=== PATIENT | male | born 1945 | race Caucasian/White ===

== ENCOUNTER 2017-01-11 08:16 | Day surgery (SDC) | payer MEDICARE, OTHER ==
[~2017-01-11] VITALS: Ht 190.5 cm; Wt 102.3 kg
[~2017-01-11 08:16] MED LIST: ADVAI250I INH; ALBU8I INH; ATEN1TAB55 PO; ATOR40TA49 PO; CLON.1 PO; DILTSR120 PO; FURO1TAB93 PO; GLIP10TA6 PO; JANT2TAB PO; JANU50TA PO; LEVO50IN PO; NEXI40CA PO; SODI650T PO; VITA400D PO; WARF2.5T40 PO
[2017-01-11 08:36] VITALS: BP 170/81; PULSE 75; RESP 20; TEMP 97.7; O2SAT 97
[2017-01-11] MEDS ORDERED: LEVO50TA4 PO (08:57)
[2017-01-11] MEDS ORDERED: NEXI40CA PO (08:57)
[2017-01-11] MEDS ORDERED: LEVO175T2 PO (08:57)
[2017-01-11] MEDS ORDERED: VITA400T2 (08:57)
[2017-01-11] MEDS ORDERED: ATOR40TA16 PO (08:57)
[2017-01-11] MEDS ORDERED: FURO20TA PO (08:57)
[2017-01-11] MEDS ORDERED: ATEN100T PO (08:57)
[2017-01-11] MEDS ORDERED: FURO40TA PO (08:57)
[2017-01-11] MEDS ORDERED: CLON0.1T PO (08:57)
[2017-01-11] MEDS ORDERED: DILT-64 PO (08:57)
[2017-01-11] MEDS ORDERED: JANT2.5T PO (08:57)
[2017-01-11] MEDS ORDERED: SODI650T PO (08:57)
[2017-01-11] MEDS ORDERED: GLIP5TAB8 PO (08:57)
[2017-01-11] MEDS ORDERED: SITA50 PO (08:57)
[2017-01-11 09:12] LABS: APTT (PATIENT) 35.8 SEC (24.3-30.1); INTERNATIONAL NORMALIZED RATIO 1.3 RATIO
[2017-01-11 09:14] LABS: BICARBONATE 26.6 MEQ/L (21.0-32.0); POTASSIUM 4.2 MEQ/L (3.5-5.1)
[2017-01-11] MEDS ORDERED: MIDAZOLAM HCL 5 MG/5 ML VIAL ONE (11:10)
[2017-01-11] MEDS ORDERED: fentaNYL CITRATE 250 MCG/5 ML AMP ONE (11:10)
--- NOTE | 2017-01-11 12:32 | PD.RAD ---
Post Procedure Progress Note Pre Procedure Diagnosis: (1) Acute renal failure superimposed on stage 4 chronic kidney disease (2) Dialysis AV fistula malfunction Post Procedure Diagnosis: (1) Dialysis AV fistula malfunction (2) Acute renal failure superimposed on stage 4 chronic kidney disease Procedure Date: Jan 11, 2017 Supervising Radiologist: Alexi Hurtado Anesthesia: Local, Conscious Sedation Plan of Activity Patient to Unit: ROPU Patient Condition: Good Additional Comments: Venogram demonstrated a centeral venous occlusion. Successful PTBA with excellent flow post procedure. Full dictated report to follow. See PACS Report for procedural detail/treatment Alexi Hurtado MD Jan 11, 2017 12:31
[2017-01-11 12:40] VITALS: BP 139/86; PULSE 68; RESP 16; TEMP 97.4; O2SAT 92
[2017-01-11 12:55] VITALS: BP 151/76; PULSE 56; RESP 18; O2SAT 92
[2017-01-11] MEDS ORDERED: IODIXANOL 320 MG/ML 50 ML VIAL (for RAD SPEC) I-ARTERIAL ONE (13:20)
[2017-01-11 13:25] VITALS: BP 159/62; PULSE 67; RESP 18; O2SAT 91
--- NOTE | 2017-01-11 13:31 | RADRPT ---
EXAM DATE/TIME: 01/11/2017 11:11 [facility] COMPARISON: FISTULAGRAM, RIGHT, January 11, 2017, 0:00. INDICATIONS : Patient presents with right upper arm edema in need of fistulagram with with possible central venous stenosis.. 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 Right upper extremity venogram. Right subclavian venogram. Evaluation of the superior vena cava. Angioplasty of an occluded segment of right subclavian vein. Followup venogram x2. The risks, benefits and alternatives to the procedure were explained and verbal and written consent w as obtained. The site was prepped in sterile fashion. Full sterile technique was used, including ca p, mask, sterile gloves and gown and a large sterile sheet. Hand hygiene and 2% chlorhexidine and/or betadine/alcohol prep was utilized per protocol for cutaneous antisepsis. The skin and subcutaneous tissues were infiltrated with local anesthetic solution The patient's arm was evaluated with ultrasound. The outflow was via the cephalic vein. This was iden tified and accessed under direct ultrasound visualization. Venography of the upper extremity was perf ormed through the 3 Syriac micropuncture dilator. This demonstrated occlusion of the subclavian vein. The 3 Syriac dilator was exchanged for a 0.035 angled Glidewire and 6 Syriac hemostatic sheath. A 0.0 35 angle Glidewire and Berenstein catheter were used to cross the occluded segment of central subclav coretta vein. The area of occlusion was treated with high pressure prolonged angioplasty using an 8 mm x 6 cm angioplasty balloon. A followup venogram demonstrated the subclavian vein to be widely patent. T he collaterals in the right chest were no longer identified. Evaluation of the upper arm demonstrate an area of mild stenosis in the proximal cephalic vein. The f istula itself could not be directly visualized due to the high flow through this. The patient tolerated the procedure well and there were no complications. Conscious sedation was per formed with the prescribed dosages and duration as above. EKG and oximetry remained stable throughou t the procedure. CONCLUSION: Uncomplicated recanalization of the right central subclavian vein. Alexi Hurtado MD on January 11, 2017 at 13:25 Board Certified Radiologist. This report was verified electronically.
[2017-01-11 13:55] VITALS: BP 129/77; PULSE 78; RESP 18; O2SAT 91
== END 2017-01-11 14:28 | disposition home or self-care (01) ==
LOC: HROP 08:16 → HRIP 08:18 → HROP 14:28
PROVIDERS: ATTEND Surgery Vascular Surgery
DX: T82.590A Other mechanical complication of surgically created arteriovenous fistula, initial encounter (principal); I12.9 Hypertensive chronic kidney disease with stage 1 through stage 4 chronic kidney disease, or unspecified chronic kidney disease; N18.9 Chronic kidney disease, unspecified; E11.21 Type 2 diabetes mellitus with diabetic nephropathy; N25.81 Secondary hyperparathyroidism of renal origin; I48.91 Unspecified atrial fibrillation; J44.9 Chronic obstructive pulmonary disease, unspecified
CPT/HCPCS: 36902; 80048; 85610; 85730; 99152; 99153; C1725; C1769; C1887; C1894; J2250; J3010; Q9967

== ENCOUNTER 2017-02-22 16:11 | Inpatient (IN) | payer MEDICARE, OTHER ==
[2017-02-22] VITALS (7 sets, daily range): BP systolic 112–150; BP diastolic 63–80; PULSE 71–88; RESP 16–20; TEMP 97.4–98.9; O2SAT 97–98
[~2017-02-22] VITALS: Ht 190.5 cm; Wt 90.1 kg
[~2017-02-22 16:11] MED LIST changes: -ADVAI250I INH; -ALBU8I INH; +ATEN100T PO; -ATEN1TAB55 PO; +ATOR40TA16 PO; -ATOR40TA49 PO; -CLON.1 PO; +CLON0.1T PO; +DILT-64 PO; -DILTSR120 PO; -FURO1TAB93 PO; +FURO20TA PO; +FURO40TA PO; -GLIP10TA6 PO; +GLIP5TAB8 PO; +JANT2.5T PO; -JANT2TAB PO; -JANU50TA PO; +LEVO175T2 PO; -LEVO50IN PO; +LEVO50TA4 PO; +SITA50 PO; -VITA400D PO; +VITA400T2; -WARF2.5T40 PO
[2017-02-22] MEDS ORDERED: VANCOMYCIN INJ 1,000 MG in SODIUM CHLOR 0.9% 250 ML INJ 250 ML IV STA (16:24)
[2017-02-22] MEDS ORDERED: PIPERACIL-TAZO 4.5 GM PREMIX 100 ML IV STA (16:24)
--- NOTE | 2017-02-22 16:53 | PD ---
HPI Chief Complaint: General Weakness Time Seen by Provider: 16:18 Travel History International Travel<30 days: No Contact w/Intl Traveler<30days: No Traveled to known affect area: No History of Present Illness HPI Patient is a 71-year-old male with history of atrial fibrillation, and poorly controlled diabetes who presents the emergency department with complaint of generalized weakness from the office of his packer denture. Patient has apparently had a wound on the right foot for unknown duration of time. He was seen at podiatry clinic today for evaluation of the wound when he complained of feeling generally weak, lightheaded and was not able get out of her wheelchair prompting ER visit. Per packer denture patient has evidence of gangrene and will need evaluation for possible amputation, osteomyelitis, etc. Patient is a poor historian and is unable to tell me how long the wound has been present for about per his gastric, at least several weeks duration if not longer. The glucoses are poorly controlled and they frankly don't even check them regularly and can't tell me what his blood glucose runs at home. Per EMS it was in the 90s. Patient is nonambulatory at baseline. Denies any fevers or chills documented. PFSH Past Medical History Arthritis: No Asthma: No Atrial Fibrillation: Yes Autoimmune Disease: No Anxiety: No Depression: No Heart Rhythm Problems: No Cancer: No Cardiovascular Problems: Yes (A-FIB) High Cholesterol: No Chemotherapy: No Chest Pain: No Congestive Heart Failure: No COPD: No Cerebrovascular Accident: No Diabetes: Yes Endocrine: No GERD: Yes Genitourinary: Yes Hiatal Hernia: No Hypertension: Yes Immune Disorder: No Kidney Stones: No Musculoskeletal: Yes Neurologic: No Psychiatric: No Reproductive: No Respiratory: No Immunizations Current: No Migraines: No Radiation Therapy: No Renal Failure: Yes Seizures: No Sickle Cell Disease: No Sleep Apnea: No Thyroid Disease: Yes Ulcer: No Past Surgical History Abdominal Surgery: No AICD: No Arteriovenous Shunt: No Cardiac Surgery: No Ear Surgery: No Endocrine Surgery: No Eye Surgery: No Genitourinary Surgery: No Gynecologic Surgery: No Insulin Pump: No Joint Replacement: No Oral Surgery: No Pacemaker: No Thoracic Surgery: No (TRACHEOTOMY 2 years ago) Other Surgery: Yes (Hx trach) Social History Alcohol Use: Yes (4 drinks daily) Tobacco Use: Yes (10-15 CIGARETTES) Substance Use: No Allergies-Medications (Allergen,Severity, Reaction): Coded Allergies: No Known Allergies (Unverified , 01/11/17) Reported Meds & Prescriptions Reported Meds & Active Scripts Active Reported Glipizide 5 Mg Tab 5 Mg PO DAILY Take 30 minutes before a meal Clonidine (Clonidine HCl) 0.1 Mg Tab 0.1 Mg PO BID Sodium Bicarbonate 650 Mg Tab 650 Mg PO TIDPC Vitamin D (Cholecalciferol) 400 Unit Tab DAILY Atorvastatin (Atorvastatin Calcium) 40 Mg Tab 40 Mg PO HS Jantoven (Warfarin) 2.5 Mg Tab 2.5 Mg PO DAILY Furosemide 20 Mg Tab 20 Mg PO HS Furosemide 40 Mg Tab 40 Mg PO DAILY Atenolol 100 Mg Tab 100 Mg PO BID Januvia (Sitagliptin Phosphate) 50 Mg Tab 50 Mg PO DAILY Diltiazem CD 24 HR 240 Mg Caper 240 Mg PO DAILY Levothyroxine (Levothyroxine Sodium) 175 Mcg Tab 175 Mcg PO DAILY Levothyroxine (Levothyroxine Sodium) 50 Mcg Tab 50 Mcg PO DAILY Nexium (Esomeprazole DR) 40 Mg Capdr 40 Mg PO DAILY Review of Systems ROS Limitations: Poor Historian Except as stated in HPI: all other systems reviewed are Neg Physical Exam Exam Limitations: Poor Historian Narrative GENERAL: Elderly male chronically ill-appearing in no acute distress SKIN: Chronic venous stasis changes to the bilateral lower extremities. On the plantar aspect of patient's right foot he has a large necrotic lesion with evidence of dry and wet gangrene and essentially encompasses the entire plantar aspect HEAD: Normocephalic. EYES: No scleral icterus. No injection or drainage. ENT: Mucous membranes pink and moist. NECK: Supple CARDIOVASCULAR: Regular rate and rhythm. No murmur appreciated. RESPIRATORY: No accessory muscle use. Clear to auscultation. Breath sounds equal bilaterally. GASTROINTESTINAL: Abdomen soft, non-tender, nondistended. MUSCULOSKELETAL: Chronic venous stasis changes and weakness in the bilateral lower extremities chronic per patient and family NEUROLOGICAL: Awake and alert. Motor grossly within normal limits. Normal speech. PSYCHIATRIC: Poor insight and judgment Data Data Last Documented VS Vital Signs Date Time Temp Pulse Resp B/P Pulse Ox O2 Delivery O2 Flow Rate FiO2 02/22/17 17:06 Room Air 02/22/17 16:29 98 02/22/17 16:21 98.4 88 18 140/80 Orders Complete Blood Count With Diff (4/11/17 16:24) Lactic Acid Sepsis Protocol (02/22/17 16:24) Blood Culture (02/22/17 16:24) Wound Culture And Gram Stain (02/22/17 16:24) Ecg Monitoring (02/22/17 16:24) Iv Access Insert/Monitor (02/22/17 16:24) Oximetry (02/22/17 16:24) Vancomycin Inj (Vancomycin Inj) (02/22/17 16:24) Piperacil-Tazo 4.5 Gm Premix (Zosyn 4.5 (02/22/17 16:24) Basic Metabolic Panel (Bmp) (02/22/17 16:24) Foot, Complete ([id number]) (02/22/17 ) Consult Vascular Surgery (02/22/17 ) Consult Podiatry (02/22/17 ) (Hub Use Only)Inp Phy Cons/Ref (02/22/17 ) (Hub Use Only)Inp Phy Cons/Ref (02/22/17 ) Labs Laboratory Tests Test 02/22/17 02/22/17 16:55 17:04 White Blood Count 37.7 TH/MM3 Red Blood Count 3.81 MIL/MM3 Hemoglobin 10.5 GM/DL Hematocrit 33.3 % Mean Corpuscular Volume 87.5 FL Mean Corpuscular Hemoglobin 27.7 PG Mean Corpuscular Hemoglobin 31.6 % Concent Red Cell Distribution Width 15.2 % Platelet Count 360 TH/MM3 Mean Platelet Volume 9.7 FL Neutrophils (%) (Auto) 96.0 % Lymphocytes (%) (Auto) 0.8 % Monocytes (%) (Auto) 2.6 % Eosinophils (%) (Auto) 0.0 % Basophils (%) (Auto) 0.6 % Neutrophils # (Auto) 36.1 TH/MM3 Lymphocytes # (Auto) 0.3 TH/MM3 Monocytes # (Auto) 1.0 TH/MM3 Eosinophils # (Auto) 0.0 TH/MM3 Basophils # (Auto) 0.2 TH/MM3 CBC Comment AUTO DIFF Differential Total Cells 100 Counted Neutrophils % (Manual) 96 % Band Neutrophils % 1 % Lymphocytes % 2 % Monocytes % 1 % Neutrophils # (Manual) 36.6 TH/MM3 Differential Comment FINAL DIFF MANUAL Hypersegmented Polys 1+ Toxic Granulation 1+ Toxic Vacuolation PRESENT Dohle Bodies PRESENT Platelet Estimate HIGH Platelet Morphology Comment NORMAL Red Cell Morphology Comment NORMAL Sodium Level 134 MEQ/L Potassium Level 3.8 MEQ/L Chloride Level 97 MEQ/L Carbon Dioxide Level 25.1 MEQ/L Anion Gap 12 MEQ/L Blood Urea Nitrogen 50 MG/DL Creatinine 4.32 MG/DL Estimat Glomerular Filtration 14 ML/MIN Rate Random Glucose 69 MG/DL Calcium Level 8.7 MG/DL Lactic Acid Level 2.0 mmol/L MDM Medical Decision Making Medical Screen Exam Complete: Yes Emergency Medical Condition: Yes Medical Record Reviewed: Yes Differential Diagnosis 71-year-old male with noncompliant diabetes here with generalized weakness and foot ulcer. Exam is consistent with both wet and dry gangrene of the right lower extremity along essentially entire plantar aspect of patient's right foot. Concern for osteomyelitis, peripheral vascular disease, sepsis. Narrative Course patient placed on monitor, IV established and blood obtained. Patient empirically treated with vancomycin and Zosyn. CBC, BMP, lactate, blood and wound cultures were obtained and notable for leukocytosis and baseline renal insufficiency. X-ray of the right foot showed[-]. Consult for vascular surgery and podiatry, Drs. Samano and Oscar were placed, evaluated in the emergency department and will be admitted for DKA versus AKA. Critical Care Narrative Aggregate critical care time was 45 minutes. Time to perform other separately billable procedures was not included in the critical care time. My time did not include minutes spent treating any other patients simultaneously or on activities that did not directly contribute to the patient's treatment. The services I provided to this patient were to treat and/or prevent clinically significant deterioration that could result in: Cardiopulmonary decompensation, loss of limb, , disability I provided critical care services requiring my management, as noted below: Chart data review, documentation time, medication orders and management, vital sign assessments/reviewing monitor data, ordering and reviewing lab tests, ordering and interpreting/reviewing x-rays and diagnostic studies, care of the patient and discussion of the patient with the admitting physicians. Sepsis Criteria SIRS Criteria (2 or more): WBC > 81148, < 4000 or > 10% bands Sepsis Criteria (SIRS+source): Infect source susp/known Criteria Outcome: Meets SIRS criteria, Meets sepsis criteria Diagnosis Primary Impression: Sepsis Qualified Code: A41.9 - Sepsis, due to unspecified organism Additional Impressions: Gangrene Diabetic foot ulcer Qualified Code: E11.621 - Diabetic ulcer of right midfoot associated with type 2 diabetes mellitus, unspecified ulcer stage Admitting Information Admitting Physician Requests: Admit Mayra Lanier MD Feb 22, 2017 16:52
[2017-02-22 17:19] LABS: AUTOMATED NEUTROPHIL # 36.1 TH/MM3 (1.8-7.7); BASOPHIL # 0.2 TH/MM3 (0-0.2); BASOPHIL % 0.6 % (0.0-2.0); HEMATOCRIT 33.3 % (39.0-51.0); LYMPH % 0.8 % (9.0-44.0); LYMPHOCYTE # 0.3 TH/MM3 (1.0-4.8); MEAN CELL VOLUME 87.5 FL (80.0-100.0); MEAN CORPUSCULAR HEMOGLOBIN 27.7 PG (27.0-34.0); MEAN CORPUSCULAR HGB CONC 31.6 % (32.0-36.0); MONO % 2.6 % (0.0-8.0); PLATELET COUNT 360 TH/MM3 (150-450); RED BLOOD COUNT 3.81 MIL/MM3 (4.50-5.90); RED CELL DISTRIBUTION WIDTH 15.2 % (11.6-17.2); WHITE BLOOD COUNT 37.7 TH/MM3 (4.0-11.0)
[2017-02-22 17:21] LABS: HEMO FLAGS AUTO DIFF
[2017-02-22 17:41] LABS: BICARBONATE 25.1 MEQ/L (21.0-32.0); POTASSIUM 3.8 MEQ/L (3.5-5.1)
[2017-02-22 17:45] LABS: BANDS 1 % (0-6); NEUTROPHIL # MANUAL DIFF 36.6 TH/MM3 (1.8-7.7); POLYS (SEG NEUTROPHILS) 96 % (16-70); WBC DIFF SAMPLE 100
[2017-02-22 17:46] LABS: DOHLE BODIES PRESENT (NONE SEEN); HYPERSEGMENTED POLYS 1+ (NORMAL); TOXIC GRANULATION 1+ (NORMAL)
[2017-02-22 17:47] LABS: PLATELET ESTIMATE SMEAR HIGH (NORMAL); PLATELET MORPHOLOGY NORMAL (NORMAL); SCAN/DIFF FINAL DIFF MANUAL; TOXIC VACUOLATION PRESENT (NONE SEEN)
--- NOTE | 2017-02-22 17:59 | RADRPT ---
EXAM DATE/TIME: 02/22/2017 17:46 [facility] COMPARISON: No previous studies available for comparison. INDICATIONS : Right foot pain and infection. MEDICAL HISTORY : Diabetes mellitus type II. SURGICAL HISTORY : None. ENCOUNTER: Initial ACUITY: 1 week PAIN SCORE: 5/10 LOCATION: Right foot FINDINGS: Examination demonstrates diffuse soft tissue swelling of the foot, with extensive subcutaneous emphys camilo seen greatest along the plantar aspect of the foot. Ulceration is suspected along the plantar asp ect of the foot. Posteriorly. CONCLUSION: Soft tissues extensive soft tissue emphysema, mottled in appearance very concerning for infection wit h gas-forming organism. No obvious osseous destruction is seen to suggest osteomyelitis. Abhi Seo MD on February 22, 2017 at 17:56 Board Certified Radiologist. This report was verified electronically.
--- NOTE | 2017-02-22 18:14 | PD.CAR.PN ---
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 Thanks J Objective: Vital Signs Date Time Temp Pulse Resp B/P Pulse Ox O2 Delivery O2 Flow Rate FiO2 02/22/17 17:06 Room Air 02/22/17 16:29 98 Room Air 02/22/17 16:21 98.4 88 18 140/80 98 Labs: Laboratory Tests Test 02/22/17 02/22/17 16:55 17:04 White Blood Count 37.7 TH/MM3 (4.0-11.0) Red Blood Count 3.81 MIL/MM3 (4.50-5.90) Hemoglobin 10.5 GM/DL (13.0-17.0) Hematocrit 33.3 % (39.0-51.0) Mean Corpuscular Volume 87.5 FL (80.0-100.0) Mean Corpuscular Hemoglobin 27.7 PG (27.0-34.0) Mean Corpuscular Hemoglobin 31.6 % Concent (32.0-36.0) Red Cell Distribution Width 15.2 % (11.6-17.2) Platelet Count 360 TH/MM3 (150-450) Mean Platelet Volume 9.7 FL (7.0-11.0) Neutrophils (%) (Auto) 96.0 % (16.0-70.0) Lymphocytes (%) (Auto) 0.8 % (9.0-44.0) Monocytes (%) (Auto) 2.6 % (0.0-8.0) Eosinophils (%) (Auto) 0.0 % (0.0-4.0) Basophils (%) (Auto) 0.6 % (0.0-2.0) Neutrophils # (Auto) 36.1 TH/MM3 (1.8-7.7) Lymphocytes # (Auto) 0.3 TH/MM3 (1.0-4.8) Monocytes # (Auto) 1.0 TH/MM3 (0-0.9) Eosinophils # (Auto) 0.0 TH/MM3 (0-0.4) Basophils # (Auto) 0.2 TH/MM3 (0-0.2) CBC Comment AUTO DIFF Differential Total Cells 100 Counted Neutrophils % (Manual) 96 % (16-70) Band Neutrophils % 1 % (0-6) Lymphocytes % 2 % (9-44) Monocytes % 1 % (0-8) Neutrophils # (Manual) 36.6 TH/MM3 (1.8-7.7) Differential Comment FINAL DIFF MANUAL Hypersegmented Polys 1+ (NORMAL) Toxic Granulation 1+ (NORMAL) Toxic Vacuolation PRESENT (NONE SEEN) Dohle Bodies PRESENT (NONE SEEN) Platelet Estimate HIGH (NORMAL) Platelet Morphology Comment NORMAL (NORMAL) Red Cell Morphology Comment NORMAL (NORMAL) Sodium Level 134 MEQ/L (136-145) Potassium Level 3.8 MEQ/L (3.5-5.1) Chloride Level 97 MEQ/L (98-107) Carbon Dioxide Level 25.1 MEQ/L (21.0-32.0) Anion Gap 12 MEQ/L (5-15) Blood Urea Nitrogen 50 MG/DL (7-18) Creatinine 4.32 MG/DL (0.60-1.30) Estimat Glomerular Filtration 14 ML/MIN (>89) Rate Random Glucose 69 MG/DL (74-106) Calcium Level 8.7 MG/DL (8.5-10.1) Lactic Acid Level 2.0 mmol/L (0.4-2.0) Result Diagram: 02/22/17 1655 02/22/17 1655 Jeovany Ernst MD Feb 22, 2017 18:14
[2017-02-22] MEDS ORDERED: SODIUM CHLORIDE 0.9% FLUSH 10 ML FLUSH IV FLUSH PRN (18:15)
[2017-02-22] MEDS ORDERED: ONDANSETRON HCL 4 MG/2 ML VIAL IVP PRN (18:15)
[2017-02-22] MEDS ORDERED: NALOXONE HCL 0.4 MG/ML AMP IV PRN (18:15)
--- NOTE | 2017-02-22 19:02 | MB ---
cc: JEOVANY ANDREWS MD DATE OF CONSULTATION 02/22/[address] Andrews, vascular surgery. REASON FOR CONSULTATION Peripheral vascular disease and gangrene of the right foot. HISTORY OF THE PRESENT ILLNESS This 71-year-old gentleman presents to emergency room from the insurance sales assistant's office with foul-smelling wet gangrene of his right foot and I am consulted for surgical implications of the same. The patient states that he has been bedridden now for several months. He has not walked on this foot. He is starting to develop mild contracture in his right knee as well. The patient is a chronic renal insufficiency patient with atrial fibrillation, diabetes mellitus and multiple other medical problems. Had previous numerous admissions to this institution. The patient is now being admitted for rehydration, resuscitation and further care and surgical vascular input is sought. PAST MEDICAL HISTORY Past medical history is that of: 1. Diabetes mellitus. 2. Hypertension. 3. Congestive heart failure. 4. Atrial fibrillation. 5. Chronic obstructive pulmonary disease. 6. Chronic renal insufficiency with marginal renal function. The patient does have a clotted A-V fistula in the right arm from before. MEDICATIONS Can be found on the record. They are multiple including Coumadin. ALLERGIES NO KNOWN ALLERGIES. PAST SURGICAL HISTORY Is that of: Tracheostomy. SOCIAL HISTORY The patient smokes about 10-15 cigarettes per day and drinks about one ounce of liquor every day. He does not walk anymore at all. PHYSICAL EXAMINATION GENERAL: Reveals an unfortunate gentleman appearing older than his actual stated age. HEENT: Normocephalic. No trauma to the head. Pupils equally reactive. Extraocular muscles intact. The patient appears to be ill, gaunt and clearly in functional decline and pale. Pupils equally reactive. Extraocular muscles intact. NECK: Supple. Bilateral carotid pulses and bilateral faint bruits. CHEST: Bilateral breath sounds decreased over both bases and apices consistent with COPD with some expiratory wheezing. HEART: Irregular rhythm. The patient is in slow atrial fibrillation about 80ish or so. ABDOMEN: Soft. No rebound or guarding. No masses. EXTREMITIES: The patient actually has palpable femoral pulses and dopplerable popliteal pulses bilateral. On the left side the patient has a weak posterior tibial pulse and no dorsalis pedis. And on the right side he has nothing below the level of the knee. Both legs display thickened, leathery skin from the knees down consistent with chronic venous insufficiency, stasis and chronic erythema and thickening of the irritation of the skin, early elephantiasis. The right foot is swollen, ruborous, and the entire plantar surface of the foot is gangrenous. This is a wet gangrene, foul-smelling. The patient has no sensation in the right foot. NEUROLOGIC: The patient is awake, alert. Bryn coma scale is 15. He can move all four extremities with limitations above-noted. IMPRESSION AND RECOMMENDATIONS At this point the patient has limited options. He is dehydrated with signs and symptoms of early sepsis due to the gangrene of the foot. The only appropriate thing is an amputation. The patient is bed ridden, has not walked in months. He has atrophy of the muscles of both legs. As far as the blood supply is concerned, probably the vasculature would support below-knee amputation. However in the bedridden status and functional decline the patient will get further contracture of the knee and then breakdown the stump, so the most appropriate and expeditious thing is to perform an above-knee amputation. I have discussed this with the patient and family. He definitely does not want surgery today or tomorrow, and I believe it is reasonable to rehydrate and put him on antibiotics and optimize his hemodynamic and respiratory status as best as we can prior to going to the operating room. While the surgery itself will not be a long, clearly it is risky in this gentleman. He is to stay off Coumadin for another day or two, and we will proceed with surgery as soon as the patient is ready mentally for it, in my book hopefully tomorrow. I plan to do staged operation, i.e. first do guillotine below-knee amputation to remove the necrotic part then allowed day or 2 of the intravenous antibiotics and then go ahead and do above-knee amputation with closure. In the meantime he should be placed on antibiotics, hydrated and appropriate consults obtained. I will discuss this with medicine. I thank you very much for referral. I will continue to follow patient with you. Jeovany Andrews SJ/KK /6:02 PM /6:35 PM [id number]
[2017-02-22 19:41] LABS: BICARBONATE 26.1 MEQ/L (21.0-32.0)
[2017-02-23] VITALS (8 sets, daily range): BP systolic 113–147; BP diastolic 58–74; PULSE 68–78; RESP 17–20; TEMP 96.8–98.9; O2SAT 93–100
[2017-02-23] MEDS: SODIUM BICARBONATE 650 MG TAB PO SCH ×4 (00:05→18:35)
[2017-02-23] MEDS: ATORVASTATIN 40 MG TAB PO SCH ×2 (00:05→21:23)
[2017-02-23] MEDS: ATENOLOL 100 MG TAB PO SCH ×3 (00:05→21:23)
[2017-02-23] MEDS: cloNIDine HCL 0.1 MG TAB PO SCH ×3 (00:05→21:23)
[2017-02-23] MEDS: SODIUM CHLORIDE 0.9% FLUSH 10 ML FLUSH IV FLUSH SCH ×3 (00:06→21:00)
[2017-02-23 02:35] LABS: AUTOMATED NEUTROPHIL # 30.4 TH/MM3 (1.8-7.7); BASOPHIL # 0.2 TH/MM3 (0-0.2); BASOPHIL % 0.5 % (0.0-2.0); HEMATOCRIT 29.5 % (39.0-51.0); LYMPH % 1.6 % (9.0-44.0); LYMPHOCYTE # 0.5 TH/MM3 (1.0-4.8); MEAN CELL VOLUME 87.9 FL (80.0-100.0); MEAN CORPUSCULAR HEMOGLOBIN 29.1 PG (27.0-34.0); MEAN CORPUSCULAR HGB CONC 33.1 % (32.0-36.0); MONO % 3.1 % (0.0-8.0); NEUT % 94.8 % (16.0-70.0); PLATELET COUNT 313 TH/MM3 (150-450); RED BLOOD COUNT 3.36 MIL/MM3 (4.50-5.90); RED CELL DISTRIBUTION WIDTH 15.4 % (11.6-17.2); WHITE BLOOD COUNT 32.1 TH/MM3 (4.0-11.0)
[2017-02-23 02:38] LABS: ALT (GPT) LESS THAN 6 U/L (12-78); ANION GAP 12 MEQ/L (5-15); AST (GOT) 16 U/L (15-37); BICARBONATE 24.8 MEQ/L (21.0-32.0); BLOOD UREA NITROGEN 51 MG/DL (7-18); CHLORIDE 100 MEQ/L (98-107); GLOMERULAR FILTRATION RATE 14 ML/MIN (>89); POTASSIUM 3.5 MEQ/L (3.5-5.1); SODIUM (NA) 137 MEQ/L (136-145)
[2017-02-23 02:40] LABS: ALKALINE PHOSPHATASE 185 U/L (45-117); TOTAL BILIRUBIN ADULT 0.5 MG/DL (0.2-1.0)
[2017-02-23 02:48] LABS: HEMO FLAGS AUTO DIFF
[2017-02-23 03:08] LABS: PROTHROMBIN TIME - PATIENT GREATER THAN 180.0 SEC (9.8-11.6)
[2017-02-23 03:15] LABS: INTERNATIONAL NORMALIZED RATIO GREATER THAN 14.5 RATIO
[2017-02-23 03:16] LABS: BANDS 22 % (0-6); DOHLE BODIES PRESENT (NONE SEEN); NEUTROPHIL # MANUAL DIFF 31.8 TH/MM3 (1.8-7.7); PLATELET ESTIMATE SMEAR NORMAL (NORMAL); PLATELET MORPHOLOGY NORMAL (NORMAL); POLYS (SEG NEUTROPHILS) 77 % (16-70); SCAN/DIFF FINAL DIFF MANUAL; TOXIC GRANULATION 1+ (NORMAL); WBC DIFF SAMPLE 100
[2017-02-23 05:42] LABS: PROTHROMBIN TIME - PATIENT GREATER THAN 180.0 SEC (9.8-11.6)
[2017-02-23 05:44] LABS: INTERNATIONAL NORMALIZED RATIO GREATER THAN 14.5 RATIO
[2017-02-23] MEDS: LEVOTHYROXINE SODIUM 75 MCG TAB PO SCH (06:48)
[2017-02-23] MEDS: LEVOTHYROXINE SODIUM 100 MCG TAB PO SCH (06:48)
--- NOTE | 2017-02-23 07:05 | PD.VS.CON ---
History of Present Illness Chief Complaint: R foot sepsis Consult Requested by: Dr. Lewis History of Present Illness 71 yo male with R foot foul smelling drainage. Presented through ED and appears to be septic although alert. Pt w/ h/o DM, PAD, CHF, and ESRD. Most notably, he is nonambulatory. Denies f/c. Dr. Lewis recommended amputation and I was asked for 2nd opinion. Past/Family/Social History Past Medical History DM ESRD on HD CHF CAD HGTN A-fib COPD Past Surgical History trach AVF Social History lives in facility Home Medications Reported Medications Glipizide 5 Mg Tab5 Mg PO DAILY #30 TAB Ref 0 Take 30 minutes before a meal 01/11/17 Clonidine 0.1 Mg Tab0.1 Mg PO BID #60 TAB Ref 0 01/11/17 Sodium Bicarbonate 650 Mg [id number] Mg PO TIDPC #90 TAB Ref 0 01/11/17 Cholecalciferol (Vitamin D)400 Unit Tab Daily 01/11/17 Atorvastatin 40 Mg Tab40 Mg PO HS #30 TAB Ref 0 01/11/17 Furosemide 40 Mg Tab40 Mg PO DAILY #30 TAB Ref 0 01/11/17 Atenolol 100 Mg Pna600 Mg PO BID #60 TAB Ref 0 01/11/17 Sitagliptin (Januvia)50 Mg Tab50 Mg PO DAILY #30 TAB Ref 0 01/11/17 Diltiazem CD 24 HR 240 Mg [id number] Mg PO DAILY #30 CAP Ref 0 01/11/17 Levothyroxine 175 Mcg Bgt639 Mcg PO DAILY #30 TAB Ref 0 01/11/[address] (Nexium)40 Mg Capdr40 Mg PO DAILY Ref 0 01/11/17 Discontinued Reported Medications Furosemide 20 Mg Tab20 Mg PO HS Ref 0 01/11/17 Levothyroxine 50 Mcg Tab50 Mcg PO DAILY #30 TAB Ref 0 01/11/17 Coded Allergies: No Known Allergies (Unverified , 01/11/17) Review of Systems Musculoskeletal: COMPLAINS OF: Joint pain, Muscle aches Integumentary: COMPLAINS OF: Abnormal pigmentation Physical Exam Vitals/I&O Date Time Temp Pulse Resp B/P Pulse Ox O2 Delivery O2 Flow Rate FiO2 02/23/17 04:00 98.0 71 20 128/66 97 02/23/17 00:00 97.7 68 20 114/58 100 02/22/17 20:04 98.9 82 16 136/68 97 02/22/17 20:00 97.4 71 20 112/67 97 02/22/17 19:51 97 02/22/17 19:00 81 16 141/63 97 Room Air 02/22/17 17:06 Room Air 02/22/17 16:29 98 Room Air 02/22/17 16:21 98.4 88 18 140/80 98 Neuro: alert, somnolent but appropriate HEENT: Nc/AT Heart: irreg rate Lungs: nonlabored breathing Vascular: nonpalpable pulses Extremities: foul smelling R foot with clear wet gangrene Laboratory Tests Test 02/22/17 02/22/17 02/22/17 02/23/17 16:55 17:04 18:54 01:58 White Blood Count 37.7 32.1 Red Blood Count 3.81 3.36 Hemoglobin 10.5 9.8 Hematocrit 33.3 29.5 Mean Corpuscular Volume 87.5 87.9 Mean Corpuscular Hemoglobin 27.7 29.1 Mean Corpuscular Hemoglobin 31.6 33.1 Concent Red Cell Distribution Width 15.2 15.4 Platelet Count 360 313 Mean Platelet Volume 9.7 9.6 Neutrophils (%) (Auto) 96.0 94.8 Lymphocytes (%) (Auto) 0.8 1.6 Monocytes (%) (Auto) 2.6 3.1 Eosinophils (%) (Auto) 0.0 0.0 Basophils (%) (Auto) 0.6 0.5 Neutrophils # (Auto) 36.1 30.4 Lymphocytes # (Auto) 0.3 0.5 Monocytes # (Auto) 1.0 1.0 Eosinophils # (Auto) 0.0 0.0 Basophils # (Auto) 0.2 0.2 CBC Comment AUTO DIFF AUTO DIFF Differential Total Cells 100 100 Counted Neutrophils % (Manual) 96 77 Band Neutrophils % 1 22 Lymphocytes % 2 1 Monocytes % 1 Neutrophils # (Manual) 36.6 31.8 Differential Comment FINAL DIFF FINAL DIFF MANUAL MANUAL Hypersegmented Polys 1+ Toxic Granulation 1+ 1+ Toxic Vacuolation PRESENT Dohle Bodies PRESENT PRESENT Platelet Estimate HIGH NORMAL Platelet Morphology Comment NORMAL NORMAL Red Cell Morphology Comment NORMAL Sodium Level 134 135 137 Potassium Level 3.8 4.0 3.5 Chloride Level 97 97 100 Carbon Dioxide Level 25.1 26.1 24.8 Anion Gap 12 12 12 Blood Urea Nitrogen 50 50 51 Creatinine 4.32 4.24 4.19 Estimat Glomerular Filtration 14 14 14 Rate Random Glucose 69 73 88 Calcium Level 8.7 8.4 8.1 Lactic Acid Level 2.0 Prothrombin Time GREATER THAN 180.0 Prothromb Time International GREATER THAN Ratio 14.5 Total Bilirubin 0.5 Aspartate Amino Transf 16 (AST/SGOT) Alanine Aminotransferase LESS THAN 6 (ALT/SGPT) Alkaline Phosphatase 185 Total Protein 6.0 Albumin 1.4 Test 02/23/17 02/23/17 04:26 04:30 Prothrombin Time GREATER THAN 180.0 Prothromb Time International GREATER THAN Ratio 14.5 Blood Type B POSITIVE B POSITIVE Antibody Screen NEGATIVE Blood Bank Comment Date/Time Procedure Status Source Growth 02/22/17 17:10 Gram Stain Received Wound Foot Pending 02/22/17 17:10 Wound Culture Received Wound Foot Pending 02/22/17 16:55 Aerobic Blood Culture Received Blood Peripheral Pending 02/22/17 16:55 Anaerobic Blood Culture Received Blood Peripheral Pending Last 48 hours Impressions Foot X-Ray 02/22/17 0000 Signed Impressions: Service Date/Time: Wednesday, February 22, 2017 17:46 - CONCLUSION: Soft tissues extensive soft tissue emphysema, mottled in appearance very concerning for infection with gas-forming organism. No obvious osseous destruction is seen to suggest osteomyelitis. Abhi Seo MD Assessment and Plan Plan I agree wholeheartedly with Dr. Lewis. Mr. Zendejas needs a staged amputation - guillotine BKA today and then AKA in the near future. I think his foot is making him systemically ill as evidenced by profound coagulopathy and leukocytosis. He needs appropriate INR reversal, with caution for CHF exacerbation for volume, broad antibiotics for polymicrobial infection. The patient seems to understand the need for amputation. Malick Field MD FACS sugar controller [facility] - [facility] V[facility] Surgery at [facility] [phone] Malick Field MD Feb 23, 2017 07:05
[2017-02-23] MEDS ORDERED: PHYTONADIONE 5 MG TAB PO STA (07:22)
[2017-02-23] MEDS ORDERED: glipiZIDE 5 MG TAB PO SCH (08:00)
[2017-02-23] MEDS: PANTOPRAZOLE SOD 40 MG DELAYED RELEASE TAB PO SCH (08:28)
[2017-02-23] MEDS: DILTIAZEM-CD 240 MG CAP ER PO SCH (08:28)
[2017-02-23] MEDS ORDERED: FUROSEMIDE 40 MG TAB PO SCH (09:00)
--- NOTE | 2017-02-23 09:15 | PD.CAR.PN ---
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 Thanks J 02/23/17 Appreciate 's evaluation and second opinion. Completely agree. Will take patient to OR for staged surgeries. BKA today, followed by [facility] Tuesday or Tuesday. PT/INR consistent with coagulopathy and sepsis superimposed on Coumadintherapy Receiving FFP now Will give K centra if needed after FFP transfused. PT/INR at noon Objective: Vital Signs Date Time Temp Pulse Resp B/P Pulse Ox O2 Delivery O2 Flow Rate FiO2 02/23/17 04:00 98.0 71 20 128/66 97 02/23/17 00:00 97.7 68 20 114/58 100 02/22/17 20:04 98.9 82 16 136/68 97 02/22/17 20:00 97.4 71 20 112/67 97 02/22/17 19:51 97 02/22/17 19:00 81 16 141/63 97 Room Air 02/22/17 17:06 Room Air 02/22/17 16:29 98 Room Air 02/22/17 16:21 98.4 88 18 140/80 98 Labs: Laboratory Tests Test 02/23/17 02/23/17 02/23/17 01:58 04:26 04:30 White Blood Count 32.1 TH/MM3 (4.0-11.0) Red Blood Count 3.36 MIL/MM3 (4.50-5.90) Hemoglobin 9.8 GM/DL (13.0-17.0) Hematocrit 29.5 % (39.0-51.0) Mean Corpuscular Volume 87.9 FL (80.0-100.0) Mean Corpuscular Hemoglobin 29.1 PG (27.0-34.0) Mean Corpuscular Hemoglobin 33.1 % Concent (32.0-36.0) Red Cell Distribution Width 15.4 % (11.6-17.2) Platelet Count 313 TH/MM3 (150-450) Mean Platelet Volume 9.6 FL (7.0-11.0) Neutrophils (%) (Auto) 94.8 % (16.0-70.0) Lymphocytes (%) (Auto) 1.6 % (9.0-44.0) Monocytes (%) (Auto) 3.1 % (0.0-8.0) Eosinophils (%) (Auto) 0.0 % (0.0-4.0) Basophils (%) (Auto) 0.5 % (0.0-2.0) Neutrophils # (Auto) 30.4 TH/MM3 (1.8-7.7) Lymphocytes # (Auto) 0.5 TH/MM3 (1.0-4.8) Monocytes # (Auto) 1.0 TH/MM3 (0-0.9) Eosinophils # (Auto) 0.0 TH/MM3 (0-0.4) Basophils # (Auto) 0.2 TH/MM3 (0-0.2) CBC Comment AUTO DIFF Differential Total Cells 100 Counted Neutrophils % (Manual) 77 % (16-70) Band Neutrophils % 22 % (0-6) Lymphocytes % 1 % (9-44) Neutrophils # (Manual) 31.8 TH/MM3 (1.8-7.7) Differential Comment FINAL DIFF MANUAL Toxic Granulation 1+ (NORMAL) Dohle Bodies PRESENT (NONE SEEN) Platelet Estimate NORMAL (NORMAL) Platelet Morphology Comment NORMAL (NORMAL) Prothrombin Time GREATER THAN GREATER THAN 180.0 SEC 180.0 SEC (9.8-11.6) (9.8-11.6) Prothromb Time International GREATER THAN GREATER THAN Ratio 14.5 RATIO 14.5 RATIO Sodium Level 137 MEQ/L (136-145) Potassium Level 3.5 MEQ/L (3.5-5.1) Chloride Level 100 MEQ/L (98-107) Carbon Dioxide Level 24.8 MEQ/L (21.0-32.0) Anion Gap 12 MEQ/L (5-15) Blood Urea Nitrogen 51 MG/DL (7-18) Creatinine 4.19 MG/DL (0.60-1.30) Estimat Glomerular Filtration 14 ML/MIN (>89) Rate Random Glucose 88 MG/DL (74-106) Calcium Level 8.1 MG/DL (8.5-10.1) Total Bilirubin 0.5 MG/DL (0.2-1.0) Aspartate Amino Transf 16 U/L (15-37) (AST/SGOT) Alanine Aminotransferase LESS THAN 6 (ALT/SGPT) U/L (12-78) Alkaline Phosphatase 185 U/L (45-117) Total Protein 6.0 GM/DL (6.4-8.2) Albumin 1.4 GM/DL (3.4-5.0) Blood Type B POSITIVE B POSITIVE Antibody Screen NEGATIVE Blood Bank Comment Result Diagram: 02/23/17 0158 02/23/17 0158 Jeovany Ernst MD Feb 23, 2017 09:15
[2017-02-23] MEDS ORDERED: SODIUM CHLORID 0.9% 500 ML IV PRN (11:00)
[2017-02-23] MEDS ORDERED: POVIDONE IODINE 5% (ANTISEPSIS KIT) 4 APPLICATIONS EACH NARE PRN (11:00)
[2017-02-23] MEDS ORDERED: LACTATED RINGER'S 1000 ML IV PRN (11:00)
[2017-02-23] MEDS ORDERED: INSULIN HUMAN REGULAR 1,000 UNITS/10 ML VIAL SQ PRN (11:00)
[2017-02-23] MEDS ORDERED: CHLORHEXIDINE GLUCONATE 2 % 1 PACK (2 CLOTHS) TOPICAL PRN (11:00)
[2017-02-23] MEDS ORDERED: METOPROLOL TARTRATE 25 MG TAB PO PRN (11:00)
--- NOTE | 2017-02-23 11:38 | EKG ---
Date Performed: 02/23/2017 Time Performed: 10:31:29 PTAGE: 71 years EKG: ATRIAL FIBRILLATION MODERATE ST DEPRESSION ABNORMAL ECG PREVIOUS TRACING : 01/14/2016 12.08 DOCTOR: Gabriel Justin Interpretating Date/Time 02/23/2017 11:37:30
[2017-02-23] MEDS ORDERED: LACTATED RINGER'S 1000 ML INJ 1,000 ML IV ONE ×2 (12:00)
[2017-02-23] MEDS ORDERED: PROPOFOL 200 MG/20 ML AMP IV ONE ×2 (12:00)
--- NOTE | 2017-02-23 12:04 | HHI.HP ---
History of Present Illness Service Family medicine Primary Care Physician Antoni Bird, DO Admission Diagnosis sepsis, right lower extremity gangrene Diagnoses: History of Present Illness Patient is a 71-year-old male with history of atrial fibrillation, and poorly controlled diabetes who presents the emergency department with complaint of generalized weakness. Patient has apparently had a wound on the right foot for a reported 3-4 years. Per credit rating inspector patient has evidence of gangrene and will need evaluation for possible amputation, osteomyelitis, etc. Patient is nonambulatory at baseline. Denies any fevers or chills documented. Review of Systems Constitutional: COMPLAINS OF: Fatigue Respiratory: DENIES: Cough, Sputum production, Shortness of breath Cardiovascular: DENIES: Chest pain, Palpitations, Orthopnea Gastrointestinal: DENIES: Abdominal pain, Constipation, Nausea, Vomiting Musculoskeletal: COMPLAINS OF: Stiffness Neurologic: DENIES: Headache, Seizures Psychiatric: DENIES: Anxiety, Confusion Past Family Social History Allergies: Coded Allergies: No Known Allergies (Unverified , 01/11/17) Past Medical History AFIB Hyperlipidemia Diabetes GERD Hypertension Renal Failure Thyroid Disease Past Surgical History Tracheostomy 2 years ago Reported Medications Reported Meds & Active Scripts Active Reported Glipizide 5 Mg Tab 5 Mg PO DAILY Take 30 minutes before a meal Clonidine (Clonidine HCl) 0.1 Mg Tab 0.1 Mg PO BID Sodium Bicarbonate 650 Mg Tab 650 Mg PO TIDPC Vitamin D (Cholecalciferol) 400 Unit Tab DAILY Atorvastatin (Atorvastatin Calcium) 40 Mg Tab 40 Mg PO HS Furosemide 40 Mg Tab 40 Mg PO DAILY Atenolol 100 Mg Tab 100 Mg PO BID Januvia (Sitagliptin Phosphate) 50 Mg Tab 50 Mg PO DAILY Diltiazem CD 24 HR 240 Mg Caper 240 Mg PO DAILY Levothyroxine (Levothyroxine Sodium) 175 Mcg Tab 175 Mcg PO DAILY Nexium (Esomeprazole DR) 40 Mg Capdr 40 Mg PO DAILY Active Ordered Medications Current Medications Medications (Trade) Dose Ordered Sig/[place] Route Start Time Stop Time Status Last Admin (NS Flush) 2 ml UNSCH PRN IV FLUSH 02/22/17 18:15 (NS Flush) 2 ml BID IV FLUSH 02/22/17 21:00 02/23/17 08:28 (Zofran Inj) 4 mg Q6H PRN IVP 02/22/17 18:15 (Narcan Inj) 0.4 mg UNSCH PRN IV 02/22/17 18:15 ([place] 10-325 Mg) 1 tab Q4H PRN PO 02/22/17 18:15 (Tenormin) 100 mg BID PO 02/22/17 21:00 02/23/17 08:28 (Lipitor) 40 mg HS PO 02/22/17 21:00 02/23/17 00:05 (Catapres) 0.1 mg BID PO 02/22/17 21:00 02/23/17 08:28 (Cardizem Cd) 240 mg DAILY PO 02/23/17 09:00 02/23/17 08:28 (Lasix) 40 mg DAILY PO 02/23/17 09:00 02/23/17 08:28 (Glucotrol) 5 mg DAILYAC PO 02/23/17 08:00 02/23/17 08:28 (Januvia) 50 mg DAILY PO 02/23/17 09:00 02/23/17 08:28 (Sodium Bicarbonate) 650 mg TIDPC PO 02/22/17 18:30 02/23/17 08:28 (Protonix) 40 mg DAILY PO 02/23/17 09:00 02/23/17 08:28 (Synthroid) 100 mcg DAILY@06 PO 02/23/17 06:00 02/23/17 06:48 Levothyroxine Sodium 75 mcg 75 mcg DAILY@06 PO 02/23/17 06:00 02/23/17 06:48 Lactated Ringer's 1,000 ml @ 30 mls/hr Q24H PRN IV 02/23/17 11:00 02/26/17 10:59 (NS 500 ml Inj) 500 ml @ 30 mls/hr [id number] PRN IV 02/23/17 11:00 02/26/17 10:59 Social History Smokes daily ETOH - 3-4 per day Lives with Physical Exam Vital Signs Vital Signs Date Time Temp Pulse Resp B/P Pulse Ox O2 Delivery O2 Flow Rate FiO2 02/23/17 10:58 98.2 76 17 126/70 98 02/23/17 09:15 97.8 78 18 135/73 96 02/23/17 08:00 97.3 76 18 137/70 97 02/23/17 04:00 98.0 71 20 128/66 97 02/23/17 00:00 97.7 68 20 114/58 100 02/22/17 20:04 98.9 82 16 136/68 97 02/22/17 20:00 97.4 71 20 112/67 97 02/22/17 19:51 97 02/22/17 19:00 81 16 141/63 97 Room Air 02/22/17 17:06 Room Air 02/22/17 16:29 98 Room Air 02/22/17 16:21 98.4 88 18 140/80 98 Physical Exam GENERAL: Elderly male chronically ill-appearing in no acute distress SKIN: Chronic venous stasis changes to the bilateral lower extremities. On the plantar aspect of patient's right foot he has a large necrotic lesion with evidence of dry and wet gangrene and essentially encompasses the entire plantar aspect HEAD: Normocephalic. EYES: No scleral icterus. No injection or drainage. ENT: Mucous membranes pink and moist. NECK: Supple CARDIOVASCULAR: Regular rate and rhythm. No murmur appreciated. RESPIRATORY: No accessory muscle use. Clear to auscultation. Breath sounds equal bilaterally. GASTROINTESTINAL: Abdomen soft, non-tender, nondistended. MUSCULOSKELETAL: Chronic venous stasis changes and weakness in the bilateral lower extremities chronic per patient and family NEUROLOGICAL: Awake and alert. Motor grossly within normal limits. Normal speech. PSYCHIATRIC: Poor insight and judgment Laboratory Laboratory Tests Test 02/22/17 02/22/17 02/22/17 02/23/17 16:55 17:04 18:54 01:58 White Blood Count 37.7 32.1 Red Blood Count 3.81 3.36 Hemoglobin 10.5 9.8 Hematocrit 33.3 29.5 Mean Corpuscular Volume 87.5 87.9 Mean Corpuscular Hemoglobin 27.7 29.1 Mean Corpuscular Hemoglobin 31.6 33.1 Concent Red Cell Distribution Width 15.2 15.4 Platelet Count 360 313 Mean Platelet Volume 9.7 9.6 Neutrophils (%) (Auto) 96.0 94.8 Lymphocytes (%) (Auto) 0.8 1.6 Monocytes (%) (Auto) 2.6 3.1 Eosinophils (%) (Auto) 0.0 0.0 Basophils (%) (Auto) 0.6 0.5 Neutrophils # (Auto) 36.1 30.4 Lymphocytes # (Auto) 0.3 0.5 Monocytes # (Auto) 1.0 1.0 Eosinophils # (Auto) 0.0 0.0 Basophils # (Auto) 0.2 0.2 CBC Comment AUTO DIFF AUTO DIFF Differential Total Cells 100 100 Counted Neutrophils % (Manual) 96 77 Band Neutrophils % 1 22 Lymphocytes % 2 1 Monocytes % 1 Neutrophils # (Manual) 36.6 31.8 Differential Comment FINAL DIFF FINAL DIFF MANUAL MANUAL Hypersegmented Polys 1+ Toxic Granulation 1+ 1+ Toxic Vacuolation PRESENT Dohle Bodies PRESENT PRESENT Platelet Estimate HIGH NORMAL Platelet Morphology Comment NORMAL NORMAL Red Cell Morphology Comment NORMAL Sodium Level 134 135 137 Potassium Level 3.8 4.0 3.5 Chloride Level 97 97 100 Carbon Dioxide Level 25.1 26.1 24.8 Anion Gap 12 12 12 Blood Urea Nitrogen 50 50 51 Creatinine 4.32 4.24 4.19 Estimat Glomerular Filtration 14 14 14 Rate Random Glucose 69 73 88 Calcium Level 8.7 8.4 8.1 Lactic Acid Level 2.0 Prothrombin Time GREATER THAN 180.0 Prothromb Time International GREATER THAN Ratio 14.5 Total Bilirubin 0.5 Aspartate Amino Transf 16 (AST/SGOT) Alanine Aminotransferase LESS THAN 6 (ALT/SGPT) Alkaline Phosphatase 185 Total Protein 6.0 Albumin 1.4 Test 02/23/17 02/23/17 04:26 04:30 Prothrombin Time GREATER THAN 180.0 Prothromb Time International GREATER THAN Ratio 14.5 Blood Type B POSITIVE B POSITIVE Antibody Screen NEGATIVE Blood Bank Comment Date/Time Procedure Status Source Growth 02/22/17 17:10 Gram Stain - Final Resulted Wound Foot 02/22/17 17:10 Wound Culture Resulted Wound Foot Pending 02/22/17 16:55 Aerobic Blood Culture - Preliminary Resulted Blood Peripheral NO GROWTH IN 1 DAY 02/22/17 16:55 Anaerobic Blood Culture - Preliminary Resulted Blood Peripheral NO GROWTH IN 1 DAY Result Diagram: 02/23/17 0158 02/23/17 0158 Imaging Last 48 hours Impressions Foot X-Ray 02/22/17 0000 Signed Impressions: Service Date/Time: Wednesday, February 22, 2017 17:46 - CONCLUSION: Soft tissues extensive soft tissue emphysema, mottled in appearance very concerning for infection with gas-forming organism. No obvious osseous destruction is seen to suggest osteomyelitis. Abhi Seo MD Assessment and Plan Problem List: (1) Gangrene Status: Acute Plan: Patient with florid wet gangrene of the right foot To OR today for surgery. INR elevated and receiving FFP (2) Sepsis Status: Acute Plan: ID consulted for recommendations (3) Acute on chronic kidney disease, stage 4 Status: Acute Plan: Nephrology consulted (4) Hypertension Status: Acute Plan: 126/70 continue current treatment (5) Tobacco abuse Status: Acute Plan: smoking cessation needed (6) Diabetes Status: Acute Plan: BS 73-96 will discontinue glipizide (7) Atrial fibrillation Status: Acute Plan: Telemetry ordered will monitor (8) Elevated INR Status: Acute Plan: FFP ordered and hematolgy consult pending. Assessment and Plan Assessment and plan discussed with Dr. Bird Problem Qualifiers (1) Sepsis: Qualified Code: A41.9 - Sepsis, due to unspecified organism Cherie Loyd Feb 23, 2017 12:04
[2017-02-23] MEDS ORDERED: BUPIVACAINE HCL PF 0.5% 10 ML VIAL NERV BLOCK ONE (12:41)
[2017-02-23] MEDS ORDERED: FAMOTIDINE 20 MG/2 ML VIAL ONE (14:25)
[2017-02-23] MEDS ORDERED: MIDAZOLAM HCL 2 MG/2 ML VIAL ONE (14:25)
[2017-02-23 14:27] LABS: INTERNATIONAL NORMALIZED RATIO 1.4 RATIO; PROTHROMBIN TIME - PATIENT 15.4 SEC (9.8-11.6)
[2017-02-23] MEDS ORDERED: KETAMINE HCL 500 MG/5 ML VIAL ONE (14:29)
[2017-02-23] MEDS ORDERED: PIPERACIL-TAZO 3.375 GM PREMIX 50 ML IV SCH ×2 (14:45→17:15)
--- NOTE | 2017-02-23 16:56 | PD.CONS ---
History of Present Illness Service Infectious disease Consult Requested By Dr Bird Reason for Consult Evaluate patient with sepsis Primary Care Physician Antoni Bird, DO Diagnoses: History of Present Illness Patient seen and examined. Records reviewed. Patient is a 71-year-old male, brought into the hospital for evaluation of his right foot. Per record he has had a wound on his right foot for years. It's unclear whether he follows up with the podiatry on a regular basis. Patient apparently has had significant pain and has been bedridden for months. There is no mention of any fever or chills. He was seen by a drain layer and had evidence of gangrene so the patient was told to go to the hospital for further surgical management. On presentation his WBC was above 30,000. He is afebrile. He had blood cultures and wound culture obtained. He was seen by surgery and was diagnosed to have an infected wet gangrene with evidence of sepsis. Patient went to surgery today, and had a right BKA, with plans of revision later in the week. His blood cultures are growing Proteus and gram- positive bacteria. Patient is being seen in the recovery room. Infectious disease consultation has been requested to assist with management of his sepsis. Review of Systems Constitutional: DENIES: Fever, Chills Eyes: DENIES: Eye pain Ears, nose, mouth, throat: DENIES: Nasal discharge, Oral lesions, Ear Pain, Sinus Pain Respiratory: DENIES: Cough, Shortness of breath Cardiovascular: DENIES: Chest pain, Palpitations Gastrointestinal: DENIES: Abdominal pain, Diarrhea, Nausea, Vomiting Genitourinary: DENIES: Dysuria Musculoskeletal: COMPLAINS OF: Joint pain Integumentary: DENIES: Rash Hematologic/lymphatic: DENIES: Lymphadenopathy Neurologic: DENIES: Headache Psychiatric: DENIES: Hallucinations Past Family Social History Allergies: Coded Allergies: No Known Allergies (Unverified , 01/11/17) Past Medical History AFIB Hyperlipidemia Diabetes GERD Hypertension Renal Failure Thyroid Disease Past Surgical History Previous tracheostomy AV fistula in the right upper extremity Active Ordered Medications [place] Tenormin Lipitor Clonidine Cardizem Insulin Synthroid Lopressor Zofran Protonix Zosyn Januvia Vancomycin Social History Smokes daily ETOH - 3-4 per day No drugs Lives with Physical Exam Vital Signs Vital Signs Date Time Temp Pulse Resp B/P Pulse Ox O2 Delivery O2 Flow Rate FiO2 02/23/17 14:08 98.9 78 18 141/74 93 02/23/17 12:00 97.9 75 18 147/70 95 02/23/17 10:58 98.2 76 17 126/70 98 02/23/17 09:15 97.8 78 18 135/73 96 02/23/17 08:00 97.3 76 18 137/70 97 02/23/17 04:00 98.0 71 20 128/66 97 02/23/17 00:00 97.7 68 20 114/58 100 02/22/17 20:04 98.9 82 16 136/68 97 02/22/17 20:00 97.4 71 20 112/67 97 02/22/17 19:51 97 02/22/17 19:00 81 16 141/63 97 Room Air 02/22/17 17:06 Room Air Physical Exam GENERAL: This is a well-nourished, well-developed male, awake and alert, in no apparent distress. SKIN: Cool and dry. No generalized rash, has some scattered ecchymosis in his upper extremities. HEAD: Atraumatic. Normocephalic. No temporal or scalp tenderness. EYES: Robinette conjunctivae. Pupils equal round and reactive. Extraocular motions intact. No scleral icterus. No injection or drainage. ENT: Nose without bleeding, or purulent drainage. Moist oral mucosa. Throat without erythema, or exudate. Uvula midline. Airway patent. NECK: Trachea midline. No JVD or lymphadenopathy. Supple, nontender, no meningeal signs. CARDIOVASCULAR: Regular rate and rhythm without murmurs, gallops, or rubs. RESPIRATORY: Clear to auscultation. Breath sounds equal bilaterally. No wheezes , rales, or rhonchi. GASTROINTESTINAL: Abdomen soft, non-tender, nondistended. No hepato-splenomegaly , or palpable masses. No guarding. MUSCULOSKELETAL: LLE without clubbing, cyanosis, or edema. No joint tenderness, effusion. S/P RBKA with dry dressing. Has dressing in his RUE, with some breakthrough blood in dressing. No calf tenderness on LLE NEUROLOGICAL: Awake and alert. Cranial nerves II through XII intact. Motor and sensory grossly within normal limits. Normal speech. PSYCH: Cooperative, but gets irritable very easily with questioning LINE: PIV with no evidence of infection Laboratory Laboratory Tests Test 02/22/17 02/22/17 02/22/17 02/23/17 16:55 17:04 18:54 01:58 White Blood Count 37.7 32.1 Red Blood Count 3.81 3.36 Hemoglobin 10.5 9.8 Hematocrit 33.3 29.5 Mean Corpuscular Volume 87.5 87.9 Mean Corpuscular Hemoglobin 27.7 29.1 Mean Corpuscular Hemoglobin 31.6 33.1 Concent Red Cell Distribution Width 15.2 15.4 Platelet Count 360 313 Mean Platelet Volume 9.7 9.6 Neutrophils (%) (Auto) 96.0 94.8 Lymphocytes (%) (Auto) 0.8 1.6 Monocytes (%) (Auto) 2.6 3.1 Eosinophils (%) (Auto) 0.0 0.0 Basophils (%) (Auto) 0.6 0.5 Neutrophils # (Auto) 36.1 30.4 Lymphocytes # (Auto) 0.3 0.5 Monocytes # (Auto) 1.0 1.0 Eosinophils # (Auto) 0.0 0.0 Basophils # (Auto) 0.2 0.2 CBC Comment AUTO DIFF AUTO DIFF Differential Total Cells 100 100 Counted Neutrophils % (Manual) 96 77 Band Neutrophils % 1 22 Lymphocytes % 2 1 Monocytes % 1 Neutrophils # (Manual) 36.6 31.8 Differential Comment FINAL DIFF FINAL DIFF MANUAL MANUAL Hypersegmented Polys 1+ Toxic Granulation 1+ 1+ Toxic Vacuolation PRESENT Dohle Bodies PRESENT PRESENT Platelet Estimate HIGH NORMAL Platelet Morphology Comment NORMAL NORMAL Red Cell Morphology Comment NORMAL Sodium Level 134 135 137 Potassium Level 3.8 4.0 3.5 Chloride Level 97 97 100 Carbon Dioxide Level 25.1 26.1 24.8 Anion Gap 12 12 12 Blood Urea Nitrogen 50 50 51 Creatinine 4.32 4.24 4.19 Estimat Glomerular Filtration 14 14 14 Rate Random Glucose 69 73 88 Calcium Level 8.7 8.4 8.1 Lactic Acid Level 2.0 Prothrombin Time GREATER THAN 180.0 Prothromb Time International GREATER THAN Ratio 14.5 Total Bilirubin 0.5 Aspartate Amino Transf 16 (AST/SGOT) Alanine Aminotransferase LESS THAN 6 (ALT/SGPT) Alkaline Phosphatase 185 Total Protein 6.0 Albumin 1.4 Test 02/23/17 02/23/17 02/23/17 04:26 04:30 14:08 Prothrombin Time GREATER THAN 15.4 180.0 Prothromb Time International GREATER THAN 1.4 Ratio 14.5 Blood Type B POSITIVE B POSITIVE Antibody Screen NEGATIVE Blood Bank Comment Date/Time Procedure Status Source Growth 02/22/17 17:10 Gram Stain - Final Resulted Wound Foot 02/22/17 17:10 Wound Culture - Preliminary Resulted Gram Negative Jama Gram Positive Cocci 02/22/17 16:55 Aerobic Blood Culture - Preliminary Resulted Blood Peripheral NO GROWTH IN 1 DAY 02/22/17 16:55 Anaerobic Blood Culture - Preliminary Resulted Blood Peripheral NO GROWTH IN 1 DAY 02/22/17 16:55 Aerobic Blood Culture Resulted Blood Peripheral Pending 02/22/17 16:55 Anaerobic Blood Culture - Preliminary Resulted Enterococcus Faecalis Proteus Species Result Diagram: 02/23/17 0158 02/23/17 0158 Imaging RADIOLOGY STUDIES/FILMS REVIEW Foot X-Ray 02/22/17 0000 Signed Impressions: Service Date/Time: Wednesday, February 22, 2017 17:46 - CONCLUSION: Soft tissues extensive soft tissue emphysema, mottled in appearance very concerning for infection with gas-forming organism. No obvious osseous destruction is seen to suggest osteomyelitis. Abhi Seo MD Assessment and Plan Assessment and Plan IMPRESSION Sepsis with proteus and Enterococcus due to wet gangrene R foot DFI, PVD with wet gangrene - S/P R BKA Renal failure RECOMMENDATION Repeat 2 BC Another dose of Vanco today and check level in AM Continue Zosyn Follow C/S and adjust Abx Monitor progress He will have definitive surgery on his RLE end of week I will determine course of Abx once work-up completed I will follow along with you Thank you for this consultation Discussed Condition With D/W Connie Junior MD Feb 23, 2017 16:56
[2017-02-23] MEDS ORDERED: VANCOMYCIN INJ 1,000 MG in SODIUM CHLOR 0.9% 250 ML INJ 250 ML IV ONE (17:00)
[2017-02-23] MEDS ORDERED: LEVOFLOXACIN 500 MG PREMIX INJ 100 ML IV ONE (17:15)
[2017-02-23 17:19] LABS: AUTOMATED NEUTROPHIL # 26.9 TH/MM3 (1.8-7.7); BASOPHIL % 0.1 % (0.0-2.0); EOSINOPHIL # 0.1 TH/MM3 (0-0.4); EOSINOPHIL % 0.4 % (0.0-4.0); HEMATOCRIT 25.1 % (39.0-51.0); HEMO FLAGS DIFF FINAL; LYMPH % 1.5 % (9.0-44.0); LYMPHOCYTE # 0.4 TH/MM3 (1.0-4.8); MEAN CELL VOLUME 87.6 FL (80.0-100.0); MEAN CORPUSCULAR HEMOGLOBIN 28.7 PG (27.0-34.0); MEAN CORPUSCULAR HGB CONC 32.8 % (32.0-36.0); MONO % 3.3 % (0.0-8.0); NEUT % 94.7 % (16.0-70.0); PLATELET COUNT 282 TH/MM3 (150-450); RED BLOOD COUNT 2.86 MIL/MM3 (4.50-5.90); RED CELL DISTRIBUTION WIDTH 15.5 % (11.6-17.2); WHITE BLOOD COUNT 28.4 TH/MM3 (4.0-11.0)
[2017-02-23] MEDS: PIPERACIL-TAZO 2.25 GM PREMIX 50 ML IV SCH (18:00)
[2017-02-24] VITALS (12 sets, daily range): BP systolic 111–143; BP diastolic 64–83; PULSE 70–108; RESP 14–22; TEMP 96–97.8; O2SAT 92–100
[2017-02-24] MEDS: PIPERACIL-TAZO 2.25 GM PREMIX 50 ML IV SCH ×3 (02:05→18:00)
[2017-02-24 05:25] LABS: AUTOMATED NEUTROPHIL # 15.1 TH/MM3 (1.8-7.7); BASOPHIL % 0.1 % (0.0-2.0); HEMATOCRIT 22.7 % (39.0-51.0); HEMO FLAGS DIFF FINAL; LYMPH % 1.8 % (9.0-44.0); LYMPHOCYTE # 0.3 TH/MM3 (1.0-4.8); MEAN CELL VOLUME 87.9 FL (80.0-100.0); MEAN CORPUSCULAR HEMOGLOBIN 28.7 PG (27.0-34.0); MEAN CORPUSCULAR HGB CONC 32.7 % (32.0-36.0); MONO % 4.6 % (0.0-8.0); NEUT % 93.5 % (16.0-70.0); PLATELET COUNT 269 TH/MM3 (150-450); RED BLOOD COUNT 2.59 MIL/MM3 (4.50-5.90); RED CELL DISTRIBUTION WIDTH 15.2 % (11.6-17.2); WHITE BLOOD COUNT 16.2 TH/MM3 (4.0-11.0)
[2017-02-24 05:38] LABS: BICARBONATE 27.7 MEQ/L (21.0-32.0); MAGNESIUM 1.9 MG/DL (1.5-2.5); POTASSIUM 3.5 MEQ/L (3.5-5.1)
[2017-02-24 05:39] LABS: ANION GAP 10 MEQ/L (5-15); BICARBONATE 27.1 MEQ/L (21.0-32.0); BLOOD UREA NITROGEN 52 MG/DL (7-18); CHLORIDE 99 MEQ/L (98-107); GLOMERULAR FILTRATION RATE 15 ML/MIN (>89); POTASSIUM 3.5 MEQ/L (3.5-5.1); SODIUM (NA) 136 MEQ/L (136-145)
[2017-02-24 05:43] LABS: FERRITIN 276 NG/ML (26-388); TRANSFERRIN IRON PROFILE 113 MG/DL (200-360)
[2017-02-24] MEDS: LEVOTHYROXINE SODIUM 100 MCG TAB PO SCH (05:58)
[2017-02-24] MEDS: LEVOTHYROXINE SODIUM 75 MCG TAB PO SCH (05:58)
--- NOTE | 2017-02-24 07:28 | HHI.PR ---
Subjective Remarks Patient is alert and cooperative. Pain well controlled. Denies any CP or SOB Objective Vital Signs Date Time Temp Pulse Resp B/P Pulse Ox O2 Delivery O2 Flow Rate FiO2 02/24/17 04:31 97.8 76 18 143/72 96 02/24/17 00:29 97.8 70 18 120/68 95 02/23/17 20:14 96.8 69 18 113/58 94 02/23/17 18:23 21 02/23/17 17:30 98.0 73 14 131/77 95 Nasal Cannula 2 02/23/17 17:15 75 12 134/75 95 02/23/17 17:00 76 14 136/76 99 02/23/17 16:45 74 12 137/73 98 02/23/17 16:30 72 12 140/79 97 02/23/17 16:15 72 12 141/92 97 Nasal Cannula 2 02/23/17 16:02 97.4 66 12 124/78 97 Simple Mask 6 02/23/17 14:08 98.9 78 18 141/74 93 02/23/17 12:00 97.9 75 18 147/70 95 02/23/17 10:58 98.2 76 17 126/70 98 02/23/17 09:15 97.8 78 18 135/73 96 02/23/17 08:00 97.3 76 18 137/70 97 I/O 02/23/17 02/23/17 02/23/17 02/24/17 02/24/17 02/24/17 07:00 15:00 23:00 07:00 15:00 23:00 Intake Total 0 ml 1147 ml 1231 ml 325 ml Output Total 100 ml 150 ml Balance -100 ml 997 ml 1231 ml 325 ml Intake Oral 0 ml 0 ml 360 ml 280 ml IV Total 371 ml 45 ml Other 1147 ml 500 ml Output Urine Total 100 ml 150 ml # Voids 2 2 # Bowel Movements 0 1 1 Result Diagram: 02/24/17 0405 02/24/17404 Medications and IVs Current Medications Medications (Trade) Dose Ordered Sig/Libia Route Start Time Stop Time Status Last Admin (NS Flush) 2 ml UNSCH PRN IV FLUSH 02/22/17 18:15 (NS Flush) 2 ml BID IV FLUSH 02/22/17 21:00 02/23/17 08:28 (Zofran Inj) 4 mg Q6H PRN IVP 02/22/17 18:15 (Narcan Inj) 0.4 mg UNSCH PRN IV 02/22/17 18:15 ([employer] 10-325 Mg) 1 tab Q4H PRN PO 02/22/17 18:15 (Tenormin) 100 mg BID PO 02/22/17 21:00 02/23/17 21:23 (Lipitor) 40 mg HS PO 02/22/17 21:00 02/23/17 21:23 (Catapres) 0.1 mg BID PO 02/22/17 21:00 02/23/17 21:23 (Cardizem Cd) 240 mg DAILY PO 02/23/17 09:00 02/23/17 08:28 (Januvia) 50 mg DAILY PO 02/23/17 09:00 02/23/17 08:28 (Sodium Bicarbonate) 650 mg TIDPC PO 02/22/17 18:30 02/23/17 18:35 (Protonix) 40 mg DAILY PO 02/23/17 09:00 02/23/17 08:28 (Synthroid) 100 mcg DAILY@06 PO 02/23/17 06:00 02/24/17 05:58 Levothyroxine Sodium 75 mcg 75 mcg DAILY@06 PO 02/23/17 06:00 02/24/17 05:58 Lactated Ringer's 1,000 ml @ 30 mls/hr Q24H PRN IV 02/23/17 11:00 02/26/17 10:59 Sodium Chloride 500 ml @ 30 mls/hr [id number] PRN IV 02/23/17 11:00 02/26/17 10:59 Piperacillin Sod/ Tazobactam Sod 50 ml @ 100 mls/hr Q8H IV 02/23/17 18:00 02/24/17 02:05 (Levaquin 250 Mg Premix Inj) 50 ml @ 100 mls/hr Q24H IV 02/24/17 18:00 Assessment and Plan Problem List: (1) Gangrene Status: Acute Plan: Patient with florid wet gangrene of the right foot To OR today for surgery. INR elevated and receiving FFP (2) Sepsis Status: Acute Plan: ID consulted for recommendations (3) Acute on chronic kidney disease, stage 4 Status: Acute Plan: Nephrology consulted (4) Hypertension Status: Acute Plan: 126/70 continue current treatment (5) Tobacco abuse Status: Acute Plan: smoking cessation needed (6) Diabetes Status: Acute Plan: BS 73-96 will discontinue glipizide (7) Atrial fibrillation Status: Acute Plan: Telemetry ordered will monitor (8) Elevated INR Status: Acute Plan: FFP ordered and hematolgy consult pending. Assessment and Plan Assessment and plan discussed with Dr. Bidr Problem Qualifiers (1) Sepsis: Qualified Code: A41.9 - Sepsis, due to unspecified organism Cherie Loyd Feb 24, 2017 07:28
[2017-02-24] MEDS ORDERED: diphenhydrAMINE HCL 25 MG CAP PO PRN (07:45)
[2017-02-24] MEDS: SODIUM CHLORIDE 0.9% FLUSH 10 ML FLUSH IV FLUSH SCH ×2 (07:45→20:54)
[2017-02-24] MEDS ORDERED: ACETAMINOPHEN 325 MG TAB PO PRN (07:45)
[2017-02-24] MEDS: ATENOLOL 100 MG TAB PO SCH ×2 (07:45→20:53)
[2017-02-24] MEDS: cloNIDine HCL 0.1 MG TAB PO SCH ×2 (07:45→20:53)
[2017-02-24] MEDS: PANTOPRAZOLE SOD 40 MG DELAYED RELEASE TAB PO SCH (07:45)
[2017-02-24] MEDS: DILTIAZEM-CD 240 MG CAP ER PO SCH (07:45)
[2017-02-24] MEDS: SODIUM BICARBONATE 650 MG TAB PO SCH ×4 (07:45→17:05)
[2017-02-24] MEDS ORDERED: SODIUM CHLOR 0.9% 250 ML INJ 250 ML IV ONE (07:45)
[2017-02-24] MEDS: HEPARIN SODIUM - SQ 10,000 UNITS/ML VIAL SQ SCH ×3 (08:46→21:00)
--- NOTE | 2017-02-24 09:16 | MB ---
cc: WILIAM RAJPUT MD HEMATOLOGY/ONCOLOGY CONSULTATION NOTE DATE OF CONSULTATION 02/24/2017 DATE OF 1945 REASON FOR CONSULTATION Supratherapeutic INR in a patient with sepsis secondary to gangrene. He had been on anticoagulation with what had otherwise been a steady dose of Warfarin. CHIEF COMPLAINT Mr. Zendejas reports having had progressive darkening and blistering of the right foot. 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 Mr. Zendejas reports also having had bleeding from skin tears on his arms. HISTORY OF PRESENT ILLNESS Mr. Zendejas is a very pleasant 71-year-old male of the [employer]. 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 Ms. Zendejas has a history of tobaccoism, he smoked many years about half a pack to one pack a day and he lives at home with his . Ms. Zendejas reports having a history of atrial fibrillation for which he has been on anticoagulation with Warfarin for over 10 years. He tells me his warfarin dose had been very steady at 2.5 mg daily six days a week and 2 mg one day a week. This helped maintain his INR at about 2.5. Dr. Bird, his primary care physician had primarily been managing his anticoagulation. In the weeks and days leading up to admission, the patient reports noting having increasing blistering and darkening of the right foot. He was seeing a middle school director for wound care. The wound acutely worsened and he was referred to the emergency department. The patient reports having felt weak and feverish as well and was noted to have oozing of blood from the skin. Upon presentation to the emergency department, in addition to being assessed to have gangrene of the right foot, the patient was noted to have an INR which was undetectable high (greater than 14.5. He was treated with FFP, as well as oral vitamin K. He was evaluated by two vascular surgeons both of them recommended amputation of the gangrenous right foot. He underwent a right [id number] amputation on 02/23/2017. There was no note made of extensive bleeding during surgery. The oncology service has been asked to see the patient for management of his elevated PT/INR. PAST MEDICAL HISTORY 1. Diabetes 2. Atrial fibrillation 3. Peripheral vascular disease 4. Tobaccoism 5. Agent orange exposure 6. Advanced stage chronic kidney failure 7. Hyperlipidemia 8. Gastroesophageal reflux disease 9. Hypertension 10. Hypothyroidism PAST SURGICAL HISTORY 1. Tracheostomy some years ago (the patient cannot recall why). 2. Wound care on his right foot. FAMILY HISTORY Mom lived to 95, father lived to 85. He denies knowledge of oncologic diagnoses in the family. ALLERGIES NO KNOWN DRUG ALLERGIES. SOCIAL HISTORY The patient lives at home with his . He has two adult children who are healthy. He was a former smoker. He worked with the [employer] in [employer]. He does have agent orange exposure. Additionally, alcohol [id number] drinks per day. CURRENT INPATIENT MEDICATIONS 1. Lactated Ringer's 2. Levofloxacin 250 mg IV q24h 3. Zosyn 2.25 grams IV q8h 4. Vancomycin 1000 mg IV x1 5. Hydrocodone/Acetaminophen 10/325 one tablet every four hours as needed for pain 6. Atenolol 100 mg p.o. b.i.d. 7. Atorvastatin 40 mg p.o. q.h.s. 8. Clonidine 0.1 mg p.o. b.i.d. 9. Diltiazem 240 mg p.o. daily 10. Regular insulin sliding scale per protocol 11. Levothyroxine 175 mcg p.o. daily 12. Zofran 4 mg IV q6h as needed for nausea and vomiting. 13. Pantoprazole 40 mcg p.o. daily 14. Januvia 50 mg p.o. daily 15. Sodium bicarbonate 650 mg p.o. t.i.d. REVIEW OF SYSTEMS A 13-point review of systems is obtained the following are the pertinent positives and negatives: CONSTITUTIONAL: Feverish feeling, weakness, fatigue, decreased appetite. HEENT: Denies headaches, blurry vision, difficulty swallowing or soreness of the throat. RESPIRATORY: Difficulty breathing, cough, hemoptysis. CARDIOVASCULAR: Denies angina-like chest pain, PND, orthopnea. GI: Denies nausea, vomiting, diarrhea hematochezia, melena. : Denies dysuria, hematuria, urinary incontinence. MUSCULOSKELETAL: Please see HPI; had gangrenous discoloration of the right foot. TEASELER: Denies any focal sensory or motor deficits. PHYSICAL EXAMINATION VITAL SIGNS: Temperature 97.8 degrees Fahrenheit, heart rate 76 beats minute, respiratory rate 18, blood pressure 143/72, O2 sat is 96% on room air. GENERAL PHYSICAL APPEARANCE: Mr. Zendejas is an elderly male, he is laying in bed, appears to be chronically ill and pale. He has somewhat of an anxious personality. HEENT: Head atraumatic, normocephalic, conjunctive are pale sclerae anicteric, EOMI, PERRLA, he has had a right-sided cataract surgery. Oral exam, no pharyngeal erythema. Poor dental hygiene. NECK: No palpable cervical or supraclavicular lymphadenopathy. RESPIRATORY: He had good air movement bilaterally. No added breath sounds. CARDIOVASCULAR: Irregular rhythm, S1-S2. No obvious murmurs, rubs or gallops. ABDOMEN: Protuberant belly, soft and nontender, nondistended, no palpable organ enlargement. EXTREMITIES: Lower extremity, right side he has had a [id number]-[id number]-rsem amputation. The surgical dressings are clean and without blood stains. The left lower extremity: He has scaling of the leg, atrophy of the muscles, no open wounds but a great of skin dryness. TEASELER: No obvious focal sensory or motor deficits. LABORATORY FINDINGS Blood work dated 02/24/2017: Sodium 136, potassium 3.5, chloride 99, bicarbonate 27, BUN 52, creatinine 4.08, EGFR 15, random glucose 172, calcium 8, phosphorus 4.3, serum iron level 21, TIBC 158, percent iron saturation 13.3, ferritin level 276. Albumin 1.4, total protein 6, alkaline phosphatase 185, total bilirubin 0.5, AST 16, ALT less than six. TSH is 0.03. CBC: WBC count 16.3, hemoglobin 7.4, hematocrit 22.7, platelet count 270, absolute neutrophil count 15. Coags dated 02/23/2017: INR greater than 14.5, PT greater than 180. Repeat blood work dated 02/23/2017 at 02:00 p.m.: INR 1.4, PT 15.4. IMAGING STUDIES Foot x-ray dated 02/22/2017: Soft tissue extensive emphysema mottled in appearance very concerning for infection with gas forming organisms. No obvious osseous destruction to suggest osteomyelitis. ASSESSMENT Mr. Zendejas is a 71-year-old male with a history of type 2 diabetes, peripheral arterial disease, hypertension, atrial fibrillation, chronic anticoagulation and chronic/near end-stage renal failure. 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 The patient had emphysematous changes of the skin indicating infection with a gas forming organisms. He was recommended emergent amputation (appropriately so). Due to the sepsis, he did have elevated PT-INR levels. It appears the effect of the Coumadin he had been on had been potentiated due to the sepsis. The oncology/hematology service has been asked to see the patient for management of anticoagulation. Acutely anticoagulation was appropriately managed with fresh-frozen plasma and oral vitamin K. He was able to tolerate a right [id number]-[id number] amputation on 02/23/2017 without reports of excessive bleeding. RECOMMENDATIONS Coagulopathy: His coagulopathy was secondary to consumption of coagulation factors and likely potentiation of the Coumadin effect due to his gangrene and sepsis. Because the sepsis is now resolving and also because of the interventions rendered including oral vitamin K, as well as FFP, his PT/INR are closer to normal. He will, however, require resumption of anticoagulation and that may be initiated at any time the surgeons feel comfortable with resuming this. I did review the patient's blood work and his platelet counts appear to be normal. His renal function is, however very poor. It may be reasonable to initiate him on heparin subcu at a dose of 5000 units q8h and should he tolerate this without difficulty, I would initiate him on warfarin with heparin infusion bridging. Anemia: Likely secondary to blood loss and acute blood loss compounded by renal failure and chronic illness. I will transfuse one unit packed red blood cells today. The hematology service will follow along with you. Please call us with further questions. MD FRANTZ Torres/YOKASTA /7:43 AM /8:46 AM
[2017-02-24 10:24] LABS: INTERNATIONAL NORMALIZED RATIO 3.6 RATIO
[2017-02-24] MEDS ORDERED: GLUCAGON 1 MG/ML VIAL OTHER PRN (11:45)
[2017-02-24] MEDS ORDERED: DEXTROSE 50% IN WATER 50 ML VIAL(D50) IV PUSH PRN (11:45)
--- NOTE | 2017-02-24 12:38 | MP ---
cc: JEOVANY ANDREWS MD DATE OF SURGERY 02/23/2017 PREOPERATIVE DIAGNOSES 1. Florid, wet gangrene of the right foot. 2. Diabetes mellitus. 3. Peripheral vascular disease ischemia. 4. Sepsis. 5. Hypocoagulable state. POSTOPERATIVE DIAGNOSES 1. Florid, wet gangrene of the right foot. 2. Diabetes mellitus. 3. Peripheral vascular disease ischemia. 4. Sepsis. 5. Hypocoagulable state. OPERATIVE PROCEDURE Right guillotine below-knee amputation. SURGEON MD Klever ANESTHESIA General. ESTIMATED BLOOD LOSS 50 cc. PROCEDURE The patient is prepped and draped in the usual fashion and the tourniquet inflated. Circumferential incision is made with a 10 blade in the lower third of the calf, deepened down with the cautery. The small vessels are ligated anterior, the tibial artery and vein ligated and divided. The tibia and fibula are now exposed and both are resected with oscillating saw and then the soft tissue is transected with the amputation knife and specimen removed. Meticulous hemostasis was obtained with 0 Vicryl stick ties and cautery, the stump washed out and dressing applied. The patient will return to the operating room about 48 hours from now above-knee amputation. This was first part of the two-part staging procedure. Jeovany VEGA/ARLINE /4:23 PM /12:31 PM
[2017-02-24] MEDS: INSULIN NovoLIN REGULAR SUPPLEMENTAL SCALE SQ SCH ×3 (12:52→21:00)
[2017-02-24] MEDS ORDERED: INSULIN HUMAN REGULAR 1,000 UNITS/10 ML VIAL SQ ONE (13:00)
[2017-02-24] MEDS ORDERED: FUROSEMIDE 40 MG/4 ML VIAL IV PUSH ONE (13:00)
--- NOTE | 2017-02-24 14:40 | HHI.IDPN ---
Subjective Subjective Remarks Notes reviewed Temps ok Pain under control WBC improving BC with Proteus and Enetrococcus Foot C/S GPC and GNR repeat BC negative Antibiotics Zosyn Vancomycin Lines PIV Past Medical History AFIB Hyperlipidemia Diabetes GERD Hypertension Renal Failure Thyroid Disease Past Surgical History Previous tracheostomy AV fistula in the right upper extremity Allergies: Coded Allergies: No Known Allergies (Unverified , 01/11/17) Objective . Vital Signs Date Time Temp Pulse Resp B/P Pulse Ox O2 Delivery O2 Flow Rate FiO2 02/24/17 13:58 96.9 76 14 111/64 100 02/24/17 13:41 96.7 79 16 126/72 99 02/24/17 12:00 96.5 76 18 142/82 96 02/24/17 10:05 97.7 84 16 137/69 98 02/24/17 09:43 97.1 80 16 127/75 97 02/24/17 09:02 92 21 02/24/17 08:00 96.1 77 17 140/76 97 02/24/17 04:31 97.8 76 18 143/72 96 02/24/17 00:29 97.8 70 18 120/68 95 02/23/17 20:14 96.8 69 18 113/58 94 02/23/17 18:23 21 02/23/17 17:30 98.0 73 14 131/77 95 Nasal Cannula 2 02/23/17 17:15 75 12 134/75 95 02/23/17 17:00 76 14 136/76 99 02/23/17 16:45 74 12 137/73 98 02/23/17 16:30 72 12 140/79 97 02/23/17 16:15 72 12 141/92 97 Nasal Cannula 2 02/23/17 16:02 97.4 66 12 124/78 97 Simple Mask 6 02/23/17 02/23/17 02/24/17 15:00 23:00 07:00 Intake Total 1147 ml 1231 ml 325 ml Output Total 150 ml Balance 997 ml 1231 ml 325 ml Intake Oral 0 ml 360 ml 280 ml IV Total 371 ml 45 ml Other 1147 ml 500 ml Output Urine Total 150 ml # Voids 2 2 # Bowel Movements 0 1 1 . Laboratory Tests Test 02/22/17 02/23/17 02/23/17 02/24/17 16:55 01:58 16:33 04:05 White Blood Count 37.7 TH/MM3 32.1 TH/MM3 28.4 TH/MM3 16.2 TH/MM3 Red Blood Count 3.81 MIL/MM3 3.36 MIL/MM3 2.86 MIL/MM3 2.59 MIL/MM3 Hemoglobin 10.5 GM/DL 9.8 GM/DL 8.2 GM/DL 7.4 GM/DL Hematocrit 33.3 % 29.5 % 25.1 % 22.7 % Mean Corpuscular Volume 87.5 FL 87.9 FL 87.6 FL 87.9 FL Mean Corpuscular Hemoglobin 27.7 PG 29.1 PG 28.7 PG 28.7 PG Mean Corpuscular Hemoglobin 31.6 % 33.1 % 32.8 % 32.7 % Concent Red Cell Distribution Width 15.2 % 15.4 % 15.5 % 15.2 % Platelet Count 360 TH/MM3 313 TH/MM3 282 TH/MM3 269 TH/MM3 Mean Platelet Volume 9.7 FL 9.6 FL 9.3 FL 9.3 FL Neutrophils (%) (Auto) 96.0 % 94.8 % 94.7 % 93.5 % Lymphocytes (%) (Auto) 0.8 % 1.6 % 1.5 % 1.8 % Monocytes (%) (Auto) 2.6 % 3.1 % 3.3 % 4.6 % Eosinophils (%) (Auto) 0.0 % 0.0 % 0.4 % 0.0 % Basophils (%) (Auto) 0.6 % 0.5 % 0.1 % 0.1 % Neutrophils # (Auto) 36.1 TH/MM3 30.4 TH/MM3 26.9 TH/MM3 15.1 TH/MM3 Lymphocytes # (Auto) 0.3 TH/MM3 0.5 TH/MM3 0.4 TH/MM3 0.3 TH/MM3 Monocytes # (Auto) 1.0 TH/MM3 1.0 TH/MM3 0.9 TH/MM3 0.8 TH/MM3 Eosinophils # (Auto) 0.0 TH/MM3 0.0 TH/MM3 0.1 TH/MM3 0.0 TH/MM3 Basophils # (Auto) 0.2 TH/MM3 0.2 TH/MM3 0.0 TH/MM3 0.0 TH/MM3 CBC Comment AUTO DIFF AUTO DIFF DIFF FINAL DIFF FINAL Differential Total Cells 100 100 Counted Neutrophils % (Manual) 96 % 77 % Band Neutrophils % 1 % 22 % Lymphocytes % 2 % 1 % Monocytes % 1 % Neutrophils # (Manual) 36.6 TH/MM3 31.8 TH/MM3 Differential Comment FINAL DIFF FINAL DIFF MANUAL MANUAL Hypersegmented Polys 1+ Toxic Granulation 1+ 1+ Toxic Vacuolation PRESENT Dohle Bodies PRESENT PRESENT Platelet Estimate HIGH NORMAL Platelet Morphology Comment NORMAL NORMAL Red Cell Morphology Comment NORMAL Laboratory Tests Test 02/22/17 02/22/17 02/22/17 02/23/17 16:55 17:04 18:54 01:58 Sodium Level 134 MEQ/L 135 MEQ/L 137 MEQ/L Potassium Level 3.8 MEQ/L 4.0 MEQ/L 3.5 MEQ/L Chloride Level 97 MEQ/L 97 MEQ/L 100 MEQ/L Carbon Dioxide Level 25.1 MEQ/L 26.1 MEQ/L 24.8 MEQ/L Anion Gap 12 MEQ/L 12 MEQ/L 12 MEQ/L Blood Urea Nitrogen 50 MG/DL 50 MG/DL 51 MG/DL Creatinine 4.32 MG/DL 4.24 MG/DL 4.19 MG/DL Estimat Glomerular Filtration 14 ML/MIN 14 ML/MIN 14 ML/MIN Rate Random Glucose 69 MG/DL 73 MG/DL 88 MG/DL Calcium Level 8.7 MG/DL 8.4 MG/DL 8.1 MG/DL Lactic Acid Level 2.0 mmol/L Total Bilirubin 0.5 MG/DL Aspartate Amino Transf 16 U/L (AST/SGOT) Alanine Aminotransferase LESS THAN 6 U/L (ALT/SGPT) Alkaline Phosphatase 185 U/L Total Protein 6.0 GM/DL Albumin 1.4 GM/DL Test 02/24/17 04:05 Sodium Level 136 MEQ/L Potassium Level 3.5 MEQ/L Chloride Level 99 MEQ/L Carbon Dioxide Level 27.1 MEQ/L Anion Gap 10 MEQ/L Blood Urea Nitrogen 52 MG/DL Creatinine 4.08 MG/DL Estimat Glomerular Filtration 15 ML/MIN Rate Random Glucose 172 MG/DL Calcium Level 8.0 MG/DL Phosphorus Level 4.3 MG/DL Magnesium Level 1.9 MG/DL Iron Level 21 MCG/DL Total Iron Binding Capacity 158 MCG/DL Percent Iron Saturation 13.3 % Ferritin 276 NG/ML Albumin 1.7 GM/DL 25-Hydroxy Vitamin D Total 25.0 ng/ML Thyroid Stimulating Hormone 0.320 uIU/ML 3rd Gen Microbiology Date/Time Procedure Status Source Growth 02/22/17 16:55 Aerobic Blood Culture - Preliminary Resulted Blood Peripheral NO GROWTH IN 2 DAYS 02/22/17 16:55 Anaerobic Blood Culture - Preliminary Resulted Gram Positive Cocci 02/22/17 16:55 Aerobic Blood Culture - Preliminary Resulted Blood Peripheral NO GROWTH IN 2 DAYS 02/22/17 16:55 Anaerobic Blood Culture - Preliminary Resulted Enterococcus Faecalis Proteus Species 02/22/17 17:10 Gram Stain - Final Resulted Wound Foot 02/22/17 17:10 Wound Culture - Preliminary Resulted Gram Negative Jama Gram Positive Cocci 02/24/17 04:05 Aerobic Blood Culture Received Blood Peripheral Pending 02/24/17 04:05 Anaerobic Blood Culture Received Blood Peripheral Pending 02/24/17 04:11 Aerobic Blood Culture Received Blood Peripheral Pending 02/24/17 04:11 Anaerobic Blood Culture Received Blood Peripheral Pending Imaging Last Impressions Foot X-Ray 02/22/17 0000 Signed Impressions: Service Date/Time: Wednesday, February 22, 2017 17:46 - CONCLUSION: Soft tissues extensive soft tissue emphysema, mottled in appearance very concerning for infection with gas-forming organism. No obvious osseous destruction is seen to suggest osteomyelitis. Abhi Seo MD Physical Exam GENERAL awake and alert, in no apparent distress. SKIN: Cool and dry. No generalized rash, has some scattered ecchymosis in his upper extremities. HEENT: Lenora conjunctivae. No scleral icterus. No injection or drainage. Moist oral mucosa. NECK: Supple, nontender, no meningeal signs. CARDIOVASCULAR: Regular rate and rhythm without murmurs, gallops, or rubs. RESPIRATORY: Clear to auscultation. Breath sounds equal bilaterally. No wheezes , rales, or rhonchi. GASTROINTESTINAL: Abdomen soft, non-tender, nondistended. No hepato-splenomegaly , or palpable masses. No guarding. MUSCULOSKELETAL: LLE without clubbing, cyanosis, or edema. No joint tenderness, effusion. S/P RBKA with dry dressing. Has dressing in his RUE. No calf tenderness on LLE NEUROLOGICAL: Awake and alert. Cranial nerves II through XII intact. Motor and sensory grossly within normal limits. Normal speech. PSYCH: Cooperative, but gets irritable very easily with questioning LINE: PIV with no evidence of infection Assessment & Plan Remarks IMPRESSION Sepsis with proteus and Enterococcus due to wet gangrene R foot DFI, PVD with wet gangrene - S/P R BKA Renal failure RECOMMENDATION Follow CBC Another dose of Vanco today and check level in AM Continue Zosyn Follow C/S and adjust Abx Monitor progress Connie Cerna MD Feb 24, 2017 14:40
[2017-02-24] MEDS ORDERED: VANCOMYCIN INJ 1,000 MG in SODIUM CHLOR 0.9% 250 ML INJ 250 ML IV ONE (15:00)
--- NOTE | 2017-02-24 16:56 | PD.CAR.PN ---
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 Thanks J 02/23/17 Appreciate 's evaluation and second opinion. Completely agree. Will take patient to OR for staged surgeries. BKA today, followed by AKA Tuesday or Tuesday. PT/INR consistent with coagulopathy and sepsis superimposed on Coumadintherapy Receiving FFP now Will give K centra if needed after FFP transfused. PT/INR at noon 02/24/17 Patient post staged R leg BK amputation for gangrene uf the foot and sepsis. Patient improved greatly since yesterday. For second stage surgery (R AKA) tomorrow. Agree with transfusion and will check PT/INR in am Objective: Vital Signs Date Time Temp Pulse Resp B/P Pulse Ox O2 Delivery O2 Flow Rate FiO2 02/24/17 13:58 96.9 76 14 111/64 100 02/24/17 13:41 96.7 79 16 126/72 99 02/24/17 12:00 96.5 76 18 142/82 96 02/24/17 10:05 97.7 84 16 137/69 98 02/24/17 09:43 97.1 80 16 127/75 97 02/24/17 09:02 92 21 02/24/17 08:00 96.1 77 17 140/76 97 02/24/17 04:31 97.8 76 18 143/72 96 02/24/17 00:29 97.8 70 18 120/68 95 02/23/17 20:14 96.8 69 18 113/58 94 02/23/17 18:23 21 02/23/17 17:30 98.0 73 14 131/77 95 Nasal Cannula 2 02/23/17 17:15 75 12 134/75 95 02/23/17 17:00 76 14 136/76 99 Labs: Laboratory Tests Test 02/24/17 02/24/17 02/24/17 07:44 09:44 11:46 Blood Type B POSITIVE Crossmatch Leukocyte-Reduced Leukocyte-Reduced Red Blood Red Blood Cells Cells Blood Bank Comment Prothrombin Time 42.0 SEC (9.8-11.6) Prothromb Time International 3.6 RATIO Ratio Result Diagram: 02/24/17 0405 02/24/17 0405 Jeovany Ernst MD Feb 24, 2017 16:56
[2017-02-24] MEDS: LEVOFLOXACIN 250 MG PREMIX INJ 50 ML IV SCH (17:01)
--- NOTE | 2017-02-24 17:04 | PD.CONS ---
HPI Consult Requested By Reason for Consult Chronic kidney disease. Primary Care Physician Antoni Bird, DO History of Present Illness This patient is a 71-year-old male with a history of long-standing diabetes mellitus and hypertension as well as chronic kidney disease approaching end- stage renal disease. Patient now admitted with wet gangrene right foot status post right BKA. Subsequently will have conversion to AKA. Patient did have an AV dialysis shunt placed in preparation for dialysis unfortunately access failed. Is on sodium bicarbonate chronically for metabolic acidosis. There has been concern regarding nutritional status recently. Review of Systems Constitutional: COMPLAINS OF: Fatigue, Change in appetite, DENIES: Diaphoretic episodes, Fever, Weight gain, Weight loss, Chills, Dizziness, Night Sweats Cardiovascular: DENIES: Chest pain, Palpitations, Syncope, Dyspnea on Exertion , PND, Lower Extremity Edema, Orthopnea, Claudication Gastrointestinal: DENIES: Abdominal pain, Black stools, Bloody stools, Constipation, Diarrhea, Nausea, Vomiting, Difficulty Swallowing, Anorexia Musculoskeletal: COMPLAINS OF: Joint pain (chronic.), DENIES: Muscle aches, Stiffness, Joint Swelling, Back pain Past Family Social History Allergies: Coded Allergies: No Known Allergies (Unverified , 01/11/17) Past Medical History Chronic kidney disease stage 4-5. Diabetic nephropathy Hypertension CHF Proteinuria Secondary hyperparathyroidism of renal disease. Vitamin D deficiency. Chronic metabolic acidosis secondary to CKD. Atrophic fibrillation COPD. Past Surgical History Surgery this admission for wet gangrene right foot. Placement of AV dialysis shunt which has failed. Reported Medications Reported Meds & Active Scripts Active Reported Clonidine (Clonidine HCl) 0.1 Mg Tab 0.1 Mg PO BID Sodium Bicarbonate 650 Mg Tab 650 Mg PO TIDPC Vitamin D (Cholecalciferol) 400 Unit Tab DAILY Atorvastatin (Atorvastatin Calcium) 40 Mg Tab 40 Mg PO HS Atenolol 100 Mg Tab 100 Mg PO BID Januvia (Sitagliptin Phosphate) 50 Mg Tab 50 Mg PO DAILY Diltiazem CD 24 HR 240 Mg Caper 240 Mg PO DAILY Levothyroxine (Levothyroxine Sodium) 175 Mcg Tab 175 Mcg PO DAILY Nexium (Esomeprazole DR) 40 Mg Capdr 40 Mg PO DAILY Active Ordered Medications Current Medications Vancomycin HCl 1000 mg/Sodium Chloride 250 ml @ 250 mls/hr ONCE STAT IV Last administered on 02/22/17t 18:39; Start 02/22/17 at 16:24; Stop 02/22/17 at 17:23 ; Status DC Piperacillin Sod/ Tazobactam Sod (Zosyn 4.5 Gm Premix) 100 ml @ 200 mls/hr ONCE STAT IV Last administered on 02/22/17 17:55; Start 02/22/17 at 16:24; Stop 02/22/17 at 16:53; Status DC Sodium Chloride (NS Flush) 2 ml UNSCH PRN IV FLUSH FLUSH AFTER USING IV ACCESS ; Start 02/22/17 at 18:15 Sodium Chloride (NS Flush) 2 ml BID IV FLUSH Last administered on 02/24/17 07: 45; Start 02/22/17 at 21:00 Ondansetron HCl (Zofran Inj) 4 mg Q6H PRN IVP NAUSEA OR VOMITING; Start at 18:15 Naloxone HCl (Narcan Inj) 0.4 mg UNSCH PRN IV SEE LABEL COMMENTS; Start at 18:15 Acetaminophen/ Hydrocodone Bitart (Grove 10-325 Mg) 1 tab Q4H PRN PO PAIN SCALE 1 TO 7; Start 02/22/17 at 18:15 Atenolol (Tenormin) 100 mg BID PO Last administered on 02/24/17 07:45; Start 02/22/17 at 21:00 Atorvastatin Calcium (Lipitor) 40 mg HS PO Last administered on 02/23/17 21:23 ; Start 02/22/17 at 21:00 Clonidine (Catapres) 0.1 mg BID PO Last administered on 02/24/17 07:45; Start 02/22/17 at 21:00 Diltiazem HCl (Cardizem Cd) 240 mg DAILY PO Last administered on 02/24/17 07: 45; Start 02/23/17 at 09:00 Furosemide (Lasix) 40 mg DAILY PO Last administered on 02/23/17 08:28; Start 02/23/17 at 09:00; Stop 02/23/17 at 12:07; Status DC Glipizide (Glucotrol) 5 mg DAILYAC PO Last administered on 02/23/17 08:28; Start 02/23/17 at 08:00; Stop 02/23/17 at 12:07; Status DC Sitagliptin Phosphate (Januvia) 50 mg DAILY PO Last administered on 02/24/17 07:45; Start 02/23/17 at 09:00 Sodium Bicarbonate (Sodium Bicarbonate) 650 mg TIDPC PO Last administered on 12:53; Start 02/22/17 at 18:30 Pantoprazole Sodium (Protonix) 40 mg DAILY PO Last administered on 02/24/17 07 :45; Start 02/23/17 at 09:00 Levothyroxine Sodium (Synthroid) 100 mcg DAILY@06 PO Last administered on 05:58; Start 02/23/17 at 06:00 Levothyroxine Sodium (Synthroid) 75 mcg DAILY@06 PO Last administered on 05:58; Start 02/23/17 at 06:00 Phytonadione 5 mg 5 mg ONCE STAT PO Last administered on 02/23/17 08:28; Start 02/23/17 at 07:22; Stop 02/23/17 at 07:25; Status DC Lactated Ringer's 1,000 ml @ 30 mls/hr Q24H PRN IV SEE LABEL COMMENTS; Start at 11:00; Stop 02/26/17 at 10:59 Sodium Chloride (NS 500 ml Inj) 500 ml @ 30 mls/hr [id number] PRN IV SEE LABEL COMMENTS; Start 02/23/17 at 11:00; Stop 02/26/17 at 10:59 Metoprolol Tartrate (Lopressor) 25 mg PUBLIC SERVICE REPRESENTATIVE PRN PO SEE LABEL COMMENTS; Start 02/23/17 at 11:00; Stop 02/26/17 at 10:59 Povidone Iodine (Betadine 5% Antisepsis Kit) 1 applic PUBLIC SERVICE REPRESENTATIVE PRN EACH NARE SEE LABEL COMMENTS; Start 02/23/17 at 11:00; Stop 02/26/17 at 10:59 Chlorhexidine Gluconate (Chlorhexidine 2% Cloth) 3 pack PUBLIC SERVICE REPRESENTATIVE PRN TOPICAL SEE LABEL COMMENTS; Start 02/23/17 at 11:00; Stop 02/26/17 at 10:59 Insulin Human Regular (NovoLIN R INJ) See Protocol Table ... PUBLIC SERVICE REPRESENTATIVE PRN SQ SEE PROTOCOL TABLE; Start 02/23/17 at 11:00; Stop 02/26/17 at 10:59 Midazolam HCl (Versed Inj) 2 mg STK-MED ONCE .ROUTE Last administered on 14:42; Start 02/23/17 at 14:25; Stop 02/23/17 at 14:26; Status DC Famotidine (Pepcid Inj) 20 mg STK-MED ONCE .ROUTE Last administered on 14:32; Start 02/23/17 at 14:25; Stop 02/23/17 at 14:26; Status DC Ketamine HCl 500 mg 500 mg STK-MED ONCE .ROUTE ; Start 02/23/17 at 14:29; Stop 02/23/17 at 14:30; Status DC Piperacillin Sod/ Tazobactam Sod 50 ml @ 100 mls/hr PUBLIC SERVICE REPRESENTATIVE IV ; Start at 14:45; Stop 02/23/17 at 23:59; Status DC Vancomycin HCl 1000 mg/Sodium Chloride 250 ml @ 250 mls/hr ONCE ONCE IV Last administered on 02/23/17 18:33; Start 02/23/17 at 17:00; Stop 02/23/17 at 17:59 ; Status DC Piperacillin Sod/ Tazobactam Sod 50 ml @ 100 mls/hr Q8H IV Last administered on 02/24/17 08:46; Start 02/23/17 at 18:00 Levofloxacin/ Dextrose 100 ml @ 100 mls/hr ONCE ONCE IV Last administered on 02/23/17 18:35; Start 02/23/17 at 17:15; Stop 02/23/17 at 18:14; Status DC Piperacillin Sod/ Tazobactam Sod 50 ml @ 100 mls/hr Q8H IV ; Start 02/23/17 at 17:15; Stop 02/23/17 at 17:24; Status DC Levofloxacin/ Dextrose (Levaquin 250 Mg Premix Inj) 50 ml @ 100 mls/hr Q24H IV ; Start 02/24/17 at 18:00 Heparin Sodium (Porcine) 5000 units 5,000 units Q12HR SQ Last administered on 08:46; Start 02/24/17 at 09:00 Sodium Chloride (NS 250 ml Inj) 250 ml @ 15 mls/hr ONCE ONCE IV Last administered on 02/24/17 08:46; Start 02/24/17 at 07:45; Stop 02/25/17 at 00:24 Acetaminophen (Tylenol) 650 mg Q4H PRN PO SEE LABEL COMMENTS; Start 02/24/17 at 07:45; Stop 02/24/17 at 11:46; Status DC Diphenhydramine HCl (Benadryl) 25 mg Q4H PRN PO SEE LABEL COMMENTS Last administered on 02/24/17 08:46; Start 02/24/17 at 07:45; Stop 02/24/17 at 11:46 ; Status DC Dextrose (D50w (Vial) Inj) 25 ml UNSCH PRN IV PUSH HYPOGLYCEMIA-SEE COMMENTS; Start 02/24/17 at 11:45 Glucagon (Glucagon Inj) 1 mg UNSCH PRN OTHER HYPOGLYCEMIA-SEE COMMENTS; Start 02/24/17 at 11:45 Insulin Human Regular (NovoLIN R SUPPLEMENTAL SCALE) 1 ACHS SLIDING SCALE SQ ; Start 02/24/17 at 16:00 Cholecalciferol (Vitamin D3) 5,000 units DAILY PO ; Start 02/25/17 at 09:00 Furosemide (Lasix Inj) 40 mg ONCE ONCE IV PUSH Last administered on 02/24/17 12:53; Start 02/24/17 at 13:00; Stop 02/24/17 at 13:01; Status DC Bupivacaine HCl (Marcaine Pf 0.5% Inj) 30 ml STK-MED ONCE NERV BLOCK ; Start 10/30 at 12:41; Stop 02/24/17 at 12:41; Status DC Insulin Human Regular 7 units 7 units NOW ONCE SQ Last administered on 13:01; Start 02/24/17 at 13:00; Stop 02/24/17 at 13:01; Status DC Vancomycin HCl/ Sodium Chloride (Vancomycin Inj/ NS 250 ml Inj) 250 ml @ 250 mls/hr ONCE ONCE IV ; Start 02/24/17 at 15:00; Stop 02/24/17 at 15:59; Status DC Family History Noncontributory to current complaint. Social History History of tobacco use as well as alcohol use. Amount not specified. Physical Exam Vital Signs Vital Signs Date Time Temp Pulse Resp B/P Pulse Ox O2 Delivery O2 Flow Rate FiO2 02/24/17 13:58 96.9 76 14 111/64 100 02/24/17 13:41 96.7 79 16 126/72 99 4/13/17 12:00 96.5 76 18 142/82 96 02/24/17 10:05 97.7 84 16 137/69 98 02/24/17 09:43 97.1 80 16 127/75 97 02/24/17 09:02 92 21 02/24/17 08:00 96.1 77 17 140/76 97 02/24/17 04:31 97.8 76 18 143/72 96 02/24/17 00:29 97.8 70 18 120/68 95 02/23/17 20:14 96.8 69 18 113/58 94 02/23/17 18:23 21 02/23/17 17:30 98.0 73 14 131/77 95 Nasal Cannula 2 02/23/17 17:15 75 12 134/75 95 02/23/17 17:00 76 14 136/76 99 Physical Exam GENERAL: Patient not in respiratory distress. Responding to questions appropriately. SKIN: Warm and dry. HEAD: Normocephalic. EYES: No scleral icterus. No injection or drainage. NECK: Supple, trachea midline. No JVD or lymphadenopathy. CARDIOVASCULAR: Regular rate and rhythm without murmurs, gallops, or rubs. RESPIRATORY: Breath sounds equal bilaterally. No accessory muscle use. GASTROINTESTINAL: Abdomen soft, non-tender, nondistended. MUSCULOSKELETAL: No cyanosis, or edema. Status post right BKA. BACK: Nontender without obvious deformity. No CVA tenderness. Laboratory Laboratory Tests Test 02/24/17 02/24/17 02/24/17 02/24/17 04:05 07:44 09:44 11:46 White Blood Count 16.2 Red Blood Count 2.59 Hemoglobin 7.4 Hematocrit 22.7 Mean Corpuscular Volume 87.9 Mean Corpuscular Hemoglobin 28.7 Mean Corpuscular Hemoglobin 32.7 Concent Red Cell Distribution Width 15.2 Platelet Count 269 Mean Platelet Volume 9.3 Neutrophils (%) (Auto) 93.5 Lymphocytes (%) (Auto) 1.8 Monocytes (%) (Auto) 4.6 Eosinophils (%) (Auto) 0.0 Basophils (%) (Auto) 0.1 Neutrophils # (Auto) 15.1 Lymphocytes # (Auto) 0.3 Monocytes # (Auto) 0.8 Eosinophils # (Auto) 0.0 Basophils # (Auto) 0.0 CBC Comment DIFF FINAL Differential Comment Sodium Level 136 Potassium Level 3.5 Chloride Level 99 Carbon Dioxide Level 27.1 Anion Gap 10 Blood Urea Nitrogen 52 Creatinine 4.08 Estimat Glomerular Filtration 15 Rate Random Glucose 172 Calcium Level 8.0 Phosphorus Level 4.3 Magnesium Level 1.9 Iron Level 21 Total Iron Binding Capacity 158 Percent Iron Saturation 13.3 Ferritin 276 Albumin 1.7 25-Hydroxy Vitamin D Total 25.0 Thyroid Stimulating Hormone 0.320 3rd Gen Random Vancomycin Level 18.3 Blood Type B POSITIVE Crossmatch Leukocyte-Reduced Leukocyte-Reduced Red Blood Red Blood Cells Cells Blood Bank Comment Prothrombin Time 42.0 Prothromb Time International 3.6 Ratio Date/Time Procedure Status Source Growth 02/24/17 04:11 Aerobic Blood Culture Received Blood Peripheral Pending 02/24/17 04:11 Anaerobic Blood Culture Received Blood Peripheral Pending 02/22/17 17:10 Gram Stain - Final Resulted Wound Foot 02/22/17 17:10 Wound Culture - Preliminary Resulted Proteus Mirabilis Enterococcus Faecalis Gram Negative Jama 02/22/17 16:55 Aerobic Blood Culture - Preliminary Resulted Blood Peripheral NO GROWTH IN 2 DAYS 02/22/17 16:55 Anaerobic Blood Culture - Preliminary Resulted Gram Positive Cocci Result Diagram: 02/24/17 0405 02/24/17 0405 Assessment and Plan Problem List: (1) CKD (chronic kidney disease) stage 4, GFR 15-29 ml/min Plan: Which is approaching end-stage renal disease. Currently however no immediate indication to initiate dialysis but the patient is at significant risk for worsening and dialysis may have to be initiated this admission depending upon progress. Unfortunately AV dialysis shunt failed and if dialysis is required he will need placement of a hemodialysis PermCath. Discussed the above with his , patient and also I was requested to contact his daughter Iris in [place] [phone] and I discussed patient's current status with her including necessity for dialysis in the not too distant future. (2) Metabolic acidosis Plan: Currently compensated. Continue oral sodium bicarbonate. (3) Hyperkalemia Plan: History of hyperkalemia in the past but not presently. (4) Dialysis AV fistula malfunction (5) Vitamin D deficiency Plan: Vitamin D as ordered. (6) Malnutrition Plan: Agree with nutritional supplementation and patient was encouraged to improve his dietary protein intake. (7) Diabetes Plan: Management per primary care physician. (8) Hypertension Plan: Continue to monitor. Jeremiah Hagan MD Feb 24, 2017 17:04
[2017-02-24] MEDS: ATORVASTATIN 40 MG TAB PO SCH (20:53)
[2017-02-24] MEDS: LOPERAMIDE HCL 2 MG CAP PO PRN (20:54)
[2017-02-25] VITALS (10 sets, daily range): BP systolic 155–181; BP diastolic 80–94; PULSE 70–90; RESP 16–22; TEMP 95.3–97.8; O2SAT 94–99
[2017-02-25] MEDS: PIPERACIL-TAZO 2.25 GM PREMIX 50 ML IV SCH ×3 (02:29→17:02)
[2017-02-25 05:44] LABS: BASOPHIL % 0.2 % (0.0-2.0); EOSINOPHIL # 0.1 TH/MM3 (0-0.4); EOSINOPHIL % 0.4 % (0.0-4.0); HEMATOCRIT 30.4 % (39.0-51.0); HEMO FLAGS DIFF FINAL; LYMPH % 4.1 % (9.0-44.0); LYMPHOCYTE # 0.6 TH/MM3 (1.0-4.8); MEAN CELL VOLUME 87.3 FL (80.0-100.0); MEAN CORPUSCULAR HEMOGLOBIN 28.7 PG (27.0-34.0); MEAN CORPUSCULAR HGB CONC 32.8 % (32.0-36.0); MONO % 5.1 % (0.0-8.0); NEUT % 90.2 % (16.0-70.0); PLATELET COUNT 283 TH/MM3 (150-450); RED BLOOD COUNT 3.48 MIL/MM3 (4.50-5.90); RED CELL DISTRIBUTION WIDTH 15.6 % (11.6-17.2); WHITE BLOOD COUNT 15.5 TH/MM3 (4.0-11.0)
[2017-02-25] MEDS: LEVOTHYROXINE SODIUM 75 MCG TAB PO SCH (05:48)
[2017-02-25] MEDS: LEVOTHYROXINE SODIUM 100 MCG TAB PO SCH (05:48)
[2017-02-25 05:59] LABS: INTERNATIONAL NORMALIZED RATIO 3.9 RATIO; PROTHROMBIN TIME - PATIENT 45.5 SEC (9.8-11.6)
[2017-02-25] MEDS: INSULIN NovoLIN REGULAR SUPPLEMENTAL SCALE SQ SCH ×4 (06:11→21:00)
[2017-02-25 06:13] LABS: ALT (GPT) 11 U/L (12-78); ANION GAP 10 MEQ/L (5-15); AST (GOT) 26 U/L (15-37); BICARBONATE 26.8 MEQ/L (21.0-32.0); BLOOD UREA NITROGEN 55 MG/DL (7-18); CHLORIDE 101 MEQ/L (98-107); GLOMERULAR FILTRATION RATE 15 ML/MIN (>89); MAGNESIUM 1.9 MG/DL (1.5-2.5); POTASSIUM 3.5 MEQ/L (3.5-5.1); SODIUM (NA) 138 MEQ/L (136-145)
[2017-02-25 06:15] LABS: ALKALINE PHOSPHATASE 176 U/L (45-117); TOTAL BILIRUBIN ADULT 0.5 MG/DL (0.2-1.0)
[2017-02-25] MEDS: DILTIAZEM-CD 240 MG CAP ER PO SCH (08:18)
[2017-02-25] MEDS: ATENOLOL 100 MG TAB PO SCH ×2 (08:19→21:28)
[2017-02-25] MEDS: cloNIDine HCL 0.1 MG TAB PO SCH ×2 (08:19→21:28)
[2017-02-25] MEDS: FUROSEMIDE 40 MG TAB PO SCH (08:19)
[2017-02-25] MEDS: CHOLECALCIFEROL (VIT D3) 5000 UNIT CAP PO SCH (08:19)
[2017-02-25] MEDS: PANTOPRAZOLE SOD 40 MG DELAYED RELEASE TAB PO SCH (08:19)
[2017-02-25] MEDS: HEPARIN SODIUM - SQ 10,000 UNITS/ML VIAL SQ SCH ×2 (08:20→21:00)
[2017-02-25] MEDS: SODIUM CHLORIDE 0.9% FLUSH 10 ML FLUSH IV FLUSH SCH ×2 (08:20→21:29)
[2017-02-25] MEDS: SODIUM BICARBONATE 650 MG TAB PO SCH ×3 (08:23→17:07)
--- NOTE | 2017-02-25 10:11 | PD.ONC.PN ---
Subjective Subjective Remarks Afebrile overnight. Patient wanting to know when he is going for surgery. Per nurse, above the knee amputation is planned for late this morning. Objective Data Date Time Temp Pulse Resp B/P Pulse Ox O2 Delivery O2 Flow Rate FiO2 02/25/17 09:43 96.9 80 20 167/94 94 02/25/17 09:33 96.4 89 18 155/93 96 02/25/17 09:06 95.3 80 20 160/91 95 02/25/17 08:55 97.8 90 18 167/89 96 02/25/17 08:48 97.8 90 18 167/89 96 02/25/17 08:00 97.3 83 18 181/90 95 02/25/17 04:14 82 155/82 02/25/17 04:00 96.2 81 20 178/83 94 02/25/17 00:00 96.3 70 22 158/80 97 02/24/17 22:00 77 02/24/17 20:00 97.2 85 22 128/79 97 02/24/17 16:00 96.5 108 18 124/83 97 02/24/17 13:58 96.9 76 14 111/64 100 02/24/17 13:41 96.7 79 16 126/72 99 02/24/17 12:00 96.5 76 18 142/82 96 02/24/17 10:05 97.7 84 16 137/69 98 02/25/17 02/25/17 02/25/17 07:00 15:00 23:00 Intake Total 550 ml 0 ml Output Total 150 ml Balance 400 ml 0 ml Result Diagram: 02/25/17 0437 02/25/17 0437 Laboratory Results Laboratory Tests Test 02/24/17 02/25/17 02/25/17 11:46 04:37 07:41 Crossmatch Leukocyte-Reduced Red Blood Cells Blood Bank Comment White Blood Count 15.5 TH/MM3 Red Blood Count 3.48 MIL/MM3 Hemoglobin 10.0 GM/DL Hematocrit 30.4 % Mean Corpuscular Volume 87.3 FL Mean Corpuscular Hemoglobin 28.7 PG Mean Corpuscular Hemoglobin 32.8 % Concent Red Cell Distribution Width 15.6 % Platelet Count 283 TH/MM3 Mean Platelet Volume 9.2 FL Neutrophils (%) (Auto) 90.2 % Lymphocytes (%) (Auto) 4.1 % Monocytes (%) (Auto) 5.1 % Eosinophils (%) (Auto) 0.4 % Basophils (%) (Auto) 0.2 % Neutrophils # (Auto) 14.0 TH/MM3 Lymphocytes # (Auto) 0.6 TH/MM3 Monocytes # (Auto) 0.8 TH/MM3 Eosinophils # (Auto) 0.1 TH/MM3 Basophils # (Auto) 0.0 TH/MM3 CBC Comment DIFF FINAL Differential Comment Prothrombin Time 45.5 SEC Prothromb Time International 3.9 RATIO Ratio Sodium Level 138 MEQ/L Potassium Level 3.5 MEQ/L Chloride Level 101 MEQ/L Carbon Dioxide Level 26.8 MEQ/L Anion Gap 10 MEQ/L Blood Urea Nitrogen 55 MG/DL Creatinine 3.98 MG/DL Estimat Glomerular Filtration 15 ML/MIN Rate Random Glucose 123 MG/DL Calcium Level 8.2 MG/DL Magnesium Level 1.9 MG/DL Total Bilirubin 0.5 MG/DL Aspartate Amino Transf 26 U/L (AST/SGOT) Alanine Aminotransferase 11 U/L (ALT/SGPT) Alkaline Phosphatase 176 U/L Total Protein 6.3 GM/DL Albumin 1.7 GM/DL Random Vancomycin Level 26.4 COMMENT Culture Results Microbiology Date/Time Procedure Status Source Growth 02/22/17 16:55 Aerobic Blood Culture - Preliminary Resulted Blood Peripheral NO GROWTH IN 2 DAYS 02/22/17 16:55 Anaerobic Blood Culture - Preliminary Resulted Gram Positive Cocci 02/22/17 16:55 Aerobic Blood Culture - Preliminary Resulted Blood Peripheral NO GROWTH IN 2 DAYS 02/22/17 16:55 Anaerobic Blood Culture - Preliminary Resulted Enterococcus Faecalis Proteus Mirabilis 02/22/17 17:10 Gram Stain - Final Complete Wound Foot 02/22/17 17:10 Wound Culture - Final Complete Proteus Mirabilis Enterococcus Faecalis Pseudomonas Aeruginosa 02/24/17 04:05 Aerobic Blood Culture Received Blood Peripheral Pending 02/24/17 04:05 Anaerobic Blood Culture Received Blood Peripheral Pending 02/24/17 04:11 Aerobic Blood Culture Received Blood Peripheral Pending 02/24/17 04:11 Anaerobic Blood Culture Received Blood Peripheral Pending Administered Medications Medications (Trade) Dose Ordered Sig/Libia Route PRN Reason Start Time Stop Time Status Last Admin Dose Admin Sodium Chloride (NS Flush) 2 ml BID IV FLUSH 02/22/17 21:00 02/25/17 08:20 Atenolol (Tenormin) 100 mg BID PO 02/22/17 21:00 02/25/17 08:19 Atorvastatin Calcium (Lipitor) 40 mg HS PO 02/22/17 21:00 02/24/17 20:53 Clonidine (Catapres) 0.1 mg BID PO 02/22/17 21:00 02/25/17 08:19 Diltiazem HCl (Cardizem Cd) 240 mg DAILY PO 02/23/17 09:00 02/25/17 08:18 Sitagliptin Phosphate (Januvia) 50 mg DAILY PO 02/23/17 09:00 02/25/17 08:19 Sodium Bicarbonate (Sodium Bicarbonate) 650 mg TIDPC PO 02/22/17 18:30 02/25/17 08:23 Pantoprazole Sodium (Protonix) 40 mg DAILY PO 02/23/17 09:00 02/25/17 08:19 Levothyroxine Sodium (Synthroid) 100 mcg DAILY@06 PO 02/23/17 06:00 02/25/17 05:48 Levothyroxine Sodium 75 mcg 75 mcg DAILY@06 PO 02/23/17 06:00 02/25/17 05:48 Piperacillin Sod/ Tazobactam Sod 50 ml @ 100 mls/hr Q8H IV 02/23/17 18:00 02/25/17 08:18 Levofloxacin/ Dextrose (Levaquin 250 Mg Premix Inj) 50 ml @ 100 mls/hr Q24H IV 02/24/17 18:00 02/24/17 17:01 Heparin Sodium (Porcine) (Heparin Inj) 5,000 units Q12HR SQ 02/24/17 09:00 02/24/17 08:46 Cholecalciferol (Vitamin D3) 5,000 units DAILY PO 02/25/17 09:00 02/25/17 08:19 Loperamide HCl (Imodium) 2 mg Q6H PRN PO DIARRHEA 02/24/17 20:30 02/24/17 20:54 Furosemide (Lasix) 40 mg DAILY PO 02/25/17 09:00 02/25/17 08:19 Objective Remarks GENERAL: Elderly chronically ill appearing male, lying in bed, appears frustrated and irritable. SKIN: Warm and dry. skin is dry and thin. multiple bandages on left forearm with spots of dried blood on them HEAD: Atraumatic. Normocephalic. EYES: No injection or drainage. ENT: No nasal bleeding or discharge. Mucous membranes pink and moist. NECK: Trachea midline. CARDIOVASCULAR: IRR RESPIRATORY: diminished at bases, occasional rhonchi. GASTROINTESTINAL: Abdomen soft, non-tender, nondistended. 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 there is a bandage over the stump which is foul smelling NEUROLOGICAL: Awake and alert. Normal speech. Assessment/Plan Problem List: (1) Anemia Status: Acute Plan: -- Likely secondary to acute blood loss compounded by renal failure and chronic illness. --transfuse as needed (2) Coagulopathy Status: Acute Plan: --secondary to consumption of coagulation factors and likely potentiation of the Coumadin effect due to his gangrene and sepsis. Assessment 71y/o male with supratherapeutic INR in a patient with sepsis secondary to gangrene. --history of atrial fibrillation --has been on Warfarin >10 years. 2.5 mg daily six days a week and 2 mg one day a week. This helped maintain his INR at about 2.5. 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 h/o Diabetes Peripheral vascular disease tobaccoism Agent orange exposure Advanced stage chronic kidney failure Hyperlipidemia Gastroesophageal reflux disease Hypertension Hypothyroidism Plan 1. start vitamin K 2.5mg PO daily x 3 doses 2. agree with FFP prior to surgery 3. monitor CBC Attending Statement The exam, history, and the medical decision-making described in the above note were completed with the assistance of the mid-level provider. I reviewed and agree with the findings presented. I attest that I had a [id number] encounter with the patient on the same day, and personally performed and documented my assessment and findings in the medical record. Charo Medellin Feb 25, 2017 10:11 Jonathan Blue MD Feb 26, 2017 10:50
--- NOTE | 2017-02-25 10:30 | HHI.PR ---
Subjective Remarks Patient is alert and oriented. Pain well controlled. Denies any CP or SOB. Surgery scheduled for today. Objective Vital Signs Date Time Temp Pulse Resp B/P Pulse Ox O2 Delivery O2 Flow Rate FiO2 02/25/17 09:43 96.9 80 20 167/94 94 02/25/17 09:33 96.4 89 18 155/93 96 02/25/17 09:06 95.3 80 20 160/91 95 02/25/17 08:55 97.8 90 18 167/89 96 02/25/17 08:48 97.8 90 18 167/89 96 02/25/17 08:00 97.3 83 18 181/90 95 02/25/17 04:14 82 155/82 02/25/17 04:00 96.2 81 20 178/83 94 02/25/17 00:00 96.3 70 22 158/80 97 02/24/17 22:00 77 02/24/17 20:00 97.2 85 22 128/79 97 02/24/17 16:00 96.5 108 18 124/83 97 02/24/17 13:58 96.9 76 14 111/64 100 02/24/17 13:41 96.7 79 16 126/72 99 02/24/17 12:00 96.5 76 18 142/82 96 I/O 02/24/17 02/24/17 02/24/17 02/25/17 02/25/17 02/25/17 07:00 15:00 23:00 07:00 15:00 23:00 Intake Total 325 ml 642 ml 320 ml 550 ml 0 ml Output Total 700 ml 200 ml 150 ml Balance 325 ml -58 ml 120 ml 400 ml 0 ml Intake Oral 280 ml 240 ml 320 ml 0 ml 0 ml IV Total 45 ml 402 ml 550 ml Output Urine Total 700 ml 200 ml 150 ml # Voids 2 # Bowel Movements 1 0 4 0 Result Diagram: 02/25/1743602/25/17 043 Procedures 02/23 BKA of right leg Objective Remarks GENERAL: Patient not in respiratory distress. Responding to questions appropriately. SKIN: Warm and dry. Discoloration in lower extremity HEAD: Normocephalic. EYES: No scleral icterus. No injection or drainage. NECK: Supple, trachea midline. No JVD or lymphadenopathy. CARDIOVASCULAR: Regular rate and rhythm without murmurs, gallops, or rubs. RESPIRATORY: Breath sounds equal bilaterally. No accessory muscle use. GASTROINTESTINAL: Abdomen soft, non-tender, nondistended. MUSCULOSKELETAL: No cyanosis, or edema. Status post right BKA. Dressing on BACK: Nontender without obvious deformity. No CVA tenderness. Medications and IVs Current Medications Medications (Trade) Dose Ordered Sig/Libia Route Start Time Stop Time Status Last Admin (NS Flush) 2 ml UNSCH PRN IV FLUSH 02/22/17 18:15 (NS Flush) 2 ml BID IV FLUSH 02/22/17 21:00 02/25/17 08:20 (Zofran Inj) 4 mg Q6H PRN IVP 02/22/17 18:15 (Narcan Inj) 0.4 mg UNSCH PRN IV 02/22/17 18:15 ([place] 10-325 Mg) 1 tab Q4H PRN PO 02/22/17 18:15 (Tenormin) 100 mg BID PO 02/22/17 21:00 02/25/17 08:19 (Lipitor) 40 mg HS PO 02/22/17 21:00 02/24/17 20:53 (Catapres) 0.1 mg BID PO 02/22/17 21:00 02/25/17 08:19 (Cardizem Cd) 240 mg DAILY PO 02/23/17 09:00 02/25/17 08:18 (Januvia) 50 mg DAILY PO 02/23/17 09:00 02/25/17 08:19 (Sodium Bicarbonate) 650 mg TIDPC PO 02/22/17 18:30 02/25/17 08:23 (Protonix) 40 mg DAILY PO 02/23/17 09:00 02/25/17 08:19 (Synthroid) 100 mcg DAILY@06 PO 02/23/17 06:00 02/25/17 05:48 Levothyroxine Sodium 75 mcg 75 mcg DAILY@06 PO 02/23/17 06:00 02/25/17 05:48 Lactated Ringer's 1,000 ml @ 30 mls/hr Q24H PRN IV 02/23/17 11:00 02/26/17 10:59 Sodium Chloride 500 ml @ 30 mls/hr [id number] PRN IV 02/23/17 11:00 02/26/17 10:59 Piperacillin Sod/ Tazobactam Sod 50 ml @ 100 mls/hr Q8H IV 02/23/17 18:00 02/25/17 08:18 (Levaquin 250 Mg Premix Inj) 50 ml @ 100 mls/hr Q24H IV 02/24/17 18:00 02/24/17 17:01 (Heparin Inj) 5,000 units Q12HR SQ 02/24/17 09:00 02/24/17 08:46 (D50w (Vial) Inj) 25 ml UNSCH PRN IV PUSH 02/24/17 11:45 (Glucagon Inj) 1 mg UNSCH PRN OTHER 02/24/17 11:45 (Vitamin D3) 5,000 units DAILY PO 02/25/17 09:00 02/25/17 08:19 (Imodium) 2 mg Q6H PRN PO 02/24/17 20:30 02/24/17 20:54 (Lasix) 40 mg DAILY PO 02/25/17 09:00 02/25/17 08:19 Assessment and Plan Problem List: (1) Gangrene Status: Acute Plan: Patient with florid wet gangrene of the right foot BKA on the 12th To OR today for above the knee amputation INR elevated at 3.9 receiving FFP today prior to surgery (2) Sepsis Status: Acute Plan: ID consulted for recommendations. On antibiotics. WBC improving (3) Acute on chronic kidney disease, stage 4 Status: Acute Plan: Nephrology consulted per note approaching end-stage renal disease. Currently however no immediate indication to initiate dialysis but the patient is at significant risk for worsening and dialysis may have to be initiated this admission depending upon progress. (4) Hypertension Status: Acute Plan: B/P elevated this am. Lasix restarted daily. Will monitor closely (5) Tobacco abuse Status: Acute Plan: smoking cessation needed (6) Diabetes Status: Acute Plan: BS AC and HS will monitor and adjust treatment as needed (7) Atrial fibrillation Status: Acute Plan: Telemetry ordered will monitor. Cardiology consulted (8) Elevated INR Status: Acute Plan: FFP ordered and hematolgy consulted and following. (9) Anemia Status: Acute Plan: Transfused 2 units of PRBC yesterday with HGB 10.0 today Assessment and Plan Assessment and plan discussed with Dr. Pelon Min ordered daily. Labs in AM Discharge Planning Plan will be to discharge to [facility] Problem Qualifiers (1) Sepsis: Qualified Code: A41.9 - Sepsis, due to unspecified organism Cherie Loyd Feb 25, 2017 10:30
[2017-02-25 11:35] LABS: INTERNATIONAL NORMALIZED RATIO 2.3 RATIO; PROTHROMBIN TIME - PATIENT 26.2 SEC (9.8-11.6)
[2017-02-25] MEDS: PHYTONADIONE 5 MG TAB PO SCH (11:38)
[2017-02-25] MEDS ORDERED: NEOSTIGMINE 3 MG/3 ML SYR IV ONE (12:00)
[2017-02-25] MEDS ORDERED: LACTATED RINGER'S 1000 ML INJ 1,000 ML IV ONE (12:00)
[2017-02-25] MEDS ORDERED: PROPOFOL 200 MG/20 ML AMP IV ONE (12:00)
[2017-02-25] MEDS ORDERED: ONDANSETRON HCL 4 MG/2 ML VIAL IV PUSH ONE (12:00)
--- NOTE | 2017-02-25 13:26 | MB ---
cc: POOJA COREY M.D., GERALD R. D.O. QUADRAT, OTAKAR MD DATE OF CONSULTATION: 02/25/2017. HISTORY OF PRESENT ILLNESS: Thank you for asking us to see this very pleasant 71-year-old white male who presents with a history of gangrene and surgery to his right lower extremity. He is probably going to have a repeat amputation today and this is a cardiology consultation for clearance. The patient denies any chest pain. No shortness of breath. He underwent his prior surgery without any problems. This is a 71-year-old male who worked in the [employer]. He has had a history of atrial fibrillation. He has been on coumadin for ten years and this has been treated by both Dr. Bird and his regular web site administrator, Dr. Greenberg. When he was in the emergency room, he had an INR of greater than 14.5. He was treated with fresh frozen plasma and oral vitamin K. Apparently had a below-knee amputation on 02/23/2017. PAST MEDICAL HISTORY: His past medical history is positive for: 1. Peripheral vascular disease. 2. Atrial fibrillation. 3. Diabetes. 4. Smoking. 5. Agent [place]. 6. Advanced stage chronic kidney failure. 7. Hyperlipidemia. 8. GE reflux. 9. Hypertension. 10. Hypothyroidism. 11. Tracheostomy wound care on the right foot. FAMILY HISTORY: The mom lived to 95, the father to 85. ALLERGIES: NONE KNOWN. SOCIAL HISTORY: Nonsmoker and non-drinker. No drugs. MEDICATIONS: His medications include: 1. Levofloxacin. 2. Lactated Ringers. 3. Zosyn. 4. Vancomycin. 5. Hydrocodone. 6. Atenolol. 7. Atorvastatin. 8. Clonidine. 9. Diltiazem. 10. Levothyroxine. 11. Zofran. 12. Pantoprazole. 13. Januvia. 14. Sodium bicarbonate. REVIEW OF SYSTEMS: Denies seizure, headache, . The remainder of the review of systems is negative. PHYSICAL EXAMINATION: VITAL SIGNS: On examination, pulse was 83, respirations 18, blood pressure 181/90. HEAD, EYES, EARS, NOSE, THROAT: Eyes show no xanthelasma. Mouth shows no cyanosis or pallor. NECK: No jugular venous distention. HEART: He had two heart sounds. No murmurs. CHEST: Clear. ABDOMEN: Abdomen soft. No hepatosplenomegaly. EXTREMITIES: No evidence of edema. NEUROLOGICAL EXAMINATION: Grossly intact. SKIN: Grossly intact. LABORATORY TESTS: White count is very high at 37.7, hemoglobin 10.5, platelet count is 360,000. 1 band. 96% neutrophils. Sodium 135, potassium 4.0, BUN 50, creatinine 4.24. Initial INR on 02/23 was greater than 14.5. White count dropped from 37.7 on admission to 15.5. EKGS: EKG showed atrial fibrillation. ASSESSMENT AND PLAN: At this point, he appears to be stable. I feel he will tolerate surgery well. If there are any further issues or problems, please feel free to contact us. Dr. Greenberg will be available on Tuesday if there are any other issues. Thank you for asking us to see this very pleasant gentleman. Pooja Corey MD, FRCP,[facility]IN [facility]ENTERSelwyn/JCC /11:51 AM /1:12 PM
[2017-02-25] MEDS ORDERED: *morphine SULFATE 8 MG/ML PERIprocedure ONLY ONE ×3 (14:09→14:37)
[2017-02-25] MEDS ORDERED: fentaNYL CITRATE 250 MCG/5 ML AMP ONE (14:21)
--- NOTE | 2017-02-25 14:43 | HHI.IDPN ---
Subjective Subjective Remarks Notes reviewed Temps ok To OR for second stage procedure BC with proteus and Enterococcus Wound C/S Preoteus, PSAE and Enterococcus Repeat BC negative so far WBC better Antibiotics Zosyn Vancomycin Lines PIV Past Medical History AFIB Hyperlipidemia Diabetes GERD Hypertension Renal Failure Thyroid Disease Past Surgical History Previous tracheostomy AV fistula in the right upper extremity Allergies: Coded Allergies: No Known Allergies (Unverified , 01/11/17) Objective . Vital Signs Date Time Temp Pulse Resp B/P Pulse Ox O2 Delivery O2 Flow Rate FiO2 02/25/17 09:43 96.9 80 20 167/94 94 02/25/17 09:33 96.4 89 18 155/93 96 02/25/17 09:06 95.3 80 20 160/91 95 02/25/17 08:55 97.8 90 18 167/89 96 02/25/17 08:48 97.8 90 18 167/89 96 02/25/17 08:00 97.3 83 18 181/90 95 02/25/17 04:14 82 155/82 02/25/17 04:00 96.2 81 20 178/83 94 02/25/17 00:00 96.3 70 22 158/80 97 02/24/17 22:00 77 02/24/17 20:00 97.2 85 22 128/79 97 02/24/17 16:00 96.5 108 18 124/83 97 02/24/17 02/24/17 02/25/17 15:00 23:00 07:00 Intake Total 642 ml 320 ml 550 ml Output Total 700 ml 200 ml 150 ml Balance -58 ml 120 ml 400 ml Intake Oral 240 ml 320 ml 0 ml IV Total 402 ml 550 ml Output Urine Total 700 ml 200 ml 150 ml # Bowel Movements 0 4 0 . Laboratory Tests Test 02/23/17 02/24/17 02/25/17 16:33 04:05 04:37 White Blood Count 28.4 TH/MM3 16.2 TH/MM3 15.5 TH/MM3 Red Blood Count 2.86 MIL/MM3 2.59 MIL/MM3 3.48 MIL/MM3 Hemoglobin 8.2 GM/DL 7.4 GM/DL 10.0 GM/DL Hematocrit 25.1 % 22.7 % 30.4 % Mean Corpuscular Volume 87.6 FL 87.9 FL 87.3 FL Mean Corpuscular Hemoglobin 28.7 PG 28.7 PG 28.7 PG Mean Corpuscular Hemoglobin 32.8 % 32.7 % 32.8 % Concent Red Cell Distribution Width 15.5 % 15.2 % 15.6 % Platelet Count 282 TH/MM3 269 TH/MM3 283 TH/MM3 Mean Platelet Volume 9.3 FL 9.3 FL 9.2 FL Neutrophils (%) (Auto) 94.7 % 93.5 % 90.2 % Lymphocytes (%) (Auto) 1.5 % 1.8 % 4.1 % Monocytes (%) (Auto) 3.3 % 4.6 % 5.1 % Eosinophils (%) (Auto) 0.4 % 0.0 % 0.4 % Basophils (%) (Auto) 0.1 % 0.1 % 0.2 % Neutrophils # (Auto) 26.9 TH/MM3 15.1 TH/MM3 14.0 TH/MM3 Lymphocytes # (Auto) 0.4 TH/MM3 0.3 TH/MM3 0.6 TH/MM3 Monocytes # (Auto) 0.9 TH/MM3 0.8 TH/MM3 0.8 TH/MM3 Eosinophils # (Auto) 0.1 TH/MM3 0.0 TH/MM3 0.1 TH/MM3 Basophils # (Auto) 0.0 TH/MM3 0.0 TH/MM3 0.0 TH/MM3 CBC Comment DIFF FINAL DIFF FINAL DIFF FINAL Differential Comment Laboratory Tests Test 02/24/17 02/25/17 04:05 04:37 Sodium Level 136 MEQ/L 138 MEQ/L Potassium Level 3.5 MEQ/L 3.5 MEQ/L Chloride Level 99 MEQ/L 101 MEQ/L Carbon Dioxide Level 27.1 MEQ/L 26.8 MEQ/L Anion Gap 10 MEQ/L 10 MEQ/L Blood Urea Nitrogen 52 MG/DL 55 MG/DL Creatinine 4.08 MG/DL 3.98 MG/DL Estimat Glomerular Filtration 15 ML/MIN 15 ML/MIN Rate Random Glucose 172 MG/DL 123 MG/DL Calcium Level 8.0 MG/DL 8.2 MG/DL Phosphorus Level 4.3 MG/DL Magnesium Level 1.9 MG/DL 1.9 MG/DL Iron Level 21 MCG/DL Total Iron Binding Capacity 158 MCG/DL Percent Iron Saturation 13.3 % Ferritin 276 NG/ML Albumin 1.7 GM/DL 1.7 GM/DL 25-Hydroxy Vitamin D Total 25.0 ng/ML Thyroid Stimulating Hormone 0.320 uIU/ML 3rd Gen Total Bilirubin 0.5 MG/DL Aspartate Amino Transf 26 U/L (AST/SGOT) Alanine Aminotransferase 11 U/L (ALT/SGPT) Alkaline Phosphatase 176 U/L Total Protein 6.3 GM/DL Microbiology Date/Time Procedure Status Source Growth 02/22/17 16:55 Aerobic Blood Culture - Preliminary Resulted Blood Peripheral NO GROWTH IN 3 DAYS 02/22/17 16:55 Anaerobic Blood Culture - Preliminary Resulted Gram Positive Cocci 02/22/17 16:55 Aerobic Blood Culture - Preliminary Resulted Blood Peripheral NO GROWTH IN 3 DAYS 02/22/17 16:55 Anaerobic Blood Culture - Preliminary Resulted Enterococcus Faecalis Proteus Mirabilis 02/22/17 17:10 Gram Stain - Final Complete Wound Foot 02/22/17 17:10 Wound Culture - Final Complete Proteus Mirabilis Enterococcus Faecalis Pseudomonas Aeruginosa 02/24/17 04:05 Aerobic Blood Culture - Preliminary Resulted Blood Peripheral NO GROWTH IN 1 DAY 02/24/17 04:05 Anaerobic Blood Culture - Preliminary Resulted Blood Peripheral NO GROWTH IN 1 DAY 02/24/17 04:11 Aerobic Blood Culture - Preliminary Resulted Blood Peripheral NO GROWTH IN 1 DAY 02/24/17 04:11 Anaerobic Blood Culture - Preliminary Resulted Blood Peripheral NO GROWTH IN 1 DAY Imaging Last Impressions Foot X-Ray 02/22/17 0000 Signed Impressions: Service Date/Time: Wednesday, February 22, 2017 17:46 - CONCLUSION: Soft tissues extensive soft tissue emphysema, mottled in appearance very concerning for infection with gas-forming organism. No obvious osseous destruction is seen to suggest osteomyelitis. Abhi Seo MD Physical Exam GENERAL awake and alert, NAD SKIN: Cool and dry. No generalized rash HEENT: [place] conjunctivae. No scleral icterus. No injection or drainage. Moist oral mucosa. NECK: Supple, nontender, no meningeal signs. CARDIOVASCULAR: Regular rate and rhythm without murmurs, gallops, or rubs. RESPIRATORY: Clear to auscultation. Breath sounds equal bilaterally. No wheezes , rales, or rhonchi. GASTROINTESTINAL: Abdomen soft, non-tender, nondistended. No hepato-splenomegaly , or palpable masses. No guarding. MUSCULOSKELETAL: LLE without clubbing, cyanosis, or edema. No joint tenderness, effusion. S/P RBKA with dry dressing. NEUROLOGICAL: Awake and alert. Cranial nerves II through XII intact. Motor and sensory grossly within normal limits. Normal speech. PSYCH: Cooperative, LINE: PIV with no evidence of infection Assessment & Plan Remarks IMPRESSION Sepsis with proteus and Enterococcus due to wet gangrene R foot DFI, PVD with wet gangrene - S/P R BKA Renal failure RECOMMENDATION Follow CBC Continue Zosyn Will not give any further Vanco Follow C/S and adjust Abx Monitor progress I will see patient again Tuesday Please call ID MD concrete grinder operator if with any ID concerns or questions Connie Crena MD Feb 25, 2017 14:43
[2017-02-25] MEDS ORDERED: *HYDROmorphone PF 1 MG VIAL PERIprocedural Use ONLY ONE (15:02)
[2017-02-25] MEDS: LEVOFLOXACIN 250 MG PREMIX INJ 50 ML IV SCH (17:06)
[2017-02-25] MEDS: ATORVASTATIN 40 MG TAB PO SCH (21:28)
[2017-02-26] VITALS (9 sets, daily range): BP systolic 132–173; BP diastolic 77–94; PULSE 75–92; RESP 16–19; TEMP 95.6–98.1; O2SAT 96–100
[2017-02-26] MEDS: PIPERACIL-TAZO 2.25 GM PREMIX 50 ML IV SCH ×3 (01:44→16:14)
[2017-02-26] MEDS: LEVOTHYROXINE SODIUM 75 MCG TAB PO SCH (05:49)
[2017-02-26] MEDS: LEVOTHYROXINE SODIUM 100 MCG TAB PO SCH (05:49)
[2017-02-26 06:00] LABS: HEMATOCRIT 26.7 % (39.0-51.0); MEAN CELL VOLUME 89.1 FL (80.0-100.0); MEAN CORPUSCULAR HEMOGLOBIN 28.1 PG (27.0-34.0); MEAN CORPUSCULAR HGB CONC 31.5 % (32.0-36.0); PLATELET COUNT 285 TH/MM3 (150-450); RED BLOOD COUNT 2.99 MIL/MM3 (4.50-5.90); RED CELL DISTRIBUTION WIDTH 15.4 % (11.6-17.2); WHITE BLOOD COUNT 20.2 TH/MM3 (4.0-11.0)
[2017-02-26 06:05] LABS: HEMO FLAGS AUTO DIFF
[2017-02-26 06:11] LABS: INTERNATIONAL NORMALIZED RATIO 2.4 RATIO; PROTHROMBIN TIME - PATIENT 27.5 SEC (9.8-11.6)
[2017-02-26 06:20] LABS: BICARBONATE 27.7 MEQ/L (21.0-32.0); POTASSIUM 3.7 MEQ/L (3.5-5.1)
[2017-02-26] MEDS: ACETAMINOPHEN/HYDROcodone 325 MG/10 MG TAB PO PRN ×3 (06:37→18:06)
[2017-02-26] MEDS: INSULIN NovoLIN REGULAR SUPPLEMENTAL SCALE SQ SCH ×4 (06:41→21:00)
[2017-02-26] MEDS: PANTOPRAZOLE SOD 40 MG DELAYED RELEASE TAB PO SCH (07:52)
[2017-02-26] MEDS: ATENOLOL 100 MG TAB PO SCH ×2 (07:52→21:13)
[2017-02-26] MEDS: SODIUM BICARBONATE 650 MG TAB PO SCH ×3 (07:52→15:30)
[2017-02-26] MEDS: CHOLECALCIFEROL (VIT D3) 5000 UNIT CAP PO SCH (07:52)
[2017-02-26] MEDS: FUROSEMIDE 40 MG TAB PO SCH (07:53)
[2017-02-26] MEDS: cloNIDine HCL 0.1 MG TAB PO SCH ×2 (07:53→21:13)
[2017-02-26] MEDS: PHYTONADIONE 5 MG TAB PO SCH (07:53)
[2017-02-26] MEDS: DILTIAZEM-CD 240 MG CAP ER PO SCH (07:54)
[2017-02-26] MEDS: HEPARIN SODIUM - SQ 10,000 UNITS/ML VIAL SQ SCH (08:08)
[2017-02-26] MEDS: SODIUM CHLORIDE 0.9% FLUSH 10 ML FLUSH IV FLUSH SCH ×2 (08:08→21:12)
[2017-02-26 08:18] LABS: BANDS 3 % (0-6); NEUTROPHIL # MANUAL DIFF 19.2 TH/MM3 (1.8-7.7); POLYS (SEG NEUTROPHILS) 92 % (16-70); WBC DIFF SAMPLE 100
[2017-02-26 08:19] LABS: PLATELET ESTIMATE SMEAR NORMAL (NORMAL); PLATELET MORPHOLOGY NORMAL (NORMAL); SCAN/DIFF FINAL DIFF MANUAL
--- NOTE | 2017-02-26 12:10 | HHI.PR ---
Subjective Remarks resting quietly s/p aka having phantom pains Objective Vital Signs Date Time Temp Pulse Resp B/P Pulse Ox O2 Delivery O2 Flow Rate FiO2 02/26/17 08:00 Nasal Cannula 2.00 02/26/17 08:00 96.8 90 18 153/89 100 02/26/17 04:20 84 158/90 02/26/17 04:00 95.6 87 16 173/94 100 02/26/17 00:00 95.7 92 16 156/85 99 02/25/17 20:00 89 16 158/83 99 02/25/17 20:00 77 02/25/17 16:45 98.3 78 12 152/91 94 Nasal Cannula 3 02/25/17 16:30 75 12 148/78 94 Nasal Cannula 3 02/25/17 16:15 81 10 148/78 94 Nasal Cannula 3 02/25/17 16:00 82 12 148/90 93 Nasal Cannula 3 02/25/17 15:45 83 12 158/91 92 Nasal Cannula 3 02/25/17 15:30 82 12 165/93 93 Nasal Cannula 3 02/25/17 15:15 81 12 168/100 93 Nasal Cannula 3 02/25/17 15:00 83 14 176/95 97 Nasal Cannula 3 02/25/17 14:45 82 14 171/96 97 Nasal Cannula 4 02/25/17 14:30 82 14 165/90 97 Nasal Cannula 4 02/25/17 14:15 80 14 157/87 96 Nasal Cannula 4 02/25/17 14:00 98.4 77 14 164/85 96 Nasal Cannula 4 I/O 02/25/17 02/25/17 02/25/17 02/26/17 02/26/17 02/26/17 07:00 15:00 23:00 07:00 15:00 23:00 Intake Total 550 ml 1850 ml 150 ml 50 ml Output Total 150 ml 500 ml 250 ml 200 ml Balance 400 ml 1350 ml -100 ml -150 ml Intake Oral 0 ml 0 ml 0 ml 0 ml IV Total 550 ml 50 ml 150 ml 50 ml FFP 500 ml Other 1300 ml Output Urine Total 150 ml 300 ml 250 ml 200 ml Estimated Blood Loss 200 ml # Bowel Movements 0 0 Result Diagram: 02/26/17 0430 02/26/17 0430 Procedures 02/23 BKA of right leg 02/25 AKA r leg Objective Remarks CONSTITUTIONAL/GENERAL: This is an adequately nourished patient, in no apparent distress. TUBES/LINES/DRAINS: SKIN: No jaundice, rashes, or lesions. Ecchymoses on upper extremities. No wounds seen anteriorly. Skin temperature appropriate. Not diaphoretic. HEAD: Atraumatic. Normocephalic. EYES: Pupils equal and round and reactive. Extraocular motions intact. No scleral icterus. No injection or drainage. Fundi not examined. ENT: Hearing grossly normal. Nose without bleeding or purulent drainage. Throat without visible erythema, exudates, masses, or lesions. NECK: Trachea midline. Supple, nontender. No palpable thyroid enlargement or nodularity. CARDIOVASCULAR: Regular rate and rhythm without murmurs, gallops, or rubs. No JVD. Peripheral pulses symmetric. RESPIRATORY/CHEST: Symmetric, unlabored respirations. Clear to auscultation. Breath sounds equal bilaterally. No wheezes, rales, or rhonchi. GASTROINTESTINAL: Abdomen soft, non-tender, nondistended. No hepato-splenomegaly , or palpable masses. No guarding. Bowel sounds present. GENITOURINARY: Without palpable bladder distension. Aguilar catheter in place. MUSCULOSKELETAL: Extremities without clubbing, cyanosis, or edema. No joint tenderness or effusion noted. No calf tenderness. No mottling or clubbing recent RAKA BANDAGED. LYMPHATICS: No palpable cervical or supraclavicular adenopathy. NEUROLOGICAL: Awake and alert. Motor and sensory grossly within normal limits. Follows commands. Cognitively sharp. Moves all extremities. PSYCHIATRIC: No obvious anxiety/depression. no apparent hallucinations or other psychotic thought process. Medications and IVs Current Medications Medications (Trade) Dose Ordered Sig/Libia Route PRN Reason Start Time Stop Time Status Last Admin Dose Admin Sodium Chloride (NS Flush) 2 ml UNSCH PRN IV FLUSH FLUSH AFTER USING IV ACCESS 02/22/17 18:15 Sodium Chloride (NS Flush) 2 ml BID IV FLUSH 02/22/17 21:00 02/26/17 08:08 Ondansetron HCl (Zofran Inj) 4 mg Q6H PRN IVP NAUSEA OR VOMITING 02/22/17 18:15 Naloxone HCl (Narcan Inj) 0.4 mg UNSCH PRN IV SEE LABEL COMMENTS 02/22/17 18:15 Acetaminophen/ Hydrocodone Bitart ([place] 10-325 Mg) 1 tab Q4H PRN PO PAIN SCALE 1 TO 7 02/22/17 18:15 02/26/17 10:41 Atenolol (Tenormin) 100 mg BID PO 02/22/17 21:00 02/26/17 07:52 Atorvastatin Calcium (Lipitor) 40 mg HS PO 02/22/17 21:00 02/25/17 21:28 Clonidine (Catapres) 0.1 mg BID PO 02/22/17 21:00 02/26/17 07:53 Diltiazem HCl (Cardizem Cd) 240 mg DAILY PO 02/23/17 09:00 02/26/17 07:54 Sitagliptin Phosphate (Januvia) 50 mg DAILY PO 02/23/17 09:00 02/26/17 07:52 Sodium Bicarbonate (Sodium Bicarbonate) 650 mg TIDPC PO 02/22/17 18:30 02/26/17 07:52 Pantoprazole Sodium (Protonix) 40 mg DAILY PO 02/23/17 09:00 02/26/17 07:52 Levothyroxine Sodium (Synthroid) 100 mcg DAILY@06 PO 02/23/17 06:00 02/26/17 05:49 Levothyroxine Sodium 75 mcg 75 mcg DAILY@06 PO 02/23/17 06:00 02/26/17 05:49 Piperacillin Sod/ Tazobactam Sod 50 ml @ 100 mls/hr Q8H IV 02/23/17 18:00 02/26/17 07:58 Levofloxacin/ Dextrose (Levaquin 250 Mg Premix Inj) 50 ml @ 100 mls/hr Q24H IV 02/24/17 18:00 02/25/17 17:06 Heparin Sodium (Porcine) (Heparin Inj) 5,000 units Q12HR SQ 02/24/17 09:00 Hold 02/26/17 08:08 Dextrose (D50w (Vial) Inj) 25 ml UNSCH PRN IV PUSH HYPOGLYCEMIA-SEE COMMENTS 02/24/17 11:45 Glucagon (Glucagon Inj) 1 mg UNSCH PRN OTHER HYPOGLYCEMIA-SEE COMMENTS 02/24/17 11:45 Cholecalciferol (Vitamin D3) 5,000 units DAILY PO 02/25/17 09:00 02/26/17 07:52 Loperamide HCl (Imodium) 2 mg Q6H PRN PO DIARRHEA 02/24/17 20:30 02/24/17 20:54 Furosemide (Lasix) 40 mg DAILY PO 02/25/17 09:00 02/26/17 07:53 Phytonadione (Mephyton) 2.5 mg DAILY PO 02/25/17 12:00 02/27/17 09:01 02/26/17 07:53 Assessment and Plan Problem List: (1) Unilateral AKA Status: Acute Assessment and Plan recent r aka having phantom pain will add neurontin Discussed Condition With patient and Discharge Planning [facility] Problem Qualifiers (1) Unilateral AKA: Qualified Code: Z89.611 - Unilateral AKA, right Antoni Bird DO Feb 26, 2017 12:10
[2017-02-26] MEDS: GABAPENTIN 100 MG CAP PO SCH ×2 (12:46→16:13)
--- NOTE | 2017-02-26 12:47 | PD.ONC.PN ---
Subjective Subjective Remarks Afebrile overnight. patient resting comfortably. Denies bleeding. s/p AKA yesterday. Objective Data Date Time Temp Pulse Resp B/P Pulse Ox O2 Delivery O2 Flow Rate FiO2 02/26/17 12:00 98.1 82 19 151/85 100 02/26/17 08:00 Nasal Cannula 2.00 02/26/17 08:00 96.8 90 18 153/89 100 02/26/17 04:20 84 158/90 02/26/17 04:00 95.6 87 16 173/94 100 02/26/17 00:00 95.7 92 16 156/85 99 02/25/17 20:00 89 16 158/83 99 02/25/17 20:00 77 02/25/17 16:45 98.3 78 12 152/91 94 Nasal Cannula 3 02/25/17 16:30 75 12 148/78 94 Nasal Cannula 3 02/25/17 16:15 81 10 148/78 94 Nasal Cannula 3 02/25/17 16:00 82 12 148/90 93 Nasal Cannula 3 02/25/17 15:45 83 12 158/91 92 Nasal Cannula 3 02/25/17 15:30 82 12 165/93 93 Nasal Cannula 3 02/25/17 15:15 81 12 168/100 93 Nasal Cannula 3 02/25/17 15:00 83 14 176/95 97 Nasal Cannula 3 02/25/17 14:45 82 14 171/96 97 Nasal Cannula 4 02/25/17 14:30 82 14 165/90 97 Nasal Cannula 4 02/25/17 14:15 80 14 157/87 96 Nasal Cannula 4 02/25/17 14:00 98.4 77 14 164/85 96 Nasal Cannula 4 Result Diagram: 02/26/17 0430 02/26/17 0430 Laboratory Results Laboratory Tests Test 02/26/17 02/26/17 04:30 05:40 White Blood Count 20.2 TH/MM3 Red Blood Count 2.99 MIL/MM3 Hemoglobin 8.4 GM/DL Hematocrit 26.7 % Mean Corpuscular Volume 89.1 FL Mean Corpuscular Hemoglobin 28.1 PG Mean Corpuscular Hemoglobin 31.5 % Concent Red Cell Distribution Width 15.4 % Platelet Count 285 TH/MM3 Mean Platelet Volume 8.9 FL Neutrophils (%) (Auto) % Lymphocytes (%) (Auto) % Monocytes (%) (Auto) % Eosinophils (%) (Auto) % Basophils (%) (Auto) % Neutrophils # (Auto) TH/MM3 Lymphocytes # (Auto) TH/MM3 Monocytes # (Auto) TH/MM3 Eosinophils # (Auto) TH/MM3 Basophils # (Auto) TH/MM3 CBC Comment AUTO DIFF Differential Total Cells 100 Counted Neutrophils % (Manual) 92 % Band Neutrophils % 3 % Lymphocytes % 1 % Monocytes % 4 % Neutrophils # (Manual) 19.2 TH/MM3 Differential Comment FINAL DIFF MANUAL Platelet Estimate NORMAL Platelet Morphology Comment NORMAL Red Cell Morphology Comment NORMAL Sodium Level 140 MEQ/L Potassium Level 3.7 MEQ/L Chloride Level 102 MEQ/L Carbon Dioxide Level 27.7 MEQ/L Anion Gap 10 MEQ/L Blood Urea Nitrogen 51 MG/DL Creatinine 3.99 MG/DL Estimat Glomerular Filtration 15 ML/MIN Rate Random Glucose 101 MG/DL Calcium Level 8.3 MG/DL Prothrombin Time 27.5 SEC Prothromb Time International 2.4 RATIO Ratio Culture Results Microbiology Date/Time Procedure Status Source Growth 02/24/17 04:05 Aerobic Blood Culture - Preliminary Resulted Blood Peripheral NO GROWTH IN 2 DAYS 02/24/17 04:05 Anaerobic Blood Culture - Preliminary Resulted Blood Peripheral NO GROWTH IN 2 DAYS 02/24/17 04:11 Aerobic Blood Culture - Preliminary Resulted Blood Peripheral NO GROWTH IN 2 DAYS 02/24/17 04:11 Anaerobic Blood Culture - Preliminary Resulted Blood Peripheral NO GROWTH IN 2 DAYS Administered Medications Medications (Trade) Dose Ordered Sig/Libia Route PRN Reason Start Time Stop Time Status Last Admin Dose Admin Sodium Chloride (NS Flush) 2 ml BID IV FLUSH 02/22/17 21:00 02/26/17 08:08 Acetaminophen/ Hydrocodone Bitart ([place] 10-325 Mg) 1 tab Q4H PRN PO PAIN SCALE 1 TO 7 02/22/17 18:15 02/26/17 10:41 Atenolol (Tenormin) 100 mg BID PO 02/22/17 21:00 02/26/17 07:52 Atorvastatin Calcium (Lipitor) 40 mg HS PO 02/22/17 21:00 02/25/17 21:28 Clonidine (Catapres) 0.1 mg BID PO 02/22/17 21:00 02/26/17 07:53 Diltiazem HCl (Cardizem Cd) 240 mg DAILY PO 02/23/17 09:00 02/26/17 07:54 Sitagliptin Phosphate (Januvia) 50 mg DAILY PO 02/23/17 09:00 02/26/17 07:52 Sodium Bicarbonate (Sodium Bicarbonate) 650 mg TIDPC PO 02/22/17 18:30 02/26/17 07:52 Pantoprazole Sodium (Protonix) 40 mg DAILY PO 02/23/17 09:00 02/26/17 07:52 Levothyroxine Sodium (Synthroid) 100 mcg DAILY@06 PO 02/23/17 06:00 02/26/17 05:49 Levothyroxine Sodium 75 mcg 75 mcg DAILY@06 PO 02/23/17 06:00 02/26/17 05:49 Piperacillin Sod/ Tazobactam Sod 50 ml @ 100 mls/hr Q8H IV 02/23/17 18:00 02/26/17 07:58 Levofloxacin/ Dextrose (Levaquin 250 Mg Premix Inj) 50 ml @ 100 mls/hr Q24H IV 02/24/17 18:00 02/25/17 17:06 Heparin Sodium (Porcine) (Heparin Inj) 5,000 units Q12HR SQ 02/24/17 09:00 Hold 02/26/17 08:08 Cholecalciferol (Vitamin D3) 5,000 units DAILY PO 02/25/17 09:00 02/26/17 07:52 Loperamide HCl (Imodium) 2 mg Q6H PRN PO DIARRHEA 02/24/17 20:30 02/24/17 20:54 Furosemide (Lasix) 40 mg DAILY PO 02/25/17 09:00 02/26/17 07:53 Phytonadione (Mephyton) 2.5 mg DAILY PO 02/25/17 12:00 02/27/17 09:01 02/26/17 07:53 Objective Remarks GENERAL: Elderly male, lying in bed, sleeping on approach SKIN: Warm and dry. bandages on forearms are clean. dressing to right leg stump is clean without bleeding HEAD: Atraumatic. Normocephalic. EYES: No injection or drainage. ENT: No nasal bleeding or discharge. Mucous membranes pink and moist. NECK: Trachea midline. CARDIOVASCULAR: IRR RESPIRATORY: diminished at bases, scattered rhonchi GASTROINTESTINAL: Abdomen soft, non-tender, nondistended. EXTREMITIES: RLE with AKA bandage over the stump is c/d/i, no bleeding NEUROLOGICAL: Awake and alert. Normal speech. Assessment/Plan Problem List: (1) Anemia Status: Acute Plan: -- Likely secondary to acute blood loss compounded by renal failure and chronic illness. --transfuse as needed (2) Coagulopathy Status: Acute Plan: --secondary to consumption of coagulation factors and likely potentiation of the Coumadin effect due to his gangrene and sepsis. Assessment 71y/o male with supratherapeutic INR in a patient with sepsis secondary to gangrene. --history of atrial fibrillation --has been on Warfarin >10 years. 2.5 mg daily six days a week and 2 mg one day a week. This helped maintain his INR at about 2.5. --s/p right [id number] amputation on 02/23/2017. h/o Diabetes Peripheral vascular disease tobaccoism Agent orange exposure Advanced stage chronic kidney failure Hyperlipidemia Gastroesophageal reflux disease Hypertension Hypothyroidism Plan 1. INR 2.4 today. 2. monitor CBC Attending Statement The exam, history, and the medical decision-making described in the above note were completed with the assistance of the mid-level provider. I reviewed and agree with the findings presented. I attest that I had a [id number] encounter with the patient on the same day, and personally performed and documented my assessment and findings in the medical record. Charo Medellin Feb 26, 2017 12:46 Jonathan Blue MD Feb 27, 2017 00:11
[2017-02-26] MEDS: LEVOFLOXACIN 250 MG PREMIX INJ 50 ML IV SCH (16:18)
--- NOTE | 2017-02-26 16:38 | HHI.NPPN ---
Subjective History of Present Illness This patient is a 71-year-old male with a history of long-standing diabetes mellitus and hypertension as well as chronic kidney disease known to me from the office, approaching end-stage renal disease. 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 Patient did have an AV dialysis shunt placed in preparation for dialysis unfortunately access failed. Is on sodium bicarbonate chronically for metabolic acidosis. There has been concern regarding nutritional status recently. Additional Remarks Patient has status post above-knee amputation. No verbal complaints currently. Indicated that his appetite has improved somewhat. Objective Data Data 02/25/17 02/26/17 19:00 07:00 Intake Total 1950 ml 100 ml Output Total 600 ml 350 ml Balance 1350 ml -250 ml Intake Oral 0 ml 0 ml IV Total 150 ml 100 ml FFP 500 ml Other 1300 ml Output Urine Total 400 ml 350 ml Estimated Blood Loss 200 ml # Bowel Movements 0 Vital Signs Date Time Temp Pulse Resp B/P Pulse Ox O2 Delivery O2 Flow Rate FiO2 02/26/17 12:00 98.1 82 19 151/85 100 02/26/17 09:37 97 Nasal Cannula 2.00 02/26/17 08:00 Nasal Cannula 2.00 02/26/17 08:00 96.8 90 18 153/89 100 02/26/17 04:20 84 158/90 02/26/17 04:00 95.6 87 16 173/94 100 02/26/17 00:00 95.7 92 16 156/85 99 02/25/17 20:00 89 16 158/83 99 02/25/17 20:00 77 02/25/17 16:45 98.3 78 12 152/91 94 Nasal Cannula 3 -: 02/26/17 0430 02/26/17 0430 Assessment/Plan Problem List: (1) CKD (chronic kidney disease) stage 4, GFR 15-29 ml/min Plan: Patient status post right AKA. Renal indices appear to be remaining relatively stabilized with borderline GFR stage 4-5. Patient aware that if her azotemia worsens we will need to consider initiation of dialysis. Also monitor for uremic symptoms. Unfortunately AV dialysis shunt failed and if dialysis is required he will need placement of a hemodialysis PermCath. Discussed the above with his , patient and also his daughter Iris , on the day of consultation, in [place] [phone] and I discussed patient's current status with her including necessity for dialysis in the not too distant future. (2) Metabolic acidosis Plan: Currently compensated. Continue oral sodium bicarbonate. (3) Hyperkalemia Plan: History of hyperkalemia in the past but not presently. (4) Dialysis AV fistula malfunction (5) Vitamin D deficiency Plan: Vitamin D as ordered. (6) Malnutrition Plan: Agree with nutritional supplementation and patient was encouraged to improve his dietary protein intake. (7) Diabetes Plan: Management per primary care physician. (8) Hypertension Plan: Continue to monitor. Jeremiah Hagan MD Feb 26, 2017 16:37
--- NOTE | 2017-02-26 17:41 | MP ---
cc: JEOVANY ANDREWS DATE OF SURGERY: 02/26/2017. PREOPERATIVE DIAGNOSIS: 1. Gangrene of the right foot. 2. Sepsis. OPERATIVE PROCEDURE PERFORMED: Staged above-knee amputation. SURGEON: Jeovany Andrews M.D. ANESTHESIA: General. ESTIMATED BLOOD LOSS: 100 cc. DESCRIPTION OF THE PROCEDURE IN DETAIL: The patient was prepped and draped in the usual fashion. The lower part of the lower leg was covered with a sterile dressing. The patient underwent two days ago a guillotine below-knee amputation in order to remove necrotic foot and allow the patient to recover from the sepsis. At this point, the patient is here for right above-knee amputation. Incision was made circumferentially in a fish mouth fashion and deepened down to the femur with a combined sharp transection with a #10 blade and cautery and meticulous hemostasis as we went along. Laterally tissue was cut including the muscles and small bleeders. The patient has very calcified vessels which are almost like little pins as much calcium as they have in them. Once the femur was freed up, a periosteal elevator was used to elevate periosteum about two above the level of the skin incision and then the femur was cut using an oscillating saw. The posterior flap was now created with an amputation knife. The superficial femoral artery was clamped with a Teresa clamp and then ligated with #0 Vicryl [id number] stick tie. The same was done with the small branches of the superficial and deep femoral artery which were all tied off with 2-0 Vicryl stick ties. Once meticulous hemostasis was obtained, the stump was washed with warm saline and then the incision was closed in layers with deep fascia to deep fascia, superficial fascia to superficial fascia with #0 Vicryl and then the skin was closed with interrupted 2-0 Prolene. The patient tolerated the procedure well. Jeovany VEGA/JIMMIE /3:06 PM /5:31 PM
--- NOTE | 2017-02-26 19:28 | PD.CAR.PN ---
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 Thanks J 02/23/17 Appreciate 's evaluation and second opinion. Completely agree. Will take patient to OR for staged surgeries. BKA today, followed by AKA Tuesday or Tuesday. PT/INR consistent with coagulopathy and sepsis superimposed on Coumadintherapy Receiving FFP now Will give K centra if needed after FFP transfused. PT/INR at noon 02/24/17 Patient post staged R leg BK amputation for gangrene uf the foot and sepsis. Patient improved greatly since yesterday. For second stage surgery (R AKA) tomorrow. Agree with transfusion and will check PT/INR in am 02/26/2017 Status post right staged amputation and BKA followed by MICHAEL Dressing intact Patient resting comfortably We will leave original dressing on until Tuesday and then change it Patient has some phantom pain today and may need some Neurontin or equivalent Objective: Vital Signs Date Time Temp Pulse Resp B/P Pulse Ox O2 Delivery O2 Flow Rate FiO2 02/26/17 16:39 Room Air 02/26/17 16:00 95.9 81 17 132/77 96 02/26/17 12:00 98.1 82 19 151/85 100 02/26/17 09:37 97 Nasal Cannula 2.00 02/26/17 08:00 Nasal Cannula 2.00 02/26/17 08:00 96.8 90 18 153/89 100 02/26/17 04:20 84 158/90 02/26/17 04:00 95.6 87 16 173/94 100 02/26/17 00:00 95.7 92 16 156/85 99 02/25/17 20:00 89 16 158/83 99 02/25/17 20:00 77 Result Diagram: 02/26/17 0430 02/26/17 0430 Jeovany Ernst MD Feb 26, 2017 19:28
[2017-02-26] MEDS: ATORVASTATIN 40 MG TAB PO SCH (21:00)
[2017-02-27] VITALS (8 sets, daily range): BP systolic 106–129; BP diastolic 64–72; PULSE 72–84; RESP 15–18; TEMP 96.9–97.7; O2SAT 94–96
[2017-02-27] MEDS: PIPERACIL-TAZO 2.25 GM PREMIX 50 ML IV SCH ×3 (01:59→16:28)
[2017-02-27] MEDS: ACETAMINOPHEN/HYDROcodone 325 MG/10 MG TAB PO PRN ×2 (03:33→22:07)
[2017-02-27] MEDS: INSULIN NovoLIN REGULAR SUPPLEMENTAL SCALE SQ SCH ×4 (04:48→20:54)
[2017-02-27] MEDS: LEVOTHYROXINE SODIUM 75 MCG TAB PO SCH (04:50)
[2017-02-27] MEDS: LEVOTHYROXINE SODIUM 100 MCG TAB PO SCH (04:50)
[2017-02-27 05:37] LABS: INTERNATIONAL NORMALIZED RATIO 2.8 RATIO; PROTHROMBIN TIME - PATIENT 32.5 SEC (9.8-11.6)
[2017-02-27 05:44] LABS: AUTOMATED NEUTROPHIL # 20.2 TH/MM3 (1.8-7.7); BASOPHIL # 0.1 TH/MM3 (0-0.2); BASOPHIL % 0.3 % (0.0-2.0); EOSINOPHIL # 0.2 TH/MM3 (0-0.4); EOSINOPHIL % 0.7 % (0.0-4.0); HEMATOCRIT 22.6 % (39.0-51.0); LYMPH % 2.4 % (9.0-44.0); LYMPHOCYTE # 0.5 TH/MM3 (1.0-4.8); MEAN CELL VOLUME 89.1 FL (80.0-100.0); MEAN CORPUSCULAR HEMOGLOBIN 29.1 PG (27.0-34.0); MEAN CORPUSCULAR HGB CONC 32.6 % (32.0-36.0); MONO % 4.2 % (0.0-8.0); NEUT % 92.4 % (16.0-70.0); PLATELET COUNT 262 TH/MM3 (150-450); RED BLOOD COUNT 2.53 MIL/MM3 (4.50-5.90); RED CELL DISTRIBUTION WIDTH 15.3 % (11.6-17.2); WHITE BLOOD COUNT 21.9 TH/MM3 (4.0-11.0)
[2017-02-27 05:48] LABS: BICARBONATE 27.1 MEQ/L (21.0-32.0); POTASSIUM 3.7 MEQ/L (3.5-5.1)
[2017-02-27 06:01] LABS: HEMO FLAGS AUTO DIFF
--- NOTE | 2017-02-27 06:41 | HHI.PR ---
Subjective Remarks resting quietly s/p aka having phantom pains now improved with neurontin Objective Vital Signs Date Time Temp Pulse Resp B/P Pulse Ox O2 Delivery O2 Flow Rate FiO2 02/27/17 04:00 97.3 79 18 129/72 96 02/27/17 00:00 97.0 72 18 125/64 94 02/26/17 20:00 97.6 81 18 141/78 99 02/26/17 19:30 75 02/26/17 16:39 Room Air 02/26/17 16:00 95.9 81 17 132/77 96 02/26/17 12:00 98.1 82 19 151/85 100 02/26/17 09:37 97 Nasal Cannula 2.00 02/26/17 08:00 Nasal Cannula 2.00 02/26/17 08:00 96.8 90 18 153/89 100 I/O 02/26/17 02/26/17 02/26/17 02/27/17 02/27/17 02/27/17 07:00 15:00 23:00 07:00 15:00 23:00 Intake Total 50 ml 200 ml 0 ml 0 ml Output Total 200 ml 250 ml 150 ml 150 ml Balance -150 ml -50 ml -150 ml -150 ml Intake Oral 0 ml 200 ml 0 ml 0 ml IV Total 50 ml Output Urine Total 200 ml 250 ml 150 ml 150 ml # Bowel Movements 0 Result Diagram: 02/27/17 0418 02/27/17 0418 Procedures 02/23 BKA of right leg 02/25 AKA r leg Objective Remarks CONSTITUTIONAL/GENERAL: This is an adequately nourished patient, in no apparent distress. TUBES/LINES/DRAINS: SKIN: No jaundice, rashes, or lesions. Ecchymoses on upper extremities. No wounds seen anteriorly. Skin temperature appropriate. Not diaphoretic. HEAD: Atraumatic. Normocephalic. EYES: Pupils equal and round and reactive. Extraocular motions intact. No scleral icterus. No injection or drainage. Fundi not examined. ENT: Hearing grossly normal. Nose without bleeding or purulent drainage. Throat without visible erythema, exudates, masses, or lesions. NECK: Trachea midline. Supple, nontender. No palpable thyroid enlargement or nodularity. CARDIOVASCULAR: Regular rate and rhythm without murmurs, gallops, or rubs. No JVD. Peripheral pulses symmetric. RESPIRATORY/CHEST: Symmetric, unlabored respirations. Clear to auscultation. Breath sounds equal bilaterally. No wheezes, rales, or rhonchi. GASTROINTESTINAL: Abdomen soft, non-tender, nondistended. No hepato-splenomegaly , or palpable masses. No guarding. Bowel sounds present. GENITOURINARY: Without palpable bladder distension. Aguilar catheter in place. MUSCULOSKELETAL: Extremities without clubbing, cyanosis, or edema. No joint tenderness or effusion noted. No calf tenderness. No mottling or clubbing recent RAKA BANDAGED. LYMPHATICS: No palpable cervical or supraclavicular adenopathy. NEUROLOGICAL: Awake and alert. Motor and sensory grossly within normal limits. Follows commands. Cognitively sharp. Moves all extremities. PSYCHIATRIC: No obvious anxiety/depression. no apparent hallucinations or other psychotic thought process. Medications and IVs Current Medications Medications (Trade) Dose Ordered Sig/Libia Route PRN Reason Start Time Stop Time Status Last Admin Dose Admin Sodium Chloride (NS Flush) 2 ml UNSCH PRN IV FLUSH FLUSH AFTER USING IV ACCESS 02/22/17 18:15 Sodium Chloride (NS Flush) 2 ml BID IV FLUSH 02/22/17 21:00 02/26/17 21:12 Ondansetron HCl (Zofran Inj) 4 mg Q6H PRN IVP NAUSEA OR VOMITING 02/22/17 18:15 Naloxone HCl (Narcan Inj) 0.4 mg UNSCH PRN IV SEE LABEL COMMENTS 02/22/17 18:15 Acetaminophen/ Hydrocodone Bitart ([place] 10-325 Mg) 1 tab Q4H PRN PO PAIN SCALE 1 TO 7 02/22/17 18:15 02/27/17 03:33 Atenolol (Tenormin) 100 mg BID PO 02/22/17 21:00 02/26/17 21:13 Atorvastatin Calcium (Lipitor) 40 mg HS PO 02/22/17 21:00 02/25/17 21:28 Clonidine (Catapres) 0.1 mg BID PO 02/22/17 21:00 02/26/17 21:13 Diltiazem HCl (Cardizem Cd) 240 mg DAILY PO 02/23/17 09:00 02/26/17 07:54 Sitagliptin Phosphate (Januvia) 50 mg DAILY PO 02/23/17 09:00 02/26/17 07:52 Sodium Bicarbonate (Sodium Bicarbonate) 650 mg TIDPC PO 02/22/17 18:30 02/26/17 07:52 Pantoprazole Sodium (Protonix) 40 mg DAILY PO 02/23/17 09:00 02/26/17 07:52 Levothyroxine Sodium (Synthroid) 100 mcg DAILY@06 PO 02/23/17 06:00 02/27/17 04:50 Levothyroxine Sodium 75 mcg 75 mcg DAILY@06 PO 02/23/17 06:00 02/27/17 04:50 Piperacillin Sod/ Tazobactam Sod 50 ml @ 100 mls/hr Q8H IV 02/23/17 18:00 02/27/17 01:59 Levofloxacin/ Dextrose (Levaquin 250 Mg Premix Inj) 50 ml @ 100 mls/hr Q24H IV 02/24/17 18:00 02/26/17 16:18 Heparin Sodium (Porcine) (Heparin Inj) 5,000 units Q12HR SQ 02/24/17 09:00 Hold 02/26/17 08:08 Dextrose (D50w (Vial) Inj) 25 ml UNSCH PRN IV PUSH HYPOGLYCEMIA-SEE COMMENTS 02/24/17 11:45 Glucagon (Glucagon Inj) 1 mg UNSCH PRN OTHER HYPOGLYCEMIA-SEE COMMENTS 02/24/17 11:45 Cholecalciferol (Vitamin D3) 5,000 units DAILY PO 02/25/17 09:00 02/26/17 07:52 Loperamide HCl (Imodium) 2 mg Q6H PRN PO DIARRHEA 02/24/17 20:30 02/24/17 20:54 Furosemide (Lasix) 40 mg DAILY PO 02/25/17 09:00 02/26/17 07:53 Phytonadione (Mephyton) 2.5 mg DAILY PO 02/25/17 12:00 02/27/17 09:01 02/26/17 07:53 Gabapentin (Neurontin) 200 mg TID PO 02/26/17 13:00 02/26/17 16:13 Assessment and Plan Problem List: (1) Unilateral AKA Status: Acute Assessment and Plan recent r aka having phantom pain improved with neurontin rash back add lotrisone Problem Qualifiers (1) Unilateral AKA: Qualified Code: Z89.611 - Unilateral AKA, right Antoni Bird DO Feb 27, 2017 06:41
[2017-02-27] MEDS: BETAMETHASONE/CLOTRIMAZOLE CREAM 15 GM TOPICAL SCH ×2 (07:22→20:55)
[2017-02-27] MEDS: cloNIDine HCL 0.1 MG TAB PO SCH ×2 (07:56→20:54)
[2017-02-27] MEDS: PHYTONADIONE 5 MG TAB PO SCH (07:56)
[2017-02-27] MEDS: FUROSEMIDE 40 MG TAB PO SCH (07:56)
[2017-02-27] MEDS: GABAPENTIN 100 MG CAP PO SCH ×3 (07:56→16:28)
[2017-02-27] MEDS: ATENOLOL 100 MG TAB PO SCH ×2 (07:56→20:54)
[2017-02-27] MEDS: PANTOPRAZOLE SOD 40 MG DELAYED RELEASE TAB PO SCH (07:56)
[2017-02-27] MEDS: SODIUM BICARBONATE 650 MG TAB PO SCH ×3 (07:57→16:28)
[2017-02-27] MEDS: DILTIAZEM-CD 240 MG CAP ER PO SCH (07:57)
[2017-02-27] MEDS: CHOLECALCIFEROL (VIT D3) 5000 UNIT CAP PO SCH (07:57)
[2017-02-27] MEDS: SODIUM CHLORIDE 0.9% FLUSH 10 ML FLUSH IV FLUSH SCH ×2 (07:59→20:53)
[2017-02-27 08:53] LABS: PLATELET ESTIMATE SMEAR NORMAL (NORMAL); PLATELET MORPHOLOGY NORMAL (NORMAL); SCAN/DIFF AUTO DIFF CONFIRMED; STOMATOCYTES 1+ (NORMAL)
[2017-02-27] MEDS: LEVOFLOXACIN 250 MG PREMIX INJ 50 ML IV SCH (16:28)
[2017-02-27] MEDS: ATORVASTATIN 40 MG TAB PO SCH (20:53)
[2017-02-28] VITALS (15 sets, daily range): BP systolic 89–138; BP diastolic 53–78; PULSE 68–93; RESP 14–25; TEMP 96.4–99.5; O2SAT 65–100
[2017-02-28] MEDS: PIPERACIL-TAZO 2.25 GM PREMIX 50 ML IV SCH ×2 (02:25→08:33)
[2017-02-28] MEDS: LEVOTHYROXINE SODIUM 100 MCG TAB PO SCH (05:04)
[2017-02-28] MEDS: LEVOTHYROXINE SODIUM 75 MCG TAB PO SCH (05:04)
[2017-02-28] MEDS: INSULIN NovoLIN REGULAR SUPPLEMENTAL SCALE SQ SCH ×4 (05:07→20:01)
[2017-02-28 06:11] LABS: AUTOMATED NEUTROPHIL # 19.2 TH/MM3 (1.8-7.7); BASOPHIL # 0.1 TH/MM3 (0-0.2); BASOPHIL % 0.4 % (0.0-2.0); EOSINOPHIL # 0.3 TH/MM3 (0-0.4); EOSINOPHIL % 1.3 % (0.0-4.0); HEMATOCRIT 21.5 % (39.0-51.0); LYMPH % 2.5 % (9.0-44.0); LYMPHOCYTE # 0.5 TH/MM3 (1.0-4.8); MEAN CELL VOLUME 88.8 FL (80.0-100.0); MEAN CORPUSCULAR HEMOGLOBIN 29.2 PG (27.0-34.0); MEAN CORPUSCULAR HGB CONC 32.8 % (32.0-36.0); MONO % 4.3 % (0.0-8.0); NEUT % 91.5 % (16.0-70.0); PLATELET COUNT 243 TH/MM3 (150-450); RED BLOOD COUNT 2.42 MIL/MM3 (4.50-5.90); RED CELL DISTRIBUTION WIDTH 15.2 % (11.6-17.2); WHITE BLOOD COUNT 20.9 TH/MM3 (4.0-11.0)
[2017-02-28 06:12] LABS: HEMO FLAGS AUTO DIFF
[2017-02-28 06:18] LABS: INTERNATIONAL NORMALIZED RATIO 3.1 RATIO; PROTHROMBIN TIME - PATIENT 36.6 SEC (9.8-11.6)
[2017-02-28 06:54] LABS: BICARBONATE 27.8 MEQ/L (21.0-32.0); POTASSIUM 4.2 MEQ/L (3.5-5.1)
[2017-02-28 08:07] LABS: BANDS 2 % (0-6); BASOPHILS 1 % (0-2); EOSINOPHILS 1 % (0-4); NEUTROPHIL # MANUAL DIFF 19.4 TH/MM3 (1.8-7.7); POLYS (SEG NEUTROPHILS) 91 % (16-70); WBC DIFF SAMPLE 100
[2017-02-28 08:08] LABS: PLATELET ESTIMATE SMEAR NORMAL (NORMAL); PLATELET MORPHOLOGY NORMAL (NORMAL); SCAN/DIFF FINAL DIFF MANUAL
[2017-02-28] MEDS: GABAPENTIN 100 MG CAP PO SCH ×3 (08:33→18:15)
[2017-02-28] MEDS: SODIUM BICARBONATE 650 MG TAB PO SCH ×3 (08:33→18:06)
[2017-02-28] MEDS: CHOLECALCIFEROL (VIT D3) 5000 UNIT CAP PO SCH (08:33)
[2017-02-28] MEDS: ATENOLOL 100 MG TAB PO SCH ×2 (08:33→19:54)
[2017-02-28] MEDS: cloNIDine HCL 0.1 MG TAB PO SCH ×2 (08:33→19:54)
[2017-02-28] MEDS: PANTOPRAZOLE SOD 40 MG DELAYED RELEASE TAB PO SCH (08:33)
[2017-02-28] MEDS: DILTIAZEM-CD 240 MG CAP ER PO SCH (08:33)
[2017-02-28] MEDS: FUROSEMIDE 40 MG TAB PO SCH (08:33)
[2017-02-28] MEDS: BETAMETHASONE/CLOTRIMAZOLE CREAM 15 GM TOPICAL SCH ×2 (08:34→20:02)
[2017-02-28] MEDS: SODIUM CHLORIDE 0.9% FLUSH 10 ML FLUSH IV FLUSH SCH ×2 (08:34→19:54)
[2017-02-28] MEDS: ACETAMINOPHEN/HYDROcodone 325 MG/10 MG TAB PO PRN (09:01)
[2017-02-28] MEDS ORDERED: FUROSEMIDE 20 MG/2 ML VIAL IV PUSH PRN (09:15)
--- NOTE | 2017-02-28 11:30 | PD.CAR.PN ---
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 Thanks J 02/23/17 Appreciate 's evaluation and second opinion. Completely agree. Will take patient to OR for staged surgeries. BKA today, followed by AKA Tuesday or Tuesday. PT/INR consistent with coagulopathy and sepsis superimposed on Coumadintherapy Receiving FFP now Will give K centra if needed after FFP transfused. PT/INR at noon 02/24/17 Patient post staged R leg BK amputation for gangrene uf the foot and sepsis. Patient improved greatly since yesterday. For second stage surgery (R AKA) tomorrow. Agree with transfusion and will check PT/INR in am 02/26/2017 Status post right staged amputation and BKA followed by MICHAEL Dressing intact Patient resting comfortably We will leave original dressing on until Tuesday and then change it Patient has some phantom pain today and may need some Neurontin or equivalent 02/28/17 R AKA stump dry, incision clean Change dressing daily Stiches will remain in place for 3 weeks total Patient can be transferred to rehab/SNF from my point any time Objective: Vital Signs Date Time Temp Pulse Resp B/P Pulse Ox O2 Delivery O2 Flow Rate FiO2 02/28/17 08:00 97.2 81 16 99/55 91 02/28/17 07:20 94 Nasal Cannula 3.00 02/28/17 04:00 97.4 80 20 122/78 96 02/28/17 00:00 96.4 78 20 126/74 97 02/27/17 21:36 94 Nasal Cannula 2.00 02/27/17 20:54 78 02/27/17 16:00 97.3 77 16 110/71 94 02/27/17 13:15 94 21 02/27/17 12:00 96.9 81 16 106/67 94 Labs: Laboratory Tests Test 02/28/17 05:00 White Blood Count 20.9 TH/MM3 (4.0-11.0) Red Blood Count 2.42 MIL/MM3 (4.50-5.90) Hemoglobin 7.0 GM/DL (13.0-17.0) Hematocrit 21.5 % (39.0-51.0) Mean Corpuscular Volume 88.8 FL (80.0-100.0) Mean Corpuscular Hemoglobin 29.2 PG (27.0-34.0) Mean Corpuscular Hemoglobin 32.8 % Concent (32.0-36.0) Red Cell Distribution Width 15.2 % (11.6-17.2) Platelet Count 243 TH/MM3 (150-450) Mean Platelet Volume 9.2 FL (7.0-11.0) Neutrophils (%) (Auto) 91.5 % (16.0-70.0) Lymphocytes (%) (Auto) 2.5 % (9.0-44.0) Monocytes (%) (Auto) 4.3 % (0.0-8.0) Eosinophils (%) (Auto) 1.3 % (0.0-4.0) Basophils (%) (Auto) 0.4 % (0.0-2.0) Neutrophils # (Auto) 19.2 TH/MM3 (1.8-7.7) Lymphocytes # (Auto) 0.5 TH/MM3 (1.0-4.8) Monocytes # (Auto) 0.9 TH/MM3 (0-0.9) Eosinophils # (Auto) 0.3 TH/MM3 (0-0.4) Basophils # (Auto) 0.1 TH/MM3 (0-0.2) CBC Comment AUTO DIFF Differential Total Cells 100 Counted Neutrophils % (Manual) 91 % (16-70) Band Neutrophils % 2 % (0-6) Lymphocytes % 3 % (9-44) Monocytes % 2 % (0-8) Eosinophils % 1 % (0-4) Basophils % 1 % (0-2) Neutrophils # (Manual) 19.4 TH/MM3 (1.8-7.7) Differential Comment FINAL DIFF MANUAL Platelet Estimate NORMAL (NORMAL) Platelet Morphology Comment NORMAL (NORMAL) Basophilic Stippling FAINT (NORMAL) Prothrombin Time 36.6 SEC (9.8-11.6) Prothromb Time International 3.1 RATIO Ratio Sodium Level 141 MEQ/L (136-145) Potassium Level 4.2 MEQ/L (3.5-5.1) Chloride Level 103 MEQ/L (98-107) Carbon Dioxide Level 27.8 MEQ/L (21.0-32.0) Anion Gap 10 MEQ/L (5-15) Blood Urea Nitrogen 51 MG/DL (7-18) Creatinine 4.74 MG/DL (0.60-1.30) Estimat Glomerular Filtration 12 ML/MIN (>89) Rate Random Glucose 83 MG/DL (74-106) Calcium Level 8.1 MG/DL (8.5-10.1) Result Diagram: 02/28/17 0500 02/28/17 0500 Jeovany Ernst MD Feb 28, 2017 11:29
[2017-02-28] MEDS ORDERED: PILL SPLITTER OTHER PRN (12:00)
[2017-02-28] MEDS ORDERED: PHYTONADIONE 5 MG TAB PO ONE (12:00)
[2017-02-28] MEDS ORDERED: SODIUM CHLOR 0.9% 250 ML INJ 250 ML IV ONE (12:30)
--- NOTE | 2017-02-28 12:32 | HHI.NPPN ---
Subjective History of Present Illness This patient is a 71-year-old male with a history of long-standing diabetes mellitus and hypertension as well as chronic kidney disease known to me from the office, approaching end-stage renal disease. 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 Patient did have an AV dialysis shunt placed in preparation for dialysis unfortunately access failed. Is on sodium bicarbonate chronically for metabolic acidosis. There has been concern regarding nutritional status recently. Interval History Blood pressure was low this a.m. Nutritional intake borderline. Patient somewhat lethargic today. Additional Remarks Patient has status post above-knee amputation. No verbal complaints currently. Indicated that his appetite has improved somewhat. Objective Data Data 02/27/17 02/28/17 19:00 07:00 Intake Total 720 ml Output Total 1300 ml Balance -580 ml Intake Oral 720 ml Output Urine Total 1300 ml # Bowel Movements 0 Vital Signs Date Time Temp Pulse Resp B/P Pulse Ox O2 Delivery O2 Flow Rate FiO2 02/28/17 08:00 97.2 81 16 99/55 91 02/28/17 07:20 94 Nasal Cannula 3.00 02/28/17 04:00 97.4 80 20 122/78 96 02/28/17 00:00 96.4 78 20 126/74 97 02/27/17 21:36 94 Nasal Cannula 2.00 02/27/17 20:54 78 02/27/17 16:00 97.3 77 16 110/71 94 02/27/17 13:15 94 21 -: 02/28/17 0500 02/28/17 0500 Physical Exam General Appearance: No Acute Distress Eyes Eye Exam: Sclera White Pulmonary Resp Exam: Clear Bilaterally, Breath Sounds Equal, No Distress Cardiology CV Exam: Regular, Normal Sinus Rhythm Gastrointestinal/Abdomen GI Exam: Soft, Non-Tender Integumentary Skin Exam: Clear, Warm Extremeties Extremities Exam: Moderate Edema (right upper extremity.), Pitting Edema Assessment/Plan Discussed Condition With: Patient, Spouse Problem List: (1) CKD (chronic kidney disease) stage 4, GFR 15-29 ml/min Plan: Patient status post right AKA. Patient's renal indices have deteriorated in GFR is now below 15. Given worsening azotemia as well as marginal nutritional status I recommended that we proceed with dialysis if this is the option they wish to proceed with. I discussed with the indications for, alternatives to and risks associated with dialysis as well as PermCath placement and wishes to proceed. Will likely proceed tomorrow. Hold off today in view of relatively low BP. I will give a fluid bolus today. There is still significant edema of the upper extremity that was the site of the failed AV shunt. I will ask Dr. Leonard to evaluate per family request. Dosages of Neurontin and Januvia were adjusted in view of severity of azotemia. Discussed the above with his , patient and also his daughter Iris , on the day of consultation, in [place] [phone] and I discussed patient's current status with her including necessity for dialysis in the not too distant future. (2) Metabolic acidosis Plan: Currently compensated. Continue oral sodium bicarbonate. (3) Hyperkalemia Plan: History of hyperkalemia in the past but not presently. (4) Dialysis AV fistula malfunction (5) Vitamin D deficiency Plan: Vitamin D as ordered. (6) Malnutrition Plan: Agree with nutritional supplementation and patient was encouraged to improve his dietary protein intake. (7) Diabetes Plan: Management per primary care physician. (8) Hypertension Jeremiah Hagan MD Feb 28, 2017 12:32
--- NOTE | 2017-02-28 12:54 | PD.ONC.PN ---
Subjective Subjective Remarks Afebrile overnight. No bleeding. per , stump dressing changed this am and there was healthy tissue seen. Objective Data Date Time Temp Pulse Resp B/P Pulse Ox O2 Delivery O2 Flow Rate FiO2 02/28/17 08:00 97.2 81 16 99/55 91 02/28/17 07:20 94 Nasal Cannula 3.00 02/28/17 04:00 97.4 80 20 122/78 96 02/28/17 00:00 96.4 78 20 126/74 97 02/27/17 21:36 94 Nasal Cannula 2.00 02/27/17 20:54 78 02/27/17 16:00 97.3 77 16 110/71 94 02/27/17 13:15 94 21 02/28/17 02/28/17 02/28/17 07:00 15:00 23:00 Intake Total 240 ml 120 ml Output Total 600 ml Balance -360 ml 120 ml Result Diagram: 02/28/17 0500 02/28/17 0500 Laboratory Results Laboratory Tests Test 02/28/17 02/28/17 05:00 10:30 White Blood Count 20.9 TH/MM3 Red Blood Count 2.42 MIL/MM3 Hemoglobin 7.0 GM/DL Hematocrit 21.5 % Mean Corpuscular Volume 88.8 FL Mean Corpuscular Hemoglobin 29.2 PG Mean Corpuscular Hemoglobin 32.8 % Concent Red Cell Distribution Width 15.2 % Platelet Count 243 TH/MM3 Mean Platelet Volume 9.2 FL Neutrophils (%) (Auto) 91.5 % Lymphocytes (%) (Auto) 2.5 % Monocytes (%) (Auto) 4.3 % Eosinophils (%) (Auto) 1.3 % Basophils (%) (Auto) 0.4 % Neutrophils # (Auto) 19.2 TH/MM3 Lymphocytes # (Auto) 0.5 TH/MM3 Monocytes # (Auto) 0.9 TH/MM3 Eosinophils # (Auto) 0.3 TH/MM3 Basophils # (Auto) 0.1 TH/MM3 CBC Comment AUTO DIFF Differential Total Cells 100 Counted Neutrophils % (Manual) 91 % Band Neutrophils % 2 % Lymphocytes % 3 % Monocytes % 2 % Eosinophils % 1 % Basophils % 1 % Neutrophils # (Manual) 19.4 TH/MM3 Differential Comment FINAL DIFF MANUAL Platelet Estimate NORMAL Platelet Morphology Comment NORMAL Basophilic Stippling FAINT Prothrombin Time 36.6 SEC Prothromb Time International 3.1 RATIO Ratio Sodium Level 141 MEQ/L Potassium Level 4.2 MEQ/L Chloride Level 103 MEQ/L Carbon Dioxide Level 27.8 MEQ/L Anion Gap 10 MEQ/L Blood Urea Nitrogen 51 MG/DL Creatinine 4.74 MG/DL Estimat Glomerular Filtration 12 ML/MIN Rate Random Glucose 83 MG/DL Calcium Level 8.1 MG/DL Blood Type B POSITIVE Antibody Screen NEGATIVE Crossmatch Leukocyte-Reduced Red Blood Cells Blood Bank Comment Administered Medications Medications (Trade) Dose Ordered Sig/[place] Route PRN Reason Start Time Stop Time Status Last Admin Dose Admin Sodium Chloride (NS Flush) 2 ml BID IV FLUSH 02/22/17 21:00 02/28/17 08:34 Acetaminophen/ Hydrocodone Bitart ([place] 10-325 Mg) 1 tab Q4H PRN PO PAIN SCALE 1 TO 7 02/22/17 18:15 02/28/17 09:01 Atenolol (Tenormin) 100 mg BID PO 02/22/17 21:00 02/28/17 08:33 Atorvastatin Calcium (Lipitor) 40 mg HS PO 02/22/17 21:00 02/25/17 21:28 Clonidine (Catapres) 0.1 mg BID PO 02/22/17 21:00 02/28/17 08:33 Diltiazem HCl (Cardizem Cd) 240 mg DAILY PO 02/23/17 09:00 02/28/17 08:33 Sodium Bicarbonate (Sodium Bicarbonate) 650 mg TIDPC PO 02/22/17 18:30 02/28/17 12:30 Pantoprazole Sodium (Protonix) 40 mg DAILY PO 02/23/17 09:00 02/28/17 08:33 Levothyroxine Sodium (Synthroid) 100 mcg DAILY@06 PO 02/23/17 06:00 02/28/17 05:04 Levothyroxine Sodium 75 mcg 75 mcg DAILY@06 PO 02/23/17 06:00 02/28/17 05:04 Piperacillin Sod/ Tazobactam Sod (Zosyn 2.25 Gm Premix) 50 ml @ 100 mls/hr Q8H IV 02/23/17 18:00 02/28/17 08:33 Heparin Sodium (Porcine) (Heparin Inj) 5,000 units Q12HR SQ 02/24/17 09:00 Hold 02/26/17 08:08 Cholecalciferol (Vitamin D3) 5,000 units DAILY PO 02/25/17 09:00 02/28/17 08:33 Loperamide HCl (Imodium) 2 mg Q6H PRN PO DIARRHEA 02/24/17 20:30 02/24/17 20:54 Furosemide (Lasix) 40 mg DAILY PO 02/25/17 09:00 02/28/17 08:33 Betamethasone/ Clotrimazole (Lotrisone Cream) 1 applic Q12HR TOPICAL 02/27/17 09:00 02/28/17 08:34 Gabapentin (Neurontin) 100 mg TID PO 02/28/17 13:00 02/28/17 12:30 Objective Remarks GENERAL: Elderly male, sitting up in bed in [facility]. SKIN: Warm and dry. clean bandages on forearms. HEAD: Atraumatic. Normocephalic. EYES: No injection or drainage. ENT: Mucous membranes pink and moist. NECK: Trachea midline. CARDIOVASCULAR: IRR RESPIRATORY: diminished at bases, scattered rhonchi GASTROINTESTINAL: Abdomen soft, non-tender, nondistended. EXTREMITIES: RLE s/p AKA,. bandage clean NEUROLOGICAL: Awake and alert. Normal speech. Assessment/Plan Problem List: (1) Anemia Status: Acute Plan: -- Likely secondary to acute blood loss compounded by renal failure and chronic illness. --transfuse as needed (2) Coagulopathy Status: Acute Plan: --secondary to consumption of coagulation factors and likely potentiation of the Coumadin effect due to his gangrene and sepsis. Assessment 71y/o male with supratherapeutic INR in a patient with sepsis secondary to gangrene. --history of atrial fibrillation --has been on Warfarin >10 years. 2.5 mg daily six days a week and 2 mg one day a week. This helped maintain his INR at about 2.5. --s/p right [id number] amputation on 02/23/2017. h/o Diabetes Peripheral vascular disease tobaccoism Agent orange exposure Advanced stage chronic kidney failure Hyperlipidemia Gastroesophageal reflux disease Hypertension Hypothyroidism Plan 1. continue vitamin K 2.5mg PO daily 2. monitor INR 3. agree with blood transfusion 4. check fibrinogen Charo Medellin Feb 28, 2017 12:54
[2017-02-28] MEDS ORDERED: VANCOMYCIN INJ 1,000 MG in SODIUM CHLOR 0.9% 250 ML INJ 250 ML IV ONE (14:15)
--- NOTE | 2017-02-28 14:26 | HHI.IDPN ---
Subjective Subjective Remarks Notes reviewed Temps ok Had R MICHAEL last Sunday 02/25 Sleeping a lot since this morning Awakens easily though and answering my questions BP has been running low today Pain is better Tired Cultures reviewed WBC remain elevated in 20K Antibiotics Zosyn Levaquin Lines PIV Past Medical History AFIB Hyperlipidemia Diabetes GERD Hypertension Renal Failure Thyroid Disease Past Surgical History Previous tracheostomy AV fistula in the right upper extremity Allergies: Coded Allergies: No Known Allergies (Unverified , 01/11/17) Objective . Vital Signs Date Time Temp Pulse Resp B/P Pulse Ox O2 Delivery O2 Flow Rate FiO2 02/28/17 13:14 98.6 71 14 89/53 94 02/28/17 12:57 98.0 68 17 91/55 91 02/28/17 12:00 97.1 83 16 98/58 91 02/28/17 08:00 97.2 81 16 99/55 91 02/28/17 07:20 94 Nasal Cannula 3.00 02/28/17 04:00 97.4 80 20 122/78 96 02/28/17 00:00 96.4 78 20 126/74 97 02/27/17 21:36 94 Nasal Cannula 2.00 02/27/17 20:54 78 02/27/17 16:00 97.3 77 16 110/71 94 02/27/17 02/27/17 02/28/17 15:00 23:00 07:00 Intake Total 480 ml 240 ml Output Total 700 ml 600 ml Balance -220 ml -360 ml Intake Oral 480 ml 240 ml Output Urine Total 700 ml 600 ml # Bowel Movements 0 0 . Laboratory Tests Test 02/27/17 02/28/17 04:18 05:00 White Blood Count 21.9 TH/MM3 20.9 TH/MM3 Red Blood Count 2.53 MIL/MM3 2.42 MIL/MM3 Hemoglobin 7.4 GM/DL 7.0 GM/DL Hematocrit 22.6 % 21.5 % Mean Corpuscular Volume 89.1 FL 88.8 FL Mean Corpuscular Hemoglobin 29.1 PG 29.2 PG Mean Corpuscular Hemoglobin 32.6 % 32.8 % Concent Red Cell Distribution Width 15.3 % 15.2 % Platelet Count 262 TH/MM3 243 TH/MM3 Mean Platelet Volume 9.1 FL 9.2 FL Neutrophils (%) (Auto) 92.4 % 91.5 % Lymphocytes (%) (Auto) 2.4 % 2.5 % Monocytes (%) (Auto) 4.2 % 4.3 % Eosinophils (%) (Auto) 0.7 % 1.3 % Basophils (%) (Auto) 0.3 % 0.4 % Neutrophils # (Auto) 20.2 TH/MM3 19.2 TH/MM3 Lymphocytes # (Auto) 0.5 TH/MM3 0.5 TH/MM3 Monocytes # (Auto) 0.9 TH/MM3 0.9 TH/MM3 Eosinophils # (Auto) 0.2 TH/MM3 0.3 TH/MM3 Basophils # (Auto) 0.1 TH/MM3 0.1 TH/MM3 CBC Comment AUTO DIFF AUTO DIFF Differential Comment AUTO DIFF FINAL DIFF CONFIRMED MANUAL Platelet Estimate NORMAL NORMAL Platelet Morphology Comment NORMAL NORMAL Stomatocytes 1+ Differential Total Cells 100 Counted Neutrophils % (Manual) 91 % Band Neutrophils % 2 % Lymphocytes % 3 % Monocytes % 2 % Eosinophils % 1 % Basophils % 1 % Neutrophils # (Manual) 19.4 TH/MM3 Basophilic Stippling FAINT Laboratory Tests Test 02/27/17 02/28/17 04:18 05:00 Sodium Level 139 MEQ/L 141 MEQ/L Potassium Level 3.7 MEQ/L 4.2 MEQ/L Chloride Level 102 MEQ/L 103 MEQ/L Carbon Dioxide Level 27.1 MEQ/L 27.8 MEQ/L Anion Gap 10 MEQ/L 10 MEQ/L Blood Urea Nitrogen 51 MG/DL 51 MG/DL Creatinine 4.17 MG/DL 4.74 MG/DL Estimat Glomerular Filtration 14 ML/MIN 12 ML/MIN Rate Random Glucose 74 MG/DL 83 MG/DL Calcium Level 8.6 MG/DL 8.1 MG/DL Imaging Last Impressions Foot X-Ray 02/22/17 0000 Signed Impressions: Service Date/Time: Wednesday, February 22, 2017 17:46 - CONCLUSION: Soft tissues extensive soft tissue emphysema, mottled in appearance very concerning for infection with gas-forming organism. No obvious osseous destruction is seen to suggest osteomyelitis. Abhi Seo MD Physical Exam GENERAL: Opens eyes when stimulated, answering my questions SKIN: Cool and dry. Looks pale and sallow. has a lot of purpuric lesions in UE. No generalized rash HEENT: [place] conjunctivae. No scleral icterus. No injection or drainage. Moist oral mucosa. NECK: Supple, nontender, no meningeal signs. CARDIOVASCULAR: Regular rate and rhythm without murmurs, gallops, or rubs. RESPIRATORY: Clear to auscultation. Breath sounds equal bilaterally. No wheezes , rales, or rhonchi. GASTROINTESTINAL: Abdomen soft, non-tender, nondistended. No hepato-splenomegaly , or palpable masses. No guarding. MUSCULOSKELETAL: LLE without clubbing, cyanosis, or edema. No joint tenderness, effusion. S/P RAKA with dry dressing. NEUROLOGICAL: Lethargic, but easily arousable and interactive PSYCH: Cooperative, LINE: PIV with no evidence of infection Assessment & Plan Remarks IMPRESSION Lethargy, persistent leukocytosis, low BP - ?new infection Sepsis with proteus and Enterococcus due to wet gangrene R foot - repeat BC negative DFI, PVD with wet gangrene - S/P R AKA (2 staged) - foot C/S Proteus, Enterococcus and PSAE Renal failure RECOMMENDATION BC UA and C/S CXR Give dose of Vanco Patient to get 2 units PRBC per RN Continue Zosyn and Levaquin Add Diflucan Follow C/S Monitor progress D/W RN May need closer monitoring if low BP does not improve with transfusion Connie Cerna MD Feb 28, 2017 14:25
[2017-02-28] MEDS ORDERED: FLUCONAZOLE 400 MG PREMIX BAG 200 ML IV SCH (15:00)
--- NOTE | 2017-02-28 15:01 | HHI.PR ---
Subjective Remarks resting quietly s/p aka nursing reports decreased pulse ox while asleep pts hgb low also 7 and inr continues to rise at 3 without anticoag Objective Vital Signs Date Time Temp Pulse Resp B/P Pulse Ox O2 Delivery O2 Flow Rate FiO2 02/28/17 14:56 99/56 02/28/17 14:56 99/56 02/28/17 13:14 98.6 71 14 89/53 94 02/28/17 12:57 98.0 68 17 91/55 91 02/28/17 12:00 97.1 83 16 98/58 91 02/28/17 08:00 97.2 81 16 99/55 91 02/28/17 07:20 94 Nasal Cannula 3.00 02/28/17 04:00 97.4 80 20 122/78 96 02/28/17 00:00 96.4 78 20 126/74 97 02/27/17 21:36 94 Nasal Cannula 2.00 02/27/17 20:54 78 02/27/17 16:00 97.3 77 16 110/71 94 I/O 02/27/17 02/27/17 02/27/17 02/28/17 02/28/17 02/28/17 07:00 15:00 23:00 07:00 15:00 23:00 Intake Total 0 ml 480 ml 240 ml 500 ml Output Total 150 ml 700 ml 600 ml 150 ml Balance -150 ml -220 ml -360 ml 350 ml Intake Oral 0 ml 480 ml 240 ml 360 ml Packed Cells 140 ml Output Urine Total 150 ml 700 ml 600 ml 150 ml # Bowel Movements 0 0 0 Result Diagram: 02/28/17 0500 02/28/17 0500 Procedures 02/23 BKA of right leg 02/25 AKA r leg Objective Remarks CONSTITUTIONAL/GENERAL: This is an adequately nourished patient, in no apparent distress. TUBES/LINES/DRAINS: SKIN: No jaundice, rashes, or lesions. Ecchymoses on upper extremities. No wounds seen anteriorly. Skin temperature appropriate. Not diaphoretic. HEAD: Atraumatic. Normocephalic. EYES: Pupils equal and round and reactive. Extraocular motions intact. No scleral icterus. No injection or drainage. Fundi not examined. ENT: Hearing grossly normal. Nose without bleeding or purulent drainage. Throat without visible erythema, exudates, masses, or lesions. NECK: Trachea midline. Supple, nontender. No palpable thyroid enlargement or nodularity. CARDIOVASCULAR: Regular rate and rhythm without murmurs, gallops, or rubs. No JVD. Peripheral pulses symmetric. RESPIRATORY/CHEST: Symmetric, unlabored respirations. Clear to auscultation. Breath sounds equal bilaterally. No wheezes, rales, or rhonchi. GASTROINTESTINAL: Abdomen soft, non-tender, nondistended. No hepato-splenomegaly , or palpable masses. No guarding. Bowel sounds present. GENITOURINARY: Without palpable bladder distension. Aguilar catheter in place. MUSCULOSKELETAL: Extremities without clubbing, cyanosis, or edema. No joint tenderness or effusion noted. No calf tenderness. No mottling or clubbing recent RAKA BANDAGED. LYMPHATICS: No palpable cervical or supraclavicular adenopathy. NEUROLOGICAL: Awake and alert. Motor and sensory grossly within normal limits. Follows commands. Cognitively sharp. Moves all extremities. PSYCHIATRIC: No obvious anxiety/depression. no apparent hallucinations or other psychotic thought process. Medications and IVs Current Medications Medications (Trade) Dose Ordered Sig/[place] Route PRN Reason Start Time Stop Time Status Last Admin Dose Admin Sodium Chloride (NS Flush) 2 ml UNSCH PRN IV FLUSH FLUSH AFTER USING IV ACCESS 02/22/17 18:15 Sodium Chloride (NS Flush) 2 ml BID IV FLUSH 02/22/17 21:00 02/28/17 08:34 Ondansetron HCl (Zofran Inj) 4 mg Q6H PRN IVP NAUSEA OR VOMITING 02/22/17 18:15 Naloxone HCl (Narcan Inj) 0.4 mg UNSCH PRN IV SEE LABEL COMMENTS 02/22/17 18:15 Acetaminophen/ Hydrocodone Bitart ([place] 10-325 Mg) 1 tab Q4H PRN PO PAIN SCALE 1 TO 7 02/22/17 18:15 02/28/17 09:01 Atenolol (Tenormin) 100 mg BID PO 02/22/17 21:00 02/28/17 08:33 Atorvastatin Calcium (Lipitor) 40 mg HS PO 02/22/17 21:00 02/25/17 21:28 Clonidine (Catapres) 0.1 mg BID PO 02/22/17 21:00 02/28/17 08:33 Diltiazem HCl (Cardizem Cd) 240 mg DAILY PO 02/23/17 09:00 02/28/17 08:33 Sodium Bicarbonate (Sodium Bicarbonate) 650 mg TIDPC PO 02/22/17 18:30 02/28/17 12:30 Pantoprazole Sodium (Protonix) 40 mg DAILY PO 02/23/17 09:00 02/28/17 08:33 Levothyroxine Sodium (Synthroid) 100 mcg DAILY@06 PO 02/23/17 06:00 02/28/17 05:04 Levothyroxine Sodium 75 mcg 75 mcg DAILY@06 PO 02/23/17 06:00 02/28/17 05:04 Piperacillin Sod/ Tazobactam Sod (Zosyn 2.25 Gm Premix) 50 ml @ 100 mls/hr Q8H IV 02/23/17 18:00 02/28/17 08:33 Heparin Sodium (Porcine) (Heparin Inj) 5,000 units Q12HR SQ 02/24/17 09:00 Hold 02/26/17 08:08 Dextrose (D50w (Vial) Inj) 25 ml UNSCH PRN IV PUSH HYPOGLYCEMIA-SEE COMMENTS 02/24/17 11:45 Glucagon (Glucagon Inj) 1 mg UNSCH PRN OTHER HYPOGLYCEMIA-SEE COMMENTS 02/24/17 11:45 Cholecalciferol (Vitamin D3) 5,000 units DAILY PO 02/25/17 09:00 02/28/17 08:33 Loperamide HCl (Imodium) 2 mg Q6H PRN PO DIARRHEA 02/24/17 20:30 02/24/17 20:54 Furosemide (Lasix) 40 mg DAILY PO 02/25/17 09:00 02/28/17 08:33 Betamethasone/ Clotrimazole (Lotrisone Cream) 1 applic Q12HR TOPICAL 02/27/17 09:00 02/28/17 08:34 Phytonadione (Mephyton) 2.5 mg DAILY PO 03/01/17 09:00 Gabapentin (Neurontin) 100 mg TID PO 02/28/17 13:00 02/28/17 12:30 Sitagliptin Phosphate (Januvia) 25 mg DAILY PO 03/01/17 09:00 Miscellaneous 1 ea 1 ea UNSCH PRN OTHER SEE LABEL COMMENTS 02/28/17 12:00 Levofloxacin/ Dextrose 50 ml @ 100 mls/hr Q48H IV 03/01/17 18:00 Vancomycin HCl 1000 mg/Sodium Chloride 250 ml @ 250 mls/hr ONCE ONCE IV 02/28/17 14:15 02/28/17 15:14 Fluconazole/ Sodium Chloride (Diflucan 400 Mg Premix Bag) 200 ml @ 100 mls/hr Q24H IV 02/28/17 15:00 Assessment and Plan Problem List: (1) Unilateral AKA Status: Acute (2) Elevated INR Status: Acute Plan: reconsult heme onc re coagulopathy (3) Anemia Status: Acute Plan: transfuse two units prbc Assessment and Plan recent r aka having phantom pain improved with neurontin rash back add lotrisone Problem Qualifiers (1) Unilateral AKA: Qualified Code: Z89.611 - Unilateral AKA, right BirdAntoni Jitendra MACEDO Feb 28, 2017 15:01
--- NOTE | 2017-02-28 15:47 | RADRPT ---
EXAM DATE/TIME: 02/28/2017 14:34 [facility] COMPARISON: CHEST SINGLE AP, November 02, 2014, 11:13. INDICATIONS : Leukocytosis, weakness, short of breath MEDICAL HISTORY : Diabetes mellitus type II. SURGICAL HISTORY : right leg amputation ENCOUNTER: Subsequent ACUITY: 1 day PAIN SCORE: Non-responsive. LOCATION: Bilateral chest FINDINGS: There is mild haziness to both lung bases bilaterally. Heart and mediastinum are unremarkable for mayito hnique. CONCLUSION: Possible mild case of pulmonary edema. Pérez Eli MD on February 28, 2017 at 15:45 Board Certified Radiologist. This report was verified electronically.
[2017-02-28 17:44] LABS: APTT (PATIENT) 56.3 SEC (24.3-30.1); PROTHROMBIN TIME - PATIENT 34.3 SEC (9.8-11.6)
--- NOTE | 2017-02-28 17:50 | PD.CARD.PN ---
Subjective Subjective Remarks Somnolent, got Narco this AM, no CP or SOB Objective Medications Current Medications Medications (Trade) Dose Ordered Sig/Lib[place] Route Start Time Stop Time Status Last Admin (NS Flush) 2 ml UNSCH PRN IV FLUSH 02/22/17 18:15 (NS Flush) 2 ml BID IV FLUSH 02/22/17 21:00 02/28/17 08:34 (Zofran Inj) 4 mg Q6H PRN IVP 02/22/17 18:15 (Narcan Inj) 0.4 mg UNSCH PRN IV 02/22/17 18:15 ([place] 10-325 Mg) 1 tab Q4H PRN PO 02/22/17 18:15 02/28/17 09:01 (Tenormin) 100 mg BID PO 02/22/17 21:00 02/28/17 08:33 (Lipitor) 40 mg HS PO 02/22/17 21:00 02/25/17 21:28 (Catapres) 0.1 mg BID PO 02/22/17 21:00 02/28/17 08:33 (Cardizem Cd) 240 mg DAILY PO 02/23/17 09:00 02/28/17 08:33 (Sodium Bicarbonate) 650 mg TIDPC PO 02/22/17 18:30 02/28/17 12:30 (Protonix) 40 mg DAILY PO 02/23/17 09:00 02/28/17 08:33 (Synthroid) 100 mcg DAILY@06 PO 02/23/17 06:00 02/28/17 05:04 Levothyroxine Sodium 75 mcg 75 mcg DAILY@06 PO 02/23/17 06:00 02/28/17 05:04 (Zosyn 2.25 Gm Premix) 50 ml @ 100 mls/hr Q8H IV 02/23/17 18:00 02/28/17 08:33 (Heparin Inj) 5,000 units Q12HR SQ 02/24/17 09:00 Hold 02/26/17 08:08 (D50w (Vial) Inj) 25 ml UNSCH PRN IV PUSH 02/24/17 11:45 (Glucagon Inj) 1 mg UNSCH PRN OTHER 02/24/17 11:45 (Vitamin D3) 5,000 units DAILY PO 02/25/17 09:00 02/28/17 08:33 (Imodium) 2 mg Q6H PRN PO 02/24/17 20:30 02/24/17 20:54 (Lasix) 40 mg DAILY PO 02/25/17 09:00 02/28/17 08:33 (Lotrisone Cream) 1 applic Q12HR TOPICAL 02/27/17 09:00 02/28/17 08:34 (Mephyton) 2.5 mg DAILY PO 03/01/17 09:00 (Neurontin) 100 mg TID PO 02/28/17 13:00 02/28/17 12:30 (Januvia) 25 mg DAILY PO 03/01/17 09:00 Miscellaneous 1 ea 1 ea UNSCH PRN OTHER 02/28/17 12:00 Levofloxacin/ Dextrose 50 ml @ 100 mls/hr Q48H IV 03/01/17 18:00 (Diflucan 400 Mg Premix Bag) 200 ml @ 100 mls/hr Q24H IV 02/28/17 15:00 Vital Signs / I&O Vital Signs Date Time Temp Pulse Resp B/P Pulse Ox O2 Delivery O2 Flow Rate FiO2 02/28/17 17:30 96.9 85 16 96/55 94 02/28/17 16:00 97.8 73 16 95/54 94 02/28/17 14:56 99/56 02/28/17 14:56 99/56 02/28/17 13:14 98.6 71 14 89/53 94 02/28/17 12:57 98.0 68 17 91/55 91 02/28/17 12:00 97.1 83 16 98/58 91 02/28/17 08:00 97.2 81 16 99/55 91 02/28/17 07:20 94 Nasal Cannula 3.00 02/28/17 04:00 97.4 80 20 122/78 96 02/28/17 00:00 96.4 78 20 126/74 97 02/27/17 21:36 94 Nasal Cannula 2.00 02/27/17 20:54 78 I/O 02/27/17 02/27/17 02/27/17 02/28/17 02/28/17 02/28/17 07:00 15:00 23:00 07:00 15:00 23:00 Intake Total 0 ml 480 ml 240 ml 500 ml 250 ml Output Total 150 ml 700 ml 600 ml 150 ml Balance -150 ml -220 ml -360 ml 350 ml 250 ml Intake Oral 0 ml 480 ml 240 ml 360 ml Packed Cells 140 ml Other 250 ml Output Urine Total 150 ml 700 ml 600 ml 150 ml # Bowel Movements 0 0 0 Physical Exam GENERAL: Somnolent,in NAD SKIN: Warm and dry. HEAD: Normocephalic. EYES: No scleral icterus. No injection or drainage. NECK: Supple, trachea midline. No JVD or lymphadenopathy. CARDIOVASCULAR: Irreg rhythm without murmurs, gallops, or rubs. RESPIRATORY: Breath sounds equal bilaterally. No accessory muscle use. GASTROINTESTINAL: Abdomen soft, non-tender, nondistended. MUSCULOSKELETAL: No cyanosis, or edema, s/p R AKA Laboratory Laboratory Tests Test 02/28/17 02/28/17 05:00 10:30 White Blood Count 20.9 TH/MM3 Red Blood Count 2.42 MIL/MM3 Hemoglobin 7.0 GM/DL Hematocrit 21.5 % Mean Corpuscular Volume 88.8 FL Mean Corpuscular Hemoglobin 29.2 PG Mean Corpuscular Hemoglobin 32.8 % Concent Red Cell Distribution Width 15.2 % Platelet Count 243 TH/MM3 Mean Platelet Volume 9.2 FL Neutrophils (%) (Auto) 91.5 % Lymphocytes (%) (Auto) 2.5 % Monocytes (%) (Auto) 4.3 % Eosinophils (%) (Auto) 1.3 % Basophils (%) (Auto) 0.4 % Neutrophils # (Auto) 19.2 TH/MM3 Lymphocytes # (Auto) 0.5 TH/MM3 Monocytes # (Auto) 0.9 TH/MM3 Eosinophils # (Auto) 0.3 TH/MM3 Basophils # (Auto) 0.1 TH/MM3 CBC Comment AUTO DIFF Differential Total Cells 100 Counted Neutrophils % (Manual) 91 % Band Neutrophils % 2 % Lymphocytes % 3 % Monocytes % 2 % Eosinophils % 1 % Basophils % 1 % Neutrophils # (Manual) 19.4 TH/MM3 Differential Comment FINAL DIFF MANUAL Platelet Estimate NORMAL Platelet Morphology Comment NORMAL Basophilic Stippling FAINT Prothrombin Time 36.6 SEC Prothromb Time International 3.1 RATIO Ratio Sodium Level 141 MEQ/L Potassium Level 4.2 MEQ/L Chloride Level 103 MEQ/L Carbon Dioxide Level 27.8 MEQ/L Anion Gap 10 MEQ/L Blood Urea Nitrogen 51 MG/DL Creatinine 4.74 MG/DL Estimat Glomerular Filtration 12 ML/MIN Rate Random Glucose 83 MG/DL Calcium Level 8.1 MG/DL Blood Type B POSITIVE Antibody Screen NEGATIVE Crossmatch Leukocyte-Reduced Red Blood Cells Blood Bank Comment Imaging Last Impressions Chest X-Ray 02/28/17 0000 Signed Impressions: Service Date/Time: Tuesday, February 28, 2017 14:34 - CONCLUSION: Possible mild case of pulmonary edema. Pérez Eli MD Foot X-Ray 02/22/17 0000 Signed Impressions: Service Date/Time: Wednesday, February 22, 2017 17:46 - CONCLUSION: Soft tissues extensive soft tissue emphysema, mottled in appearance very concerning for infection with gas-forming organism. No obvious osseous destruction is seen to suggest osteomyelitis. Abhi Seo MD Assessment and Plan Problem List: (1) PVD (peripheral vascular disease) (2) Unilateral AKA (3) Atrial fibrillation (4) Coagulopathy (5) Acute renal failure superimposed on stage 4 chronic kidney disease (6) Diabetes (7) Hypertension Assessment and Plan A fib rate controlled. Hematology eval planned for coagulopathy (INR high off anticoagulants). Hold pain meds if possible. Monitor renal fx. Increase activity , start rehab as tolerated. Problem Qualifiers (1) Unilateral AKA: Qualified Code: Z89.611 - Unilateral AKA, right David Greenberg MD Feb 28, 2017 17:50
[2017-02-28] MEDS: ATORVASTATIN 40 MG TAB PO SCH (19:59)
[2017-02-28] MEDS ORDERED: VANCOMYCIN 1,000 MG/NS 250 ML IV ONE ×2 (21:00)
[2017-02-28 21:17] LABS: BLOOD GAS BASE EXCESS -1.6 mmol/L (-2-2); BLOOD GAS CARBOXYHEMOGLOBIN 1.6 % (0-4); BLOOD GAS HCO3 27 mmol/L (22-26); BLOOD GAS METHEMOGLOBIN 0.9 % (0-2); BLOOD GAS O2 HGB SATURATION 73 % (90-100); BLOOD GAS PCO2 84 mmHg (38-42); BLOOD GAS PO2 48 mmHg (61-120); BLOOD GAS TOTAL HGB 11.7 G/DL (12.0-16.0); TEMP CORR TO 98.6
[2017-02-28] MEDS ORDERED: ETOMIDATE 20 MG/10 ML VIAL ONE (21:24)
[2017-02-28 21:29] LABS: CRITICAL VALUE YES; DRAW SITE LT BRACHIAL; FIO2 100 %; LITER FLOW 15 L/M; NUMBER OF ARTERIAL PUNCTURES 1; ULNAR PULSE PRESENT
[2017-02-28 21:30] LABS: STAT YES
--- NOTE | 2017-02-28 22:13 | RADRPT ---
EXAM DATE/TIME: 02/28/2017 21:45 [facility] COMPARISON: CHEST SINGLE AP, November 02, 2014, 11:13. INDICATIONS : Post intubation and central line. MEDICAL HISTORY : None. SURGICAL HISTORY : None. ENCOUNTER: Initial ACUITY: 1 day PAIN SCORE: 10/10 LOCATION: Bilateral chest FINDINGS: Mild consolidation and small effusion seen at the left lung base. No pneumothorax seen. There is mild cardiomegaly. Patient is intubated. Endotracheal tube tip is approximately 5 cm above the lidia. There is a right internal jugular central venous catheter with tip in the superior vena cava. CONCLUSION: 1. Mild consolidation and small effusion of the left lung base. 2. Right IJ line with tip in the superior vena cava and endotracheal tube tip about 5 cm above the ca maged. No pneumothorax or other acute complication demonstrated. Zen Leiva MD on February 28, 2017 at 22:10 Board Certified Radiologist. This report was verified electronically.
--- NOTE | 2017-02-28 22:13 | PD.CONS ---
HPI Service Critical Care Medicine Consult Requested By Primary Care Physician Antoni Bird DO History of Present Illness 71-year-old male with history of atrial fibrillation, and poorly controlled diabetes admitted with complaint of generalized weakness. Patient has had a wound on the right foot for a reported 3-4 years. Per model maker patient has evidence of gangrene and underwent amputation due to osteomyelitis. Patient is nonambulatory at baseline. He was on a regular surgical floor without a rapid response was called for decreased responsiveness and hypercapnic respiratory failure with severe respiratory acidosis. Review of Systems ROS Unable to obtain patient is sedated and intubated Past Family Social History Allergies: Coded Allergies: No Known Allergies (Unverified , 01/11/17) Past Medical History Atrial fibrillation Hyperlipidemia Diabetes mellitus GERD Hypertension Renal Failure Thyroid Disease Past Surgical History Tracheostomy 2 years ago BKA Reported Medications Reported Meds & Active Scripts Active Reported Clonidine (Clonidine HCl) 0.1 Mg Tab 0.1 Mg PO BID Sodium Bicarbonate 650 Mg Tab 650 Mg PO TIDPC Vitamin D (Cholecalciferol) 400 Unit Tab DAILY Atorvastatin (Atorvastatin Calcium) 40 Mg Tab 40 Mg PO HS Atenolol 100 Mg Tab 100 Mg PO BID Januvia (Sitagliptin Phosphate) 50 Mg Tab 50 Mg PO DAILY Diltiazem CD 24 HR 240 Mg Caper 240 Mg PO DAILY Levothyroxine (Levothyroxine Sodium) 175 Mcg Tab 175 Mcg PO DAILY Nexium (Esomeprazole DR) 40 Mg Capdr 40 Mg PO DAILY Active Ordered Medications Current Medications Medications (Trade) Dose Ordered Sig/[place] Route PRN Reason Start Time Stop Time Status Last Admin Dose Admin Sodium Chloride (NS Flush) 2 ml UNSCH PRN IV FLUSH FLUSH AFTER USING IV ACCESS 02/22/17 18:15 Sodium Chloride (NS Flush) 2 ml BID IV FLUSH 02/22/17 21:00 02/28/17 19:54 Ondansetron HCl (Zofran Inj) 4 mg Q6H PRN IVP NAUSEA OR VOMITING 02/22/17 18:15 Naloxone HCl (Narcan Inj) 0.4 mg UNSCH PRN IV SEE LABEL COMMENTS 02/22/17 18:15 Acetaminophen/ Hydrocodone Bitart ([place] 10-325 Mg) 1 tab Q4H PRN PO PAIN SCALE 1 TO 7 02/22/17 18:15 02/28/17 09:01 Atenolol (Tenormin) 100 mg BID PO 02/22/17 21:00 02/28/17 08:33 Atorvastatin Calcium (Lipitor) 40 mg HS PO 02/22/17 21:00 02/28/17 19:59 Clonidine (Catapres) 0.1 mg BID PO 02/22/17 21:00 02/28/17 08:33 Diltiazem HCl (Cardizem Cd) 240 mg DAILY PO 02/23/17 09:00 02/28/17 08:33 Sodium Bicarbonate (Sodium Bicarbonate) 650 mg TIDPC PO 02/22/17 18:30 02/28/17 12:30 Pantoprazole Sodium (Protonix) 40 mg DAILY PO 02/23/17 09:00 02/28/17 08:33 Levothyroxine Sodium (Synthroid) 100 mcg DAILY@06 PO 02/23/17 06:00 02/28/17 05:04 Levothyroxine Sodium (Synthroid) 75 mcg DAILY@06 PO 02/23/17 06:00 02/28/17 05:04 Heparin Sodium (Porcine) (Heparin Inj) 5,000 units Q12HR SQ 02/24/17 09:00 Hold 02/26/17 08:08 Dextrose (D50w (Vial) Inj) 25 ml UNSCH PRN IV PUSH HYPOGLYCEMIA-SEE COMMENTS 02/24/17 11:45 Glucagon (Glucagon Inj) 1 mg UNSCH PRN OTHER HYPOGLYCEMIA-SEE COMMENTS 02/24/17 11:45 Cholecalciferol (Vitamin D3) 5,000 units DAILY PO 02/25/17 09:00 02/28/17 08:33 Loperamide HCl (Imodium) 2 mg Q6H PRN PO DIARRHEA 02/24/17 20:30 02/24/17 20:54 Furosemide (Lasix) 40 mg DAILY PO 02/25/17 09:00 02/28/17 08:33 Betamethasone/ Clotrimazole (Lotrisone Cream) 1 applic Q12HR TOPICAL 02/27/17 09:00 02/28/17 20:02 Phytonadione (Mephyton) 2.5 mg DAILY PO 03/01/17 09:00 Gabapentin (Neurontin) 100 mg TID PO 02/28/17 13:00 02/28/17 18:15 Sitagliptin Phosphate (Januvia) 25 mg DAILY PO 03/01/17 09:00 Miscellaneous 1 ea 1 ea UNSCH PRN OTHER SEE LABEL COMMENTS 02/28/17 12:00 Levofloxacin/ Dextrose 50 ml @ 100 mls/hr Q48H IV 03/01/17 18:00 Fluconazole/ Sodium Chloride 100 ml @ 100 mls/hr Q24H IV 02/28/17 22:00 02/28/17 22:31 Piperacillin Sod/ Tazobactam Sod 50 ml @ 100 mls/hr Q8H IV 02/28/17 23:00 03/01/17 00:57 Midazolam HCl 100 ml @ 0 mls/hr TITRATE IV 02/28/17 22:15 02/28/17 22:31 Fentanyl Citrate 250 ml @ 0 mls/hr TITRATE IV 02/28/17 22:15 02/28/17 22:32 Sodium Chloride (NS 1000 ml Inj) 1,000 ml @ 150 mls/hr Q6H40M IV 03/01/17 00:45 Family History Noncontributory Social History Unable to obtain Physical Exam Vital Signs Vital Signs Date Time Temp Pulse Resp B/P Pulse Ox O2 Delivery O2 Flow Rate FiO2 02/28/17 21:23 100 100 02/28/17 21:03 65 15.00 100 02/28/17 17:48 98.3 72 14 100/61 96 02/28/17 17:30 96.9 85 16 96/55 94 02/28/17 16:00 97.8 73 16 95/54 94 02/28/17 14:56 99/56 02/28/17 14:56 99/56 02/28/17 13:14 98.6 71 14 89/53 94 02/28/17 12:57 98.0 68 17 91/55 91 02/28/17 12:00 97.1 83 16 98/58 91 02/28/17 08:00 97.2 81 16 99/55 91 02/28/17 07:20 94 Nasal Cannula 3.00 02/28/17 04:00 97.4 80 20 122/78 96 02/28/17 00:00 96.4 78 20 126/74 97 Physical Exam GENERAL: Elderly looking man SKIN: Warm and dry. HEAD: Normocephalic. EYES: No scleral icterus. No injection or drainage. NECK: Supple, trachea midline. No JVD or lymphadenopathy. CARDIOVASCULAR: Regular rate and rhythm without murmurs, gallops, or rubs. RESPIRATORY: Breath sounds equal bilaterally. No accessory muscle use. GASTROINTESTINAL: Abdomen soft, non-tender, nondistended. MUSCULOSKELETAL: No cyanosis, or edema. BACK: Nontender without obvious deformity. No CVA tenderness. EXTREMITIES: Status post BKA, stump without signs of infection or bleeding Laboratory Laboratory Tests Test 02/28/17 02/28/17 02/28/17 02/28/17 05:00 10:30 17:18 21:06 White Blood Count 20.9 Red Blood Count 2.42 Hemoglobin 7.0 Hematocrit 21.5 Mean Corpuscular Volume 88.8 Mean Corpuscular Hemoglobin 29.2 Mean Corpuscular Hemoglobin 32.8 Concent Red Cell Distribution Width 15.2 Platelet Count 243 Mean Platelet Volume 9.2 Neutrophils (%) (Auto) 91.5 Lymphocytes (%) (Auto) 2.5 Monocytes (%) (Auto) 4.3 Eosinophils (%) (Auto) 1.3 Basophils (%) (Auto) 0.4 Neutrophils # (Auto) 19.2 Lymphocytes # (Auto) 0.5 Monocytes # (Auto) 0.9 Eosinophils # (Auto) 0.3 Basophils # (Auto) 0.1 CBC Comment AUTO DIFF Differential Total Cells 100 Counted Neutrophils % (Manual) 91 Band Neutrophils % 2 Lymphocytes % 3 Monocytes % 2 Eosinophils % 1 Basophils % 1 Neutrophils # (Manual) 19.4 Differential Comment FINAL DIFF MANUAL Platelet Estimate NORMAL Platelet Morphology Comment NORMAL Basophilic Stippling FAINT Prothrombin Time 36.6 34.3 Prothromb Time International 3.1 3.0 Ratio Sodium Level 141 Potassium Level 4.2 Chloride Level 103 Carbon Dioxide Level 27.8 Anion Gap 10 Blood Urea Nitrogen 51 Creatinine 4.74 Estimat Glomerular Filtration 12 Rate Random Glucose 83 Calcium Level 8.1 Blood Type B POSITIVE Antibody Screen NEGATIVE Crossmatch Leukocyte-Reduced Red Blood Cells Blood Bank Comment Activated Partial 56.3 Thromboplast Time Fibrinogen 460 Blood Gas Puncture Site LT BRACHIAL Blood Gas Patient Temperature 98.6 Blood Gas HCO3 27 Blood Gas Base Excess -1.6 Blood Gas Oxygen Saturation 73 Arterial Blood pH 7.13 Arterial Blood Partial 84 Pressure CO2 Arterial Blood Partial 48 Pressure O2 Arterial Blood Oxygen Content 12.0 Arterial Blood 1.6 Carboxyhemoglobin Arterial Blood Methemoglobin 0.9 Blood Gas Hemoglobin 11.7 Oxygen Delivery Device Non-Rebreathing Mask Blood Gas Liter Flow 15 Blood Gas Inspired Oxygen 100 Date/Time Procedure Status Source Growth 02/28/17 17:15 Aerobic Blood Culture Received Blood Peripheral Pending 02/28/17 17:15 Anaerobic Blood Culture Received Blood Peripheral Pending 02/24/17 04:11 Aerobic Blood Culture - Preliminary Resulted Blood Peripheral NO GROWTH IN 4 DAYS 02/24/17 04:11 Anaerobic Blood Culture - Preliminary Resulted Blood Peripheral NO GROWTH IN 4 DAYS Result Diagram: 02/28/17 0500 02/28/17 0500 Assessment and Plan Assessment and Plan Respiratory failure - Hypercapnic - Possible narcotic effect - Intubated in the ICU - Mechanical ventilation - Monitor ABG Melvin Gangrene - Status post BKA - Antibiotics per ID - Follow-up cultures Atrial fibrillation - Rate controlled - Cardiology follow-up appreciated - Diltiazem - Atenolol Diabetes mellitus - Insulin sliding scale GERD - PPI Hypertension - Clonidine - Lasix - Atenolol Renal Failure - Monitor urine - Monitor electrolytes - Monitor creatinine Thyroid Disease - Levothyroxine Dyslipidemia - Atorvastatin Supratherapeutic INR - Management per hematology DVT GI prophylaxis - Teds SCDs - Monitor INR - PPI Critical Care: The total critical care time was 35 minutes. Time to perform other separately billable procedures was not included in the critical care time. Beto Rice MD Feb 28, 2017 22:13
--- NOTE | 2017-02-28 22:14 | PD.PROCEDR ---
Procedure Note Procedure Endotracheal Intubation A time-out was completed verifying correct patient, procedure, site, positioning , and special equipment if applicable. The patient was placed in a flat position. Sedation was obtained using Etomidate 20mg. The patient was easily ventilated using an ambu bag. The [employer]/ MAC 4 BLADE was used and inserted into the oropharynx at which time there was a Grade 1 view of the vocal cords. A 8-ukrainian endotracheal tube was inserted and visualized going through the vocal cords. The stylette was removed. Colorimetric change was visualized on the CO2 meter. Breath sounds were heard in both lung guerrero equally. The endotracheal tube was placed at 23 cm, measured at the teeth. A chest x-ray was ordered to assess for pneumothorax and verify endotrachealtube placement. Estimated Blood Loss: 0 The patient tolerated the procedure well and there were no complications. Beto Rice MD Feb 28, 2017 22:14
[2017-02-28] MEDS ORDERED: MIDAZOLAM 100 MG/ML INJ 100 ML IV SCH (22:15)
[2017-02-28] MEDS ORDERED: fentaNYL DRIP 250 ML IV SCH (22:15)
--- NOTE | 2017-02-28 22:15 | PD.PROCEDR ---
Procedure Note Procedure A time-out was completed verifying correct patient, procedure, site, positioning , and special equipment if applicable. The patient was placed in a dependent position appropriate for central line placement based on the vein to be cannulated. The patients right neck was prepped and draped in sterile fashion. 1% Lidocaine was used to anesthetize the surrounding skin area. A triple lumen 9 -[place] Cordis catheter was introduced into the the internal jugular vein using the Seldinger technique and under ultrasound guidance. The catheter was threaded smoothly over the guide wire and appropriate blood return was obtained. Each lumen of the catheter was evacuated of air and flushed with sterile saline. The catheter was then sutured in place to the skin and a sterile dressing applied. Perfusion to the extremity distal to the point of catheter insertion was checked and found to be adequate. Estimated Blood Loss: 1ml The patient tolerated the procedure well and there were no complications. Beto Rice MD Feb 28, 2017 22:15
[2017-02-28 22:21] LABS: BLOOD GAS BASE EXCESS -1.5 mmol/L (-2-2); BLOOD GAS CARBOXYHEMOGLOBIN 1.6 % (0-4); BLOOD GAS HCO3 25 mmol/L (22-26); BLOOD GAS O2 HGB SATURATION 97 % (90-100); BLOOD GAS OXYGEN CONTENT 13.7 Vol % (12.0-20.0); BLOOD GAS PCO2 57 mmHg (38-42); BLOOD GAS PO2 291 mmHg (61-120); BLOOD GAS TOTAL HGB 9.5 G/DL (12.0-16.0); TEMP CORR TO 98.6
[2017-02-28 22:22] LABS: CRITICAL VALUE YES; DRAW SITE LT BRACHIAL; FIO2 100 %; OXYGEN DEVICE VENTILATOR; VENT SETTINGS PRVC/AC
[2017-02-28 22:23] LABS: NUMBER OF ARTERIAL PUNCTURES 1; STAT NO
[2017-02-28] MEDS: RESP: ALBUTEROL 2.5 MG/IPRATROPIUM 0.5 MG NEB (SCH) NEB (22:31)
[2017-02-28] MEDS: FLUCONAZOLE/NACL 200 MG/100 ML IV SCH (22:31)
[2017-02-28 22:51] LABS: AUTOMATED NEUTROPHIL # 22.4 TH/MM3 (1.8-7.7); BASOPHIL # 0.1 TH/MM3 (0-0.2); BASOPHIL % 0.3 % (0.0-2.0); EOSINOPHIL # 0.1 TH/MM3 (0-0.4); EOSINOPHIL % 0.6 % (0.0-4.0); HEMATOCRIT 28.9 % (39.0-51.0); LYMPH % 0.6 % (9.0-44.0); LYMPHOCYTE # 0.1 TH/MM3 (1.0-4.8); MEAN CELL VOLUME 88.4 FL (80.0-100.0); MEAN CORPUSCULAR HEMOGLOBIN 28.7 PG (27.0-34.0); MEAN CORPUSCULAR HGB CONC 32.4 % (32.0-36.0); MONO % 4.3 % (0.0-8.0); NEUT % 94.2 % (16.0-70.0); PLATELET COUNT 262 TH/MM3 (150-450); RED BLOOD COUNT 3.26 MIL/MM3 (4.50-5.90); RED CELL DISTRIBUTION WIDTH 16.1 % (11.6-17.2); WHITE BLOOD COUNT 23.8 TH/MM3 (4.0-11.0)
[2017-02-28 22:54] LABS: HEMO FLAGS AUTO DIFF
[2017-02-28 23:21] LABS: BICARBONATE 28.1 MEQ/L (21.0-32.0); POTASSIUM 4.7 MEQ/L (3.5-5.1)
[2017-03-01] VITALS (16 sets, daily range): BP systolic 101–146; BP diastolic 57–70; PULSE 69–93; RESP 11–20; TEMP 97.2–98.5; O2SAT 94–100
[2017-03-01] MEDS: SODIUM CHLOR 0.9% 1000 ML INJ 1,000 ML IV SCH ×2 (00:45→05:50)
[2017-03-01] MEDS: PIPERACIL-TAZO 2.25 GM PREMIX 50 ML IV SCH ×4 (00:57→23:13)
[2017-03-01 01:10] LABS: SCAN/DIFF AUTO DIFF CONFIRMED
[2017-03-01 05:02] LABS: AUTOMATED NEUTROPHIL # 16.9 TH/MM3 (1.8-7.7); BASOPHIL # 0.1 TH/MM3 (0-0.2); BASOPHIL % 0.4 % (0.0-2.0); EOSINOPHIL # 0.1 TH/MM3 (0-0.4); EOSINOPHIL % 0.5 % (0.0-4.0); HEMATOCRIT 24.9 % (39.0-51.0); HEMO FLAGS DIFF FINAL; LYMPH % 2.7 % (9.0-44.0); LYMPHOCYTE # 0.5 TH/MM3 (1.0-4.8); MONO % 3.7 % (0.0-8.0); NEUT % 92.7 % (16.0-70.0); PLATELET COUNT 221 TH/MM3 (150-450); RED BLOOD COUNT 2.83 MIL/MM3 (4.50-5.90); RED CELL DISTRIBUTION WIDTH 15.6 % (11.6-17.2); WHITE BLOOD COUNT 18.2 TH/MM3 (4.0-11.0)
[2017-03-01 05:05] LABS: INTERNATIONAL NORMALIZED RATIO 2.7 RATIO; PROTHROMBIN TIME - PATIENT 30.8 SEC (9.8-11.6)
[2017-03-01] MEDS: LEVOTHYROXINE SODIUM 100 MCG TAB PO SCH (05:28)
[2017-03-01] MEDS: LEVOTHYROXINE SODIUM 75 MCG TAB PO SCH (05:28)
[2017-03-01] MEDS: INSULIN NovoLIN REGULAR SUPPLEMENTAL SCALE SQ SCH ×4 (05:50→21:00)
--- NOTE | 2017-03-01 06:47 | MB ---
cc: KYE GUAN DATE OF CONSULTATION 02/28/[address] Bird REASON FOR CONSULTATION Shortness of breath and COPD. HISTORY OF PRESENT ILLNESS Mr. Zendejas is a 71-year-old male with history of poorly controlled diabetes mellitus, hypertension, atrial fibrillation and chronic wound on the right foot. He was being followed by the podiatric. He was sent over here and he underwent right above-knee amputation. Currently he is on nasal cannula. He is tired and sleepy, but denies any shortness of breath or pain. He has no fever or chills. No night sweats. He has a workup done. CBC shows WBC count 20.9, hemoglobin 7, hematocrit 21.5, platelet count 243. Sodium 141, potassium 4.25, chloride 103, CO2 27, BUN 50 and creatinine 4.74, INR is 3.0. Chest x-ray shows mild pulmonary edema. PAST MEDICAL HISTORY Past medical history is significant for a history of: 1. Diabetes mellitus 2. Atrial fibrillation 3. Renal failure 4. Hypertension 5. History of tracheostomy tube done in the past. 6. Thyroid disease 7. History of right AKA done on this admission. MEDICATIONS He is currently takin. Levaquin IV 2. Januvia 25 mg a day 3. Diflucan 200 mg [id number] 4. Neurontin 1 mg three times a day 5. Lasix 40 mg daily 6. Imodium p.r.n. 7. Zosyn IV 8. Deltasone 240 mg a day 9. Protonix 40 mg daily 10. Levothyroxine 100 mcg a day 11. Lipitor 40 mg a day 12. Clonidine 0.1 mg twice a day ALLERGIES NO KNOWN DRUG ALLERGIES. FAMILY HISTORY AND SOCIAL HISTORY Not available. REVIEW OF SYSTEMS Cannot assess. PHYSICAL EXAM This is a well-built, well-nourished elderly male with mild shortness of breath. VITAL SIGNS: Blood pressure 100/61, heart rate 70, respirations 16, temperature 98.3. HEENT: Pupils are equal and reactive. NECK: Supple. JVP not raised. He has scar of tracheostomy. CHEST: Equal bilateral. No rhonchi. CARDIOVASCULAR: S1 and S2 normal. ABDOMEN: Soft, nondistended. Bowel sounds present. EXTREMITIES: He has a right AKA. IMPRESSION 1. COPD 2. Renal failure 3. Status post right AKA 4. Diabetes mellitus 5. Atrial fibrillation PLAN 1. Nasal cannula maintaining good oxygen saturation. 2. Give nebulizer treatment DuoNeb four times a day. 3. He has anemia receiving blood transfusion. 4. Monitor his electrolytes . 5. Continue present antibiotic. Further treatment will depend upon the course in the hospital. Thank you Dr. Bird for this consultation. MD KATIA Carmen/YOKASTA /6:13 PM /6:32 AM NILES
--- NOTE | 2017-03-01 07:34 | HHI.CCPN ---
Subjective Remarks/Hospital Course 71-year-old male with history of atrial fibrillation, and poorly controlled diabetes admitted with complaint of generalized weakness. Patient has had a wound on the right foot for a reported 3-4 years. Per inclinometer tester patient has evidence of gangrene and underwent AKA due to osteomyelitis. Patient is nonambulatory at baseline. He was on a regular surgical floor without a rapid response was called for decreased responsiveness and hypercapnic respiratory failure with severe respiratory acidosis. SUBJ 03/01: remains intubated, sedated with low dose Versed and Fentanyl. Wakes up easily follows commands. Objective Vital Signs Date Time Temp Pulse Resp B/P Pulse Ox O2 Delivery O2 Flow Rate FiO2 03/01/17 04:20 100 40 03/01/17 04:00 98.3 79 18 109/65 02/28/17 22:00 Mechanical Ventilator 02/28/17 21:03 15.00 Intake and Output 02/28/17 02/28/17 03/01/17 08:00 16:00 00:00 Intake Total 360 ml 380 ml 500 ml Output Total 600 ml 150 ml 150 ml Balance -240 ml 230 ml 350 ml Result Diagram: 03/01/17 0440 03/01/17 0440 Other Results Laboratory Tests Test 02/28/17 02/28/17 21:06 22:05 Blood Gas Puncture Site LT BRACHIAL LT BRACHIAL Blood Gas Patient Temperature 98.6 98.6 Blood Gas HCO3 27 mmol/L 25 mmol/L (22-26) (22-26) Blood Gas Base Excess -1.6 mmol/L -1.5 mmol/L (-2-2) (-2-2) Blood Gas Oxygen Saturation 73 % (90-100) 97 % (90-100) Arterial Blood pH 7.13 7.26 (7.380-7.420) (7.380-7.420) Arterial Blood Partial 84 mmHg (38-42) 57 mmHg (38-42) Pressure CO2 Arterial Blood Partial 48 mmHg 291 mmHg Pressure O2 (61-120) (61-120) Arterial Blood Oxygen Content 12.0 Vol % 13.7 Vol % (12.0-20.0) (12.0-20.0) Arterial Blood 1.6 % (0-4) 1.6 % (0-4) Carboxyhemoglobin Arterial Blood Methemoglobin 0.9 % (0-2) 1.0 % (0-2) Blood Gas Hemoglobin 11.7 G/DL 9.5 G/DL (12.0-16.0) (12.0-16.0) Oxygen Delivery Device Non-Rebreathing VENTILATOR Mask Blood Gas Liter Flow 15 L/M Blood Gas Inspired Oxygen 100 % 100 % Blood Gas Ventilator Setting PRVC/AC Objective Remarks GENERAL: Elderly man, intubated sedated SKIN: Warm and dry. HEAD: Normocephalic. EYES: No scleral icterus. No injection or drainage. NECK: Supple, trachea midline. No JVD or lymphadenopathy. CARDIOVASCULAR: Regular rate and rhythm without murmurs, gallops, or rubs. RESPIRATORY: Breath sounds equal bilaterally. No accessory muscle use. GASTROINTESTINAL: Abdomen soft, non-tender, nondistended. MUSCULOSKELETAL: No cyanosis, or edema. BACK: Nontender without obvious deformity. No CVA tenderness. EXTREMITIES: Status post Right AKA, stump without signs of bleeding, or infection NEURO: Sedated with Versed and fentanyl. He wakes easily follows commands with upper extremity A/P Assessment and Plan NEURO: -Currently sedated with Versed and fentanyl -Start daily sedation vacation RESP: Respiratory failure, Hypercapnic - Possible narcotic effect - Intubated in the ICU - Mechanical ventilation - Monitor ABG Trend - Start SBT, possible extubation CVS: Atrial fibrillation - Rate controlled - Cardiology follow-up appreciated - Diltiazem - Atenolol Hypertension - Clonidine - Lasix - Atenolol ID Sepsis with proteus and Enterococcus due to wet gangrene R foot -s/p staged amputation, now with R AKA by Dr. Samano -wound C/S Proteus, Enterococcus and PSAE. Blood cx 02/22 Proteus and enterococcus -Antibiotics per ID (vancomycin and Zosyn and Levaquin. Diflucan added by ID 02/12 `7 -Follow-up cultures GI: GERD - PPI RENAL: Renal Failure - Monitor urine output- 350 ml in 24 hours - Monitor electrolytes - Monitor creatinine - Nephrology planning on PermCath placement-probably needs to be started on HD ENDO: Diabetes mellitus - Insulin sliding scale Thyroid Disease - Levothyroxine Dyslipidemia - Atorvastatin HEME: Supratherapeutic INR - Management per hematology. INR 2.7 today DVT GI prophylaxis - Teds SCDs - Monitor INR - PPI Critical Care: The total critical care time was 35 minutes. Time to perform other separately billable procedures was not included in the critical care time. Laura Zaldivar MD Mar 01, 2017 07:34
--- NOTE | 2017-03-01 08:12 | PD.ONC.PN ---
Subjective Subjective Remarks Patient seen and examined this morning, he is intubated overnight for hypercapnic respiratory failure with acidosis. When examined this morning the patient was lying in bed awake and alert, he was attempting to communicate. He is now status post right-sided [id number] amputation for management of gangrenous and peripheral vascular disease. Objective Data Date Time Temp Pulse Resp B/P Pulse Ox O2 Delivery O2 Flow Rate FiO2 03/01/17 04:20 100 40 03/01/17 04:00 50 03/01/17 04:00 98.3 79 18 109/65 100 03/01/17 01:16 100 40 03/01/17 00:00 98.5 79 20 101/57 100 02/28/17 22:32 50 02/28/17 22:00 Mechanical Ventilator 50 02/28/17 21:30 99.5 80 25 138/64 100 02/28/17 21:23 100 100 02/28/17 21:03 65 15.00 100 02/28/17 20:10 96.4 93 22 96/53 88 02/28/17 20:05 Nasal Cannula 7.00 21 02/28/17 17:48 98.3 72 14 100/61 96 02/28/17 17:30 96.9 85 16 96/55 94 02/28/17 16:00 97.8 73 16 95/54 94 02/28/17 14:56 99/56 02/28/17 14:56 99/56 02/28/17 13:14 98.6 71 14 89/53 94 02/28/17 12:57 98.0 68 17 91/55 91 02/28/17 12:00 97.1 83 16 98/58 91 03/01/17 03/01/17 03/01/17 07:00 15:00 23:00 Intake Total 987 ml Output Total 75 ml Balance 912 ml Result Diagram: 03/01/1743903/01/17439 Laboratory Results Laboratory Tests Test 02/28/17 02/28/17 02/28/17 02/28/17 10:30 17:18 21:06 22:05 Blood Type B POSITIVE Antibody Screen NEGATIVE Crossmatch Leukocyte-Reduced Red Blood Cells Blood Bank Comment Prothrombin Time 34.3 SEC Prothromb Time International 3.0 RATIO Ratio Activated Partial 56.3 SEC Thromboplast Time Fibrinogen 460 mg/dL Blood Gas Puncture Site LT BRACHIAL LT BRACHIAL Blood Gas Patient Temperature 98.6 98.6 Blood Gas HCO3 27 mmol/L 25 mmol/L Blood Gas Base Excess -1.6 mmol/L -1.5 mmol/L Blood Gas Oxygen Saturation 73 % 97 % Arterial Blood pH 7.13 7.26 Arterial Blood Partial 84 mmHg 57 mmHg Pressure CO2 Arterial Blood Partial 48 mmHg 291 mmHg Pressure O2 Arterial Blood Oxygen Content 12.0 Vol % 13.7 Vol % Arterial Blood 1.6 % 1.6 % Carboxyhemoglobin Arterial Blood Methemoglobin 0.9 % 1.0 % Blood Gas Hemoglobin 11.7 G/DL 9.5 G/DL Oxygen Delivery Device Non-Rebreathing VENTILATOR Mask Blood Gas Liter Flow 15 L/M Blood Gas Inspired Oxygen 100 % 100 % Blood Gas Ventilator Setting PRVC/AC Test 02/28/17 03/01/17 22:40 04:40 Sodium Level 139 MEQ/L 138 MEQ/L Potassium Level 4.7 MEQ/L 4.0 MEQ/L Chloride Level 101 MEQ/L 103 MEQ/L Carbon Dioxide Level 28.1 MEQ/L 24.0 MEQ/L Anion Gap 10 MEQ/L 11 MEQ/L Blood Urea Nitrogen 58 MG/DL 56 MG/DL Creatinine 5.38 MG/DL 5.42 MG/DL Estimat Glomerular Filtration 11 ML/MIN 11 ML/MIN Rate Random Glucose 181 MG/DL 126 MG/DL Calcium Level 8.3 MG/DL 8.2 MG/DL White Blood Count 23.8 TH/MM3 18.2 TH/MM3 Red Blood Count 3.26 MIL/MM3 2.83 MIL/MM3 Hemoglobin 9.4 GM/DL 8.2 GM/DL Hematocrit 28.9 % 24.9 % Mean Corpuscular Volume 88.4 FL 88.0 FL Mean Corpuscular Hemoglobin 28.7 PG 29.0 PG Mean Corpuscular Hemoglobin 32.4 % 33.0 % Concent Red Cell Distribution Width 16.1 % 15.6 % Platelet Count 262 TH/MM3 221 TH/MM3 Mean Platelet Volume 8.6 FL 8.9 FL Neutrophils (%) (Auto) 94.2 % 92.7 % Lymphocytes (%) (Auto) 0.6 % 2.7 % Monocytes (%) (Auto) 4.3 % 3.7 % Eosinophils (%) (Auto) 0.6 % 0.5 % Basophils (%) (Auto) 0.3 % 0.4 % Neutrophils # (Auto) 22.4 TH/MM3 16.9 TH/MM3 Lymphocytes # (Auto) 0.1 TH/MM3 0.5 TH/MM3 Monocytes # (Auto) 1.0 TH/MM3 0.7 TH/MM3 Eosinophils # (Auto) 0.1 TH/MM3 0.1 TH/MM3 Basophils # (Auto) 0.1 TH/MM3 0.1 TH/MM3 CBC Comment AUTO DIFF DIFF FINAL Differential Comment AUTO DIFF CONFIRMED Prothrombin Time 30.8 SEC Prothromb Time International 2.7 RATIO Ratio Culture Results Microbiology Date/Time Procedure Status Source Growth 02/28/17 17:10 Aerobic Blood Culture Received Blood Peripheral Pending 02/28/17 17:10 Anaerobic Blood Culture Received Blood Peripheral Pending 02/28/17 17:15 Aerobic Blood Culture Received Blood Peripheral Pending 02/28/17 17:15 Anaerobic Blood Culture Received Blood Peripheral Pending Administered Medications Medications (Trade) Dose Ordered Sig/Libia Route PRN Reason Start Time Stop Time Status Last Admin Dose Admin Sodium Chloride (NS Flush) 2 ml BID IV FLUSH 02/22/17 21:00 02/28/17 19:54 Acetaminophen/ Hydrocodone Bitart ([place] 10-325 Mg) 1 tab Q4H PRN PO PAIN SCALE 1 TO 7 02/22/17 18:15 02/28/17 09:01 Atenolol (Tenormin) 100 mg BID PO 02/22/17 21:00 02/28/17 08:33 Atorvastatin Calcium (Lipitor) 40 mg HS PO 02/22/17 21:00 02/28/17 19:59 Clonidine (Catapres) 0.1 mg BID PO 02/22/17 21:00 02/28/17 08:33 Diltiazem HCl (Cardizem Cd) 240 mg DAILY PO 02/23/17 09:00 02/28/17 08:33 Sodium Bicarbonate (Sodium Bicarbonate) 650 mg TIDPC PO 02/22/17 18:30 02/28/17 12:30 Pantoprazole Sodium (Protonix) 40 mg DAILY PO 02/23/17 09:00 02/28/17 08:33 Levothyroxine Sodium (Synthroid) 100 mcg DAILY@06 PO 02/23/17 06:00 03/01/17 05:28 Levothyroxine Sodium (Synthroid) 75 mcg DAILY@06 PO 02/23/17 06:00 03/01/17 05:28 Heparin Sodium (Porcine) (Heparin Inj) 5,000 units Q12HR SQ 02/24/17 09:00 Hold 02/26/17 08:08 Cholecalciferol (Vitamin D3) 5,000 units DAILY PO 02/25/17 09:00 02/28/17 08:33 Loperamide HCl (Imodium) 2 mg Q6H PRN PO DIARRHEA 02/24/17 20:30 02/24/17 20:54 Furosemide (Lasix) 40 mg DAILY PO 02/25/17 09:00 02/28/17 08:33 Betamethasone/ Clotrimazole (Lotrisone Cream) 1 applic Q12HR TOPICAL 02/27/17 09:00 02/28/17 20:02 Gabapentin 100 mg 100 mg TID PO 02/28/17 13:00 02/28/17 18:15 Fluconazole/ Sodium Chloride 100 ml @ 100 mls/hr Q24H IV 02/28/17 22:00 02/28/17 22:31 Piperacillin Sod/ Tazobactam Sod (Zosyn 2.25 Gm Premix) 50 ml @ 100 mls/hr Q8H IV 02/28/17 23:00 03/01/17 05:50 Objective Remarks GENERAL PHYSICAL APPEARANCE: Mr. Zendejas is an elderly male, he is laying in bed, awake and alert, intubated. HEENT: Head atraumatic, normocephalic, conjunctive are pale sclerae anicteric, EOMI, PERRLA, he has had a right-sided cataract surgery. Oral exam, no pharyngeal erythema. Poor dental hygiene. NECK: No palpable cervical or supraclavicular lymphadenopathy. RESPIRATORY: He had good air movement bilaterally. No added breath sounds. CARDIOVASCULAR: Irregular rhythm, S1-S2. No obvious murmurs, rubs or gallops. ABDOMEN: Protuberant belly, soft and nontender, nondistended, no palpable organ enlargement. EXTREMITIES: Lower extremity, right side above the knee amputation. The surgical dressings are clean and without blood stains. The left lower extremity: He has scaling of the leg, atrophy of the muscles, no open wounds but a great of skin dryness. MANAGER GIFT: Moving all limbs spontaneously. Assessment/Plan Problem List: (1) Anemia Status: Acute Plan: -- Likely secondary to acute blood loss compounded by renal failure and chronic illness. --transfuse as needed (2) Coagulopathy Status: Chronic Plan: Likely multifactorial secondary to vitamin K deficiency, consumption secondary to recent surgery, consumption secondary to recent sepsis and likely decreased hepatic synthetic function (as evidenced by decreased albumin levels). Recommend continuation of vitamin K replacement (oral). FFP infusion today prior to Vas-Cath placement. Assessment 71y/o male with supratherapeutic INR in a patient with sepsis secondary to gangrene. --history of atrial fibrillation --has been on Warfarin >10 years. 2.5 mg daily six days a week and 2 mg one day a week. This helped maintain his INR at about 2.5. --s/p right [id number] amputation on 02/23/2017. h/o Diabetes Peripheral vascular disease tobaccoism Agent orange exposure Advanced stage chronic kidney failure Hyperlipidemia Gastroesophageal reflux disease Hypertension Hypothyroidism Plan 1. Continue vitamin K 2.5mg PO daily 2. monitor INR 3. Supportive red blood cell transfusion to maintain hemoglobin above 8 g/dL. 4. Fibrinogen level was elevated. Michael Martinez MD Mar 01, 2017 08:12
[2017-03-01] MEDS: RESP: ALBUTEROL 2.5 MG/IPRATROPIUM 0.5 MG NEB (SCH) NEB ×4 (08:15→20:32)
[2017-03-01] MEDS: DILTIAZEM-CD 240 MG CAP ER PO SCH (08:49)
[2017-03-01] MEDS: PANTOPRAZOLE SOD 40 MG DELAYED RELEASE TAB PO SCH (08:49)
[2017-03-01] MEDS: cloNIDine HCL 0.1 MG TAB PO SCH ×2 (09:00→21:42)
[2017-03-01] MEDS: BETAMETHASONE/CLOTRIMAZOLE CREAM 15 GM TOPICAL SCH ×2 (09:00→21:00)
--- NOTE | 2017-03-01 10:01 | PD.PROCEDR ---
Central Line Procedure REASON FOR PROCEDURE Central venous access PROCEDURE PERFORMED Central line placement: [facility] CONSENT Informed consent for procedure was obtained and time out performed. The risks and benefits of the procedure were discussed to include but limited to bleeding , clot formation, infection, and even . ANESTHESIA Local injection of 1% Lidocaine DESCRIPTION OF THE PROCEDURE The patient was placed in supine, mild Trendelenburg position. The area was exposed and cleansed with ChloraPrep, times two. Large sterile drape was used to cover the patient, with the site exposed, under sterile conditions including cap, face mask, sterile gown, and sterile gloves. On single attempt, the introducer needle was inserted with negative pressure in syringe and venous flash was obtained. The guide wire was then advanced without any restriction and the needle was removed. The dilator was used without any complications. Using Seldinger technique the 24 CM 14 F two lumen catheter was advanced over the guide wire to a depth of 22 centimeters. The guide wire was removed. All ports were aspirated with dark venous blood return and flushed easily with sterile saline. All ports were capped. Antibiotic disc was placed around central line at puncture site. The central line was secured to the skin with two interrupted 2.0 silk sutures. The area was bandaged with sterile see- through central line bandage. RADIOLOGICAL DATA Ultrasound guidance was used to locate [facility] COMPLICATIONS: No apparent complications ESTIMATED BLOOD LOSS: Less than 1 cc. Laura Zaldivar MD Mar 01, 2017 10:01
[2017-03-01] MEDS ORDERED: HEPARIN SODIUM - IV 2,000 UNITS/2 ML VIAL IV FLUSH PRN (10:15)
[2017-03-01] MEDS ORDERED: SODIUM CHLORIDE 0.9% FLUSH 10 ML FLUSH IVF PRN (10:15)
--- NOTE | 2017-03-01 10:15 | HHI.PR ---
Subjective Remarks Patient is intubated on light sedation with Fentanyl and versed for sedation. He opens eyes to command. Objective Vital Signs Date Time Temp Pulse Resp B/P Pulse Ox O2 Delivery O2 Flow Rate FiO2 03/01/17 08:12 40 03/01/17 08:09 100 40 03/01/17 04:20 100 40 03/01/17 04:00 50 03/01/17 04:00 98.3 79 18 109/65 100 03/01/17 01:16 100 40 03/01/17 00:00 98.5 79 20 101/57 100 02/28/17 22:32 50 02/28/17 22:00 Mechanical Ventilator 50 02/28/17 21:30 99.5 80 25 138/64 100 02/28/17 21:23 100 100 02/28/17 21:03 65 15.00 100 02/28/17 20:10 96.4 93 22 96/53 88 02/28/17 20:05 Nasal Cannula 7.00 21 02/28/17 17:48 98.3 72 14 100/61 96 02/28/17 17:30 96.9 85 16 96/55 94 02/28/17 16:00 97.8 73 16 95/54 94 02/28/17 14:56 99/56 02/28/17 14:56 99/56 02/28/17 13:14 98.6 71 14 89/53 94 02/28/17 12:57 98.0 68 17 91/55 91 02/28/17 12:00 97.1 83 16 98/58 91 I/O 02/28/17 02/28/17 02/28/17 03/01/17 03/01/17 03/01/17 07:00 15:00 23:00 07:00 15:00 23:00 Intake Total 240 ml 500 ml 500 ml 987 ml Output Total 600 ml 150 ml 150 ml 75 ml Balance -360 ml 350 ml 350 ml 912 ml Intake Oral 240 ml 360 ml IV Total 987 ml Packed Cells 140 ml 250 ml Other 250 ml Output Urine Total 600 ml 150 ml 150 ml 75 ml # Bowel Movements 0 0 0 0 Result Diagram: 03/01/17 0440 03/01/17 0440 Procedures 02/23 BKA of right leg 02/25 AKA r leg Objective Remarks GENERAL: Intubated on sedation SKIN: Warm and dry. Discoloration in lower extremity HEAD: Normocephalic. EYES: No scleral icterus. No injection or drainage. NECK: Supple, trachea midline. No JVD or lymphadenopathy. CARDIOVASCULAR: Regular rate and rhythm without murmurs, gallops, or rubs. RESPIRATORY: Breath sounds equal bilaterally. No accessory muscle use. Intubated GASTROINTESTINAL: Abdomen soft, non-tender, nondistended. MUSCULOSKELETAL: No cyanosis, or edema. Status post right AKA. Dressing on BACK: Nontender without obvious deformity. No CVA tenderness. Medications and IVs Current Medications Medications (Trade) Dose Ordered Sig/Libia Route Start Time Stop Time Status Last Admin (NS Flush) 2 ml UNSCH PRN IV FLUSH 02/22/17 18:15 (NS Flush) 2 ml BID IV FLUSH 02/22/17 21:00 02/28/17 19:54 (Zofran Inj) 4 mg Q6H PRN IVP 02/22/17 18:15 (Narcan Inj) 0.4 mg UNSCH PRN IV 02/22/17 18:15 ([place] 10-325 Mg) 1 tab Q4H PRN PO 02/22/17 18:15 02/28/17 09:01 (Tenormin) 100 mg BID PO 02/22/17 21:00 02/28/17 08:33 (Lipitor) 40 mg HS PO 02/22/17 21:00 02/28/17 19:59 (Catapres) 0.1 mg BID PO 02/22/17 21:00 02/28/17 08:33 (Cardizem Cd) 240 mg DAILY PO 02/23/17 09:00 02/28/17 08:33 (Sodium Bicarbonate) 650 mg TIDPC PO 02/22/17 18:30 02/28/17 12:30 (Protonix) 40 mg DAILY PO 02/23/17 09:00 02/28/17 08:33 (Synthroid) 100 mcg DAILY@06 PO 02/23/17 06:00 03/01/17 05:28 (Synthroid) 75 mcg DAILY@06 PO 02/23/17 06:00 03/01/17 05:28 (Heparin Inj) 5,000 units Q12HR SQ 02/24/17 09:00 Hold 02/26/17 08:08 (D50w (Vial) Inj) 25 ml UNSCH PRN IV PUSH 02/24/17 11:45 (Glucagon Inj) 1 mg UNSCH PRN OTHER 02/24/17 11:45 (Vitamin D3) 5,000 units DAILY PO 02/25/17 09:00 02/28/17 08:33 (Imodium) 2 mg Q6H PRN PO 02/24/17 20:30 02/24/17 20:54 (Lasix) 40 mg DAILY PO 02/25/17 09:00 02/28/17 08:33 (Lotrisone Cream) 1 applic Q12HR TOPICAL 02/27/17 09:00 02/28/17 20:02 (Mephyton) 2.5 mg DAILY PO 03/01/17 09:00 (Neurontin) 100 mg TID PO 02/28/17 13:00 02/28/17 18:15 Miscellaneous 1 ea 1 ea UNSCH PRN OTHER 02/28/17 12:00 Levofloxacin/ Dextrose 50 ml @ 100 mls/hr Q48H IV 03/01/17 18:00 Fluconazole/ Sodium Chloride 100 ml @ 100 mls/hr Q24H IV 02/28/17 22:00 02/28/17 22:31 (Zosyn 2.25 Gm Premix) 50 ml @ 100 mls/hr Q8H IV 02/28/17 23:00 03/01/17 05:50 (Januvia) 25 mg DAILY PO 03/01/17 09:00 (NS Flush) UNSCH PRN IVF 03/01/17 10:15 UNV (Heparin Inj) UNSCH PRN IV FLUSH 03/01/17 10:15 UNV Assessment and Plan Problem List: (1) Respiratory failure, acute Status: Acute Plan: Patient transferred to ICU for respiratory failure. Intubated and on sedation. Medical Technician managing. (2) Gangrene Status: Acute Plan: Patient with florid wet gangrene of the right foot BKA on the 12th above the knee amputation on the 14th Dressing on (3) Sepsis Status: Acute Plan: ID consulted and managing. On antibiotics. WBC down to 18.2 BC pending BC on the 13th negative (4) Acute on chronic kidney disease, stage 4 Status: Acute Plan: Nephrology consulted and managing. Patient with low urine ouput at 350cc Vas cath ordered for dialysis. FFP prior. (5) Hypertension Status: Acute Plan: Continue current regimen. B/P 109/65 (6) Tobacco abuse Status: Acute Plan: smoking cessation needed (7) Diabetes Status: Acute Plan: BS monitored adjust treatment as needed (8) Atrial fibrillation Status: Acute Plan: Cardiology consulted. Rate controlled (9) Elevated INR Status: Acute Plan: Hematology consulted and managing. Vitamin k daily. FFP prior to Vas cath placement (10) Anemia Status: Acute Plan: Transfused 2 units of PRBC yesterday with HGB 10.0 today Assessment and Plan Assessment and plan discussed with Dr. Pelon Min ordered daily. Labs in AM Problem Qualifiers (1) Sepsis: Qualified Code: A41.9 - Sepsis, due to unspecified organism Cherie Loyd Mar 01, 2017 10:15
--- NOTE | 2017-03-01 10:21 | HHI.NPPN ---
Subjective History of Present Illness This patient is a 71-year-old male with a history of long-standing diabetes mellitus and hypertension as well as chronic kidney disease known to me from the office, approaching end-stage renal disease. 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 Patient did have an AV dialysis shunt placed in preparation for dialysis unfortunately access failed. Is on sodium bicarbonate chronically for metabolic acidosis. There has been concern regarding nutritional status recently. Interval History Pt intubated and sedated. s/p VasCath placement this AM (PermCath held d/t elevated INR) (Vera June) Review of Systems General General Remarks Unable to obtain (Vera June) Objective Data Data 02/28/17 03/01/17 19:00 07:00 Intake Total 750 ml 1237 ml Output Total 150 ml 225 ml Balance 600 ml 1012 ml Intake Oral 360 ml IV Total 987 ml Packed Cells 140 ml 250 ml Other 250 ml Output Urine Total 150 ml 225 ml # Bowel Movements 0 0 Vital Signs Date Time Temp Pulse Resp B/P Pulse Ox O2 Delivery O2 Flow Rate FiO2 03/01/17 08:12 40 03/01/17 08:09 100 40 03/01/17 04:20 100 40 03/01/17 04:00 50 03/01/17 04:00 98.3 79 18 109/65 100 03/01/17 01:16 100 40 03/01/17 00:00 98.5 79 20 101/57 100 02/28/17 22:32 50 02/28/17 22:00 Mechanical Ventilator 50 02/28/17 21:30 99.5 80 25 138/64 100 02/28/17 21:23 100 100 02/28/17 21:03 65 15.00 100 02/28/17 20:10 96.4 93 22 96/53 88 02/28/17 20:05 Nasal Cannula 7.00 21 02/28/17 17:48 98.3 72 14 100/61 96 02/28/17 17:30 96.9 85 16 96/55 94 02/28/17 16:00 97.8 73 16 95/54 94 02/28/17 14:56 99/56 02/28/17 14:56 99/56 02/28/17 13:14 98.6 71 14 89/53 94 02/28/17 12:57 98.0 68 17 91/55 91 02/28/17 12:00 97.1 83 16 98/58 91 (Vera June) -: 03/01/17 0440 03/01/17 0440 Microbiology 02/28/17 Aerobic Blood Culture, Received Pending 02/28/17 Anaerobic Blood Culture, Received Pending 02/28/17 Aerobic Blood Culture, Received Pending 02/28/17 Anaerobic Blood Culture, Received Pending Imaging Last Impressions Chest X-Ray 02/28/17 0000 Signed Impressions: Service Date/Time: Tuesday, February 28, 2017 21:45 - CONCLUSION: 1. Mild consolidation and small effusion of the left lung base. 2. Right IJ line with tip in the superior vena cava and endotracheal tube tip about 5 cm above the lidia. No pneumothorax or other acute complication demonstrated. Zen Leiva MD Foot X-Ray 02/22/17 0000 Signed Impressions: Service Date/Time: Wednesday, February 22, 2017 17:46 - CONCLUSION: Soft tissues extensive soft tissue emphysema, mottled in appearance very concerning for infection with gas-forming organism. No obvious osseous destruction is seen to suggest osteomyelitis. Abhi Seo MD Tubes & Lines: Vas-Cath ([facility]) Medication Review Current Medications Medications (Trade) Dose Ordered Sig/Libia Route Start Time Stop Time Status Last Admin (NS Flush) 2 ml UNSCH PRN IV FLUSH 02/22/17 18:15 (NS Flush) 2 ml BID IV FLUSH 02/22/17 21:00 02/28/17 19:54 (Zofran Inj) 4 mg Q6H PRN IVP 02/22/17 18:15 (Narcan Inj) 0.4 mg UNSCH PRN IV 02/22/17 18:15 ([place] 10-325 Mg) 1 tab Q4H PRN PO 02/22/17 18:15 02/28/17 09:01 (Tenormin) 100 mg BID PO 02/22/17 21:00 02/28/17 08:33 (Lipitor) 40 mg HS PO 02/22/17 21:00 02/28/17 19:59 (Catapres) 0.1 mg BID PO 02/22/17 21:00 02/28/17 08:33 (Cardizem Cd) 240 mg DAILY PO 02/23/17 09:00 02/28/17 08:33 (Sodium Bicarbonate) 650 mg TIDPC PO 02/22/17 18:30 02/28/17 12:30 (Protonix) 40 mg DAILY PO 02/23/17 09:00 02/28/17 08:33 (Synthroid) 100 mcg DAILY@06 PO 02/23/17 06:00 03/01/17 05:28 (Synthroid) 75 mcg DAILY@06 PO 02/23/17 06:00 03/01/17 05:28 (Heparin Inj) 5,000 units Q12HR SQ 02/24/17 09:00 Hold 02/26/17 08:08 (D50w (Vial) Inj) 25 ml UNSCH PRN IV PUSH 02/24/17 11:45 (Glucagon Inj) 1 mg UNSCH PRN OTHER 02/24/17 11:45 (Vitamin D3) 5,000 units DAILY PO 02/25/17 09:00 02/28/17 08:33 (Imodium) 2 mg Q6H PRN PO 02/24/17 20:30 02/24/17 20:54 (Lasix) 40 mg DAILY PO 02/25/17 09:00 02/28/17 08:33 (Lotrisone Cream) 1 applic Q12HR TOPICAL 02/27/17 09:00 02/28/17 20:02 (Mephyton) 2.5 mg DAILY PO 03/01/17 09:00 (Neurontin) 100 mg TID PO 02/28/17 13:00 02/28/17 18:15 Miscellaneous 1 ea 1 ea UNSCH PRN OTHER 02/28/17 12:00 Levofloxacin/ Dextrose 50 ml @ 100 mls/hr Q48H IV 03/01/17 18:00 Fluconazole/ Sodium Chloride 100 ml @ 100 mls/hr Q24H IV 02/28/17 22:00 02/28/17 22:31 (Zosyn 2.25 Gm Premix) 50 ml @ 100 mls/hr Q8H IV 02/28/17 23:00 03/01/17 05:50 (Januvia) 25 mg DAILY PO 03/01/17 09:00 (NS Flush) UNSCH PRN IVF 03/01/17 10:15 UNV (Heparin Inj) UNSCH PRN IV FLUSH 03/01/17 10:15 UNV (Vera June) Physical Exam General Appearance: No Acute Distress (Vera June) Eyes Eye Exam: Sclera White (Vera June) Pulmonary Resp Exam: Clear Bilaterally, Breath Sounds Equal, No Distress (Vera June) Cardiology CV Exam: Regular, Normal Sinus Rhythm (Vera June) Gastrointestinal/Abdomen GI Exam: Soft, Non-Tender (Vera June) Integumentary Skin Exam: Clear, Warm (Vera June) Extremeties Extremities Exam: Moderate Edema (right upper extremity. None in LLE), Pitting Edema (Vera June) Assessment/Plan Discussed Condition With: Patient, Spouse Problem List: (1) CKD (chronic kidney disease) stage 4, GFR 15-29 ml/min Plan: The patient was intubated yesterday with plans on extubation today. RalphCatmadelin placed this AM as INR too high for PermCath. Pending HD today with 2nd treatment tomorrow. Will start MWF schedule thereafter Medications should be adjusted for the patient's ESRD. Avoid gadolinium (2) Metabolic acidosis Plan: Currently compensated. (3) Hyperkalemia Plan: History of hyperkalemia in the past but not presently. (4) Dialysis AV fistula malfunction Plan: Awaiting consult from Dr. Leonard (5) Vitamin D deficiency Plan: Vitamin D as ordered. (6) Malnutrition Plan: Agree with nutritional supplementation and patient was encouraged to improve his dietary protein intake. (7) Diabetes Plan: Management per primary care physician. (8) Hypertension (Vera June) Plan The exam, history, and the medical decision-making described in the above note were completed with the assistance of the PAShawn. I reviewed and agree with the findings presented. (Jeremiah Hagan MD) Vera June Mar 01, 2017 10:21 Jeremiah Hagan MD Mar 02, 2017 16:59
--- NOTE | 2017-03-01 10:26 | HHI.IDPN ---
Subjective Subjective Remarks Notes reviewed D/W Dr Zaldivar ([facility]) Intubated BP ok, not on pressors Temps ok Will be started on HD D/W RN Sedated on the vent Had R AKA last Sunday 02/25 WBC down to 18.2 Got dose of Vanco yesterday Antibiotics Zosyn Levaquin Diflucan Vancomycin Lines PIV Past Medical History AFIB Hyperlipidemia Diabetes GERD Hypertension Renal Failure Thyroid Disease Past Surgical History Previous tracheostomy AV fistula in the right upper extremity Allergies: Coded Allergies: No Known Allergies (Unverified , 01/11/17) Objective . Vital Signs Date Time Temp Pulse Resp B/P Pulse Ox O2 Delivery O2 Flow Rate FiO2 03/01/17 08:12 40 03/01/17 08:09 100 40 03/01/17 04:20 100 40 03/01/17 04:00 50 03/01/17 04:00 98.3 79 18 109/65 100 03/01/17 01:16 100 40 03/01/17 00:00 98.5 79 20 101/57 100 02/28/17 22:32 50 02/28/17 22:00 Mechanical Ventilator 50 02/28/17 21:30 99.5 80 25 138/64 100 02/28/17 21:23 100 100 02/28/17 21:03 65 15.00 100 02/28/17 20:10 96.4 93 22 96/53 88 02/28/17 20:05 Nasal Cannula 7.00 21 02/28/17 17:48 98.3 72 14 100/61 96 02/28/17 17:30 96.9 85 16 96/55 94 02/28/17 16:00 97.8 73 16 95/54 94 02/28/17 14:56 99/56 02/28/17 14:56 99/56 02/28/17 13:14 98.6 71 14 89/53 94 02/28/17 12:57 98.0 68 17 91/55 91 02/28/17 12:00 97.1 83 16 98/58 91 02/28/17 02/28/17 03/01/17 15:00 23:00 07:00 Intake Total 500 ml 500 ml 987 ml Output Total 150 ml 150 ml 75 ml Balance 350 ml 350 ml 912 ml Intake Oral 360 ml IV Total 987 ml Packed Cells 140 ml 250 ml Other 250 ml Output Urine Total 150 ml 150 ml 75 ml # Bowel Movements 0 0 0 . Laboratory Tests Test 02/28/17 02/28/17 03/01/17 05:00 22:40 04:40 White Blood Count 20.9 TH/MM3 23.8 TH/MM3 18.2 TH/MM3 Red Blood Count 2.42 MIL/MM3 3.26 MIL/MM3 2.83 MIL/MM3 Hemoglobin 7.0 GM/DL 9.4 GM/DL 8.2 GM/DL Hematocrit 21.5 % 28.9 % 24.9 % Mean Corpuscular Volume 88.8 FL 88.4 FL 88.0 FL Mean Corpuscular Hemoglobin 29.2 PG 28.7 PG 29.0 PG Mean Corpuscular Hemoglobin 32.8 % 32.4 % 33.0 % Concent Red Cell Distribution Width 15.2 % 16.1 % 15.6 % Platelet Count 243 TH/MM3 262 TH/MM3 221 TH/MM3 Mean Platelet Volume 9.2 FL 8.6 FL 8.9 FL Neutrophils (%) (Auto) 91.5 % 94.2 % 92.7 % Lymphocytes (%) (Auto) 2.5 % 0.6 % 2.7 % Monocytes (%) (Auto) 4.3 % 4.3 % 3.7 % Eosinophils (%) (Auto) 1.3 % 0.6 % 0.5 % Basophils (%) (Auto) 0.4 % 0.3 % 0.4 % Neutrophils # (Auto) 19.2 TH/MM3 22.4 TH/MM3 16.9 TH/MM3 Lymphocytes # (Auto) 0.5 TH/MM3 0.1 TH/MM3 0.5 TH/MM3 Monocytes # (Auto) 0.9 TH/MM3 1.0 TH/MM3 0.7 TH/MM3 Eosinophils # (Auto) 0.3 TH/MM3 0.1 TH/MM3 0.1 TH/MM3 Basophils # (Auto) 0.1 TH/MM3 0.1 TH/MM3 0.1 TH/MM3 CBC Comment AUTO DIFF AUTO DIFF DIFF FINAL Differential Total Cells 100 Counted Neutrophils % (Manual) 91 % Band Neutrophils % 2 % Lymphocytes % 3 % Monocytes % 2 % Eosinophils % 1 % Basophils % 1 % Neutrophils # (Manual) 19.4 TH/MM3 Differential Comment FINAL DIFF AUTO DIFF MANUAL CONFIRMED Platelet Estimate NORMAL Platelet Morphology Comment NORMAL Basophilic Stippling FAINT Laboratory Tests Test 02/28/17 02/28/17 03/01/17 05:00 22:40 04:40 Sodium Level 141 MEQ/L 139 MEQ/L 138 MEQ/L Potassium Level 4.2 MEQ/L 4.7 MEQ/L 4.0 MEQ/L Chloride Level 103 MEQ/L 101 MEQ/L 103 MEQ/L Carbon Dioxide Level 27.8 MEQ/L 28.1 MEQ/L 24.0 MEQ/L Anion Gap 10 MEQ/L 10 MEQ/L 11 MEQ/L Blood Urea Nitrogen 51 MG/DL 58 MG/DL 56 MG/DL Creatinine 4.74 MG/DL 5.38 MG/DL 5.42 MG/DL Estimat Glomerular Filtration 12 ML/MIN 11 ML/MIN 11 ML/MIN Rate Random Glucose 83 MG/DL 181 MG/DL 126 MG/DL Calcium Level 8.1 MG/DL 8.3 MG/DL 8.2 MG/DL Microbiology Date/Time Procedure Status Source Growth 02/28/17 17:10 Aerobic Blood Culture Received Blood Peripheral Pending 02/28/17 17:10 Anaerobic Blood Culture Received Blood Peripheral Pending 02/28/17 17:15 Aerobic Blood Culture Received Blood Peripheral Pending 02/28/17 17:15 Anaerobic Blood Culture Received Blood Peripheral Pending Imaging Last Impressions Foot X-Ray 02/22/17 0000 Signed Impressions: Service Date/Time: Wednesday, February 22, 2017 17:46 - CONCLUSION: Soft tissues extensive soft tissue emphysema, mottled in appearance very concerning for infection with gas-forming organism. No obvious osseous destruction is seen to suggest osteomyelitis. Abhi Seo MD Physical Exam GENERAL: SEdated on the vent SKIN: Cool and dry. Looks pale and sallow. has a lot of purpuric lesions in UE. No generalized rash HEENT: [place] conjunctivae. No scleral icterus. No injection or drainage. ET in mouth NECK: Supple, nontender, no meningeal signs. CARDIOVASCULAR: Regular rate and rhythm without murmurs, gallops, or rubs. RESPIRATORY: Clear to auscultation. Breath sounds equal bilaterally. No wheezes , rales, or rhonchi. GASTROINTESTINAL: Abdomen soft, non-tender, nondistended. No hepato-splenomegaly , or palpable masses. No guarding. MUSCULOSKELETAL: LLE without clubbing, cyanosis, or edema. No joint tenderness, effusion. S/P RAKA with dry dressing. NEUROLOGICAL: Sedated PSYCH: Unable to assess LINE: PIV with no evidence of infection Assessment & Plan Remarks IMPRESSION Lethargy, persistent leukocytosis, low BP - ?new infection Respiratory failure Sepsis with proteus and Enterococcus due to wet gangrene R foot - repeat BC negative DFI, PVD with wet gangrene - S/P R AKA (2 staged) - foot C/S Proteus, Enterococcus and PSAE Renal failure RECOMMENDATION Follow C/S Vanco level today Continue Zosyn and Levaquin Continue Diflucan To be started on HD today Monitor progress D/W RN D/W Dr Zaldivar ([facility]) Connie Cerna MD Mar 01, 2017 10:26
[2017-03-01] MEDS: SODIUM BICARBONATE 650 MG TAB PO SCH ×3 (10:37→17:59)
[2017-03-01] MEDS: SODIUM CHLORIDE 0.9% FLUSH 10 ML FLUSH IV FLUSH SCH ×2 (10:37→21:00)
[2017-03-01] MEDS: ATENOLOL 100 MG TAB PO SCH ×2 (10:38→21:42)
[2017-03-01] MEDS: FUROSEMIDE 40 MG TAB PO SCH (10:38)
[2017-03-01] MEDS: GABAPENTIN 100 MG CAP PO SCH ×3 (10:39→17:59)
[2017-03-01] MEDS: CHOLECALCIFEROL (VIT D3) 5000 UNIT CAP PO SCH (10:39)
[2017-03-01] MEDS: PHYTONADIONE 5 MG TAB PO SCH (10:39)
--- NOTE | 2017-03-01 11:33 | RADRPT ---
EXAM DATE/TIME: 03/01/2017 10:21 [facility] COMPARISON: CHEST SINGLE AP, February 28, 2017, 21:45. INDICATIONS : Central line placement. MEDICAL HISTORY : Diabetes mellitus type II. SURGICAL HISTORY : None. ENCOUNTER: Subsequent ACUITY: 4 - 6 days PAIN SCORE: Non-responsive. LOCATION: Bilateral chest FINDINGS: Interval placement of left large bore central line with tip projecting of the cavoatrial junction. N o evidence pneumothorax. Right internal jugular catheter tip projects over the distal superior vena cava. Gastric tube 1st the [id number]. ET tube in good position. There is persisting consolidat ion left lower lung with loss of delineation of the left hemidiaphragm. The right lung is clear. Th e heart is normal size. CONCLUSION: Left central line tip in good position. No evidence of pneumothorax. Stable left lower lobe consoli dation. Davis Alves MD on March 01, 2017 at 11:31 Board Certified Radiologist. This report was verified electronically.
[2017-03-01] MEDS ORDERED: SODIUM CHLOR 0.9% 1000 ML INJ 1,000 ML IV PRN ×3 (11:39)
[2017-03-01] MEDS ORDERED: ALBUMIN HUMAN 25% 25 GM/100 ML BAGP IV PRN (11:45)
[2017-03-01] MEDS ORDERED: diphenhydrAMINE HCL 25 MG CAP PO PRN (11:45)
[2017-03-01] MEDS ORDERED: ACETAMINOPHEN 325 MG TAB PO PRN (11:45)
[2017-03-01] MEDS ORDERED: SODIUM CHLORIDE 0.9% FLUSH 10 ML FLUSH IV FLUSH PRN (11:45)
[2017-03-01] MEDS ORDERED: HEPARIN SODIUM - IV 10,000 UNITS/10 ML VIAL IVF PRN (11:45)
[2017-03-01] MEDS ORDERED: GELATIN 12 MM/7 MM FOAM TOP PRN (11:45)
[2017-03-01] MEDS ORDERED: MANNITOL 12.5 GM/50 ML VIAL IV PRN (11:45)
[2017-03-01] MEDS ORDERED: cloNIDine HCL 0.1 MG TAB PO PRN (11:45)
[2017-03-01] MEDS ORDERED: NITROGLYCERIN 0.4 MG SL 25 TABS/BTL SL PRN (11:45)
[2017-03-01] MEDS ORDERED: ONDANSETRON HCL 4 MG/2 ML VIAL IV PRN (11:45)
[2017-03-01] MEDS ORDERED: ALTEPLASE RECOMBINANT 2 MG VIAL IV ONE (12:45)
--- NOTE | 2017-03-01 16:58 | PD.CARD.PN ---
Subjective Subjective Remarks Intubated, sedated Objective Medications Current Medications Medications (Trade) Dose Ordered Sig/[place] Route Start Time Stop Time Status Last Admin (NS Flush) 2 ml UNSCH PRN IV FLUSH 02/22/17 18:15 (NS Flush) 2 ml BID IV FLUSH 02/22/17 21:00 03/01/17 10:37 (Zofran Inj) 4 mg Q6H PRN IVP 02/22/17 18:15 (Narcan Inj) 0.4 mg UNSCH PRN IV 02/22/17 18:15 ([place] 10-325 Mg) 1 tab Q4H PRN PO 02/22/17 18:15 02/28/17 09:01 (Tenormin) 100 mg BID PO 02/22/17 21:00 03/01/17 10:38 (Lipitor) 40 mg HS PO 02/22/17 21:00 02/28/17 19:59 (Catapres) 0.1 mg BID PO 02/22/17 21:00 02/28/17 08:33 (Cardizem Cd) 240 mg DAILY PO 02/23/17 09:00 02/28/17 08:33 (Sodium Bicarbonate) 650 mg TIDPC PO 02/22/17 18:30 03/01/17 10:37 (Protonix) 40 mg DAILY PO 02/23/17 09:00 02/28/17 08:33 (Synthroid) 100 mcg DAILY@06 PO 02/23/17 06:00 03/01/17 05:28 (Synthroid) 75 mcg DAILY@06 PO 02/23/17 06:00 03/01/17 05:28 (Heparin Inj) 5,000 units Q12HR SQ 02/24/17 09:00 Hold 02/26/17 08:08 (D50w (Vial) Inj) 25 ml UNSCH PRN IV PUSH 02/24/17 11:45 (Glucagon Inj) 1 mg UNSCH PRN OTHER 02/24/17 11:45 (Vitamin D3) 5,000 units DAILY PO 02/25/17 09:00 03/01/17 10:39 (Imodium) 2 mg Q6H PRN PO 02/24/17 20:30 02/24/17 20:54 (Lasix) 40 mg DAILY PO 02/25/17 09:00 03/01/17 10:38 (Lotrisone Cream) 1 applic Q12HR TOPICAL 02/27/17 09:00 03/01/17 09:00 (Mephyton) 2.5 mg DAILY PO 03/01/17 09:00 03/01/17 10:39 (Neurontin) 100 mg TID PO 02/28/17 13:00 03/01/17 10:39 Miscellaneous 1 ea 1 ea UNSCH PRN OTHER 02/28/17 12:00 Levofloxacin/ Dextrose 50 ml @ 100 mls/hr Q48H IV 03/01/17 18:00 Fluconazole/ Sodium Chloride 100 ml @ 100 mls/hr Q24H IV 02/28/17 22:00 02/28/17 22:31 (Zosyn 2.25 Gm Premix) 50 ml @ 100 mls/hr Q8H IV 02/28/17 23:00 03/01/17 15:48 (Januvia) 25 mg DAILY PO 03/01/17 09:00 03/01/17 10:39 (NS Flush) UNSCH PRN IVF 03/01/17 10:15 Heparin Sodium (Porcine) UNSCH PRN IV FLUSH 03/01/17 10:15 (NS 1000 ml Inj) 1,000 ml @ 0 mls/hr Q0M PRN IV 03/01/17 11:39 Heparin Sodium (Porcine) 8000 units 8,000 units UNSCH PRN IVF 03/01/17 11:45 Sodium Chloride 1,000 ml @ 200 mls/hr Q5H PRN IV 03/01/17 11:39 (NS 1000 ml Inj) 1,000 ml @ 0 mls/hr Q0M PRN IV 03/01/17 11:39 (Mannitol Inj) 12.5 gm UNSCH PRN IV 03/01/17 11:45 (Albumin 25% Inj) 25 gm UNSCH PRN IV 03/01/17 11:45 (NS Flush) 5 ml UNSCH PRN IV FLUSH 03/01/17 11:45 (Heparin Inj) UNSCH PRN .XX 03/01/17 11:45 (Gentamicin (Dialysis) Inj) 20 mg UNSCH PRN IV 03/01/17 11:45 (Zofran Inj) 4 mg UNSCH PRN IV 03/01/17 11:45 (Tylenol) 650 mg UNSCH PRN PO 03/01/17 11:45 (Benadryl) 25 mg UNSCH PRN PO 03/01/17 11:45 (Nitrostat Sl) 0.4 mg UNSCH PRN SL 03/01/17 11:45 (Catapres) 0.1 mg UNSCH PRN PO 03/01/17 11:45 (Gelfoam 12 Mm/7 Mm Top) 1 foam UNSCH PRN TOP 03/01/17 11:45 Vital Signs / I&O Vital Signs Date Time Temp Pulse Resp B/P Pulse Ox O2 Delivery O2 Flow Rate FiO2 03/01/17 16:33 30 03/01/17 16:32 94 30 03/01/17 12:12 100 40 03/01/17 12:00 69 03/01/17 12:00 98.0 69 18 127/70 100 03/01/17 12:00 40 03/01/17 10:00 80 03/01/17 08:12 40 03/01/17 08:09 100 40 03/01/17 08:00 98.1 80 14 114/62 100 03/01/17 08:00 77 03/01/17 08:00 40 03/01/17 07:00 100 Mechanical Ventilator 40 03/01/17 04:20 100 40 03/01/17 04:00 50 03/01/17 04:00 98.3 79 18 109/65 100 03/01/17 01:16 100 40 03/01/17 00:00 98.5 79 20 101/57 100 02/28/17 22:32 50 02/28/17 22:00 Mechanical Ventilator 50 02/28/17 21:30 99.5 80 25 138/64 100 02/28/17 21:23 100 100 02/28/17 21:03 65 15.00 100 02/28/17 20:10 96.4 93 22 96/53 88 02/28/17 20:05 Nasal Cannula 7.00 21 02/28/17 17:48 98.3 72 14 100/61 96 02/28/17 17:30 96.9 85 16 96/55 94 I/O 4/17/17 4/17/17 4/17/17 4/18/17 4/18/17 4/18/17 07:00 15:00 23:00 07:00 15:00 23:00 Intake Total 240 ml 500 ml 500 ml 987 ml 392 ml Output Total 600 ml 150 ml 150 ml 75 ml 100 ml Balance -360 ml 350 ml 350 ml 912 ml 292 ml Intake Oral 240 ml 360 ml IV Total 987 ml 115 ml Packed Cells 140 ml 250 ml FFP 217 ml Tube Irrigant 60 ml Other 250 ml Output Urine Total 600 ml 150 ml 150 ml 75 ml 100 ml # Bowel Movements 0 0 0 0 2 Physical Exam GENERAL: Intubated, on the vent SKIN: Warm and dry. HEAD: Normocephalic. EYES: No scleral icterus. No injection or drainage. NECK: Supple, trachea midline. No JVD or lymphadenopathy. CARDIOVASCULAR: Irreg rhythm without murmurs, gallops, or rubs. RESPIRATORY: Breath sounds equal bilaterally. No accessory muscle use. GASTROINTESTINAL: Abdomen soft, non-tender, nondistended. MUSCULOSKELETAL: No cyanosis, or edema, s/p R AKA Laboratory Laboratory Tests Test 02/28/17 02/28/17 02/28/17 02/28/17 17:18 21:06 22:05 22:40 Prothrombin Time 34.3 SEC Prothromb Time International 3.0 RATIO Ratio Activated Partial 56.3 SEC Thromboplast Time Fibrinogen 460 mg/dL Blood Gas Puncture Site LT BRACHIAL LT BRACHIAL Blood Gas Patient Temperature 98.6 98.6 Blood Gas HCO3 27 mmol/L 25 mmol/L Blood Gas Base Excess -1.6 mmol/L -1.5 mmol/L Blood Gas Oxygen Saturation 73 % 97 % Arterial Blood pH 7.13 7.26 Arterial Blood Partial 84 mmHg 57 mmHg Pressure CO2 Arterial Blood Partial 48 mmHg 291 mmHg Pressure O2 Arterial Blood Oxygen Content 12.0 Vol % 13.7 Vol % Arterial Blood 1.6 % 1.6 % Carboxyhemoglobin Arterial Blood Methemoglobin 0.9 % 1.0 % Blood Gas Hemoglobin 11.7 G/DL 9.5 G/DL Oxygen Delivery Device Non-Rebreathing VENTILATOR Mask Blood Gas Liter Flow 15 L/M Blood Gas Inspired Oxygen 100 % 100 % Blood Gas Ventilator Setting PRVC/AC Sodium Level 139 MEQ/L Potassium Level 4.7 MEQ/L Chloride Level 101 MEQ/L Carbon Dioxide Level 28.1 MEQ/L Anion Gap 10 MEQ/L Blood Urea Nitrogen 58 MG/DL Creatinine 5.38 MG/DL Estimat Glomerular Filtration 11 ML/MIN Rate Random Glucose 181 MG/DL Calcium Level 8.3 MG/DL White Blood Count 23.8 TH/MM3 Red Blood Count 3.26 MIL/MM3 Hemoglobin 9.4 GM/DL Hematocrit 28.9 % Mean Corpuscular Volume 88.4 FL Mean Corpuscular Hemoglobin 28.7 PG Mean Corpuscular Hemoglobin 32.4 % Concent Red Cell Distribution Width 16.1 % Platelet Count 262 TH/MM3 Mean Platelet Volume 8.6 FL Neutrophils (%) (Auto) 94.2 % Lymphocytes (%) (Auto) 0.6 % Monocytes (%) (Auto) 4.3 % Eosinophils (%) (Auto) 0.6 % Basophils (%) (Auto) 0.3 % Neutrophils # (Auto) 22.4 TH/MM3 Lymphocytes # (Auto) 0.1 TH/MM3 Monocytes # (Auto) 1.0 TH/MM3 Eosinophils # (Auto) 0.1 TH/MM3 Basophils # (Auto) 0.1 TH/MM3 CBC Comment AUTO DIFF Differential Comment AUTO DIFF CONFIRMED Test 03/01/17 03/01/17 04:40 07:51 White Blood Count 18.2 TH/MM3 Red Blood Count 2.83 MIL/MM3 Hemoglobin 8.2 GM/DL Hematocrit 24.9 % Mean Corpuscular Volume 88.0 FL Mean Corpuscular Hemoglobin 29.0 PG Mean Corpuscular Hemoglobin 33.0 % Concent Red Cell Distribution Width 15.6 % Platelet Count 221 TH/MM3 Mean Platelet Volume 8.9 FL Neutrophils (%) (Auto) 92.7 % Lymphocytes (%) (Auto) 2.7 % Monocytes (%) (Auto) 3.7 % Eosinophils (%) (Auto) 0.5 % Basophils (%) (Auto) 0.4 % Neutrophils # (Auto) 16.9 TH/MM3 Lymphocytes # (Auto) 0.5 TH/MM3 Monocytes # (Auto) 0.7 TH/MM3 Eosinophils # (Auto) 0.1 TH/MM3 Basophils # (Auto) 0.1 TH/MM3 CBC Comment DIFF FINAL Differential Comment Prothrombin Time 30.8 SEC Prothromb Time International 2.7 RATIO Ratio Sodium Level 138 MEQ/L Potassium Level 4.0 MEQ/L Chloride Level 103 MEQ/L Carbon Dioxide Level 24.0 MEQ/L Anion Gap 11 MEQ/L Blood Urea Nitrogen 56 MG/DL Creatinine 5.42 MG/DL Estimat Glomerular Filtration 11 ML/MIN Rate Random Glucose 126 MG/DL Calcium Level 8.2 MG/DL Blood Bank Comment Imaging Last Impressions Chest X-Ray 03/01/17 1001 Signed Impressions: Service Date/Time: Wednesday, March 01, 2017 10:21 - CONCLUSION: Left central line tip in good position. No evidence of pneumothorax. Stable left lower lobe consolidation. Davis Alves MD Foot X-Ray 02/22/17 0000 Signed Impressions: Service Date/Time: Wednesday, February 22, 2017 17:46 - CONCLUSION: Soft tissues extensive soft tissue emphysema, mottled in appearance very concerning for infection with gas-forming organism. No obvious osseous destruction is seen to suggest osteomyelitis. Abhi Seo MD Assessment and Plan Problem List: (1) PVD (peripheral vascular disease) (2) Unilateral AKA (3) Atrial fibrillation (4) Coagulopathy (5) Acute renal failure superimposed on stage 4 chronic kidney disease (6) Diabetes (7) Hypertension Assessment and Plan Wean vent as tolerated. A fib rate controlled. Continue ICU care. D/w pt's . Problem Qualifiers (1) Unilateral AKA: Qualified Code: Z89.611 - Unilateral AKA, right David Greenberg MD Mar 01, 2017 16:58
[2017-03-01] MEDS: HEPARIN SODIUM - IV 10,000 UNITS/10 ML VIAL PRN (17:33)
[2017-03-01] MEDS: GENTAMICIN SULFATE (DIALYSIS USE ONLY) 20 MG/2 ML VIAL IV PRN (17:34)
[2017-03-01 17:49] LABS: BLOOD GAS BASE EXCESS -0.1 mmol/L (-2-2); BLOOD GAS CARBOXYHEMOGLOBIN 1.4 % (0-4); BLOOD GAS HCO3 25 mmol/L (22-26); BLOOD GAS O2 HGB SATURATION 94 % (90-100); BLOOD GAS OXYGEN CONTENT 12.9 Vol % (12.0-20.0); BLOOD GAS PCO2 47 mmHg (38-42); BLOOD GAS PO2 80 mmHg (61-120); BLOOD GAS TOTAL HGB 9.7 G/DL (12.0-16.0); CRITICAL VALUE NO; FIO2 40 %; OXYGEN DEVICE VENT; TEMP CORR TO 98.6
[2017-03-01 17:50] LABS: DRAW SITE LT RADIAL; NUMBER OF ARTERIAL PUNCTURES 1; STAT NO; ULNAR PULSE PRESENT
[2017-03-01] MEDS ORDERED: fentaNYL DRIP 250 ML IV SCH (18:00)
[2017-03-01] MEDS ORDERED: LEVOFLOXACIN 250 MG PREMIX INJ 50 ML IV SCH (18:00)
--- NOTE | 2017-03-01 18:31 | PD.CAR.PN ---
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 Thanks J 02/23/17 Appreciate 's evaluation and second opinion. Completely agree. Will take patient to OR for staged surgeries. BKA today, followed by AKA Tuesday or Tuesday. PT/INR consistent with coagulopathy and sepsis superimposed on Coumadintherapy Receiving FFP now Will give K centra if needed after FFP transfused. PT/INR at noon 02/24/17 Patient post staged R leg BK amputation for gangrene uf the foot and sepsis. Patient improved greatly since yesterday. For second stage surgery (R AKA) tomorrow. Agree with transfusion and will check PT/INR in am 02/26/2017 Status post right staged amputation and BKA followed by AKShanae Dressing intact Patient resting comfortably We will leave original dressing on until Tuesday and then change it Patient has some phantom pain today and may need some Neurontin or equivalent 02/28/17 R AKA stump dry, incision clean Change dressing daily Stiches will remain in place for 3 weeks total Patient can be transferred to rehab/SNF from my point any time 03/01/17 Patient end up in the ICU throughout the night due to congestive failure and respiratory insufficiency but this is not improved Right AKA stump is clean and dry and healing nicely Nothing to add to care from surgical vascular point Objective: Vital Signs Date Time Temp Pulse Resp B/P Pulse Ox O2 Delivery O2 Flow Rate FiO2 03/01/17 16:33 30 03/01/17 16:32 94 30 03/01/17 12:12 100 40 03/01/17 12:00 69 03/01/17 12:00 98.0 69 18 127/70 100 03/01/17 12:00 40 03/01/17 10:00 80 03/01/17 08:12 40 03/01/17 08:09 100 40 03/01/17 08:00 98.1 80 14 114/62 100 03/01/17 08:00 77 03/01/17 08:00 40 03/01/17 07:00 100 Mechanical Ventilator 40 03/01/17 04:20 100 40 03/01/17 04:00 50 03/01/17 04:00 98.3 79 18 109/65 100 03/01/17 01:16 100 40 03/01/17 00:00 98.5 79 20 101/57 100 02/28/17 22:32 50 02/28/17 22:00 Mechanical Ventilator 50 02/28/17 21:30 99.5 80 25 138/64 100 02/28/17 21:23 100 100 02/28/17 21:03 65 15.00 100 02/28/17 20:10 96.4 93 22 96/53 88 02/28/17 20:05 Nasal Cannula 7.00 21 Labs: Laboratory Tests Test 03/01/17 03/01/17 07:51 17:38 Blood Bank Comment Blood Gas Puncture Site LT RADIAL Blood Gas Patient Temperature 98.6 Blood Gas HCO3 25 mmol/L (22-26) Blood Gas Base Excess -0.1 mmol/L (-2-2) Blood Gas Oxygen Saturation 94 % (90-100) Arterial Blood pH 7.34 (7.380-7.420) Arterial Blood Partial 47 mmHg (38-42) Pressure CO2 Arterial Blood Partial 80 mmHg Pressure O2 (61-120) Arterial Blood Oxygen Content 12.9 Vol % (12.0-20.0) Arterial Blood 1.4 % (0-4) Carboxyhemoglobin Arterial Blood Methemoglobin 1.0 % (0-2) Blood Gas Hemoglobin 9.7 G/DL (12.0-16.0) Oxygen Delivery Device VENT Blood Gas Ventilator Setting CPAP/03/18/40 Blood Gas Inspired Oxygen 40 % Result Diagram: 03/01/1743903/01/17439 (1) PVD (peripheral vascular disease) (2) Unilateral AKA (3) Atrial fibrillation (4) Coagulopathy (5) Acute renal failure superimposed on stage 4 chronic kidney disease (6) Diabetes (7) Hypertension Problem Qualifiers (1) Unilateral AKA: Qualified Code: Z89.611 - Unilateral AKA, right Jeovany Ernst MD Mar 01, 2017 18:31
--- NOTE | 2017-03-01 19:27 | HHI.PR ---
Subjective Remarks YOWM with COPD, Hypercapnoic RF, s/p Right AKA Weaned to CPAP Opens eyes No Fever Objective Vital Signs Vital Signs Date Time Temp Pulse Resp B/P Pulse Ox O2 Delivery O2 Flow Rate FiO2 03/01/17 18:00 83 03/01/17 16:33 30 03/01/17 16:32 94 30 03/01/17 16:00 88 03/01/17 16:00 97.2 88 18 115/62 100 03/01/17 16:00 40 03/01/17 14:00 74 03/01/17 12:12 100 40 03/01/17 12:00 69 03/01/17 12:00 98.0 69 18 127/70 100 03/01/17 12:00 40 03/01/17 10:00 80 03/01/17 08:12 40 03/01/17 08:09 100 40 03/01/17 08:00 98.1 80 14 114/62 100 03/01/17 08:00 77 03/01/17 08:00 40 03/01/17 07:00 100 Mechanical Ventilator 40 03/01/17 04:20 100 40 03/01/17 04:00 50 03/01/17 04:00 98.3 79 18 109/65 100 03/01/17 01:16 100 40 03/01/17 00:00 98.5 79 20 101/57 100 02/28/17 22:32 50 02/28/17 22:00 Mechanical Ventilator 50 02/28/17 21:30 99.5 80 25 138/64 100 02/28/17 21:23 100 100 02/28/17 21:03 65 15.00 100 02/28/17 20:10 96.4 93 22 96/53 88 02/28/17 20:05 Nasal Cannula 7.00 21 I/O 02/28/17 02/28/17 02/28/17 03/01/17 03/01/17 03/01/17 07:00 15:00 23:00 07:00 15:00 23:00 Intake Total 240 ml 500 ml 500 ml 987 ml 392 ml Output Total 600 ml 150 ml 150 ml 75 ml 100 ml 2000 ml Balance -360 ml 350 ml 350 ml 912 ml 292 ml -2000 ml Intake Oral 240 ml 360 ml IV Total 987 ml 115 ml Packed Cells 140 ml 250 ml FFP 217 ml Tube Irrigant 60 ml Other 250 ml Output Urine Total 600 ml 150 ml 150 ml 75 ml 100 ml Hemodialysis 2000 ml # Bowel Movements 0 0 0 0 2 Result Diagram: 03/01/1743903/01/17439 Objective Remarks GENERAL: MBMN WM, on Vent SKIN: Warm and dry. HEAD: Normocephalic. EYES: No scleral icterus. No injection or drainage. NECK: Supple, trachea midline. No JVD or lymphadenopathy. CARDIOVASCULAR: Regular rate and rhythm without murmurs, gallops, or rubs. RESPIRATORY: Breath sounds equal bilaterally. No accessory muscle use. GASTROINTESTINAL: Abdomen soft, non-tender, nondistended. MUSCULOSKELETAL: No cyanosis, or edema. Right AKA BACK: Nontender without obvious deformity. No CVA tenderness. A/P Assessment and Plan VDRF Hypercapnoic RF COPD AF DM S/P Right AKA PLAN: Vent Support CPAP / Aerosol nebs Cont Abx Monitor Ronny Kan MD Mar 01, 2017 19:27
[2017-03-01] MEDS: ATORVASTATIN 40 MG TAB PO SCH (21:42)
[2017-03-01] MEDS: FLUCONAZOLE/NACL 200 MG/100 ML IV SCH (21:43)
[2017-03-02] VITALS (17 sets, daily range): BP systolic 101–144; BP diastolic 58–78; PULSE 76–97; RESP 14–24; TEMP 97.7–99.7; O2SAT 98–100
[2017-03-02 05:18] LABS: AUTOMATED NEUTROPHIL # 13.8 TH/MM3 (1.8-7.7); BASOPHIL % 0.1 % (0.0-2.0); EOSINOPHIL # 0.2 TH/MM3 (0-0.4); EOSINOPHIL % 1.2 % (0.0-4.0); HEMATOCRIT 24.5 % (39.0-51.0); HEMO FLAGS DIFF FINAL; LYMPH % 3.1 % (9.0-44.0); LYMPHOCYTE # 0.5 TH/MM3 (1.0-4.8); MEAN CELL VOLUME 87.6 FL (80.0-100.0); MEAN CORPUSCULAR HEMOGLOBIN 28.9 PG (27.0-34.0); MONO % 5.7 % (0.0-8.0); NEUT % 89.9 % (16.0-70.0); PLATELET COUNT 244 TH/MM3 (150-450); RED CELL DISTRIBUTION WIDTH 15.5 % (11.6-17.2); WHITE BLOOD COUNT 15.4 TH/MM3 (4.0-11.0)
[2017-03-02 05:29] LABS: INTERNATIONAL NORMALIZED RATIO 2.3 RATIO; PROTHROMBIN TIME - PATIENT 26.3 SEC (9.8-11.6)
[2017-03-02 05:42] LABS: ALKALINE PHOSPHATASE 102 U/L (45-117); ALT (GPT) 10 U/L (12-78); ANION GAP 14 MEQ/L (5-15); AST (GOT) 27 U/L (15-37); BICARBONATE 25.3 MEQ/L (21.0-32.0); BLOOD UREA NITROGEN 42 MG/DL (7-18); CHLORIDE 101 MEQ/L (98-107); GLOMERULAR FILTRATION RATE 13 ML/MIN (>89); MAGNESIUM 1.7 MG/DL (1.5-2.5); POTASSIUM 3.7 MEQ/L (3.5-5.1); SODIUM (NA) 140 MEQ/L (136-145); TOTAL BILIRUBIN ADULT 0.7 MG/DL (0.2-1.0)
[2017-03-02] MEDS: LEVOTHYROXINE SODIUM 100 MCG TAB PO SCH (06:14)
[2017-03-02] MEDS: INSULIN NovoLIN REGULAR SUPPLEMENTAL SCALE SQ SCH ×4 (06:14→20:30)
[2017-03-02] MEDS: LEVOTHYROXINE SODIUM 75 MCG TAB PO SCH (06:14)
[2017-03-02] MEDS: PIPERACIL-TAZO 2.25 GM PREMIX 50 ML IV SCH ×2 (06:20→15:45)
--- NOTE | 2017-03-02 06:40 | RADRPT ---
EXAM DATE/TIME: 03/02/2017 05:26 [facility] COMPARISON: CHEST SINGLE AP, March 01, 2017, 10:21. CHEST SINGLE AP, February 28, 2017, 21:45. INDICATIONS : Shortness of breath. MEDICAL HISTORY : None. SURGICAL HISTORY : None. ENCOUNTER: Subsequent ACUITY: 2 weeks PAIN SCORE: 0/10 LOCATION: Bilateral chest FINDINGS: A single view of the chest demonstrates the endotracheal, nasogastric tube and bilateral IJ catheters are in good position. The cardiac silhouette is enlarged. Persistent atelectasis consolidation left lung base is unchanged. Osseous structures are intact. CONCLUSION: Dense consolidation left lower lobe. Tubes and catheters are in good position. Gabriel Beavers MD on March 02, 2017 at 6:38 Board Certified Radiologist. This report was verified electronically.
--- NOTE | 2017-03-02 07:34 | PD.ONC.PN ---
Subjective Subjective Remarks The patient had a vascath placed yesterday and was started on HD, he remains intubated and is on the vent. He is awake and is trying to communicate. No overt bleeding noted or reported. Objective Data Date Time Temp Pulse Resp B/P Pulse Ox O2 Delivery O2 Flow Rate FiO2 03/02/17 06:00 83 03/02/17 04:00 40 03/02/17 04:00 97.8 90 24 119/72 100 03/02/17 04:00 90 03/02/17 03:50 100 30 03/02/17 02:00 83 03/02/17 01:45 98 30 03/02/17 00:00 40 03/02/17 00:00 82 03/02/17 00:00 97.7 82 20 105/63 100 03/01/17 22:00 92 03/01/17 20:34 100 30 03/01/17 20:00 97.9 93 11 146/69 97 03/01/17 20:00 40 03/01/17 20:00 93 03/01/17 19:00 Mechanical Ventilator 30 03/01/17 18:00 83 03/01/17 16:33 30 03/01/17 16:32 94 30 03/01/17 16:00 88 03/01/17 16:00 97.2 88 18 115/62 100 03/01/17 16:00 40 03/01/17 14:00 74 03/01/17 12:12 100 40 03/01/17 12:00 69 03/01/17 12:00 98.0 69 18 127/70 100 03/01/17 12:00 40 03/01/17 10:00 80 03/01/17 08:12 40 03/01/17 08:09 100 40 03/01/17 08:00 98.1 80 14 114/62 100 03/01/17 08:00 77 03/01/17 08:00 40 03/02/17 03/02/17 03/02/17 07:00 15:00 23:00 Intake Total 280 ml Output Total 50 ml Balance 230 ml Result Diagram: 03/02/17 0445 03/02/17 0445 Laboratory Results Laboratory Tests Test 03/01/17 03/01/17 03/02/17 03/02/17 07:51 17:38 04:45 05:00 Blood Bank Comment Blood Gas Puncture Site LT RADIAL Blood Gas Patient Temperature 98.6 Blood Gas HCO3 25 mmol/L Blood Gas Base Excess -0.1 mmol/L Blood Gas Oxygen Saturation 94 % Arterial Blood pH 7.34 Arterial Blood Partial 47 mmHg Pressure CO2 Arterial Blood Partial 80 mmHg Pressure O2 Arterial Blood Oxygen Content 12.9 Vol % Arterial Blood 1.4 % Carboxyhemoglobin Arterial Blood Methemoglobin 1.0 % Blood Gas Hemoglobin 9.7 G/DL Oxygen Delivery Device VENT Blood Gas Ventilator Setting CPAP/03/18/40 Blood Gas Inspired Oxygen 40 % White Blood Count 15.4 TH/MM3 Red Blood Count 2.80 MIL/MM3 Hemoglobin 8.1 GM/DL Hematocrit 24.5 % Mean Corpuscular Volume 87.6 FL Mean Corpuscular Hemoglobin 28.9 PG Mean Corpuscular Hemoglobin 33.0 % Concent Red Cell Distribution Width 15.5 % Platelet Count 244 TH/MM3 Mean Platelet Volume 9.2 FL Neutrophils (%) (Auto) 89.9 % Lymphocytes (%) (Auto) 3.1 % Monocytes (%) (Auto) 5.7 % Eosinophils (%) (Auto) 1.2 % Basophils (%) (Auto) 0.1 % Neutrophils # (Auto) 13.8 TH/MM3 Lymphocytes # (Auto) 0.5 TH/MM3 Monocytes # (Auto) 0.9 TH/MM3 Eosinophils # (Auto) 0.2 TH/MM3 Basophils # (Auto) 0.0 TH/MM3 CBC Comment DIFF FINAL Differential Comment Sodium Level 140 MEQ/L Potassium Level 3.7 MEQ/L Chloride Level 101 MEQ/L Carbon Dioxide Level 25.3 MEQ/L Anion Gap 14 MEQ/L Blood Urea Nitrogen 42 MG/DL Creatinine 4.60 MG/DL Estimat Glomerular Filtration 13 ML/MIN Rate Random Glucose 88 MG/DL Calcium Level 8.1 MG/DL Magnesium Level 1.7 MG/DL Total Bilirubin 0.7 MG/DL Aspartate Amino Transf 27 U/L (AST/SGOT) Alanine Aminotransferase 10 U/L (ALT/SGPT) Alkaline Phosphatase 102 U/L Total Protein 5.7 GM/DL Albumin 1.6 GM/DL Prothrombin Time 26.3 SEC Prothromb Time International 2.3 RATIO Ratio Culture Results Microbiology Date/Time Procedure Status Source Growth 02/28/17 17:10 Aerobic Blood Culture - Preliminary Resulted Blood Peripheral NO GROWTH IN 1 DAY 02/28/17 17:10 Anaerobic Blood Culture - Preliminary Resulted Blood Peripheral NO GROWTH IN 1 DAY 02/28/17 17:15 Aerobic Blood Culture - Preliminary Resulted Blood Peripheral NO GROWTH IN 1 DAY 02/28/17 17:15 Anaerobic Blood Culture - Preliminary Resulted Blood Peripheral NO GROWTH IN 1 DAY Imaging Studies Last 24 hours Impressions Chest X-Ray 03/02/17 0600 Signed Impressions: Service Date/Time: Thursday, March 02, 2017 05:26 - CONCLUSION: Dense consolidation left lower lobe. Tubes and catheters are in good position. Gabriel Beavers MD Chest X-Ray 03/01/17 1001 Signed Impressions: Service Date/Time: Wednesday, March 01, 2017 10:21 - CONCLUSION: Left central line tip in good position. No evidence of pneumothorax. Stable left lower lobe consolidation. Davis Alves MD Administered Medications Medications (Trade) Dose Ordered Sig/[place] Route PRN Reason Start Time Stop Time Status Last Admin Dose Admin Sodium Chloride (NS Flush) 2 ml BID IV FLUSH 02/22/17 21:00 03/01/17 21:00 Acetaminophen/ Hydrocodone Bitart ([place] 10-325 Mg) 1 tab Q4H PRN PO PAIN SCALE 1 TO 7 02/22/17 18:15 02/28/17 09:01 Atenolol (Tenormin) 100 mg BID PO 02/22/17 21:00 03/01/17 21:42 Atorvastatin Calcium (Lipitor) 40 mg HS PO 02/22/17 21:00 03/01/17 21:42 Clonidine (Catapres) 0.1 mg BID PO 02/22/17 21:00 03/01/17 21:42 Diltiazem HCl (Cardizem Cd) 240 mg DAILY PO 02/23/17 09:00 02/28/17 08:33 Sodium Bicarbonate (Sodium Bicarbonate) 650 mg TIDPC PO 02/22/17 18:30 03/01/17 17:59 Pantoprazole Sodium (Protonix) 40 mg DAILY PO 02/23/17 09:00 02/28/17 08:33 Levothyroxine Sodium (Synthroid) 100 mcg DAILY@06 PO 02/23/17 06:00 03/02/17 06:14 Levothyroxine Sodium (Synthroid) 75 mcg DAILY@06 PO 02/23/17 06:00 03/02/17 06:14 Heparin Sodium (Porcine) (Heparin Inj) 5,000 units Q12HR SQ 02/24/17 09:00 Hold 02/26/17 08:08 Cholecalciferol (Vitamin D3) 5,000 units DAILY PO 02/25/17 09:00 03/01/17 10:39 Loperamide HCl (Imodium) 2 mg Q6H PRN PO DIARRHEA 02/24/17 20:30 02/24/17 20:54 Furosemide (Lasix) 40 mg DAILY PO 02/25/17 09:00 03/01/17 10:38 Betamethasone/ Clotrimazole (Lotrisone Cream) 1 applic Q12HR TOPICAL 02/27/17 09:00 03/01/17 21:00 Phytonadione (Mephyton) 2.5 mg DAILY PO 03/01/17 09:00 03/01/17 10:39 Gabapentin 100 mg 100 mg TID PO 02/28/17 13:00 03/01/17 17:59 Levofloxacin/ Dextrose 50 ml @ 100 mls/hr Q48H IV 03/01/17 18:00 03/01/17 17:59 Fluconazole/ Sodium Chloride 100 ml @ 100 mls/hr Q24H IV 02/28/17 22:00 03/01/17 21:43 Piperacillin Sod/ Tazobactam Sod (Zosyn 2.25 Gm Premix) 50 ml @ 100 mls/hr Q8H IV 02/28/17 23:00 03/02/17 06:20 Sitagliptin Phosphate (Januvia) 25 mg DAILY PO 03/01/17 09:00 03/01/17 10:39 Heparin Sodium (Porcine) (Heparin Inj) UNSCH PRN .XX WITH DIALYSIS 03/01/17 11:45 03/01/17 17:33 Gentamicin Sulfate (Gentamicin (Dialysis) Inj) 20 mg UNSCH PRN IV WITH DIALYSIS 03/01/17 11:45 03/01/17 17:34 Objective Remarks GENERAL PHYSICAL APPEARANCE: Mr. Zendejas is an elderly male, he is laying in bed, awake and alert, intubated. HEENT: Head atraumatic, normocephalic, conjunctive are pale sclerae anicteric, EOMI, PERRLA, he has had a right-sided cataract surgery. Oral exam, no pharyngeal erythema. Poor dental hygiene. NECK: No palpable cervical or supraclavicular lymphadenopathy. R IJ TLC, L IJ Vascath. RESPIRATORY: He had good air movement bilaterally. No added breath sounds. CARDIOVASCULAR: Irregular rhythm, S1-S2. No obvious murmurs, rubs or gallops. ABDOMEN: Protuberant belly, soft and nontender, nondistended, no palpable organ enlargement. EXTREMITIES: Lower extremity, right side above the knee amputation. The surgical dressings are clean and without blood stains. The left lower extremity: He has scaling of the leg, atrophy of the muscles, no open wounds but a great of skin dryness. 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 Assessment/Plan Problem List: (1) Anemia Status: Acute Plan: -- Likely secondary to acute blood loss compounded by renal failure and chronic illness. --transfuse as needed (2) Coagulopathy Status: Chronic Plan: Likely multifactorial secondary to vitamin K deficiency, consumption secondary to recent surgery, consumption secondary to recent sepsis and likely decreased hepatic synthetic function (as evidenced by decreased albumin levels). Recommend continuation of vitamin K replacement (oral). FFP infusion today prior to Vas-Cath placement. Assessment 71y/o male with supratherapeutic INR in a patient with sepsis secondary to gangrene. --history of atrial fibrillation --has been on Warfarin >10 years. 2.5 mg daily six days a week and 2 mg one day a week. This helped maintain his INR at about 2.5. --s/p right [id number] amputation on 02/23/2017. h/o Diabetes Peripheral vascular disease tobaccoism Agent orange exposure Advanced stage chronic kidney failure Hyperlipidemia Gastroesophageal reflux disease Hypertension Hypothyroidism Plan 1. Continue vitamin K 2.5mg PO daily 2. Monitor INR, presently ranges between 2.5 - 3. 3. Supportive red blood cell transfusion to maintain hemoglobin above 8 g/dL. 4. Fibrinogen level was elevated. Michael Martinez MD Mar 02, 2017 07:34
[2017-03-02] MEDS: PANTOPRAZOLE SOD 40 MG DELAYED RELEASE TAB PO SCH (07:48)
[2017-03-02] MEDS: DILTIAZEM-CD 240 MG CAP ER PO SCH (07:52)
[2017-03-02] MEDS: SODIUM CHLORIDE 0.9% FLUSH 10 ML FLUSH IV FLUSH SCH ×2 (08:00→20:30)
[2017-03-02] MEDS: FUROSEMIDE 40 MG TAB PO SCH (08:00)
[2017-03-02] MEDS ORDERED: DILTIAZEM HCL 60 MG TAB PO ONE (08:00)
[2017-03-02] MEDS: cloNIDine HCL 0.1 MG TAB PO SCH ×2 (08:00→20:17)
[2017-03-02] MEDS: ATENOLOL 100 MG TAB PO SCH ×2 (08:01→20:30)
[2017-03-02] MEDS: SODIUM BICARBONATE 650 MG TAB PO SCH ×3 (08:01→16:39)
[2017-03-02] MEDS: CHOLECALCIFEROL (VIT D3) 5000 UNIT CAP PO SCH (08:01)
[2017-03-02] MEDS: GABAPENTIN 100 MG CAP PO SCH ×3 (08:01→16:39)
[2017-03-02] MEDS: PHYTONADIONE 5 MG TAB PO SCH (08:01)
[2017-03-02] MEDS: BETAMETHASONE/CLOTRIMAZOLE CREAM 15 GM TOPICAL SCH ×2 (08:04→20:30)
--- NOTE | 2017-03-02 08:06 | HHI.CCPN ---
Subjective Remarks/Hospital Course 71-year-old male with history of atrial fibrillation, and poorly controlled diabetes admitted with complaint of generalized weakness. Patient has had a wound on the right foot for a reported 3-4 years. 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 Patient is nonambulatory at baseline. He was on a regular surgical floor without a rapid response was called for decreased responsiveness and hypercapnic respiratory failure with severe respiratory acidosis. SUBJ 03/01: remains intubated, sedated with low dose Versed and Fentanyl. Wakes up easily follows commands. 03/02: Awake off sedation, following commands. Remains orally intubated on mechanical ventilation. Objective Vital Signs Date Time Temp Pulse Resp B/P Pulse Ox O2 Delivery O2 Flow Rate FiO2 03/02/17 06:00 83 03/02/17 04:00 40 03/02/17 04:00 97.8 24 119/72 100 03/01/17 19:00 Mechanical Ventilator 02/28/17 21:03 15.00 Intake and Output 03/01/17 03/01/17 03/02/17 08:00 16:00 00:00 Intake Total 987 ml 392 ml 185 ml Output Total 75 ml 100 ml 2050 ml Balance 912 ml 292 ml -1865 ml Result Diagram: 03/02/17 0445 03/02/17 0445 Other Results Laboratory Tests Test 03/01/17 03/02/17 03/02/17 17:38 04:45 05:00 Blood Gas Puncture Site LT RADIAL Blood Gas Patient Temperature 98.6 Blood Gas HCO3 25 mmol/L Blood Gas Base Excess -0.1 mmol/L Blood Gas Oxygen Saturation 94 % Arterial Blood pH 7.34 Arterial Blood Partial 47 mmHg Pressure CO2 Arterial Blood Partial 80 mmHg Pressure O2 Arterial Blood Oxygen Content 12.9 Vol % Arterial Blood 1.4 % Carboxyhemoglobin Arterial Blood Methemoglobin 1.0 % Blood Gas Hemoglobin 9.7 G/DL Oxygen Delivery Device VENT Blood Gas Ventilator Setting CPAP/5/5/40 Blood Gas Inspired Oxygen 40 % White Blood Count 15.4 TH/MM3 Red Blood Count 2.80 MIL/MM3 Hemoglobin 8.1 GM/DL Hematocrit 24.5 % Mean Corpuscular Volume 87.6 FL Mean Corpuscular Hemoglobin 28.9 PG Mean Corpuscular Hemoglobin 33.0 % Concent Red Cell Distribution Width 15.5 % Platelet Count 244 TH/MM3 Mean Platelet Volume 9.2 FL Neutrophils (%) (Auto) 89.9 % Lymphocytes (%) (Auto) 3.1 % Monocytes (%) (Auto) 5.7 % Eosinophils (%) (Auto) 1.2 % Basophils (%) (Auto) 0.1 % Neutrophils # (Auto) 13.8 TH/MM3 Lymphocytes # (Auto) 0.5 TH/MM3 Monocytes # (Auto) 0.9 TH/MM3 Eosinophils # (Auto) 0.2 TH/MM3 Basophils # (Auto) 0.0 TH/MM3 CBC Comment DIFF FINAL Differential Comment Sodium Level 140 MEQ/L Potassium Level 3.7 MEQ/L Chloride Level 101 MEQ/L Carbon Dioxide Level 25.3 MEQ/L Anion Gap 14 MEQ/L Blood Urea Nitrogen 42 MG/DL Creatinine 4.60 MG/DL Estimat Glomerular Filtration 13 ML/MIN Rate Random Glucose 88 MG/DL Calcium Level 8.1 MG/DL Magnesium Level 1.7 MG/DL Total Bilirubin 0.7 MG/DL Aspartate Amino Transf 27 U/L (AST/SGOT) Alanine Aminotransferase 10 U/L (ALT/SGPT) Alkaline Phosphatase 102 U/L Total Protein 5.7 GM/DL Albumin 1.6 GM/DL Prothrombin Time 26.3 SEC Prothromb Time International 2.3 RATIO Ratio Imaging Last Impressions Chest X-Ray 03/02/17 0600 Signed Impressions: Service Date/Time: Thursday, March 02, 2017 05:26 - CONCLUSION: Dense consolidation left lower lobe. Tubes and catheters are in good position. Gabriel Beavers MD Foot X-Ray 02/22/17 0000 Signed Impressions: Service Date/Time: Wednesday, February 22, 2017 17:46 - CONCLUSION: Soft tissues extensive soft tissue emphysema, mottled in appearance very concerning for infection with gas-forming organism. No obvious osseous destruction is seen to suggest osteomyelitis. Abhi Seo MD Objective Remarks GENERAL: Elderly man, intubated on mechanical ventilation SKIN: Warm and dry. HEAD: Normocephalic. EYES: No scleral icterus. No injection or drainage. NECK: Supple, trachea midline. No JVD or lymphadenopathy. CARDIOVASCULAR: Regular rate and rhythm without murmurs, gallops, or rubs. RESPIRATORY: Breath sounds equal bilaterally. No accessory muscle use. GASTROINTESTINAL: Abdomen soft, non-tender, nondistended. MUSCULOSKELETAL: No cyanosis, or edema. BACK: Nontender without obvious deformity. No CVA tenderness. EXTREMITIES: Status post Right AKA, stump without signs of bleeding, or infection. NEURO: Off sedation, awake and alert, following commands, orally intubated on mechanical ventilation. A/P Assessment and Plan NEURO: -Was on Versed and fentanyl for sedation/ analgesia -Daily sedation vacation, Follow Neuro status RESP: Respiratory failure, Hypercapnic - Possible narcotic effect - Intubated in the ICU - Mechanical ventilation - Started SBT, possible extubation. CVS: Atrial fibrillation - Rate controlled - Cardiology follow-up appreciated - Diltiazem - Atenolol Hypertension - Clonidine - Lasix - Atenolol ID Sepsis with proteus and Enterococcus due to wet gangrene R foot -s/p staged amputation, now with R AKA by Dr. Samano -wound C/S Proteus, Enterococcus and PSAE. Blood cx 02/22 Proteus and enterococcus -Antibiotics per ID (vancomycin and Zosyn and Levaquin. Diflucan added by ID 02/12 `7 -Follow-up cultures GI: GERD - PPI RENAL: Renal Failure - Monitor urine output- - Monitor electrolytes - Monitor creatinine - Nephrology planning on PermCath placement eventually. LIJ vascath placed on . Plan for HD per nephrology. ENDO: Diabetes mellitus - Insulin sliding scale Thyroid Disease - Levothyroxine Dyslipidemia - Atorvastatin HEME: Supratherapeutic INR - Management per hematology. INR 2.3 today DVT GI prophylaxis - Teds SCDs - Monitor INR - PPI Critical Care: The total critical care time was 35 minutes. Time to perform other separately billable procedures was not included in the critical care time. Shai Cervantes MD Mar 02, 2017 08:06
--- NOTE | 2017-03-02 08:29 | HHI.PR ---
Subjective Remarks Patient is intubated following commands. CPAP currently plans to extubate today Objective Vital Signs Date Time Temp Pulse Resp B/P Pulse Ox O2 Delivery O2 Flow Rate FiO2 03/02/17 06:00 83 03/02/17 04:00 40 03/02/17 04:00 97.8 90 24 119/72 100 03/02/17 04:00 90 03/02/17 03:50 100 30 03/02/17 02:00 83 03/02/17 01:45 98 30 03/02/17 00:00 40 03/02/17 00:00 82 03/02/17 00:00 97.7 82 20 105/63 100 03/01/17 22:00 92 03/01/17 20:34 100 30 03/01/17 20:00 97.9 93 11 146/69 97 03/01/17 20:00 40 03/01/17 20:00 93 03/01/17 19:00 Mechanical Ventilator 30 03/01/17 18:00 83 03/01/17 16:33 30 03/01/17 16:32 94 30 03/01/17 16:00 88 03/01/17 16:00 97.2 88 18 115/62 100 03/01/17 16:00 40 03/01/17 14:00 74 03/01/17 12:12 100 40 03/01/17 12:00 69 03/01/17 12:00 98.0 69 18 127/70 100 03/01/17 12:00 40 03/01/17 10:00 80 I/O 03/01/17 03/01/17 03/01/17 03/02/17 03/02/17 03/02/17 07:00 15:00 23:00 07:00 15:00 23:00 Intake Total 987 ml 392 ml 185 ml 280 ml Output Total 75 ml 100 ml 2050 ml 50 ml Balance 912 ml 292 ml -1865 ml 230 ml IV Total 987 ml 115 ml 140 ml 220 ml FFP 217 ml Tube Irrigant 60 ml 45 ml 60 ml Output Urine Total 75 ml 100 ml 50 ml 50 ml Hemodialysis 2000 ml # Bowel Movements 0 2 Result Diagram: 03/02/17 0445 03/02/17 0445 Procedures 02/23 BKA of right leg 02/25 AKA r leg Objective Remarks GENERAL: Intubated on sedation SKIN: Warm and dry. Discoloration in lower extremity HEAD: Normocephalic. EYES: No scleral icterus. No injection or drainage. NECK: Supple, trachea midline. No JVD or lymphadenopathy. CARDIOVASCULAR: Regular rate and rhythm without murmurs, gallops, or rubs. RESPIRATORY: Breath sounds equal bilaterally. No accessory muscle use. Intubated GASTROINTESTINAL: Abdomen soft, non-tender, nondistended. MUSCULOSKELETAL: No cyanosis, or edema. Status post right AKA. Dressing on BACK: Nontender without obvious deformity. No CVA tenderness. Medications and IVs Current Medications Medications (Trade) Dose Ordered Sig/[place] Route Start Time Stop Time Status Last Admin (NS Flush) 2 ml UNSCH PRN IV FLUSH 02/22/17 18:15 (NS Flush) 2 ml BID IV FLUSH 02/22/17 21:00 03/02/17 08:00 (Zofran Inj) 4 mg Q6H PRN IVP 02/22/17 18:15 (Narcan Inj) 0.4 mg UNSCH PRN IV 02/22/17 18:15 ([place] 10-325 Mg) 1 tab Q4H PRN PO 02/22/17 18:15 02/28/17 09:01 (Tenormin) 100 mg BID PO 02/22/17 21:00 03/02/17 08:01 (Lipitor) 40 mg HS PO 02/22/17 21:00 03/01/17 21:42 (Catapres) 0.1 mg BID PO 02/22/17 21:00 03/02/17 08:00 (Cardizem Cd) 240 mg DAILY PO 02/23/17 09:00 02/28/17 08:33 (Sodium Bicarbonate) 650 mg TIDPC PO 02/22/17 18:30 03/02/17 08:01 (Protonix) 40 mg DAILY PO 02/23/17 09:00 02/28/17 08:33 (Synthroid) 100 mcg DAILY@06 PO 02/23/17 06:00 03/02/17 06:14 (Synthroid) 75 mcg DAILY@06 PO 02/23/17 06:00 03/02/17 06:14 (Heparin Inj) 5,000 units Q12HR SQ 02/24/17 09:00 Hold 02/26/17 08:08 (D50w (Vial) Inj) 25 ml UNSCH PRN IV PUSH 02/24/17 11:45 (Glucagon Inj) 1 mg UNSCH PRN OTHER 02/24/17 11:45 (Vitamin D3) 5,000 units DAILY PO 02/25/17 09:00 03/02/17 08:01 (Imodium) 2 mg Q6H PRN PO 02/24/17 20:30 02/24/17 20:54 (Lasix) 40 mg DAILY PO 02/25/17 09:00 03/02/17 08:00 (Lotrisone Cream) 1 applic Q12HR TOPICAL 02/27/17 09:00 03/01/17 21:00 (Mephyton) 2.5 mg DAILY PO 03/01/17 09:00 03/02/17 08:01 (Neurontin) 100 mg TID PO 02/28/17 13:00 03/02/17 08:01 Miscellaneous 1 ea 1 ea UNSCH PRN OTHER 02/28/17 12:00 Levofloxacin/ Dextrose 50 ml @ 100 mls/hr Q48H IV 03/01/17 18:00 03/01/17 17:59 Fluconazole/ Sodium Chloride 100 ml @ 100 mls/hr Q24H IV 02/28/17 22:00 03/01/17 21:43 (Zosyn 2.25 Gm Premix) 50 ml @ 100 mls/hr Q8H IV 02/28/17 23:00 03/02/17 06:20 (Januvia) 25 mg DAILY PO 03/01/17 09:00 03/02/17 08:00 (NS Flush) UNSCH PRN IVF 03/01/17 10:15 Heparin Sodium (Porcine) UNSCH PRN IV FLUSH 03/01/17 10:15 (NS 1000 ml Inj) 1,000 ml @ 0 mls/hr Q0M PRN IV 03/01/17 11:39 Heparin Sodium (Porcine) 8000 units 8,000 units UNSCH PRN IVF 03/01/17 11:45 Sodium Chloride 1,000 ml @ 200 mls/hr Q5H PRN IV 03/01/17 11:39 (NS 1000 ml Inj) 1,000 ml @ 0 mls/hr Q0M PRN IV 03/01/17 11:39 (Mannitol Inj) 12.5 gm UNSCH PRN IV 03/01/17 11:45 (Albumin 25% Inj) 25 gm UNSCH PRN IV 03/01/17 11:45 (NS Flush) 5 ml UNSCH PRN IV FLUSH 03/01/17 11:45 (Heparin Inj) UNSCH PRN .XX 03/01/17 11:45 03/01/17 17:33 (Gentamicin (Dialysis) Inj) 20 mg UNSCH PRN IV 03/01/17 11:45 03/01/17 17:34 (Zofran Inj) 4 mg UNSCH PRN IV 03/01/17 11:45 (Tylenol) 650 mg UNSCH PRN PO 03/01/17 11:45 (Benadryl) 25 mg UNSCH PRN PO 03/01/17 11:45 (Nitrostat Sl) 0.4 mg UNSCH PRN SL 03/01/17 11:45 (Catapres) 0.1 mg UNSCH PRN PO 03/01/17 11:45 Gelatin 1 foam 1 foam UNSCH PRN TOP 03/01/17 11:45 (fentaNYL DRIP) 250 ml @ 0 mls/hr TITRATE IV 03/01/17 18:00 Assessment and Plan Problem List: (1) Respiratory failure, acute Status: Acute Plan: Intubated and on sedation. Undercover Agent managing plan to extubate today. (2) Gangrene Status: Acute Plan: Patient with florid wet gangrene of the right foot BKA on the 12th above the knee amputation on the 14th Dressing on (3) Sepsis Status: Acute Plan: ID consulted and managing. On antibiotics. WBC down to 15.4 -wound C/S Proteus, Enterococcus and PSAE. Blood cx 02/22 Proteus and enterococcus -Antibiotics per ID (vancomycin and Zosyn and Levaquin. Diflucan added by ID 02/12 `7 -Follow-up cultures (4) Acute on chronic kidney disease, stage 4 Status: Acute Plan: Nephrology consulted and managing. Patient with low urine ouput Vas cath and dialysis yesterday. (5) Hypertension Status: Acute Plan: Continue current regimen. B/P 119/72 (6) Tobacco abuse Status: Acute Plan: smoking cessation needed (7) Diabetes Status: Acute Plan: BS monitored adjust treatment as needed (8) Atrial fibrillation Status: Acute Plan: Cardiology consulted. Rate controlled (9) Elevated INR Status: Acute Plan: Hematology consulted and managing. Vitamin k daily. INR 2.3 today. (10) Anemia Status: Acute Plan: HGB 8.1. Monitoring (11) Swelling of right upper extremity Status: Acute Plan: Most likely dependent edema. Will order US Assessment and Plan Assessment and plan discussed with Dr. Bird Discussed Condition With Nursing Problem Qualifiers (1) Sepsis: Qualified Code: A41.9 - Sepsis, due to unspecified organism Cherie Loyd Mar 02, 2017 08:29
[2017-03-02] MEDS: RESP: ALBUTEROL 2.5 MG/IPRATROPIUM 0.5 MG NEB (SCH) NEB ×4 (08:48→20:17)
--- NOTE | 2017-03-02 10:17 | HHI.IDPN ---
Subjective Subjective Remarks Notes reviewed D/W RN Extubated this morning On nasal O2 Doing well Not SOB Had HD yesterday BP ok, not on pressors Temps ok Had R AKA last Sunday 02/25 WBC down to 15.4 Nothing new on C/S Antibiotics Zosyn Levaquin Diflucan Vancomycin Lines R neck central line LIJ matthewcat Past Medical History AFIB Hyperlipidemia Diabetes GERD Hypertension Renal Failure Thyroid Disease Past Surgical History Previous tracheostomy AV fistula in the right upper extremity Allergies: Coded Allergies: No Known Allergies (Unverified , 01/11/17) Objective . Vital Signs Date Time Temp Pulse Resp B/P Pulse Ox O2 Delivery O2 Flow Rate FiO2 03/02/17 08:55 98 Nasal Cannula 3 03/02/17 08:49 99 Nasal Cannula 3.00 03/02/17 06:00 83 03/02/17 04:00 40 03/02/17 04:00 97.8 90 24 119/72 100 03/02/17 04:00 90 03/02/17 03:50 100 30 03/02/17 02:00 83 03/02/17 01:45 98 30 03/02/17 00:00 40 03/02/17 00:00 82 03/02/17 00:00 97.7 82 20 105/63 100 03/01/17 22:00 92 03/01/17 20:34 100 30 03/01/17 20:00 97.9 93 11 146/69 97 03/01/17 20:00 40 03/01/17 20:00 93 03/01/17 19:00 Mechanical Ventilator 30 03/01/17 18:00 83 03/01/17 16:33 30 03/01/17 16:32 94 30 03/01/17 16:00 88 03/01/17 16:00 97.2 88 18 115/62 100 03/01/17 16:00 40 03/01/17 14:00 74 03/01/17 12:12 100 40 03/01/17 12:00 69 03/01/17 12:00 98.0 69 18 127/70 100 03/01/17 12:00 40 03/01/17 03/01/17 03/02/17 15:00 23:00 07:00 Intake Total 392 ml 185 ml 280 ml Output Total 100 ml 2050 ml 50 ml Balance 292 ml -1865 ml 230 ml IV Total 115 ml 140 ml 220 ml FFP 217 ml Tube Irrigant 60 ml 45 ml 60 ml Output Urine Total 100 ml 50 ml 50 ml Hemodialysis 2000 ml # Bowel Movements 2 . Laboratory Tests Test 02/28/17 03/01/17 03/02/17 22:40 04:40 04:45 White Blood Count 23.8 TH/MM3 18.2 TH/MM3 15.4 TH/MM3 Red Blood Count 3.26 MIL/MM3 2.83 MIL/MM3 2.80 MIL/MM3 Hemoglobin 9.4 GM/DL 8.2 GM/DL 8.1 GM/DL Hematocrit 28.9 % 24.9 % 24.5 % Mean Corpuscular Volume 88.4 FL 88.0 FL 87.6 FL Mean Corpuscular Hemoglobin 28.7 PG 29.0 PG 28.9 PG Mean Corpuscular Hemoglobin 32.4 % 33.0 % 33.0 % Concent Red Cell Distribution Width 16.1 % 15.6 % 15.5 % Platelet Count 262 TH/MM3 221 TH/MM3 244 TH/MM3 Mean Platelet Volume 8.6 FL 8.9 FL 9.2 FL Neutrophils (%) (Auto) 94.2 % 92.7 % 89.9 % Lymphocytes (%) (Auto) 0.6 % 2.7 % 3.1 % Monocytes (%) (Auto) 4.3 % 3.7 % 5.7 % Eosinophils (%) (Auto) 0.6 % 0.5 % 1.2 % Basophils (%) (Auto) 0.3 % 0.4 % 0.1 % Neutrophils # (Auto) 22.4 TH/MM3 16.9 TH/MM3 13.8 TH/MM3 Lymphocytes # (Auto) 0.1 TH/MM3 0.5 TH/MM3 0.5 TH/MM3 Monocytes # (Auto) 1.0 TH/MM3 0.7 TH/MM3 0.9 TH/MM3 Eosinophils # (Auto) 0.1 TH/MM3 0.1 TH/MM3 0.2 TH/MM3 Basophils # (Auto) 0.1 TH/MM3 0.1 TH/MM3 0.0 TH/MM3 CBC Comment AUTO DIFF DIFF FINAL DIFF FINAL Differential Comment AUTO DIFF CONFIRMED Laboratory Tests Test 02/28/17 03/01/17 03/02/17 22:40 04:40 04:45 Sodium Level 139 MEQ/L 138 MEQ/L 140 MEQ/L Potassium Level 4.7 MEQ/L 4.0 MEQ/L 3.7 MEQ/L Chloride Level 101 MEQ/L 103 MEQ/L 101 MEQ/L Carbon Dioxide Level 28.1 MEQ/L 24.0 MEQ/L 25.3 MEQ/L Anion Gap 10 MEQ/L 11 MEQ/L 14 MEQ/L Blood Urea Nitrogen 58 MG/DL 56 MG/DL 42 MG/DL Creatinine 5.38 MG/DL 5.42 MG/DL 4.60 MG/DL Estimat Glomerular Filtration 11 ML/MIN 11 ML/MIN 13 ML/MIN Rate Random Glucose 181 MG/DL 126 MG/DL 88 MG/DL Calcium Level 8.3 MG/DL 8.2 MG/DL 8.1 MG/DL Magnesium Level 1.7 MG/DL Total Bilirubin 0.7 MG/DL Aspartate Amino Transf 27 U/L (AST/SGOT) Alanine Aminotransferase 10 U/L (ALT/SGPT) Alkaline Phosphatase 102 U/L Total Protein 5.7 GM/DL Albumin 1.6 GM/DL Microbiology Date/Time Procedure Status Source Growth 02/28/17 17:10 Aerobic Blood Culture - Preliminary Resulted Blood Peripheral NO GROWTH IN 1 DAY 02/28/17 17:10 Anaerobic Blood Culture - Preliminary Resulted Blood Peripheral NO GROWTH IN 1 DAY 02/28/17 17:15 Aerobic Blood Culture - Preliminary Resulted Blood Peripheral NO GROWTH IN 1 DAY 02/28/17 17:15 Anaerobic Blood Culture - Preliminary Resulted Blood Peripheral NO GROWTH IN 1 DAY Imaging Chest X-Ray 03/02/17 0600 Signed Impressions: Service Date/Time: Thursday, March 02, 2017 05:26 - CONCLUSION: Dense consolidation left lower lobe. Tubes and catheters are in good position. Gabriel Beavers MD Foot X-Ray 02/22/17 0000 Signed Impressions: Service Date/Time: Wednesday, February 22, 2017 17:46 - CONCLUSION: Soft tissues extensive soft tissue emphysema, mottled in appearance very concerning for infection with gas-forming organism. No obvious osseous destruction is seen to suggest osteomyelitis. Abhi Seo MD Physical Exam GENERAL: awake and alert SKIN: Cool and dry. Has a lot of purpuric lesions in UE. No generalized rash HEENT: [place] conjunctivae. No scleral icterus. No injection or drainage. Moist mucosa NECK: Supple, nontender, no meningeal signs. Lines ok CARDIOVASCULAR: Regular rate and rhythm without murmurs, gallops, or rubs. RESPIRATORY: Decreased BS bases GASTROINTESTINAL: Abdomen soft, non-tender, nondistended. No hepato-splenomegaly , or palpable masses. No guarding. MUSCULOSKELETAL: LLE without clubbing, cyanosis, or edema. No joint tenderness, effusion. S/P R AKA with dry dressing. NEUROLOGICAL: Awake and alert PSYCH: Calm and cooperative LINE: Lines with no evidence of infection Assessment & Plan Remarks IMPRESSION Lethargy, persistent leukocytosis, low BP - better - nothing new on C/S - leukocytosis better Sepsis with proteus and Enterococcus due to wet gangrene R foot - repeat BC negative Respiratory failure, extubated this morning DFI, PVD with wet gangrene - S/P R AKA (2 staged) - foot C/S Proteus, Enterococcus and PSAE Renal failure RECOMMENDATION Follow C/S Continue Zosyn and Levaquin Stop Diflucan Will not give any further Vancomycin Monitor progress D/W Connie Junior MD Mar 02, 2017 10:17
[2017-03-02] MEDS: ACETAMINOPHEN/HYDROcodone 325 MG/10 MG TAB PO PRN (12:05)
[2017-03-02] MEDS: GENTAMICIN SULFATE (DIALYSIS USE ONLY) 20 MG/2 ML VIAL IV PRN (14:44)
--- NOTE | 2017-03-02 15:15 | PD.CAR.PN ---
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 Thanks J 02/23/17 Appreciate 's evaluation and second opinion. Completely agree. Will take patient to OR for staged surgeries. BKA today, followed by AKA Tuesday or Tuesday. PT/INR consistent with coagulopathy and sepsis superimposed on Coumadintherapy Receiving FFP now Will give K centra if needed after FFP transfused. PT/INR at noon 02/24/17 Patient post staged R leg BK amputation for gangrene uf the foot and sepsis. Patient improved greatly since yesterday. For second stage surgery (R AKA) tomorrow. Agree with transfusion and will check PT/INR in am 02/26/2017 Status post right staged amputation and BKA followed by AKShanae Dressing intact Patient resting comfortably We will leave original dressing on until Tuesday and then change it Patient has some phantom pain today and may need some Neurontin or equivalent 02/28/17 R AKA stump dry, incision clean Change dressing daily Stiches will remain in place for 3 weeks total Patient can be transferred to rehab/SNF from my point any time 03/01/17 Patient end up in the ICU throughout the night due to congestive failure and respiratory insufficiency but this is not improved Right AKA stump is clean and dry and healing nicely Nothing to add to care from surgical vascular point 03/02/17 Right AKA stump is clean and dry well-perfused Nothing to add to care Stitches will stay in about total of 3 weeks Objective: Vital Signs Date Time Temp Pulse Resp B/P Pulse Ox O2 Delivery O2 Flow Rate FiO2 03/02/17 08:55 98 Nasal Cannula 3 03/02/17 08:49 99 Nasal Cannula 3.00 03/02/17 06:00 83 03/02/17 04:00 40 03/02/17 04:00 97.8 90 24 119/72 100 03/02/17 04:00 90 03/02/17 03:50 100 30 03/02/17 02:00 83 03/02/17 01:45 98 30 03/02/17 00:00 40 03/02/17 00:00 82 03/02/17 00:00 97.7 82 20 105/63 100 03/01/17 22:00 92 03/01/17 20:34 100 30 03/01/17 20:00 97.9 93 11 146/69 97 03/01/17 20:00 40 03/01/17 20:00 93 03/01/17 19:00 Mechanical Ventilator 30 03/01/17 18:00 83 03/01/17 16:33 30 03/01/17 16:32 94 30 03/01/17 16:00 88 03/01/17 16:00 97.2 88 18 115/62 100 03/01/17 16:00 40 Labs: Laboratory Tests Test 03/02/17 03/02/17 04:45 05:00 White Blood Count 15.4 TH/MM3 (4.0-11.0) Red Blood Count 2.80 MIL/MM3 (4.50-5.90) Hemoglobin 8.1 GM/DL (13.0-17.0) Hematocrit 24.5 % (39.0-51.0) Mean Corpuscular Volume 87.6 FL (80.0-100.0) Mean Corpuscular Hemoglobin 28.9 PG (27.0-34.0) Mean Corpuscular Hemoglobin 33.0 % Concent (32.0-36.0) Red Cell Distribution Width 15.5 % (11.6-17.2) Platelet Count 244 TH/MM3 (150-450) Mean Platelet Volume 9.2 FL (7.0-11.0) Neutrophils (%) (Auto) 89.9 % (16.0-70.0) Lymphocytes (%) (Auto) 3.1 % (9.0-44.0) Monocytes (%) (Auto) 5.7 % (0.0-8.0) Eosinophils (%) (Auto) 1.2 % (0.0-4.0) Basophils (%) (Auto) 0.1 % (0.0-2.0) Neutrophils # (Auto) 13.8 TH/MM3 (1.8-7.7) Lymphocytes # (Auto) 0.5 TH/MM3 (1.0-4.8) Monocytes # (Auto) 0.9 TH/MM3 (0-0.9) Eosinophils # (Auto) 0.2 TH/MM3 (0-0.4) Basophils # (Auto) 0.0 TH/MM3 (0-0.2) CBC Comment DIFF FINAL Differential Comment Sodium Level 140 MEQ/L (136-145) Potassium Level 3.7 MEQ/L (3.5-5.1) Chloride Level 101 MEQ/L (98-107) Carbon Dioxide Level 25.3 MEQ/L (21.0-32.0) Anion Gap 14 MEQ/L (5-15) Blood Urea Nitrogen 42 MG/DL (7-18) Creatinine 4.60 MG/DL (0.60-1.30) Estimat Glomerular Filtration 13 ML/MIN (>89) Rate Random Glucose 88 MG/DL (74-106) Calcium Level 8.1 MG/DL (8.5-10.1) Magnesium Level 1.7 MG/DL (1.5-2.5) Total Bilirubin 0.7 MG/DL (0.2-1.0) Aspartate Amino Transf 27 U/L (15-37) (AST/SGOT) Alanine Aminotransferase 10 U/L (12-78) (ALT/SGPT) Alkaline Phosphatase 102 U/L (45-117) Total Protein 5.7 GM/DL (6.4-8.2) Albumin 1.6 GM/DL (3.4-5.0) Prothrombin Time 26.3 SEC (9.8-11.6) Prothromb Time International 2.3 RATIO Ratio Result Diagram: 03/02/1744403/02/17444 (1) PVD (peripheral vascular disease) (2) Unilateral AKA (3) Atrial fibrillation (4) Coagulopathy (5) Acute renal failure superimposed on stage 4 chronic kidney disease (6) Diabetes (7) Hypertension Problem Qualifiers (1) Unilateral AKA: Qualified Code: Z89.611 - Unilateral AKA, right Jeovany Ernst MD Mar 02, 2017 15:15
--- NOTE | 2017-03-02 16:50 | HHI.NPPN ---
Subjective History of Present Illness This patient is a 71-year-old male with a history of long-standing diabetes mellitus and hypertension as well as chronic kidney disease known to me from the office, approaching end-stage renal disease. 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 Patient did have an AV dialysis shunt placed in preparation for dialysis unfortunately access failed. Is on sodium bicarbonate chronically for metabolic acidosis. There has been concern regarding nutritional status recently. Interval History Patient much more alert and responding to questions. Review of Systems General General Remarks Unable to obtain Objective Data Data 03/01/17 03/02/17 19:00 07:00 Intake Total 392 ml 465 ml Output Total 2100 ml 100 ml Balance -1708 ml 365 ml IV Total 115 ml 360 ml FFP 217 ml Tube Irrigant 60 ml 105 ml Output Urine Total 100 ml 100 ml Hemodialysis 2000 ml # Bowel Movements 2 Vital Signs Date Time Temp Pulse Resp B/P Pulse Ox O2 Delivery O2 Flow Rate FiO2 03/02/17 08:55 98 Nasal Cannula 3 03/02/17 08:49 99 Nasal Cannula 3.00 03/02/17 06:00 83 03/02/17 04:00 40 03/02/17 04:00 97.8 90 24 119/72 100 03/02/17 04:00 90 03/02/17 03:50 100 30 03/02/17 02:00 83 03/02/17 01:45 98 30 03/02/17 00:00 40 03/02/17 00:00 82 03/02/17 00:00 97.7 82 20 105/63 100 03/01/17 22:00 92 03/01/17 20:34 100 30 03/01/17 20:00 97.9 93 11 146/69 97 03/01/17 20:00 40 03/01/17 20:00 93 03/01/17 19:00 Mechanical Ventilator 30 03/01/17 18:00 83 -: 03/02/17 0445 03/02/17 0445 Tubes & Lines: Vas-Cath ([facility]) Physical Exam General Appearance: No Acute Distress Eyes Eye Exam: Sclera White Pulmonary Resp Exam: Clear Bilaterally, Breath Sounds Equal, No Distress Cardiology CV Exam: Regular, Normal Sinus Rhythm Gastrointestinal/Abdomen GI Exam: Soft, Non-Tender Integumentary Skin Exam: Clear, Warm Extremeties Extremities Exam: Moderate Edema (right upper extremity. None in LLE), Pitting Edema Assessment/Plan Discussed Condition With: Patient, Spouse Problem List: (1) CKD (chronic kidney disease) stage 4, GFR 15-29 ml/min Plan: Patient seen postdialysis. Tolerating same. More alert. Hopefully appetite will improve also. Continue on Tuesday schedule. The patient will need a PermCath for discharge once his INR has improved. Discussed with patient. Medications should be adjusted for the patient's ESRD. Avoid gadolinium (2) Metabolic acidosis Plan: Improve with dialysis. (3) Dialysis AV fistula malfunction Plan: Awaiting consult from Dr. Leonard (4) Vitamin D deficiency Plan: Vitamin D as ordered. (5) Malnutrition Plan: Agree with nutritional supplementation and patient was encouraged to improve his dietary protein intake. (6) Diabetes Plan: Management per primary care physician. (7) Hypertension Jeremiah Hagan MD Mar 02, 2017 16:50
--- NOTE | 2017-03-02 19:25 | HHI.PR ---
Subjective Remarks YOWM with COPD, Hypercapnoic RF, s/p Right AKA Extubated, On NC Gets intermittentally confused Opens eyes No Fever C. diff positive Objective Vital Signs Vital Signs Date Time Temp Pulse Resp B/P Pulse Ox O2 Delivery O2 Flow Rate FiO2 03/02/17 16:00 97.9 93 18 119/67 100 03/02/17 12:00 98.0 79 17 120/59 99 03/02/17 11:30 96 Nasal Cannula 2.00 03/02/17 08:55 100 Nasal Cannula 3.00 03/02/17 08:55 98 Nasal Cannula 3 03/02/17 08:49 99 Nasal Cannula 3.00 03/02/17 08:00 30 03/02/17 08:00 99 Mechanical Ventilator 30 03/02/17 08:00 99.7 97 14 144/78 99 Manual Cuff/Doppler 03/02/17 06:00 83 03/02/17 04:00 40 03/02/17 04:00 97.8 90 24 119/72 100 03/02/17 04:00 90 03/02/17 03:50 100 30 03/02/17 02:00 83 03/02/17 01:45 98 30 03/02/17 00:00 40 03/02/17 00:00 82 03/02/17 00:00 97.7 82 20 105/63 100 03/01/17 22:00 92 03/01/17 20:34 100 30 03/01/17 20:00 97.9 93 11 146/69 97 03/01/17 20:00 40 03/01/17 20:00 93 I/O 03/01/17 03/01/17 03/01/17 03/02/17 03/02/17 03/02/17 07:00 15:00 23:00 07:00 15:00 23:00 Intake Total 987 ml 392 ml 185 ml 280 ml 372 ml 200 ml Output Total 75 ml 100 ml 2050 ml 50 ml 60 ml Balance 912 ml 292 ml -1865 ml 230 ml 312 ml 200 ml Intake Oral 240 ml 200 ml IV Total 987 ml 115 ml 140 ml 220 ml 82 ml FFP 217 ml Tube Irrigant 60 ml 45 ml 60 ml Other 50 ml Output Urine Total 75 ml 100 ml 50 ml 50 ml 60 ml Hemodialysis 2000 ml # Bowel Movements 0 2 1 1 Result Diagram: 03/02/1744403/02/17444 Objective Remarks GENERAL: MBMN WM, on Vent SKIN: Warm and dry. HEAD: Normocephalic. EYES: No scleral icterus. No injection or drainage. NECK: Supple, trachea midline. No JVD or lymphadenopathy. CARDIOVASCULAR: Regular rate and rhythm without murmurs, gallops, or rubs. RESPIRATORY: Breath sounds equal bilaterally. No accessory muscle use. GASTROINTESTINAL: Abdomen soft, non-tender, nondistended. MUSCULOSKELETAL: No cyanosis, or edema. Right AKA BACK: Nontender without obvious deformity. No CVA tenderness. A/P Assessment and Plan VDRF Hypercapnoic RF COPD AF DM S/P Right AKA PLAN: Aerosol nebs Cont Abx Monitor Ronny Kan MD Mar 02, 2017 19:25
--- NOTE | 2017-03-02 19:39 | PD.CARD.PN ---
Subjective Subjective Remarks No CP or SOB, extubated Objective Medications Current Medications Medications (Trade) Dose Ordered Sig/[place] Route Start Time Stop Time Status Last Admin (NS Flush) 2 ml UNSCH PRN IV FLUSH 02/22/17 18:15 (NS Flush) 2 ml BID IV FLUSH 02/22/17 21:00 03/02/17 08:00 (Zofran Inj) 4 mg Q6H PRN IVP 02/22/17 18:15 (Narcan Inj) 0.4 mg UNSCH PRN IV 02/22/17 18:15 ([place] 10-325 Mg) 1 tab Q4H PRN PO 02/22/17 18:15 03/02/17 12:05 (Tenormin) 100 mg BID PO 02/22/17 21:00 03/02/17 08:01 (Lipitor) 40 mg HS PO 02/22/17 21:00 03/01/17 21:42 (Catapres) 0.1 mg BID PO 02/22/17 21:00 03/02/17 08:00 (Cardizem Cd) 240 mg DAILY PO 02/23/17 09:00 02/28/17 08:33 (Protonix) 40 mg DAILY PO 02/23/17 09:00 02/28/17 08:33 (Synthroid) 100 mcg DAILY@06 PO 02/23/17 06:00 03/02/17 06:14 (Synthroid) 75 mcg DAILY@06 PO 02/23/17 06:00 03/02/17 06:14 (Heparin Inj) 5,000 units Q12HR SQ 02/24/17 09:00 Hold 02/26/17 08:08 (D50w (Vial) Inj) 25 ml UNSCH PRN IV PUSH 02/24/17 11:45 (Glucagon Inj) 1 mg UNSCH PRN OTHER 02/24/17 11:45 (Vitamin D3) 5,000 units DAILY PO 02/25/17 09:00 03/02/17 08:01 (Imodium) 2 mg Q6H PRN PO 02/24/17 20:30 02/24/17 20:54 (Lasix) 40 mg DAILY PO 02/25/17 09:00 03/02/17 08:00 (Lotrisone Cream) 1 applic Q12HR TOPICAL 02/27/17 09:00 03/01/17 21:00 (Mephyton) 2.5 mg DAILY PO 03/01/17 09:00 03/02/17 08:01 (Neurontin) 100 mg TID PO 02/28/17 13:00 03/02/17 16:39 Miscellaneous 1 ea 1 ea UNSCH PRN OTHER 02/28/17 12:00 Levofloxacin/ Dextrose 50 ml @ 100 mls/hr Q48H IV 03/01/17 18:00 03/01/17 17:59 (Zosyn 2.25 Gm Premix) 50 ml @ 100 mls/hr Q8H IV 02/28/17 23:00 03/02/17 15:45 (Januvia) 25 mg DAILY PO 03/01/17 09:00 03/02/17 08:00 (NS Flush) UNSCH PRN IVF 03/01/17 10:15 Heparin Sodium (Porcine) UNSCH PRN IV FLUSH 03/01/17 10:15 (NS 1000 ml Inj) 1,000 ml @ 0 mls/hr Q0M PRN IV 03/01/17 11:39 Heparin Sodium (Porcine) 8000 units 8,000 units UNSCH PRN IVF 03/01/17 11:45 03/02/17 14:44 Sodium Chloride 1,000 ml @ 200 mls/hr Q5H PRN IV 03/01/17 11:39 (NS 1000 ml Inj) 1,000 ml @ 0 mls/hr Q0M PRN IV 03/01/17 11:39 (Mannitol Inj) 12.5 gm UNSCH PRN IV 03/01/17 11:45 (Albumin 25% Inj) 25 gm UNSCH PRN IV 03/01/17 11:45 (NS Flush) 5 ml UNSCH PRN IV FLUSH 03/01/17 11:45 (Heparin Inj) UNSCH PRN .XX 03/01/17 11:45 03/01/17 17:33 (Gentamicin (Dialysis) Inj) 20 mg UNSCH PRN IV 03/01/17 11:45 03/02/17 14:44 (Zofran Inj) 4 mg UNSCH PRN IV 03/01/17 11:45 (Tylenol) 650 mg UNSCH PRN PO 03/01/17 11:45 (Benadryl) 25 mg UNSCH PRN PO 03/01/17 11:45 (Nitrostat Sl) 0.4 mg UNSCH PRN SL 03/01/17 11:45 (Catapres) 0.1 mg UNSCH PRN PO 03/01/17 11:45 Gelatin 1 foam 1 foam UNSCH PRN TOP 03/01/17 11:45 (fentaNYL DRIP) 250 ml @ 0 mls/hr TITRATE IV 03/01/17 18:00 (Nephrocaps) 1 cap DAILY PO 03/03/17 09:00 Vital Signs / I&O Vital Signs Date Time Temp Pulse Resp B/P Pulse Ox O2 Delivery O2 Flow Rate FiO2 03/02/17 16:00 97.9 93 18 119/67 100 03/02/17 12:00 98.0 79 17 120/59 99 03/02/17 11:30 96 Nasal Cannula 2.00 03/02/17 08:55 100 Nasal Cannula 3.00 03/02/17 08:55 98 Nasal Cannula 3 03/02/17 08:49 99 Nasal Cannula 3.00 03/02/17 08:00 30 03/02/17 08:00 99 Mechanical Ventilator 30 03/02/17 08:00 99.7 97 14 144/78 99 Manual Cuff/Doppler 03/02/17 06:00 83 03/02/17 04:00 40 03/02/17 04:00 97.8 90 24 119/72 100 03/02/17 04:00 90 03/02/17 03:50 100 30 03/02/17 02:00 83 03/02/17 01:45 98 30 03/02/17 00:00 40 03/02/17 00:00 82 03/02/17 00:00 97.7 82 20 105/63 100 03/01/17 22:00 92 03/01/17 20:34 100 30 03/01/17 20:00 97.9 93 11 146/69 97 03/01/17 20:00 40 03/01/17 20:00 93 I/O 03/01/17 03/01/17 03/01/17 03/02/17 03/02/17 03/02/17 07:00 15:00 23:00 07:00 15:00 23:00 Intake Total 987 ml 392 ml 185 ml 280 ml 372 ml 200 ml Output Total 75 ml 100 ml 2050 ml 50 ml 60 ml Balance 912 ml 292 ml -1865 ml 230 ml 312 ml 200 ml Intake Oral 240 ml 200 ml IV Total 987 ml 115 ml 140 ml 220 ml 82 ml FFP 217 ml Tube Irrigant 60 ml 45 ml 60 ml Other 50 ml Output Urine Total 75 ml 100 ml 50 ml 50 ml 60 ml Hemodialysis 2000 ml # Bowel Movements 0 2 1 1 Physical Exam GENERAL: In NAD SKIN: Warm and dry. HEAD: Normocephalic. EYES: No scleral icterus. No injection or drainage. NECK: Supple, trachea midline. No JVD or lymphadenopathy. CARDIOVASCULAR: Irreg rhythm without murmurs, gallops, or rubs. RESPIRATORY: Breath sounds equal bilaterally. No accessory muscle use. GASTROINTESTINAL: Abdomen soft, non-tender, nondistended. MUSCULOSKELETAL: No cyanosis, or edema, s/p R AKA Laboratory Laboratory Tests Test 03/02/17 03/02/17 04:45 05:00 White Blood Count 15.4 TH/MM3 Red Blood Count 2.80 MIL/MM3 Hemoglobin 8.1 GM/DL Hematocrit 24.5 % Mean Corpuscular Volume 87.6 FL Mean Corpuscular Hemoglobin 28.9 PG Mean Corpuscular Hemoglobin 33.0 % Concent Red Cell Distribution Width 15.5 % Platelet Count 244 TH/MM3 Mean Platelet Volume 9.2 FL Neutrophils (%) (Auto) 89.9 % Lymphocytes (%) (Auto) 3.1 % Monocytes (%) (Auto) 5.7 % Eosinophils (%) (Auto) 1.2 % Basophils (%) (Auto) 0.1 % Neutrophils # (Auto) 13.8 TH/MM3 Lymphocytes # (Auto) 0.5 TH/MM3 Monocytes # (Auto) 0.9 TH/MM3 Eosinophils # (Auto) 0.2 TH/MM3 Basophils # (Auto) 0.0 TH/MM3 CBC Comment DIFF FINAL Differential Comment Sodium Level 140 MEQ/L Potassium Level 3.7 MEQ/L Chloride Level 101 MEQ/L Carbon Dioxide Level 25.3 MEQ/L Anion Gap 14 MEQ/L Blood Urea Nitrogen 42 MG/DL Creatinine 4.60 MG/DL Estimat Glomerular Filtration 13 ML/MIN Rate Random Glucose 88 MG/DL Calcium Level 8.1 MG/DL Magnesium Level 1.7 MG/DL Total Bilirubin 0.7 MG/DL Aspartate Amino Transf 27 U/L (AST/SGOT) Alanine Aminotransferase 10 U/L (ALT/SGPT) Alkaline Phosphatase 102 U/L Total Protein 5.7 GM/DL Albumin 1.6 GM/DL Prothrombin Time 26.3 SEC Prothromb Time International 2.3 RATIO Ratio Imaging Last Impressions Chest X-Ray 03/02/17 0600 Signed Impressions: Service Date/Time: Thursday, March 02, 2017 05:26 - CONCLUSION: Dense consolidation left lower lobe. Tubes and catheters are in good position. Gabriel Beavers MD Foot X-Ray 02/22/17 0000 Signed Impressions: Service Date/Time: Wednesday, February 22, 2017 17:46 - CONCLUSION: Soft tissues extensive soft tissue emphysema, mottled in appearance very concerning for infection with gas-forming organism. No obvious osseous destruction is seen to suggest osteomyelitis. Abhi Seo MD Assessment and Plan Problem List: (1) PVD (peripheral vascular disease) (2) Unilateral AKA (3) Atrial fibrillation (4) Coagulopathy (5) Acute renal failure superimposed on stage 4 chronic kidney disease (6) Diabetes (7) Hypertension Assessment and Plan Extubated and relatively stable. A fib rate controlled. Continue ICU care. Cont pulm tx, abxs. Increase activity as tolerated. Problem Qualifiers (1) Unilateral AKA: Qualified Code: Z89.611 - Unilateral AKA, right (2) Diabetes: David Greenberg MD Mar 02, 2017 19:39
[2017-03-02] MEDS: ATORVASTATIN 40 MG TAB PO SCH (20:30)
--- NOTE | 2017-03-02 23:35 | RADRPT ---
EXAM DATE/TIME: 03/02/2017 21:15 [facility] COMPARISON: No previous studies available for comparison. INDICATIONS : Right arm edema. MEDICAL HISTORY : Hypertension. Gastroesophageal reflux disease. Thyroid disease. Afib. Stage V renal failure. Diabete s. SURGICAL HISTORY : Tracheotomy. Blood transfusions. ENCOUNTER: Initial ACUITY: 1 day PAIN SCORE: Non-responsive LOCATION: Right arm. FINDINGS: There is spontaneous flow documented in the brachial, basilic, axillary, and subclavian veins. There is some superficial thrombus from the distal cephalic to the antecubital fossa. The vessels are compr essible and augmentation response is documented. No filling defects are seen. The flow is phasic wi th respiration. Direction of flow in the jugular vein is caudal. CONCLUSION: Superficial nonocclusive thrombus in the distal cephalic vein to the antecubital fossa. Gabriel Beavers MD on March 02, 2017 at 23:32 Board Certified Radiologist. This report was verified electronically.
[2017-03-03] VITALS (14 sets, daily range): BP systolic 100–139; BP diastolic 59–74; PULSE 70–88; RESP 10–20; TEMP 97.6–98.7; O2SAT 96–100
[2017-03-03] MEDS: PIPERACIL-TAZO 2.25 GM PREMIX 50 ML IV SCH ×2 (00:15→06:58)
[2017-03-03 03:36] LABS: C. DIFF EPI 027 PRESUMPTIVE NEGATIVE (NEGATIVE); C. DIFF TOXIN PCR NEGATIVE (NEGATIVE)
[2017-03-03 06:00] LABS: AUTOMATED NEUTROPHIL # 11.6 TH/MM3 (1.8-7.7); BASOPHIL # 0.1 TH/MM3 (0-0.2); EOSINOPHIL # 0.2 TH/MM3 (0-0.4); EOSINOPHIL % 1.8 % (0.0-4.0); HEMATOCRIT 24.6 % (39.0-51.0); LYMPH % 3.3 % (9.0-44.0); LYMPHOCYTE # 0.5 TH/MM3 (1.0-4.8); MEAN CELL VOLUME 88.4 FL (80.0-100.0); MEAN CORPUSCULAR HEMOGLOBIN 29.1 PG (27.0-34.0); MEAN CORPUSCULAR HGB CONC 32.9 % (32.0-36.0); NEUT % 85.9 % (16.0-70.0); PLATELET COUNT 244 TH/MM3 (150-450); RED BLOOD COUNT 2.78 MIL/MM3 (4.50-5.90); RED CELL DISTRIBUTION WIDTH 15.2 % (11.6-17.2); WHITE BLOOD COUNT 13.5 TH/MM3 (4.0-11.0)
[2017-03-03] MEDS: LEVOTHYROXINE SODIUM 75 MCG TAB PO SCH (06:00)
[2017-03-03] MEDS: LEVOTHYROXINE SODIUM 100 MCG TAB PO SCH (06:00)
[2017-03-03 06:15] LABS: ALKALINE PHOSPHATASE 109 U/L (45-117); ALT (GPT) 11 U/L (12-78); ANION GAP 9 MEQ/L (5-15); AST (GOT) 26 U/L (15-37); BICARBONATE 30.8 MEQ/L (21.0-32.0); BLOOD UREA NITROGEN 30 MG/DL (7-18); CHLORIDE 99 MEQ/L (98-107); GLOMERULAR FILTRATION RATE 15 ML/MIN (>89); HEMO FLAGS AUTO DIFF; POTASSIUM 3.5 MEQ/L (3.5-5.1); SODIUM (NA) 139 MEQ/L (136-145); TOTAL BILIRUBIN ADULT 0.6 MG/DL (0.2-1.0)
[2017-03-03] MEDS: INSULIN NovoLIN REGULAR SUPPLEMENTAL SCALE SQ SCH ×4 (06:58→21:00)
[2017-03-03 07:07] LABS: PLATELET ESTIMATE SMEAR NORMAL (NORMAL); PLATELET MORPHOLOGY NORMAL (NORMAL); SCAN/DIFF AUTO DIFF CONFIRMED
--- NOTE | 2017-03-03 07:27 | HHI.CCPN ---
Subjective Remarks/Hospital Course 71-year-old male with history of atrial fibrillation, and poorly controlled diabetes admitted with complaint of generalized weakness. Patient has had a wound on the right foot for a reported 3-4 years. 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 Patient is nonambulatory at baseline. He was on a regular surgical floor without a rapid response was called for decreased responsiveness and hypercapnic respiratory failure with severe respiratory acidosis. SUBJ 03/01: remains intubated, sedated with low dose Versed and Fentanyl. Wakes up easily follows commands. 03/02: Awake off sedation, following commands. Remains orally intubated on mechanical ventilation. 03/03: Extubated yesterday, on nasal cannula tolerating well. Objective Vital Signs Date Time Temp Pulse Resp B/P Pulse Ox O2 Delivery O2 Flow Rate FiO2 03/03/17 06:00 72 03/03/17 04:00 98.2 10 100/59 100 03/02/17 20:18 Nasal Cannula 2.00 03/02/17 08:00 30 Intake and Output 03/02/17 03/02/17 03/03/17 08:00 16:00 00:00 Intake Total 280 ml 372 ml 391 ml Output Total 50 ml 60 ml 25 ml Balance 230 ml 312 ml 366 ml Result Diagram: 03/03/17 0530 03/03/17 0530 Imaging Last Impressions Chest X-Ray 03/02/17 0600 Signed Impressions: Service Date/Time: Thursday, March 02, 2017 05:26 - CONCLUSION: Dense consolidation left lower lobe. Tubes and catheters are in good position. Gabriel Beavers MD Foot X-Ray 02/22/17 0000 Signed Impressions: Service Date/Time: Wednesday, February 22, 2017 17:46 - CONCLUSION: Soft tissues extensive soft tissue emphysema, mottled in appearance very concerning for infection with gas-forming organism. No obvious osseous destruction is seen to suggest osteomyelitis. Abhi Seo MD Objective Remarks GENERAL: Elderly man, laying in bed not in any acute distress SKIN: Warm and dry. HEAD: Normocephalic. EYES: No scleral icterus. No injection or drainage. NECK: Supple, trachea midline. No JVD or lymphadenopathy. CARDIOVASCULAR: Regular rate and rhythm without murmurs, gallops, or rubs. RESPIRATORY: Breath sounds equal bilaterally. No accessory muscle use. GASTROINTESTINAL: Abdomen soft, non-tender, nondistended. MUSCULOSKELETAL: No cyanosis, or edema. BACK: Nontender without obvious deformity. No CVA tenderness. EXTREMITIES: Status post Right AKA, stump without signs of bleeding, or infection. NEURO: awake and alert, following commands, A/P Assessment and Plan NEURO: Off all sedation, Follow Neuro status. Pain medications as needed. Has not required any pain medications overnight. Consider Percocet when necessary RESP: Respiratory failure, Hypercapnic - Possible narcotic effect -Extubated on 03/02 and tolerating nasal cannula CVS: Atrial fibrillation - Rate controlled - Cardiology follow-up appreciated - Diltiazem - Atenolol Hypertension - Clonidine - Lasix - Atenolol ID Sepsis with proteus and Enterococcus due to wet gangrene R foot -s/p staged amputation, now with R AKA by Dr. Samano -wound C/S Proteus, Enterococcus and PSAE. Blood cx 02/22 Proteus and enterococcus -Antibiotics per ID (vancomycin and Zosyn and Levaquin. Diflucan added by ID 02/12 `7 -Follow-up cultures GI: GERD - PPI RENAL: Renal Failure - Monitor urine output- - Monitor electrolytes - Monitor creatinine - Nephrology planning on PermCath placement eventually. LIJ vascath placed on . Plan for HD per nephrology. ENDO: Diabetes mellitus - Insulin sliding scale Thyroid Disease - Levothyroxine Dyslipidemia - Atorvastatin HEME: Supratherapeutic INR Nonocclusive Cephalic vein thrombosis - Management per hematology who are following patient. DVT GI prophylaxis - Teds SCDs - Monitor INR - PPI Shai Cervantes MD Mar 03, 2017 07:27
[2017-03-03] MEDS: cloNIDine HCL 0.1 MG TAB PO SCH ×3 (08:43→21:00)
[2017-03-03] MEDS: PHYTONADIONE 5 MG TAB PO SCH (08:43)
[2017-03-03] MEDS: DILTIAZEM-CD 240 MG CAP ER PO SCH (08:43)
[2017-03-03] MEDS: CHOLECALCIFEROL (VIT D3) 5000 UNIT CAP PO SCH (08:43)
[2017-03-03] MEDS: PANTOPRAZOLE SOD 40 MG DELAYED RELEASE TAB PO SCH (08:43)
[2017-03-03] MEDS: GABAPENTIN 100 MG CAP PO SCH ×3 (08:43→17:56)
[2017-03-03] MEDS: ATENOLOL 100 MG TAB PO SCH ×2 (08:43→20:48)
[2017-03-03] MEDS: FUROSEMIDE 40 MG TAB PO SCH (08:43)
[2017-03-03] MEDS: RESP: ALBUTEROL 2.5 MG/IPRATROPIUM 0.5 MG NEB (SCH) NEB ×4 (08:56→20:22)
[2017-03-03] MEDS: VITAMIN B CMPLX/VITC/FOLIC AC CAP PO SCH (09:00)
[2017-03-03] MEDS: BETAMETHASONE/CLOTRIMAZOLE CREAM 15 GM TOPICAL SCH ×2 (09:00→21:09)
--- NOTE | 2017-03-03 09:02 | HHI.PR ---
Subjective Remarks Patient extubated on room air. Good sats. Denies any CP or SOB Objective Vital Signs Date Time Temp Pulse Resp B/P Pulse Ox O2 Delivery O2 Flow Rate FiO2 03/03/17 06:00 72 03/03/17 04:00 98.2 84 10 100/59 100 03/03/17 04:00 84 03/03/17 02:00 79 03/03/17 00:00 88 03/03/17 00:00 98.7 75 11 112/64 100 03/02/17 22:00 91 03/02/17 20:18 100 Nasal Cannula 2.00 03/02/17 20:00 76 03/02/17 20:00 98.3 76 16 101/58 100 03/02/17 19:15 98 Nasal Cannula 2.00 03/02/17 18:00 80 03/02/17 16:00 93 03/02/17 16:00 97.9 93 18 119/67 100 03/02/17 14:00 84 03/02/17 12:00 98.0 79 17 120/59 99 03/02/17 12:00 79 03/02/17 11:30 96 Nasal Cannula 2.00 03/02/17 10:00 80 I/O 03/02/17 03/02/17 03/02/17 03/03/17 03/03/17 03/03/17 07:00 15:00 23:00 07:00 15:00 23:00 Intake Total 280 ml 372 ml 391 ml 89 ml Output Total 50 ml 60 ml 25 ml 30 ml Balance 230 ml 312 ml 366 ml 59 ml Intake Oral 240 ml 300 ml IV Total 220 ml 82 ml 91 ml 89 ml Tube Irrigant 60 ml Other 50 ml Output Urine Total 50 ml 60 ml 25 ml 30 ml # Bowel Movements 1 1 2 Result Diagram: 03/03/17 0530 03/03/17 0530 Procedures 02/23 BKA of right leg 02/25 AKA r leg Objective Remarks GENERAL: cooperative SKIN: Warm and dry. Discoloration in lower extremity HEAD: Normocephalic. EYES: No scleral icterus. No injection or drainage. NECK: Supple, trachea midline. No JVD or lymphadenopathy. CARDIOVASCULAR: Regular rate and rhythm without murmurs, gallops, or rubs. RESPIRATORY: Breath sounds equal bilaterally. No accessory muscle use. Intubated GASTROINTESTINAL: Abdomen soft, non-tender, nondistended. MUSCULOSKELETAL: No cyanosis, or edema. Status post right AKA. Dressing on BACK: Nontender without obvious deformity. No CVA tenderness. Medications and IVs Current Medications Medications (Trade) Dose Ordered Sig/[place] Route Start Time Stop Time Status Last Admin (NS Flush) 2 ml UNSCH PRN IV FLUSH 02/22/17 18:15 (NS Flush) 2 ml BID IV FLUSH 02/22/17 21:00 03/02/17 20:30 (Zofran Inj) 4 mg Q6H PRN IVP 02/22/17 18:15 (Narcan Inj) 0.4 mg UNSCH PRN IV 02/22/17 18:15 ([place] 10-325 Mg) 1 tab Q4H PRN PO 02/22/17 18:15 03/02/17 12:05 (Tenormin) 100 mg BID PO 02/22/17 21:00 03/03/17 08:43 (Lipitor) 40 mg HS PO 02/22/17 21:00 03/02/17 20:30 (Catapres) 0.1 mg BID PO 02/22/17 21:00 03/03/17 08:43 (Cardizem Cd) 240 mg DAILY PO 02/23/17 09:00 03/03/17 08:43 (Protonix) 40 mg DAILY PO 02/23/17 09:00 03/03/17 08:43 (Synthroid) 100 mcg DAILY@06 PO 02/23/17 06:00 03/03/17 06:00 (Synthroid) 75 mcg DAILY@06 PO 02/23/17 06:00 03/03/17 06:00 (Heparin Inj) 5,000 units Q12HR SQ 02/24/17 09:00 Hold 02/26/17 08:08 (D50w (Vial) Inj) 25 ml UNSCH PRN IV PUSH 02/24/17 11:45 (Glucagon Inj) 1 mg UNSCH PRN OTHER 02/24/17 11:45 (Vitamin D3) 5,000 units DAILY PO 02/25/17 09:00 03/03/17 08:43 (Imodium) 2 mg Q6H PRN PO 02/24/17 20:30 02/24/17 20:54 (Lasix) 40 mg DAILY PO 02/25/17 09:00 03/03/17 08:43 (Lotrisone Cream) 1 applic Q12HR TOPICAL 02/27/17 09:00 03/02/17 20:30 (Mephyton) 2.5 mg DAILY PO 03/01/17 09:00 03/03/17 08:43 (Neurontin) 100 mg TID PO 02/28/17 13:00 03/03/17 08:43 Miscellaneous 1 ea 1 ea UNSCH PRN OTHER 02/28/17 12:00 Levofloxacin/ Dextrose 50 ml @ 100 mls/hr Q48H IV 03/01/17 18:00 03/01/17 17:59 (Zosyn 2.25 Gm Premix) 50 ml @ 100 mls/hr Q8H IV 02/28/17 23:00 03/03/17 06:58 (Januvia) 25 mg DAILY PO 03/01/17 09:00 03/02/17 08:00 (NS Flush) UNSCH PRN IVF 03/01/17 10:15 Heparin Sodium (Porcine) UNSCH PRN IV FLUSH 03/01/17 10:15 (NS 1000 ml Inj) 1,000 ml @ 0 mls/hr Q0M PRN IV 03/01/17 11:39 Heparin Sodium (Porcine) 8000 units 8,000 units UNSCH PRN IVF 03/01/17 11:45 03/02/17 14:44 Sodium Chloride 1,000 ml @ 200 mls/hr Q5H PRN IV 03/01/17 11:39 (NS 1000 ml Inj) 1,000 ml @ 0 mls/hr Q0M PRN IV 03/01/17 11:39 (Mannitol Inj) 12.5 gm UNSCH PRN IV 03/01/17 11:45 (Albumin 25% Inj) 25 gm UNSCH PRN IV 03/01/17 11:45 (NS Flush) 5 ml UNSCH PRN IV FLUSH 03/01/17 11:45 (Heparin Inj) UNSCH PRN .XX 03/01/17 11:45 03/01/17 17:33 (Gentamicin (Dialysis) Inj) 20 mg UNSCH PRN IV 03/01/17 11:45 03/02/17 14:44 (Zofran Inj) 4 mg UNSCH PRN IV 03/01/17 11:45 (Tylenol) 650 mg UNSCH PRN PO 03/01/17 11:45 (Benadryl) 25 mg UNSCH PRN PO 03/01/17 11:45 (Nitrostat Sl) 0.4 mg UNSCH PRN SL 03/01/17 11:45 (Catapres) 0.1 mg UNSCH PRN PO 03/01/17 11:45 Gelatin 1 foam 1 foam UNSCH PRN TOP 03/01/17 11:45 (fentaNYL DRIP) 250 ml @ 0 mls/hr TITRATE IV 03/01/17 18:00 (Nephrocaps) 1 cap DAILY PO 03/03/17 09:00 Assessment and Plan Problem List: (1) Respiratory failure, acute Status: Acute Plan: Patient extubated and is on Room air now with good sats. Transfer to step down unit (2) Gangrene Status: Acute Plan: Patient with florid wet gangrene of the right foot BKA on the above the knee amputation on the (3) Sepsis Status: Acute Plan: ID consulted and managing. On antibiotics. WBC down to 15.4 -wound C/S Proteus, Enterococcus and PSAE. Blood cx 02/22 Proteus and enterococcus -Antibiotics per ID (vancomycin and Zosyn and Levaquin. Diflucan added by ID 02/12 `7 -Follow-up cultures (4) Acute on chronic kidney disease, stage 4 Status: Acute Plan: Nephrology consulted and managing. Patient with low urine ouput Vas cath and dialysis yesterday. MWF schedule (5) Hypertension Status: Acute Plan: Continue current regimen. B/P 100/59 will monitor. (6) Tobacco abuse Status: Acute Plan: smoking cessation needed (7) Diabetes Status: Acute Plan: BS monitored adjust treatment as needed/ BS [id number] (8) Atrial fibrillation Status: Acute Plan: Cardiology consulted. Rate controlled. INR therapeutic (9) Elevated INR Status: Acute Plan: Hematology consulted and managing. Vitamin k daily. INR 2.4 today. (10) Anemia Status: Acute Plan: HGB stable at 8.1. Monitoring (11) Swelling of right upper extremity Status: Acute Plan: Most likely dependent edema. US with superficial thrombosis Assessment and Plan Assessment and plan discussed with Dr. Bird Discussed Condition With Nursing Problem Qualifiers (1) Sepsis: Qualified Code: A41.9 - Sepsis, due to unspecified organism (2) Diabetes: Cherie Loyd Mar 03, 2017 09:02
[2017-03-03] MEDS: SODIUM CHLORIDE 0.9% FLUSH 10 ML FLUSH IV FLUSH SCH ×2 (10:08→20:56)
--- NOTE | 2017-03-03 12:02 | HHI.IDPN ---
Subjective Subjective Remarks Notes reviewed Notes reviewed Doing well post extubation On nasal O2 Not SOB BP ok, not on pressors Temps ok Had R AKA last Sunday 02/25 WBC continues to improve Nothing new on C/S Antibiotics Zosyn Levaquin Lines R neck central line LISelwyn leon Past Medical History AFIB Hyperlipidemia Diabetes GERD Hypertension Renal Failure Thyroid Disease Past Surgical History Previous tracheostomy AV fistula in the right upper extremity Allergies: Coded Allergies: No Known Allergies (Unverified , 01/11/17) Objective . Vital Signs Date Time Temp Pulse Resp B/P Pulse Ox O2 Delivery O2 Flow Rate FiO2 03/03/17 10:00 80 03/03/17 08:57 98 Nasal Cannula 2.00 03/03/17 08:00 98.0 80 20 118/72 98 03/03/17 08:00 80 03/03/17 07:00 98 Nasal Cannula 2.00 03/03/17 06:00 72 03/03/17 04:00 98.2 84 10 100/59 100 03/03/17 04:00 84 03/03/17 02:00 79 03/03/17 00:00 88 03/03/17 00:00 98.7 75 11 112/64 100 03/02/17 22:00 91 03/02/17 20:18 100 Nasal Cannula 2.00 03/02/17 20:00 76 03/02/17 20:00 98.3 76 16 101/58 100 03/02/17 19:15 98 Nasal Cannula 2.00 03/02/17 18:00 80 03/02/17 16:00 93 03/02/17 16:00 97.9 93 18 119/67 100 03/02/17 14:00 84 03/02/17 12:00 98.0 79 17 120/59 99 03/02/17 12:00 79 03/02/17 03/02/17 03/03/17 15:00 23:00 07:00 Intake Total 372 ml 391 ml 89 ml Output Total 60 ml 25 ml 30 ml Balance 312 ml 366 ml 59 ml Intake Oral 240 ml 300 ml IV Total 82 ml 91 ml 89 ml Other 50 ml Output Urine Total 60 ml 25 ml 30 ml # Bowel Movements 1 1 2 . Laboratory Tests Test 03/02/17 03/03/17 04:45 05:30 White Blood Count 15.4 TH/MM3 13.5 TH/MM3 Red Blood Count 2.80 MIL/MM3 2.78 MIL/MM3 Hemoglobin 8.1 GM/DL 8.1 GM/DL Hematocrit 24.5 % 24.6 % Mean Corpuscular Volume 87.6 FL 88.4 FL Mean Corpuscular Hemoglobin 28.9 PG 29.1 PG Mean Corpuscular Hemoglobin 33.0 % 32.9 % Concent Red Cell Distribution Width 15.5 % 15.2 % Platelet Count 244 TH/MM3 244 TH/MM3 Mean Platelet Volume 9.2 FL 8.9 FL Neutrophils (%) (Auto) 89.9 % 85.9 % Lymphocytes (%) (Auto) 3.1 % 3.3 % Monocytes (%) (Auto) 5.7 % 8.0 % Eosinophils (%) (Auto) 1.2 % 1.8 % Basophils (%) (Auto) 0.1 % 1.0 % Neutrophils # (Auto) 13.8 TH/MM3 11.6 TH/MM3 Lymphocytes # (Auto) 0.5 TH/MM3 0.5 TH/MM3 Monocytes # (Auto) 0.9 TH/MM3 1.1 TH/MM3 Eosinophils # (Auto) 0.2 TH/MM3 0.2 TH/MM3 Basophils # (Auto) 0.0 TH/MM3 0.1 TH/MM3 CBC Comment DIFF FINAL AUTO DIFF Differential Comment AUTO DIFF CONFIRMED Platelet Estimate NORMAL Platelet Morphology Comment NORMAL Laboratory Tests Test 03/02/17 03/03/17 04:45 05:30 Sodium Level 140 MEQ/L 139 MEQ/L Potassium Level 3.7 MEQ/L 3.5 MEQ/L Chloride Level 101 MEQ/L 99 MEQ/L Carbon Dioxide Level 25.3 MEQ/L 30.8 MEQ/L Anion Gap 14 MEQ/L 9 MEQ/L Blood Urea Nitrogen 42 MG/DL 30 MG/DL Creatinine 4.60 MG/DL 3.89 MG/DL Estimat Glomerular Filtration 13 ML/MIN 15 ML/MIN Rate Random Glucose 88 MG/DL 133 MG/DL Calcium Level 8.1 MG/DL 8.2 MG/DL Magnesium Level 1.7 MG/DL Total Bilirubin 0.7 MG/DL 0.6 MG/DL Aspartate Amino Transf 27 U/L 26 U/L (AST/SGOT) Alanine Aminotransferase 10 U/L 11 U/L (ALT/SGPT) Alkaline Phosphatase 102 U/L 109 U/L Total Protein 5.7 GM/DL 5.8 GM/DL Albumin 1.6 GM/DL 1.5 GM/DL Microbiology Date/Time Procedure Status Source Growth 02/28/17 17:10 Aerobic Blood Culture - Preliminary Resulted Blood Peripheral NO GROWTH IN 3 DAYS 02/28/17 17:10 Anaerobic Blood Culture - Preliminary Resulted Blood Peripheral NO GROWTH IN 3 DAYS 02/28/17 17:15 Aerobic Blood Culture - Preliminary Resulted Blood Peripheral NO GROWTH IN 3 DAYS 02/28/17 17:15 Anaerobic Blood Culture - Preliminary Resulted Blood Peripheral NO GROWTH IN 3 DAYS Imaging Chest X-Ray 03/02/17 0600 Signed Impressions: Service Date/Time: Thursday, March 02, 2017 05:26 - CONCLUSION: Dense consolidation left lower lobe. Tubes and catheters are in good position. Gabriel Beavers MD Foot X-Ray 02/22/17 0000 Signed Impressions: Service Date/Time: Wednesday, February 22, 2017 17:46 - CONCLUSION: Soft tissues extensive soft tissue emphysema, mottled in appearance very concerning for infection with gas-forming organism. No obvious osseous destruction is seen to suggest osteomyelitis. Abhi Seo MD Physical Exam GENERAL: awake and alert SKIN: Cool and dry. Has a lot of purpuric lesions in UE. No generalized rash HEENT: Labelle conjunctivae. No scleral icterus. No injection or drainage. Moist mucosa NECK: Supple, nontender, no meningeal signs. Lines ok CARDIOVASCULAR: Regular rate and rhythm without murmurs, gallops, or rubs. RESPIRATORY: Decreased BS bases GASTROINTESTINAL: Abdomen soft, non-tender, nondistended. No hepato-splenomegaly , or palpable masses. No guarding. MUSCULOSKELETAL: LLE without clubbing, cyanosis, or edema. No joint tenderness, effusion. S/P R AKA with dry dressing. NEUROLOGICAL: Awake and alert PSYCH: Calm and cooperative LINE: Lines with no evidence of infection Assessment & Plan Remarks IMPRESSION IMPRESSION Lethargy, persistent leukocytosis, low BP - better - nothing new on C/S - leukocytosis better Sepsis with proteus and Enterococcus due to wet gangrene R foot - repeat BC negative Respiratory failure, doing well post extubation DFI, PVD with wet gangrene - S/P R AKA (2 staged) - foot C/S Proteus, Enterococcus and PSAE Renal failure - has been started on HD RECOMMENDATION Change Abx to Augmentin and Levaquin Give Abx until March 08 Monitor progress Clinically doing well from ID standpoint Connie Cerna MD Mar 03, 2017 12:02
--- NOTE | 2017-03-03 12:58 | PD.CARD.PN ---
Subjective Subjective Remarks No CP or SOB, feels better Objective Medications Current Medications Medications (Trade) Dose Ordered Sig/[place] Route Start Time Stop Time Status Last Admin (NS Flush) 2 ml UNSCH PRN IV FLUSH 02/22/17 18:15 (NS Flush) 2 ml BID IV FLUSH 02/22/17 21:00 03/03/17 10:08 (Zofran Inj) 4 mg Q6H PRN IVP 02/22/17 18:15 (Narcan Inj) 0.4 mg UNSCH PRN IV 02/22/17 18:15 ([place] 10-325 Mg) 1 tab Q4H PRN PO 02/22/17 18:15 03/02/17 12:05 (Tenormin) 100 mg BID PO 02/22/17 21:00 03/03/17 08:43 (Lipitor) 40 mg HS PO 02/22/17 21:00 03/02/17 20:30 (Catapres) 0.1 mg BID PO 02/22/17 21:00 03/03/17 08:43 (Cardizem Cd) 240 mg DAILY PO 02/23/17 09:00 03/03/17 08:43 (Protonix) 40 mg DAILY PO 02/23/17 09:00 03/03/17 08:43 (Synthroid) 100 mcg DAILY@06 PO 02/23/17 06:00 03/03/17 06:00 (Synthroid) 75 mcg DAILY@06 PO 02/23/17 06:00 03/03/17 06:00 (Heparin Inj) 5,000 units Q12HR SQ 02/24/17 09:00 Hold 02/26/17 08:08 (D50w (Vial) Inj) 25 ml UNSCH PRN IV PUSH 02/24/17 11:45 (Glucagon Inj) 1 mg UNSCH PRN OTHER 02/24/17 11:45 (Vitamin D3) 5,000 units DAILY PO 02/25/17 09:00 03/03/17 08:43 (Imodium) 2 mg Q6H PRN PO 02/24/17 20:30 02/24/17 20:54 (Lasix) 40 mg DAILY PO 02/25/17 09:00 03/03/17 08:43 (Lotrisone Cream) 1 applic Q12HR TOPICAL 02/27/17 09:00 03/02/17 20:30 (Mephyton) 2.5 mg DAILY PO 03/01/17 09:00 03/03/17 08:43 (Neurontin) 100 mg TID PO 02/28/17 13:00 03/03/17 12:54 (Pill Splitter) 1 ea UNSCH PRN OTHER 02/28/17 12:00 (Januvia) 25 mg DAILY PO 03/01/17 09:00 03/03/17 10:07 (NS Flush) UNSCH PRN IVF 03/01/17 10:15 Heparin Sodium (Porcine) UNSCH PRN IV FLUSH 03/01/17 10:15 (NS 1000 ml Inj) 1,000 ml @ 0 mls/hr Q0M PRN IV 03/01/17 11:39 Heparin Sodium (Porcine) 8000 units 8,000 units UNSCH PRN IVF 03/01/17 11:45 03/02/17 14:44 Sodium Chloride 1,000 ml @ 200 mls/hr Q5H PRN IV 03/01/17 11:39 (NS 1000 ml Inj) 1,000 ml @ 0 mls/hr Q0M PRN IV 03/01/17 11:39 (Mannitol Inj) 12.5 gm UNSCH PRN IV 03/01/17 11:45 (Albumin 25% Inj) 25 gm UNSCH PRN IV 03/01/17 11:45 (NS Flush) 5 ml UNSCH PRN IV FLUSH 03/01/17 11:45 (Heparin Inj) UNSCH PRN .XX 03/01/17 11:45 03/01/17 17:33 (Gentamicin (Dialysis) Inj) 20 mg UNSCH PRN IV 03/01/17 11:45 03/02/17 14:44 (Zofran Inj) 4 mg UNSCH PRN IV 03/01/17 11:45 (Tylenol) 650 mg UNSCH PRN PO 03/01/17 11:45 (Benadryl) 25 mg UNSCH PRN PO 03/01/17 11:45 (Nitrostat Sl) 0.4 mg UNSCH PRN SL 03/01/17 11:45 (Catapres) 0.1 mg UNSCH PRN PO 03/01/17 11:45 Gelatin 1 foam 1 foam UNSCH PRN TOP 03/01/17 11:45 (fentaNYL DRIP) 250 ml @ 0 mls/hr TITRATE IV 03/01/17 18:00 (Nephrocaps) 1 cap DAILY PO 03/03/17 09:00 03/03/17 09:00 (Levaquin) 250 mg Q48H PO 03/03/17 13:00 03/09/17 12:59 (Augmentin) 500 mg Q12HR PO 03/03/17 20:00 03/08/17 23:00 Vital Signs / I&O Vital Signs Date Time Temp Pulse Resp B/P Pulse Ox O2 Delivery O2 Flow Rate FiO2 03/03/17 10:00 80 03/03/17 08:57 98 Nasal Cannula 2.00 03/03/17 08:00 98.0 80 20 118/72 98 03/03/17 08:00 80 03/03/17 07:00 98 Nasal Cannula 2.00 03/03/17 06:00 72 03/03/17 04:00 98.2 84 10 100/59 100 03/03/17 04:00 84 03/03/17 02:00 79 03/03/17 00:00 88 03/03/17 00:00 98.7 75 11 112/64 100 03/02/17 22:00 91 03/02/17 20:18 100 Nasal Cannula 2.00 03/02/17 20:00 76 03/02/17 20:00 98.3 76 16 101/58 100 03/02/17 19:15 98 Nasal Cannula 2.00 03/02/17 18:00 80 03/02/17 16:00 93 03/02/17 16:00 97.9 93 18 119/67 100 03/02/17 14:00 84 I/O 03/02/17 03/02/17 03/02/17 03/03/17 03/03/17 03/03/17 07:00 15:00 23:00 07:00 15:00 23:00 Intake Total 280 ml 372 ml 391 ml 89 ml Output Total 50 ml 60 ml 25 ml 30 ml Balance 230 ml 312 ml 366 ml 59 ml Intake Oral 240 ml 300 ml IV Total 220 ml 82 ml 91 ml 89 ml Tube Irrigant 60 ml Other 50 ml Output Urine Total 50 ml 60 ml 25 ml 30 ml # Bowel Movements 1 1 2 Physical Exam GENERAL: In NAD SKIN: Warm and dry. HEAD: Normocephalic. EYES: No scleral icterus. No injection or drainage. NECK: Supple, trachea midline. No JVD or lymphadenopathy. CARDIOVASCULAR: Irreg rhythm without murmurs, gallops, or rubs. RESPIRATORY: Breath sounds equal bilaterally. No accessory muscle use. GASTROINTESTINAL: Abdomen soft, non-tender, nondistended. MUSCULOSKELETAL: No cyanosis, or edema, s/p R AKA Laboratory Laboratory Tests Test 03/02/17 03/03/17 03/03/17 17:50 01:45 05:30 Nasal Screen MRSA (PCR) NEGATIVE Stool C. difficile Toxin (PCR) NEGATIVE Stl C. difficile Toxin PRESUMPTIVE Epiderm 027 NEGATIVE White Blood Count 13.5 TH/MM3 Red Blood Count 2.78 MIL/MM3 Hemoglobin 8.1 GM/DL Hematocrit 24.6 % Mean Corpuscular Volume 88.4 FL Mean Corpuscular Hemoglobin 29.1 PG Mean Corpuscular Hemoglobin 32.9 % Concent Red Cell Distribution Width 15.2 % Platelet Count 244 TH/MM3 Mean Platelet Volume 8.9 FL Neutrophils (%) (Auto) 85.9 % Lymphocytes (%) (Auto) 3.3 % Monocytes (%) (Auto) 8.0 % Eosinophils (%) (Auto) 1.8 % Basophils (%) (Auto) 1.0 % Neutrophils # (Auto) 11.6 TH/MM3 Lymphocytes # (Auto) 0.5 TH/MM3 Monocytes # (Auto) 1.1 TH/MM3 Eosinophils # (Auto) 0.2 TH/MM3 Basophils # (Auto) 0.1 TH/MM3 CBC Comment AUTO DIFF Differential Comment AUTO DIFF CONFIRMED Platelet Estimate NORMAL Platelet Morphology Comment NORMAL Sodium Level 139 MEQ/L Potassium Level 3.5 MEQ/L Chloride Level 99 MEQ/L Carbon Dioxide Level 30.8 MEQ/L Anion Gap 9 MEQ/L Blood Urea Nitrogen 30 MG/DL Creatinine 3.89 MG/DL Estimat Glomerular Filtration 15 ML/MIN Rate Random Glucose 133 MG/DL Calcium Level 8.2 MG/DL Total Bilirubin 0.6 MG/DL Aspartate Amino Transf 26 U/L (AST/SGOT) Alanine Aminotransferase 11 U/L (ALT/SGPT) Alkaline Phosphatase 109 U/L Total Protein 5.8 GM/DL Albumin 1.5 GM/DL Imaging Last Impressions Chest X-Ray 03/02/17 0600 Signed Impressions: Service Date/Time: Thursday, March 02, 2017 05:26 - CONCLUSION: Dense consolidation left lower lobe. Tubes and catheters are in good position. Gabriel Beavers MD Upper Extremity Ultrasound 03/02/17 0000 Signed Impressions: Service Date/Time: Thursday, March 02, 2017 21:15 - CONCLUSION: Superficial nonocclusive thrombus in the distal cephalic vein to the antecubital fossa. Gabriel Beavers MD Foot X-Ray 02/22/17 0000 Signed Impressions: Service Date/Time: Wednesday, February 22, 2017 17:46 - CONCLUSION: Soft tissues extensive soft tissue emphysema, mottled in appearance very concerning for infection with gas-forming organism. No obvious osseous destruction is seen to suggest osteomyelitis. Abhi Seo MD Assessment and Plan Problem List: (1) PVD (peripheral vascular disease) (2) Unilateral AKA (3) Atrial fibrillation (4) Coagulopathy (5) Acute renal failure superimposed on stage 4 chronic kidney disease (6) Diabetes (7) Hypertension Assessment and Plan A fib rate remains controlled. Continue ICU care. Cont current program including antibiotics. Increase activity as tolerated. Remains stable from cardiac standpoint. Problem Qualifiers (1) Unilateral AKA: Qualified Code: Z89.611 - Unilateral AKA, right (2) Diabetes: David Greenberg MD Mar 03, 2017 12:58
[2017-03-03 14:09] LABS: INTERNATIONAL NORMALIZED RATIO 1.5 RATIO; PROTHROMBIN TIME - PATIENT 16.4 SEC (9.8-11.6)
[2017-03-03] MEDS: LEVOFLOXACIN 250 MG TAB PO SCH (14:16)
--- NOTE | 2017-03-03 14:35 | PD.ONC.PN ---
Subjective Subjective Remarks Afebrile overnight. Patient resting comfortably. He reports he had two bowel movements today. No bleeding. Objective Data Date Time Temp Pulse Resp B/P Pulse Ox O2 Delivery O2 Flow Rate FiO2 03/03/17 12:00 83 03/03/17 12:00 98.2 80 20 139/70 98 03/03/17 10:00 80 03/03/17 08:57 98 Nasal Cannula 2.00 03/03/17 08:00 98.0 80 20 118/72 98 03/03/17 08:00 80 03/03/17 07:00 98 Nasal Cannula 2.00 03/03/17 06:00 72 03/03/17 04:00 98.2 84 10 100/59 100 03/03/17 04:00 84 03/03/17 02:00 79 03/03/17 00:00 88 03/03/17 00:00 98.7 75 11 112/64 100 03/02/17 22:00 91 03/02/17 20:18 100 Nasal Cannula 2.00 03/02/17 20:00 76 03/02/17 20:00 98.3 76 16 101/58 100 03/02/17 19:15 98 Nasal Cannula 2.00 03/02/17 18:00 80 03/02/17 16:00 93 03/02/17 16:00 97.9 93 18 119/67 100 03/03/17 03/03/17 03/03/17 07:00 15:00 23:00 Intake Total 89 ml Output Total 30 ml Balance 59 ml Result Diagram: 03/03/1730 03/03/17 0530 Laboratory Results Laboratory Tests Test 03/02/17 03/03/17 03/03/17 03/03/17 17:50 01:45 05:30 13:55 Nasal Screen MRSA (PCR) NEGATIVE Stool C. difficile Toxin (PCR) NEGATIVE Stl C. difficile Toxin PRESUMPTIVE Epiderm 027 NEGATIVE White Blood Count 13.5 TH/MM3 Red Blood Count 2.78 MIL/MM3 Hemoglobin 8.1 GM/DL Hematocrit 24.6 % Mean Corpuscular Volume 88.4 FL Mean Corpuscular Hemoglobin 29.1 PG Mean Corpuscular Hemoglobin 32.9 % Concent Red Cell Distribution Width 15.2 % Platelet Count 244 TH/MM3 Mean Platelet Volume 8.9 FL Neutrophils (%) (Auto) 85.9 % Lymphocytes (%) (Auto) 3.3 % Monocytes (%) (Auto) 8.0 % Eosinophils (%) (Auto) 1.8 % Basophils (%) (Auto) 1.0 % Neutrophils # (Auto) 11.6 TH/MM3 Lymphocytes # (Auto) 0.5 TH/MM3 Monocytes # (Auto) 1.1 TH/MM3 Eosinophils # (Auto) 0.2 TH/MM3 Basophils # (Auto) 0.1 TH/MM3 CBC Comment AUTO DIFF Differential Comment AUTO DIFF CONFIRMED Platelet Estimate NORMAL Platelet Morphology Comment NORMAL Sodium Level 139 MEQ/L Potassium Level 3.5 MEQ/L Chloride Level 99 MEQ/L Carbon Dioxide Level 30.8 MEQ/L Anion Gap 9 MEQ/L Blood Urea Nitrogen 30 MG/DL Creatinine 3.89 MG/DL Estimat Glomerular Filtration 15 ML/MIN Rate Random Glucose 133 MG/DL Calcium Level 8.2 MG/DL Total Bilirubin 0.6 MG/DL Aspartate Amino Transf 26 U/L (AST/SGOT) Alanine Aminotransferase 11 U/L (ALT/SGPT) Alkaline Phosphatase 109 U/L Total Protein 5.8 GM/DL Albumin 1.5 GM/DL Prothrombin Time 16.4 SEC Prothromb Time International 1.5 RATIO Ratio Culture Results Microbiology Date/Time Procedure Status Source Growth 02/28/17 17:10 Aerobic Blood Culture - Preliminary Resulted Blood Peripheral NO GROWTH IN 3 DAYS 02/28/17 17:10 Anaerobic Blood Culture - Preliminary Resulted Blood Peripheral NO GROWTH IN 3 DAYS 02/28/17 17:15 Aerobic Blood Culture - Preliminary Resulted Blood Peripheral NO GROWTH IN 3 DAYS 02/28/17 17:15 Anaerobic Blood Culture - Preliminary Resulted Blood Peripheral NO GROWTH IN 3 DAYS Administered Medications Medications (Trade) Dose Ordered Sig/Libia Route PRN Reason Start Time Stop Time Status Last Admin Dose Admin Sodium Chloride (NS Flush) 2 ml BID IV FLUSH 02/22/17 21:00 03/03/17 10:08 Acetaminophen/ Hydrocodone Bitart ([place] 10-325 Mg) 1 tab Q4H PRN PO PAIN SCALE 1 TO 7 02/22/17 18:15 03/02/17 12:05 Atenolol (Tenormin) 100 mg BID PO 02/22/17 21:00 03/03/17 08:43 Atorvastatin Calcium (Lipitor) 40 mg HS PO 02/22/17 21:00 03/02/17 20:30 Clonidine (Catapres) 0.1 mg BID PO 02/22/17 21:00 03/03/17 08:43 Diltiazem HCl (Cardizem Cd) 240 mg DAILY PO 02/23/17 09:00 03/03/17 08:43 Pantoprazole Sodium (Protonix) 40 mg DAILY PO 02/23/17 09:00 03/03/17 08:43 Levothyroxine Sodium (Synthroid) 100 mcg DAILY@06 PO 02/23/17 06:00 03/03/17 06:00 Levothyroxine Sodium (Synthroid) 75 mcg DAILY@06 PO 02/23/17 06:00 03/03/17 06:00 Heparin Sodium (Porcine) (Heparin Inj) 5,000 units Q12HR SQ 02/24/17 09:00 Hold 02/26/17 08:08 Cholecalciferol (Vitamin D3) 5,000 units DAILY PO 02/25/17 09:00 03/03/17 08:43 Loperamide HCl (Imodium) 2 mg Q6H PRN PO DIARRHEA 02/24/17 20:30 02/24/17 20:54 Furosemide (Lasix) 40 mg DAILY PO 02/25/17 09:00 03/03/17 08:43 Betamethasone/ Clotrimazole (Lotrisone Cream) 1 applic Q12HR TOPICAL 02/27/17 09:00 03/02/17 20:30 Phytonadione (Mephyton) 2.5 mg DAILY PO 03/01/17 09:00 Hold 03/03/17 08:43 Gabapentin (Neurontin) 100 mg TID PO 02/28/17 13:00 03/03/17 12:54 Sitagliptin Phosphate (Januvia) 25 mg DAILY PO 03/01/17 09:00 03/03/17 10:07 Heparin Sodium (Porcine) (Heparin Inj) 8,000 units UNSCH PRN IVF WITH DIALYSIS 03/01/17 11:45 03/02/17 14:44 Heparin Sodium (Porcine) (Heparin Inj) UNSCH PRN .XX WITH DIALYSIS 03/01/17 11:45 03/01/17 17:33 Gentamicin Sulfate (Gentamicin (Dialysis) Inj) 20 mg UNSCH PRN IV WITH DIALYSIS 03/01/17 11:45 03/02/17 14:44 Vitamin B Complex/ Vit C/Folic Acid (Nephrocaps) 1 cap DAILY PO 03/03/17 09:00 03/03/17 09:00 Levofloxacin (Levaquin) 250 mg Q48H PO 03/03/17 13:00 03/09/17 12:59 03/03/17 14:16 Objective Remarks GENERAL: Elderly male sitting up in bed in [facility]. SKIN: Warm and dry. scattered bruises on extremities. HEAD: Normocephalic. EYES: No injection or drainage. NECK: Supple, trachea midline. CARDIOVASCULAR: +S1/S2 RESPIRATORY: Breath sounds equal bilaterally. No accessory muscle use. GASTROINTESTINAL: Abdomen soft, non-tender, nondistended. EXTREMITIES: No cyanosis. RLE with AKA. no bleeding on bandages NEUROLOGICAL: awake and alert, normal speech. able to move extremities. Assessment/Plan Problem List: (1) Anemia Status: Acute Plan: -- Likely secondary to acute blood loss compounded by renal failure and chronic illness. --transfuse as needed to keep hgb>8 (2) Coagulopathy Status: Chronic Plan: --Likely multifactorial secondary to vitamin K deficiency, consumption secondary to recent surgery, consumption secondary to recent sepsis and likely decreased hepatic synthetic function (as evidenced by decreased albumin levels). Assessment 71y/o male with supratherapeutic INR in a patient with sepsis secondary to gangrene. --history of atrial fibrillation --has been on Warfarin >10 years. 2.5 mg daily six days a week and 2 mg one day a week. This helped maintain his INR at about 2.5. --s/p right [id number] amputation on 02/23/2017. h/o Diabetes Peripheral vascular disease tobaccoism Agent orange exposure Advanced stage chronic kidney failure Hyperlipidemia Gastroesophageal reflux disease Hypertension Hypothyroidism Plan 1. INR=1.5 today. I will resume his prophylactic dose heparin at 5000units SQ q 12 hours. 2. stop vitamin K 3. will hold off on resuming Coumdin until we see what happens to his INR off vitamin K 4. no need for blood transfusion today. monitor CBC and transfuse for hgb<8 or bleeding. Charo Medellin Mar 03, 2017 14:35
--- NOTE | 2017-03-03 15:03 | HHI.NPPN ---
Subjective History of Present Illness This patient is a 71-year-old male with a history of long-standing diabetes mellitus and hypertension as well as chronic kidney disease known to me from the office, approaching end-stage renal disease. 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 Patient did have an AV dialysis shunt placed in preparation for dialysis unfortunately access failed. Is on sodium bicarbonate chronically for metabolic acidosis. There has been concern regarding nutritional status recently. Interval History Patient sitting up in bed. No verbal complaints. Review of Systems General General Remarks Unable to obtain Objective Data Data 03/02/17 03/03/17 19:00 07:00 Intake Total 572 ml 280 ml Output Total 60 ml 55 ml Balance 512 ml 225 ml Intake Oral 440 ml 100 ml IV Total 82 ml 180 ml Other 50 ml Output Urine Total 60 ml 55 ml # Bowel Movements 2 2 Vital Signs Date Time Temp Pulse Resp B/P Pulse Ox O2 Delivery O2 Flow Rate FiO2 03/03/17 12:00 83 03/03/17 12:00 98.2 80 20 139/70 98 03/03/17 10:00 80 03/03/17 08:57 98 Nasal Cannula 2.00 03/03/17 08:00 98.0 80 20 118/72 98 03/03/17 08:00 80 03/03/17 07:00 98 Nasal Cannula 2.00 03/03/17 06:00 72 03/03/17 04:00 98.2 84 10 100/59 100 03/03/17 04:00 84 03/03/17 02:00 79 03/03/17 00:00 88 03/03/17 00:00 98.7 75 11 112/64 100 03/02/17 22:00 91 03/02/17 20:18 100 Nasal Cannula 2.00 03/02/17 20:00 76 03/02/17 20:00 98.3 76 16 101/58 100 03/02/17 19:15 98 Nasal Cannula 2.00 03/02/17 18:00 80 03/02/17 16:00 93 03/02/17 16:00 97.9 93 18 119/67 100 -: 03/03/17 0530 03/03/17 0530 Tubes & Lines: Vas-Cath ([facility]) Physical Exam General Appearance: No Acute Distress Eyes Eye Exam: Sclera White Pulmonary Resp Exam: Clear Bilaterally, Breath Sounds Equal, No Distress Cardiology CV Exam: Regular, Normal Sinus Rhythm Gastrointestinal/Abdomen GI Exam: Soft, Non-Tender Integumentary Skin Exam: Clear, Warm Extremeties Extremities Exam: Moderate Edema (right upper extremity. None in LLE), Pitting Edema Assessment/Plan Discussed Condition With: Patient, Spouse Problem List: (1) CKD (chronic kidney disease) stage 4, GFR 15-29 ml/min Plan: Continues to remain more alert. Hemodialysis planned for tomorrow. Will also request for PermCath placement as INR has improved. Continue on Tuesday schedule. Discussed with patient. Medications should be adjusted for the patient's ESRD. Avoid gadolinium (2) Metabolic acidosis Plan: Improve with dialysis. (3) Dialysis AV fistula malfunction Plan: Awaiting consult from Dr. Leonard (4) Vitamin D deficiency Plan: Vitamin D as ordered. (5) Malnutrition Plan: Agree with nutritional supplementation and patient was encouraged to improve his dietary protein intake. (6) Diabetes Plan: Management per primary care physician. (7) Hypertension Plan The exam, history, and the medical decision-making described in the above note were completed with the assistance of the ALFRED. I reviewed and agree with the findings presented. Problem Qualifiers (1) Diabetes: Jeremiah Hagan MD Mar 03, 2017 15:02
[2017-03-03] MEDS ORDERED: VANCOMYCIN INJ 1,000 MG in SODIUM CHLOR 0.9% 250 ML INJ 250 ML IV SCH (17:15)
[2017-03-03] MEDS ORDERED: ceFAZolin 2 GM PREMIX 50 ML IV SCH (17:15)
[2017-03-03 17:45] LABS: APTT (PATIENT) 42.8 SEC (24.3-30.1)
--- NOTE | 2017-03-03 20:22 | HHI.PR ---
Subjective Remarks YOWM with COPD, Hypercapnoic RF, s/p Right AKA Extubated, On NC Opens eyes No Fever C. diff positive Objective Vital Signs Vital Signs Date Time Temp Pulse Resp B/P Pulse Ox O2 Delivery O2 Flow Rate FiO2 03/03/17 18:00 76 03/03/17 16:00 76 03/03/17 16:00 97.9 76 18 127/74 96 03/03/17 14:00 83 03/03/17 12:00 83 03/03/17 12:00 98.2 80 20 139/70 98 03/03/17 10:00 80 03/03/17 08:57 98 Nasal Cannula 2.00 03/03/17 08:00 98.0 80 20 118/72 98 03/03/17 08:00 80 03/03/17 07:00 98 Nasal Cannula 2.00 03/03/17 06:00 72 03/03/17 04:00 98.2 84 10 100/59 100 03/03/17 04:00 84 03/03/17 02:00 79 03/03/17 00:00 88 03/03/17 00:00 98.7 75 11 112/64 100 03/02/17 22:00 91 I/O 03/02/17 03/02/17 03/02/17 03/03/17 03/03/17 03/03/17 07:00 15:00 23:00 07:00 15:00 23:00 Intake Total 280 ml 372 ml 391 ml 89 ml 525 ml Output Total 50 ml 60 ml 25 ml 30 ml 100 ml Balance 230 ml 312 ml 366 ml 59 ml 425 ml Intake Oral 240 ml 300 ml 525 ml IV Total 220 ml 82 ml 91 ml 89 ml Tube Irrigant 60 ml Other 50 ml Output Urine Total 50 ml 60 ml 25 ml 30 ml 100 ml # Bowel Movements 1 1 2 2 Result Diagram: 03/03/1730 03/03/17 0530 Objective Remarks GENERAL: MBMN WM, on Vent SKIN: Warm and dry. HEAD: Normocephalic. EYES: No scleral icterus. No injection or drainage. NECK: Supple, trachea midline. No JVD or lymphadenopathy. CARDIOVASCULAR: Regular rate and rhythm without murmurs, gallops, or rubs. RESPIRATORY: Breath sounds equal bilaterally. No accessory muscle use. GASTROINTESTINAL: Abdomen soft, non-tender, nondistended. MUSCULOSKELETAL: No cyanosis, or edema. Right AKA BACK: Nontender without obvious deformity. No CVA tenderness. A/P Assessment and Plan VDRF %Hypercapnoic RF COPD AF DM S/P Right AKA PLAN: Aerosol nebs Cont Abx Monitor BS Supplemen to keep sat >t Ronny Sams MD Mar 03, 2017 20:22
[2017-03-03] MEDS: AMOXICILLIN/CLAVULANATE K 500 MG TAB PO SCH ×2 (20:47→21:00)
[2017-03-03] MEDS: ATORVASTATIN 40 MG TAB PO SCH (20:48)
[2017-03-03] MEDS: LOPERAMIDE HCL 2 MG CAP PO PRN (20:48)
[2017-03-04] VITALS (11 sets, daily range): BP systolic 108–164; BP diastolic 59–92; PULSE 67–100; RESP 17–18; TEMP 95.2–98.2; O2SAT 94–100
[2017-03-04] MEDS: LEVOTHYROXINE SODIUM 100 MCG TAB PO SCH (05:50)
[2017-03-04] MEDS: LEVOTHYROXINE SODIUM 75 MCG TAB PO SCH (05:50)
[2017-03-04] MEDS: INSULIN NovoLIN REGULAR SUPPLEMENTAL SCALE SQ SCH ×4 (05:51→21:00)
[2017-03-04 06:40] LABS: INTERNATIONAL NORMALIZED RATIO 1.4 RATIO; PROTHROMBIN TIME - PATIENT 15.2 SEC (9.8-11.6)
[2017-03-04 06:51] LABS: AUTOMATED NEUTROPHIL # 12.7 TH/MM3 (1.8-7.7); BASOPHIL # 0.1 TH/MM3 (0-0.2); BASOPHIL % 0.5 % (0.0-2.0); EOSINOPHIL # 0.2 TH/MM3 (0-0.4); EOSINOPHIL % 1.7 % (0.0-4.0); HEMATOCRIT 27.2 % (39.0-51.0); HEMO FLAGS DIFF FINAL; LYMPH % 3.4 % (9.0-44.0); LYMPHOCYTE # 0.5 TH/MM3 (1.0-4.8); MEAN CELL VOLUME 89.5 FL (80.0-100.0); MEAN CORPUSCULAR HEMOGLOBIN 28.6 PG (27.0-34.0); MONO % 6.1 % (0.0-8.0); NEUT % 88.3 % (16.0-70.0); PLATELET COUNT 249 TH/MM3 (150-450); RED BLOOD COUNT 3.04 MIL/MM3 (4.50-5.90); RED CELL DISTRIBUTION WIDTH 15.8 % (11.6-17.2); WHITE BLOOD COUNT 14.4 TH/MM3 (4.0-11.0)
[2017-03-04 07:03] LABS: BICARBONATE 30.7 MEQ/L (21.0-32.0); POTASSIUM 3.3 MEQ/L (3.5-5.1)
[2017-03-04] MEDS: GABAPENTIN 100 MG CAP PO SCH ×3 (09:00→17:47)
[2017-03-04] MEDS: AMOXICILLIN/CLAVULANATE K 500 MG TAB PO SCH ×2 (09:00→20:35)
[2017-03-04] MEDS: ATENOLOL 100 MG TAB PO SCH ×2 (09:00→20:37)
[2017-03-04] MEDS: FUROSEMIDE 40 MG TAB PO SCH (09:00)
[2017-03-04] MEDS: DILTIAZEM-CD 240 MG CAP ER PO SCH (09:00)
[2017-03-04] MEDS: cloNIDine HCL 0.1 MG TAB PO SCH ×2 (09:00→20:37)
[2017-03-04] MEDS: BETAMETHASONE/CLOTRIMAZOLE CREAM 15 GM TOPICAL SCH ×2 (09:00→21:00)
[2017-03-04] MEDS: VITAMIN B CMPLX/VITC/FOLIC AC CAP PO SCH (09:00)
[2017-03-04] MEDS: PANTOPRAZOLE SOD 40 MG DELAYED RELEASE TAB PO SCH (09:00)
[2017-03-04] MEDS: SODIUM CHLORIDE 0.9% FLUSH 10 ML FLUSH IV FLUSH SCH ×2 (09:00→20:38)
[2017-03-04] MEDS: CHOLECALCIFEROL (VIT D3) 5000 UNIT CAP PO SCH (09:00)
[2017-03-04] MEDS: RESP: ALBUTEROL 2.5 MG/IPRATROPIUM 0.5 MG NEB (SCH) NEB ×4 (09:19→19:35)
--- NOTE | 2017-03-04 09:28 | HHI.PR ---
Subjective Remarks Patient is alert and cooperative. My questions about perma cath placement today. Denies any CP or SOB Objective Vital Signs Date Time Temp Pulse Resp B/P Pulse Ox O2 Delivery O2 Flow Rate FiO2 03/04/17 08:00 95.6 76 18 134/71 97 03/04/17 04:03 97.5 74 18 118/74 98 03/04/17 00:00 74 03/04/17 00:00 98.2 72 18 108/59 100 03/03/17 22:00 82 03/03/17 20:22 98 Nasal Cannula 2.00 03/03/17 20:00 70 03/03/17 20:00 97.6 82 16 114/67 100 03/03/17 19:00 98 Nasal Cannula 2.00 03/03/17 18:00 76 03/03/17 16:00 76 03/03/17 16:00 97.9 76 18 127/74 96 03/03/17 14:00 83 03/03/17 12:00 83 03/03/17 12:00 98.2 80 20 139/70 98 03/03/17 10:00 80 I/O 03/03/17 03/03/17 03/03/17 03/04/17 03/04/17 03/04/17 07:00 15:00 23:00 07:00 15:00 23:00 Intake Total 89 ml 525 ml 38 ml Output Total 30 ml 100 ml Balance 59 ml 425 ml 38 ml Intake Oral 525 ml IV Total 89 ml 38 ml Output Urine Total 30 ml 100 ml # Bowel Movements 2 2 Result Diagram: 03/04/17 0603/04/17 06 Procedures 02/23 BKA of right leg 02/25 AKA r leg Objective Remarks GENERAL: cooperative SKIN: Warm and dry. Discoloration in lower extremity HEAD: Normocephalic. EYES: No scleral icterus. No injection or drainage. NECK: Supple, trachea midline. No JVD or lymphadenopathy. CARDIOVASCULAR: Regular rate and rhythm without murmurs, gallops, or rubs. RESPIRATORY: Breath sounds equal bilaterally. No accessory muscle use. Intubated GASTROINTESTINAL: Abdomen soft, non-tender, nondistended. MUSCULOSKELETAL: No cyanosis, or edema. Status post right AKA. Dressing on BACK: Nontender without obvious deformity. No CVA tenderness. Medications and IVs Current Medications Medications (Trade) Dose Ordered Sig/Libia Route Start Time Stop Time Status Last Admin (NS Flush) 2 ml UNSCH PRN IV FLUSH 02/22/17 18:15 (NS Flush) 2 ml BID IV FLUSH 02/22/17 21:00 03/03/17 20:56 (Zofran Inj) 4 mg Q6H PRN IVP 02/22/17 18:15 (Narcan Inj) 0.4 mg UNSCH PRN IV 02/22/17 18:15 ([place] 10-325 Mg) 1 tab Q4H PRN PO 02/22/17 18:15 03/02/17 12:05 (Tenormin) 100 mg BID PO 02/22/17 21:00 03/03/17 20:48 (Lipitor) 40 mg HS PO 02/22/17 21:00 03/03/17 20:48 (Catapres) 0.1 mg BID PO 02/22/17 21:00 03/03/17 08:43 (Cardizem Cd) 240 mg DAILY PO 02/23/17 09:00 03/03/17 08:43 (Protonix) 40 mg DAILY PO 02/23/17 09:00 03/03/17 08:43 (Synthroid) 100 mcg DAILY@06 PO 02/23/17 06:00 03/04/17 05:50 (Synthroid) 75 mcg DAILY@06 PO 02/23/17 06:00 03/04/17 05:50 (Heparin Inj) 5,000 units Q12HR SQ 02/24/17 09:00 Hold 02/26/17 08:08 (D50w (Vial) Inj) 25 ml UNSCH PRN IV PUSH 02/24/17 11:45 (Glucagon Inj) 1 mg UNSCH PRN OTHER 02/24/17 11:45 (Vitamin D3) 5,000 units DAILY PO 02/25/17 09:00 03/03/17 08:43 (Imodium) 2 mg Q6H PRN PO 02/24/17 20:30 03/03/17 20:48 (Lasix) 40 mg DAILY PO 02/25/17 09:00 03/03/17 08:43 (Lotrisone Cream) 1 applic Q12HR TOPICAL 02/27/17 09:00 03/03/17 21:09 (Mephyton) 2.5 mg DAILY PO 03/01/17 09:00 Hold 03/03/17 08:43 (Neurontin) 100 mg TID PO 02/28/17 13:00 03/03/17 17:56 (Pill Splitter) 1 ea UNSCH PRN OTHER 02/28/17 12:00 (Januvia) 25 mg DAILY PO 03/01/17 09:00 03/03/17 10:07 (NS Flush) UNSCH PRN IVF 03/01/17 10:15 Heparin Sodium (Porcine) UNSCH PRN IV FLUSH 03/01/17 10:15 (NS 1000 ml Inj) 1,000 ml @ 0 mls/hr Q0M PRN IV 03/01/17 11:39 Heparin Sodium (Porcine) 8000 units 8,000 units UNSCH PRN IVF 03/01/17 11:45 03/02/17 14:44 Sodium Chloride 1,000 ml @ 200 mls/hr Q5H PRN IV 03/01/17 11:39 (NS 1000 ml Inj) 1,000 ml @ 0 mls/hr Q0M PRN IV 03/01/17 11:39 (Mannitol Inj) 12.5 gm UNSCH PRN IV 03/01/17 11:45 (Albumin 25% Inj) 25 gm UNSCH PRN IV 03/01/17 11:45 (NS Flush) 5 ml UNSCH PRN IV FLUSH 03/01/17 11:45 (Heparin Inj) UNSCH PRN .XX 03/01/17 11:45 03/01/17 17:33 (Gentamicin (Dialysis) Inj) 20 mg UNSCH PRN IV 03/01/17 11:45 03/02/17 14:44 (Zofran Inj) 4 mg UNSCH PRN IV 03/01/17 11:45 (Tylenol) 650 mg UNSCH PRN PO 03/01/17 11:45 (Benadryl) 25 mg UNSCH PRN PO 03/01/17 11:45 (Nitrostat Sl) 0.4 mg UNSCH PRN SL 03/01/17 11:45 (Catapres) 0.1 mg UNSCH PRN PO 03/01/17 11:45 Gelatin 1 foam 1 foam UNSCH PRN TOP 03/01/17 11:45 (fentaNYL DRIP) 250 ml @ 0 mls/hr TITRATE IV 03/01/17 18:00 (Nephrocaps) 1 cap DAILY PO 03/03/17 09:00 03/03/17 09:00 (Levaquin) 250 mg Q48H PO 03/03/17 13:00 03/09/17 12:59 03/03/17 14:16 (Augmentin) 500 mg Q12HR PO 03/03/17 20:00 03/08/17 23:00 03/03/17 20:47 Assessment and Plan Problem List: (1) Respiratory failure, acute Status: Acute Plan: Room air now with good sats. (2) Gangrene Status: Acute Plan: Patient with florid wet gangrene of the right foot BKA on the above the knee amputation on the Dressing on (3) Sepsis Status: Acute Plan: ID consulted and managing. On antibiotics. WBC at 14.4 -wound C/S Proteus, Enterococcus and PSAE. Blood cx 02/22 Proteus and enterococcus -Antibiotics per ID (vancomycin and Zosyn and Levaquin. Diflucan added by ID 02/12 `7 -Follow-up cultures on the negative (4) Acute on chronic kidney disease, stage 4 Status: Acute Plan: Nephrology consulted and managing. Perma cath placement today MWF schedule (5) Hypertension Status: Acute Plan: Continue current regimen. B/P 100/59 will monitor. (6) Tobacco abuse Status: Acute Plan: smoking cessation needed (7) Diabetes Status: Acute Plan: BS better controlled with the addition of januvia. Will monitor (8) Atrial fibrillation Status: Acute Plan: Cardiology consulted. Rate controlled. INR 1.4 and getting perma cath placement (9) Elevated INR Status: Acute Plan: Hematology consulted and managing. Vitamin k daily. INR 2.4 today. (10) Anemia Status: Acute Plan: HGB stable at 8.7 Monitoring (11) Swelling of right upper extremity Status: Acute Plan: Most likely dependent edema. US with superficial thrombosis (12) Hypokalemia Status: Acute Plan: Potassium 3.3 will add one time dose with kidney failure Assessment and Plan Assessment and plan discussed with Dr. Bird Discussed Condition With Nursing Problem Qualifiers (1) Sepsis: Qualified Code: A41.9 - Sepsis, due to unspecified organism (2) Diabetes: Cherie Loyd Mar 04, 2017 09:28
[2017-03-04] MEDS ORDERED: POTASSIUM CHLORIDE 20 MEQ CONTROLLED RELEASE TAB PO ONE (10:00)
[2017-03-04] MEDS ORDERED: LIDOCAINE 1%/EPINEPHrine 1:100,000 SOLN 20 ML VIAL ONE (14:47)
[2017-03-04] MEDS ORDERED: fentaNYL CITRATE 250 MCG/5 ML AMP ONE (14:54)
[2017-03-04] MEDS ORDERED: MIDAZOLAM HCL 5 MG/5 ML VIAL ONE (14:54)
--- NOTE | 2017-03-04 14:57 | HHI.NPPN ---
Subjective History of Present Illness This patient is a 71-year-old male with a history of long-standing diabetes mellitus and hypertension as well as chronic kidney disease known to me from the office, approaching end-stage renal disease. 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 Patient did have an AV dialysis shunt placed in preparation for dialysis unfortunately access failed. Is on sodium bicarbonate chronically for metabolic acidosis. There has been concern regarding nutritional status recently. Interval History Patient seen postdialysis in radiology today. No verbal complaints. Patient forgot that we discussed PermCath placement yesterday. Again discussed need for conversion to PermCath from Vas-Cath in preparation for discharge. Patient agrees. Review of Systems General General Remarks Unable to obtain Objective Data Data 03/03/17 03/04/17 19:00 07:00 Intake Total 525 ml 38 ml Output Total 100 ml Balance 425 ml 38 ml Intake Oral 525 ml IV Total 38 ml Output Urine Total 100 ml # Bowel Movements 2 Vital Signs Date Time Temp Pulse Resp B/P Pulse Ox O2 Delivery O2 Flow Rate FiO2 03/04/17 08:00 95.6 76 18 134/71 97 03/04/17 04:03 97.5 74 18 118/74 98 03/04/17 00:00 74 03/04/17 00:00 98.2 72 18 108/59 100 03/03/17 22:00 82 03/03/17 20:22 98 Nasal Cannula 2.00 03/03/17 20:00 70 03/03/17 20:00 97.6 82 16 114/67 100 03/03/17 19:00 98 Nasal Cannula 2.00 03/03/17 18:00 76 03/03/17 16:00 76 03/03/17 16:00 97.9 76 18 127/74 96 -: 03/04/17 0600 03/04/17 0600 Tubes & Lines: Vas-Cath ([facility]) Physical Exam General Appearance: No Acute Distress Eyes Eye Exam: Sclera White Pulmonary Resp Exam: Clear Bilaterally, Breath Sounds Equal, No Distress Cardiology CV Exam: Regular, Normal Sinus Rhythm Gastrointestinal/Abdomen GI Exam: Soft, Non-Tender Integumentary Skin Exam: Clear, Warm Extremeties Extremities Exam: Moderate Edema (right upper extremity. None in LLE), Pitting Edema Assessment/Plan Discussed Condition With: Patient, Spouse Problem List: (1) CKD (chronic kidney disease) stage 4, GFR 15-29 ml/min Plan: Once PermCath has been place patient will be clear for discharge from a renal point The patient goes to [facility] outpatient dialysis will occur there. If patient does not go to [facility] I would like discharge delayed until Tuesday so that the dialysis unit can be notified prior to discharge and arrangements can be made for transportation. Continue on Tuesday schedule. Medications should be adjusted for the patient's ESRD. Avoid gadolinium (2) Metabolic acidosis Plan: Improve with dialysis. (3) Vitamin D deficiency Plan: Vitamin D as ordered. (4) Malnutrition Plan: Agree with nutritional supplementation and patient was encouraged to improve his dietary protein intake. (5) Diabetes Plan: Management per primary care physician. (6) Hypertension Problem Qualifiers (1) Diabetes: Jeremiah Hagan MD Mar 04, 2017 14:57
--- NOTE | 2017-03-04 15:18 | PD.RAD ---
Post Procedure Progress Note Pre Procedure Diagnosis: (1) Dialysis AV fistula malfunction (2) CKD (chronic kidney disease) stage 4, GFR 15-29 ml/min Post Procedure Diagnosis: (1) Dialysis AV fistula malfunction (2) CKD (chronic kidney disease) stage 4, GFR 15-29 ml/min Procedure Date: Mar 04, 2017 Supervising Radiologist: Maxime Ray Proceduralist/Assist: Maria A Palm, RT(R), Juan Alberto Carlson RT(R) Anesthesia: Local, Conscious Sedation Plan of Activity Patient to Unit: Nursing Unit Patient Condition: Fair See PACS Report for procedural detail/treatment Central Venous Access Device Procedure 1 Right Internal Jugular Hemodialysis Catheter Tunneled Placement dual lumen English: 15 Maxime Ray MD Mar 04, 2017 15:18
--- NOTE | 2017-03-04 15:24 | RADRPT ---
EXAM DATE/TIME: 03/04/2017 15:48 [place] COMPARISON: No previous studies available for comparison. INDICATIONS : Patient with a history of renal disease, needs dialysis. MEDICAL HISTORY : Diabetes AFIB PVD Tobaccoism Agent orange exposure Advanced stage chronic kidney failure Hyperlipedemia GERD HTN Hypothyroidism SURGICAL HISTORY : Tracheostomy Wound care on his right foot BKA right foot ENCOUNTER: Initial ACUITY: >1 year PAIN SCORE: 8/10 LOCATION: Right leg FLUORO TIME: 0.9 minutes IMAGE SERIES: 1 SEDATION TIME: 15 minutes ACCESS: Right internal jugular vein SEDATION: 1.) 2 mg midazolam (Versed) IV 2.) 100 mcg fentanyl (Sublimaze) IV Prophylactic antibiotics were administered with appropriate pre-procedure timing. Vancomycin within 2 hours of procedure, Ancef (or alternative) within 1 hour of procedure. DEVICE: 1. 15 Persian dual lumen 27 cm Wang II Plus catheter PROCEDURE : 1. Ultrasound-guided venipuncture. 2. PermaCath placement. 3. Conscious sedation with continuous EKG and oximetry monitoring. The risks, benefits and alternatives to the procedure were explained and verbal and written consent w as obtained. The site was prepped in sterile fashion. Full sterile technique was used, including ca p, mask, sterile gloves and gown and a large sterile sheet. Hand hygiene and 2% chlorhexidine and/or betadine/alcohol prep was utilized per protocol for cutaneous antisepsis. The skin and subcutaneous tissues were infiltrated with local anesthetic solution. With ultrasound and fluoroscopic guidance a dermatotomy was created over the prescribed vein. A micr opuncture set was used to access the targeted vein and serial dilatation was performed to accept the prescribed length catheter. A subcutaneous tunnel was created in a retrograde fashion the catheter w as pulled through the tunnel. The catheter was flushed and assembled and locked with heparin. The c atheter was sutured in place. Conscious sedation was performed with the prescribed dosages and duration as above in the presence of an independent trained radiology nurse to assist in the monitoring of the patient. EKG and oximetry remained stable throughout the procedure. The patient tolerated the procedure well and there were n o complications. The patient was sent to post anesthesia recovery in stable condition. CONCLUSION: Uncomplicated PermaCath placement as above. Maxime Ray MD on March 04, 2017 at 15:22 Board Certified Radiologist. This report was verified electronically.
--- NOTE | 2017-03-04 15:25 | RADRPT ---
EXAM DATE/TIME: 03/04/2017 00:00 [place] COMPARISON: No previous studies available for comparison. INDICATIONS : Patient with a history of renal disease, needs permcath for dialysis. MEDICAL HISTORY : ESRD SURGICAL HISTORY : BKA of right foot ENCOUNTER: Initial ACUITY: > 1 year PAIN SCORE: 8/10 LOCATION: Right foot IMAGE SERIES: ACCESS: Left internal jugular vein PROCEDURE : 1. Temporary central venous catheter removal. The prescribed catheter was removed intact and hemostasis was achieved with direct pressure. The sit e was dressed appropriately. The patient tolerated the procedure well. CONCLUSION: Uncomplicated catheter removal. Maxime Ray MD on March 04, 2017 at 15:23 Board Certified Radiologist. This report was verified electronically.
--- NOTE | 2017-03-04 15:33 | PD.ONC.PN ---
Subjective Subjective Remarks Afebrile overnight. (late entry, patient seen at 8AM this morning). Patient resting comfortably. No overnight events. Waiting to go down for perma-cath placement. Objective Data Result Diagram: 03/04/17 0600 03/04/17 0600 Objective Remarks GENERAL: Elderly male upright in bed SKIN: Warm and dry. HEAD: Normocephalic. EYES: No injection or drainage. NECK: Supple, trachea midline. CARDIOVASCULAR: +S1/S2 RESPIRATORY: Breath sounds equal bilaterally. No accessory muscle use. GASTROINTESTINAL: Abdomen soft, non-tender, nondistended. EXTREMITIES: No cyanosis. above the knee amputation, right leg. no bleeding. NEUROLOGICAL: awake and alert, moving extremities. Assessment/Plan Problem List: (1) Anemia Status: Acute Plan: -- Likely secondary to acute blood loss compounded by renal failure and chronic illness. --transfuse as needed to keep hgb>8 (2) Coagulopathy Status: Chronic Plan: --INR now subtherapeutic --Likely multifactorial secondary to vitamin K deficiency, consumption secondary to recent surgery, consumption secondary to recent sepsis and likely decreased hepatic synthetic function (as evidenced by decreased albumin levels). Assessment 71y/o male with supratherapeutic INR in a patient with sepsis secondary to gangrene. --history of atrial fibrillation --has been on Warfarin >10 years. 2.5 mg daily six days a week and 2 mg one day a week. This helped maintain his INR at about 2.5. --s/p right [id number] amputation on 02/23/2017. h/o Diabetes Peripheral vascular disease tobaccoism Agent orange exposure Advanced stage chronic kidney failure Hyperlipidemia Gastroesophageal reflux disease Hypertension Hypothyroidism Plan 1. INR subtherapeutic. ok to resume anticoagulation. will restart Coumadin at patient's home dose 2. monitor CBC, keep hgb>8 3. will consult pharmacy to manage Coumadin. 4. hematology will continue to follow peripherally. please call with questions. Charo Medellin Mar 04, 2017 15:33 White Blood Count 14.4 TH/MM3 Red Blood Count 3.04 MIL/MM3 Hemoglobin 8.7 GM/DL Hematocrit 27.2 % Mean Corpuscular Volume 89.5 FL Mean Corpuscular Hemoglobin 28.6 PG Mean Corpuscular Hemoglobin 32.0 % Concent Red Cell Distribution Width 15.8 % Platelet Count 249 TH/MM3 Mean Platelet Volume 9.2 FL Neutrophils (%) (Auto) 88.3 % Lymphocytes (%) (Auto) 3.4 % Monocytes (%) (Auto) 6.1 % Eosinophils (%) (Auto) 1.7 % Basophils (%) (Auto) 0.5 % Neutrophils # (Auto) 12.7 TH/MM3 Lymphocytes # (Auto) 0.5 TH/MM3 Monocytes # (Auto) 0.9 TH/MM3 Eosinophils # (Auto) 0.2 TH/MM3 Basophils # (Auto) 0.1 TH/MM3 CBC Comment DIFF FINAL Differential Comment Prothrombin Time 15.2 SEC Prothromb Time International 1.4 RATIO Ratio Sodium Level 137 MEQ/L Potassium Level 3.3 MEQ/L Chloride Level 99 MEQ/L Carbon Dioxide Level 30.7 MEQ/L Anion Gap 7 MEQ/L Blood Urea Nitrogen 32 MG/DL Creatinine 4.58 MG/DL Estimat Glomerular Filtration 13 ML/MIN Rate Random Glucose 100 MG/DL Calcium Level 8.1 MG/DL Administered Medications Medications (Trade) Dose Ordered Sig/[place] Route PRN Reason Start Time Stop Time Status Last Admin Dose Admin Sodium Chloride (NS Flush) 2 ml BID IV FLUSH 02/22/17 21:00 03/03/17 20:56 Acetaminophen/ Hydrocodone Bitart ([place] 10-325 Mg) 1 tab Q4H PRN PO PAIN SCALE 1 TO 7 02/22/17 18:15 03/02/17 12:05 Atenolol (Tenormin) 100 mg BID PO 02/22/17 21:00 03/03/17 20:48 Atorvastatin Calcium (Lipitor) 40 mg HS PO 02/22/17 21:00 03/03/17 20:48 Clonidine (Catapres) 0.1 mg BID PO 02/22/17 21:00 03/03/17 08:43 Diltiazem HCl (Cardizem Cd) 240 mg DAILY PO 02/23/17 09:00 03/03/17 08:43 Pantoprazole Sodium (Protonix) 40 mg DAILY PO 02/23/17 09:00 03/03/17 08:43 Levothyroxine Sodium (Synthroid) 100 mcg DAILY@06 PO 02/23/17 06:00 03/04/17 05:50 Levothyroxine Sodium (Synthroid) 75 mcg DAILY@06 PO 02/23/17 06:00 03/04/17 05:50 Heparin Sodium (Porcine) (Heparin Inj) 5,000 units Q12HR SQ 02/24/17 09:00 Hold 02/26/17 08:08 Cholecalciferol (Vitamin D3) 5,000 units DAILY PO 02/25/17 09:00 03/03/17 08:43 Loperamide HCl (Imodium) 2 mg Q6H PRN PO DIARRHEA 02/24/17 20:30 03/03/17 20:48 Furosemide (Lasix) 40 mg DAILY PO 02/25/17 09:00 03/03/17 08:43 Betamethasone/ Clotrimazole (Lotrisone Cream) 1 applic Q12HR TOPICAL 02/27/17 09:00 03/03/17 21:09 Phytonadione (Mephyton) 2.5 mg DAILY PO 03/01/17 09:00 Hold 03/03/17 08:43 Gabapentin (Neurontin) 100 mg TID PO 02/28/17 13:00 03/03/17 17:56 Sitagliptin Phosphate (Januvia) 25 mg DAILY PO 03/01/17 09:00 03/03/17 10:07 Heparin Sodium (Porcine) (Heparin Inj) 8,000 units UNSCH PRN IVF WITH DIALYSIS 03/01/17 11:45 03/02/17 14:44 Heparin Sodium (Porcine) (Heparin Inj) UNSCH PRN .XX WITH DIALYSIS 03/01/17 11:45 03/01/17 17:33 Gentamicin Sulfate (Gentamicin (Dialysis) Inj) 20 mg UNSCH PRN IV WITH DIALYSIS 03/01/17 11:45 03/02/17 14:44 Vitamin B Complex/ Vit C/Folic Acid (Nephrocaps) 1 cap DAILY PO 03/03/17 09:00 03/03/17 09:00 Levofloxacin (Levaquin) 250 mg Q48H PO 03/03/17 13:00 03/09/17 12:59 03/03/17 14:16 Amoxicillin/ Clavulanate Potassium (Augmentin) 500 mg Q12HR PO 03/03/17 20:00 03/08/17 23:00 03/03/17 20:47 Objective Remarks GENERAL: Elderly male upright in bed SKIN: Warm and dry. HEAD: Normocephalic. EYES: No injection or drainage. NECK: Supple, trachea midline. CARDIOVASCULAR: +S1/S2 RESPIRATORY: Breath sounds equal bilaterally. No accessory muscle use. GASTROINTESTINAL: Abdomen soft, non-tender, nondistended. EXTREMITIES: No cyanosis. above the knee amputation, right leg. no bleeding. NEUROLOGICAL: awake and alert, moving extremities. Assessment/Plan Problem List: (1) Anemia Status: Acute Plan: -- Likely secondary to acute blood loss compounded by renal failure and chronic illness. --transfuse as needed to keep hgb>8 (2) Coagulopathy Status: Chronic Plan: --INR now subtherapeutic --Likely multifactorial secondary to vitamin K deficiency, consumption secondary to recent surgery, consumption secondary to recent sepsis and likely decreased hepatic synthetic function (as evidenced by decreased albumin levels). Assessment 71y/o male with supratherapeutic INR in a patient with sepsis secondary to gangrene. --history of atrial fibrillation --has been on Warfarin >10 years. 2.5 mg daily six days a week and 2 mg one day a week. This helped maintain his INR at about 2.5. --s/p right [id number] amputation on 02/23/2017. h/o Diabetes Peripheral vascular disease tobaccoism Agent orange exposure Advanced stage chronic kidney failure Hyperlipidemia Gastroesophageal reflux disease Hypertension Hypothyroidism Plan 1. INR subtherapeutic. ok to resume anticoagulation. will restart Coumadin at patient's home dose 2. monitor CBC, keep hgb>8 3. consult pharmacy to manage Coumadin. 4. hematology will continue to follow peripherally. please call with questions. Charo Medellin Mar 04, 2017 15:33
[2017-03-04] MEDS ORDERED: WARFARIN SOD 2 MG TAB PO SCH (16:00)
--- NOTE | 2017-03-04 19:02 | HHI.PR ---
Subjective Remarks YOWM with COPD, Hypercapnoic RF, s/p Right AKA Extubated, On NC Alert, awake, denies sob No Fever C. diff positive Objective Vital Signs Vital Signs Date Time Temp Pulse Resp B/P Pulse Ox O2 Delivery O2 Flow Rate FiO2 03/04/17 17:06 95.2 86 18 144/71 98 03/04/17 16:29 70 18 164/92 97 03/04/17 16:05 67 18 159/84 94 03/04/17 15:50 79 18 149/86 95 03/04/17 12:56 96 Nasal Cannula 2.00 03/04/17 08:00 95.6 76 18 134/71 97 03/04/17 04:03 97.5 74 18 118/74 98 03/04/17 00:00 74 03/04/17 00:00 98.2 72 18 108/59 100 03/03/17 22:00 82 03/03/17 20:22 98 Nasal Cannula 2.00 03/03/17 20:00 70 03/03/17 20:00 97.6 82 16 114/67 100 I/O 03/03/17 03/03/17 03/03/17 03/04/17 03/04/17 03/04/17 07:00 15:00 23:00 07:00 15:00 23:00 Intake Total 89 ml 525 ml 38 ml Output Total 30 ml 100 ml 1600 ml Balance 59 ml 425 ml 38 ml -1600 ml Intake Oral 525 ml IV Total 89 ml 38 ml Output Urine Total 30 ml 100 ml 100 ml Hemodialysis 1500 ml # Bowel Movements 2 2 Result Diagram: 03/04/17 0603/04/17 0600 Objective Remarks GENERAL: MBMN WM, on Vent SKIN: Warm and dry. HEAD: Normocephalic. EYES: No scleral icterus. No injection or drainage. NECK: Supple, trachea midline. No JVD or lymphadenopathy. CARDIOVASCULAR: Regular rate and rhythm without murmurs, gallops, or rubs. RESPIRATORY: Breath sounds equal bilaterally. No accessory muscle use. GASTROINTESTINAL: Abdomen soft, non-tender, nondistended. MUSCULOSKELETAL: No cyanosis, or edema. Right AKA BACK: Nontender without obvious deformity. No CVA tenderness. A/P Assessment and Plan COPD AF DM S/P Right AKA PLAN: Aerosol nebs Cont Abx Monitor BS Stable on RA Available prn Ronny Sams MD Mar 04, 2017 19:02
[2017-03-04] MEDS: ATORVASTATIN 40 MG TAB PO SCH (20:35)
[2017-03-04] MEDS: ACETAMINOPHEN/HYDROcodone 325 MG/10 MG TAB PO PRN (20:37)
[2017-03-05] VITALS (7 sets, daily range): BP systolic 102–154; BP diastolic 65–85; PULSE 75–120; RESP 16–18; TEMP 95.3–98.2; O2SAT 97–100
[2017-03-05 05:22] LABS: AUTOMATED NEUTROPHIL # 9.8 TH/MM3 (1.8-7.7); BASOPHIL # 0.1 TH/MM3 (0-0.2); EOSINOPHIL # 0.2 TH/MM3 (0-0.4); EOSINOPHIL % 1.8 % (0.0-4.0); HEMATOCRIT 26.8 % (39.0-51.0); HEMO FLAGS DIFF FINAL; LYMPHOCYTE # 0.6 TH/MM3 (1.0-4.8); MEAN CELL VOLUME 88.8 FL (80.0-100.0); MEAN CORPUSCULAR HEMOGLOBIN 28.9 PG (27.0-34.0); MEAN CORPUSCULAR HGB CONC 32.5 % (32.0-36.0); MONO % 7.9 % (0.0-8.0); NEUT % 84.3 % (16.0-70.0); PLATELET COUNT 235 TH/MM3 (150-450); RED BLOOD COUNT 3.02 MIL/MM3 (4.50-5.90); RED CELL DISTRIBUTION WIDTH 15.8 % (11.6-17.2); WHITE BLOOD COUNT 11.6 TH/MM3 (4.0-11.0)
[2017-03-05 05:33] LABS: INTERNATIONAL NORMALIZED RATIO 1.3 RATIO; PROTHROMBIN TIME - PATIENT 14.7 SEC (9.8-11.6)
[2017-03-05] MEDS: LEVOTHYROXINE SODIUM 75 MCG TAB PO SCH (05:45)
[2017-03-05] MEDS: INSULIN NovoLIN REGULAR SUPPLEMENTAL SCALE SQ SCH ×4 (05:45→21:48)
[2017-03-05] MEDS: LEVOTHYROXINE SODIUM 100 MCG TAB PO SCH (05:45)
[2017-03-05 05:48] LABS: BICARBONATE 27.1 MEQ/L (21.0-32.0); POTASSIUM 3.3 MEQ/L (3.5-5.1)
--- NOTE | 2017-03-05 08:52 | PD.ONC.PN ---
Subjective Subjective Remarks Afebrile overnight. Pt resting in bed in no distress. He awakens easily to verbal stimuli. He denies SOB or pain. Objective Data Date Time Temp Pulse Resp B/P Pulse Ox O2 Delivery O2 Flow Rate FiO2 03/05/17 08:00 96.9 76 18 122/68 97 03/05/17 04:37 98.2 79 17 142/75 99 03/05/17 00:42 97.6 102 17 146/82 99 03/04/17 20:48 97.6 100 17 157/81 99 03/04/17 19:35 98 21 03/04/17 17:06 95.2 86 18 144/71 98 03/04/17 17:00 74 03/04/17 16:29 70 18 164/92 97 03/04/17 16:05 67 18 159/84 94 03/04/17 16:00 Nasal Cannula 2.00 03/04/17 15:50 79 18 149/86 95 03/04/17 12:56 96 Nasal Cannula 2.00 03/05/17 03/05/17 03/05/17 07:00 15:00 23:00 Intake Total 480 ml Output Total 225 ml Balance 255 ml Result Diagram: 03/05/17 0502 03/05/17 0502 Laboratory Results Laboratory Tests Test 03/05/17 05:02 White Blood Count 11.6 TH/MM3 Red Blood Count 3.02 MIL/MM3 Hemoglobin 8.7 GM/DL Hematocrit 26.8 % Mean Corpuscular Volume 88.8 FL Mean Corpuscular Hemoglobin 28.9 PG Mean Corpuscular Hemoglobin 32.5 % Concent Red Cell Distribution Width 15.8 % Platelet Count 235 TH/MM3 Mean Platelet Volume 9.2 FL Neutrophils (%) (Auto) 84.3 % Lymphocytes (%) (Auto) 5.0 % Monocytes (%) (Auto) 7.9 % Eosinophils (%) (Auto) 1.8 % Basophils (%) (Auto) 1.0 % Neutrophils # (Auto) 9.8 TH/MM3 Lymphocytes # (Auto) 0.6 TH/MM3 Monocytes # (Auto) 0.9 TH/MM3 Eosinophils # (Auto) 0.2 TH/MM3 Basophils # (Auto) 0.1 TH/MM3 CBC Comment DIFF FINAL Differential Comment Prothrombin Time 14.7 SEC Prothromb Time International 1.3 RATIO Ratio Sodium Level 137 MEQ/L Potassium Level 3.3 MEQ/L Chloride Level 98 MEQ/L Carbon Dioxide Level 27.1 MEQ/L Anion Gap 12 MEQ/L Blood Urea Nitrogen 20 MG/DL Creatinine 3.36 MG/DL Estimat Glomerular Filtration 18 ML/MIN Rate Random Glucose 116 MG/DL Calcium Level 7.8 MG/DL Administered Medications Medications (Trade) Dose Ordered Sig/[place] Route PRN Reason Start Time Stop Time Status Last Admin Dose Admin Sodium Chloride (NS Flush) 2 ml BID IV FLUSH 02/22/17 21:00 03/04/17 20:38 Acetaminophen/ Hydrocodone Bitart ([place] 10-325 Mg) 1 tab Q4H PRN PO PAIN SCALE 1 TO 7 02/22/17 18:15 03/04/17 20:37 Atenolol (Tenormin) 100 mg BID PO 02/22/17 21:00 03/04/17 20:37 Atorvastatin Calcium (Lipitor) 40 mg HS PO 02/22/17 21:00 03/04/17 20:35 Clonidine (Catapres) 0.1 mg BID PO 02/22/17 21:00 03/04/17 20:37 Diltiazem HCl (Cardizem Cd) 240 mg DAILY PO 02/23/17 09:00 03/03/17 08:43 Pantoprazole Sodium (Protonix) 40 mg DAILY PO 02/23/17 09:00 03/03/17 08:43 Levothyroxine Sodium (Synthroid) 100 mcg DAILY@06 PO 02/23/17 06:00 03/05/17 05:45 Levothyroxine Sodium (Synthroid) 75 mcg DAILY@06 PO 02/23/17 06:00 03/05/17 05:45 Cholecalciferol (Vitamin D3) 5,000 units DAILY PO 02/25/17 09:00 03/03/17 08:43 Loperamide HCl (Imodium) 2 mg Q6H PRN PO DIARRHEA 02/24/17 20:30 03/03/17 20:48 Furosemide (Lasix) 40 mg DAILY PO 02/25/17 09:00 03/03/17 08:43 Betamethasone/ Clotrimazole (Lotrisone Cream) 1 applic Q12HR TOPICAL 02/27/17 09:00 03/04/17 21:00 Phytonadione (Mephyton) 2.5 mg DAILY PO 03/01/17 09:00 Hold 03/03/17 08:43 Gabapentin (Neurontin) 100 mg TID PO 02/28/17 13:00 03/04/17 17:47 Sitagliptin Phosphate (Januvia) 25 mg DAILY PO 03/01/17 09:00 03/03/17 10:07 Heparin Sodium (Porcine) (Heparin Inj) 8,000 units UNSCH PRN IVF WITH DIALYSIS 03/01/17 11:45 03/02/17 14:44 Heparin Sodium (Porcine) (Heparin Inj) UNSCH PRN .XX WITH DIALYSIS 03/01/17 11:45 03/01/17 17:33 Gentamicin Sulfate (Gentamicin (Dialysis) Inj) 20 mg UNSCH PRN IV WITH DIALYSIS 03/01/17 11:45 03/02/17 14:44 Vitamin B Complex/ Vit C/Folic Acid (Nephrocaps) 1 cap DAILY PO 03/03/17 09:00 03/03/17 09:00 Levofloxacin (Levaquin) 250 mg Q48H PO 03/03/17 13:00 03/09/17 12:59 03/03/17 14:16 Amoxicillin/ Clavulanate Potassium (Augmentin) 500 mg Q12HR PO 03/03/17 20:00 03/08/17 23:00 03/04/17 20:35 Warfarin Sodium (Coumadin) 2 mg DAILY@16 PO 03/04/17 16:00 03/04/17 17:59 Objective Remarks GENERAL: Elderly male lying in bed in no distress. SKIN: Multiple scattered petechiae. HEAD: Normocephalic. EYES: No injection or drainage. NECK: Supple, trachea midline. CARDIOVASCULAR: +S1/S2. RESPIRATORY: Breath sounds equal bilaterally. No accessory muscle use. GASTROINTESTINAL: Abdomen soft, non-tender, nondistended. EXTREMITIES: R leg AKA with stitches intact. No bleeding. +Anasarca to BUE, weeping to LUE. NEUROLOGICAL: Awake and alert, moving extremities. Normal speech. Assessment/Plan Problem List: (1) Anemia Status: Acute Plan: -- Likely secondary to acute blood loss compounded by renal failure and chronic illness. --transfuse as needed to keep hgb>8 (2) Coagulopathy Status: Chronic Plan: --INR now subtherapeutic --Likely multifactorial secondary to vitamin K deficiency, consumption secondary to recent surgery, consumption secondary to recent sepsis and likely decreased hepatic synthetic function (as evidenced by decreased albumin levels). Assessment 71y/o male with supratherapeutic INR in a patient with sepsis secondary to gangrene. --history of atrial fibrillation --has been on Warfarin >10 years. 2.5 mg daily six days a week and 2 mg one day a week. This helped maintain his INR at about 2.5. --s/p right [id number] amputation on 02/23/2017. h/o Diabetes Peripheral vascular disease tobaccoism Agent orange exposure Advanced stage chronic kidney failure Hyperlipidemia Gastroesophageal reflux disease Hypertension Hypothyroidism Plan 1. Coumadin restarted yesterday at 2mg po daily. Heparin 5000Units SQ q12hrs has been started for prophylaxis. 2. Pharmacy consulted to manage coumadin dosing 3. Will transfuse to keep Hgb > 8. 4. Monitor CBC, PT/INR. Karin Huang Mar 05, 2017 08:52 Michael Martinez MD Mar 05, 2017 17:44
[2017-03-05] MEDS: VITAMIN B CMPLX/VITC/FOLIC AC CAP PO SCH (09:25)
[2017-03-05] MEDS: cloNIDine HCL 0.1 MG TAB PO SCH ×2 (09:25→21:47)
[2017-03-05] MEDS: AMOXICILLIN/CLAVULANATE K 500 MG TAB PO SCH ×2 (09:25→21:47)
[2017-03-05] MEDS: FUROSEMIDE 40 MG TAB PO SCH (09:26)
[2017-03-05] MEDS: GABAPENTIN 100 MG CAP PO SCH ×3 (09:26→17:01)
[2017-03-05] MEDS: DILTIAZEM-CD 240 MG CAP ER PO SCH (09:26)
[2017-03-05] MEDS: PANTOPRAZOLE SOD 40 MG DELAYED RELEASE TAB PO SCH (09:26)
[2017-03-05] MEDS: ATENOLOL 100 MG TAB PO SCH ×2 (09:26→21:47)
[2017-03-05] MEDS: CHOLECALCIFEROL (VIT D3) 5000 UNIT CAP PO SCH (09:26)
[2017-03-05] MEDS: SODIUM CHLORIDE 0.9% FLUSH 10 ML FLUSH IV FLUSH SCH ×2 (09:26→21:47)
[2017-03-05] MEDS: BETAMETHASONE/CLOTRIMAZOLE CREAM 15 GM TOPICAL SCH ×2 (09:27→21:48)
[2017-03-05] MEDS: LEVOFLOXACIN 250 MG TAB PO SCH (13:02)
[2017-03-05] MEDS ORDERED: WARFARIN SOD 2.5 MG TAB PO SCH (16:00)
[2017-03-05] MEDS: HEPARIN SODIUM - SQ 10,000 UNITS/ML VIAL SQ SCH (17:01)
[2017-03-05] MEDS: ATORVASTATIN 40 MG TAB PO SCH (21:47)
[2017-03-06] VITALS (8 sets, daily range): BP systolic 118–170; BP diastolic 71–88; PULSE 60–82; RESP 16–20; TEMP 95.2–97.1; O2SAT 93–100
[2017-03-06] MEDS: LEVOTHYROXINE SODIUM 75 MCG TAB PO SCH (06:19)
[2017-03-06] MEDS: LEVOTHYROXINE SODIUM 100 MCG TAB PO SCH (06:19)
[2017-03-06] MEDS: HEPARIN SODIUM - SQ 10,000 UNITS/ML VIAL SQ SCH ×2 (06:20→16:58)
[2017-03-06] MEDS: INSULIN NovoLIN REGULAR SUPPLEMENTAL SCALE SQ SCH ×4 (06:21→21:16)
[2017-03-06 07:53] LABS: AUTOMATED NEUTROPHIL # 9.2 TH/MM3 (1.8-7.7); BASOPHIL # 0.1 TH/MM3 (0-0.2); BASOPHIL % 0.9 % (0.0-2.0); EOSINOPHIL # 0.2 TH/MM3 (0-0.4); EOSINOPHIL % 2.2 % (0.0-4.0); HEMATOCRIT 28.4 % (39.0-51.0); LYMPH % 5.5 % (9.0-44.0); LYMPHOCYTE # 0.6 TH/MM3 (1.0-4.8); MEAN CELL VOLUME 89.4 FL (80.0-100.0); MEAN CORPUSCULAR HEMOGLOBIN 29.8 PG (27.0-34.0); MEAN CORPUSCULAR HGB CONC 33.3 % (32.0-36.0); MONO % 8.6 % (0.0-8.0); NEUT % 82.8 % (16.0-70.0); PLATELET COUNT 218 TH/MM3 (150-450); RED BLOOD COUNT 3.18 MIL/MM3 (4.50-5.90); RED CELL DISTRIBUTION WIDTH 15.7 % (11.6-17.2); WHITE BLOOD COUNT 11.1 TH/MM3 (4.0-11.0)
[2017-03-06 07:55] LABS: HEMO FLAGS AUTO DIFF; INTERNATIONAL NORMALIZED RATIO 1.3 RATIO; PROTHROMBIN TIME - PATIENT 14.6 SEC (9.8-11.6)
[2017-03-06 08:01] LABS: BICARBONATE 26.7 MEQ/L (21.0-32.0); POTASSIUM 3.6 MEQ/L (3.5-5.1)
[2017-03-06] MEDS: AMOXICILLIN/CLAVULANATE K 500 MG TAB PO SCH ×2 (09:28→21:16)
[2017-03-06] MEDS: SODIUM CHLORIDE 0.9% FLUSH 10 ML FLUSH IV FLUSH SCH ×2 (09:28→21:16)
[2017-03-06] MEDS: VITAMIN B CMPLX/VITC/FOLIC AC CAP PO SCH (09:29)
[2017-03-06] MEDS: FUROSEMIDE 40 MG TAB PO SCH (09:29)
[2017-03-06] MEDS: ATENOLOL 100 MG TAB PO SCH ×2 (09:29→21:16)
[2017-03-06] MEDS: DILTIAZEM-CD 240 MG CAP ER PO SCH (09:29)
[2017-03-06] MEDS: PANTOPRAZOLE SOD 40 MG DELAYED RELEASE TAB PO SCH (09:29)
[2017-03-06] MEDS: CHOLECALCIFEROL (VIT D3) 5000 UNIT CAP PO SCH (09:29)
[2017-03-06] MEDS: cloNIDine HCL 0.1 MG TAB PO SCH ×2 (09:29→21:16)
[2017-03-06] MEDS: GABAPENTIN 100 MG CAP PO SCH ×3 (09:29→16:58)
[2017-03-06] MEDS: BETAMETHASONE/CLOTRIMAZOLE CREAM 15 GM TOPICAL SCH ×2 (09:30→21:23)
[2017-03-06 10:05] LABS: SCAN/DIFF AUTO DIFF CONFIRMED
--- NOTE | 2017-03-06 10:22 | HHI.PR ---
Subjective Remarks resting quietly s/p aka doing well will attemopt transfer to [facility] rehab Objective Vital Signs Date Time Temp Pulse Resp B/P Pulse Ox O2 Delivery O2 Flow Rate FiO2 03/06/17 08:00 97.1 71 16 136/74 96 03/06/17 04:00 96.0 80 20 145/88 98 03/06/17 00:00 95.2 72 18 121/71 100 03/05/17 21:00 93 03/05/17 20:45 100 Nasal Cannula 2.00 03/05/17 20:30 Nasal Cannula 2.00 03/05/17 20:00 95.3 75 18 102/65 98 03/05/17 16:00 96.9 120 18 148/80 98 03/05/17 12:00 97.1 78 16 154/85 100 I/O 03/05/17 03/05/17 03/05/17 03/06/17 03/06/17 03/06/17 07:00 15:00 23:00 07:00 15:00 23:00 Intake Total 480 ml 720 ml Output Total 225 ml 600 ml 300 ml Balance 255 ml 120 ml -300 ml Intake Oral 480 ml 720 ml Output Urine Total 225 ml 600 ml 300 ml # Bowel Movements 1 Result Diagram: 03/06/1761203/06/17612 Procedures 02/23 BKA of right leg 02/25 AKA r leg Objective Remarks CONSTITUTIONAL/GENERAL: This is an adequately nourished patient, in no apparent distress. TUBES/LINES/DRAINS: SKIN: No jaundice, rashes, or lesions. Ecchymoses on upper extremities. No wounds seen anteriorly. Skin temperature appropriate. Not diaphoretic. HEAD: Atraumatic. Normocephalic. EYES: Pupils equal and round and reactive. Extraocular motions intact. No scleral icterus. No injection or drainage. Fundi not examined. ENT: Hearing grossly normal. Nose without bleeding or purulent drainage. Throat without visible erythema, exudates, masses, or lesions. NECK: Trachea midline. Supple, nontender. No palpable thyroid enlargement or nodularity. CARDIOVASCULAR: Regular rate and rhythm without murmurs, gallops, or rubs. No JVD. Peripheral pulses symmetric. RESPIRATORY/CHEST: Symmetric, unlabored respirations. Clear to auscultation. Breath sounds equal bilaterally. No wheezes, rales, or rhonchi. GASTROINTESTINAL: Abdomen soft, non-tender, nondistended. No hepato-splenomegaly , or palpable masses. No guarding. Bowel sounds present. GENITOURINARY: Without palpable bladder distension. Aguilar catheter in place. MUSCULOSKELETAL: Extremities without clubbing, cyanosis, or edema. No joint tenderness or effusion noted. No calf tenderness. No mottling or clubbing recent RAKA BANDAGED. LYMPHATICS: No palpable cervical or supraclavicular adenopathy. NEUROLOGICAL: Awake and alert. Motor and sensory grossly within normal limits. Follows commands. Cognitively sharp. Moves all extremities. PSYCHIATRIC: No obvious anxiety/depression. no apparent hallucinations or other psychotic thought process. Medications and IVs Inpatient Medications Acetaminophen (Tylenol) 650 mg UNSCH PRN PO for headach, pain, temp > 101F; Start 03/01/17 at 11:45 Acetaminophen/ Hydrocodone Bitart ([place] 10-325 Mg) 1 tab Q4H PRN PO PAIN SCALE 1 TO 7 Last administered on 03/04/17 20:37; Start 02/22/17 at 18:15 Albumin Human (Albumin 25% Inj) 25 gm UNSCH PRN IV WITH DIALYSIS; Start at 11:45 Albuterol/ Ipratropium 1 ampule 1 ampule QID NEB NEB Last administered on 03/04 19:35; Start 02/28/17 at 20:00; Stop 03/04/17 at 20:00; Status DC Alteplase, Recombinant 2 mg 2 mg ONCE ONCE IV Last administered on 03/01/17 15:48; Start 03/01/17 at 12:45; Stop 03/01/17 at 12:46; Status DC Amoxicillin/ Clavulanate Potassium 500 mg 500 mg Q12HR PO Last administered on 03/06/17 09:28; Start 03/03/17 at 20:00; Stop 03/08/17 at 23:00 Atenolol (Tenormin) 100 mg BID PO Last administered on 03/06/17 09:29; Start 02/22/17 at 21:00 Atorvastatin Calcium (Lipitor) 40 mg HS PO Last administered on 03/05/17 21:47 ; Start 02/22/17 at 21:00 Betamethasone/ Clotrimazole (Lotrisone Cream) 1 applic Q12HR TOPICAL Last administered on 03/06/17 09:30; Start 02/27/17 at 09:00 Cefazolin Sodium/ Dextrose (Ancef 2 Gm Premix) 50 ml @ 100 mls/hr [employer] IV Last administered on 03/04/17 14:08; Start 03/03/17 at 17:15; Stop 03/07/17 at 17:14 Chlorhexidine Gluconate 3 pack 3 pack [employer] PRN TOPICAL SEE LABEL COMMENTS; Start 02/23/17 at 11:00; Stop 02/26/17 at 11:55; Status DC Cholecalciferol (Vitamin D3) 5,000 units DAILY PO Last administered on 09:29; Start 02/25/17 at 09:00 Clonidine (Catapres) 0.1 mg UNSCH PRN PO for BP > 180/100 X 2 readings; Start 03/01/17 at 11:45 Dextrose (D50w (Vial) Inj) 25 ml UNSCH PRN IV PUSH HYPOGLYCEMIA-SEE COMMENTS; Start 02/24/17 at 11:45 Diltiazem HCl (Cardizem Cd) 240 mg DAILY PO Last administered on 03/06/17 09: 29; Start 02/23/17 at 09:00 Diltiazem HCl (Cardizem) 60 mg ONCE ONCE PO Last administered on 03/02/17 07: 59; Start 03/02/17 at 08:00; Stop 03/02/17 at 08:01; Status DC Diphenhydramine HCl (Benadryl) 25 mg UNSCH PRN PO for hives/itching/anaphylaxis ; Start 03/01/17 at 11:45 Fentanyl Citrate (fentaNYL DRIP) 250 ml @ 0 mls/hr TITRATE IV ; Start 03/01/17 at 18:00 Fluconazole/ Sodium Chloride 100 ml @ 100 mls/hr Q24H IV Last administered on 03/01/17 21:43; Start 02/28/17 at 22:00; Stop 03/02/17 at 10:19; Status DC Fluconazole/ Sodium Chloride (Diflucan 400 Mg Premix Bag) 200 ml @ 100 mls/hr Q24H IV ; Start 02/28/17 at 15:00; Stop 02/28/17 at 18:36; Status DC Furosemide (Lasix Inj) 20 mg UNSCH X1 PRN IV PUSH BETWEEN UNITS OF BLOOD Last administered on 02/28/17 17:34; Start 02/28/17 at 09:15; Stop 02/28/17 at 23:59 ; Status DC Furosemide (Lasix) 40 mg DAILY PO Last administered on 03/06/17 09:29; Start 02/25/17 at 09:00 Gabapentin (Neurontin) 100 mg TID PO Last administered on 03/06/17 09:29; Start 02/28/17 at 13:00 Gelatin (Gelfoam 12 Mm/7 Mm Top) 1 foam UNSCH PRN TOP SEE LABEL COMMENTS; Start 03/01/17 at 11:45 Gentamicin Sulfate (Gentamicin (Dialysis) Inj) 20 mg UNSCH PRN IV WITH DIALYSIS Last administered on 03/02/17 14:44; Start 03/01/17 at 11:45 Glipizide (Glucotrol) 5 mg DAILYAC PO Last administered on 02/23/17 08:28; Start 02/23/17 at 08:00; Stop 02/23/17 at 12:07; Status DC Glucagon (Glucagon Inj) 1 mg UNSCH PRN OTHER HYPOGLYCEMIA-SEE COMMENTS; Start 02/24/17 at 11:45 Heparin Sodium (Porcine) (Heparin Inj) 5,000 units Q12H SQ Last administered on 03/06/17 06:20; Start 03/05/17 at 18:00 Heparin Sodium (Porcine) 5000 units 5,000 units Q12HR SQ Last administered on 08:08; Start 02/24/17 at 09:00; Stop 03/04/17 at 15:33; Status DC Heparin Sodium (Porcine) 8000 units 8,000 units UNSCH PRN IVF WITH DIALYSIS Last administered on 03/02/17 14:44; Start 03/01/17 at 11:45 Insulin Human Regular (NovoLIN R SUPPLEMENTAL SCALE) 1 ACHS SLIDING SCALE SQ Last administered on 03/06/17 06:21; Start 02/24/17 at 16:00 Insulin Human Regular 7 units 7 units NOW ONCE SQ Last administered on 13:01; Start 02/24/17 at 13:00; Stop 02/24/17 at 13:01; Status DC Lactated Ringer's 1,000 ml @ 30 mls/hr Q24H PRN IV SEE LABEL COMMENTS; Start at 11:00; Stop 02/26/17 at 11:54; Status DC Levofloxacin (Levaquin) 250 mg Q48H PO Last administered on 03/05/17 13:02; Start 03/03/17 at 13:00; Stop 03/09/17 at 12:59 Levofloxacin/ Dextrose 50 ml @ 100 mls/hr Q48H IV Last administered on 17:59; Start 03/01/17 at 18:00; Stop 03/03/17 at 11:58; Status DC Levofloxacin/ Dextrose (Levaquin 250 Mg Premix Inj) 50 ml @ 100 mls/hr Q24H IV Last administered on 02/27/17 16:28; Start 02/24/17 at 18:00; Stop 02/28/17 at 12:01; Status DC Levothyroxine Sodium (Synthroid) 75 mcg DAILY@06 PO Last administered on 06:19; Start 02/23/17 at 06:00 Loperamide HCl (Imodium) 2 mg Q6H PRN PO DIARRHEA Last administered on 20:48; Start 02/24/17 at 20:30 Mannitol (Mannitol Inj) 12.5 gm UNSCH PRN IV WITH DIALYSIS; Start 03/01/17 at 11:45 Metoprolol Tartrate (Lopressor) 25 mg [employer] PRN PO SEE LABEL COMMENTS; Start 02/23/17 at 11:00; Stop 02/26/17 at 11:55; Status DC Midazolam HCl (Versed Inj) 100 ml @ 0 mls/hr TITRATE IV Last administered on 22:31; Start 02/28/17 at 22:15; Stop 03/01/17 at 07:38; Status DC Miscellaneous 1 ea 1 ea UNSCH PRN OTHER SEE LABEL COMMENTS; Start 02/28/17 at 12:00 Naloxone HCl (Narcan Inj) 0.4 mg UNSCH PRN IV SEE LABEL COMMENTS; Start at 18:15 Nitroglycerin (Nitrostat Sl) 0.4 mg UNSCH PRN SL CHEST PAIN; Start 03/01/17 at 11:45 Ondansetron HCl (Zofran Inj) 4 mg UNSCH PRN IV WITH DIALYSIS; Start 03/01/17 at 11:45 Pantoprazole Sodium (Protonix) 40 mg DAILY PO Last administered on 03/06/17 09 :29; Start 02/23/17 at 09:00 Patient Medication Teaching (Coumadin Booklet) 1 ONCE ONCE .XX Last administered on 03/04/17 17:46; Start 03/04/17 at 15:45; Stop 03/04/17 at 15:46 ; Status DC Pharmacy Profile Note (Coumadin Consult Pharmacy) 0 ml @ 0 mls/hr UNSCH OTHER ; Start 03/04/17 at 15:30 Phytonadione (Mephyton) 2.5 mg ONCE ONCE PO Last administered on 02/28/17 14: 53; Start 02/28/17 at 12:00; Stop 02/28/17 at 12:01; Status DC Phytonadione 5 mg 5 mg ONCE STAT PO Last administered on 02/23/17 08:28; Start 02/23/17 at 07:22; Stop 02/23/17 at 07:25; Status DC Piperacillin Sod/ Tazobactam Sod 50 ml @ 100 mls/hr Q8H IV Last administered on 03/03/17 06:58; Start 02/28/17 at 23:00; Stop 03/03/17 at 11:59; Status DC Piperacillin Sod/ Tazobactam Sod (Zosyn 4.5 Gm Premix) 100 ml @ 200 mls/hr ONCE STAT IV Last administered on 02/22/17 17:55; Start 02/22/17 at 16:24; Stop 02/22/17 at 16:53; Status DC Potassium Chloride 20 meq 20 meq ONCE ONCE PO ; Start 03/04/17 at 10:00; Stop 03/04/17 at 10:01; Status DC Povidone Iodine (Betadine 5% Antisepsis Kit) 1 applic [employer] PRN EACH NARE SEE LABEL COMMENTS; Start 02/23/17 at 11:00; Stop 02/26/17 at 11:55; Status DC Sitagliptin Phosphate (Januvia) 25 mg DAILY PO Last administered on 03/06/17 09:29; Start 03/01/17 at 09:00 Sodium Bicarbonate (Sodium Bicarbonate) 650 mg TIDPC PO Last administered on 16:39; Start 02/22/17 at 18:30; Stop 03/02/17 at 16:54; Status DC Sodium Chloride (NS 1000 ml Inj) 1,000 ml @ 0 mls/hr Q0M PRN IV WITH DIALYSIS; Start 03/01/17 at 11:39 Sodium Chloride (NS 250 ml Inj) 250 ml @ 15 mls/hr ONCE ONCE IV Last administered on 02/24/17 08:46; Start 02/24/17 at 07:45; Stop 02/25/17 at 00:24 ; Status DC Sodium Chloride (NS 500 ml Inj) 500 ml @ 30 mls/hr [id number] PRN IV SEE LABEL COMMENTS; Start 02/23/17 at 11:00; Stop 02/26/17 at 11:54; Status DC Sodium Chloride (NS Flush) 5 ml UNSCH PRN IV FLUSH WITH DIALYSIS; Start at 11:45 Vancomycin HCl 1000 mg/Sodium Chloride 250 ml @ 250 mls/hr [employer] IV Last administered on 03/04/17 14:07; Start 03/03/17 at 17:15; Stop 03/07/17 at 17:14 Vancomycin HCl/ Sodium Chloride (Vancomycin Inj/ NS 250 ml Inj) 250 ml @ 250 mls/hr ONCE ONCE IV Last administered on 02/24/17 17:02; Start 02/24/17 at 15 :00; Stop 02/24/17 at 15:59; Status DC Vitamin B Complex/ Vit C/Folic Acid (Nephrocaps) 1 cap DAILY PO Last administered on 03/06/17 09:29; Start 03/03/17 at 09:00 Warfarin Sodium (Coumadin) 2.5 mg DAILY@1600 PO Last administered on 03/05/17 16:15; Start 03/05/17 at 16:00 Assessment and Plan Problem List: (1) Unilateral AKA Status: Acute (2) Elevated INR Status: Acute Plan: reconsult heme onc re coagulopathy (3) Anemia Status: Acute Plan: transfuse two units prbc Assessment and Plan recent r aka having phantom pain improved with neurontin rash back add lotrisone Discharge Planning to [facility] rehab Problem Qualifiers (1) Unilateral AKA: Qualified Code: Z89.611 - Unilateral right Pelon RODRIGUEZ Gerald R. DO Mar 06, 2017 10:22
--- NOTE | 2017-03-06 13:51 | PD.CAR.PN ---
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 Thanks J 02/23/17 Appreciate 's evaluation and second opinion. Completely agree. Will take patient to OR for staged surgeries. BKA today, followed by AKA Tuesday or Tuesday. PT/INR consistent with coagulopathy and sepsis superimposed on Coumadintherapy Receiving FFP now Will give K centra if needed after FFP transfused. PT/INR at noon 02/24/17 Patient post staged R leg BK amputation for gangrene uf the foot and sepsis. Patient improved greatly since yesterday. For second stage surgery (R AKA) tomorrow. Agree with transfusion and will check PT/INR in am 02/26/2017 Status post right staged amputation and BKA followed by MICHAEL Dressing intact Patient resting comfortably We will leave original dressing on until Tuesday and then change it Patient has some phantom pain today and may need some Neurontin or equivalent 02/28/17 R AKA stump dry, incision clean Change dressing daily Stiches will remain in place for 3 weeks total Patient can be transferred to rehab/SNF from my point any time 03/01/17 Patient end up in the ICU throughout the night due to congestive failure and respiratory insufficiency but this is not improved Right AKA stump is clean and dry and healing nicely Nothing to add to care from surgical vascular point 03/02/17 Right AKA stump is clean and dry well-perfused Nothing to add to care Stitches will stay in about total of 3 weeks 03/06/17 Stump clean and dry Nothing to add to care Awaiting transfer to rehabilitation Objective: Vital Signs Date Time Temp Pulse Resp B/P Pulse Ox O2 Delivery O2 Flow Rate FiO2 03/06/17 12:00 97.1 74 18 170/85 95 03/06/17 11:11 68 03/06/17 08:30 Nasal Cannula 2.00 03/06/17 08:00 97.1 71 16 136/74 96 03/06/17 04:00 96.0 80 20 145/88 98 03/06/17 00:00 95.2 72 18 121/71 100 03/05/17 21:00 93 03/05/17 20:45 100 Nasal Cannula 2.00 03/05/17 20:30 Nasal Cannula 2.00 03/05/17 20:00 95.3 75 18 102/65 98 03/05/17 16:00 96.9 120 18 148/80 98 Labs: Laboratory Tests Test 03/06/17 06:13 White Blood Count 11.1 TH/MM3 (4.0-11.0) Red Blood Count 3.18 MIL/MM3 (4.50-5.90) Hemoglobin 9.5 GM/DL (13.0-17.0) Hematocrit 28.4 % (39.0-51.0) Mean Corpuscular Volume 89.4 FL (80.0-100.0) Mean Corpuscular Hemoglobin 29.8 PG (27.0-34.0) Mean Corpuscular Hemoglobin 33.3 % Concent (32.0-36.0) Red Cell Distribution Width 15.7 % (11.6-17.2) Platelet Count 218 TH/MM3 (150-450) Mean Platelet Volume 9.1 FL (7.0-11.0) Neutrophils (%) (Auto) 82.8 % (16.0-70.0) Lymphocytes (%) (Auto) 5.5 % (9.0-44.0) Monocytes (%) (Auto) 8.6 % (0.0-8.0) Eosinophils (%) (Auto) 2.2 % (0.0-4.0) Basophils (%) (Auto) 0.9 % (0.0-2.0) Neutrophils # (Auto) 9.2 TH/MM3 (1.8-7.7) Lymphocytes # (Auto) 0.6 TH/MM3 (1.0-4.8) Monocytes # (Auto) 1.0 TH/MM3 (0-0.9) Eosinophils # (Auto) 0.2 TH/MM3 (0-0.4) Basophils # (Auto) 0.1 TH/MM3 (0-0.2) CBC Comment AUTO DIFF Differential Comment AUTO DIFF CONFIRMED Prothrombin Time 14.6 SEC (9.8-11.6) Prothromb Time International 1.3 RATIO Ratio Sodium Level 136 MEQ/L (136-145) Potassium Level 3.6 MEQ/L (3.5-5.1) Chloride Level 100 MEQ/L (98-107) Carbon Dioxide Level 26.7 MEQ/L (21.0-32.0) Anion Gap 9 MEQ/L (5-15) Blood Urea Nitrogen 25 MG/DL (7-18) Creatinine 4.07 MG/DL (0.60-1.30) Estimat Glomerular Filtration 15 ML/MIN (>89) Rate Random Glucose 151 MG/DL (74-106) Calcium Level 8.0 MG/DL (8.5-10.1) Result Diagram: 03/06/1761203/06/17612 (1) PVD (peripheral vascular disease) (2) Unilateral AKA (3) Atrial fibrillation (4) Coagulopathy (5) Acute renal failure superimposed on stage 4 chronic kidney disease (6) Diabetes (7) Hypertension Problem Qualifiers (1) Unilateral AKA: Qualified Code: Z89.611 - Unilateral AKA, right (2) Diabetes: Jeovany Ernst MD Mar 06, 2017 13:51
[2017-03-06] MEDS: LOPERAMIDE HCL 2 MG CAP PO PRN (16:58)
[2017-03-06] MEDS: WARFARIN SOD 3 MG TAB PO SCH (16:58)
--- NOTE | 2017-03-06 17:19 | HHI.NPPN ---
Subjective History of Present Illness This patient is a 71-year-old male with a history of long-standing diabetes mellitus and hypertension as well as chronic kidney disease known to me from the office, approaching end-stage renal disease. 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 Patient did have an AV dialysis shunt placed in preparation for dialysis unfortunately access failed. Is on sodium bicarbonate chronically for metabolic acidosis. There has been concern regarding nutritional status recently. Interval History Patient resting comfortably. Appetite is improved by history. by bedside. Review of Systems General General Remarks No verbal complaints. Objective Data Data 03/05/17 03/06/17 19:00 07:00 Intake Total 720 ml Output Total 600 ml 300 ml Balance 120 ml -300 ml Intake Oral 720 ml Output Urine Total 600 ml 300 ml Vital Signs Date Time Temp Pulse Resp B/P Pulse Ox O2 Delivery O2 Flow Rate FiO2 03/06/17 16:00 97.1 60 18 118/72 95 03/06/17 12:00 97.1 74 18 170/85 95 03/06/17 11:11 68 03/06/17 08:30 Nasal Cannula 2.00 03/06/17 08:00 97.1 71 16 136/74 96 03/06/17 04:00 96.0 80 20 145/88 98 03/06/17 00:00 95.2 72 18 121/71 100 03/05/17 21:00 93 03/05/17 20:45 100 Nasal Cannula 2.00 03/05/17 20:30 Nasal Cannula 2.00 03/05/17 20:00 95.3 75 18 102/65 98 -: 03/06/17 0613 03/06/17 0613 Tubes & Lines: Vas-Cath (LIJ) Medication Review Current Medications Vancomycin HCl 1000 mg/Sodium Chloride 250 ml @ 250 mls/hr ONCE STAT IV Last administered on 02/22/17 18:39; Start 02/22/17 at 16:24; Stop 02/22/17 at 17:23 ; Status DC Piperacillin Sod/ Tazobactam Sod (Zosyn 4.5 Gm Premix) 100 ml @ 200 mls/hr ONCE STAT IV Last administered on 02/22/17 17:55; Start 02/22/17 at 16:24; Stop 02/22/17 at 16:53; Status DC Sodium Chloride (NS Flush) 2 ml UNSCH PRN IV FLUSH FLUSH AFTER USING IV ACCESS ; Start 02/22/17 at 18:15 Sodium Chloride (NS Flush) 2 ml BID IV FLUSH Last administered on 03/06/17 09: 28; Start 02/22/17 at 21:00 Ondansetron HCl (Zofran Inj) 4 mg Q6H PRN IVP NAUSEA OR VOMITING; Start at 18:15 Naloxone HCl (Narcan Inj) 0.4 mg UNSCH PRN IV SEE LABEL COMMENTS; Start at 18:15 Acetaminophen/ Hydrocodone Bitart ([place] 10-325 Mg) 1 tab Q4H PRN PO PAIN SCALE 1 TO 7 Last administered on 03/04/17 20:37; Start 02/22/17 at 18:15 Atenolol (Tenormin) 100 mg BID PO Last administered on 03/06/17 09:29; Start 02/22/17 at 21:00 Atorvastatin Calcium (Lipitor) 40 mg HS PO Last administered on 03/05/17 21:47 ; Start 02/22/17 at 21:00 Clonidine (Catapres) 0.1 mg BID PO Last administered on 03/06/17 09:29; Start 02/22/17 at 21:00 Diltiazem HCl (Cardizem Cd) 240 mg DAILY PO Last administered on 03/06/17 09: 29; Start 02/23/17 at 09:00 Furosemide (Lasix) 40 mg DAILY PO Last administered on 02/23/17 08:28; Start 02/23/17 at 09:00; Stop 02/23/17 at 12:07; Status DC Glipizide (Glucotrol) 5 mg DAILYAC PO Last administered on 02/23/17 08:28; Start 02/23/17 at 08:00; Stop 02/23/17 at 12:07; Status DC Sitagliptin Phosphate (Januvia) 50 mg DAILY PO Last administered on 02/28/17 08:33; Start 02/23/17 at 09:00; Stop 02/28/17 at 11:49; Status DC Sodium Bicarbonate (Sodium Bicarbonate) 650 mg TIDPC PO Last administered on 16:39; Start 02/22/17 at 18:30; Stop 03/02/17 at 16:54; Status DC Pantoprazole Sodium (Protonix) 40 mg DAILY PO Last administered on 03/06/17 09 :29; Start 02/23/17 at 09:00 Levothyroxine Sodium (Synthroid) 100 mcg DAILY@06 PO Last administered on 06:19; Start 02/23/17 at 06:00 Levothyroxine Sodium (Synthroid) 75 mcg DAILY@06 PO Last administered on 06:19; Start 02/23/17 at 06:00 Phytonadione 5 mg 5 mg ONCE STAT PO Last administered on 02/23/17 08:28; Start 02/23/17 at 07:22; Stop 02/23/17 at 07:25; Status DC Lactated Ringer's 1,000 ml @ 30 mls/hr Q24H PRN IV SEE LABEL COMMENTS; Start at 11:00; Stop 02/26/17 at 11:54; Status DC Sodium Chloride (NS 500 ml Inj) 500 ml @ 30 mls/hr [id number] PRN IV SEE LABEL COMMENTS; Start 02/23/17 at 11:00; Stop 02/26/17 at 11:54; Status DC Metoprolol Tartrate (Lopressor) 25 mg PRECISION LENS POLISHER PRN PO SEE LABEL COMMENTS; Start 02/23/17 at 11:00; Stop 02/26/17 at 11:55; Status DC Povidone Iodine (Betadine 5% Antisepsis Kit) 1 applic [employer] PRN EACH NARE SEE LABEL COMMENTS; Start 02/23/17 at 11:00; Stop 02/26/17 at 11:55; Status DC Chlorhexidine Gluconate (Chlorhexidine 2% Cloth) 3 pack [employer] PRN TOPICAL SEE LABEL COMMENTS; Start 02/23/17 at 11:00; Stop 02/26/17 at 11:55; Status DC Insulin Human Regular (NovoLIN R INJ) See Protocol Table ... [employer]ER PRN SQ SEE PROTOCOL TABLE; Start 02/23/17 at 11:00; Stop 02/26/17 at 11:55; Status DC Midazolam HCl (Versed Inj) 2 mg STK-MED ONCE .ROUTE Last administered on 14:42; Start 02/23/17 at 14:25; Stop 02/23/17 at 14:26; Status DC Famotidine (Pepcid Inj) 20 mg STK-MED ONCE .ROUTE Last administered on 14:32; Start 02/23/17 at 14:25; Stop 02/23/17 at 14:26; Status DC Ketamine HCl 500 mg 500 mg STK-MED ONCE .ROUTE ; Start 02/23/17 at 14:29; Stop 02/23/17 at 14:30; Status DC Piperacillin Sod/ Tazobactam Sod 50 ml @ 100 mls/hr PRECISION [employer]ISHER IV ; Start at 14:45; Stop 02/23/17 at 23:59; Status DC Vancomycin HCl 1000 mg/Sodium Chloride 250 ml @ 250 mls/hr ONCE ONCE IV Last administered on 02/23/17 18:33; Start 02/23/17 at 17:00; Stop 02/23/17 at 17:59 ; Status DC Piperacillin Sod/ Tazobactam Sod 50 ml @ 100 mls/hr Q8H IV Last administered on 02/28/17 08:33; Start 02/23/17 at 18:00; Stop 02/28/17 at 18:39; Status DC Levofloxacin/ Dextrose 100 ml @ 100 mls/hr ONCE ONCE IV Last administered on 02/23/17 18:35; Start 02/23/17 at 17:15; Stop 02/23/17 at 18:14; Status DC Piperacillin Sod/ Tazobactam Sod 50 ml @ 100 mls/hr Q8H IV ; Start 02/23/17 at 17:15; Stop 02/23/17 at 17:24; Status DC Levofloxacin/ Dextrose (Levaquin 250 Mg Premix Inj) 50 ml @ 100 mls/hr Q24H IV Last administered on 02/27/17 16:28; Start 02/24/17 at 18:00; Stop 02/28/17 at 12:01; Status DC Heparin Sodium (Porcine) 5000 units 5,000 units Q12HR SQ Last administered on 08:08; Start 02/24/17 at 09:00; Stop 03/04/17 at 15:33; Status DC Sodium Chloride (NS 250 ml Inj) 250 ml @ 15 mls/hr ONCE ONCE IV Last administered on 02/24/17 08:46; Start 02/24/17 at 07:45; Stop 02/25/17 at 00:24 ; Status DC Acetaminophen (Tylenol) 650 mg Q4H PRN PO SEE LABEL COMMENTS; Start 02/24/17 at 07:45; Stop 02/24/17 at 11:46; Status DC Diphenhydramine HCl (Benadryl) 25 mg Q4H PRN PO SEE LABEL COMMENTS Last administered on 02/24/17 08:46; Start 02/24/17 at 07:45; Stop 02/24/17 at 11:46 ; Status DC Dextrose (D50w (Vial) Inj) 25 ml UNSCH PRN IV PUSH HYPOGLYCEMIA-SEE COMMENTS; Start 02/24/17 at 11:45 Glucagon (Glucagon Inj) 1 mg UNSCH PRN OTHER HYPOGLYCEMIA-SEE COMMENTS; Start 02/24/17 at 11:45 Insulin Human Regular (NovoLIN R SUPPLEMENTAL SCALE) 1 ACHS SLIDING SCALE SQ Last administered on 03/06/17 12:09; Start 02/24/17 at 16:00 Cholecalciferol (Vitamin D3) 5,000 units DAILY PO Last administered on 09:29; Start 02/25/17 at 09:00 Furosemide (Lasix Inj) 40 mg ONCE ONCE IV PUSH Last administered on 02/24/17 12:53; Start 02/24/17 at 13:00; Stop 02/24/17 at 13:01; Status DC Bupivacaine HCl (Marcaine Pf 0.5% Inj) 30 ml STK-MED ONCE NERV BLOCK ; Start 10/30 at 12:41; Stop 02/24/17 at 12:41; Status DC Insulin Human Regular 7 units 7 units NOW ONCE SQ Last administered on 13:01; Start 02/24/17 at 13:00; Stop 02/24/17 at 13:01; Status DC Vancomycin HCl/ Sodium Chloride (Vancomycin Inj/ NS 250 ml Inj) 250 ml @ 250 mls/hr ONCE ONCE IV Last administered on 02/24/17 17:02; Start 02/24/17 at 15 :00; Stop 02/24/17 at 15:59; Status DC Loperamide HCl (Imodium) 2 mg Q6H PRN PO DIARRHEA Last administered on 16:58; Start 02/24/17 at 20:30 Furosemide (Lasix) 40 mg DAILY PO Last administered on 03/06/17 09:29; Start 02/25/17 at 09:00 Phytonadione (Mephyton) 2.5 mg DAILY PO Last administered on 02/27/17 07:56; Start 02/25/17 at 12:00; Stop 02/27/17 at 09:01; Status DC Morphine Sulfate (*morphine INJ PERIprocedure ONLY) 8 mg STK-MED ONCE .ROUTE Last administered on 02/25/17 14:09; Start 02/25/17 at 14:09; Stop 02/25/17 at 14:10; Status DC Fentanyl Citrate (fentaNYL INJ) 250 mcg STK-MED ONCE .ROUTE ; Start 02/25/17 at 14:21; Stop 02/25/17 at 14:22; Status DC Morphine Sulfate (*morphine INJ PERIprocedure ONLY) 8 mg STK-MED ONCE .ROUTE Last administered on 02/25/17 14:25; Start 02/25/17 at 14:25; Stop 02/25/17 at 14:26; Status DC Morphine Sulfate (*morphine INJ PERIprocedure ONLY) 8 mg STK-MED ONCE .ROUTE Last administered on 02/25/17 14:37; Start 02/25/17 at 14:37; Stop 02/25/17 at 14:38; Status DC Hydromorphone HCl (*DILAUDID PF INJ PERIprocedural ONLY) 1 mg STK-MED ONCE .ROUTE Last administered on 02/25/17 15:02; Start 02/25/17 at 15:02; Stop at 15:03; Status DC Gabapentin (Neurontin) 200 mg TID PO Last administered on 02/28/17 08:33; Start 02/26/17 at 13:00; Stop 02/28/17 at 11:49; Status DC Betamethasone/ Clotrimazole (Lotrisone Cream) 1 applic Q12HR TOPICAL Last administered on 03/06/17 09:30; Start 02/27/17 at 09:00 Furosemide (Lasix Inj) 20 mg UNSCH X1 PRN IV PUSH BETWEEN UNITS OF BLOOD Last administered on 02/28/17 17:34; Start 02/28/17 at 09:15; Stop 02/28/17 at 23:59 ; Status DC Phytonadione (Mephyton) 2.5 mg DAILY PO Last administered on 03/03/17 08:43; Start 03/01/17 at 09:00; Status Hold Phytonadione (Mephyton) 2.5 mg ONCE ONCE PO Last administered on 02/28/17 14: 53; Start 02/28/17 at 12:00; Stop 02/28/17 at 12:01; Status DC Gabapentin (Neurontin) 100 mg TID PO Last administered on 03/06/17 16:58; Start 02/28/17 at 13:00 Sitagliptin Phosphate (Januvia) 25 mg DAILY PO ; Start 03/01/17 at 09:00; Stop 03/01/17 at 09:00; Status DC Miscellaneous 1 ea 1 ea UNSCH PRN OTHER SEE LABEL COMMENTS; Start 02/28/17 at 12:00 Levofloxacin/ Dextrose 50 ml @ 100 mls/hr Q48H IV Last administered on 17:59; Start 03/01/17 at 18:00; Stop 03/03/17 at 11:58; Status DC Sodium Chloride 250 ml @ 250 mls/hr BOLUS ONCE IV Last administered on 13:08; Start 02/28/17 at 12:30; Stop 02/28/17 at 13:29; Status DC Vancomycin HCl 1000 mg/Sodium Chloride 250 ml @ 250 mls/hr ONCE ONCE IV ; Start 02/28/17 at 14:15; Stop 02/28/17 at 15:14; Status DC Fluconazole/ Sodium Chloride (Diflucan 400 Mg Premix Bag) 200 ml @ 100 mls/hr Q24H IV ; Start 02/28/17 at 15:00; Stop 02/28/17 at 18:36; Status DC Albuterol/ Ipratropium 1 ampule 1 ampule QID NEB NEB Last administered on 03/04 19:35; Start 02/28/17 at 20:00; Stop 03/04/17 at 20:00; Status DC Fluconazole/ Sodium Chloride 100 ml @ 100 mls/hr Q24H IV Last administered on 03/01/17 21:43; Start 02/28/17 at 22:00; Stop 03/02/17 at 10:19; Status DC Piperacillin Sod/ Tazobactam Sod 50 ml @ 100 mls/hr Q8H IV Last administered on 03/03/17 06:58; Start 02/28/17 at 23:00; Stop 03/03/17 at 11:59; Status DC Vancomycin HCl/ Sodium Chloride (Vancomycin Inj/ NS 250 ml Inj) 250 ml @ 250 mls/hr ONCE ONCE IV Last administered on 02/28/17 21:00; Start 02/28/17 at 21 :00; Stop 02/28/17 at 21:59; Status DC Etomidate 20 mg 20 mg STK-MED ONCE .ROUTE ; Start 02/28/17 at 21:24; Stop at 21:25; Status DC Midazolam HCl 100 ml @ 0 mls/hr TITRATE IV Last administered on 02/28/17 22:31 ; Start 02/28/17 at 22:15; Stop 03/01/17 at 07:38; Status DC Fentanyl Citrate 250 ml @ 0 mls/hr TITRATE IV Last administered on 02/28/17 22 :32; Start 02/28/17 at 22:15; Stop 03/01/17 at 07:38; Status DC Sodium Chloride (NS 1000 ml Inj) 1,000 ml @ 150 mls/hr Q6H40M IV Last administered on 03/01/17 05:50; Start 03/01/17 at 00:45; Stop 03/01/17 at 07:38 ; Status DC Sitagliptin Phosphate (Januvia) 25 mg DAILY PO Last administered on 03/06/17 09:29; Start 03/01/17 at 09:00 Sodium Chloride (NS Flush) UNSCH PRN IVF SEE PROTOCOL; Start 03/01/17 at 10:15 Heparin Sodium (Porcine) UNSCH PRN IV FLUSH SEE PROTOCOL; Start 03/01/17 at 10 :15 Sodium Chloride (NS 1000 ml Inj) 1,000 ml @ 0 mls/hr Q0M PRN IV For Prime & Rinse Back; Start 03/01/17 at 11:39 Heparin Sodium (Porcine) 8000 units 8,000 units UNSCH PRN IVF WITH DIALYSIS Last administered on 03/02/17 14:44; Start 03/01/17 at 11:45 Sodium Chloride 1,000 ml @ 200 mls/hr Q5H PRN IV WITH DIALYSIS; Start 03/01/17 at 11:39 Sodium Chloride (NS 1000 ml Inj) 1,000 ml @ 0 mls/hr Q0M PRN IV WITH DIALYSIS; Start 03/01/17 at 11:39 Mannitol (Mannitol Inj) 12.5 gm UNSCH PRN IV WITH DIALYSIS; Start 03/01/17 at 11:45 Albumin Human (Albumin 25% Inj) 25 gm UNSCH PRN IV WITH DIALYSIS; Start at 11:45 Sodium Chloride (NS Flush) 5 ml UNSCH PRN IV FLUSH WITH DIALYSIS; Start at 11:45 Heparin Sodium (Porcine) (Heparin Inj) UNSCH PRN .XX WITH DIALYSIS Last administered on 03/01/17 17:33; Start 03/01/17 at 11:45 Gentamicin Sulfate (Gentamicin (Dialysis) Inj) 20 mg UNSCH PRN IV WITH DIALYSIS Last administered on 03/02/17 14:44; Start 03/01/17 at 11:45 Ondansetron HCl (Zofran Inj) 4 mg UNSCH PRN IV WITH DIALYSIS; Start 03/01/17 at 11:45 Acetaminophen (Tylenol) 650 mg UNSCH PRN PO for headach, pain, temp > 101F; Start 03/01/17 at 11:45 Diphenhydramine HCl (Benadryl) 25 mg UNSCH PRN PO for hives/itching/anaphylaxis ; Start 03/01/17 at 11:45 Nitroglycerin (Nitrostat Sl) 0.4 mg UNSCH PRN SL CHEST PAIN; Start 03/01/17 at 11:45 Clonidine (Catapres) 0.1 mg UNSCH PRN PO for BP > 180/100 X 2 readings; Start 03/01/17 at 11:45 Gelatin (Gelfoam 12 Mm/7 Mm Top) 1 foam UNSCH PRN TOP SEE LABEL COMMENTS; Start 03/01/17 at 11:45 Alteplase, Recombinant (Cathflo Activase Inj) 2 mg ONCE ONCE IV Last administered on 03/01/17 15:48; Start 03/01/17 at 12:45; Stop 03/01/17 at 12:46 ; Status DC Propofol 200 mg 200 mg STK-MED ONCE IV ; Start 02/23/17 at 12:00; Stop 03/01/17 at 14:19; Status DC Lactated Ringer's (Lr 1000 ml Inj) 1,000 ml @ As Directed STK-MED ONCE IV ; Start 02/23/17 at 12:00; Stop 03/01/17 at 14:19; Status DC Propofol 200 mg 200 mg STK-MED ONCE IV ; Start 02/23/17 at 12:00; Stop 03/01/17 at 14:22; Status DC Lactated Ringer's 1,000 ml @ As Directed STK-MED ONCE IV ; Start 02/23/17 at 12 :00; Stop 03/01/17 at 14:22; Status DC Fentanyl Citrate (fentaNYL DRIP) 250 ml @ 0 mls/hr TITRATE IV ; Start 03/01/17 at 18:00 Diltiazem HCl (Cardizem) 60 mg ONCE ONCE PO Last administered on 03/02/17 07: 59; Start 03/02/17 at 08:00; Stop 03/02/17 at 08:01; Status DC Vitamin B Complex/ Vit C/Folic Acid (Nephrocaps) 1 cap DAILY PO Last administered on 03/06/17 09:29; Start 03/03/17 at 09:00 Levofloxacin (Levaquin) 250 mg Q48H PO Last administered on 03/05/17 13:02; Start 03/03/17 at 13:00; Stop 03/09/17 at 12:59 Amoxicillin/ Clavulanate Potassium 500 mg 500 mg Q12HR PO Last administered on 03/06/17 09:28; Start 03/03/17 at 20:00; Stop 03/08/17 at 23:00 Vancomycin HCl 1000 mg/Sodium Chloride 250 ml @ 250 mls/hr PREC[employer]ER IV Last administered on 03/04/17 14:07; Start 03/03/17 at 17:15; Stop 03/07/17 at 17:14 Cefazolin Sodium/ Dextrose (Ancef 2 Gm Premix) 50 ml @ 100 mls/hr [employer]ER IV Last administered on 03/04/17 14:08; Start 03/03/17 at 17:15; Stop 03/07/17 at 17:14 Potassium Chloride (KCl) 20 meq ONCE ONCE PO ; Start 03/04/17 at 10:00; Stop at 10:01; Status DC Heparin Sodium (Porcine) (*HEPARIN INJ Periprocedural ONLY) 10,000 units STK- MED ONCE .ROUTE Last administered on 03/04/17 14:47; Start 03/04/17 at 14:47; Stop 03/04/17 at 14:48; Status DC Lidocaine/ Epinephrine (Xylocaine-Epi 1%-1:100,000 Inj) 20 ml STK-MED ONCE .ROUTE Last administered on 03/04/17 14:47; Start 03/04/17 at 14:47; Stop at 14:48; Status DC Midazolam HCl (Versed Inj) 5 mg STK-MED ONCE .ROUTE Last administered on 15:15; Start 03/04/17 at 14:54; Stop 03/04/17 at 14:55; Status DC Fentanyl Citrate 250 mcg 250 mcg STK-MED ONCE .ROUTE Last administered on 15:15; Start 03/04/17 at 14:54; Stop 03/04/17 at 14:55; Status DC Pharmacy Profile Note (Coumadin Consult Pharmacy) 0 ml @ 0 mls/hr UNSCH OTHER ; Start 03/04/17 at 15:30 Warfarin Sodium (Coumadin) 2 mg DAILY@16 PO Last administered on 03/04/17 17: 59; Start 03/04/17 at 16:00; Stop 03/05/17 at 09:10; Status DC Patient Medication Teaching (Coumadin Booklet) 1 ONCE ONCE .XX Last administered on 03/04/17 17:46; Start 03/04/17 at 15:45; Stop 03/04/17 at 15:46 ; Status DC Warfarin Sodium (Coumadin) 2.5 mg DAILY@1600 PO Last administered on 03/05/17 16:15; Start 03/05/17 at 16:00; Stop 03/06/17 at 10:23; Status DC Heparin Sodium (Porcine) (Heparin Inj) 5,000 units Q12H SQ Last administered on 03/06/17 16:58; Start 03/05/17 at 18:00 Warfarin Sodium (Coumadin) 3 mg DAILY@1600 PO Last administered on 03/06/17t 16 :58; Start 03/06/17 at 16:00 Physical Exam General Appearance: No Acute Distress Appearance Remarks More alert Eyes Eye Exam: Sclera White Pulmonary Resp Exam: Clear Bilaterally, Breath Sounds Equal, No Distress Cardiology CV Exam: Regular, Normal Sinus Rhythm Gastrointestinal/Abdomen GI Exam: Soft, Non-Tender Integumentary Skin Exam: Clear, Warm Extremeties Extremities Exam: No Edema Assessment/Plan Discussed Condition With: Patient, Spouse Problem List: (1) CKD (chronic kidney disease) stage 4, GFR 15-29 ml/min Plan: Patient is doing well clinically. Hemodialysis PermCath is in place and will be utilized tomorrow. Previous failed access right upper extremity. Patient to follow-up with Dr. Leonard at a later date regarding options. Patient had questions regarding other modalities available including peritoneal dialysis. Discussed with patient and options available for dialytic support. Given the patient's overall condition a burn of home dialysis would be placed upon his and I do not believe that this is an ideal situation. The patient is transferred to the [facility] nephrology care there will have to be provided by another medical transcription with privileges there. Patient indicated that he will return to my care post discharge from that facility. Continue on Tuesday schedule. Medications should be adjusted for the patient's ESRD. Avoid gadolinium. (2) Vitamin D deficiency Plan: Vitamin D as ordered. (3) Malnutrition Plan: Appetite much improved. Continue to monitor nutritional status. (4) Diabetes Plan: Management per primary care physician. (5) Hypertension Problem Qualifiers (1) Diabetes: Jeremiah Hagan MD Mar 06, 2017 17:19
[2017-03-06] MEDS ORDERED: EPOETIN ALFA 10,000 UNITS/ML VIAL IV PRN (17:30)
[2017-03-06] MEDS: ATORVASTATIN 40 MG TAB PO SCH (21:16)
[2017-03-07] VITALS: BP 162/79; PULSE 64; RESP 18; TEMP 95.6; O2SAT 94
[2017-03-07 04:00] VITALS: BP 145/88; PULSE 75; RESP 20; TEMP 95; O2SAT 93
[2017-03-07] MEDS: LEVOTHYROXINE SODIUM 100 MCG TAB PO SCH (05:36)
[2017-03-07] MEDS: HEPARIN SODIUM - SQ 10,000 UNITS/ML VIAL SQ SCH ×2 (05:36→17:28)
[2017-03-07] MEDS: LEVOTHYROXINE SODIUM 75 MCG TAB PO SCH (05:36)
[2017-03-07] MEDS: FUROSEMIDE 40 MG TAB PO SCH (08:23)
[2017-03-07] MEDS: CHOLECALCIFEROL (VIT D3) 5000 UNIT CAP PO SCH (08:23)
[2017-03-07] MEDS: GABAPENTIN 100 MG CAP PO SCH ×3 (08:23→17:26)
[2017-03-07] MEDS: AMOXICILLIN/CLAVULANATE K 500 MG TAB PO SCH ×2 (08:23→21:27)
[2017-03-07] MEDS: cloNIDine HCL 0.1 MG TAB PO SCH ×2 (08:24→21:28)
[2017-03-07] MEDS: DILTIAZEM-CD 240 MG CAP ER PO SCH (08:24)
[2017-03-07] MEDS: PANTOPRAZOLE SOD 40 MG DELAYED RELEASE TAB PO SCH (08:24)
[2017-03-07] MEDS: ATENOLOL 100 MG TAB PO SCH ×2 (08:24→21:27)
[2017-03-07] MEDS: VITAMIN B CMPLX/VITC/FOLIC AC CAP PO SCH (08:25)
[2017-03-07] MEDS: BETAMETHASONE/CLOTRIMAZOLE CREAM 15 GM TOPICAL SCH ×2 (08:28→21:27)
[2017-03-07] MEDS: SODIUM CHLORIDE 0.9% FLUSH 10 ML FLUSH IV FLUSH SCH ×2 (08:28→21:28)
[2017-03-07 08:52] VITALS: BP 157/86; PULSE 75; RESP 20; TEMP 95.2; O2SAT 95
[2017-03-07] MEDS ORDERED: ATOR40TA16 PO (09:00)
[2017-03-07] MEDS ORDERED: CLON.1 PO (09:00)
[2017-03-07] MEDS ORDERED: ATEN100T PO (09:00)
[2017-03-07] MEDS ORDERED: COUM3TAB PO (09:00)
[2017-03-07] MEDS ORDERED: LEVA250T PO (09:00)
[2017-03-07] MEDS ORDERED: CARD240C6 PO (09:00)
[2017-03-07] MEDS ORDERED: NEPHRO PO (09:00)
[2017-03-07] MEDS ORDERED: AUGM500T7 PO (09:00)
[2017-03-07] MEDS ORDERED: HEPA10003 SQ (09:00)
[2017-03-07] MEDS ORDERED: FURO40TA PO (09:00)
[2017-03-07] MEDS ORDERED: SITA25 PO (09:00)
[2017-03-07] MEDS ORDERED: CHOL5000 PO (09:00)
[2017-03-07] MEDS ORDERED: LEVO.075 PO (09:00)
[2017-03-07] MEDS ORDERED: LEVO.1 PO (09:00)
[2017-03-07] MEDS ORDERED: GABA100C4 PO (09:00)
[2017-03-07] MEDS ORDERED: PANT40TA3 PO (09:00)
--- NOTE | 2017-03-07 09:07 | HHI.DS ---
Discharge Summary Admission Date Feb 22, 2017 at 17:50 Admitting Diagnosis sepsis, right lower extremity gangrene Procedures 02/23 BKA of right leg 02/25 AKA r leg Brief History Patient is a 71-year-old male with history of atrial fibrillation, and poorly controlled diabetes who presents the emergency department with complaint of generalized weakness. Patient has apparently had a wound on the right foot for a reported 3-4 years. Per sewing machine adjuster patient has evidence of gangrene and will need evaluation for possible amputation, osteomyelitis, etc. Patient is nonambulatory at baseline. Denies any fevers or chills documented. CBC/BMP: 03/06/17 0613 03/06/17 0613 Significant Findings Laboratory Tests Test 03/05/17 03/06/17 05:02 06:13 White Blood Count 11.6 TH/MM3 11.1 TH/MM3 (4.0-11.0) (4.0-11.0) Red Blood Count 3.02 MIL/MM3 3.18 MIL/MM3 (4.50-5.90) (4.50-5.90) Hemoglobin 8.7 GM/DL 9.5 GM/DL (13.0-17.0) (13.0-17.0) Hematocrit 26.8 % 28.4 % (39.0-51.0) (39.0-51.0) Neutrophils (%) (Auto) 84.3 % 82.8 % (16.0-70.0) (16.0-70.0) Lymphocytes (%) (Auto) 5.0 % 5.5 % (9.0-44.0) (9.0-44.0) Neutrophils # (Auto) 9.8 TH/MM3 9.2 TH/MM3 (1.8-7.7) (1.8-7.7) Lymphocytes # (Auto) 0.6 TH/MM3 0.6 TH/MM3 (1.0-4.8) (1.0-4.8) Prothrombin Time 14.7 SEC 14.6 SEC (9.8-11.6) (9.8-11.6) Potassium Level 3.3 MEQ/L (3.5-5.1) Blood Urea Nitrogen 20 MG/DL (7-18) 25 MG/DL (7-18) Creatinine 3.36 MG/DL 4.07 MG/DL (0.60-1.30) (0.60-1.30) Estimat Glomerular Filtration 18 ML/MIN (>89) 15 ML/MIN (>89) Rate Random Glucose 116 MG/DL 151 MG/DL (74-106) (74-106) Calcium Level 7.8 MG/DL 8.0 MG/DL (8.5-10.1) (8.5-10.1) Monocytes (%) (Auto) 8.6 % (0.0-8.0) Monocytes # (Auto) 1.0 TH/MM3 (0-0.9) PE at Discharge GENERAL: cooperative SKIN: Warm and dry. Discoloration in lower extremity HEAD: Normocephalic. EYES: No scleral icterus. No injection or drainage. NECK: Supple, trachea midline. No JVD or lymphadenopathy. CARDIOVASCULAR: Regular rate and rhythm without murmurs, gallops, or rubs. RESPIRATORY: Breath sounds equal bilaterally. No accessory muscle use. Intubated GASTROINTESTINAL: Abdomen soft, non-tender, nondistended. MUSCULOSKELETAL: No cyanosis, or edema. Status post right AKA. Dressing on BACK: Nontender without obvious deformity. No CVA tenderness. Hospital Course Patient is a 71-year-old male with history of atrial fibrillation, and poorly controlled diabetes who presents the emergency department with complaint of generalized weakness. Patient has apparently had a wound on the right foot for a reported 3-4 years. Per sewing machine adjuster patient has evidence of gangrene and will need evaluation for possible amputation, osteomyelitis, etc. Patient is nonambulatory at baseline. Pateint was admitted with coagulopathy with INR greater than 14.5, renal failure, and sepsis with a WBC 37.7. Patient had a right BKA on 02/24 and tolerated well. On 02/28 had a AKA. His hospital course was also complicated by CHF and respiratory insufficiency needing to be ventilated. He was also started on dialysis and had a perma cath placed. Dialysis on MWF. He is on room air now and breathing easily Plan is to discharge to [facility] Pt Condition on Discharge: Good Discharge Disposition: Rehab Inpatient Discharge Instructions DIET: Follow Instructions for: Diabetic Diet Speech Therapy-Diet Recommenda: Regular Activities you can perform: Regular-No Restrictions New Medications: Amoxicillin-Clavulanate (Augmentin) 500-125 mg Tab 500 MG PO Q12HR Infection #4 TAB Atenolol (Atenolol) 100 Mg Tab 100 MG PO BID Blood Pressure Management #60 TAB Atorvastatin (Atorvastatin) 40 Mg Tab 40 MG PO HS Cholesterol Management #30 TAB Cholecalciferol (Vitamin D3) 5,000 Unit Cap 5000 UNITS PO DAILY Electrolyte Replacement #30 CAP Clonidine (Catapres) 0.1 Mg Tab 0.1 MG PO BID Blood Pressure Management #60 TAB Diltiazem CD 24 HR (Cardizem CD 24 HR) 240 Mg Caper 240 MG PO DAILY Blood Pressure Management #30 CAP Furosemide (Furosemide) 40 Mg Tab 40 MG PO DAILY Blood Pressure Management #30 TAB Gabapentin (Gabapentin) 100 Mg Cap 100 MG PO TID Pain Management #90 CAP Heparin Sodium (Porcine) (Heparin Sodium) 10,000 Unit/Ml Inj 5000 UNITS SQ Q12H Blood Clot Prevention #30 INJECTION Levofloxacin (Levaquin) 250 Mg Tab 250 MG PO Q48H Infection #2 TAB Levothyroxine (Synthroid) 100 Mcg Tab 100 MCG PO DAILY@06 Thyroid #30 TAB Levothyroxine (Synthroid) 75 Mcg Tab 75 MCG PO DAILY@06 Thyroid #30 TAB Pantoprazole (Pantoprazole) 40 Mg Tab 40 MG PO DAILY Reflux #30 TAB Sitagliptin (Januvia) 25 Mg Tab 25 MG PO DAILY Blood Sugar Management #30 TAB Vitamin B Cmplx/Vit C/Folic AC (Nephro-Courtney Rx) 1 Tab 1 CAP PO DAILY Electrolyte Replacement #30 TAB Warfarin (Coumadin) 3 Mg Tab 3 MG PO DAILY@1600 Blood Clot Prevention #30 TAB Discontinued Medications: Atenolol (Atenolol) 100 Mg Tab 100 MG PO BID Blood Pressure Management #60 Ref 0 TAB Atorvastatin (Atorvastatin) 40 Mg Tab 40 MG PO HS Cholesterol Management #30 Ref 0 TAB Cholecalciferol (Vitamin D) 400 Unit Tab DAILY Clonidine (Clonidine) 0.1 Mg Tab 0.1 MG PO BID Blood Pressure Management #60 Ref 0 TAB Diltiazem CD 24 HR (Diltiazem CD 24 HR) 240 Mg Caper 240 MG PO DAILY #30 Ref [address] (Nexium) 40 Mg Capdr 40 MG PO DAILY Ref 0 CAP Levothyroxine (Levothyroxine) 175 Mcg Tab 175 MCG PO DAILY Thyroid #30 Ref 0 TAB Sitagliptin (Januvia) 50 Mg Tab 50 MG PO DAILY Blood Sugar Management #30 Ref 0 TAB Sodium Bicarbonate (Sodium Bicarbonate) 650 Mg Tab 650 MG PO TIDPC #90 Ref 0 TAB Cherie Loyd Mar 07, 2017 09:07
--- NOTE | 2017-03-07 10:08 | HHI.NPPN ---
Subjective History of Present Illness This patient is a 71-year-old male with a history of long-standing diabetes mellitus and hypertension as well as chronic kidney disease known to me from the office, approaching end-stage renal disease. 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 Patient did have an AV dialysis shunt placed in preparation for dialysis unfortunately access failed. Is on sodium bicarbonate chronically for metabolic acidosis. There has been concern regarding nutritional status recently. Interval History Pt seen during HD today. Potential discharge to rehab today, but this is not certain. Has [facility] that is working well. No c/o's today (Vera June) Review of Systems General General Remarks No verbal complaints. (Vera June) Objective Data Data 03/06/17 03/07/17 19:00 07:00 Intake Total 720 ml 520 ml Output Total 400 ml 550 ml Balance 320 ml -30 ml Intake Oral 720 ml 520 ml Output Urine Total 400 ml 550 ml # Bowel Movements 1 3 Vital Signs Date Time Temp Pulse Resp B/P Pulse Ox O2 Delivery O2 Flow Rate FiO2 03/07/17 08:52 95.2 75 20 157/86 95 03/07/17 08:39 Room Air 03/07/17 04:00 95.0 75 20 145/88 93 03/07/17 00:00 95.6 64 18 162/79 94 03/06/17 21:00 75 03/06/17 20:00 95.4 82 18 150/77 93 03/06/17 16:00 97.1 60 18 118/72 95 03/06/17 12:00 97.1 74 18 170/85 95 03/06/17 11:11 68 (Vera June) -: 03/06/17 0613 03/06/17 0613 Imaging Last Impressions Central Venous Line 03/04/17 0000 Signed Impressions: Service Date/Time: Saturday, March 04, 2017 00:00 - CONCLUSION: Uncomplicated catheter removal. Maxime Ray MD Catheter Placement X-Ray 03/04/17 0000 Signed Impressions: Service Date/Time: Saturday, March 04, 2017 15:48 - CONCLUSION: Uncomplicated PermaCath placement as above. Maxime Ray MD Chest X-Ray 03/02/17 0600 Signed Impressions: Service Date/Time: Thursday, March 02, 2017 05:26 - CONCLUSION: Dense consolidation left lower lobe. Tubes and catheters are in good position. Gabriel Beavers MD Upper Extremity Ultrasound 03/02/17 0000 Signed Impressions: Service Date/Time: Thursday, March 02, 2017 21:15 - CONCLUSION: Superficial nonocclusive thrombus in the distal cephalic vein to the antecubital fossa. Gabriel Beavers MD Foot X-Ray 02/22/17 0000 Signed Impressions: Service Date/Time: Wednesday, February 22, 2017 17:46 - CONCLUSION: Soft tissues extensive soft tissue emphysema, mottled in appearance very concerning for infection with gas-forming organism. No obvious osseous destruction is seen to suggest osteomyelitis. Abhi Seo MD Tubes & Lines: Perma-Cath Medication Review Current Medications Medications (Trade) Dose Ordered Sig/[place] Route Start Time Stop Time Status Last Admin (NS Flush) 2 ml UNSCH PRN IV FLUSH 02/22/17 18:15 (NS Flush) 2 ml BID IV FLUSH 02/22/17 21:00 03/07/17 08:28 (Zofran Inj) 4 mg Q6H PRN IVP 02/22/17 18:15 (Narcan Inj) 0.4 mg UNSCH PRN IV 02/22/17 18:15 ([place] 10-325 Mg) 1 tab Q4H PRN PO 02/22/17 18:15 03/04/17 20:37 (Tenormin) 100 mg BID PO 02/22/17 21:00 03/07/17 08:24 (Lipitor) 40 mg HS PO 02/22/17 21:00 03/06/17 21:16 (Catapres) 0.1 mg BID PO 02/22/17 21:00 03/07/17 08:24 (Cardizem Cd) 240 mg DAILY PO 02/23/17 09:00 03/07/17 08:24 (Protonix) 40 mg DAILY PO 02/23/17 09:00 03/07/17 08:24 (Synthroid) 100 mcg DAILY@06 PO 02/23/17 06:00 03/07/17 05:36 (Synthroid) 75 mcg DAILY@06 PO 02/23/17 06:00 03/07/17 05:36 (D50w (Vial) Inj) 25 ml UNSCH PRN IV PUSH 02/24/17 11:45 (Glucagon Inj) 1 mg UNSCH PRN OTHER 02/24/17 11:45 (Vitamin D3) 5,000 units DAILY PO 02/25/17 09:00 03/07/17 08:23 (Imodium) 2 mg Q6H PRN PO 02/24/17 20:30 03/06/17 16:58 (Lasix) 40 mg DAILY PO 02/25/17 09:00 03/07/17 08:23 (Lotrisone Cream) 1 applic Q12HR TOPICAL 02/27/17 09:00 03/07/17 08:28 (Neurontin) 100 mg TID PO 02/28/17 13:00 03/07/17 08:23 (Pill Splitter) 1 ea UNSCH PRN OTHER 02/28/17 12:00 (Januvia) 25 mg DAILY PO 03/01/17 09:00 03/07/17 08:23 (NS Flush) UNSCH PRN IVF 03/01/17 10:15 Heparin Sodium (Porcine) UNSCH PRN IV FLUSH 03/01/17 10:15 (NS 1000 ml Inj) 1,000 ml @ 0 mls/hr Q0M PRN IV 03/01/17 11:39 Heparin Sodium (Porcine) 8000 units 8,000 units UNSCH PRN IVF 03/01/17 11:45 03/02/17 14:44 Sodium Chloride 1,000 ml @ 200 mls/hr Q5H PRN IV 03/01/17 11:39 (NS 1000 ml Inj) 1,000 ml @ 0 mls/hr Q0M PRN IV 03/01/17 11:39 (Mannitol Inj) 12.5 gm UNSCH PRN IV 03/01/17 11:45 (Albumin 25% Inj) 25 gm UNSCH PRN IV 03/01/17 11:45 (NS Flush) 5 ml UNSCH PRN IV FLUSH 03/01/17 11:45 (Heparin Inj) UNSCH PRN .XX 03/01/17 11:45 03/01/17 17:33 (Gentamicin (Dialysis) Inj) 20 mg UNSCH PRN IV 03/01/17 11:45 03/02/17 14:44 (Zofran Inj) 4 mg UNSCH PRN IV 03/01/17 11:45 (Tylenol) 650 mg UNSCH PRN PO 03/01/17 11:45 (Benadryl) 25 mg UNSCH PRN PO 03/01/17 11:45 (Nitrostat Sl) 0.4 mg UNSCH PRN SL 03/01/17 11:45 (Catapres) 0.1 mg UNSCH PRN PO 03/01/17 11:45 Gelatin 1 foam 1 foam UNSCH PRN TOP 03/01/17 11:45 (fentaNYL DRIP) 250 ml @ 0 mls/hr TITRATE IV 03/01/17 18:00 (Nephrocaps) 1 cap DAILY PO 03/03/17 09:00 03/07/17 08:25 (Levaquin) 250 mg Q48H PO 03/03/17 13:00 03/09/17 12:59 03/05/17 13:02 Amoxicillin/ Clavulanate Potassium 500 mg 500 mg Q12HR PO 03/03/17 20:00 03/08/17 23:00 03/07/17 08:23 (Coumadin Consult Pharmacy) 0 ml @ 0 mls/hr UNSCH OTHER 03/04/17 15:30 (Heparin Inj) 5,000 units Q12H SQ 03/05/17 18:00 03/07/17 05:36 (Coumadin) 3 mg DAILY@1600 PO 03/06/17 16:00 03/06/17 16:58 (Epogen Inj) 5,000 units UNSCH PRN IV 03/06/17 17:30 (Vera June) Physical Exam General Appearance: No Acute Distress (Vera June) Eyes Eye Exam: Sclera White (Vera June) Pulmonary Resp Exam: Clear Bilaterally, Breath Sounds Equal, No Distress (Vera June) Cardiology CV Exam: Regular, Normal Sinus Rhythm (Vera June) Gastrointestinal/Abdomen GI Exam: Soft, Non-Tender (Vera June) Integumentary Skin Exam: Clear, Warm (Vera June) Extremeties Extremities Exam: No Edema (Vera June) Neurologic Neuro Exam: Alert, Awake, Oriented (Vera June) Psychiatric Psych Exam: Appropriate Responses (Vera June) Assessment/Plan Discussed Condition With: Patient, Spouse Problem List: (1) CKD (chronic kidney disease) stage 4, GFR 15-29 ml/min Plan: Seen during HD today. Access appears to be working well. Continue on Tuesday schedule. Previous failed access right upper extremity. Patient to follow-up with Dr. Leonard at a later date regarding options. The patient is transferred to the [facility] nephrology care there will have to be provided by another beauty parlor cleaner with privileges there. Patient indicated that he will return to my care post discharge from that facility. Medications should be adjusted for the patient's ESRD. Avoid gadolinium. (2) Diabetes Plan: Management per primary care physician. (3) Hypertension Plan: Start on Losartan 25mg QD for better BP control (4) Vitamin D deficiency Plan: Vitamin D as ordered. (5) Malnutrition Plan: Appetite much improved. Continue to monitor nutritional status. Check albumin tomorrow. (Vera June) Plan The exam, history, and the medical decision-making described in the above note were completed with the assistance of the PA-C. I reviewed and agree with the findings presented. (Jeremiah Hagan MD) Problem Qualifiers (1) Diabetes: Vera June Mar 07, 2017 10:08 Jeremiah Hagan MD Mar 08, 2017 10:48
[2017-03-07 10:12] LABS: AUTOMATED NEUTROPHIL # 8.6 TH/MM3 (1.8-7.7); BASOPHIL # 0.2 TH/MM3 (0-0.2); BASOPHIL % 1.8 % (0.0-2.0); EOSINOPHIL # 0.3 TH/MM3 (0-0.4); EOSINOPHIL % 2.7 % (0.0-4.0); HEMATOCRIT 30.7 % (39.0-51.0); LYMPH % 7.6 % (9.0-44.0); LYMPHOCYTE # 0.8 TH/MM3 (1.0-4.8); MEAN CELL VOLUME 90.2 FL (80.0-100.0); MEAN CORPUSCULAR HGB CONC 32.2 % (32.0-36.0); MONO % 7.4 % (0.0-8.0); NEUT % 80.5 % (16.0-70.0); PLATELET COUNT 219 TH/MM3 (150-450); WHITE BLOOD COUNT 10.7 TH/MM3 (4.0-11.0)
[2017-03-07 10:16] LABS: HEMO FLAGS AUTO DIFF
[2017-03-07 10:21] LABS: INTERNATIONAL NORMALIZED RATIO 1.2 RATIO; PROTHROMBIN TIME - PATIENT 13.6 SEC (9.8-11.6)
[2017-03-07 10:28] LABS: ANION GAP 11 MEQ/L (5-15); AST (GOT) 21 U/L (15-37); BICARBONATE 26.3 MEQ/L (21.0-32.0); BLOOD UREA NITROGEN 28 MG/DL (7-18); CHLORIDE 99 MEQ/L (98-107); GLOMERULAR FILTRATION RATE 13 ML/MIN (>89); POTASSIUM 3.7 MEQ/L (3.5-5.1); SODIUM (NA) 136 MEQ/L (136-145)
[2017-03-07 10:32] LABS: ALKALINE PHOSPHATASE 99 U/L (45-117); ALT (GPT) LESS THAN 6 U/L (12-78); TOTAL BILIRUBIN ADULT 0.4 MG/DL (0.2-1.0)
[2017-03-07 10:56] LABS: BANDS 1 % (0-6); BASOPHILS 1 % (0-2); EOSINOPHILS 1 % (0-4); MYELOCYTES 2 % (0-0); NEUTROPHIL # MANUAL DIFF 9.3 TH/MM3 (1.8-7.7); POLYS (SEG NEUTROPHILS) 84 % (16-70); WBC DIFF SAMPLE 100
[2017-03-07 10:57] LABS: PLATELET ESTIMATE SMEAR NORMAL (NORMAL); PLATELET MORPHOLOGY NORMAL (NORMAL); SCAN/DIFF FINAL DIFF MANUAL
--- NOTE | 2017-03-07 12:04 | PD.ONC.PN ---
Subjective Subjective Remarks Afebrile overnight. Patient denies bleeding. Reports concern about leaving the hospital to go to rehab. Objective Data Date Time Temp Pulse Resp B/P Pulse Ox O2 Delivery O2 Flow Rate FiO2 03/07/17 08:52 95.2 75 20 157/86 95 03/07/17 08:39 Room Air 03/07/17 04:00 95.0 75 20 145/88 93 03/07/17 00:00 95.6 64 18 162/79 94 03/06/17 21:00 75 03/06/17 20:00 95.4 82 18 150/77 93 03/06/17 16:00 97.1 60 18 118/72 95 03/07/17 03/07/17 03/07/17 07:00 15:00 23:00 Intake Total 120 ml Output Total 550 ml Balance -430 ml Result Diagram: 03/07/17 0900 03/07/17 0900 Laboratory Results Laboratory Tests Test 03/07/17 09:00 White Blood Count 10.7 TH/MM3 Red Blood Count 3.40 MIL/MM3 Hemoglobin 9.9 GM/DL Hematocrit 30.7 % Mean Corpuscular Volume 90.2 FL Mean Corpuscular Hemoglobin 29.0 PG Mean Corpuscular Hemoglobin 32.2 % Concent Red Cell Distribution Width 16.0 % Platelet Count 219 TH/MM3 Mean Platelet Volume 9.3 FL Neutrophils (%) (Auto) 80.5 % Lymphocytes (%) (Auto) 7.6 % Monocytes (%) (Auto) 7.4 % Eosinophils (%) (Auto) 2.7 % Basophils (%) (Auto) 1.8 % Neutrophils # (Auto) 8.6 TH/MM3 Lymphocytes # (Auto) 0.8 TH/MM3 Monocytes # (Auto) 0.8 TH/MM3 Eosinophils # (Auto) 0.3 TH/MM3 Basophils # (Auto) 0.2 TH/MM3 CBC Comment AUTO DIFF Differential Total Cells 100 Counted Neutrophils % (Manual) 84 % Band Neutrophils % 1 % Lymphocytes % 7 % Monocytes % 4 % Eosinophils % 1 % Basophils % 1 % Neutrophils # (Manual) 9.3 TH/MM3 Myelocytes 2 % Differential Comment FINAL DIFF MANUAL Platelet Estimate NORMAL Platelet Morphology Comment NORMAL Red Cell Morphology Comment NORMAL Prothrombin Time 13.6 SEC Prothromb Time International 1.2 RATIO Ratio Sodium Level 136 MEQ/L Potassium Level 3.7 MEQ/L Chloride Level 99 MEQ/L Carbon Dioxide Level 26.3 MEQ/L Anion Gap 11 MEQ/L Blood Urea Nitrogen 28 MG/DL Creatinine 4.54 MG/DL Estimat Glomerular Filtration 13 ML/MIN Rate Random Glucose 145 MG/DL Calcium Level 8.5 MG/DL Total Bilirubin 0.4 MG/DL Aspartate Amino Transf 21 U/L (AST/SGOT) Alanine Aminotransferase LESS THAN 6 U/L (ALT/SGPT) Alkaline Phosphatase 99 U/L Total Protein 6.2 GM/DL Albumin 1.8 GM/DL Administered Medications Medications (Trade) Dose Ordered Sig/Lib[place] Route PRN Reason Start Time Stop Time Status Last Admin Dose Admin Sodium Chloride (NS Flush) 2 ml BID IV FLUSH 02/22/17 21:00 03/07/17 08:28 Acetaminophen/ Hydrocodone Bitart ([place] 10-325 Mg) 1 tab Q4H PRN PO PAIN SCALE 1 TO 7 02/22/17 18:15 03/04/17 20:37 Atenolol (Tenormin) 100 mg BID PO 02/22/17 21:00 03/07/17 08:24 Atorvastatin Calcium (Lipitor) 40 mg HS PO 02/22/17 21:00 03/06/17 21:16 Clonidine (Catapres) 0.1 mg BID PO 02/22/17 21:00 03/07/17 08:24 Diltiazem HCl (Cardizem Cd) 240 mg DAILY PO 02/23/17 09:00 03/07/17 08:24 Pantoprazole Sodium (Protonix) 40 mg DAILY PO 02/23/17 09:00 03/07/17 08:24 Levothyroxine Sodium (Synthroid) 100 mcg DAILY@06 PO 02/23/17 06:00 03/07/17 05:36 Levothyroxine Sodium (Synthroid) 75 mcg DAILY@06 PO 02/23/17 06:00 03/07/17 05:36 Cholecalciferol (Vitamin D3) 5,000 units DAILY PO 02/25/17 09:00 03/07/17 08:23 Loperamide HCl (Imodium) 2 mg Q6H PRN PO DIARRHEA 02/24/17 20:30 03/06/17 16:58 Furosemide (Lasix) 40 mg DAILY PO 02/25/17 09:00 03/07/17 08:23 Betamethasone/ Clotrimazole (Lotrisone Cream) 1 applic Q12HR TOPICAL 02/27/17 09:00 03/07/17 08:28 Gabapentin (Neurontin) 100 mg TID PO 02/28/17 13:00 03/07/17 08:23 Sitagliptin Phosphate (Januvia) 25 mg DAILY PO 03/01/17 09:00 03/07/17 08:23 Heparin Sodium (Porcine) (Heparin Inj) 8,000 units UNSCH PRN IVF WITH DIALYSIS 03/01/17 11:45 03/02/17 14:44 Heparin Sodium (Porcine) (Heparin Inj) UNSCH PRN .XX WITH DIALYSIS 03/01/17 11:45 03/01/17 17:33 Gentamicin Sulfate (Gentamicin (Dialysis) Inj) 20 mg UNSCH PRN IV WITH DIALYSIS 03/01/17 11:45 03/02/17 14:44 Vitamin B Complex/ Vit C/Folic Acid (Nephrocaps) 1 cap DAILY PO 03/03/17 09:00 03/07/17 08:25 Levofloxacin (Levaquin) 250 mg Q48H PO 03/03/17 13:00 03/09/17 12:59 03/05/17 13:02 Amoxicillin/ Clavulanate Potassium (Augmentin) 500 mg Q12HR PO 03/03/17 20:00 03/08/17 23:00 03/07/17 08:23 Heparin Sodium (Porcine) (Heparin Inj) 5,000 units Q12H SQ 03/05/17 18:00 03/07/17 05:36 Warfarin Sodium (Coumadin) 3 mg DAILY@1600 PO 03/06/17 16:00 03/06/17 16:58 Objective Remarks GENERAL: Elderly male upright in bed in [facility]. SKIN: Multiple scattered petechiae. HEAD: Normocephalic. EYES: No injection or drainage. NECK: Supple, trachea midline. CARDIOVASCULAR: +S1/S2. RESPIRATORY: Breath sounds equal bilaterally. No accessory muscle use. GASTROINTESTINAL: Abdomen soft, non-tender, nondistended. EXTREMITIES: right leg stump with bandages in place, no bleeding. NEUROLOGICAL: Awake and alert, normal speech. Assessment/Plan Problem List: (1) Anemia Status: Acute Plan: -- Likely secondary to acute blood loss compounded by renal failure and chronic illness. --transfuse as needed to keep hgb>8 (2) Coagulopathy Status: Chronic Plan: --INR now subtherapeutic --Likely multifactorial secondary to vitamin K deficiency, consumption secondary to recent surgery, consumption secondary to recent sepsis and likely decreased hepatic synthetic function (as evidenced by decreased albumin levels). Assessment 71y/o male with supratherapeutic INR in a patient with sepsis secondary to gangrene. --history of atrial fibrillation --has been on Warfarin >10 years. 2.5 mg daily six days a week and 2 mg one day a week. This helped maintain his INR at about 2.5. --s/p right [id number] amputation on 02/23/2017. h/o Diabetes Peripheral vascular disease tobaccoism Agent orange exposure Advanced stage chronic kidney failure Hyperlipidemia Gastroesophageal reflux disease Hypertension Hypothyroidism Plan 1. continue Coumadin--slow titration, pharmacy managing 2. monitor CBC. transfuse for hgb<8 3. continue heparin prophylaxis until INR therapeutic. Charo Medellin Mar 07, 2017 12:04
[2017-03-07] MEDS: HEPARIN SODIUM - IV 10,000 UNITS/10 ML VIAL PRN (13:20)
[2017-03-07] MEDS: GENTAMICIN SULFATE (DIALYSIS USE ONLY) 20 MG/2 ML VIAL IV PRN (13:20)
--- NOTE | 2017-03-07 13:38 | PD.CARD.PN ---
Subjective Subjective Remarks No CP or SOB, in dialysis Objective Medications Current Medications Medications (Trade) Dose Ordered Sig/[place] Route Start Time Stop Time Status Last Admin (NS Flush) 2 ml UNSCH PRN IV FLUSH 02/22/17 18:15 (NS Flush) 2 ml BID IV FLUSH 02/22/17 21:00 03/07/17 08:28 (Zofran Inj) 4 mg Q6H PRN IVP 02/22/17 18:15 (Narcan Inj) 0.4 mg UNSCH PRN IV 02/22/17 18:15 ([place] 10-325 Mg) 1 tab Q4H PRN PO 02/22/17 18:15 03/04/17 20:37 (Tenormin) 100 mg BID PO 02/22/17 21:00 03/07/17 08:24 (Lipitor) 40 mg HS PO 02/22/17 21:00 03/06/17 21:16 (Catapres) 0.1 mg BID PO 02/22/17 21:00 03/07/17 08:24 (Cardizem Cd) 240 mg DAILY PO 02/23/17 09:00 03/07/17 08:24 (Protonix) 40 mg DAILY PO 02/23/17 09:00 03/07/17 08:24 (Synthroid) 100 mcg DAILY@06 PO 02/23/17 06:00 03/07/17 05:36 (Synthroid) 75 mcg DAILY@06 PO 02/23/17 06:00 03/07/17 05:36 (D50w (Vial) Inj) 25 ml UNSCH PRN IV PUSH 02/24/17 11:45 (Glucagon Inj) 1 mg UNSCH PRN OTHER 02/24/17 11:45 (Vitamin D3) 5,000 units DAILY PO 02/25/17 09:00 03/07/17 08:23 (Imodium) 2 mg Q6H PRN PO 02/24/17 20:30 03/06/17 16:58 (Lasix) 40 mg DAILY PO 02/25/17 09:00 03/07/17 08:23 (Lotrisone Cream) 1 applic Q12HR TOPICAL 02/27/17 09:00 03/07/17 08:28 (Neurontin) 100 mg TID PO 02/28/17 13:00 03/07/17 08:23 (Pill Splitter) 1 ea UNSCH PRN OTHER 02/28/17 12:00 (Januvia) 25 mg DAILY PO 03/01/17 09:00 03/07/17 08:23 (NS Flush) UNSCH PRN IVF 03/01/17 10:15 Heparin Sodium (Porcine) UNSCH PRN IV FLUSH 03/01/17 10:15 (NS 1000 ml Inj) 1,000 ml @ 0 mls/hr Q0M PRN IV 03/01/17 11:39 03/07/17 13:21 Heparin Sodium (Porcine) 8000 units 8,000 units UNSCH PRN IVF 03/01/17 11:45 03/02/17 14:44 Sodium Chloride 1,000 ml @ 200 mls/hr Q5H PRN IV 03/01/17 11:39 (NS 1000 ml Inj) 1,000 ml @ 0 mls/hr Q0M PRN IV 03/01/17 11:39 (Mannitol Inj) 12.5 gm UNSCH PRN IV 03/01/17 11:45 (Albumin 25% Inj) 25 gm UNSCH PRN IV 03/01/17 11:45 (NS Flush) 5 ml UNSCH PRN IV FLUSH 03/01/17 11:45 (Heparin Inj) UNSCH PRN .XX 03/01/17 11:45 03/07/17 13:20 (Gentamicin (Dialysis) Inj) 20 mg UNSCH PRN IV 03/01/17 11:45 03/07/17 13:20 (Zofran Inj) 4 mg UNSCH PRN IV 03/01/17 11:45 (Tylenol) 650 mg UNSCH PRN PO 03/01/17 11:45 (Benadryl) 25 mg UNSCH PRN PO 03/01/17 11:45 (Nitrostat Sl) 0.4 mg UNSCH PRN SL 03/01/17 11:45 (Catapres) 0.1 mg UNSCH PRN PO 03/01/17 11:45 Gelatin 1 foam 1 foam UNSCH PRN TOP 03/01/17 11:45 (fentaNYL DRIP) 250 ml @ 0 mls/hr TITRATE IV 03/01/17 18:00 (Nephrocaps) 1 cap DAILY PO 03/03/17 09:00 03/07/17 08:25 (Levaquin) 250 mg Q48H PO 03/03/17 13:00 03/09/17 12:59 03/05/17 13:02 Amoxicillin/ Clavulanate Potassium 500 mg 500 mg Q12HR PO 03/03/17 20:00 03/08/17 23:00 03/07/17 08:23 (Coumadin Consult Pharmacy) 0 ml @ 0 mls/hr UNSCH OTHER 03/04/17 15:30 (Heparin Inj) 5,000 units Q12H SQ 03/05/17 18:00 03/07/17 05:36 (Coumadin) 3 mg DAILY@1600 PO 03/06/17 16:00 03/06/17 16:58 (Epogen Inj) 5,000 units UNSCH PRN IV 03/06/17 17:30 03/07/17 13:22 (Cozaar) 25 mg DAILY PO 03/08/17 09:00 (Coumadin) 2 mg ONCE PO 03/07/17 16:00 03/07/17 21:00 Vital Signs / I&O Vital Signs Date Time Temp Pulse Resp B/P Pulse Ox O2 Delivery O2 Flow Rate FiO2 03/07/17 08:52 95.2 75 20 157/86 95 03/07/17 08:39 Room Air 03/07/17 04:00 95.0 75 20 145/88 93 03/07/17 00:00 95.6 64 18 162/79 94 03/06/17 21:00 75 03/06/17 20:00 95.4 82 18 150/77 93 03/06/17 16:00 97.1 60 18 118/72 95 I/O 03/06/17 03/06/17 03/06/17 03/07/17 03/07/17 03/07/17 07:00 15:00 23:00 07:00 15:00 23:00 Intake Total 720 ml 400 ml 120 ml Output Total 300 ml 400 ml 550 ml Balance -300 ml 320 ml 400 ml -430 ml Intake Oral 720 ml 400 ml 120 ml Output Urine Total 300 ml 400 ml 550 ml # Bowel Movements 3 1 Physical Exam GENERAL: In NAD SKIN: Warm and dry. HEAD: Normocephalic. EYES: No scleral icterus. No injection or drainage. NECK: Supple, trachea midline. No JVD or lymphadenopathy. CARDIOVASCULAR: Irreg rhythm without murmurs, gallops, or rubs. RESPIRATORY: Breath sounds equal bilaterally. No accessory muscle use. GASTROINTESTINAL: Abdomen soft, non-tender, nondistended. MUSCULOSKELETAL: No cyanosis, or edema, s/p R AKA Laboratory Laboratory Tests Test 03/07/17 09:00 White Blood Count 10.7 TH/MM3 Red Blood Count 3.40 MIL/MM3 Hemoglobin 9.9 GM/DL Hematocrit 30.7 % Mean Corpuscular Volume 90.2 FL Mean Corpuscular Hemoglobin 29.0 PG Mean Corpuscular Hemoglobin 32.2 % Concent Red Cell Distribution Width 16.0 % Platelet Count 219 TH/MM3 Mean Platelet Volume 9.3 FL Neutrophils (%) (Auto) 80.5 % Lymphocytes (%) (Auto) 7.6 % Monocytes (%) (Auto) 7.4 % Eosinophils (%) (Auto) 2.7 % Basophils (%) (Auto) 1.8 % Neutrophils # (Auto) 8.6 TH/MM3 Lymphocytes # (Auto) 0.8 TH/MM3 Monocytes # (Auto) 0.8 TH/MM3 Eosinophils # (Auto) 0.3 TH/MM3 Basophils # (Auto) 0.2 TH/MM3 CBC Comment AUTO DIFF Differential Total Cells 100 Counted Neutrophils % (Manual) 84 % Band Neutrophils % 1 % Lymphocytes % 7 % Monocytes % 4 % Eosinophils % 1 % Basophils % 1 % Neutrophils # (Manual) 9.3 TH/MM3 Myelocytes 2 % Differential Comment FINAL DIFF MANUAL Platelet Estimate NORMAL Platelet Morphology Comment NORMAL Red Cell Morphology Comment NORMAL Prothrombin Time 13.6 SEC Prothromb Time International 1.2 RATIO Ratio Sodium Level 136 MEQ/L Potassium Level 3.7 MEQ/L Chloride Level 99 MEQ/L Carbon Dioxide Level 26.3 MEQ/L Anion Gap 11 MEQ/L Blood Urea Nitrogen 28 MG/DL Creatinine 4.54 MG/DL Estimat Glomerular Filtration 13 ML/MIN Rate Random Glucose 145 MG/DL Calcium Level 8.5 MG/DL Total Bilirubin 0.4 MG/DL Aspartate Amino Transf 21 U/L (AST/SGOT) Alanine Aminotransferase LESS THAN 6 U/L (ALT/SGPT) Alkaline Phosphatase 99 U/L Total Protein 6.2 GM/DL Albumin 1.8 GM/DL Imaging Last Impressions Central Venous Line 03/04/17 0000 Signed Impressions: Service Date/Time: Saturday, March 04, 2017 00:00 - CONCLUSION: Uncomplicated catheter removal. Maxime Ray MD Catheter Placement X-Ray 03/04/17 0000 Signed Impressions: Service Date/Time: Saturday, March 04, 2017 15:48 - CONCLUSION: Uncomplicated PermaCath placement as above. Maxime Ray MD Chest X-Ray 03/02/17 0600 Signed Impressions: Service Date/Time: Thursday, March 02, 2017 05:26 - CONCLUSION: Dense consolidation left lower lobe. Tubes and catheters are in good position. Gabriel Beavers MD Upper Extremity Ultrasound 03/02/17 0000 Signed Impressions: Service Date/Time: Thursday, March 02, 2017 21:15 - CONCLUSION: Superficial nonocclusive thrombus in the distal cephalic vein to the antecubital fossa. Gabriel Beavers MD Foot X-Ray 02/22/17 0000 Signed Impressions: Service Date/Time: Wednesday, February 22, 2017 17:46 - CONCLUSION: Soft tissues extensive soft tissue emphysema, mottled in appearance very concerning for infection with gas-forming organism. No obvious osseous destruction is seen to suggest osteomyelitis. Abhi Seo MD Assessment and Plan Problem List: (1) PVD (peripheral vascular disease) (2) Unilateral AKA (3) Atrial fibrillation (4) Coagulopathy (5) Acute renal failure superimposed on stage 4 chronic kidney disease (6) Diabetes (7) Hypertension Assessment and Plan A fib rate remains controlled. Continue current program. Tolerating dialysis well. Increase activity. Remains stable from cardiac standpoint. Anticipate discharge as planned. Problem Qualifiers (1) Unilateral AKA: Qualified Code: Z89.611 - Unilateral AKA, right (2) Diabetes: David Greenberg MD Mar 07, 2017 13:38
[2017-03-07] MEDS: INSULIN NovoLIN REGULAR SUPPLEMENTAL SCALE SQ SCH ×3 (14:24→21:27)
[2017-03-07] MEDS: LEVOFLOXACIN 250 MG TAB PO SCH (14:27)
[2017-03-07] MEDS ORDERED: WARFARIN SOD 2 MG TAB PO SCH (16:00)
[2017-03-07 16:52] VITALS: BP 133/65; PULSE 80; RESP 18; TEMP 95.1; O2SAT 96
[2017-03-07] MEDS: WARFARIN SOD 3 MG TAB PO SCH (17:27)
[2017-03-07] MEDS: LOPERAMIDE HCL 2 MG CAP PO PRN (17:33)
--- NOTE | 2017-03-07 20:11 | HHI.PR ---
Subjective Remarks YOWM with COPD, Hypercapnoic RF, s/p Right AKA Extubated, On NC Alert, awake, denies sob No Fever No new complaint Objective Vital Signs Vital Signs Date Time Temp Pulse Resp B/P Pulse Ox O2 Delivery O2 Flow Rate FiO2 03/07/17 16:52 95.1 80 18 133/65 96 03/07/17 08:52 95.2 75 20 157/86 95 03/07/17 08:39 Room Air 03/07/17 04:00 95.0 75 20 145/88 93 03/07/17 00:00 95.6 64 18 162/79 94 03/06/17 21:00 75 I/O 03/06/17 03/06/17 03/06/17 03/07/17 03/07/17 03/07/17 07:00 15:00 23:00 07:00 15:00 23:00 Intake Total 720 ml 400 ml 120 ml Output Total 300 ml 400 ml 550 ml 3000 ml Balance -300 ml 320 ml 400 ml -430 ml -3000 ml Intake Oral 720 ml 400 ml 120 ml Output Urine Total 300 ml 400 ml 550 ml Hemodialysis 3000 ml # Bowel Movements 3 1 1 Result Diagram: 03/07/17 0900 03/07/17 0900 Objective Remarks GENERAL: MBMN WM, on Vent SKIN: Warm and dry. HEAD: Normocephalic. EYES: No scleral icterus. No injection or drainage. NECK: Supple, trachea midline. No JVD or lymphadenopathy. CARDIOVASCULAR: Regular rate and rhythm without murmurs, gallops, or rubs. RESPIRATORY: Breath sounds equal bilaterally. No accessory muscle use. GASTROINTESTINAL: Abdomen soft, non-tender, nondistended. MUSCULOSKELETAL: No cyanosis, or edema. Right AKA BACK: Nontender without obvious deformity. No CVA tenderness. A/P Assessment and Plan COPD AF DM S/P Right AKA PLAN: Aerosol nebs Cont Abx Monitor BS Stable on RA DC plans underway for rehab. Ronny Sams MD Mar 07, 2017 20:11
[2017-03-07 21:00] VITALS: PULSE 53
[2017-03-07 21:10] VITALS: BP 114/69; PULSE 65; RESP 22; TEMP 96.3; O2SAT 96
[2017-03-07] MEDS: ATORVASTATIN 40 MG TAB PO SCH (21:27)
[2017-03-08 01:00] VITALS: BP 94/50; PULSE 56; RESP 21; TEMP 95.9; O2SAT 97
[2017-03-08 05:40] VITALS: BP 104/55; PULSE 60; RESP 18; TEMP 96.4; O2SAT 96
[2017-03-08] MEDS: LEVOTHYROXINE SODIUM 75 MCG TAB PO SCH (05:53)
[2017-03-08] MEDS: HEPARIN SODIUM - SQ 10,000 UNITS/ML VIAL SQ SCH (05:53)
[2017-03-08] MEDS: LEVOTHYROXINE SODIUM 100 MCG TAB PO SCH (05:53)
[2017-03-08] MEDS: INSULIN NovoLIN REGULAR SUPPLEMENTAL SCALE SQ SCH ×2 (05:54→11:01)
[2017-03-08 07:15] VITALS: PULSE 52
[2017-03-08 07:48] LABS: HEMATOCRIT 26.8 % (39.0-51.0); MEAN CELL VOLUME 89.2 FL (80.0-100.0); MEAN CORPUSCULAR HGB CONC 33.6 % (32.0-36.0); PLATELET COUNT 203 TH/MM3 (150-450); RED BLOOD COUNT 3.01 MIL/MM3 (4.50-5.90); RED CELL DISTRIBUTION WIDTH 16.4 % (11.6-17.2); REVIEW FLAG FINAL; WHITE BLOOD COUNT 10.6 TH/MM3 (4.0-11.0)
[2017-03-08 07:52] LABS: INTERNATIONAL NORMALIZED RATIO 1.3 RATIO
[2017-03-08] MEDS: FUROSEMIDE 40 MG TAB PO SCH (08:11)
[2017-03-08] MEDS: CHOLECALCIFEROL (VIT D3) 5000 UNIT CAP PO SCH (08:11)
[2017-03-08] MEDS: AMOXICILLIN/CLAVULANATE K 500 MG TAB PO SCH (08:11)
[2017-03-08] MEDS: DILTIAZEM-CD 240 MG CAP ER PO SCH (08:11)
[2017-03-08] MEDS: GABAPENTIN 100 MG CAP PO SCH ×2 (08:11→12:21)
[2017-03-08] MEDS: VITAMIN B CMPLX/VITC/FOLIC AC CAP PO SCH (08:11)
[2017-03-08] MEDS: PANTOPRAZOLE SOD 40 MG DELAYED RELEASE TAB PO SCH (08:11)
[2017-03-08] MEDS: SODIUM CHLORIDE 0.9% FLUSH 10 ML FLUSH IV FLUSH SCH (08:12)
[2017-03-08] MEDS: ATENOLOL 100 MG TAB PO SCH (08:12)
[2017-03-08] MEDS: cloNIDine HCL 0.1 MG TAB PO SCH (08:12)
[2017-03-08 08:13] LABS: BICARBONATE 29.6 MEQ/L (21.0-32.0); POTASSIUM 3.8 MEQ/L (3.5-5.1)
[2017-03-08] MEDS: BETAMETHASONE/CLOTRIMAZOLE CREAM 15 GM TOPICAL SCH (08:13)
[2017-03-08 08:19] VITALS: BP 113/58; PULSE 54; RESP 20; TEMP 96.5; O2SAT 96
[2017-03-08] MEDS ORDERED: SODIUM PHOSPHATE INJ 15 MMOL in SODIUM CHLORIDE 0.9% INJ 150 ML IV ONE (09:00)
[2017-03-08] MEDS ORDERED: LOSARTAN 25 MG TAB PO SCH (09:00)
--- NOTE | 2017-03-08 09:01 | HHI.DS ---
Discharge Summary Admission Date Feb 22, 2017 at 17:50 Admitting Diagnosis sepsis, right lower extremity gangrene Procedures 02/23 BKA of right leg 02/25 AKA r leg Brief History Patient is a 71-year-old male with history of atrial fibrillation, and poorly controlled diabetes who presents the emergency department with complaint of generalized weakness. Patient has apparently had a wound on the right foot for a reported 3-4 years. Per asphalt mixer patient has evidence of gangrene and will need evaluation for possible amputation, osteomyelitis, etc. Patient is nonambulatory at baseline. Denies any fevers or chills documented. CBC/BMP: 03/08/17 0635 03/08/17 0635 Significant Findings Laboratory Tests Test 03/06/17 03/07/17 03/08/17 06:13 09:00 06:35 White Blood Count 11.1 TH/MM3 (4.0-11.0) Red Blood Count 3.18 MIL/MM3 3.40 MIL/MM3 3.01 MIL/MM3 (4.50-5.90) (4.50-5.90) (4.50-5.90) Hemoglobin 9.5 GM/DL 9.9 GM/DL 9.0 GM/DL (13.0-17.0) (13.0-17.0) (13.0-17.0) Hematocrit 28.4 % 30.7 % 26.8 % (39.0-51.0) (39.0-51.0) (39.0-51.0) Neutrophils (%) (Auto) 82.8 % 80.5 % (16.0-70.0) (16.0-70.0) Lymphocytes (%) (Auto) 5.5 % 7.6 % (9.0-44.0) (9.0-44.0) Monocytes (%) (Auto) 8.6 % (0.0-8.0) Neutrophils # (Auto) 9.2 TH/MM3 8.6 TH/MM3 (1.8-7.7) (1.8-7.7) Lymphocytes # (Auto) 0.6 TH/MM3 0.8 TH/MM3 (1.0-4.8) (1.0-4.8) Monocytes # (Auto) 1.0 TH/MM3 (0-0.9) Prothrombin Time 14.6 SEC 13.6 SEC 15.0 SEC (9.8-11.6) (9.8-11.6) (9.8-11.6) Blood Urea Nitrogen 25 MG/DL (7-18) 28 MG/DL (7-18) 25 MG/DL (7-18) Creatinine 4.07 MG/DL 4.54 MG/DL 3.76 MG/DL (0.60-1.30) (0.60-1.30) (0.60-1.30) Estimat Glomerular Filtration 15 ML/MIN (>89) 13 ML/MIN (>89) 16 ML/MIN (>89) Rate Random Glucose 151 MG/DL 145 MG/DL 186 MG/DL (74-106) (74-106) (74-106) Calcium Level 8.0 MG/DL 8.0 MG/DL (8.5-10.1) (8.5-10.1) Neutrophils % (Manual) 84 % (16-70) Lymphocytes % 7 % (9-44) Neutrophils # (Manual) 9.3 TH/MM3 (1.8-7.7) Myelocytes 2 % (0-0) Alanine Aminotransferase LESS THAN 6 (ALT/SGPT) U/L (12-78) Total Protein 6.2 GM/DL (6.4-8.2) Albumin 1.8 GM/DL 1.7 GM/DL (3.4-5.0) (3.4-5.0) Sodium Level 134 MEQ/L (136-145) Chloride Level 96 MEQ/L (98-107) Phosphorus Level 1.9 MG/DL (2.5-4.9) PE at Discharge GENERAL: cooperative SKIN: Warm and dry. Discoloration in lower extremity HEAD: Normocephalic. EYES: No scleral icterus. No injection or drainage. NECK: Supple, trachea midline. No JVD or lymphadenopathy. CARDIOVASCULAR: Regular rate and rhythm without murmurs, gallops, or rubs. RESPIRATORY: Breath sounds equal bilaterally. No accessory muscle use. Intubated GASTROINTESTINAL: Abdomen soft, non-tender, nondistended. MUSCULOSKELETAL: No cyanosis, or edema. Status post right AKA. Dressing on BACK: Nontender without obvious deformity. No CVA tenderness. Hospital Course Patient is a 71-year-old male with history of atrial fibrillation, and poorly controlled diabetes who presents the emergency department with complaint of generalized weakness. Patient has apparently had a wound on the right foot for a reported 3-4 years. Per asphalt mixer patient has evidence of gangrene and will need evaluation for possible amputation, osteomyelitis, etc. Patient is nonambulatory at baseline. Pateint was admitted with coagulopathy with INR greater than 14.5, renal failure, and sepsis with a WBC 37.7. Patient had a right BKA on 02/24 and tolerated well. On 02/28 had a AKA. His hospital course was also complicated by CHF and respiratory insufficiency needing to be ventilated. He was also started on dialysis and had a perma cath placed. Dialysis on MWF. He is on room air now and breathing easily Plan is to discharge to [facility] awaiting acceptance. Continues to be stable for discharge. Pt Condition on Discharge: Good Discharge Disposition: Rehab Inpatient Discharge Instructions DIET: Follow Instructions for: Diabetic Diet Speech Therapy-Diet Recommenda: Regular Activities you can perform: Regular-No Restrictions New Medications: Amoxicillin-Clavulanate (Augmentin) 500-125 mg Tab 500 MG PO Q12HR Infection #4 TAB Atenolol (Atenolol) 100 Mg Tab 100 MG PO BID Blood Pressure Management #60 TAB Atorvastatin (Atorvastatin) 40 Mg Tab 40 MG PO HS Cholesterol Management #30 TAB Cholecalciferol (Vitamin D3) 5,000 Unit Cap 5000 UNITS PO DAILY Electrolyte Replacement #30 CAP Clonidine (Catapres) 0.1 Mg Tab 0.1 MG PO BID Blood Pressure Management #60 TAB Diltiazem CD 24 HR (Cardizem CD 24 HR) 240 Mg Caper 240 MG PO DAILY Blood Pressure Management #30 CAP Furosemide (Furosemide) 40 Mg Tab 40 MG PO DAILY Blood Pressure Management #30 TAB Gabapentin (Gabapentin) 100 Mg Cap 100 MG PO TID Pain Management #90 CAP Heparin Sodium (Porcine) (Heparin Sodium) 10,000 Unit/Ml Inj 5000 UNITS SQ Q12H Blood Clot Prevention #30 INJECTION Levofloxacin (Levaquin) 250 Mg Tab 250 MG PO Q48H Infection #2 TAB Levothyroxine (Synthroid) 100 Mcg Tab 100 MCG PO DAILY@06 Thyroid #30 TAB Levothyroxine (Synthroid) 75 Mcg Tab 75 MCG PO DAILY@06 Thyroid #30 TAB Pantoprazole (Pantoprazole) 40 Mg Tab 40 MG PO DAILY Reflux #30 TAB Sitagliptin (Januvia) 25 Mg Tab 25 MG PO DAILY Blood Sugar Management #30 TAB Vitamin B Cmplx/Vit C/Folic AC (Nephro-Courtney Rx) 1 Tab 1 CAP PO DAILY Electrolyte Replacement #30 TAB Warfarin (Coumadin) 3 Mg Tab 3 MG PO DAILY@1600 Blood Clot Prevention #30 TAB Discontinued Medications: Atenolol (Atenolol) 100 Mg Tab 100 MG PO BID Blood Pressure Management #60 Ref 0 TAB Atorvastatin (Atorvastatin) 40 Mg Tab 40 MG PO HS Cholesterol Management #30 Ref 0 TAB Cholecalciferol (Vitamin D) 400 Unit Tab DAILY Clonidine (Clonidine) 0.1 Mg Tab 0.1 MG PO BID Blood Pressure Management #60 Ref 0 TAB Diltiazem CD 24 HR (Diltiazem CD 24 HR) 240 Mg Caper 240 MG PO DAILY #30 Ref [address] (Nexium) 40 Mg Capdr 40 MG PO DAILY Ref 0 CAP Levothyroxine (Levothyroxine) 175 Mcg Tab 175 MCG PO DAILY Thyroid #30 Ref 0 TAB Sitagliptin (Januvia) 50 Mg Tab 50 MG PO DAILY Blood Sugar Management #30 Ref 0 TAB Sodium Bicarbonate (Sodium Bicarbonate) 650 Mg Tab 650 MG PO TIDPC #90 Ref 0 TAB Cherie Loyd Mar 08, 2017 09:01
--- NOTE | 2017-03-08 11:27 | HHI.NPPN ---
Subjective History of Present Illness This patient is a 71-year-old male with a history of long-standing diabetes mellitus and hypertension as well as chronic kidney disease known to me from the office, approaching end-stage renal disease. 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 Patient did have an AV dialysis shunt placed in preparation for dialysis unfortunately access failed. Is on sodium bicarbonate chronically for metabolic acidosis. There has been concern regarding nutritional status recently. Interval History Patient with no verbal complaints. by bedside. Review of Systems General General Remarks No verbal complaints. Objective Data Data 03/07/17 03/08/17 19:00 07:00 Output Total 3000 ml 400 ml Balance -3000 ml -400 ml Output Urine Total 400 ml Hemodialysis 3000 ml # Bowel Movements 1 1 Vital Signs Date Time Temp Pulse Resp B/P Pulse Ox O2 Delivery O2 Flow Rate FiO2 03/08/17 08:19 96.5 54 20 113/58 96 03/08/17 08:00 Room Air 03/08/17 07:15 52 03/08/17 05:40 96.4 60 18 104/55 96 03/08/17 01:00 95.9 56 21 94/50 97 03/07/17 21:10 96.3 65 22 114/69 96 03/07/17 21:00 53 03/07/17 16:52 95.1 80 18 133/65 96 -: 03/08/17 0635 03/08/17 0635 Tubes & Lines: Perma-Cath Physical Exam General Appearance: No Acute Distress Appearance Remarks More alert Eyes Eye Exam: Sclera White Pulmonary Resp Exam: Clear Bilaterally, Breath Sounds Equal, No Distress Cardiology CV Exam: Regular, Normal Sinus Rhythm Gastrointestinal/Abdomen GI Exam: Soft, Non-Tender Integumentary Skin Exam: Clear, Warm Extremeties Extremities Exam: No Edema Neurologic Neuro Exam: Alert, Awake, Oriented Psychiatric Psych Exam: Appropriate Responses Assessment/Plan Discussed Condition With: Patient, Spouse Problem List: (1) CKD (chronic kidney disease) stage 4, GFR 15-29 ml/min Plan: Access appears to be working well. Continue on Tuesday schedule. Previous failed access right upper extremity. Patient to follow-up with Dr. Leonard at a later date regarding options. The patient is transferred to the [facility] nephrology care there will have to be provided by another scale assembly set up worker with privileges there. Patient indicated that he will return to my care post discharge from that facility. Medications should be adjusted for the patient's ESRD. Avoid gadolinium. (2) Diabetes Plan: Management per primary care physician. (3) Hypertension Plan: Start on Losartan 25mg QD for better BP control (4) Vitamin D deficiency Plan: Vitamin D as ordered. (5) Malnutrition Plan: Continue dietary supplements. Noted that phosphate level is slightly low however would avoid IV phosphorus in patient with end-stage renal disease unless below 1.0. Supplement orally. Nutritional intake needs to be improved as discussed with patient. Avoid "renal diet" for the present to try and encourage nutritional intake.. Plan The exam, history, and the medical decision-making described in the above note were completed with the assistance of the ALFRED. I reviewed and agree with the findings presented. Problem Qualifiers (1) Diabetes: Jeremiah Hagan MD Mar 08, 2017 11:26
[2017-03-08] MEDS ORDERED: POTASSIUM PHOSPHATE/SODIUM PHOSPHATE 250 MG TAB PO SCH (11:30)
--- NOTE | 2017-03-08 14:25 | PD.CAR.PN ---
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 Thanks J 02/23/17 Appreciate 's evaluation and second opinion. Completely agree. Will take patient to OR for staged surgeries. BKA today, followed by AKA Tuesday or Tuesday. PT/INR consistent with coagulopathy and sepsis superimposed on Coumadintherapy Receiving FFP now Will give K centra if needed after FFP transfused. PT/INR at noon 02/24/17 Patient post staged R leg BK amputation for gangrene uf the foot and sepsis. Patient improved greatly since yesterday. For second stage surgery (R AKA) tomorrow. Agree with transfusion and will check PT/INR in am 02/26/2017 Status post right staged amputation and BKA followed by MICHAEL Dressing intact Patient resting comfortably We will leave original dressing on until Tuesday and then change it Patient has some phantom pain today and may need some Neurontin or equivalent 02/28/17 R AKA stump dry, incision clean Change dressing daily Stiches will remain in place for 3 weeks total Patient can be transferred to rehab/SNF from my point any time 03/01/17 Patient end up in the ICU throughout the night due to congestive failure and respiratory insufficiency but this is not improved Right AKA stump is clean and dry and healing nicely Nothing to add to care from surgical vascular point 03/02/17 Right AKA stump is clean and dry well-perfused Nothing to add to care Stitches will stay in about total of 3 weeks 03/06/17 Stump clean and dry Nothing to add to care Awaiting transfer to rehabilitation 03/08/17 Stump clean and dry healing well Stitches to remain total of 3-4 weeks and then to be removed Patient can be discharged from my point anytime Objective: Vital Signs Date Time Temp Pulse Resp B/P Pulse Ox O2 Delivery O2 Flow Rate FiO2 03/08/17 08:19 96.5 54 20 113/58 96 03/08/17 08:00 Room Air 03/08/17 07:15 52 03/08/17 05:40 96.4 60 18 104/55 96 03/08/17 01:00 95.9 56 21 94/50 97 03/07/17 21:10 96.3 65 22 114/69 96 03/07/17 21:00 53 03/07/17 16:52 95.1 80 18 133/65 96 Labs: Laboratory Tests Test 03/08/17 06:35 White Blood Count 10.6 TH/MM3 (4.0-11.0) Red Blood Count 3.01 MIL/MM3 (4.50-5.90) Hemoglobin 9.0 GM/DL (13.0-17.0) Hematocrit 26.8 % (39.0-51.0) Mean Corpuscular Volume 89.2 FL (80.0-100.0) Mean Corpuscular Hemoglobin 30.0 PG (27.0-34.0) Mean Corpuscular Hemoglobin 33.6 % Concent (32.0-36.0) Red Cell Distribution Width 16.4 % (11.6-17.2) Platelet Count 203 TH/MM3 (150-450) Mean Platelet Volume 10.2 FL (7.0-11.0) Prothrombin Time 15.0 SEC (9.8-11.6) Prothromb Time International 1.3 RATIO Ratio Sodium Level 134 MEQ/L (136-145) Potassium Level 3.8 MEQ/L (3.5-5.1) Chloride Level 96 MEQ/L (98-107) Carbon Dioxide Level 29.6 MEQ/L (21.0-32.0) Anion Gap 8 MEQ/L (5-15) Blood Urea Nitrogen 25 MG/DL (7-18) Creatinine 3.76 MG/DL (0.60-1.30) Estimat Glomerular Filtration 16 ML/MIN (>89) Rate Random Glucose 186 MG/DL (74-106) Calcium Level 8.0 MG/DL (8.5-10.1) Phosphorus Level 1.9 MG/DL (2.5-4.9) Albumin 1.7 GM/DL (3.4-5.0) Result Diagram: 03/08/17 0635 03/08/17 0635 (1) PVD (peripheral vascular disease) (2) Unilateral AKA (3) Atrial fibrillation (4) Coagulopathy (5) Acute renal failure superimposed on stage 4 chronic kidney disease (6) Diabetes (7) Hypertension Problem Qualifiers (1) Unilateral AKA: Qualified Code: Z89.611 - Unilateral AKA, right (2) Diabetes: Jeovany Ernst MD Mar 08, 2017 14:25
--- NOTE | 2017-03-08 14:33 | PD.CARD.PN ---
Subjective Subjective Remarks No CP or SOB, feels fine Objective Medications Current Medications Medications (Trade) Dose Ordered Sig/Libia Route Start Time Stop Time Status Last Admin (NS Flush) 2 ml UNSCH PRN IV FLUSH 02/22/17 18:15 (NS Flush) 2 ml BID IV FLUSH 02/22/17 21:00 03/08/17 08:12 (Zofran Inj) 4 mg Q6H PRN IVP 02/22/17 18:15 (Narcan Inj) 0.4 mg UNSCH PRN IV 02/22/17 18:15 (Hortense 10-325 Mg) 1 tab Q4H PRN PO 02/22/17 18:15 03/04/17 20:37 (Tenormin) 100 mg BID PO 02/22/17 21:00 03/07/17 21:27 (Lipitor) 40 mg HS PO 02/22/17 21:00 03/07/17 21:27 (Catapres) 0.1 mg BID PO 02/22/17 21:00 03/07/17 08:24 (Cardizem Cd) 240 mg DAILY PO 02/23/17 09:00 03/08/17 08:11 (Protonix) 40 mg DAILY PO 02/23/17 09:00 03/08/17 08:11 (Synthroid) 100 mcg DAILY@06 PO 02/23/17 06:00 03/08/17 05:53 (Synthroid) 75 mcg DAILY@06 PO 02/23/17 06:00 03/08/17 05:53 (D50w (Vial) Inj) 25 ml UNSCH PRN IV PUSH 02/24/17 11:45 (Glucagon Inj) 1 mg UNSCH PRN OTHER 02/24/17 11:45 (Vitamin D3) 5,000 units DAILY PO 02/25/17 09:00 03/08/17 08:11 (Imodium) 2 mg Q6H PRN PO 02/24/17 20:30 03/07/17 17:33 (Lasix) 40 mg DAILY PO 02/25/17 09:00 03/08/17 08:11 (Lotrisone Cream) 1 applic Q12HR TOPICAL 02/27/17 09:00 03/08/17 08:13 (Neurontin) 100 mg TID PO 02/28/17 13:00 03/08/17 12:21 (Pill Splitter) 1 ea UNSCH PRN OTHER 02/28/17 12:00 (Januvia) 25 mg DAILY PO 03/01/17 09:00 03/08/17 08:11 (NS Flush) UNSCH PRN IVF 03/01/17 10:15 Heparin Sodium (Porcine) UNSCH PRN IV FLUSH 03/01/17 10:15 (NS 1000 ml Inj) 1,000 ml @ 0 mls/hr Q0M PRN IV 03/01/17 11:39 03/07/17 13:21 Heparin Sodium (Porcine) 8000 units 8,000 units UNSCH PRN IVF 03/01/17 11:45 03/02/17 14:44 Sodium Chloride 1,000 ml @ 200 mls/hr Q5H PRN IV 03/01/17 11:39 (NS 1000 ml Inj) 1,000 ml @ 0 mls/hr Q0M PRN IV 03/01/17 11:39 (Mannitol Inj) 12.5 gm UNSCH PRN IV 03/01/17 11:45 (Albumin 25% Inj) 25 gm UNSCH PRN IV 03/01/17 11:45 (NS Flush) 5 ml UNSCH PRN IV FLUSH 03/01/17 11:45 (Heparin Inj) UNSCH PRN .XX 03/01/17 11:45 03/07/17 13:20 (Gentamicin (Dialysis) Inj) 20 mg UNSCH PRN IV 03/01/17 11:45 03/07/17 13:20 (Zofran Inj) 4 mg UNSCH PRN IV 03/01/17 11:45 (Tylenol) 650 mg UNSCH PRN PO 03/01/17 11:45 (Benadryl) 25 mg UNSCH PRN PO 03/01/17 11:45 (Nitrostat Sl) 0.4 mg UNSCH PRN SL 03/01/17 11:45 (Catapres) 0.1 mg UNSCH PRN PO 03/01/17 11:45 Gelatin 1 foam 1 foam UNSCH PRN TOP 03/01/17 11:45 (fentaNYL DRIP) 250 ml @ 0 mls/hr TITRATE IV 03/01/17 18:00 (Nephrocaps) 1 cap DAILY PO 03/03/17 09:00 03/08/17 08:11 (Levaquin) 250 mg Q48H PO 03/03/17 13:00 03/09/17 12:59 03/07/17 14:27 Amoxicillin/ Clavulanate Potassium 500 mg 500 mg Q12HR PO 03/03/17 20:00 03/08/17 23:00 03/08/17 08:11 (Coumadin Consult Pharmacy) 0 ml @ 0 mls/hr UNSCH OTHER 03/04/17 15:30 (Heparin Inj) 5,000 units Q12H SQ 03/05/17 18:00 03/08/17 05:53 (Coumadin) 3 mg DAILY@1600 PO 03/06/17 16:00 03/07/17 17:27 (Epogen Inj) 5,000 units UNSCH PRN IV 03/06/17 17:30 03/07/17 13:22 (Cozaar) 25 mg DAILY PO 03/08/17 09:00 03/08/17 08:11 (Coumadin) 2 mg ONCE PO 03/08/17 16:00 03/08/17 21:00 (K-Phos Neutral) 250 mg BID PO 03/08/17 11:30 03/09/17 06:00 03/08/17 12:21 Vital Signs / I&O Vital Signs Date Time Temp Pulse Resp B/P Pulse Ox O2 Delivery O2 Flow Rate FiO2 03/08/17 08:19 96.5 54 20 113/58 96 03/08/17 08:00 Room Air 03/08/17 07:15 52 03/08/17 05:40 96.4 60 18 104/55 96 03/08/17 01:00 95.9 56 21 94/50 97 03/07/17 21:10 96.3 65 22 114/69 96 03/07/17 21:00 53 03/07/17 16:52 95.1 80 18 133/65 96 I/O 03/07/17 03/07/17 03/07/17 03/08/17 03/08/17 03/08/17 07:00 15:00 23:00 07:00 15:00 23:00 Intake Total 120 ml 480 ml Output Total 550 ml 3000 ml 400 ml Balance -430 ml -3000 ml -400 ml 480 ml Intake Oral 120 ml 480 ml Output Urine Total 550 ml 400 ml Hemodialysis 3000 ml # Bowel Movements 1 1 1 1 Physical Exam GENERAL: In NAD SKIN: Warm and dry. HEAD: Normocephalic. EYES: No scleral icterus. No injection or drainage. NECK: Supple, trachea midline. No JVD or lymphadenopathy. CARDIOVASCULAR: Irreg rhythm without murmurs, gallops, or rubs. RESPIRATORY: Breath sounds equal bilaterally. No accessory muscle use. GASTROINTESTINAL: Abdomen soft, non-tender, nondistended. MUSCULOSKELETAL: No cyanosis, or edema, s/p R AKA Laboratory Laboratory Tests Test 03/08/17 06:35 White Blood Count 10.6 TH/MM3 Red Blood Count 3.01 MIL/MM3 Hemoglobin 9.0 GM/DL Hematocrit 26.8 % Mean Corpuscular Volume 89.2 FL Mean Corpuscular Hemoglobin 30.0 PG Mean Corpuscular Hemoglobin 33.6 % Concent Red Cell Distribution Width 16.4 % Platelet Count 203 TH/MM3 Mean Platelet Volume 10.2 FL Prothrombin Time 15.0 SEC Prothromb Time International 1.3 RATIO Ratio Sodium Level 134 MEQ/L Potassium Level 3.8 MEQ/L Chloride Level 96 MEQ/L Carbon Dioxide Level 29.6 MEQ/L Anion Gap 8 MEQ/L Blood Urea Nitrogen 25 MG/DL Creatinine 3.76 MG/DL Estimat Glomerular Filtration 16 ML/MIN Rate Random Glucose 186 MG/DL Calcium Level 8.0 MG/DL Phosphorus Level 1.9 MG/DL Albumin 1.7 GM/DL Imaging Last Impressions Central Venous Line 03/04/17 0000 Signed Impressions: Service Date/Time: Saturday, March 04, 2017 00:00 - CONCLUSION: Uncomplicated catheter removal. Maxime Ray MD Catheter Placement X-Ray 03/04/17 0000 Signed Impressions: Service Date/Time: Saturday, March 04, 2017 15:48 - CONCLUSION: Uncomplicated PermaCath placement as above. Maxime Ray MD Chest X-Ray 03/02/17 0600 Signed Impressions: Service Date/Time: Thursday, March 02, 2017 05:26 - CONCLUSION: Dense consolidation left lower lobe. Tubes and catheters are in good position. Gabriel Beavers MD Upper Extremity Ultrasound 03/02/17 0000 Signed Impressions: Service Date/Time: Thursday, March 02, 2017 21:15 - CONCLUSION: Superficial nonocclusive thrombus in the distal cephalic vein to the antecubital fossa. Gabriel Beavers MD Foot X-Ray 02/22/17 0000 Signed Impressions: Service Date/Time: Wednesday, February 22, 2017 17:46 - CONCLUSION: Soft tissues extensive soft tissue emphysema, mottled in appearance very concerning for infection with gas-forming organism. No obvious osseous destruction is seen to suggest osteomyelitis. Abhi Seo MD Assessment and Plan Problem List: (1) PVD (peripheral vascular disease) (2) Unilateral AKA (3) Atrial fibrillation (4) Coagulopathy (5) Acute renal failure superimposed on stage 4 chronic kidney disease (6) Diabetes (7) Hypertension Assessment and Plan No new cardiac issues. Continue a fib rate control. Tolerating dialysis well. Increase activity. Remains stable from cardiac standpoint. Anticipate discharge as planned. Problem Qualifiers (1) Unilateral AKA: Qualified Code: Z89.611 - Unilateral AKA, right (2) Diabetes: David Greenberg MD Mar 08, 2017 14:33
[2017-03-08] MEDS ORDERED: WARFARIN SOD 2 MG TAB PO SCH (16:00)
== END 2017-03-08 14:27 | DRG 853 ==
LOC: NEPC 16:11 → NEDH 17:50 → N07A 20:12 → N03A 02-28 21:24 → N05A 03-04 00:19
PROVIDERS: ADMIT Family Medicine; ATTEND Family Medicine
PROC: 0Y6H0Z3 Detachment at Right Lower Leg, Low, Open Approach (ICD-10-PCS; 2017-02-23)
PROC: 30233K1 Transfusion of Nonautologous Frozen Plasma into Peripheral Vein, Percutaneous Approach (ICD-10-PCS; 2017-02-23)
PROC: 30233N1 Transfusion of Nonautologous Red Blood Cells into Peripheral Vein, Percutaneous Approach (ICD-10-PCS; 2017-02-24)
PROC: 0Y6C0Z3 Detachment at Right Upper Leg, Low, Open Approach (ICD-10-PCS; principal; 2017-02-25 12:23)
PROC: 5A1945Z Respiratory Ventilation, 24-96 Consecutive Hours (ICD-10-PCS; 2017-02-28)
PROC: 0BH17EZ Insertion of Endotracheal Airway into Trachea, Via Natural or Artificial Opening (ICD-10-PCS; 2017-02-28)
PROC: 02HV33Z Insertion of Infusion Device into Superior Vena Cava, Percutaneous Approach (ICD-10-PCS; 2017-02-28)
PROC: B5181ZA Fluoroscopy of Superior Vena Cava using Low Osmolar Contrast, Guidance (ICD-10-PCS; 2017-02-28)
PROC: 5A1D60Z (ICD-10-PCS; 2017-03-01)
PROC: 02HV33Z Insertion of Infusion Device into Superior Vena Cava, Percutaneous Approach (ICD-10-PCS; 2017-03-01)
PROC: B544ZZA Ultrasonography of Left Jugular Veins, Guidance (ICD-10-PCS; 2017-03-01)
PROC: 05HM33Z Insertion of Infusion Device into Right Internal Jugular Vein, Percutaneous Approach (ICD-10-PCS; 2017-03-04)
PROC: B543ZZA Ultrasonography of Right Jugular Veins, Guidance (ICD-10-PCS; 2017-03-04)
PROC: B513ZZA Fluoroscopy of Right Jugular Veins, Guidance (ICD-10-PCS; 2017-03-04)
DX: A41.59 Other Gram-negative sepsis (principal); J96.02 Acute respiratory failure with hypercapnia; D65 Disseminated intravascular coagulation [defibrination syndrome]; N17.9 Acute kidney failure, unspecified; I13.2 Hypertensive heart and chronic kidney disease with heart failure and with stage 5 chronic kidney disease, or end stage renal disease; E11.52 Type 2 diabetes mellitus with diabetic peripheral angiopathy with gangrene; E46 Unspecified protein-calorie malnutrition; I48.91 Unspecified atrial fibrillation; D62 Acute posthemorrhagic anemia; N18.6 End stage renal disease; A04.7 Enterocolitis due to Clostridium difficile; E87.2 Acidosis; T82.510A Breakdown (mechanical) of surgically created arteriovenous fistula, initial encounter; N25.81 Secondary hyperparathyroidism of renal origin; I82.611 Acute embolism and thrombosis of superficial veins of right upper extremity; E11.21 Type 2 diabetes mellitus with diabetic nephropathy; I50.9 Heart failure, unspecified; G54.6 Phantom limb syndrome with pain; J44.9 Chronic obstructive pulmonary disease, unspecified; E86.0 Dehydration; E78.5 Hyperlipidemia, unspecified; K21.9 Gastro-esophageal reflux disease without esophagitis; E11.22 Type 2 diabetes mellitus with diabetic chronic kidney disease; E03.9 Hypothyroidism, unspecified; T60.3X Toxic effect of herbicides and fungicides; E87.5 Hyperkalemia; E55.9 Vitamin D deficiency, unspecified; I87.8 Other specified disorders of veins; A41.81 Sepsis due to Enterococcus; R21 Rash and other nonspecific skin eruption; E56.1 Deficiency of vitamin K; E87.6 Hypokalemia; F17.210 Nicotine dependence, cigarettes, uncomplicated; Y71.2 Prosthetic and other implants, materials and accessory cardiovascular devices associated with adverse incidents; Z57.5 Occupational exposure to toxic agents in other industries; Z74.01 Bed confinement status; Z79.84 Long term (current) use of oral hypoglycemic drugs; Z91.19 Patient's noncompliance with other medical treatment and regimen
CPT/HCPCS: 31500; 36430; 36556; 36558; 36600; 71010; 73630; 76937; 76942; 77001; 80048; 80053; 80069; 80202; 82306; 82728; 82805; 82948; 83540; 83550; 83605; 83735; 84100; 84443; 85007; 85025; 85027; 85384; 85610; 85730; 86850; 86900; 86901; 86920; 86927; 87040; 87070; 87077; 87185; 87186; 87205; 87493; 87641; 88307; 88311; 90935; 93005; 93971; 94002; 94003; 94150; 94640; 96374; 96375; 99152; 99291; C1750; C1769; J0690; J1170; J1450; J1580; J1644; J1815; J1940; J1956; J2250; J2270; J2405; J2543; J2710; J2997; J3010; J3370; J7030; J7050; J7120; P9016; P9017; Q4081

== ENCOUNTER 2017-07-15 11:47 | Inpatient (IN) | payer MEDICARE, OTHER ==
[~2017-07-15] VITALS: Ht 190.5 cm; Wt 75.0 kg
[~2017-07-15 11:47] MED LIST changes: +CARD240C6 PO; +CHOL5000 PO; +CLON.1 PO; -CLON0.1T PO; +COUM3TAB PO; -DILT-64 PO; -FURO20TA PO; +GABA100C4 PO; -GLIP5TAB8 PO; +HEPA10003 SQ; -JANT2.5T PO; +LEVA250T14 PO; +LEVO.075 PO; +LEVO.1 PO; -LEVO175T2 PO; -LEVO50TA4 PO; +NEPHRO PO; -NEXI40CA PO; +PANT40TA3 PO; +SITA25 PO; -SITA50 PO; -SODI650T PO; -VITA400T2; +[UNRECOGNIZED DRUG - CODE] TOPICAL
[2017-07-15 12:31] VITALS: BP 169/90; PULSE 98; RESP 17; TEMP 98.2; O2SAT 98
[2017-07-15 12:45] VITALS: RESP 18; O2SAT 98
[2017-07-15] MEDS ORDERED: PIPERACIL-TAZO 2.25 GM PREMIX 50 ML IV ONE (12:45)
--- NOTE | 2017-07-15 13:01 | PD ---
HPI Chief Complaint: Skin Problem Time Seen by Provider: 12:33 Travel History International Travel<30 days: No Contact w/Intl Traveler<30days: No Traveled to known affect area: No History of Present Illness HPI 71-year-old male that presents to the ED for evaluation of leg one to the left leg. Patient was seen by artillery specialist as well as Dr. Tinoco today and was told to come here to get evaluated for likely amputation of the leg. Patient has a history of diabetes with gangrene to the right leg which she had to have amputated area this year. Patient denies any complaints from the right leg. He states that he's been having this wounds on his left leg for the past 3 weeks. He is being given antibiotics through his dialysis Center as well as by mouth antibiotics but he is not sure what he takes. He apparently was sent here today by Dr. Tinoco for evaluation of the wounds that he wanted vascular surgeon to be consulted for likely surgery. Patient denies any fevers chills or sweats. He does have a history of diabetes as well as ESRD having had dialysis every Tuesday and Tuesday. No allergies to medication. States having no pain. No obvious injury to the like that he can tell. PFSH Past Medical History Hx Anticoagulant Therapy: Yes (WARFARIN) Arthritis: No Asthma: No Atrial Fibrillation: Yes Autoimmune Disease: No Anxiety: No Depression: No Heart Rhythm Problems: No Cancer: No Cardiovascular Problems: Yes (A-FIB) High Cholesterol: No Chemotherapy: No Chest Pain: No Congestive Heart Failure: No COPD: No Cerebrovascular Accident: No Diabetes: Yes Patient Takes Glucophage: No Diminished Hearing: Yes Endocrine: No GERD: Yes Genitourinary: Yes (ESRD IN HEMODYALISIS) Hiatal Hernia: No Hypertension: Yes Immune Disorder: No Implanted Vascular Access Dvce: Yes (FISTULA RIGHT ARM) Kidney Stones: No Musculoskeletal: Yes Neurologic: No Psychiatric: No Reproductive: No Respiratory: No Immunizations Current: No Migraines: No Radiation Therapy: No Renal Failure: Yes (STAGE 5) Seizures: No Sickle Cell Disease: No Sleep Apnea: No Thyroid Disease: Yes Ulcer: No Tetanus Vaccination: > 5 Years Influenza Vaccination: Yes Past Surgical History Abdominal Surgery: No AICD: No Arteriovenous Shunt: No Cardiac Surgery: No Ear Surgery: No Endocrine Surgery: No Eye Surgery: No Genitourinary Surgery: No Gynecologic Surgery: No Insulin Pump: No Joint Replacement: No Oral Surgery: No Pacemaker: No Thoracic Surgery: Yes (TRACHEOTOMY 2 years ago) Other Surgery: Yes (Hx trach) Social History Alcohol Use: Yes (4 drinks daily) Tobacco Use: Yes (10-15 CIGARETTES) Substance Use: No Allergies-Medications (Allergen,Severity, Reaction): Coded Allergies: No Known Allergies (Unverified , 07/15/17) Reported Meds & Prescriptions Reported Meds & Active Scripts Active Levaquin (Levofloxacin) 250 Mg Tablet 1 Tab PO Q48HRS Atorvastatin (Atorvastatin Calcium) 40 Mg Tab 40 Mg PO HS Furosemide 40 Mg Tab 40 Mg PO DAILY Cardizem CD 24 HR (Diltiazem CD 24 HR) 240 Mg Caper 240 Mg PO DAILY Reported [Iv Antibiotic] Calcium Acetate (Calcium Acetate (Phosphate Bin) 667 Mg Cap 667 Mg PO TID Take with meals Levothyroxine (Levothyroxine Sodium) 175 Mcg Tab 175 Mcg PO DAILY Vitamin D-400 (Cholecalciferol) 400 Unit Tab 400 Units PO DAILY Nexium (Esomeprazole DR) 40 Mg Capdr 40 Mg PO DAILY Coumadin (Warfarin) 2 Mg Tab 2 Mg PO TUESDAY Coumadin (Warfarin) 2.5 Mg Tab 2.5 Mg PO SUMOTUTHFRSA Take 1 tablet (2.5mg) daily in the pm on Tuesday,Tuesday,Tuesday,,Tuesday and Tuesday Glipizide ER (Glipizide) 2.5 Mg Arleen 2.5 Mg PO DAILY Take with breakfast or first main meal of the day Januvia (Sitagliptin Phosphate) 50 Mg Tab 50 Mg PO DAILY Review of Systems Except as stated in HPI: all other systems reviewed are Neg Physical Exam Narrative GENERAL: SKIN: Warm and dry. HEAD: Atraumatic. Normocephalic. EYES: Pupils equal and round. No scleral icterus. No injection or drainage. ENT: No nasal bleeding or discharge. Mucous membranes pink and moist. Tongue is midline. No uvula deviation. NECK: Trachea midline. No JVD. CARDIOVASCULAR: Regular rate and rhythm. No murmurs, S3, S4. RESPIRATORY: No accessory muscle use. Clear to auscultation. Breath sounds equal bilaterally. GASTROINTESTINAL: Abdomen soft, non-tender, nondistended. Hepatic and splenic margins not palpable. MUSCULOSKELETAL: Extremities without clubbing, cyanosis, or edema. No obvious deformities. 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 Patient has a wound on the medial aspect of the leg that is erythematous as well as with yellow crusting and darkening of the skin. Patient also has darkening of the skin with what appears to be gangrene to the left fifth and fourth toes as well as to the metacarpal area of this toes. Nontender. No obvious purulence noted but foul-smelling. Appears to have some good capillary refill noted toes. No other injuries or deformities noted. NEUROLOGICAL: Awake and alert. No obvious cranial nerve deficits. Motor grossly within normal limits. Five out of 5 muscle strength in the arms and legs. Normal speech. PSYCHIATRIC: Appropriate mood and affect; insight and judgment normal. Data Data Last Documented VS Vital Signs Date Time Temp Pulse Resp B/P (MAP) Pulse Ox O2 Delivery O2 Flow Rate FiO2 07/15/17 12:45 18 98 Room Air 07/15/17 12:39 98 07/15/17 12:31 98.2 169/90 (116) Orders Orders Complete Blood Count With Diff (07/15/17 12:39) Comprehensive Metabolic Panel (07/15/17 12:39) Prothrombin Time / Inr (Pt) (07/15/17 12:39) Act Partial Throm Time (Ptt) (07/15/17 12:39) Blood Culture (07/15/17 12:39) C-Reactive Protein (Crp) (07/15/17 12:39) Urinalysis - C+S If Indicated (07/15/17 12:39) Magnesium (Mg) (07/15/17 12:39) Wound Culture And Gram Stain (07/15/17 12:39) Iv Access Insert/Monitor (07/15/17 12:39) Ecg Monitoring (07/15/17 12:39) Oximetry (07/15/17 12:39) Piperacil-Tazo 2.25 Gm Premix (Zosyn 2.2 (07/15/17 12:45) Foot, Complete (Yka1lsp) (07/15/17 ) Tibia/Fibula (Ap/Lat) (07/15/17 ) Lactic Acid Sepsis Protocol (07/15/17 13:00) Vancomycin Inj (Vancomycin Inj) (07/15/17 13:45) Admit Order (Ed Use Only) (07/15/17 13:56) Labs Laboratory Tests Test 07/15/17 12:40 07/15/17 13:15 White Blood Count 12.1 TH/MM3 Red Blood Count 3.96 MIL/MM3 Hemoglobin 11.5 GM/DL Hematocrit 36.3 % Mean Corpuscular Volume 91.8 FL Mean Corpuscular Hemoglobin 29.2 PG Mean Corpuscular Hemoglobin Concent 31.8 % Red Cell Distribution Width 14.5 % Platelet Count 250 TH/MM3 Mean Platelet Volume 8.0 FL Neutrophils (%) (Auto) 83.4 % Lymphocytes (%) (Auto) 5.5 % Monocytes (%) (Auto) 8.2 % Eosinophils (%) (Auto) 1.7 % Basophils (%) (Auto) 1.2 % Neutrophils # (Auto) 10.1 TH/MM3 Lymphocytes # (Auto) 0.7 TH/MM3 Monocytes # (Auto) 1.0 TH/MM3 Eosinophils # (Auto) 0.2 TH/MM3 Basophils # (Auto) 0.1 TH/MM3 CBC Comment DIFF FINAL Differential Comment Prothrombin Time 31.9 SEC Prothromb Time International Ratio 2.8 RATIO Activated Partial Thromboplast Time 64.6 SEC Blood Urea Nitrogen 18 MG/DL Creatinine 3.26 MG/DL Random Glucose 100 MG/DL Total Protein 7.1 GM/DL Albumin 2.3 GM/DL Calcium Level 8.9 MG/DL Magnesium Level 2.1 MG/DL Alkaline Phosphatase 106 U/L Aspartate Amino Transf (AST/SGOT) 22 U/L Alanine Aminotransferase (ALT/SGPT) 11 U/L Total Bilirubin 0.3 MG/DL Sodium Level 132 MEQ/L Potassium Level 4.3 MEQ/L Chloride Level 101 MEQ/L Carbon Dioxide Level 21.1 MEQ/L Anion Gap 10 MEQ/L Estimat Glomerular Filtration Rate 19 ML/MIN C-Reactive Protein 12.40 MG/DL Lactic Acid Level 0.9 mmol/L MDM Medical Decision Making Medical Screen Exam Complete: Yes Emergency Medical Condition: Yes Medical Record Reviewed: Yes Interpretation(s) CBC & BMP Diagram 07/15/17 12:40 Total Protein 7.1, Albumin 2.3 L, Calcium Level 8.9, Magnesium Level 2.1, Alkaline Phosphatase 106, Aspartate Amino Transf (AST/SGOT) 22, Alanine Aminotransferase (ALT/SGPT) 11 L, Total Bilirubin 0.3 coags WNL lactic acid WNL Differential Diagnosis Gangrene versus ulceration versus cellulitis versus osteomyelitis versus kidney disease Narrative Course 71-year-old male that presents to the ED for evaluation of leg wound on the left. Patient was properly examined and was found to have signs and symptoms concerning for gangrene. Case was discussed with Dr. Tinoco over the phone who stated that the patient was to be brought here for evaluation of likely amputation by consult with vascular surgeon. Labs and imaging were ordered. Case discussed with Dr. Liz who agrees with plan. Zosyn was started as per my attendings recommendations. Labs and imaging here showed leukocytosis with elevated CRP as well as what appears to be x-ray findings of osteomyelitis to the left foot. Case discussed in my attending Agrees with admission. Case was discussed with nurse practitioner for who agrees to admission. Consults were placed to nephrology as well as vascular surgeon for likely amputation. This was told to the patient who is in agreement with plan. 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
[2017-07-15 13:06] LABS: AUTOMATED NEUTROPHIL # 10.1 TH/MM3 (1.8-7.7); BASOPHIL # 0.1 TH/MM3 (0-0.2); BASOPHIL % 1.2 % (0.0-2.0); EOSINOPHIL # 0.2 TH/MM3 (0-0.4); EOSINOPHIL % 1.7 % (0.0-4.0); HEMATOCRIT 36.3 % (39.0-51.0); HEMO FLAGS DIFF FINAL; LYMPH % 5.5 % (9.0-44.0); LYMPHOCYTE # 0.7 TH/MM3 (1.0-4.8); MEAN CELL VOLUME 91.8 FL (80.0-100.0); MEAN CORPUSCULAR HEMOGLOBIN 29.2 PG (27.0-34.0); MEAN CORPUSCULAR HGB CONC 31.8 % (32.0-36.0); MONO % 8.2 % (0.0-8.0); NEUT % 83.4 % (16.0-70.0); PLATELET COUNT 250 TH/MM3 (150-450); RED BLOOD COUNT 3.96 MIL/MM3 (4.50-5.90); RED CELL DISTRIBUTION WIDTH 14.5 % (11.6-17.2); WHITE BLOOD COUNT 12.1 TH/MM3 (4.0-11.0)
[2017-07-15 13:14] LABS: APTT (PATIENT) 64.6 SEC (24.3-30.1); INTERNATIONAL NORMALIZED RATIO 2.8 RATIO; PROTHROMBIN TIME - PATIENT 31.9 SEC (9.8-11.6)
[2017-07-15 13:28] LABS: ALT (GPT) 11 U/L (12-78); ANION GAP 10 MEQ/L (5-15); AST (GOT) 22 U/L (15-37); BICARBONATE 21.1 MEQ/L (21.0-32.0); BLOOD UREA NITROGEN 18 MG/DL (7-18); CHLORIDE 101 MEQ/L (98-107); GLOMERULAR FILTRATION RATE 19 ML/MIN (>89); MAGNESIUM 2.1 MG/DL (1.5-2.5); POTASSIUM 4.3 MEQ/L (3.5-5.1); SODIUM (NA) 132 MEQ/L (136-145)
[2017-07-15 13:30] LABS: ALKALINE PHOSPHATASE 106 U/L (45-117); TOTAL BILIRUBIN ADULT 0.3 MG/DL (0.2-1.0)
[2017-07-15] MEDS ORDERED: LEVO175T2 PO (13:34)
[2017-07-15] MEDS ORDERED: CALC667C PO (13:34)
[2017-07-15] MEDS ORDERED: NEXI40CA PO (13:34)
[2017-07-15] MEDS ORDERED: GLIP1TAB60 PO (13:34)
[2017-07-15] MEDS ORDERED: COUM2.5T PO (13:34)
[2017-07-15] MEDS ORDERED: COUM2TAB PO (13:34)
[2017-07-15] MEDS ORDERED: VITATAB56 PO (13:34)
[2017-07-15] MEDS ORDERED: SITA50 PO (13:34)
[2017-07-15] MEDS ORDERED: IV ANTIBIOTIC ×2 (13:34→13:37)
[2017-07-15] MEDS ORDERED: VANCOMYCIN INJ 1,000 MG in SODIUM CHLOR 0.9% 250 ML INJ 250 ML IV ONE (13:45)
[2017-07-15 14:22] LABS: BLOOD, URINE SMALL (NEG); GLUCOSE,URINE 70 mg/dL (NEG); KETONE, URINE NEG (NEG); NITRITE,URINE NEG (NEG); URINE COLOR LIGHT-YELLOW (YELLW/STRAW)
[2017-07-15 14:23] LABS: COMMENT (UR) CULT NOT INDICATED; CULTURE IF INDICATED CULT NOT INDICATED
[2017-07-15] MEDS ORDERED: SENNOSIDES 8.6 MG TAB PO PRN (14:30)
[2017-07-15] MEDS ORDERED: MAGNESIUM HYDROXIDE SUSP 30 ML CUP PO PRN (14:30)
[2017-07-15] MEDS ORDERED: LACTULOSE SYRUP 20 GM/30 ML CUP PO PRN (14:30)
[2017-07-15] MEDS ORDERED: ONDANSETRON HCL 4 MG/2 ML VIAL IVP PRN (14:30)
[2017-07-15] MEDS ORDERED: ACETAMINOPHEN 325 MG TAB PO PRN ×2 (14:30→15:15)
[2017-07-15] MEDS ORDERED: NALOXONE HCL 0.4 MG/ML AMP IV PRN (14:30)
[2017-07-15] MEDS ORDERED: BISACODYL 10 MG SUPP RECTAL PRN (14:30)
--- NOTE | 2017-07-15 14:33 | RADRPT ---
EXAM DATE/TIME: 07/15/2017 13:40 [facility] COMPARISON: No previous studies available for comparison. INDICATIONS : Left foot pain. MEDICAL HISTORY : Hypertension. Diabetes mellitus type II. Dialysis. SURGICAL HISTORY : None. ENCOUNTER: Initial ACUITY: 3 weeks PAIN SCORE: 6/10 LOCATION: Left lateral foot. FINDINGS: Disuse osteopenia extensive vascular calcifications are noted. Fracture is not evident. CONCLUSION: Extensive vascular calcifications with disuse osteopenia. Torres Hurtado MD FACR on July 15, 2017 at 14:32 Board Certified Radiologist. This report was verified electronically.
--- NOTE | 2017-07-15 14:33 | RADRPT ---
EXAM DATE/TIME: 07/15/2017 13:32 [facility] COMPARISON: No previous studies available for comparison. INDICATIONS : Left tibia pain, lateral side. MEDICAL HISTORY : Hypertension. Diabetes mellitus type II. Smoker. SURGICAL HISTORY : None. ENCOUNTER: Initial ACUITY: 3 weeks PAIN SCORE: 6/10 LOCATION: Left tibia. FINDINGS: Extensive vascular calcifications are noted with disuse osteopenia. Fracture is not appreciated. CONCLUSION: Extensive vascular calcifications, negative for fracture. Torres Hurtado MD FACR on July 15, 2017 at 14:31 Board Certified Radiologist. This report was verified electronically.
[2017-07-15] MEDS ORDERED: SODIUM CHLOR 0.9% 1000 ML INJ 1,000 ML IV PRN (15:03)
[2017-07-15] MEDS ORDERED: SODIUM CHLOR 0.9% 1000 ML INJ 1,000 ML OTHER PRN ×2 (15:03)
[2017-07-15] MEDS ORDERED: GELATIN 12 MM/7 MM FOAM TOP PRN (15:15)
[2017-07-15] MEDS ORDERED: MANNITOL 12.5 GM/50 ML VIAL IV PRN (15:15)
[2017-07-15] MEDS ORDERED: HEPARIN SODIUM - IV 10,000 UNITS/10 ML VIAL IVF PRN (15:15)
[2017-07-15] MEDS ORDERED: NITROGLYCERIN 0.4 MG SL 25 TABS/BTL SL PRN (15:15)
[2017-07-15] MEDS ORDERED: ALBUMIN HUMAN 25% 25 GM/100 ML BAGP IV PRN (15:15)
[2017-07-15] MEDS ORDERED: SODIUM CHLORIDE 0.9% FLUSH 10 ML FLUSH IV FLUSH PRN (15:15)
[2017-07-15] MEDS ORDERED: ONDANSETRON HCL 4 MG/2 ML VIAL IV PRN (15:15)
[2017-07-15] MEDS ORDERED: cloNIDine HCL 0.1 MG TAB PO PRN (15:15)
--- NOTE | 2017-07-15 16:50 | PD.VS.CON ---
History of Present Illness Chief Complaint: L infected toe Consult Requested by: ED History of Present Illness 71yo man with PAD, DM and ESRD who presented with L foot infection. Has been in facility for months, nonambulatory after R AKA. Reportedly had R foot infection and attempted BKA but quickly converted to AKA because of non-healing. No F/C and systemically feels well. 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 Social History ex smoker was in [employer] x 22 years Family History NC Home Medications Active Scripts Levofloxacin (Levaquin) 250 Mg Tablet, 1 TAB PO q48hrs, #20 Prov:Allie Brewer MD 06/27/17 Atorvastatin (Atorvastatin) 40 Mg Tab, 40 MG PO HS for Cholesterol Management, # 30 TAB Prov:Cherie Loyd 03/07/17 Furosemide (Furosemide) 40 Mg Tab, 40 MG PO DAILY for Blood Pressure Management , #30 TAB Prov:Cherie Loyd 03/07/17 Diltiazem CD 24 HR (Cardizem CD 24 HR) 240 Mg Caper, 240 MG PO DAILY for Blood Pressure Management, #30 CAP Prov:Cherie Loyd 03/07/17 Reported Medications [Iv Antibiotic] No Conflict Check 07/15/17 Calcium Acetate (Phosphate Bin (Calcium Acetate) 667 Mg Cap, 667 MG PO TID Take with meals 07/15/17 Levothyroxine (Levothyroxine) 175 Mcg Tab, 175 MCG PO DAILY for Thyroid, #30 TAB 0 Refills 07/15/17 Cholecalciferol (Vitamin D-400) 400 Unit Tab, 400 UNITS PO DAILY for Nutritional Supplement, #1 BOTTLE 0 Refills 07/15/[address] (Nexium) 40 Mg Capdr, 40 MG PO DAILY, CAP 0 Refills 07/15/17 Warfarin (Coumadin) 2 Mg Tab, 2 MG PO TUESDAY for Prevent Blood Clot, #30 TAB 0 Refills 07/15/17 Warfarin (Coumadin) 2.5 Mg Tab, 2.5 MG PO [id number] for Prevent Blood Clot, # 30 TAB 0 Refills Take 1 tablet (2.5mg) daily in the pm on Tuesday,Tuesday,Tuesday,,Tuesday and Tuesday07/15/17 Glipizide ER (Glipizide ER) 2.5 Mg Arleen, 2.5 MG PO DAILY for Blood Sugar Management, #30 TAB 0 Refills Take with breakfast or first main meal of the day 07/15/17 Sitagliptin (Januvia) 50 Mg Tab, 50 MG PO DAILY for Blood Sugar Management, #30 TAB 0 Refills 07/15/17 Discontinued Scripts Povidone-Iodine Topical (Betadine Skin Cleanser Topical) 7.5% Soln, 1 APPLIC TOPICAL ONCE for Cleanser, #1 BOTTLE 1 Refill Prov:Allie Brewer MD 06/22/17 Gabapentin (Gabapentin) 100 Mg Cap, 100 MG PO TID for Pain Management, #90 CAP Prov:Cherie LoydP 03/07/17 Heparin Sodium (Porcine) (Heparin Sodium) 10,000 Unit/Ml Inj, 5000 UNITS SQ Q12H for Blood Clot Prevention, #30 INJECTION Prov:Cherie LoydP 03/07/17 Pantoprazole (Pantoprazole) 40 Mg Tab, 40 MG PO DAILY for Reflux, #30 TAB Prov:Cherie LoydP 03/07/17 Vitamin B Cmplx/Vit C/Folic AC (Nephro-Courtney Rx) 1 Tab, 1 CAP PO DAILY for Electrolyte Replacement, #30 TAB Prov:Cherie LoydP 03/07/17 Clonidine (Catapres) 0.1 Mg Tab, 0.1 MG PO BID for Blood Pressure Management, # 60 TAB Prov:Cherie LoydP 03/07/17 Atenolol (Atenolol) 100 Mg Tab, 100 MG PO BID for Blood Pressure Management, # 60 TAB Prov:Cherie LoydP 03/07/17 Amoxicillin-Clavulanate (Augmentin) 500-125 mg Tab, 500 MG PO Q12HR for Infection, #4 TAB Prov:Cherie LoydP 03/07/17 Coded Allergies: No Known Allergies (Unverified , 07/15/17) Review of Systems Constitutional: COMPLAINS OF: Chills Cardiovascular: COMPLAINS OF: Lower Extremity Edema, DENIES: Chest pain Physical Exam Vitals/I&O Date Time Temp Pulse Resp B/P (MAP) Pulse Ox O2 Delivery O2 Flow Rate FiO2 07/15/17 12:45 18 98 Room Air 07/15/17 12:39 98 17 07/15/17 12:31 98.2 98 17 169/90 (116) 98 Neuro: alert, conversant HEENT: NC/AT; anicteric sclera Neck: no JVD Heart: irreg rate, no M Lungs: coarse BS; R chest catheter Abdomen: NT Vascular: palpable L femoral pulse, no palpable pedal or popliteal pulse Extremities: R AKA L foot Charcot shaped with erythema and serous drainage medially eschar laterally mild odor Laboratory Tests Test 07/15/17 12:40 07/15/17 13:15 07/15/17 14:05 White Blood Count 12.1 Red Blood Count 3.96 Hemoglobin 11.5 Hematocrit 36.3 Mean Corpuscular Volume 91.8 Mean Corpuscular Hemoglobin 29.2 Mean Corpuscular Hemoglobin Concent 31.8 Red Cell Distribution Width 14.5 Platelet Count 250 Mean Platelet Volume 8.0 Neutrophils (%) (Auto) 83.4 Lymphocytes (%) (Auto) 5.5 Monocytes (%) (Auto) 8.2 Eosinophils (%) (Auto) 1.7 Basophils (%) (Auto) 1.2 Neutrophils # (Auto) 10.1 Lymphocytes # (Auto) 0.7 Monocytes # (Auto) 1.0 Eosinophils # (Auto) 0.2 Basophils # (Auto) 0.1 CBC Comment DIFF FINAL Differential Comment Prothrombin Time 31.9 Prothromb Time International Ratio 2.8 Activated Partial Thromboplast Time 64.6 Blood Urea Nitrogen 18 Creatinine 3.26 Random Glucose 100 Total Protein 7.1 Albumin 2.3 Calcium Level 8.9 Magnesium Level 2.1 Alkaline Phosphatase 106 Aspartate Amino Transf (AST/SGOT) 22 Alanine Aminotransferase (ALT/SGPT) 11 Total Bilirubin 0.3 Sodium Level 132 Potassium Level 4.3 Chloride Level 101 Carbon Dioxide Level 21.1 Anion Gap 10 Estimat Glomerular Filtration Rate 19 C-Reactive Protein 12.40 Lactic Acid Level 0.9 Urine Color LIGHT-YELLOW Urine Turbidity CLEAR Urine pH 7.0 Urine Specific [place] 1.005 Urine Protein 100 Urine Glucose (UA) 70 Urine Ketones NEG Urine Occult Blood SMALL Urine Nitrite NEG Urine Bilirubin NEG Urine Urobilinogen LESS THAN 2.0 Urine Leukocyte Esterase NEG Urine RBC 1 Urine WBC 3 Microscopic Urinalysis Comment CULT NOT INDICATED Date/Time Source Procedure Growth Status 07/15/17 12:50 Blood Peripheral Aerobic Blood Culture Pending Received 07/15/17 12:50 Blood Peripheral Anaerobic Blood Culture Pending Received 07/15/17 12:40 Wound Foot Gram Stain - Final Resulted 07/15/17 12:40 Wound Foot Wound Culture Pending Resulted Last 48 hours Impressions Tibia/Fibula X-Ray 07/15/17 0000 Signed Impressions: Service Date/Time: Saturday, July 15, 2017 13:32 - CONCLUSION: Extensive vascular calcifications, negative for fracture. Torres Hurtado MD FACR Foot X-Ray 07/15/17 0000 Signed Impressions: Service Date/Time: Saturday, July 15, 2017 13:40 - CONCLUSION: Extensive vascular calcifications with disuse osteopenia. Torres Hurtado MD FACR Assessment and Plan Plan 1. Needs L LE amputation as he is nonambulatory and I think the foot is non- salvageable. 2. Needs INR reversal, slowly 3. Broad antibiotics 4. Ortho consult for 2nd opinion 5. nephrology consult for HD (TTS via R chest catheter) 6. Tentatively will do staged open L BKA on Tuesday and completion after several more days of IV antibiotics Discussed with patient and his at BS in ED. Malick Field MD FACS RPVI curb and gutter laborer [facility] - Heart and Vascular Surgery at [facility] [phone] Malick Field MD Jul 15, 2017 16:50
[2017-07-15 17:15] VITALS: BP 171/87; PULSE 105; RESP 18; TEMP 97.3; O2SAT 97
[2017-07-15] MEDS: CALCIUM ACETATE 667 MG CAP PO SCH (18:09)
[2017-07-15] MEDS: HEPARIN SODIUM - SQ 10,000 UNITS/ML VIAL SQ SCH (18:09)
[2017-07-15 20:00] VITALS: BP 167/86; PULSE 95; RESP 21; TEMP 96.8; O2SAT 99
[2017-07-15] MEDS: ATORVASTATIN 40 MG TAB PO SCH (20:30)
[2017-07-15] MEDS: SODIUM CHLORIDE 0.9% FLUSH 10 ML FLUSH IV FLUSH SCH (20:31)
[2017-07-15] MEDS: DOCUSATE SODIUM 50 MG/SENNA 8.6 MG TAB PO SCH (20:31)
[2017-07-16] VITALS: BP 125/80; PULSE 91; RESP 22; TEMP 96.3; O2SAT 96
[2017-07-16] MEDS: LEVOTHYROXINE SODIUM 75 MCG TAB PO SCH (05:34)
[2017-07-16] MEDS: HEPARIN SODIUM - SQ 10,000 UNITS/ML VIAL SQ SCH ×2 (05:35→17:43)
[2017-07-16] MEDS: LEVOTHYROXINE SODIUM 100 MCG TAB PO SCH (05:35)
[2017-07-16 06:55] LABS: AUTOMATED NEUTROPHIL # 8.1 TH/MM3 (1.8-7.7); BASOPHIL # 0.1 TH/MM3 (0-0.2); BASOPHIL % 1.4 % (0.0-2.0); EOSINOPHIL # 0.3 TH/MM3 (0-0.4); EOSINOPHIL % 2.9 % (0.0-4.0); HEMATOCRIT 31.8 % (39.0-51.0); HEMO FLAGS DIFF FINAL; LYMPH % 4.7 % (9.0-44.0); LYMPHOCYTE # 0.5 TH/MM3 (1.0-4.8); MEAN CELL VOLUME 91.6 FL (80.0-100.0); MEAN CORPUSCULAR HEMOGLOBIN 30.3 PG (27.0-34.0); MEAN CORPUSCULAR HGB CONC 33.1 % (32.0-36.0); MONO % 7.5 % (0.0-8.0); NEUT % 83.5 % (16.0-70.0); PLATELET COUNT 214 TH/MM3 (150-450); RED BLOOD COUNT 3.48 MIL/MM3 (4.50-5.90); RED CELL DISTRIBUTION WIDTH 14.5 % (11.6-17.2); WHITE BLOOD COUNT 9.7 TH/MM3 (4.0-11.0)
[2017-07-16] MEDS ORDERED: glipiZIDE 5 MG TAB PO SCH (07:00)
[2017-07-16 07:22] LABS: ANION GAP 8 MEQ/L (5-15); AST (GOT) 20 U/L (15-37); BICARBONATE 22.6 MEQ/L (21.0-32.0); BLOOD UREA NITROGEN 26 MG/DL (7-18); CHLORIDE 102 MEQ/L (98-107); GLOMERULAR FILTRATION RATE 15 ML/MIN (>89); POTASSIUM 4.3 MEQ/L (3.5-5.1); SODIUM (NA) 133 MEQ/L (136-145)
[2017-07-16 07:23] LABS: ALT (GPT) 11 U/L (12-78)
[2017-07-16 07:26] LABS: ALKALINE PHOSPHATASE 99 U/L (45-117); TOTAL BILIRUBIN ADULT 0.3 MG/DL (0.2-1.0)
[2017-07-16 08:00] VITALS: BP 134/66; PULSE 93; RESP 18; TEMP 97.9; O2SAT 94
[2017-07-16] MEDS: PANTOPRAZOLE SOD 40 MG DELAYED RELEASE TAB PO SCH (08:20)
[2017-07-16] MEDS: DOCUSATE SODIUM 50 MG/SENNA 8.6 MG TAB PO SCH ×2 (08:20→22:55)
[2017-07-16] MEDS: FUROSEMIDE 40 MG TAB PO SCH (08:20)
[2017-07-16] MEDS: DILTIAZEM-CD 240 MG CAP ER PO SCH (08:20)
[2017-07-16] MEDS: CALCIUM ACETATE 667 MG CAP PO SCH ×3 (08:21→17:43)
[2017-07-16] MEDS: SODIUM CHLORIDE 0.9% FLUSH 10 ML FLUSH IV FLUSH SCH ×2 (08:24→22:55)
--- NOTE | 2017-07-16 09:13 | PD.VS.PN ---
Subjective Subjective/Hospital Course Pt without events overnight. Feels well. No chills or systemic symptoms of infection Objective Vitals/I&O Date Time Temp Pulse Resp B/P (MAP) Pulse Ox O2 Delivery O2 Flow Rate FiO2 07/16/17 08:00 97.9 93 18 134/66 (88) 94 07/16/17 00:00 96.3 91 22 125/80 (95) 96 07/15/17 20:00 96.8 95 21 167/86 (113) 99 07/15/17 17:15 97.3 105 18 171/87 (115) 97 07/15/17 12:45 18 98 Room Air 07/15/17 12:39 98 17 07/15/17 12:31 98.2 98 17 169/90 (116) 98 07/16/17 07/16/17 07/16/17 06:59 14:59 22:59 Intake Total 500 ml Balance 500 ml Physical Exam L foot foul smelling, venous stasis changes to upper calf Laboratory Laboratory Tests Test 07/15/17 12:40 07/15/17 13:15 07/15/17 14:05 07/16/17 05:00 White Blood Count 12.1 9.7 Red Blood Count 3.96 3.48 Hemoglobin 11.5 10.6 Hematocrit 36.3 31.8 Mean Corpuscular Volume 91.8 91.6 Mean Corpuscular Hemoglobin 29.2 30.3 Mean Corpuscular Hemoglobin Concent 31.8 33.1 Red Cell Distribution Width 14.5 14.5 Platelet Count 250 214 Mean Platelet Volume 8.0 8.9 Neutrophils (%) (Auto) 83.4 83.5 Lymphocytes (%) (Auto) 5.5 4.7 Monocytes (%) (Auto) 8.2 7.5 Eosinophils (%) (Auto) 1.7 2.9 Basophils (%) (Auto) 1.2 1.4 Neutrophils # (Auto) 10.1 8.1 Lymphocytes # (Auto) 0.7 0.5 Monocytes # (Auto) 1.0 0.7 Eosinophils # (Auto) 0.2 0.3 Basophils # (Auto) 0.1 0.1 CBC Comment DIFF FINAL DIFF FINAL Differential Comment Prothrombin Time 31.9 Prothromb Time International Ratio 2.8 Activated Partial Thromboplast Time 64.6 Blood Urea Nitrogen 18 26 Creatinine 3.26 3.94 Random Glucose 100 66 Total Protein 7.1 6.3 Albumin 2.3 2.2 Calcium Level 8.9 8.6 Magnesium Level 2.1 Alkaline Phosphatase 106 99 Aspartate Amino Transf (AST/SGOT) 22 20 Alanine Aminotransferase (ALT/SGPT) 11 11 Total Bilirubin 0.3 0.3 Sodium Level 132 133 Potassium Level 4.3 4.3 Chloride Level 101 102 Carbon Dioxide Level 21.1 22.6 Anion Gap 10 8 Estimat Glomerular Filtration Rate 19 15 C-Reactive Protein 12.40 Lactic Acid Level 0.9 Urine Color LIGHT-YELLOW Urine Turbidity CLEAR Urine pH 7.0 Urine Specific [place] 1.005 Urine Protein 100 Urine Glucose (UA) 70 Urine Ketones NEG Urine Occult Blood SMALL Urine Nitrite NEG Urine Bilirubin NEG Urine Urobilinogen LESS THAN 2.0 Urine Leukocyte Esterase NEG Urine RBC 1 Urine WBC 3 Microscopic Urinalysis Comment CULT NOT INDICATED Date/Time Source Procedure Growth Status 07/15/17 12:50 Blood Peripheral Aerobic Blood Culture Pending Received 07/15/17 12:50 Blood Peripheral Anaerobic Blood Culture Pending Received 07/15/17 12:40 Wound Foot Gram Stain - Final Resulted 07/15/17 12:40 Wound Foot Wound Culture Pending Resulted Imaging Last 48 hours Impressions Tibia/Fibula X-Ray 07/15/17 0000 Signed Impressions: Service Date/Time: Saturday, July 15, 2017 13:32 - CONCLUSION: Extensive vascular calcifications, negative for fracture. Torres Hurtado MD FACR Foot X-Ray 07/15/17 0000 Signed Impressions: Service Date/Time: Saturday, July 15, 2017 13:40 - CONCLUSION: Extensive vascular calcifications with disuse osteopenia. Torres Hurtado MD FACR Assessment and Plan Plan 1. Needs L LE amputation as he is nonambulatory and I think the foot is non- salvageable. Plan for tomorrow (Tuesday) for OPEN LEFT BKA with second stage ( LEFT AKA several days to follow). 2. Needs INR reversal, slowly 3. Broad antibiotics including cefepime which he was taking with HD for UTI 4. Ortho consult for 2nd opinion - pending 5. nephrology consult for HD (TTS via R chest catheter) Discussed with patient and his at BS in ED. Malick Field MD FACS VI hospitality services manager [facility] - Heart and Vascular Surgery at [facility] [phone] Malick Field MD Jul 16, 2017 09:13
--- NOTE | 2017-07-16 11:52 | HHI.HP ---
History of Present Illness Primary Care Physician Antoni Bird, DO Admission Diagnosis gangrene left foot with osteomyelitis, DM, ESRD Diagnoses: Review of Systems Integumentary: COMPLAINS OF: Rash Past Family Social History Allergies: Coded Allergies: No Known Allergies (Unverified , 07/15/17) Past Medical History PVD HTN HYPOTHYROID Reported Medications Reported Meds & Active Scripts Active Levaquin (Levofloxacin) 250 Mg Tablet 1 Tab PO Q48HRS Atorvastatin (Atorvastatin Calcium) 40 Mg Tab 40 Mg PO HS Furosemide 40 Mg Tab 40 Mg PO DAILY Cardizem CD 24 HR (Diltiazem CD 24 HR) 240 Mg Caper 240 Mg PO DAILY Reported [Iv Antibiotic] Calcium Acetate (Calcium Acetate (Phosphate Bin) 667 Mg Cap 667 Mg PO TID Take with meals Levothyroxine (Levothyroxine Sodium) 175 Mcg Tab 175 Mcg PO DAILY Vitamin D-400 (Cholecalciferol) 400 Unit Tab 400 Units PO DAILY Nexium (Esomeprazole DR) 40 Mg Capdr 40 Mg PO DAILY Coumadin (Warfarin) 2 Mg Tab 2 Mg PO TUESDAY Coumadin (Warfarin) 2.5 Mg Tab 2.5 Mg PO SUMOT Take 1 tablet (2.5mg) daily in the pm on Tuesday,Tuesday,Tuesday,,Tuesday and Tuesday Glipizide ER (Glipizide) 2.5 Mg Arleen 2.5 Mg PO DAILY Take with breakfast or first main meal of the day Januvia (Sitagliptin Phosphate) 50 Mg Tab 50 Mg PO DAILY Active Ordered Medications Inpatient Medications Acetaminophen (Tylenol) 650 mg UNSCH PRN PO for headach, pain, temp > 101F; Start 07/15/17 at 15:15 Albumin Human (Albumin 25% Inj) 25 gm UNSCH PRN IV WITH DIALYSIS; Start at 15:15 Atorvastatin Calcium (Lipitor) 40 mg HS PO Last administered on 07/15/17 20:30 ; Start 07/15/17 at 21:00 Bisacodyl (Dulcolax Supp) 10 mg DAILY PRN RECTAL SEVERE CONSITIPATION; Start at 14:30 Calcium Acetate (Phoslo) 667 mg TID PO Last administered on 07/16/17 08:21; Start 07/15/17 at 18:00 Clonidine (Catapres) 0.1 mg UNSCH PRN PO for BP > 180/100 X 2 readings; Start 07/15/17 at 15:15 Diltiazem HCl (Cardizem Cd) 240 mg DAILY PO Last administered on 07/16/17 08:20 ; Start 07/16/17 at 09:00 Diphenhydramine HCl (Benadryl) 25 mg UNSCH PRN PO for hives/itching/anaphylaxis ; Start 07/15/17 at 15:15 Furosemide (Lasix) 40 mg DAILY PO Last administered on 07/16/17 08:20; Start at 09:00 Gelatin (Gelfoam 12 Mm/7 Mm Top) 1 foam UNSCH PRN TOP SEE LABEL COMMENTS; Start 07/15/17 at 15:15 Gentamicin Sulfate (Gentamicin (Dialysis) Inj) 20 mg UNSCH PRN IV WITH DIALYSIS ; Start 07/15/17 at 15:15 Glipizide (Glucotrol) 2.5 mg AC BREAKFAST PO ; Start 07/16/17 at 07:00; Stop 07/16/17 at 07:00; Status DC Heparin Sodium (Porcine) (Heparin Inj) UNSCH PRN .XX WITH DIALYSIS; Start 07/15 at 15:15 Lactulose (Lactulose Liq) 30 ml DAILY PRN PO SEVERE CONSITIPATION; Start at 14:30 Levothyroxine Sodium (Synthroid) 75 mcg DAILY@0600 PO Last administered on 05:34; Start 07/16/17 at 06:00 Magnesium Hydroxide (Milk Of Magnesia Liq) 30 ml Q12H PRN PO MILD - MODERATE CONSTIPATION; Start 07/15/17 at 14:30 Mannitol (Mannitol Inj) 12.5 gm UNSCH PRN IV WITH DIALYSIS; Start 07/15/17 at 15 :15 Naloxone HCl (Narcan Inj) 0.4 mg UNSCH PRN IV SEE LABEL COMMENTS; Start at 14:30 Nitroglycerin (Nitrostat Sl) 0.4 mg UNSCH PRN SL CHEST PAIN; Start 07/15/17 at 15:15 Ondansetron HCl (Zofran Inj) 4 mg UNSCH PRN IV WITH DIALYSIS; Start 07/15/17 at 15:15 Pantoprazole Sodium (Protonix) 40 mg DAILY PO Last administered on 07/16/17 08: 20; Start 07/16/17 at 09:00 Piperacillin Sod/ Tazobactam Sod 50 ml @ 100 mls/hr ONCE ONCE IV Last administered on 07/15/17 12:57; Start 07/15/17 at 12:45; Stop 07/15/17 at 13:14; Status DC Senna/Docusate Sodium (Mary-Colace) 1 tab BID PO Last administered on 07/16/17 08:20; Start 07/15/17 at 21:00 Sennosides (Senokot) 17.2 mg Q12H PRN PO MODERATE - SEVERE CONSTIPATION; Start 07/15/17 at 14:30 Sitagliptin Phosphate (Januvia) 50 mg DAILY PO ; Start 07/16/17 at 09:00; Stop at 09:00; Status DC Sodium Chloride (NS Flush) 5 ml UNSCH PRN IV FLUSH WITH DIALYSIS; Start at 15:15 Vancomycin HCl 1000 mg/Sodium Chloride 250 ml @ 250 mls/hr WITH DIALYSIS ONCE IV Last administered on 07/15/17 13:53; Start 07/15/17 at 13:45; Stop 07/15/17 at 14:44; Status DC Family History FATHER OF SPINAL CANCER MOTHER IN OLD AGE Social History non smoker occ drinker Physical Exam Vital Signs Vital Signs Date Time Temp Pulse Resp B/P (MAP) Pulse Ox O2 Delivery O2 Flow Rate FiO2 07/16/17 08:00 97.9 93 18 134/66 (88) 94 07/16/17 00:00 96.3 91 22 125/80 (95) 96 07/15/17 20:00 96.8 95 21 167/86 (113) 99 07/15/17 17:15 97.3 105 18 171/87 (115) 97 07/15/17 12:45 18 98 Room Air 07/15/17 12:39 98 17 07/15/17 12:31 98.2 98 17 169/90 (116) 98 Physical Exam GENERAL: This is a well-nourished, well-developed patient, in no apparent distress. SKIN: OPEN WOUND LEFT LOWER EXT HEAD: Atraumatic. Normocephalic. No temporal or scalp tenderness. EYES: Pupils equal round and reactive. Extraocular motions intact. No scleral icterus. No injection or drainage. ENT: Nose without bleeding, purulent drainage or septal hematoma. Throat without erythema, tonsillar hypertrophy or exudate. Uvula midline. Airway patent. NECK: Trachea midline. No JVD or lymphadenopathy. Supple, nontender, no meningeal signs. CARDIOVASCULAR: Regular rate and rhythm without murmurs, gallops, or rubs. RESPIRATORY: Clear to auscultation. Breath sounds equal bilaterally. No wheezes , rales, or rhonchi. GASTROINTESTINAL: Abdomen soft, non-tender, nondistended. No hepato-splenomegaly , or palpable masses. No guarding. MUSCULOSKELETAL: old r AKA LEFT LEG COOL AND DISCOLORED NEUROLOGICAL: Awake and alert. Cranial nerves II through XII intact. Motor and sensory grossly within normal limits. Five out of 5 muscle strength in all muscle groups. Normal speech. Laboratory Laboratory Tests Test 07/15/17 12:40 07/15/17 13:15 07/15/17 14:05 07/16/17 05:00 White Blood Count 12.1 9.7 Red Blood Count 3.96 3.48 Hemoglobin 11.5 10.6 Hematocrit 36.3 31.8 Mean Corpuscular Volume 91.8 91.6 Mean Corpuscular Hemoglobin 29.2 30.3 Mean Corpuscular Hemoglobin Concent 31.8 33.1 Red Cell Distribution Width 14.5 14.5 Platelet Count 250 214 Mean Platelet Volume 8.0 8.9 Neutrophils (%) (Auto) 83.4 83.5 Lymphocytes (%) (Auto) 5.5 4.7 Monocytes (%) (Auto) 8.2 7.5 Eosinophils (%) (Auto) 1.7 2.9 Basophils (%) (Auto) 1.2 1.4 Neutrophils # (Auto) 10.1 8.1 Lymphocytes # (Auto) 0.7 0.5 Monocytes # (Auto) 1.0 0.7 Eosinophils # (Auto) 0.2 0.3 Basophils # (Auto) 0.1 0.1 CBC Comment DIFF FINAL DIFF FINAL Differential Comment Prothrombin Time 31.9 Prothromb Time International Ratio 2.8 Activated Partial Thromboplast Time 64.6 Blood Urea Nitrogen 18 26 Creatinine 3.26 3.94 Random Glucose 100 66 Total Protein 7.1 6.3 Albumin 2.3 2.2 Calcium Level 8.9 8.6 Magnesium Level 2.1 Alkaline Phosphatase 106 99 Aspartate Amino Transf (AST/SGOT) 22 20 Alanine Aminotransferase (ALT/SGPT) 11 11 Total Bilirubin 0.3 0.3 Sodium Level 132 133 Potassium Level 4.3 4.3 Chloride Level 101 102 Carbon Dioxide Level 21.1 22.6 Anion Gap 10 8 Estimat Glomerular Filtration Rate 19 15 C-Reactive Protein 12.40 Lactic Acid Level 0.9 Urine Color LIGHT-YELLOW Urine Turbidity CLEAR Urine pH 7.0 Urine Specific [place] 1.005 Urine Protein 100 Urine Glucose (UA) 70 Urine Ketones NEG Urine Occult Blood SMALL Urine Nitrite NEG Urine Bilirubin NEG Urine Urobilinogen LESS THAN 2.0 Urine Leukocyte Esterase NEG Urine RBC 1 Urine WBC 3 Microscopic Urinalysis Comment CULT NOT INDICATED Date/Time Source Procedure Growth Status 07/15/17 12:50 Blood Peripheral Aerobic Blood Culture - Preliminary NO GROWTH IN 1 DAY Resulted 07/15/17 12:50 Blood Peripheral Anaerobic Blood Culture - Preliminary NO GROWTH IN 1 DAY Resulted 07/15/17 12:40 Wound Foot Gram Stain - Final Resulted 07/15/17 12:40 Wound Foot Wound Culture Pending Resulted Result Diagram: 07/16/17 0500 07/16/17 0500 Imaging Last 72 hours Impressions Tibia/Fibula X-Ray 07/15/17 0000 Signed Impressions: Service Date/Time: Saturday, July 15, 2017 13:32 - CONCLUSION: Extensive vascular calcifications, negative for fracture. Torres Hurtado MD FACR Foot X-Ray 07/15/17 0000 Signed Impressions: Service Date/Time: Saturday, July 15, 2017 13:40 - CONCLUSION: Extensive vascular calcifications with disuse osteopenia. Torres Hurtado MD FACR Caprini VTE Risk Assessment Caprini VTE Risk Assessment: Mod/High Risk (score >= 2) VTE Pharm Contraindication: Documented Caprini Risk Assessment Model Point Value = 1 Point Value = 2 Point Value = 3 Point Value = 5 Age 41-60 Minor surgery BMI > 25 kg/m2 Swollen legs Varicose veins or History of unexplained or recurrent spontaneous Oral contraceptives or hormone replacement Sepsis (< 1 month) Serious lung disease, including pneumonia (< 1 month) Abnormal pulmonary function Acute myocardial infarction Congestive heart failure (< 1 month) History of inflammatory bowel disease Medical patient at bed rest Age 61-74 Arthroscopic surgery Major open surgery (> 45 min) Laparoscopic surgery (> 45 min) Malignancy Confined to bed (> 72 hours) Immobilizing plaster cast Central venous access Age >= 75 History of VTE Family history of VTE Factor V Leiden Prothrombin [id number] Lupus anticoagulant Anticardiolipin antibodies Elevated serum homocysteine Heparin-induced thrombocytopenia Other congenital or acquired thrombophilia Stroke (< 1 month) Elective arthroplasty Hip, pelvis, or leg fracture Acute spinal cord injury (< 1 month) Prophylaxis Regimen Total Risk Factor Score Risk Level Prophylaxis Regimen 0-1 Low Early ambulation 2 Moderate Order ONE of the following: *Sequential Compression Device (SCD) *Heparin 5000 units SQ BID 3-4 Higher Order ONE of the following medications: *Heparin 5000 units SQ TID *Enoxaparin/Lovenox 40 mg SQ daily (WT < 150 kg, CrCl > 30 mL/min) *Enoxaparin/Lovenox 30 mg SQ daily (WT < 150 kg, CrCl > 10-29 mL/min) *Enoxaparin/Lovenox 30 mg SQ BID (WT < 150 kg, CrCl > 30 mL/min) AND/OR *Sequential Compression Device (SCD) 5 or more Highest Order ONE of the following medications: *Heparin 5000 units SQ TID (Preferred with Epidurals) *Enoxaparin/Lovenox 40 mg SQ daily (WT < 150 kg, CrCl > 30 mL/min) *Enoxaparin/Lovenox 30 mg SQ daily (WT < 150 kg, CrCl > 10-29 mL/min) *Enoxaparin/Lovenox 30 mg SQ BID (WT < 150 kg, CrCl > 30 mL/min) AND *Sequential Compression Device (SCD) Assessment and Plan Problem List: (1) Osteomyelitis ICD Codes: M86.9 - Osteomyelitis, unspecified Status: Acute (2) PVD (peripheral vascular disease) ICD Codes: I73.9 - Peripheral vascular disease, unspecified Status: Acute Plan: discussed with patient will proceed with amputation Discussed Condition With patient Problem Qualifiers (1) Osteomyelitis: Qualified Codes: M86.9 - Osteomyelitis, unspecified Antoni Bird DO Jul 16, 2017 11:52
[2017-07-16 12:00] VITALS: BP 157/78; PULSE 88; RESP 17; TEMP 96.8; O2SAT 98
--- NOTE | 2017-07-16 12:53 | PD.CONS ---
History of Present Illness Service Infectious disease Consult Requested By Dr. Bird Reason for Consult evaluate patient with osteomyelitis Primary Care Physician Antoni Bird, DO Diagnoses: History of Present Illness patient seen and examined. Records reviewed. Patient is a 71-year-old male, with known history of peripheral vascular disease , admitted to the hospital for further evaluation of his left foot. Patient has been in a rehabilitation facility, and being followed by a computer system validation specialist. He has wounds on the medial aspect of his left foot as well as the 4th and fifth toes. According to the patient over the last 2 weeks he has noted some odor coming out of the left foot. He has not really seen what his foot looks like post day always have a dressing around the foot. He has not had any fever or chills or sweats. His complaining of pain on the left foot. Patient has not been ambulating in the rehabilitation facility. He had undergone a right [id number] amputation back in February 2017 for gangrene. During that admission he was septic and had positive blood cultures. The stump healed without any problem. Since admission he has not had any fever. His WBC is elevated. Patient has end-stage renal disease, and gets hemodialysis every Tuesday and Tuesday. He received 1 dose of Vanco and Zosyn yesterday , and has not been on any antibiotics since. Vascular surgery has seen the patient and surgical plans have been noted. Infectious disease consultation has been requested to evaluate the patient. Review of Systems Constitutional: DENIES: Fever, Chills, Night Sweats Eyes: DENIES: Eye pain Ears, nose, mouth, throat: DENIES: Nasal discharge, Oral lesions, Throat pain, Running Nose, Sinus Pain, Toothache Respiratory: DENIES: Cough, Sputum production, Shortness of breath Cardiovascular: DENIES: Chest pain, Palpitations, Syncope Gastrointestinal: DENIES: Abdominal pain, Constipation, Diarrhea, Nausea, Vomiting, Difficulty Swallowing Musculoskeletal: DENIES: Muscle aches Integumentary: DENIES: Rash Neurologic: DENIES: Headache Psychiatric: DENIES: Hallucinations Past Family Social History Allergies: Coded Allergies: No Known Allergies (Unverified , 07/15/17) Past Medical History Hypertension Hyperlipidemia Diabetes Atrial fibrillation GERD End-stage renal disease Thyroid disease, hypothyroidism Past Surgical History Previous tracheostomy and removal Right AKA February 2017 AV fistula in the right upper extremity, not functional Right IJ permacath Active Ordered Medications Acetaminophen Albumin Lipitor Dulcolax PhosLo Clonidine Cardizem Benadryl Lasix Gentamicin Heparin Lactulose Synthroid MOM Mannitol SL NTG Zofran Protonix Mary-Colace Senokot Family History noncontributory Social History There is history of smoking There is also mention of drinking alcohol daily No illicit drugs Has been in a rehabilitation facility since February 2017 Physical Exam Vital Signs Vital Signs Date Time Temp Pulse Resp B/P (MAP) Pulse Ox O2 Delivery O2 Flow Rate FiO2 07/16/17 12:00 96.8 88 17 157/78 (104) 98 07/16/17 08:00 97.9 93 18 134/66 (88) 94 07/16/17 00:00 96.3 91 22 125/80 (95) 96 07/15/17 20:00 96.8 95 21 167/86 (113) 99 07/15/17 17:15 97.3 105 18 171/87 (115) 97 07/15/17 12:45 18 98 Room Air 07/15/17 12:39 98 17 Physical Exam GENERAL: Patient is a well-nourished, well-developed male, awake and alert, not in respiratory distress. SKIN: Warm and dry. No generalized rash, no ecchymoses and no evidence of embolic lesions. HEAD: Atraumatic. Normocephalic. No temporal wasting, or tenderness. EYES: [place] conjunctiva. No petechia or hemorrhage. Pupils equal, round and reactive to light. Extraocular movements full and intact. No scleral icterus. No injection or drainage. EARS, NOSE AND THROAT: Nose without bleeding or purulent nasal discharge. No sinus tenderness. Mucous membranes pink and moist. No oral lesions noted. No exudate. No oral thrush. NECK: Trachea midline. Supple and not tender, no meningeal signs CARDIOVASCULAR: Regular rate and rhythm. No murmurs, rubs or gallops heard. Permacath R chest, no evidence of infection RESPIRATORY: Clear to auscultation. Breath sounds equal bilaterally. No rales , wheezing or rhonchi ABDOMEN: Soft, non-tender, nondistended. Bowel sounds present and normoactive. No guarding. No rebound. No organomegaly. EXTREMITIES: S/P RAKA - well healed stump. LLE - has chronic brownish pigmentation in L leg; has Charcot deformiti on his L foot, and there is a black eschar on medial L foot, and gangrene of the 4th and 5th toes and laterally below the 5th toe. There is also a necrotic eschar on his lateral malleolus and L heel. (+) foul odor, and some of wounds with brownish drainage. No calf tenderness. . NEUROLOGICAL: Awake and alert. Cranial nerves grossly intact. Motor grossly within normal limits. PSYCHIATRIC: Normal affect, calm and cooperative. LINE: No evidence of infection Laboratory Laboratory Tests Test 07/15/17 12:40 07/15/17 13:15 07/15/17 14:05 07/16/17 05:00 White Blood Count 12.1 9.7 Red Blood Count 3.96 3.48 Hemoglobin 11.5 10.6 Hematocrit 36.3 31.8 Mean Corpuscular Volume 91.8 91.6 Mean Corpuscular Hemoglobin 29.2 30.3 Mean Corpuscular Hemoglobin Concent 31.8 33.1 Red Cell Distribution Width 14.5 14.5 Platelet Count 250 214 Mean Platelet Volume 8.0 8.9 Neutrophils (%) (Auto) 83.4 83.5 Lymphocytes (%) (Auto) 5.5 4.7 Monocytes (%) (Auto) 8.2 7.5 Eosinophils (%) (Auto) 1.7 2.9 Basophils (%) (Auto) 1.2 1.4 Neutrophils # (Auto) 10.1 8.1 Lymphocytes # (Auto) 0.7 0.5 Monocytes # (Auto) 1.0 0.7 Eosinophils # (Auto) 0.2 0.3 Basophils # (Auto) 0.1 0.1 CBC Comment DIFF FINAL DIFF FINAL Differential Comment Prothrombin Time 31.9 Prothromb Time International Ratio 2.8 Activated Partial Thromboplast Time 64.6 Blood Urea Nitrogen 18 26 Creatinine 3.26 3.94 Random Glucose 100 66 Total Protein 7.1 6.3 Albumin 2.3 2.2 Calcium Level 8.9 8.6 Magnesium Level 2.1 Alkaline Phosphatase 106 99 Aspartate Amino Transf (AST/SGOT) 22 20 Alanine Aminotransferase (ALT/SGPT) 11 11 Total Bilirubin 0.3 0.3 Sodium Level 132 133 Potassium Level 4.3 4.3 Chloride Level 101 102 Carbon Dioxide Level 21.1 22.6 Anion Gap 10 8 Estimat Glomerular Filtration Rate 19 15 C-Reactive Protein 12.40 Lactic Acid Level 0.9 Urine Color LIGHT-YELLOW Urine Turbidity CLEAR Urine pH 7.0 Urine Specific [place] 1.005 Urine Protein 100 Urine Glucose (UA) 70 Urine Ketones NEG Urine Occult Blood SMALL Urine Nitrite NEG Urine Bilirubin NEG Urine Urobilinogen LESS THAN 2.0 Urine Leukocyte Esterase NEG Urine RBC 1 Urine WBC 3 Microscopic Urinalysis Comment CULT NOT INDICATED Date/Time Source Procedure Growth Status 07/15/17 12:50 Blood Peripheral Aerobic Blood Culture - Preliminary NO GROWTH IN 1 DAY Resulted 07/15/17 12:50 Blood Peripheral Anaerobic Blood Culture - Preliminary NO GROWTH IN 1 DAY Resulted 07/15/17 12:40 Wound Foot Gram Stain - Final Resulted 07/15/17 12:40 Wound Foot Wound Culture Pending Resulted Result Diagram: 07/16/17 0500 07/16/17 0500 Imaging RADIOLOGY STUDIES/FILMS REVIEWED Tibia/Fibula X-Ray 07/15/17 0000 Signed Impressions: Service Date/Time: Saturday, July 15, 2017 13:32 - CONCLUSION: Extensive vascular calcifications, negative for fracture. Torres Hurtado MD FACR Foot X-Ray 07/15/17 0000 Signed Impressions: Service Date/Time: Saturday, July 15, 2017 13:40 - CONCLUSION: Extensive vascular calcifications with disuse osteopenia. Torres Hurtado MD FACR Assessment and Plan Assessment and Plan IMPRESSION Multiple ischemic and infected wounds L foot, with gangrenous changes PVD Previous RAKA for gangrene ESRD, on HD T- RECOMMENDATION IV Zosyn Got dose of Vanco yesterday - check level today - redose if level is low Plans for 2 stage amputation Follow C/S Monitor progress I will follow along with you Thank you for this consultation ADDENDUM: Dr Marko Hagan, patient's general farm manager gave a call. Patient apparently has been on antibiotic for UTI. His urine culture had Morganella, and it is resistant to Zosyn. I will change his antibiotic coverage and put him on cefepime, Flagyl, and he has been getting intermittent vancomycin. Discussed Condition With Explained plan to patient and Connie Cerna MD Jul 16, 2017 12:53
--- NOTE | 2017-07-16 13:40 | MB ---
cc: NADER MOY DATE OF CONSULTATION: 07/16/2017. REASON FOR CONSULTATION: Second opinion evaluation regarding possible left leg amputation. CONSULTING PHYSICIAN: Dr. Field. HISTORY OF PRESENT ILLNESS: Mr. Zendejas is a 71-year-old male who has a history of peripheral vascular disease, diabetes and end-stage renal failure. He has a history of right leg amputation in March of 2017. He initially underwent a below-knee amputation but was converted to an above-knee amputation because it was not healing. He presented to the emergency room with a left foot infection. He has noticed necrosis with a left foot infection. He has noticed necrosis of the skin as well as a foul odor. He was seen by Dr. Field who recommended an amputation of the left lower extremity. The patient is currently awake and alert on the 7th floor. His only complaint currently is of the left foot. PAST MEDICAL HISTORY / ILLNESSES: 1. End-stage renal failure. 2. Hypertension. 3. Diabetes. 4. Peripheral vascular disease. PAST SURGICAL HISTORY: 1. Right arm hemodialysis access. 2. Right below-knee amputation. 3. Right above-knee amputation. MEDICATIONS: 1. Levaquin. 2. Atorvastatin. 3. Furosemide. 4. Diltiazem. 5. Vitamin D. 6. Coumadin. 7. Nexium. 8. Glipizide. ALLERGIES: NO KNOWN DRUG ALLERGIES. SOCIAL HISTORY: The patient denies current alcohol, tobacco or drug use. He does have a history of smoking. He has not been able to ambulate for three months. FAMILY HISTORY: Noncontributory. REVIEW OF SYSTEMS: The patient denies headache, visual changes, neck pain, chest pain, abdominal pain, nausea or vomiting, recent weight loss. He has had some recent chills. He also complains of left foot necrosis, swelling and foul odor. PHYSICAL EXAMINATION: GENERAL: The patient is a thin 71-year-old male in no acute distress. He is awake and alert. He is alert and oriented times three. He appears well-developed, well-nourished. VITAL SIGNS: Temperature 96.3, pulse 91, respirations 20, blood pressure 125/80, o2 saturation 96% on room air. HEAD, EYES, EARS, NOSE, THROAT: The patient is normocephalic. Pupils are equal. NECK: The neck is soft and nontender. Trachea is midline. ABDOMEN: The abdomen is soft, nontender and nondistended. EXTREMITIES: Examination of the bilateral upper extremities reveals no obvious pain or deformity with shoulder, elbow or wrist motion. He has intact sensation to all fingers. He has good capillary refill in all fingers. Skin is intact in his hands. Examination of the right leg reveals no pain with hip motion. He has a well-healed above-knee amputation. There is no warmth or erythema. Examination of the left leg reveals no pain or tenderness around his hip or knee. He has skin changes from peripheral vascular disease from the proximal calf down to the foot. There is significant necrosis along his toes with full skin necrosis. There is a foul odor and purulent drainage around his toes as well. I am unable to palpate dorsalis pedis pulse. IMPRESSION: 1. Left foot necrosis with infection and osteomyelitis. 2. Diabetes. 3. History of smoking. 4. End-stage renal failure. 5. Inability to ambulate x3 months. PLAN: The treatment options were discussed. At this point, the patient appears to have extensive infection of his left foot. At this point, his only option to get rid of the infection would be amputation. At this point, I discussed with him possible below-knee amputation versus above-knee amputation. Given the skin changes along his calf as well as a small wound along the proximal calf, it is unlikely that he would be able to heal a below-knee amputation. Because he has not been ambulatory and is unlikely to return to ambulatory status, an above-knee amputation may be his best option. The patient appears to be in agreement with this plan. I agree with Dr. Field's plan to proceed with a left lower extremity amputation. Please do not hesitate to contact me with any further questions. MD SERVANDO Joe/[email or web address] /7:32 AM /1:28 PM NILES
[2017-07-16] MEDS ORDERED: PIPERACIL-TAZO 2.25 GM PREMIX 50 ML IV SCH ×2 (14:00→17:00)
--- NOTE | 2017-07-16 14:26 | PD.CONS ---
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 Patient also has a history of hypertension, atrial fibrillation, peripheral vascular disease, CHF status post right AKA a few months ago now presenting with gangrene of the left foot and is scheduled unfortunately for another amputation. Patient was also being treated prior to admission for urinary tract infection with cefepime and in the dialysis unit secondary to Morganella morganii which was sensitive to cefepime but resistant to several antibiotics including Cipro, levofloxacin, piperacillin/azobactam. Patient was seen during dialysis today. No verbal complaints. Review of Systems Constitutional: COMPLAINS OF: Fatigue, DENIES: Diaphoretic episodes, Fever, Weight gain, Weight loss, Chills, Dizziness, Change in appetite, Night Sweats Cardiovascular: DENIES: Chest pain, Palpitations, Syncope, Dyspnea on Exertion , PND, Lower Extremity Edema, Orthopnea, Claudication Gastrointestinal: DENIES: Abdominal pain, Black stools, Bloody stools, Constipation, Diarrhea, Nausea, Vomiting, Difficulty Swallowing, Anorexia Musculoskeletal: COMPLAINS OF: Joint pain Past Family Social History Allergies: Coded Allergies: No Known Allergies (Unverified , 07/15/17) Past Medical History Hypertension Diabetes mellitus End-stage renal disease secondary to diabetic nephropathy Atrial fibrillation Peripheral vascular disease CHF COPD. Anemia renal disease. Nutritional risk. Poor compliance with dialysis at times unfortunately with patient skipping treatments despite repeated counseling regarding the necessity of compliance with dialysis and risks associated with noncompliance including premature . Past Surgical History Status post AKA right lower extremity. Previous placement of AV dialysis access which failed. Patient currently refusing repeat attempt. Currently being dialyzed via a hemodialysis PermCath. Patient counseled regarding risks associated with continued PermCath usage including infection. Family History Diabetes mellitus. Social History History of tobacco use and alcohol use. Physical Exam Vital Signs Vital Signs Date Time Temp Pulse Resp B/P (MAP) Pulse Ox O2 Delivery O2 Flow Rate FiO2 07/16/17 12:00 96.8 88 17 157/78 (104) 98 07/16/17 08:00 97.9 93 18 134/66 (88) 94 07/16/17 00:00 96.3 91 22 125/80 (95) 96 07/15/17 20:00 96.8 95 21 167/86 (113) 99 07/15/17 17:15 97.3 105 18 171/87 (115) 97 Physical Exam GENERAL: Patient was seen during dialysis. No verbal complaints. SKIN: Warm and dry. HEAD: Normocephalic. EYES: No scleral icterus. No injection or drainage. NECK: Supple, trachea midline. No JVD or lymphadenopathy. CARDIOVASCULAR: Regular rate and rhythm without murmurs, gallops, or rubs. RESPIRATORY: Breath sounds equal bilaterally. No accessory muscle use. GASTROINTESTINAL: Abdomen soft, non-tender, nondistended. MUSCULOSKELETAL: No cyanosis, or edema. Status post right AKA. Dressing overlying left lower extremity not disturbed. BACK: Nontender without obvious deformity. No CVA tenderness. Laboratory Laboratory Tests Test 07/16/17 05:00 White Blood Count 9.7 Red Blood Count 3.48 Hemoglobin 10.6 Hematocrit 31.8 Mean Corpuscular Volume 91.6 Mean Corpuscular Hemoglobin 30.3 Mean Corpuscular Hemoglobin Concent 33.1 Red Cell Distribution Width 14.5 Platelet Count 214 Mean Platelet Volume 8.9 Neutrophils (%) (Auto) 83.5 Lymphocytes (%) (Auto) 4.7 Monocytes (%) (Auto) 7.5 Eosinophils (%) (Auto) 2.9 Basophils (%) (Auto) 1.4 Neutrophils # (Auto) 8.1 Lymphocytes # (Auto) 0.5 Monocytes # (Auto) 0.7 Eosinophils # (Auto) 0.3 Basophils # (Auto) 0.1 CBC Comment DIFF FINAL Differential Comment Blood Urea Nitrogen 26 Creatinine 3.94 Random Glucose 66 Total Protein 6.3 Albumin 2.2 Calcium Level 8.6 Alkaline Phosphatase 99 Aspartate Amino Transf (AST/SGOT) 20 Alanine Aminotransferase (ALT/SGPT) 11 Total Bilirubin 0.3 Sodium Level 133 Potassium Level 4.3 Chloride Level 102 Carbon Dioxide Level 22.6 Anion Gap 8 Estimat Glomerular Filtration Rate 15 Random Vancomycin Level 12.2 Date/Time Source Procedure Growth Status 07/15/17 12:50 Blood Peripheral Aerobic Blood Culture - Preliminary NO GROWTH IN 1 DAY Resulted 07/15/17 12:50 Blood Peripheral Anaerobic Blood Culture - Preliminary NO GROWTH IN 1 DAY Resulted 07/15/17 12:40 Wound Foot Gram Stain - Final Resulted 07/15/17 12:40 Wound Culture - Preliminary S. Aureus Mrsa Resulted Result Diagram: 07/16/17 0500 07/16/17 0500 Assessment and Plan Problem List: (1) ESRD (end stage renal disease) on dialysis ICD Codes: N18.6 - End stage renal disease; Z99.2 - Dependence on renal dialysis Plan: Patient was seen during dialysis today. Patient has shown some poor compliance at times with hemodialysis not coming in for his dialysis treatments as scheduled and on asking that his dialysis treatment be shortened despite repeated counseling. Will continue with counseling. Patient was advised of increased risk of morbidity and mortality with noncompliance with dialysis. Also advised potential benefit of compliance. Permanent Comment: Patient receives hemodialysis Tuesday and Tuesday as an outpatient. Medication should be adjusted for the patient's end-stage renal disease when indicated. Avoid gadolinium. Last Edited By: Kimber Hagan on Jul 16, 2017 14: 24 (2) UTI (urinary tract infection) ICD Codes: N39.0 - Urinary tract infection, site not specified Plan: Patient was receiving cefepime and in the dialysis unit for UTI related to Morganella morganii. Multiple drug resistances but sensitive to cefepime. Culture report forwarded to infectious disease. We'll defer antibiotic therapy to infectious disease at this time. (3) Anemia of renal disease ICD Codes: D63.1 - Anemia in chronic kidney disease Plan: Epogen for for anemia renal disease as indicated. (4) Hypertension ICD Codes: I10 - Hypertension Status: Acute (5) Diabetes ICD Codes: E11.9 - Diabetes Status: Acute Jeremiah Hagan MD Jul 16, 2017 14:26
[2017-07-16] MEDS: metroNIDAZOLE 500 MG TAB PO SCH ×2 (14:30→22:55)
[2017-07-16] MEDS ORDERED: CEFEPIME INJ 2,000 MG in SODIUM CHLORIDE 0.9% INJ 100 ML IV SCH (14:30)
--- NOTE | 2017-07-16 17:18 | EKG ---
Date Performed: 07/16/2017 Time Performed: 13:19:14 PTAGE: 71 years EKG: ATRIAL FIBRILLATION WITH ABERRANT CONDUCTION OR VENTRICULAR PREMATURE COMPLEXES MODERATE IN TRAVENTRICULAR CONDUCTION DELAY ABNORMAL RHYTHM ECG PREVIOUS TRACING : 02/23/2017 10.31 DOCTOR: Gabriel Justin Interpretating Date/Time 07/16/2017 17:16:21
[2017-07-16] MEDS: CEFEPIME INJ 2,000 MG in SODIUM CHLORIDE 0.9% INJ 100 ML IV SCH (18:39)
--- NOTE | 2017-07-16 19:35 | RADRPT ---
EXAM DATE/TIME: 07/16/2017 19:20 [facility] COMPARISON: CHEST SINGLE AP, March 02, 2017, 5:26. INDICATIONS : Cough. MEDICAL HISTORY : Hypertension. Gastroesophageal reflux disease. Thyroid disease. Afib. Stage V SURGICAL HISTORY : Perm-cath. ENCOUNTER: Initial ACUITY: 1 day PAIN SCORE: 0/10 LOCATION: Bilateral chest FINDINGS: PA and lateral views of the chest demonstrate the lungs to be symmetrically aerated without evidence of mass, infiltrate or effusion. The cardiomediastinal contours are unremarkable. Osseous structure s are intact. There is a left-sided double-lumen central venous line in place. CONCLUSION: No acute disease. There is no evidence of pneumonia. Filiberto Viramontes MD on July 16, 2017 at 19:32 Board Certified Radiologist. This report was verified electronically.
[2017-07-16 20:00] VITALS: BP 137/73; PULSE 82; PULSE 97; RESP 17; TEMP 97.6; O2SAT 96
[2017-07-16] MEDS ORDERED: CHLORHEXIDINE GLUCONATE 2 % 1 PACK (2 CLOTHS) TOPICAL PRN (21:15)
[2017-07-16] MEDS ORDERED: LACTATED RINGER'S 1000 ML IV PRN (21:15)
[2017-07-16] MEDS ORDERED: SODIUM CHLORID 0.9% 500 ML IV PRN (21:15)
[2017-07-16] MEDS ORDERED: INSULIN HUMAN REGULAR 1,000 UNITS/10 ML VIAL SQ PRN (21:15)
[2017-07-16] MEDS ORDERED: POVIDONE IODINE 5% (ANTISEPSIS KIT) 4 APPLICATIONS EACH NARE PRN (21:15)
[2017-07-16] MEDS ORDERED: METOPROLOL TARTRATE 25 MG TAB PO PRN (21:15)
[2017-07-16 22:21] LABS: INTERNATIONAL NORMALIZED RATIO 2.2 RATIO; PROTHROMBIN TIME - PATIENT 24.6 SEC (9.8-11.6)
[2017-07-16] MEDS: diphenhydrAMINE HCL 25 MG CAP PO PRN (22:54)
[2017-07-16] MEDS: ATORVASTATIN 40 MG TAB PO SCH (22:55)
[2017-07-17] VITALS: BP 139/70; PULSE 82; RESP 17; TEMP 98.7; O2SAT 97
[2017-07-17 04:00] VITALS: BP 168/87; PULSE 100; RESP 17; TEMP 96.7; O2SAT 98
[2017-07-17] MEDS: HEPARIN SODIUM - SQ 10,000 UNITS/ML VIAL SQ SCH ×2 (04:50→16:43)
[2017-07-17] MEDS: LEVOTHYROXINE SODIUM 100 MCG TAB PO SCH (05:28)
[2017-07-17] MEDS: metroNIDAZOLE 500 MG TAB PO SCH ×3 (05:28→20:57)
[2017-07-17] MEDS: LEVOTHYROXINE SODIUM 75 MCG TAB PO SCH (05:29)
[2017-07-17 08:00] VITALS: BP 145/79; PULSE 83; RESP 16; TEMP 97.7; O2SAT 98
[2017-07-17] MEDS: CALCIUM ACETATE 667 MG CAP PO SCH ×3 (08:06→17:13)
[2017-07-17] MEDS: DILTIAZEM-CD 240 MG CAP ER PO SCH (08:09)
[2017-07-17] MEDS: PANTOPRAZOLE SOD 40 MG DELAYED RELEASE TAB PO SCH (08:09)
[2017-07-17] MEDS: FUROSEMIDE 40 MG TAB PO SCH (08:09)
[2017-07-17] MEDS: SODIUM CHLORIDE 0.9% FLUSH 10 ML FLUSH IV FLUSH SCH ×2 (08:09→21:00)
[2017-07-17] MEDS: DOCUSATE SODIUM 50 MG/SENNA 8.6 MG TAB PO SCH ×2 (08:12→20:57)
[2017-07-17 08:14] LABS: AUTOMATED NEUTROPHIL # 8.8 TH/MM3 (1.8-7.7); BASOPHIL # 0.1 TH/MM3 (0-0.2); BASOPHIL % 1.3 % (0.0-2.0); EOSINOPHIL # 0.3 TH/MM3 (0-0.4); EOSINOPHIL % 2.6 % (0.0-4.0); HEMATOCRIT 34.3 % (39.0-51.0); HEMO FLAGS DIFF FINAL; LYMPH % 6.2 % (9.0-44.0); LYMPHOCYTE # 0.7 TH/MM3 (1.0-4.8); MEAN CELL VOLUME 91.5 FL (80.0-100.0); MEAN CORPUSCULAR HEMOGLOBIN 29.4 PG (27.0-34.0); MEAN CORPUSCULAR HGB CONC 32.1 % (32.0-36.0); MONO % 9.4 % (0.0-8.0); NEUT % 80.5 % (16.0-70.0); PLATELET COUNT 217 TH/MM3 (150-450); RED BLOOD COUNT 3.75 MIL/MM3 (4.50-5.90); RED CELL DISTRIBUTION WIDTH 14.4 % (11.6-17.2); WHITE BLOOD COUNT 10.9 TH/MM3 (4.0-11.0)
[2017-07-17 08:20] LABS: APTT (PATIENT) 51.8 SEC (24.3-30.1); INTERNATIONAL NORMALIZED RATIO 1.8 RATIO; PROTHROMBIN TIME - PATIENT 20.7 SEC (9.8-11.6)
[2017-07-17 08:35] LABS: ANION GAP 11 MEQ/L (5-15); AST (GOT) 22 U/L (15-37); BICARBONATE 26.6 MEQ/L (21.0-32.0); BLOOD UREA NITROGEN 22 MG/DL (7-18); CHLORIDE 99 MEQ/L (98-107); GLOMERULAR FILTRATION RATE 18 ML/MIN (>89); POTASSIUM 4.1 MEQ/L (3.5-5.1); SODIUM (NA) 137 MEQ/L (136-145)
[2017-07-17 08:38] LABS: ALKALINE PHOSPHATASE 102 U/L (45-117); ALT (GPT) 11 U/L (12-78); TOTAL BILIRUBIN ADULT 0.3 MG/DL (0.2-1.0)
[2017-07-17] MEDS ORDERED: THROMBIN (TOPICAL) 5,000 UNIT VIAL ONE (09:23)
[2017-07-17] MEDS ORDERED: GELFOAM SIZE 100 ONE (09:23)
[2017-07-17] MEDS ORDERED: BUPIVACAINE/EPINEPHRINE 0.5% 50 ML VIAL ONE (09:23)
[2017-07-17] MEDS ORDERED: VANCOMYCIN INJ 1,000 MG in SODIUM CHLOR 0.9% 250 ML INJ 250 ML IV ONE (11:00)
--- NOTE | 2017-07-17 11:23 | HHI.PR ---
Immediate Post Op Note Procedure Date: Jul 17, 2017 Pre Op Diagnosis: Septic L foot, DM, PAD, ESRD Post Op Diagnosis: Septic L foot, DM, PAD, ESRD Surgeon: Malick Field Research Staff Member(s): Kvng Procedure: Open L BKA Findings: well perfused tissue, no purulence Complications: none apparent Specimen(s) removed: L foot Estimated blood loss: 50mL Anesthesia: General Drains: None Fluids: 600mL IVF Patient to: PACU Patient Condition: Good Date/Time of Procedure: SEE SURGICAL CARE RECORD Malick Field MD Jul 17, 2017 11:23
[2017-07-17] MEDS ORDERED: DO NOT ADM ANY ANTICOAGULANT DRUGS PRN (11:25)
[2017-07-17] MEDS ORDERED: ACETAMINOPHEN 1000 MG/100 ML 100 ML IV ONE (11:31)
[2017-07-17] MEDS ORDERED: FAMOTIDINE 20 MG/2 ML VIAL ONE (11:31)
[2017-07-17 12:00] VITALS: BP 124/60; PULSE 89; RESP 18; TEMP 97.9; O2SAT 96
[2017-07-17] MEDS ORDERED: PROPOFOL 200 MG/20 ML AMP IV ONE (12:00)
[2017-07-17] MEDS ORDERED: ONDANSETRON HCL 4 MG/2 ML VIAL IV PUSH ONE (12:00)
--- NOTE | 2017-07-17 13:30 | HHI.PR ---
Subjective Remarks pt to OR today for BKA Objective Vital Signs Date Time Temp Pulse Resp B/P (MAP) Pulse Ox O2 Delivery O2 Flow Rate FiO2 07/17/17 12:00 97.9 89 18 124/60 (81) 96 07/17/17 11:45 84 18 116/57 (76) 100 Nasal Cannula 2 07/17/17 11:30 85 18 143/79 (100) 100 Nasal Cannula 2 07/17/17 11:20 97.6 93 18 132/72 (92) 96 Nasal Cannula 2 07/17/17 08:00 97.7 83 16 145/79 (101) 98 07/17/17 04:00 96.7 100 17 168/87 (114) 98 07/17/17 00:00 98.7 82 17 139/70 (93) 97 07/16/17 20:00 97.6 82 17 137/73 (94) 96 07/16/17 20:00 97 I/O 07/16/17 07/16/17 07/16/17 07/17/17 07/17/17 07/17/17 07:00 15:00 23:00 07:00 15:00 23:00 Intake Total 500 ml 480 ml 600 ml Output Total 2600 ml Balance 500 ml -2120 ml 600 ml Intake Oral 500 ml 480 ml IV Total 600 ml Output Urine Total 600 ml Hemodialysis 2000 ml # Voids 2 # Bowel Movements 0 Result Diagram: 07/17/17 0725 07/17/17 0725 Procedures left BKA Assessment and Plan Problem List: (1) Osteomyelitis ICD Codes: M86.9 - Osteomyelitis, unspecified Status: Acute (2) PVD (peripheral vascular disease) ICD Codes: I73.9 - Peripheral vascular disease, unspecified Status: Acute Plan: discussed with patient will proceed with amputation Assessment and Plan lab and ekg reviewed pt cleared for surgery will follow post op dc plan to [facility] rehab Discharge Planning rehab [facility][note 3] Problem Qualifiers (1) Osteomyelitis: Qualified Codes: M86.9 - Osteomyelitis, unspecified Antoni Bird DO Jul 17, 2017 13:30
--- NOTE | 2017-07-17 15:08 | HHI.NPPN ---
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 Patient also has a history of hypertension, atrial fibrillation, peripheral vascular disease, CHF status post right AKA a few months ago now presenting with gangrene of the left foot and is scheduled unfortunately for another amputation. Patient was also being treated prior to admission for urinary tract infection with cefepime and in the dialysis unit secondary to Morganella morganii which was sensitive to cefepime but resistant to several antibiotics including Cipro, levofloxacin, piperacillin/azobactam. Patient was seen during dialysis today. No verbal complaints. Interval History Patient seen postop. No verbal complaints. In good spirits. Objective Data Data 07/17/17 07/18/17 19:00 07:00 Intake Total 600 ml Balance 600 ml IV Total 600 ml Vital Signs Date Time Temp Pulse Resp B/P (MAP) Pulse Ox O2 Delivery O2 Flow Rate FiO2 07/17/17 12:00 97.9 89 18 124/60 (81) 96 07/17/17 11:45 84 18 116/57 (76) 100 Nasal Cannula 2 07/17/17 11:30 85 18 143/79 (100) 100 Nasal Cannula 2 07/17/17 11:20 97.6 93 18 132/72 (92) 96 Nasal Cannula 2 07/17/17 08:00 97.7 83 16 145/79 (101) 98 07/17/17 04:00 96.7 100 17 168/87 (114) 98 07/17/17 00:00 98.7 82 17 139/70 (93) 97 07/16/17 20:00 97.6 82 17 137/73 (94) 96 07/16/17 20:00 97 -: 07/17/17 0725 07/17/17 0725 Medication Review Current Medications Piperacillin Sod/ Tazobactam Sod 50 ml @ 100 mls/hr ONCE ONCE IV Last administered on 07/15/17 12:57; Start 07/15/17 at 12:45; Stop 07/15/17 at 13:14; Status DC Vancomycin HCl 1000 mg/Sodium Chloride 250 ml @ 250 mls/hr WITH DIALYSIS ONCE IV Last administered on 07/15/17 13:53; Start 07/15/17 at 13:45; Stop 07/15/17 at 14:44; Status DC Sodium Chloride (NS Flush) 2 ml UNSCH PRN IV FLUSH FLUSH AFTER USING IV ACCESS ; Start 07/15/17 at 14:30 Sodium Chloride (NS Flush) 2 ml BID IV FLUSH Last administered on 07/17/17 08: 09; Start 07/15/17 at 21:00 Acetaminophen (Tylenol) 650 mg Q4H PRN PO TEMP > 100.4; Start 07/15/17 at 14:30 Ondansetron HCl (Zofran Inj) 4 mg Q6H PRN IVP NAUSEA OR VOMITING; Start at 14:30 Heparin Sodium (Porcine) (Heparin Inj) 5,000 units Q12H SQ Last administered on 07/16/17 17:43; Start 07/15/17 at 18:00 Naloxone HCl (Narcan Inj) 0.4 mg UNSCH PRN IV SEE LABEL COMMENTS; Start at 14:30 Senna/Docusate Sodium (Mary-Colace) 1 tab BID PO Last administered on 07/17/17 08:12; Start 07/15/17 at 21:00 Magnesium Hydroxide (Milk Of Magnesia Liq) 30 ml Q12H PRN PO MILD - MODERATE CONSTIPATION; Start 07/15/17 at 14:30 Sennosides (Senokot) 17.2 mg Q12H PRN PO MODERATE - SEVERE CONSTIPATION; Start 07/15/17 at 14:30 Bisacodyl (Dulcolax Supp) 10 mg DAILY PRN RECTAL SEVERE CONSITIPATION; Start at 14:30 Lactulose (Lactulose Liq) 30 ml DAILY PRN PO SEVERE CONSITIPATION; Start at 14:30 Atorvastatin Calcium (Lipitor) 40 mg HS PO Last administered on 07/16/17 22:55 ; Start 07/15/17 at 21:00 Calcium Acetate (Phoslo) 667 mg TID PO Last administered on 07/16/17 17:43; Start 07/15/17 at 18:00 Diltiazem HCl (Cardizem Cd) 240 mg DAILY PO Last administered on 07/17/17 08:09 ; Start 07/16/17 at 09:00 Furosemide (Lasix) 40 mg DAILY PO Last administered on 07/17/17 08:09; Start at 09:00 Sitagliptin Phosphate (Januvia) 50 mg DAILY PO ; Start 07/16/17 at 09:00; Stop at 09:00; Status DC Pantoprazole Sodium (Protonix) 40 mg DAILY PO Last administered on 07/17/17 08: 09; Start 07/16/17 at 09:00 Glipizide (Glucotrol) 2.5 mg AC BREAKFAST PO ; Start 07/16/17 at 07:00; Stop 07/16/17 at 07:00; Status DC Levothyroxine Sodium (Synthroid) 100 mcg DAILY@0600 PO Last administered on 07/17 05:28; Start 07/16/17 at 06:00 Sodium Chloride 1,000 ml @ 0 mls/hr Q0M PRN OTHER For Prime & Rinse Back; Start 07/15/17 at 15:03 Heparin Sodium (Porcine) (Heparin Inj) 8,000 units UNSCH PRN IVF WITH DIALYSIS ; Start 07/15/17 at 15:15 Sodium Chloride 1,000 ml @ 200 mls/hr Q5H PRN IV WITH DIALYSIS; Start 07/15/17 at 15:03 Sodium Chloride 1,000 ml @ 0 mls/hr Q0M PRN OTHER WITH DIALYSIS; Start 07/15/17 at 15:03 Mannitol (Mannitol Inj) 12.5 gm UNSCH PRN IV WITH DIALYSIS; Start 07/15/17 at 15 :15 Albumin Human (Albumin 25% Inj) 25 gm UNSCH PRN IV WITH DIALYSIS; Start at 15:15 Sodium Chloride (NS Flush) 5 ml UNSCH PRN IV FLUSH WITH DIALYSIS; Start at 15:15 Heparin Sodium (Porcine) (Heparin Inj) UNSCH PRN .XX WITH DIALYSIS; Start 07/15 at 15:15 Gentamicin Sulfate (Gentamicin (Dialysis) Inj) 20 mg UNSCH PRN IV WITH DIALYSIS ; Start 07/15/17 at 15:15 Ondansetron HCl (Zofran Inj) 4 mg UNSCH PRN IV WITH DIALYSIS; Start 07/15/17 at 15:15 Acetaminophen (Tylenol) 650 mg UNSCH PRN PO for headach, pain, temp > 101F; Start 07/15/17 at 15:15 Diphenhydramine HCl (Benadryl) 25 mg UNSCH PRN PO for hives/itching/ anaphylaxis Last administered on 07/16/17 22:54; Start 07/15/17 at 15:15 Nitroglycerin (Nitrostat Sl) 0.4 mg UNSCH PRN SL CHEST PAIN; Start 07/15/17 at 15:15 Clonidine (Catapres) 0.1 mg UNSCH PRN PO for BP > 180/100 X 2 readings; Start 07/15/17 at 15:15 Gelatin (Gelfoam 12 Mm/7 Mm Top) 1 foam UNSCH PRN TOP SEE LABEL COMMENTS; Start 07/15/17 at 15:15 Levothyroxine Sodium (Synthroid) 75 mcg DAILY@0600 PO Last administered on 05:29; Start 07/16/17 at 06:00 Piperacillin Sod/ Tazobactam Sod 50 ml @ 100 mls/hr Q8H IV ; Start 07/16/17 at 14:00; Status Cancel Piperacillin Sod/ Tazobactam Sod 50 ml @ 100 mls/hr Q8H IV ; Start 07/16/17 at 17:00; Stop 07/16/17 at 17:00; Status DC Cefepime HCl 2000 mg/Sodium Chloride 100 ml @ 200 mls/hr Q24H IV ; Start at 14:30; Stop 07/16/17 at 14:33; Status DC Metronidazole (Flagyl) 500 mg Q8HR PO Last administered on 07/17/17 15:01; Start 07/16/17 at 14:30 Cefepime HCl 2000 mg/Sodium Chloride 100 ml @ 200 mls/hr Q24H IV Last administered on 07/16/17 18:39; Start 07/16/17 at 16:00 Lactated Ringer's 1,000 ml @ 30 mls/hr Q24H PRN IV SEE LABEL COMMENTS; Start at 21:15; Stop 07/19/17 at 21:14 Sodium Chloride 500 ml @ 30 mls/hr [id number] PRN IV SEE LABEL COMMENTS; Start 07/16/17 at 21:15; Stop 07/19/17 at 21:14 Metoprolol Tartrate (Lopressor) 25 mg CHARGING MACHINE OPERATOR PRN PO SEE LABEL COMMENTS; Start 07/16/17 at 21:15; Stop 07/19/17 at 21:14 Povidone Iodine (Betadine 5% Antisepsis Kit) 1 applic CHARGING MACHINE OPERATOR PRN EACH NARE SEE LABEL COMMENTS; Start 07/16/17 at 21:15; Stop 07/19/17 at 21:14 Chlorhexidine Gluconate (Chlorhexidine 2% Cloth) 3 pack CHARGING MACHINE OPERATOR PRN TOPICAL SEE LABEL COMMENTS; Start 07/16/17 at 21:15; Stop 07/19/17 at 21:14 Insulin Human Regular (NovoLIN R INJ) See Protocol Table ... CHARGING MACHINE OPERATOR PRN SQ SEE PROTOCOL TABLE; Start 07/16/17 at 21:15; Stop 07/19/17 at 21:14 Bupivacaine HCl/ Epinephrine Bitart (Sensorcaine-Epi 0.5% 50 ml Inj) 50 ml STK- MED ONCE .ROUTE ; Start 07/17/17 at 09:23; Stop 07/17/17 at 09:24; Status DC Thrombin (Thrombin Top Soln) 10,000 units STK-MED ONCE .ROUTE ; Start 07/17/17 at 09:23; Stop 07/17/17 at 09:24; Status DC Gelatin (Gelfoam 100 Top) 1 foam STK-MED ONCE .ROUTE ; Start 07/17/17 at 09:23; Stop 07/17/17 at 09:24; Status DC Vancomycin HCl 1000 mg/Sodium Chloride 250 ml @ 250 mls/hr ONCE ONCE IV Last administered on 07/17/17t 12:28; Start 07/17/17 at 11:00; Stop 07/17/17 at 11:59; Status DC Oxycodone/ Acetaminophen (Percocet 5-325 Mg) 1 tab Q4H PRN PO pain 1-10; Start 07/17/17 at 11:30 Acetaminophen 100 ml @ As Directed STK-MED ONCE IV ; Start 07/17/17 at 11:31; Stop 07/17/17 at 11:32; Status DC Fentanyl Citrate (fentaNYL INJ) 200 mcg STK-MED ONCE .ROUTE ; Start 07/17/17 at 11:31; Stop 07/17/17 at 11:32; Status DC Famotidine (Pepcid Inj) 20 mg STK-MED ONCE .ROUTE ; Start 07/17/17 at 11:31; Stop 07/17/17 at 11:32; Status DC Miscellaneous Information ALL NURSING DEPARTME... UNSCH PRN .XX SEE LABEL COMMENTS; Start 07/17/17 at 11:25; Stop 07/18/17 at 11:24 Physical Exam General Appearance: Well Developed, No Acute Distress, Comfortable Ears & Nose Ears & Nose Exam: Septum Midline Pulmonary Resp Exam: Clear Bilaterally, Breath Sounds Equal, No Distress Cardiology CV Exam: Regular, Normal Sinus Rhythm Gastrointestinal/Abdomen GI Exam: Soft, Non-Tender Integumentary Skin Exam: Clear, Warm, Normal Turgor Extremeties Extremities Exam: No Edema Neurologic Neuro Exam: Alert, Awake, Speech Clear Assessment/Plan Discussed Condition With: Patient, Spouse Problem List: (1) ESRD (end stage renal disease) on dialysis ICD Codes: N18.6 - End stage renal disease; Z99.2 - Dependence on renal dialysis Plan: Next hemodialysis tentatively scheduled for Tuesday. At some point in time ideally the patient should have his PermCath converted to a fistula. Patient initially refusing but will address this issue with the patient again and hopefully will change his mind. Permanent Comment: Patient receives hemodialysis Tuesday and Tuesday as an outpatient. Medication should be adjusted for the patient's end-stage renal disease when indicated. Avoid gadolinium. Last Edited By: Kimber Hagan on Jul 16, 2017 14: 24 (2) UTI (urinary tract infection) ICD Codes: N39.0 - Urinary tract infection, site not specified Plan: Patient was receiving cefepime and in the dialysis unit for UTI related to Morganella morganii. Multiple drug resistances but sensitive to cefepime. Culture report forwarded to infectious disease. We'll defer antibiotic therapy to infectious disease at this time. (3) Anemia of renal disease ICD Codes: D63.1 - Anemia in chronic kidney disease Plan: Epogen for for anemia renal disease as indicated. (4) Hypertension ICD Codes: I10 - Hypertension Status: Acute (5) Diabetes ICD Codes: E11.9 - Diabetes Status: Acute Jeremiah Hagan MD Jul 17, 2017 15:08
[2017-07-17 16:00] VITALS: BP 136/75; PULSE 113; RESP 18; TEMP 97.5; O2SAT 96
[2017-07-17] MEDS: CEFEPIME INJ 2,000 MG in SODIUM CHLORIDE 0.9% INJ 100 ML IV SCH (16:42)
[2017-07-17] MEDS: SODIUM CHLORIDE 0.9% FLUSH 10 ML FLUSH IV FLUSH PRN (16:46)
[2017-07-17 20:00] VITALS: BP 149/86; PULSE 106; RESP 20; TEMP 98.4; O2SAT 95
[2017-07-17] MEDS: oxyCODONE/ACETAMINOPHEN 5 MG/325 MG TAB PO PRN (20:57)
[2017-07-17] MEDS: ATORVASTATIN 40 MG TAB PO SCH (20:57)
[2017-07-18] VITALS (7 sets, daily range): BP systolic 135–174; BP diastolic 70–94; PULSE 81–110; RESP 16–20; TEMP 96.8–98.3; O2SAT 96–98
[2017-07-18] MEDS: oxyCODONE/ACETAMINOPHEN 5 MG/325 MG TAB PO PRN ×2 (02:41→12:24)
[2017-07-18] MEDS: LEVOTHYROXINE SODIUM 100 MCG TAB PO SCH (06:24)
[2017-07-18] MEDS: LEVOTHYROXINE SODIUM 75 MCG TAB PO SCH (06:24)
[2017-07-18] MEDS: metroNIDAZOLE 500 MG TAB PO SCH ×3 (06:24→20:49)
[2017-07-18] MEDS: HEPARIN SODIUM - SQ 10,000 UNITS/ML VIAL SQ SCH ×2 (06:26→17:21)
--- NOTE | 2017-07-18 07:46 | PD.VS.PN ---
Subjective POD #: 1 Procedure(s): open L BKA Subjective/Hospital Course no problems overnight no pain no F/C + hungry Objective Vitals/I&O Date Time Temp Pulse Resp B/P (MAP) Pulse Ox O2 Delivery O2 Flow Rate FiO2 07/18/17 04:00 97.1 110 20 174/93 (120) 98 07/18/17 01:36 103 07/17/17 20:00 98.4 106 20 149/86 (107) 95 07/17/17 16:00 97.5 113 18 136/75 (95) 96 07/17/17 12:00 97.9 89 18 124/60 (81) 96 07/17/17 11:45 84 18 116/57 (76) 100 Nasal Cannula 2 07/17/17 11:30 85 18 143/79 (100) 100 Nasal Cannula 2 07/17/17 11:20 97.6 93 18 132/72 (92) 96 Nasal Cannula 2 07/17/17 08:00 97.7 83 16 145/79 (101) 98 07/18/17 07/18/17 07/18/17 07:00 15:00 23:00 Intake Total 0 ml Output Total 500 ml Balance -500 ml Exam: BKA open with no purulence or erythema mild edema Laboratory Date/Time Source Procedure Growth Status 07/15/17 12:50 Blood Peripheral Aerobic Blood Culture - Preliminary NO GROWTH IN 2 DAYS Resulted 07/15/17 12:50 Blood Peripheral Anaerobic Blood Culture - Preliminary NO GROWTH IN 2 DAYS Resulted 07/15/17 12:40 Wound Foot Gram Stain - Final Complete 07/15/17 12:40 Wound Culture - Final S. Aureus Mrsa Complete Assessment and Plan Plan 1.continue BID dressing changes 2. Ok to have renal diet from surgical standpoint 3. Completion L AKA likely Wed 4. Continue antibiotics 5. PT/OOB Malick Field MD Jul 18, 2017 07:46
[2017-07-18] MEDS: DOCUSATE SODIUM 50 MG/SENNA 8.6 MG TAB PO SCH ×2 (08:14→20:49)
[2017-07-18] MEDS: DILTIAZEM-CD 240 MG CAP ER PO SCH (08:14)
[2017-07-18] MEDS: PANTOPRAZOLE SOD 40 MG DELAYED RELEASE TAB PO SCH (08:14)
[2017-07-18] MEDS: FUROSEMIDE 40 MG TAB PO SCH (08:14)
[2017-07-18] MEDS: SODIUM CHLORIDE 0.9% FLUSH 10 ML FLUSH IV FLUSH SCH ×2 (08:15→20:51)
[2017-07-18] MEDS: CALCIUM ACETATE 667 MG CAP PO SCH ×3 (08:15→17:20)
--- NOTE | 2017-07-18 10:53 | HHI.IDPN ---
Subjective Subjective Remarks Patient is a 71-year-old male, with known history of peripheral vascular disease , admitted to the hospital for further evaluation of his left foot. Patient has been in a rehabilitation facility, and being followed by a clinic specialist. He has wounds on the medial aspect of his left foot as well as the 4th and fifth toes. According to the patient over the last 2 weeks he has noted some odor coming out of the left foot. He has not really seen what his foot looks like post day always have a dressing around the foot. He has not had any fever or chills or sweats. His complaining of pain on the left foot. Patient has not been ambulating in the rehabilitation facility. He had undergone a right [id number] amputation back in February 2017 for gangrene. During that admission he was septic and had positive blood cultures. The stump healed without any problem. Since admission he has not had any fever. His WBC is elevated. Patient has end-stage renal disease, and gets hemodialysis every Tuesday and Tuesday. He received 1 dose of Vanco and Zosyn yesterday , and has not been on any antibiotics since. Vascular surgery has seen the patient and surgical plans have been noted. Infectious disease consultation has been requested to evaluate the patient. 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 Vital Signs Date Time Temp Pulse Resp B/P (MAP) Pulse Ox O2 Delivery O2 Flow Rate FiO2 07/18/17 08:00 97.3 104 17 165/94 (117) 96 07/18/17 04:00 97.1 110 20 174/93 (120) 98 07/18/17 01:36 103 07/17/17 20:00 98.4 106 20 149/86 (107) 95 07/17/17 16:00 97.5 113 18 136/75 (95) 96 07/17/17 12:00 97.9 89 18 124/60 (81) 96 07/17/17 11:45 84 18 116/57 (76) 100 Nasal Cannula 2 07/17/17 11:30 85 18 143/79 (100) 100 Nasal Cannula 2 07/17/17 11:20 97.6 93 18 132/72 (92) 96 Nasal Cannula 2 . Laboratory Tests Test 07/17/17 07:25 White Blood Count 10.9 TH/MM3 Red Blood Count 3.75 MIL/MM3 Hemoglobin 11.0 GM/DL Hematocrit 34.3 % Mean Corpuscular Volume 91.5 FL Mean Corpuscular Hemoglobin 29.4 PG Mean Corpuscular Hemoglobin Concent 32.1 % Red Cell Distribution Width 14.4 % Platelet Count 217 TH/MM3 Mean Platelet Volume 8.2 FL Neutrophils (%) (Auto) 80.5 % Lymphocytes (%) (Auto) 6.2 % Monocytes (%) (Auto) 9.4 % Eosinophils (%) (Auto) 2.6 % Basophils (%) (Auto) 1.3 % Neutrophils # (Auto) 8.8 TH/MM3 Lymphocytes # (Auto) 0.7 TH/MM3 Monocytes # (Auto) 1.0 TH/MM3 Eosinophils # (Auto) 0.3 TH/MM3 Basophils # (Auto) 0.1 TH/MM3 CBC Comment DIFF FINAL Differential Comment Laboratory Tests Test 07/17/17 07:25 Blood Urea Nitrogen 22 MG/DL Creatinine 3.38 MG/DL Random Glucose 90 MG/DL Total Protein 6.9 GM/DL Albumin 2.2 GM/DL Calcium Level 8.6 MG/DL Alkaline Phosphatase 102 U/L Aspartate Amino Transf (AST/SGOT) 22 U/L Alanine Aminotransferase (ALT/SGPT) 11 U/L Total Bilirubin 0.3 MG/DL Sodium Level 137 MEQ/L Potassium Level 4.1 MEQ/L Chloride Level 99 MEQ/L Carbon Dioxide Level 26.6 MEQ/L Anion Gap 11 MEQ/L Estimat Glomerular Filtration Rate 18 ML/MIN Microbiology Date/Time Source Procedure Growth Status 07/15/17 12:50 Blood Peripheral Aerobic Blood Culture - Preliminary NO GROWTH IN 2 DAYS Resulted 07/15/17 12:50 Blood Peripheral Anaerobic Blood Culture - Preliminary NO GROWTH IN 2 DAYS Resulted 07/15/17 12:35 Blood Peripheral Aerobic Blood Culture - Preliminary NO GROWTH IN 2 DAYS Resulted 07/15/17 12:35 Blood Peripheral Anaerobic Blood Culture - Preliminary NO GROWTH IN 2 DAYS Resulted 07/15/17 12:40 Wound Foot Gram Stain - Final Complete 07/15/17 12:40 Wound Culture - Final S. Aureus Mrsa Complete Imaging Last Impressions Chest X-Ray 07/16/17 0000 Signed Impressions: Service Date/Time: Sunday, July 16, 2017 19:20 - CONCLUSION: No acute disease. There is no evidence of pneumonia. Filiberto Viramontes MD Tibia/Fibula X-Ray 07/15/17 0000 Signed Impressions: Service Date/Time: Saturday, July 15, 2017 13:32 - CONCLUSION: Extensive vascular calcifications, negative for fracture. Torres Hurtado MD FACR Foot X-Ray 07/15/17 0000 Signed Impressions: Service Date/Time: Saturday, July 15, 2017 13:40 - CONCLUSION: Extensive vascular calcifications with disuse osteopenia. Torres Hurtado MD FACR Physical Exam GENERAL: awake and alert, not in respiratory distress. SKIN: Warm and dry. No generalized rash. HEAD: Atraumatic. Normocephalic. No temporal wasting, or tenderness. EYES: [place] conjunctiva. No petechia or hemorrhage. Pupils equal, round and reactive to light. No scleral icterus. No injection or drainage. EARS, NOSE AND THROAT: Nose without bleeding or purulent nasal discharge. Mucous membranes pink and moist. No oral lesions noted. NECK: Trachea midline. Supple and not tender, no meningeal signs CARDIOVASCULAR: Regular rate and rhythm. No murmurs, rubs or gallops heard. Permacath R chest, no evidence of infection RESPIRATORY: Clear to auscultation. Breath sounds equal bilaterally. No rales , wheezing or rhonchi ABDOMEN: Soft, non-tender, nondistended. Bowel sounds present and normoactive. No guarding. No rebound. No organomegaly. EXTREMITIES: S/P RAKA - well healed stump. LLE - has dressing to his BKA NEUROLOGICAL: grossly non-focal. PSYCHIATRIC: Normal affect, calm and cooperative. LINE: No evidence of infection Assessment & Plan Remarks IMPRESSION Multiple ischemic and infected wounds L foot, with gangrenous changes PVD Previous RAKA for gangrene ESRD, on HD T- RECOMMENDATION IV Zosyn Continue IV vanco - will dose with HD Plans for 2 stage amputation per vascular surgery - OR again on Tuesday Follow C/S Monitor progress Connie Cerna MD Jul 18, 2017 10:53
--- NOTE | 2017-07-18 11:36 | HHI.PR ---
Subjective Remarks bka complete resting quietlyy requests regular diet without calorie restriction Objective Vital Signs Date Time Temp Pulse Resp B/P (MAP) Pulse Ox O2 Delivery O2 Flow Rate FiO2 07/18/17 08:00 97.3 104 17 165/94 (117) 96 07/18/17 04:00 97.1 110 20 174/93 (120) 98 07/18/17 01:36 103 07/17/17 20:00 98.4 106 20 149/86 (107) 95 07/17/17 16:00 97.5 113 18 136/75 (95) 96 07/17/17 12:00 97.9 89 18 124/60 (81) 96 07/17/17 11:45 84 18 116/57 (76) 100 Nasal Cannula 2 I/O 07/17/17 07/17/17 07/17/17 07/18/17 07/18/17 07/18/17 07:00 15:00 23:00 07:00 15:00 23:00 Intake Total 600 ml 0 ml Output Total 500 ml Balance 600 ml -500 ml Intake Oral 0 ml IV Total 600 ml Output Urine Total 500 ml # Voids 1 # Bowel Movements 0 Result Diagram: 07/17/17 0725 07/17/17 0725 Procedures left BKA Objective Remarks GENERAL: Well-nourished, well-developed patient. SKIN: Warm and dry. HEAD: Normocephalic. EYES: No scleral icterus. No injection or drainage. NECK: Supple, trachea midline. No JVD or lymphadenopathy. CARDIOVASCULAR: Regular rate and rhythm without murmurs, gallops, or rubs. RESPIRATORY: Breath sounds equal bilaterally. No accessory muscle use. GASTROINTESTINAL: Abdomen soft, non-tender, nondistended. EXTREMITIES: R aboveknee amp well healed new left below knee amp NEUROLOGICAL: Awake, alert, and oriented x 3. Non-focal. Medications and IVs Inpatient Medications Acetaminophen (Tylenol) 650 mg UNSCH PRN PO for headach, pain, temp > 101F; Start 07/15/17 at 15:15 Albumin Human (Albumin 25% Inj) 25 gm UNSCH PRN IV WITH DIALYSIS; Start at 15:15 Atorvastatin Calcium (Lipitor) 40 mg HS PO Last administered on 07/17/17t 20:57 ; Start 07/15/17 at 21:00 Bisacodyl (Dulcolax Supp) 10 mg DAILY PRN RECTAL SEVERE CONSITIPATION; Start at 14:30 Calcium Acetate (Phoslo) 667 mg TID PO Last administered on 07/18/17 08:15; Start 07/15/17 at 18:00 Cefepime HCl 2000 mg/Sodium Chloride 100 ml @ 200 mls/hr Q24H IV Last administered on 07/17/17 16:42; Start 07/16/17 at 16:00 Chlorhexidine Gluconate (Chlorhexidine 2% Cloth) 3 pack [employer]ER PRN TOPICAL SEE LABEL COMMENTS; Start 07/16/17 at 21:15; Stop 07/19/17 at 21:14 Clonidine (Catapres) 0.1 mg UNSCH PRN PO for BP > 180/100 X 2 readings; Start 07/15/17 at 15:15 Diltiazem HCl (Cardizem Cd) 240 mg DAILY PO Last administered on 07/18/17 08:14 ; Start 07/16/17 at 09:00 Diphenhydramine HCl (Benadryl) 25 mg UNSCH PRN PO for hives/itching/ anaphylaxis Last administered on 07/16/17 22:54; Start 07/15/17 at 15:15 Furosemide (Lasix) 40 mg DAILY PO Last administered on 07/18/17 08:14; Start at 09:00 Gelatin (Gelfoam 12 Mm/7 Mm Top) 1 foam UNSCH PRN TOP SEE LABEL COMMENTS; Start 07/15/17 at 15:15 Gentamicin Sulfate (Gentamicin (Dialysis) Inj) 20 mg UNSCH PRN IV WITH DIALYSIS ; Start 07/15/17 at 15:15 Glipizide (Glucotrol) 2.5 mg AC BREAKFAST PO ; Start 07/16/17 at 07:00; Stop 07/16/17 at 07:00; Status DC Heparin Sodium (Porcine) (Heparin Inj) UNSCH PRN .XX WITH DIALYSIS; Start 07/15 at 15:15 Insulin Human Regular (NovoLIN R INJ) See Protocol Table ... [employer]ER PRN SQ SEE PROTOCOL TABLE; Start 07/16/17 at 21:15; Stop 07/19/17 at 21:14 Lactated Ringer's 1,000 ml @ 30 mls/hr Q24H PRN IV SEE LABEL COMMENTS; Start at 21:15; Stop 07/19/17 at 21:14 Lactulose (Lactulose Liq) 30 ml DAILY PRN PO SEVERE CONSITIPATION; Start at 14:30 Levothyroxine Sodium (Synthroid) 75 mcg DAILY@0600 PO Last administered on 06:24; Start 07/16/17 at 06:00 Magnesium Hydroxide (Milk Of Magnesia Liq) 30 ml Q12H PRN PO MILD - MODERATE CONSTIPATION; Start 07/15/17 at 14:30 Mannitol (Mannitol Inj) 12.5 gm UNSCH PRN IV WITH DIALYSIS; Start 07/15/17 at 15 :15 Metoprolol Tartrate (Lopressor) 25 mg [employer]ER PRN PO SEE LABEL COMMENTS; Start 07/16/17 at 21:15; Stop 07/19/17 at 21:14 Metronidazole (Flagyl) 500 mg Q8HR PO Last administered on 07/18/17 06:24; Start 07/16/17 at 14:30 Miscellaneous Information ALL NURSING DEPARTME... UNSCH PRN .XX SEE LABEL COMMENTS; Start 07/17/17 at 11:25; Stop 07/18/17 at 11:24; Status DC Naloxone HCl (Narcan Inj) 0.4 mg UNSCH PRN IV SEE LABEL COMMENTS; Start at 14:30 Nitroglycerin (Nitrostat Sl) 0.4 mg UNSCH PRN SL CHEST PAIN; Start 07/15/17 at 15:15 Ondansetron HCl (Zofran Inj) 4 mg UNSCH PRN IV WITH DIALYSIS; Start 07/15/17 at 15:15 Oxycodone/ Acetaminophen (Percocet 5-325 Mg) 1 tab Q4H PRN PO pain 1-10 Last administered on 07/18/17 02:41; Start 07/17/17 at 11:30 Pantoprazole Sodium (Protonix) 40 mg DAILY PO Last administered on 07/18/17 08: 14; Start 07/16/17 at 09:00 Piperacillin Sod/ Tazobactam Sod 50 ml @ 100 mls/hr Q8H IV ; Start 07/16/17 at 17:00; Stop 07/16/17 at 17:00; Status DC Povidone Iodine (Betadine 5% Antisepsis Kit) 1 applic [employer]ER PRN EACH NARE SEE LABEL COMMENTS; Start 07/16/17 at 21:15; Stop 07/19/17 at 21:14 Senna/Docusate Sodium (Mary-Colace) 1 tab BID PO Last administered on 07/18/17t 08:14; Start 07/15/17 at 21:00 Sennosides (Senokot) 17.2 mg Q12H PRN PO MODERATE - SEVERE CONSTIPATION; Start 07/15/17 at 14:30 Sitagliptin Phosphate (Januvia) 50 mg DAILY PO ; Start 07/16/17 at 09:00; Stop at 09:00; Status DC Sodium Chloride 500 ml @ 30 mls/hr [id number] PRN IV SEE LABEL COMMENTS; Start 07/16/17 at 21:15; Stop 07/19/17 at 21:14 Sodium Chloride (NS Flush) 5 ml UNSCH PRN IV FLUSH WITH DIALYSIS; Start at 15:15 Vancomycin HCl 1000 mg/Sodium Chloride 250 ml @ 250 mls/hr WITH DIALYSIS IV ; Start 07/19/17 at 08:00 Assessment and Plan Problem List: (1) Osteomyelitis ICD Codes: M86.9 - Osteomyelitis, unspecified Status: Acute (2) PVD (peripheral vascular disease) ICD Codes: I73.9 - Peripheral vascular disease, unspecified Status: Acute Plan: discussed with patient will proceed with amputation Assessment and Plan advance diet ck lab am Problem Qualifiers (1) Osteomyelitis: Qualified Codes: M86.9 - Osteomyelitis, unspecified Antoni Bird DO Jul 18, 2017 11:36
[2017-07-18] MEDS: CEFEPIME INJ 2,000 MG in SODIUM CHLORIDE 0.9% INJ 100 ML IV SCH (17:20)
[2017-07-18] MEDS ORDERED: ALUMINUM/MAGNESIUM/SIMETH 30 ML CUP PO PRN (18:00)
[2017-07-18] MEDS: ATORVASTATIN 40 MG TAB PO SCH (20:49)
[2017-07-19 04:00] VITALS: BP 117/80; PULSE 89; RESP 18; TEMP 96.6; O2SAT 96
[2017-07-19] MEDS: LEVOTHYROXINE SODIUM 75 MCG TAB PO SCH (06:03)
[2017-07-19] MEDS: LEVOTHYROXINE SODIUM 100 MCG TAB PO SCH (06:03)
[2017-07-19] MEDS: HEPARIN SODIUM - SQ 10,000 UNITS/ML VIAL SQ SCH ×2 (06:03→16:08)
[2017-07-19] MEDS: metroNIDAZOLE 500 MG TAB PO SCH ×3 (06:03→19:53)
[2017-07-19 08:00] VITALS: BP 159/89; PULSE 106; RESP 18; TEMP 97; O2SAT 97
--- NOTE | 2017-07-19 08:35 | MP ---
cc: MALICK FIELD MD DATE OF SURGERY: 07/17/2017 PREOPERATIVE DIAGNOSIS Infected left foot, non-salvageable. POSTOPERATIVE DIAGNOSIS Infected left foot, non-salvageable. PROCEDURE Open left below-knee amputation. ATTENDING SURGEON Malick Field. ANESTHESIA General. INDICATIONS Mr. Zendejas is a gentleman who has a right above-knee amputation, diabetes and no longer ambulatory for several months secondary to severe degree of debilitation. He presented to the emergency department with a septic left foot. He is taken to the operating room for the first of a two-stage amputation. I had a long discussion with the patient and his about the need for amputation below the knee and then separate attending surgery, and agreed with the procedure. DESCRIPTION OF PROCEDURE Informed consent was obtained. The patient was taken to the operating room and placed supine on the operating table. An appropriate timeout was taken to ensure the patient's identity, operative site and planned procedure. He was on systemic and therapeutic antibiotics and these were appropriately dosed preoperatively and will be continued postoperatively for ongoing therapy of his diabetic foot infection. Everyone in the room agreed with the timeout and we proceeded. His left leg was prepped and draped. An incision was made in the below knee area with a #10 blade, carried down through the subcutaneous tissue with electrocautery. The saphenous vein was divided between silk ties. The very calcified anterior tibial artery and posterior tibial artery were divided between silk ties as well. The bone was divided with an oscillating saw and the posterior muscles divided with electrocautery. The specimen was passed off the table. The wound was irrigated, made hemostatic and wrapped in Adaptic, Kerlix and Ankit bandage. The sponge and needle counts were correct at the end of the case. I was present and scrubbed and performed the entire procedure. Malick Field MD RJF/BYRON /11:20 AM /8:24 AM
[2017-07-19] MEDS: CALCIUM ACETATE 667 MG CAP PO SCH ×3 (08:37→17:48)
[2017-07-19] MEDS: DOCUSATE SODIUM 50 MG/SENNA 8.6 MG TAB PO SCH ×2 (09:00→19:56)
[2017-07-19] MEDS: SODIUM CHLORIDE 0.9% FLUSH 10 ML FLUSH IV FLUSH SCH ×2 (09:00→19:56)
--- NOTE | 2017-07-19 10:39 | HHI.IDPN ---
Subjective Subjective Remarks Patient is a 71-year-old male, with known history of peripheral vascular disease , admitted to the hospital for further evaluation of his left foot. Patient has been in a rehabilitation facility, and being followed by a equal opportunity specialist. He has wounds on the medial aspect of his left foot as well as the 4th and fifth toes. According to the patient over the last 2 weeks he has noted some odor coming out of the left foot. He has not really seen what his foot looks like post day always have a dressing around the foot. He has not had any fever or chills or sweats. His complaining of pain on the left foot. Patient has not been ambulating in the rehabilitation facility. He had undergone a right ekgaf-[id number]-pyfi amputation back in February 2017 for gangrene. During that admission he was septic and had positive blood cultures. The stump healed without any problem. Since admission he has not had any fever. His WBC is elevated. Patient has end-stage renal disease, and gets hemodialysis every Tuesday and Tuesday. He received 1 dose of Vanco and Zosyn yesterday , and has not been on any antibiotics since. Vascular surgery has seen the patient and surgical plans have been noted. Infectious disease consultation has been requested to evaluate the patient. 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 Vital Signs Date Time Temp Pulse Resp B/P (MAP) Pulse Ox O2 Delivery O2 Flow Rate FiO2 07/19/17 08:00 97.0 106 18 159/89 (112) 97 07/19/17 04:00 96.6 89 18 117/80 (92) 96 07/18/17 20:00 96.8 84 18 139/76 (97) 96 07/18/17 19:59 81 07/18/17 16:00 98.3 108 16 142/70 (94) 96 07/18/17 13:27 20 07/18/17 12:00 98.3 108 17 135/91 (178) 97 Imaging Last Impressions Chest X-Ray 07/16/17 0000 Signed Impressions: Service Date/Time: Sunday, July 16, 2017 19:20 - CONCLUSION: No acute disease. There is no evidence of pneumonia. Filiberto Viramontes MD Tibia/Fibula X-Ray 07/15/17 0000 Signed Impressions: Service Date/Time: Saturday, July 15, 2017 13:32 - CONCLUSION: Extensive vascular calcifications, negative for fracture. Torres Hurtado MD FACR Foot X-Ray 07/15/17 0000 Signed Impressions: Service Date/Time: Saturday, July 15, 2017 13:40 - CONCLUSION: Extensive vascular calcifications with disuse osteopenia. Torres Hurtado MD FACR Physical Exam GENERAL: awake and alert, not in respiratory distress. SKIN: Warm and dry. No generalized rash. HEAD: Atraumatic. Normocephalic. No temporal wasting, or tenderness. EYES: [place] conjunctiva. No petechia or hemorrhage. Pupils equal, round and reactive to light. No scleral icterus. No injection or drainage. EARS, NOSE AND THROAT: Nose without bleeding or purulent nasal discharge. Mucous membranes pink and moist. No oral lesions noted. NECK: Trachea midline. Supple and not tender, no meningeal signs CARDIOVASCULAR: Regular rate and rhythm. No murmurs, rubs or gallops heard. Permacath R chest, no evidence of infection RESPIRATORY: Clear to auscultation. Breath sounds equal bilaterally. No rales , wheezing or rhonchi ABDOMEN: Soft, non-tender, nondistended. Bowel sounds present and normoactive. No guarding. No rebound. No organomegaly. EXTREMITIES: S/P RAKA - well healed stump. LLE - has dressing to his BKA, has breakthrough bleeding in dressing NEUROLOGICAL: grossly non-focal. PSYCHIATRIC: Normal affect, calm and cooperative. LINE: No evidence of infection Assessment & Plan Remarks IMPRESSION Multiple ischemic and infected wounds L foot, with gangrenous changes PVD Previous RAKA for gangrene ESRD, on HD RECOMMENDATION IV Zosyn Continue IV vanco - will dose with HD Plans for 2 stage amputation per vascular surgery - OR again on Tuesday Follow C/S Monitor progress Will not need loong course of IV once final AKA done Connie Cerna MD Jul 19, 2017 10:39
--- NOTE | 2017-07-19 10:39 | HHI.NPPN ---
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 Patient also has a history of hypertension, atrial fibrillation, peripheral vascular disease, CHF status post right AKA a few months ago now presenting with gangrene of the left foot and is scheduled unfortunately for another amputation. Patient was also being treated prior to admission for urinary tract infection with cefepime and in the dialysis unit secondary to Morganella morganii which was sensitive to cefepime but resistant to several antibiotics including Cipro, levofloxacin, piperacillin/azobactam. Patient was seen during dialysis today. No verbal complaints. Interval History Seen during HD today. Access working well s/p L BKA with impending L AKA 07/20 Denies any current complaints (Vera June) Objective Data Data Vital Signs Date Time Temp Pulse Resp B/P (MAP) Pulse Ox O2 Delivery O2 Flow Rate FiO2 07/19/17 08:00 97.0 106 18 159/89 (112) 97 07/19/17 04:00 96.6 89 18 117/80 (92) 96 07/18/17 20:00 96.8 84 18 139/76 (97) 96 07/18/17 19:59 81 07/18/17 16:00 98.3 108 16 142/70 (94) 96 07/18/17 13:27 20 07/18/17 12:00 98.3 108 17 135/91 (106) 97 (Vera June) -: 07/17/17 0725 07/17/17 0725 Imaging Last Impressions Chest X-Ray 07/16/17 0000 Signed Impressions: Service Date/Time: Sunday, July 16, 2017 19:20 - CONCLUSION: No acute disease. There is no evidence of pneumonia. Filiberto Viramontes MD Tibia/Fibula X-Ray 07/15/17 0000 Signed Impressions: Service Date/Time: Saturday, July 15, 2017 13:32 - CONCLUSION: Extensive vascular calcifications, negative for fracture. Torres Hurtado MD FACR Foot X-Ray 07/15/17 0000 Signed Impressions: Service Date/Time: Saturday, July 15, 2017 13:40 - CONCLUSION: Extensive vascular calcifications with disuse osteopenia. Torres Hurtado MD FACR Medication Review Current Medications Medications (Trade) Dose Ordered Sig/Libia Route Start Time Stop Time Status Last Admin (NS Flush) 2 ml UNSCH PRN IV FLUSH 07/15/17 14:30 07/17/17 16:46 (NS Flush) 2 ml BID IV FLUSH 07/15/17 21:00 07/18/17 20:51 (Tylenol) 650 mg Q4H PRN PO 07/15/17 14:30 (Zofran Inj) 4 mg Q6H PRN IVP 07/15/17 14:30 (Heparin Inj) 5,000 units Q12H SQ 07/15/17 18:00 07/19/17 06:03 (Narcan Inj) 0.4 mg UNSCH PRN IV 07/15/17 14:30 (Mary-Colace) 1 tab BID PO 07/15/17 21:00 07/18/17 20:49 (Milk Of Magnesia Liq) 30 ml Q12H PRN PO 07/15/17 14:30 (Senokot) 17.2 mg Q12H PRN PO 07/15/17 14:30 (Dulcolax Supp) 10 mg DAILY PRN RECTAL 07/15/17 14:30 (Lactulose Liq) 30 ml DAILY PRN PO 07/15/17 14:30 (Lipitor) 40 mg HS PO 07/15/17 21:00 07/18/17 20:49 (Phoslo) 667 mg TID PO 07/15/17 18:00 07/18/17 17:20 (Cardizem Cd) 240 mg DAILY PO 07/16/17 09:00 07/18/17 08:14 (Lasix) 40 mg DAILY PO 07/16/17 09:00 07/18/17 08:14 (Protonix) 40 mg DAILY PO 07/16/17 09:00 07/18/17 08:14 (Synthroid) 100 mcg DAILY@0600 PO 07/16/17 06:00 07/19/17 06:03 Sodium Chloride 1,000 ml @ 0 mls/hr Q0M PRN OTHER 07/15/17 15:03 (Heparin Inj) 8,000 units UNSCH PRN IVF 07/15/17 15:15 Sodium Chloride 1,000 ml @ 200 mls/hr Q5H PRN IV 07/15/17 15:03 Sodium Chloride 1,000 ml @ 0 mls/hr Q0M PRN OTHER 07/15/17 15:03 (Mannitol Inj) 12.5 gm UNSCH PRN IV 07/15/17 15:15 (Albumin 25% Inj) 25 gm UNSCH PRN IV 07/15/17 15:15 (NS Flush) 5 ml UNSCH PRN IV FLUSH 07/15/17 15:15 (Heparin Inj) UNSCH PRN .XX 07/15/17 15:15 (Gentamicin (Dialysis) Inj) 20 mg UNSCH PRN IV 07/15/17 15:15 (Zofran Inj) 4 mg UNSCH PRN IV 07/15/17 15:15 (Tylenol) 650 mg UNSCH PRN PO 07/15/17 15:15 (Benadryl) 25 mg UNSCH PRN PO 07/15/17 15:15 07/16/17 22:54 (Nitrostat Sl) 0.4 mg UNSCH PRN SL 07/15/17 15:15 (Catapres) 0.1 mg UNSCH PRN PO 07/15/17 15:15 (Gelfoam 12 Mm/7 Mm Top) 1 foam UNSCH PRN TOP 07/15/17 15:15 (Synthroid) 75 mcg DAILY@0600 PO 07/16/17 06:00 07/19/17 06:03 (Flagyl) 500 mg Q8HR PO 07/16/17 14:30 07/19/17 06:03 Cefepime HCl 2000 mg/Sodium Chloride 100 ml @ 200 mls/hr Q24H IV 07/16/17 16:00 07/18/17 17:20 Lactated Ringer's 1,000 ml @ 30 mls/hr Q24H PRN IV 07/16/17 21:15 07/19/17 21:14 Sodium Chloride 500 ml @ 30 mls/hr [id number] PRN IV 07/16/17 21:15 07/19/17 21:14 (Lopressor) 25 mg BRUSH MACHINE SETTER PRN PO 07/16/17 21:15 07/19/17 21:14 (Betadine 5% Antisepsis Kit) 1 applic BRUSH MACHINE SETTER PRN EACH NARE 07/16/17 21:15 07/19/17 21:14 (Chlorhexidine 2% Cloth) 3 pack BRUSH MACHINE SETTER PRN TOPICAL 07/16/17 21:15 07/19/17 21:14 (NovoLIN R INJ) See Protocol Table ... BRUSH MACHINE SETTER PRN SQ 07/16/17 21:15 07/19/17 21:14 (Percocet 5-325 Mg) 1 tab Q4H PRN PO 07/17/17 11:30 07/18/17 12:24 Vancomycin HCl 1000 mg/Sodium Chloride 250 ml @ 250 mls/hr WITH DIALYSIS IV 07/19/17 08:00 (Mag-Al Plus Susp Liq) 30 ml QID PRN PO 07/18/17 18:00 07/18/17 17:33 (Vera June) Physical Exam General Appearance: Well Developed, No Acute Distress, Comfortable (Vera June) Eyes Eye Exam: Pupils Equal, Pupils Reactive (Vera June) Pulmonary Resp Exam: Clear Bilaterally, Breath Sounds Equal, No Distress (Vera June) Cardiology CV Exam: Regular, Normal Sinus Rhythm (Vera June) Gastrointestinal/Abdomen GI Exam: Soft, Non-Tender (Vera June) Integumentary Skin Exam: Clear, Warm, Normal Turgor (Vera June) Extremeties Extremities Exam: No Edema (Vera June) Neurologic Neuro Exam: Alert, Awake, Speech Clear (Vera June) Assessment/Plan Discussed Condition With: Patient, Spouse Problem List: (1) ESRD (end stage renal disease) on dialysis ICD Codes: N18.6 - End stage renal disease; Z99.2 - Dependence on renal dialysis Plan: Seen during HD today UF of 2L Continue TTS schedule Permanent Comment: Patient receives hemodialysis Tuesday and Tuesday as an outpatient. Medication should be adjusted for the patient's end-stage renal disease when indicated. Avoid gadolinium. Last Edited By: Kimber Hagan on Jul 16, 2017 14: 24 (2) UTI (urinary tract infection) ICD Codes: N39.0 - Urinary tract infection, site not specified Plan: Patient was receiving cefepime and in the dialysis unit for UTI related to Morganella morganii. Multiple drug resistances but sensitive to cefepime. Culture report forwarded to infectious disease. We'll defer antibiotic therapy to infectious disease at this time. UA in house clear with no cx indicated (3) Anemia of renal disease ICD Codes: D63.1 - Anemia in chronic kidney disease Plan: Epogen for for anemia renal disease as indicated. (4) Hypertension ICD Codes: I10 - Hypertension Status: Acute (5) Diabetes ICD Codes: E11.9 - Diabetes Status: Acute (Vera June) Plan The exam, history, and the medical decision-making described in the above note were completed with the assistance of the PAShawn. I reviewed and agree with the findings presented. (Jeremiah Hagan MD) Vera June Jul 19, 2017 10:39 Jeremiah Hagan MD Jul 20, 2017 16:01
--- NOTE | 2017-07-19 10:58 | HHI.PR ---
Subjective Remarks Patient alert and oriented. Denies any CP or SOB Objective Vital Signs Date Time Temp Pulse Resp B/P (MAP) Pulse Ox O2 Delivery O2 Flow Rate FiO2 07/19/17 08:00 97.0 106 18 159/89 (112) 97 07/19/17 04:00 96.6 89 18 117/80 (92) 96 07/18/17 20:00 96.8 84 18 139/76 (97) 96 07/18/17 19:59 81 07/18/17 16:00 98.3 108 16 142/70 (94) 96 07/18/17 13:27 20 07/18/17 12:00 98.3 108 17 135/91 (106) 97 I/O 07/18/17 07/18/17 07/18/17 07/19/17 07/19/17 07/19/17 06:59 14:59 22:59 06:59 14:59 22:59 Intake Total 0 ml 240 ml 240 ml Output Total 500 ml 100 ml 300 ml Balance -500 ml 140 ml -60 ml Intake Oral 0 ml 240 ml 240 ml Output Urine Total 500 ml 100 ml 300 ml # Voids 1 # Bowel Movements 0 0 0 Result Diagram: 07/17/17 0725 07/17/17 0725 Procedures left BKA on 07/17 Objective Remarks GENERAL: alert SKIN: Warm and dry. Left below knee amputation with drew on. HEAD: Normocephalic. EYES: No scleral icterus. No injection or drainage. NECK: Supple, trachea midline. No JVD or lymphadenopathy. CARDIOVASCULAR: Regular rate and rhythm without murmurs, gallops, or rubs. RESPIRATORY: Breath sounds equal bilaterally. No accessory muscle use. GASTROINTESTINAL: Abdomen soft, non-tender, nondistended. MUSCULOSKELETAL: No cyanosis, or edema. Right AKA BACK: Nontender without obvious deformity. No CVA tenderness. Medications and IVs Current Medications Medications (Trade) Dose Ordered Sig/Lib[place] Route Start Time Stop Time Status Last Admin (NS Flush) 2 ml UNSCH PRN IV FLUSH 07/15/17 14:30 07/17/17 16:46 (NS Flush) 2 ml BID IV FLUSH 07/15/17 21:00 07/18/17 20:51 (Tylenol) 650 mg Q4H PRN PO 07/15/17 14:30 (Zofran Inj) 4 mg Q6H PRN IVP 07/15/17 14:30 (Heparin Inj) 5,000 units Q12H SQ 07/15/17 18:00 07/19/17 06:03 (Narcan Inj) 0.4 mg UNSCH PRN IV 07/15/17 14:30 (Mary-Colace) 1 tab BID PO 07/15/17 21:00 07/18/17 20:49 (Milk Of Magnesia Liq) 30 ml Q12H PRN PO 07/15/17 14:30 (Senokot) 17.2 mg Q12H PRN PO 07/15/17 14:30 (Dulcolax Supp) 10 mg DAILY PRN RECTAL 07/15/17 14:30 (Lactulose Liq) 30 ml DAILY PRN PO 07/15/17 14:30 (Lipitor) 40 mg HS PO 07/15/17 21:00 07/18/17 20:49 (Phoslo) 667 mg TID PO 07/15/17 18:00 07/18/17 17:20 (Cardizem Cd) 240 mg DAILY PO 07/16/17 09:00 07/18/17 08:14 (Lasix) 40 mg DAILY PO 07/16/17 09:00 07/18/17 08:14 (Protonix) 40 mg DAILY PO 07/16/17 09:00 07/18/17 08:14 (Synthroid) 100 mcg DAILY@0600 PO 07/16/17 06:00 07/19/17 06:03 Sodium Chloride 1,000 ml @ 0 mls/hr Q0M PRN OTHER 07/15/17 15:03 (Heparin Inj) 8,000 units UNSCH PRN IVF 07/15/17 15:15 Sodium Chloride 1,000 ml @ 200 mls/hr Q5H PRN IV 07/15/17 15:03 Sodium Chloride 1,000 ml @ 0 mls/hr Q0M PRN OTHER 07/15/17 15:03 (Mannitol Inj) 12.5 gm UNSCH PRN IV 07/15/17 15:15 (Albumin 25% Inj) 25 gm UNSCH PRN IV 07/15/17 15:15 (NS Flush) 5 ml UNSCH PRN IV FLUSH 07/15/17 15:15 (Heparin Inj) UNSCH PRN .XX 07/15/17 15:15 (Gentamicin (Dialysis) Inj) 20 mg UNSCH PRN IV 07/15/17 15:15 (Zofran Inj) 4 mg UNSCH PRN IV 07/15/17 15:15 (Tylenol) 650 mg UNSCH PRN PO 07/15/17 15:15 (Benadryl) 25 mg UNSCH PRN PO 07/15/17 15:15 07/16/17 22:54 (Nitrostat Sl) 0.4 mg UNSCH PRN SL 07/15/17 15:15 (Catapres) 0.1 mg UNSCH PRN PO 07/15/17 15:15 (Gelfoam 12 Mm/7 Mm Top) 1 foam UNSCH PRN TOP 07/15/17 15:15 (Synthroid) 75 mcg DAILY@0600 PO 07/16/17 06:00 07/19/17 06:03 (Flagyl) 500 mg Q8HR PO 07/16/17 14:30 07/19/17 06:03 Cefepime HCl 2000 mg/Sodium Chloride 100 ml @ 200 mls/hr Q24H IV 07/16/17 16:00 07/18/17 17:20 Lactated Ringer's 1,000 ml @ 30 mls/hr Q24H PRN IV 07/16/17 21:15 07/19/17 21:14 Sodium Chloride 500 ml @ 30 mls/hr [id number] PRN IV 07/16/17 21:15 07/19/17 21:14 (Lopressor) 25 mg ADVANCE SCOUT PRN PO 07/16/17 21:15 07/19/17 21:14 (Betadine 5% Antisepsis Kit) 1 applic ADVANCE SCOUT PRN EACH NARE 07/16/17 21:15 07/19/17 21:14 (Chlorhexidine 2% Cloth) 3 pack ADVANCE SCOUT PRN TOPICAL 07/16/17 21:15 07/19/17 21:14 (NovoLIN R INJ) See Protocol Table ... ADVANCE SCOUT PRN SQ 07/16/17 21:15 07/19/17 21:14 (Percocet 5-325 Mg) 1 tab Q4H PRN PO 07/17/17 11:30 07/18/17 12:24 Vancomycin HCl 1000 mg/Sodium Chloride 250 ml @ 250 mls/hr WITH DIALYSIS IV 07/19/17 08:00 (Mag-Al Plus Susp Liq) 30 ml QID PRN PO 07/18/17 18:00 07/18/17 17:33 Assessment and Plan Problem List: (1) Anemia of renal disease ICD Codes: D63.1 - Anemia in chronic kidney disease (2) ESRD (end stage renal disease) on dialysis ICD Codes: N18.6 - End stage renal disease; Z99.2 - Dependence on renal dialysis Permanent Comment: Patient receives hemodialysis Tuesday and Tuesday as an outpatient. Medication should be adjusted for the patient's end-stage renal disease when indicated. Avoid gadolinium. Last Edited By: Kimber Hagan on Jul 16, 2017 14: 24 (3) Hypertension ICD Codes: I10 - Hypertension Status: Acute (4) UTI (urinary tract infection) ICD Codes: N39.0 - Urinary tract infection, site not specified (5) Diabetes ICD Codes: E11.9 - Diabetes Status: Acute (6) Sepsis ICD Codes: A41.9 - Sepsis, unspecified organism Status: Acute (7) PVD (peripheral vascular disease) ICD Codes: I73.9 - Peripheral vascular disease, unspecified Status: Acute Assessment and Plan 07/19/17 Left BKA: POD # 3. DREW wrap on and pain well controlled. Wound culture positive on vancomycin and flagyl ESRD: nephrology managing. Dialysis today UTI: MDR UTI on cefepime per ID HTN: continue current therapy will monitor. Diabetes: Blood sugars well controlled. On SS Hypothyroidism: Continue replacement will check TSH in AM Anemia of chronic disease: anemia of chronic disease on epogen. AFIB: Is currently on Heparin BID GI and DVT prophylaxis Labs in AM. I and the STRICKLER ATTENDANT have both examined this patient and reviewed this note and I agree with these findings and plan of care. Antoni Bird DO Problem Qualifiers (1) Sepsis: Qualified Codes: A41.9 - Sepsis, unspecified organism Cherei Loyd. STRICKLER ATTENDANT Jul 19, 2017 10:58
--- NOTE | 2017-07-19 11:34 | PD.VS.PN ---
Subjective POD #: 2 Procedure(s): open L BKA Subjective/Hospital Course Pt sitting in bed w/o complaints Pt alert in NAD Pain controlled Dressing to L LE intact C/D Objective Vitals/I&O Date Time Temp Pulse Resp B/P (MAP) Pulse Ox O2 Delivery O2 Flow Rate FiO2 07/19/17 08:00 97.0 106 18 159/89 (112) 97 07/19/17 04:00 96.6 89 18 117/80 (92) 96 07/18/17 20:00 96.8 84 18 139/76 (97) 96 07/18/17 19:59 81 07/18/17 16:00 98.3 108 16 142/70 (94) 96 07/18/17 13:27 20 07/18/17 12:00 98.3 108 17 135/91 (106) 97 07/19/17 07/19/17 07/19/17 07:00 15:00 23:00 Intake Total 240 ml Output Total 300 ml Balance -60 ml Exam: GENERAL: A&OX3 71/W/M. NAD, GCS15 SKIN: Warm and dry L BKA (open) w/o S/O Mild sanguineous drainage present w/o purulence Laboratory Date/Time Source Procedure Growth Status 07/15/17 12:50 Blood Peripheral Aerobic Blood Culture - Preliminary NO GROWTH IN 4 DAYS Resulted 07/15/17 12:50 Blood Peripheral Anaerobic Blood Culture - Preliminary NO GROWTH IN 4 DAYS Resulted 07/15/17 12:40 Wound Foot Gram Stain - Final Complete 07/15/17 12:40 Wound Culture - Final S. Aureus Mrsa Complete Assessment and Plan Plan Plan Completion L AKA scheduled for w/ Dr. Field Consent placed in the chart/ pt requesting to review then sign Procedure discussed w/ patient Questions answered Continue BID dressing changes Continue antibiotics Continue PT/OOB Tasneem BURR [facility] [phone] Tasneem Palma Jul 19, 2017 11:34
[2017-07-19] MEDS: GENTAMICIN SULFATE (DIALYSIS USE ONLY) 20 MG/2 ML VIAL IV PRN (12:30)
[2017-07-19] MEDS: HEPARIN SODIUM - IV 10,000 UNITS/10 ML VIAL PRN (12:30)
[2017-07-19] MEDS: VANCOMYCIN INJ 1,000 MG in SODIUM CHLOR 0.9% 250 ML INJ 250 ML IV SCH (12:51)
[2017-07-19] MEDS: FUROSEMIDE 40 MG TAB PO SCH (13:21)
[2017-07-19] MEDS: DILTIAZEM-CD 240 MG CAP ER PO SCH (13:21)
[2017-07-19] MEDS: PANTOPRAZOLE SOD 40 MG DELAYED RELEASE TAB PO SCH (13:21)
[2017-07-19 16:00] VITALS: BP 139/82; PULSE 98; RESP 18; TEMP 96.3; O2SAT 98
[2017-07-19] MEDS: CEFEPIME INJ 2,000 MG in SODIUM CHLORIDE 0.9% INJ 100 ML IV SCH (16:06)
[2017-07-19] MEDS: ATORVASTATIN 40 MG TAB PO SCH (19:53)
[2017-07-19 20:00] VITALS: BP 82/52; PULSE 67; RESP 16; TEMP 97; O2SAT 98
[2017-07-19 20:04] VITALS: PULSE 70
[2017-07-19 20:44] LABS: AUTOMATED NEUTROPHIL # 9.6 TH/MM3 (1.8-7.7); BASOPHIL % 0.2 % (0.0-2.0); EOSINOPHIL # 0.4 TH/MM3 (0-0.4); EOSINOPHIL % 3.6 % (0.0-4.0); HEMATOCRIT 30.4 % (39.0-51.0); HEMO FLAGS DIFF FINAL; LYMPH % 7.7 % (9.0-44.0); LYMPHOCYTE # 0.9 TH/MM3 (1.0-4.8); MEAN CELL VOLUME 90.4 FL (80.0-100.0); MEAN CORPUSCULAR HEMOGLOBIN 29.4 PG (27.0-34.0); MEAN CORPUSCULAR HGB CONC 32.5 % (32.0-36.0); MONO % 8.7 % (0.0-8.0); NEUT % 79.8 % (16.0-70.0); PLATELET COUNT 217 TH/MM3 (150-450); RED BLOOD COUNT 3.36 MIL/MM3 (4.50-5.90); RED CELL DISTRIBUTION WIDTH 14.3 % (11.6-17.2)
[2017-07-19 21:07] LABS: BICARBONATE 28.2 MEQ/L (21.0-32.0); POTASSIUM 3.5 MEQ/L (3.5-5.1)
[2017-07-20] VITALS: BP 125/69; PULSE 87; RESP 18; TEMP 98.1; O2SAT 96
[2017-07-20 04:00] VITALS: BP 125/69; PULSE 90; RESP 18; TEMP 96.7; O2SAT 98
[2017-07-20] MEDS: metroNIDAZOLE 500 MG TAB PO SCH ×3 (05:39→21:16)
[2017-07-20] MEDS: LEVOTHYROXINE SODIUM 100 MCG TAB PO SCH (05:39)
[2017-07-20] MEDS: HEPARIN SODIUM - SQ 10,000 UNITS/ML VIAL SQ SCH ×2 (05:39→16:34)
[2017-07-20] MEDS: LEVOTHYROXINE SODIUM 75 MCG TAB PO SCH (05:39)
[2017-07-20 07:06] LABS: HEMATOCRIT 30.5 % (39.0-51.0); MEAN CELL VOLUME 90.9 FL (80.0-100.0); MEAN CORPUSCULAR HEMOGLOBIN 29.7 PG (27.0-34.0); MEAN CORPUSCULAR HGB CONC 32.6 % (32.0-36.0); PLATELET COUNT 220 TH/MM3 (150-450); RED BLOOD COUNT 3.35 MIL/MM3 (4.50-5.90); RED CELL DISTRIBUTION WIDTH 14.4 % (11.6-17.2); REVIEW FLAG FINAL; WHITE BLOOD COUNT 9.6 TH/MM3 (4.0-11.0)
[2017-07-20 07:28] LABS: BICARBONATE 27.7 MEQ/L (21.0-32.0); POTASSIUM 3.7 MEQ/L (3.5-5.1)
[2017-07-20] MEDS: FUROSEMIDE 40 MG TAB PO SCH (07:50)
[2017-07-20] MEDS: CALCIUM ACETATE 667 MG CAP PO SCH ×2 (07:50→13:25)
[2017-07-20] MEDS: PANTOPRAZOLE SOD 40 MG DELAYED RELEASE TAB PO SCH (07:50)
[2017-07-20] MEDS: DILTIAZEM-CD 240 MG CAP ER PO SCH (07:50)
[2017-07-20] MEDS: SODIUM CHLORIDE 0.9% FLUSH 10 ML FLUSH IV FLUSH SCH ×2 (07:50→21:00)
[2017-07-20] MEDS: DOCUSATE SODIUM 50 MG/SENNA 8.6 MG TAB PO SCH ×2 (07:52→21:16)
[2017-07-20 08:00] VITALS: BP 134/70; PULSE 84; RESP 17; TEMP 97.2; O2SAT 98
--- NOTE | 2017-07-20 08:34 | HHI.PR ---
Subjective Remarks Patient alert and oriented. Denies any CP or SOB. Requesting a change in diet Objective Vital Signs Date Time Temp Pulse Resp B/P (MAP) Pulse Ox O2 Delivery O2 Flow Rate FiO2 07/20/17 04:00 96.7 90 18 125/69 (87) 98 07/20/17 00:00 98.1 87 18 125/69 (87) 96 07/19/17 20:04 70 07/19/17 20:00 97.0 67 16 82/52 (62) 98 07/19/17 16:00 96.3 98 18 139/82 (101) 98 I/O 07/19/17 07/19/17 07/19/17 07/20/17 07/20/17 07/20/17 07:00 15:00 23:00 07:00 15:00 23:00 Intake Total 240 ml 600 ml Output Total 300 ml 800 ml Balance -60 ml -200 ml Intake Oral 240 ml 600 ml Output Urine Total 300 ml 800 ml # Bowel Movements 0 4 Result Diagram: 07/20/1762407/20/17624 Procedures left BKA on 07/17 Objective Remarks GENERAL: alert SKIN: Warm and dry. Left below knee amputation with drew on. HEAD: Normocephalic. EYES: No scleral icterus. No injection or drainage. NECK: Supple, trachea midline. No JVD or lymphadenopathy. CARDIOVASCULAR: Regular rate and rhythm without murmurs, gallops, or rubs. RESPIRATORY: Breath sounds equal bilaterally. No accessory muscle use. GASTROINTESTINAL: Abdomen soft, non-tender, nondistended. MUSCULOSKELETAL: No cyanosis, or edema. Right AKA BACK: Nontender without obvious deformity. No CVA tenderness. Medications and IVs Current Medications Medications (Trade) Dose Ordered Sig/[place] Route Start Time Stop Time Status Last Admin (NS Flush) 2 ml UNSCH PRN IV FLUSH 07/15/17 14:30 07/17/17 16:46 (NS Flush) 2 ml BID IV FLUSH 07/15/17 21:00 07/20/17 07:50 (Tylenol) 650 mg Q4H PRN PO 07/15/17 14:30 (Zofran Inj) 4 mg Q6H PRN IVP 07/15/17 14:30 (Heparin Inj) 5,000 units Q12H SQ 07/15/17 18:00 07/20/17 05:39 (Narcan Inj) 0.4 mg UNSCH PRN IV 07/15/17 14:30 (Mary-Colace) 1 tab BID PO 07/15/17 21:00 07/18/17 20:49 (Milk Of Magnesia Liq) 30 ml Q12H PRN PO 07/15/17 14:30 (Senokot) 17.2 mg Q12H PRN PO 07/15/17 14:30 (Dulcolax Supp) 10 mg DAILY PRN RECTAL 07/15/17 14:30 (Lactulose Liq) 30 ml DAILY PRN PO 07/15/17 14:30 (Lipitor) 40 mg HS PO 07/15/17 21:00 07/19/17 19:53 (Phoslo) 667 mg TID PO 07/15/17 18:00 07/20/17 07:50 (Cardizem Cd) 240 mg DAILY PO 07/16/17 09:00 07/20/17 07:50 (Lasix) 40 mg DAILY PO 07/16/17 09:00 07/20/17 07:50 (Protonix) 40 mg DAILY PO 07/16/17 09:00 07/20/17 07:50 (Synthroid) 100 mcg DAILY@0600 PO 07/16/17 06:00 07/20/17 05:39 Sodium Chloride 1,000 ml @ 0 mls/hr Q0M PRN OTHER 07/15/17 15:03 (Heparin Inj) 8,000 units UNSCH PRN IVF 07/15/17 15:15 Sodium Chloride 1,000 ml @ 200 mls/hr Q5H PRN IV 07/15/17 15:03 Sodium Chloride 1,000 ml @ 0 mls/hr Q0M PRN OTHER 07/15/17 15:03 (Mannitol Inj) 12.5 gm UNSCH PRN IV 07/15/17 15:15 (Albumin 25% Inj) 25 gm UNSCH PRN IV 07/15/17 15:15 (NS Flush) 5 ml UNSCH PRN IV FLUSH 07/15/17 15:15 (Heparin Inj) UNSCH PRN .XX 07/15/17 15:15 07/19/17 12:30 (Gentamicin (Dialysis) Inj) 20 mg UNSCH PRN IV 07/15/17 15:15 07/19/17 12:30 (Zofran Inj) 4 mg UNSCH PRN IV 07/15/17 15:15 (Tylenol) 650 mg UNSCH PRN PO 07/15/17 15:15 (Benadryl) 25 mg UNSCH PRN PO 07/15/17 15:15 07/16/17 22:54 (Nitrostat Sl) 0.4 mg UNSCH PRN SL 07/15/17 15:15 (Catapres) 0.1 mg UNSCH PRN PO 07/15/17 15:15 (Gelfoam 12 Mm/7 Mm Top) 1 foam UNSCH PRN TOP 07/15/17 15:15 (Synthroid) 75 mcg DAILY@0600 PO 07/16/17 06:00 07/20/17 05:39 (Flagyl) 500 mg Q8HR PO 07/16/17 14:30 07/20/17 05:39 Cefepime HCl 2000 mg/Sodium Chloride 100 ml @ 200 mls/hr Q24H IV 07/16/17 16:00 07/19/17 16:06 (Percocet 5-325 Mg) 1 tab Q4H PRN PO 07/17/17 11:30 07/18/17 12:24 Vancomycin HCl 1000 mg/Sodium Chloride 250 ml @ 250 mls/hr WITH DIALYSIS IV 07/19/17 08:00 07/19/17 12:51 (Mag-Al Plus Susp Liq) 30 ml QID PRN PO 07/18/17 18:00 07/18/17 17:33 Assessment and Plan Problem List: (1) Anemia of renal disease ICD Codes: D63.1 - Anemia in chronic kidney disease (2) ESRD (end stage renal disease) on dialysis ICD Codes: N18.6 - End stage renal disease; Z99.2 - Dependence on renal dialysis Permanent Comment: Patient receives hemodialysis Tuesday and Tuesday as an outpatient. Medication should be adjusted for the patient's end-stage renal disease when indicated. Avoid gadolinium. Last Edited By: Kimber Hagan on Jul 16, 2017 14: 24 (3) Hypertension ICD Codes: I10 - Hypertension Status: Acute (4) UTI (urinary tract infection) ICD Codes: N39.0 - Urinary tract infection, site not specified (5) Diabetes ICD Codes: E11.9 - Diabetes Status: Acute (6) Sepsis ICD Codes: A41.9 - Sepsis, unspecified organism Status: Acute (7) PVD (peripheral vascular disease) ICD Codes: I73.9 - Peripheral vascular disease, unspecified Status: Acute Assessment and Plan 07/19/17 Left BKA: POD # 2. DREW wrap on and pain well controlled. Wound culture positive on vancomycin and flagyl ESRD: nephrology managing. dialysis today., UTI: MDR UTI on cefepime per ID HTN: continue current therapy will monitor. Diabetes: Blood sugars well controlled On SS Hypothyroidism: Continue replacement will check TSH in AM Anemia of chronic disease: anemia of chronic disease on epogen. AFIB: Is currently on Heparin BID GI and DVT prophylaxis Labs in AM. 07/20/17 Left BKA: POD # 3. DREW wrap on and pain well controlled. Wound culture positive on vancomycin and flagyl. Surgery planned for tomorrow LKA ESRD: nephrology managing. UTI: MDR UTI on cefepime per ID HTN: continue Diltazem B/P 125/69 PRN clonidine Diabetes: Blood sugars well controlled over night with range between 104-138 On SS. Patient is very unhappy about carb restriction. BS are very good will increase the carb to 2200 ADA per day. Hypothyroidism: Continue replacement will TSH WNL Anemia of chronic disease: anemia of chronic disease on epogen. HGB today at9.9 AFIB: Is currently on Heparin BID GI and DVT prophylaxis Labs in AM. I and the HOT KETTLE TENDER have both examined this patient and reviewed this note and I agree with these findings and plan of care. Antoni Bird DO Problem Qualifiers (1) Sepsis: Qualified Codes: A41.9 - Sepsis, unspecified organism Cherie Loyd HOT KETTLE TENDER Jul 20, 2017 08:34
--- NOTE | 2017-07-20 11:49 | PD.VS.PN ---
Subjective POD #: 3 Procedure(s): open L BKA Subjective/Hospital Course Pt sitting in bed w/o complaints Pt alert in NAD Pain controlled Dressing to L LE intact C/D Objective Vitals/I&O Date Time Temp Pulse Resp B/P (MAP) Pulse Ox O2 Delivery O2 Flow Rate FiO2 07/20/17 08:00 97.2 84 17 134/70 (91) 98 07/20/17 04:00 96.7 90 18 125/69 (87) 98 07/20/17 00:00 98.1 87 18 125/69 (87) 96 07/19/17 20:04 70 07/19/17 20:00 97.0 67 16 82/52 (62) 98 07/19/17 16:00 96.3 98 18 139/82 (101) 98 Laboratory Laboratory Tests Test 07/19/17 20:18 07/20/17 06:25 White Blood Count 12.0 9.6 Red Blood Count 3.36 3.35 Hemoglobin 9.9 9.9 Hematocrit 30.4 30.5 Mean Corpuscular Volume 90.4 90.9 Mean Corpuscular Hemoglobin 29.4 29.7 Mean Corpuscular Hemoglobin Concent 32.5 32.6 Red Cell Distribution Width 14.3 14.4 Platelet Count 217 220 Mean Platelet Volume 8.3 8.0 Neutrophils (%) (Auto) 79.8 Lymphocytes (%) (Auto) 7.7 Monocytes (%) (Auto) 8.7 Eosinophils (%) (Auto) 3.6 Basophils (%) (Auto) 0.2 Neutrophils # (Auto) 9.6 Lymphocytes # (Auto) 0.9 Monocytes # (Auto) 1.0 Eosinophils # (Auto) 0.4 Basophils # (Auto) 0.0 CBC Comment DIFF FINAL Differential Comment Blood Urea Nitrogen 23 28 Creatinine 2.96 3.52 Random Glucose 123 130 Calcium Level 7.9 8.0 Sodium Level 134 134 Potassium Level 3.5 3.7 Chloride Level 98 98 Carbon Dioxide Level 28.2 27.7 Anion Gap 8 8 Estimat Glomerular Filtration Rate 21 17 Thyroid Stimulating Hormone 3rd Gen 0.801 Albumin 2.1 Phosphorus Level 2.0 Date/Time Source Procedure Growth Status 07/15/17 12:50 Blood Peripheral Aerobic Blood Culture - Final NO GROWTH IN 5 DAYS Complete 07/15/17 12:50 Blood Peripheral Anaerobic Blood Culture - Final NO GROWTH IN 5 DAYS Complete 07/15/17 12:40 Wound Foot Gram Stain - Final Complete 07/15/17 12:40 Wound Culture - Final S. Aureus Mrsa Complete Assessment and Plan Plan Plan Completion Doretha RODRIGUEZ scheduled for w/ Dr. Field Consent placed in the chart/ signed consent Pt NPO after midnight Continue BID dressing changes Continue antibiotics Continue PT/OOB Tasneem BURR [facility]/[place] [phone] Tasneem Palma Jul 20, 2017 11:49
[2017-07-20 12:00] VITALS: BP 133/71; PULSE 95; RESP 18; TEMP 97; O2SAT 98
--- NOTE | 2017-07-20 12:59 | HHI.IDPN ---
Subjective Subjective Remarks Patient is a 71-year-old male, with known history of peripheral vascular disease , admitted to the hospital for further evaluation of his left foot. Patient has been in a rehabilitation facility, and being followed by a cash applications specialist. He has wounds on the medial aspect of his left foot as well as the 4th and fifth toes. According to the patient over the last 2 weeks he has noted some odor coming out of the left foot. He has not really seen what his foot looks like post day always have a dressing around the foot. He has not had any fever or chills or sweats. His complaining of pain on the left foot. Patient has not been ambulating in the rehabilitation facility. He had undergone a right [id number] amputation back in February 2017 for gangrene. During that admission he was septic and had positive blood cultures. The stump healed without any problem. Since admission he has not had any fever. His WBC is elevated. Patient has end-stage renal disease, and gets hemodialysis every Tuesday and Tuesday. He received 1 dose of Vanco and Zosyn yesterday , and has not been on any antibiotics since. Vascular surgery has seen the patient and surgical plans have been noted. Infectious disease consultation has been requested to evaluate the patient. 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 Vital Signs Date Time Temp Pulse Resp B/P (MAP) Pulse Ox O2 Delivery O2 Flow Rate FiO2 07/20/17 08:00 97.2 84 17 134/70 (91) 98 07/20/17 04:00 96.7 90 18 125/69 (87) 98 07/20/17 00:00 98.1 87 18 125/69 (87) 96 07/19/17 20:04 70 07/19/17 20:00 97.0 67 16 82/52 (62) 98 07/19/17 16:00 96.3 98 18 139/82 (101) 98 . Laboratory Tests Test 07/19/17 20:18 07/20/17 06:25 White Blood Count 12.0 TH/MM3 9.6 TH/MM3 Red Blood Count 3.36 MIL/MM3 3.35 MIL/MM3 Hemoglobin 9.9 GM/DL 9.9 GM/DL Hematocrit 30.4 % 30.5 % Mean Corpuscular Volume 90.4 FL 90.9 FL Mean Corpuscular Hemoglobin 29.4 PG 29.7 PG Mean Corpuscular Hemoglobin Concent 32.5 % 32.6 % Red Cell Distribution Width 14.3 % 14.4 % Platelet Count 217 TH/MM3 220 TH/MM3 Mean Platelet Volume 8.3 FL 8.0 FL Neutrophils (%) (Auto) 79.8 % Lymphocytes (%) (Auto) 7.7 % Monocytes (%) (Auto) 8.7 % Eosinophils (%) (Auto) 3.6 % Basophils (%) (Auto) 0.2 % Neutrophils # (Auto) 9.6 TH/MM3 Lymphocytes # (Auto) 0.9 TH/MM3 Monocytes # (Auto) 1.0 TH/MM3 Eosinophils # (Auto) 0.4 TH/MM3 Basophils # (Auto) 0.0 TH/MM3 CBC Comment DIFF FINAL Differential Comment Laboratory Tests Test 07/19/17 20:18 07/20/17 06:25 Blood Urea Nitrogen 23 MG/DL 28 MG/DL Creatinine 2.96 MG/DL 3.52 MG/DL Random Glucose 123 MG/DL 130 MG/DL Calcium Level 7.9 MG/DL 8.0 MG/DL Sodium Level 134 MEQ/L 134 MEQ/L Potassium Level 3.5 MEQ/L 3.7 MEQ/L Chloride Level 98 MEQ/L 98 MEQ/L Carbon Dioxide Level 28.2 MEQ/L 27.7 MEQ/L Anion Gap 8 MEQ/L 8 MEQ/L Estimat Glomerular Filtration Rate 21 ML/MIN 17 ML/MIN Thyroid Stimulating Hormone 3rd Gen 0.801 uIU/ML Albumin 2.1 GM/DL Phosphorus Level 2.0 MG/DL Imaging Last Impressions Chest X-Ray 07/16/17 0000 Signed Impressions: Service Date/Time: Sunday, July 16, 2017 19:20 - CONCLUSION: No acute disease. There is no evidence of pneumonia. Filiberto Viramontes MD Tibia/Fibula X-Ray 07/15/17 0000 Signed Impressions: Service Date/Time: Saturday, July 15, 2017 13:32 - CONCLUSION: Extensive vascular calcifications, negative for fracture. Torres Hurtado MD FACR Foot X-Ray 07/15/17 0000 Signed Impressions: Service Date/Time: Saturday, July 15, 2017 13:40 - CONCLUSION: Extensive vascular calcifications with disuse osteopenia. Torres Hurtado MD FACR Physical Exam GENERAL: awake and alert, not in respiratory distress. SKIN: Warm and dry. No generalized rash. HEAD: Atraumatic. Normocephalic. No temporal wasting, or tenderness. EYES: Spalding conjunctiva. No petechia or hemorrhage. Pupils equal, round and reactive to light. No scleral icterus. No injection or drainage. EARS, NOSE AND THROAT: Nose without bleeding or purulent nasal discharge. Mucous membranes pink and moist. No oral lesions noted. NECK: Trachea midline. Supple and not tender, no meningeal signs CARDIOVASCULAR: Regular rate and rhythm. No murmurs, rubs or gallops heard. Permacath R chest, no evidence of infection RESPIRATORY: Clear to auscultation. Breath sounds equal bilaterally. No rales , wheezing or rhonchi ABDOMEN: Soft, non-tender, nondistended. Bowel sounds present and normoactive. No guarding. No rebound. No organomegaly. EXTREMITIES: S/P RAKA - well healed stump. LLE - has dressing to his BKA, has breakthrough bleeding in dressing NEUROLOGICAL: grossly non-focal. PSYCHIATRIC: Normal affect, calm and cooperative. LINE: No evidence of infection Assessment & Plan Remarks IMPRESSION Multiple ischemic and infected wounds L foot, with gangrenous changes PVD Previous RAKA for gangrene ESRD, on HD RECOMMENDATION IV Zosyn Continue IV vanco - will dose with HD Plans for 2 stage amputation per vascular surgery - OR again Monitor progress Will not need long course of IV once final AKA done Connie Cerna MD Jul 20, 2017 12:59
--- NOTE | 2017-07-20 15:59 | HHI.NPPN ---
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 Patient also has a history of hypertension, atrial fibrillation, peripheral vascular disease, CHF status post right AKA a few months ago now presenting with gangrene of the left foot and is scheduled unfortunately for another amputation. Patient was also being treated prior to admission for urinary tract infection with cefepime and in the dialysis unit secondary to Morganella morganii which was sensitive to cefepime but resistant to several antibiotics including Cipro, levofloxacin, piperacillin/azobactam. Patient was seen during dialysis today. No verbal complaints. Interval History Patient had no verbal complaints. Objective Data Data Vital Signs Date Time Temp Pulse Resp B/P (MAP) Pulse Ox O2 Delivery O2 Flow Rate FiO2 07/20/17 12:00 97.0 95 18 133/71 (91) 98 07/20/17 08:00 97.2 84 17 134/70 (91) 98 07/20/17 04:00 96.7 90 18 125/69 (87) 98 07/20/17 00:00 98.1 87 18 125/69 (87) 96 07/19/17 20:04 70 07/19/17 20:00 97.0 67 16 82/52 (62) 98 07/19/17 16:00 96.3 98 18 139/82 (101) 98 -: 07/20/17 0625 07/20/17 0625 Physical Exam General Appearance: Well Developed, No Acute Distress, Comfortable Eyes Eye Exam: Pupils Equal, Pupils Reactive Pulmonary Resp Exam: Clear Bilaterally, Breath Sounds Equal, No Distress Cardiology CV Exam: Regular, Normal Sinus Rhythm Gastrointestinal/Abdomen GI Exam: Soft, Non-Tender Integumentary Skin Exam: Clear, Warm, Normal Turgor Extremeties Extremities Exam: No Edema Neurologic Neuro Exam: Alert, Awake, Speech Clear Assessment/Plan Discussed Condition With: Patient, Spouse Problem List: (1) ESRD (end stage renal disease) on dialysis ICD Codes: N18.6 - End stage renal disease; Z99.2 - Dependence on renal dialysis Plan: Next hemodialysis scheduled for tomorrow. Continue TTS schedule. Also is to have completion of his amputation tomorrow. Permanent Comment: Patient receives hemodialysis Tuesday and Tuesday as an outpatient. Medication should be adjusted for the patient's end-stage renal disease when indicated. Avoid gadolinium. Last Edited By: Kimber Hagan on Jul 16, 2017 14: 24 (2) UTI (urinary tract infection) ICD Codes: N39.0 - Urinary tract infection, site not specified Plan: Patient was receiving cefepime and in the dialysis unit for UTI related to Morganella morganii. Multiple drug resistances but sensitive to cefepime. Culture report forwarded to infectious disease and patient is on cefepime. (3) Anemia of renal disease ICD Codes: D63.1 - Anemia in chronic kidney disease Plan: Epogen for for anemia renal disease as indicated. (4) Hypertension ICD Codes: I10 - Hypertension Status: Acute (5) Diabetes ICD Codes: E11.9 - Diabetes Status: Acute (6) Hypophosphatemia ICD Codes: E83.39 - Other disorders of phosphorus metabolism Plan: Patient has a low phosphate level despite having end-stage renal disease most likely related to diminished nutritional intake in association with phosphate binders. We'll discontinue PhosLo at this time Jeremiah Hagan MD Jul 20, 2017 15:59
[2017-07-20 16:00] VITALS: BP 134/70; PULSE 92; RESP 16; TEMP 97.8; O2SAT 96
[2017-07-20] MEDS: CEFEPIME INJ 2,000 MG in SODIUM CHLORIDE 0.9% INJ 100 ML IV SCH (16:34)
[2017-07-20 20:00] VITALS: BP 122/75; PULSE 86; PULSE 97; RESP 18; TEMP 98.1; O2SAT 99
[2017-07-20] MEDS: ATORVASTATIN 40 MG TAB PO SCH (21:16)
[2017-07-21] VITALS: BP 154/84; PULSE 83; RESP 18; TEMP 95.9; O2SAT 93
[2017-07-21] MEDS ORDERED: LACTATED RINGER'S 1000 ML IV PRN (01:15)
[2017-07-21] MEDS ORDERED: CHLORHEXIDINE GLUCONATE 2 % 1 PACK (2 CLOTHS) TOPICAL PRN (01:15)
[2017-07-21 04:00] VITALS: BP 161/101; PULSE 103; RESP 20; TEMP 97.8; O2SAT 98
[2017-07-21] MEDS: LEVOTHYROXINE SODIUM 75 MCG TAB PO SCH (05:38)
[2017-07-21] MEDS: LEVOTHYROXINE SODIUM 100 MCG TAB PO SCH (05:38)
[2017-07-21] MEDS: metroNIDAZOLE 500 MG TAB PO SCH ×3 (05:38→21:45)
[2017-07-21] MEDS: HEPARIN SODIUM - SQ 10,000 UNITS/ML VIAL SQ SCH ×2 (05:41→14:14)
[2017-07-21 07:10] LABS: HEMATOCRIT 30.5 % (39.0-51.0); MEAN CELL VOLUME 91.2 FL (80.0-100.0); MEAN CORPUSCULAR HEMOGLOBIN 29.7 PG (27.0-34.0); MEAN CORPUSCULAR HGB CONC 32.6 % (32.0-36.0); PLATELET COUNT 221 TH/MM3 (150-450); RED BLOOD COUNT 3.35 MIL/MM3 (4.50-5.90); RED CELL DISTRIBUTION WIDTH 14.4 % (11.6-17.2); REVIEW FLAG FINAL; WHITE BLOOD COUNT 9.4 TH/MM3 (4.0-11.0)
[2017-07-21 07:16] LABS: INTERNATIONAL NORMALIZED RATIO 1.2 RATIO; PROTHROMBIN TIME - PATIENT 13.5 SEC (9.8-11.6)
[2017-07-21 07:33] LABS: BICARBONATE 27.3 MEQ/L (21.0-32.0); POTASSIUM 3.6 MEQ/L (3.5-5.1)
[2017-07-21 08:00] VITALS: BP 148/63; PULSE 78; RESP 18; TEMP 96.1; O2SAT 94
[2017-07-21] MEDS: SODIUM CHLORIDE 0.9% FLUSH 10 ML FLUSH IV FLUSH SCH ×2 (09:00→17:10)
--- NOTE | 2017-07-21 11:14 | HHI.PR ---
Subjective Remarks Patient alert and oriented. Denies any CP or SOB. Surgery plan for today for AKA Objective Vital Signs Date Time Temp Pulse Resp B/P (MAP) Pulse Ox O2 Delivery O2 Flow Rate FiO2 07/21/17 08:00 96.1 78 18 148/63 (91) 94 07/21/17 04:00 97.8 103 20 161/101 (121) 98 07/21/17 00:00 95.9 83 18 154/84 (107) 93 07/20/17 20:00 98.1 97 18 122/75 (91) 99 07/20/17 20:00 86 07/20/17 16:00 97.8 92 16 134/70 (91) 96 07/20/17 12:00 97.0 95 18 133/71 (91) 98 I/O 07/20/17 07/20/17 07/20/17 07/21/17 07/21/17 07/21/17 07:00 15:00 23:00 07:00 15:00 23:00 Intake Total 600 ml Output Total 375 ml 600 ml Balance 225 ml -600 ml Intake Oral 600 ml Output Urine Total 375 ml 600 ml # Bowel Movements 1 Result Diagram: 07/21/1751607/21/17 05 Procedures left BKA on 07/17 Objective Remarks GENERAL: alert SKIN: Warm and dry. Left below knee amputation with drew on. HEAD: Normocephalic. EYES: No scleral icterus. No injection or drainage. NECK: Supple, trachea midline. No JVD or lymphadenopathy. CARDIOVASCULAR: Regular rate and rhythm without murmurs, gallops, or rubs. RESPIRATORY: Breath sounds equal bilaterally. No accessory muscle use. GASTROINTESTINAL: Abdomen soft, non-tender, nondistended. MUSCULOSKELETAL: No cyanosis, or edema. Right AKA BACK: Nontender without obvious deformity. No CVA tenderness. Medications and IVs Current Medications Medications (Trade) Dose Ordered Sig/Libia Route Start Time Stop Time Status Last Admin (NS Flush) 2 ml UNSCH PRN IV FLUSH 07/15/17 14:30 07/17/17 16:46 (NS Flush) 2 ml BID IV FLUSH 07/15/17 21:00 07/20/17 21:00 (Tylenol) 650 mg Q4H PRN PO 07/15/17 14:30 (Zofran Inj) 4 mg Q6H PRN IVP 07/15/17 14:30 (Heparin Inj) 5,000 units Q12H SQ 07/15/17 18:00 07/20/17 16:34 (Narcan Inj) 0.4 mg UNSCH PRN IV 07/15/17 14:30 (Mary-Colace) 1 tab BID PO 07/15/17 21:00 07/20/17 21:16 (Milk Of Magnesia Liq) 30 ml Q12H PRN PO 07/15/17 14:30 (Senokot) 17.2 mg Q12H PRN PO 07/15/17 14:30 (Dulcolax Supp) 10 mg DAILY PRN RECTAL 07/15/17 14:30 (Lactulose Liq) 30 ml DAILY PRN PO 07/15/17 14:30 (Lipitor) 40 mg HS PO 07/15/17 21:00 07/20/17 21:16 (Cardizem Cd) 240 mg DAILY PO 07/16/17 09:00 07/20/17 07:50 (Lasix) 40 mg DAILY PO 07/16/17 09:00 07/20/17 07:50 (Protonix) 40 mg DAILY PO 07/16/17 09:00 07/20/17 07:50 (Synthroid) 100 mcg DAILY@0600 PO 07/16/17 06:00 07/21/17 05:38 Sodium Chloride 1,000 ml @ 0 mls/hr Q0M PRN OTHER 07/15/17 15:03 (Heparin Inj) 8,000 units UNSCH PRN IVF 07/15/17 15:15 Sodium Chloride 1,000 ml @ 200 mls/hr Q5H PRN IV 07/15/17 15:03 Sodium Chloride 1,000 ml @ 0 mls/hr Q0M PRN OTHER 07/15/17 15:03 (Mannitol Inj) 12.5 gm UNSCH PRN IV 07/15/17 15:15 (Albumin 25% Inj) 25 gm UNSCH PRN IV 07/15/17 15:15 (NS Flush) 5 ml UNSCH PRN IV FLUSH 07/15/17 15:15 (Heparin Inj) UNSCH PRN .XX 07/15/17 15:15 07/19/17 12:30 (Gentamicin (Dialysis) Inj) 20 mg UNSCH PRN IV 07/15/17 15:15 07/19/17 12:30 (Zofran Inj) 4 mg UNSCH PRN IV 07/15/17 15:15 (Tylenol) 650 mg UNSCH PRN PO 07/15/17 15:15 (Benadryl) 25 mg UNSCH PRN PO 07/15/17 15:15 07/16/17 22:54 (Nitrostat Sl) 0.4 mg UNSCH PRN SL 07/15/17 15:15 (Catapres) 0.1 mg UNSCH PRN PO 07/15/17 15:15 (Gelfoam 12 Mm/7 Mm Top) 1 foam UNSCH PRN TOP 07/15/17 15:15 (Synthroid) 75 mcg DAILY@0600 PO 07/16/17 06:00 07/21/17 05:38 (Flagyl) 500 mg Q8HR PO 07/16/17 14:30 07/21/17 05:38 Cefepime HCl 2000 mg/Sodium Chloride 100 ml @ 200 mls/hr Q24H IV 07/16/17 16:00 07/20/17 16:34 (Percocet 5-325 Mg) 1 tab Q4H PRN PO 07/17/17 11:30 07/18/17 12:24 Vancomycin HCl 1000 mg/Sodium Chloride 250 ml @ 250 mls/hr WITH DIALYSIS IV 07/19/17 08:00 07/19/17 12:51 (Mag-Al Plus Susp Liq) 30 ml QID PRN PO 07/18/17 18:00 07/18/17 17:33 Lactated Ringer's 1,000 ml @ 30 mls/hr Q24H PRN IV 07/21/17 01:15 07/24/17 01:14 (Chlorhexidine 2% Cloth) 3 pack CEMENT MASON PRN TOPICAL 07/21/17 01:15 07/24/17 01:14 Assessment and Plan Problem List: (1) Anemia of renal disease ICD Codes: D63.1 - Anemia in chronic kidney disease (2) ESRD (end stage renal disease) on dialysis ICD Codes: N18.6 - End stage renal disease; Z99.2 - Dependence on renal dialysis Permanent Comment: Patient receives hemodialysis Tuesday and Tuesday as an outpatient. Medication should be adjusted for the patient's end-stage renal disease when indicated. Avoid gadolinium. Last Edited By: Kibmer Hagan on Jul 16, 2017 14: 24 (3) Hypertension ICD Codes: I10 - Hypertension Status: Acute (4) UTI (urinary tract infection) ICD Codes: N39.0 - Urinary tract infection, site not specified (5) Diabetes ICD Codes: E11.9 - Diabetes Status: Acute (6) Sepsis ICD Codes: A41.9 - Sepsis, unspecified organism Status: Acute (7) PVD (peripheral vascular disease) ICD Codes: I73.9 - Peripheral vascular disease, unspecified Status: Acute Assessment and Plan 07/19/17 Left BKA: POD # 2. DREW wrap on and pain well controlled. Wound culture positive on vancomycin and flagyl ESRD: nephrology managing. dialysis today., UTI: MDR UTI on cefepime per ID HTN: continue current therapy will monitor. Diabetes: Blood sugars well controlled On SS Hypothyroidism: Continue replacement will check TSH in AM Anemia of chronic disease: anemia of chronic disease on epogen. AFIB: Is currently on Heparin BID GI and DVT prophylaxis Labs in AM. 07/20/17 Left BKA: POD # 3. DREW wrap on and pain well controlled. Wound culture positive on vancomycin and flagyl. Surgery planned for tomorrow LKA ESRD: nephrology managing. UTI: MDR UTI on cefepime per ID HTN: continue Diltazem B/P 125/69 PRN clonidine Diabetes: Blood sugars well controlled over night with range between 104-138 On SS. Patient is very unhappy about carb restriction. BS are very good will increase the carb to 2200 ADA per day. Hypothyroidism: Continue replacement will TSH WNL Anemia of chronic disease: anemia of chronic disease on epogen. HGB today at9.9 AFIB: Is currently on Heparin BID GI and DVT prophylaxis Labs in AM. 07/21/17 Left BKA: POD # 4. DREW wrap on and pain well controlled. Wound culture positive on vancomycin and flagyl. Surgery planned for today left AKA ESRD: nephrology managing. UTI: MDR UTI on cefepime per ID HTN: continue Diltazem B/P 125/69 PRN clonidine Diabetes: Blood sugars well controlled over night. On SS. Patient is very unhappy about carb restriction. BS are very good will increase the carb to 2200 ADA per day. Hypothyroidism: Continue replacement will TSH WNL Anemia of chronic disease: anemia of chronic disease on epogen. HGB stable. AFIB: Is currently on Heparin BID Labs in AM I and the FISH BIN TENDER have both examined this patient and reviewed this note and I agree with these findings and plan of care. Antoni Bird DO Problem Qualifiers (1) Sepsis: Qualified Codes: A41.9 - Sepsis, unspecified organism Cherie Loyd [facility] Jul 21, 2017 11:14
[2017-07-21] MEDS ORDERED: MIDAZOLAM HCL 2 MG/2 ML VIAL IV ONE (12:00)
[2017-07-21] MEDS ORDERED: PHENYLEPH/NS 1000 MCG/10 ML SYR IV ONE (12:00)
[2017-07-21] MEDS ORDERED: ONDANSETRON HCL 4 MG/2 ML VIAL IV PUSH ONE (12:00)
[2017-07-21] MEDS ORDERED: PROPOFOL 200 MG/20 ML AMP IV ONE (12:00)
[2017-07-21] MEDS: GENTAMICIN SULFATE (DIALYSIS USE ONLY) 20 MG/2 ML VIAL IV PRN (12:45)
[2017-07-21] MEDS: DILTIAZEM-CD 240 MG CAP ER PO SCH (13:25)
[2017-07-21] MEDS: PANTOPRAZOLE SOD 40 MG DELAYED RELEASE TAB PO SCH (13:25)
[2017-07-21] MEDS: FUROSEMIDE 40 MG TAB PO SCH (13:25)
[2017-07-21] MEDS: DOCUSATE SODIUM 50 MG/SENNA 8.6 MG TAB PO SCH ×2 (13:25→21:00)
[2017-07-21] MEDS: CEFEPIME INJ 2,000 MG in SODIUM CHLORIDE 0.9% INJ 100 ML IV SCH (13:31)
[2017-07-21] MEDS ORDERED: VANCOMYCIN HCL 1000 MG VIAL ONE (15:16)
[2017-07-21] MEDS ORDERED: SODIUM CHLOR 0.9% 250 ML INJ 250 ML IV ONE (15:50)
--- NOTE | 2017-07-21 15:55 | HHI.PR ---
Immediate Post Op Note Procedure Date: Jul 21, 2017 Pre Op Diagnosis: open L BKA Post Op Diagnosis: open L BKA Surgeon: Malick Field [employer] Substitute Teacher(s): Zen Clement Procedure: L AKA Findings: no undrained infection Complications: none Specimen(s) removed: LEFT leg Estimated blood loss: 100mL Anesthesia: General Drains: None Fluids: 300mL IVF Patient to: PACU Patient Condition: Good Date/Time of Procedure: SEE SURGICAL CARE RECORD Malick Field MD Jul 21, 2017 15:55
[2017-07-21] MEDS ORDERED: DO NOT ADM ANY ANTICOAGULANT DRUGS PRN (16:14)
[2017-07-21] MEDS ORDERED: *morphine SULFATE 8 MG/ML PERIprocedure ONLY ONE ×2 (16:23→16:42)
[2017-07-21] MEDS ORDERED: *HYDROmorphone PF 1 MG VIAL PERIprocedural Use ONLY ONE (17:02)
[2017-07-21 19:00] VITALS: PULSE 80
--- NOTE | 2017-07-21 19:15 | MP ---
cc: MALICK FIELD MD DATE OF SURGERY 07/21/17 PREOPERATIVE DIAGNOSIS Left below-knee amputation. POSTOPERATIVE DIAGNOSIS Left below-knee amputation. PROCEDURE Left above-knee amputation. MEDICATIONS Malick Field MD [employer] APPRENTICE PHOTOENGRAVING SURGEON Zen Clement ANESTHESIA General. INDICATIONS Mr. Zendejas is a 71-year-old gentleman with diabetes, peripheral arterial occlusive disease and he is taken to the operating room for completion amputation. DESCRIPTION OF PROCEDURE Informed consent obtained. The patient was taken to the operating room and placed supine on the operating table. An appropriate time-out was taken to ensure the patient's identity, op plan, planned procedure. He was administered a gram of vancomycin. This will be continued postoperative with ongoing therapy. Everyone in the room agreed to time-out, we proceeded. His left leg was prepped and draped. Incision made above the knee, carried down to the subcutaneous tissue with electrocautery. Muscles divided with electrocautery. The bone was divided with oscillating saw. The posterior muscle was divided and the vessels were clamped. The vessel loops divided with hemostat. With scissors the specimen was passed off the table and the vessels were controlled with 4-0 Prolene and 2-0 silk with the artery and vein respectively. The wound was irrigated and closed with 2-0 Polysorb and skin sayra. Sponge, needle counts were correct at the end of the case. I was present and scrubbed for the entire procedure. Malick Field MD RJF/EO /3:57 PM /7:02 PM
[2017-07-21 20:00] VITALS: BP 133/80; PULSE 85; RESP 18; TEMP 96.5; O2SAT 98
[2017-07-21] MEDS: ATORVASTATIN 40 MG TAB PO SCH (21:45)
[2017-07-21] MEDS: HYDROmorphone HCL 2 MG TAB PO PRN (21:56)
[2017-07-22] VITALS (7 sets, daily range): BP systolic 107–162; BP diastolic 60–89; PULSE 84–110; RESP 16–18; TEMP 96.1–98.3; O2SAT 96–99
[2017-07-22] MEDS: HYDROmorphone HCL 2 MG TAB PO PRN ×4 (00:50→14:10)
[2017-07-22] MEDS: LEVOTHYROXINE SODIUM 75 MCG TAB PO SCH (05:47)
[2017-07-22] MEDS: metroNIDAZOLE 500 MG TAB PO SCH ×3 (05:47→20:33)
[2017-07-22] MEDS: LEVOTHYROXINE SODIUM 100 MCG TAB PO SCH (05:47)
[2017-07-22] MEDS: HEPARIN SODIUM - SQ 10,000 UNITS/ML VIAL SQ SCH ×2 (05:54→16:23)
[2017-07-22 07:32] LABS: HEMATOCRIT 30.6 % (39.0-51.0); MEAN CELL VOLUME 92.2 FL (80.0-100.0); MEAN CORPUSCULAR HEMOGLOBIN 29.7 PG (27.0-34.0); MEAN CORPUSCULAR HGB CONC 32.2 % (32.0-36.0); PLATELET COUNT 188 TH/MM3 (150-450); RED BLOOD COUNT 3.32 MIL/MM3 (4.50-5.90); RED CELL DISTRIBUTION WIDTH 14.5 % (11.6-17.2); REVIEW FLAG FINAL; WHITE BLOOD COUNT 17.2 TH/MM3 (4.0-11.0)
--- NOTE | 2017-07-22 07:41 | HHI.PR ---
Subjective Remarks Denies any CP or SOB. S/P Left AKA drew wrap on. Objective Vital Signs Date Time Temp Pulse Resp B/P (MAP) Pulse Ox O2 Delivery O2 Flow Rate FiO2 07/22/17 04:00 96.8 94 18 151/78 (102) 99 07/22/17 00:00 96.1 89 18 162/89 (113) 98 07/21/17 23:00 18 07/21/17 20:00 96.5 85 18 133/80 (97) 98 07/21/17 19:00 80 07/21/17 17:20 14 07/21/17 17:15 97.7 95 14 147/83 (104) 98 Nasal Cannula 2 07/21/17 17:00 92 15 144/78 (100) 99 Nasal Cannula 2 07/21/17 16:45 91 15 148/77 (100) 99 Nasal Cannula 2 07/21/17 16:30 85 20 155/80 (105) 98 Nasal Cannula 2 07/21/17 16:17 97.8 92 18 176/87 (116) 99 Simple Mask 5 07/21/17 08:00 96.1 78 18 148/63 (91) 94 I/O 07/21/17 07/21/17 07/21/17 07/22/17 07/22/17 07/22/17 07:00 15:00 23:00 07:00 15:00 23:00 Intake Total 550 ml Output Total 600 ml 1200 ml 1100 ml 600 ml Balance -600 ml -1200 ml -550 ml -600 ml IV Total 250 ml Other 300 ml Output Urine Total 600 ml 600 ml Hemodialysis 1200 ml Estimated Blood Loss 100 ml Other 1000 ml # Bowel Movements 1 Result Diagram: 07/22/17 0608 07/21/17 0517 Procedures left BKA on 07/17 Objective Remarks GENERAL: alert SKIN: Warm and dry. Left below knee amputation with drew on. HEAD: Normocephalic. EYES: No scleral icterus. No injection or drainage. NECK: Supple, trachea midline. No JVD or lymphadenopathy. CARDIOVASCULAR: Regular rate and rhythm without murmurs, gallops, or rubs. RESPIRATORY: Breath sounds equal bilaterally. No accessory muscle use. GASTROINTESTINAL: Abdomen soft, non-tender, nondistended. MUSCULOSKELETAL: No cyanosis, or edema. Right AKA BACK: Nontender without obvious deformity. No CVA tenderness. Medications and IVs Current Medications Medications (Trade) Dose Ordered Sig/Libia Route Start Time Stop Time Status Last Admin (NS Flush) 2 ml UNSCH PRN IV FLUSH 07/15/17 14:30 07/17/17 16:46 (NS Flush) 2 ml BID IV FLUSH 07/15/17 21:00 07/21/17 17:10 (Tylenol) 650 mg Q4H PRN PO 07/15/17 14:30 (Zofran Inj) 4 mg Q6H PRN IVP 07/15/17 14:30 (Heparin Inj) 5,000 units Q12H SQ 07/15/17 18:00 07/20/17 16:34 (Narcan Inj) 0.4 mg UNSCH PRN IV 07/15/17 14:30 (Mary-Colace) 1 tab BID PO 07/15/17 21:00 07/21/17 13:25 (Milk Of Magnesia Liq) 30 ml Q12H PRN PO 07/15/17 14:30 (Senokot) 17.2 mg Q12H PRN PO 07/15/17 14:30 (Dulcolax Supp) 10 mg DAILY PRN RECTAL 07/15/17 14:30 (Lactulose Liq) 30 ml DAILY PRN PO 07/15/17 14:30 (Lipitor) 40 mg HS PO 07/15/17 21:00 07/21/17 21:45 (Cardizem Cd) 240 mg DAILY PO 07/16/17 09:00 07/21/17 13:25 (Lasix) 40 mg DAILY PO 07/16/17 09:00 07/21/17 13:25 (Protonix) 40 mg DAILY PO 07/16/17 09:00 07/21/17 13:25 (Synthroid) 100 mcg DAILY@0600 PO 07/16/17 06:00 07/22/17 05:47 Sodium Chloride 1,000 ml @ 0 mls/hr Q0M PRN OTHER 07/15/17 15:03 (Heparin Inj) 8,000 units UNSCH PRN IVF 07/15/17 15:15 Sodium Chloride 1,000 ml @ 200 mls/hr Q5H PRN IV 07/15/17 15:03 Sodium Chloride 1,000 ml @ 0 mls/hr Q0M PRN OTHER 07/15/17 15:03 (Mannitol Inj) 12.5 gm UNSCH PRN IV 07/15/17 15:15 (Albumin 25% Inj) 25 gm UNSCH PRN IV 07/15/17 15:15 (NS Flush) 5 ml UNSCH PRN IV FLUSH 07/15/17 15:15 (Heparin Inj) UNSCH PRN .XX 07/15/17 15:15 07/19/17 12:30 (Gentamicin (Dialysis) Inj) 20 mg UNSCH PRN IV 07/15/17 15:15 07/21/17 12:45 (Zofran Inj) 4 mg UNSCH PRN IV 07/15/17 15:15 (Tylenol) 650 mg UNSCH PRN PO 07/15/17 15:15 (Benadryl) 25 mg UNSCH PRN PO 07/15/17 15:15 07/16/17 22:54 (Nitrostat Sl) 0.4 mg UNSCH PRN SL 07/15/17 15:15 (Catapres) 0.1 mg UNSCH PRN PO 07/15/17 15:15 (Gelfoam 12 Mm/7 Mm Top) 1 foam UNSCH PRN TOP 07/15/17 15:15 (Synthroid) 75 mcg DAILY@0600 PO 07/16/17 06:00 07/22/17 05:47 (Flagyl) 500 mg Q8HR PO 07/16/17 14:30 07/22/17 05:47 Cefepime HCl 2000 mg/Sodium Chloride 100 ml @ 200 mls/hr Q24H IV 07/16/17 16:00 07/21/17 13:31 (Percocet 5-325 Mg) 1 tab Q4H PRN PO 07/17/17 11:30 07/18/17 12:24 Vancomycin HCl 1000 mg/Sodium Chloride 250 ml @ 250 mls/hr WITH DIALYSIS IV 07/19/17 08:00 07/19/17 12:51 (Mag-Al Plus Susp Liq) 30 ml QID PRN PO 07/18/17 18:00 07/18/17 17:33 Lactated Ringer's 1,000 ml @ 30 mls/hr Q24H PRN IV 07/21/17 01:15 07/24/17 01:14 (Chlorhexidine 2% Cloth) 3 pack CLINICAL ESTHETICIAN PRN TOPICAL 07/21/17 01:15 07/24/17 01:14 (Roxicodone) 5 mg Q4H PRN PO 07/21/17 16:00 (Dilaudid) 2 mg Q4H PRN PO 07/21/17 16:00 07/22/17 02:00 (Morphine Inj) 2 mg Q1H PRN IV 07/21/17 16:00 Miscellaneous Information ALL NURSING DEPARTME... UNSCH PRN .XX 07/21/17 16:14 07/22/17 16:13 Assessment and Plan Problem List: (1) Anemia of renal disease ICD Codes: D63.1 - Anemia in chronic kidney disease (2) ESRD (end stage renal disease) on dialysis ICD Codes: N18.6 - End stage renal disease; Z99.2 - Dependence on renal dialysis Permanent Comment: Patient receives hemodialysis Tuesday and Tuesday as an outpatient. Medication should be adjusted for the patient's end-stage renal disease when indicated. Avoid gadolinium. Last Edited By: Kimber Hagan on Jul 16, 2017 14: 24 (3) Hypertension ICD Codes: I10 - Hypertension Status: Acute (4) UTI (urinary tract infection) ICD Codes: N39.0 - Urinary tract infection, site not specified (5) Diabetes ICD Codes: E11.9 - Diabetes Status: Acute (6) Sepsis ICD Codes: A41.9 - Sepsis, unspecified organism Status: Acute (7) PVD (peripheral vascular disease) ICD Codes: I73.9 - Peripheral vascular disease, unspecified Status: Acute Assessment and Plan 07/19/17 Left BKA: POD # 2. DREW wrap on and pain well controlled. Wound culture positive on vancomycin and flagyl ESRD: nephrology managing. dialysis today., UTI: MDR UTI on cefepime per ID HTN: continue current therapy will monitor. Diabetes: Blood sugars well controlled On SS Hypothyroidism: Continue replacement will check TSH in AM Anemia of chronic disease: anemia of chronic disease on epogen. AFIB: Is currently on Heparin BID GI and DVT prophylaxis Labs in AM. 07/20/17 Left BKA: POD # 3. DREW wrap on and pain well controlled. Wound culture positive on vancomycin and flagyl. Surgery planned for tomorrow LKA ESRD: nephrology managing. UTI: MDR UTI on cefepime per ID HTN: continue Diltazem B/P 125/69 PRN clonidine Diabetes: Blood sugars well controlled over night with range between 104-138 On SS. Patient is very unhappy about carb restriction. BS are very good will increase the carb to 2200 ADA per day. Hypothyroidism: Continue replacement will TSH WNL Anemia of chronic disease: anemia of chronic disease on epogen. HGB today at9.9 AFIB: Is currently on Heparin BID GI and DVT prophylaxis Labs in AM. 07/21/17 Left BKA: POD # 4. DREW wrap on and pain well controlled. Wound culture positive on vancomycin and flagyl. Surgery planned for today left AKA ESRD: nephrology managing. UTI: MDR UTI on cefepime per ID HTN: continue Diltazem B/P 125/69 PRN clonidine Diabetes: Blood sugars well controlled over night. On SS. Patient is very unhappy about carb restriction. BS are very good will increase the carb to 2200 ADA per day. Hypothyroidism: Continue replacement will TSH WNL Anemia of chronic disease: anemia of chronic disease on epogen. HGB stable. AFIB: Is currently on Heparin BID 07/22/17 Left AKA: POD # 1. DREW wrap on and complaining of increased pain Dilaudid PRN for discomfort. On vancomycin with dialysis and flagyl. ID following. WBC elevated at 17.2 ESRD: nephrology managing. Dialysis MWF UTI: MDR UTI on cefepime per ID HTN: continue Diltazem and PRN clonidine elevated this AM with increased pain. Diabetes: Blood sugars well controlled over night. On SS. Hypothyroidism: Continue replacement. TSH WNL Anemia of chronic disease: anemia of chronic disease on epogen. HGB stable 9.9 AFIB: Is currently on Heparin BID will restart warfarin today and bridge with heparin. BMP pending this AM. Labs in AM I and the ALARM TECHNICIAN have both examined this patient and reviewed this note and I agree with these findings and plan of care. Antoni Bird DO Problem Qualifiers (1) Sepsis: Qualified Codes: A41.9 - Sepsis, unspecified organism Cherie Loyd [facility] Jul 22, 2017 07:41
[2017-07-22 07:48] LABS: POTASSIUM 3.5 MEQ/L (3.5-5.1)
--- NOTE | 2017-07-22 08:06 | PD.VS.PN ---
Subjective POD #: 1 Procedure(s): completion L AKA Subjective/Hospital Course complains of stump pain HD stable Objective Vitals/I&O Date Time Temp Pulse Resp B/P (MAP) Pulse Ox O2 Delivery O2 Flow Rate FiO2 07/22/17 04:00 96.8 94 18 151/78 (102) 99 07/22/17 00:00 96.1 89 18 162/89 (113) 98 07/21/17 23:00 18 07/21/17 20:00 96.5 85 18 133/80 (97) 98 07/21/17 19:00 80 07/21/17 17:20 14 07/21/17 17:15 97.7 95 14 147/83 (104) 98 Nasal Cannula 2 07/21/17 17:00 92 15 144/78 (100) 99 Nasal Cannula 2 07/21/17 16:45 91 15 148/77 (100) 99 Nasal Cannula 2 07/21/17 16:30 85 20 155/80 (105) 98 Nasal Cannula 2 07/21/17 16:17 97.8 92 18 176/87 (116) 99 Simple Mask 5 07/22/17 07/22/17 07/22/17 07:00 15:00 23:00 Output Total 600 ml Balance -600 ml Exam: L AKA dressing intact - not tense Laboratory Laboratory Tests Test 07/22/17 06:08 White Blood Count 17.2 Red Blood Count 3.32 Hemoglobin 9.9 Hematocrit 30.6 Mean Corpuscular Volume 92.2 Mean Corpuscular Hemoglobin 29.7 Mean Corpuscular Hemoglobin Concent 32.2 Red Cell Distribution Width 14.5 Platelet Count 188 Mean Platelet Volume 9.0 Blood Urea Nitrogen 25 Creatinine 3.73 Random Glucose 113 Calcium Level 8.3 Sodium Level 135 Potassium Level 3.5 Chloride Level 100 Carbon Dioxide Level 27.0 Anion Gap 8 Estimat Glomerular Filtration Rate 16 Date/Time Source Procedure Growth Status 07/15/17 12:50 Blood Peripheral Aerobic Blood Culture - Final NO GROWTH IN 5 DAYS Complete 07/15/17 12:50 Blood Peripheral Anaerobic Blood Culture - Final NO GROWTH IN 5 DAYS Complete 07/15/17 12:40 Wound Foot Gram Stain - Final Complete 07/15/17 12:40 Wound Culture - Final S. Aureus Mrsa Complete Assessment and Plan Plan DREW wrap to Doretha RODRIUGEZ until Tuesday pain control PT Malick Field MD Jul 22, 2017 08:06
[2017-07-22] MEDS: PANTOPRAZOLE SOD 40 MG DELAYED RELEASE TAB PO SCH (08:48)
[2017-07-22] MEDS: FUROSEMIDE 40 MG TAB PO SCH (08:48)
[2017-07-22] MEDS: DILTIAZEM-CD 240 MG CAP ER PO SCH (08:48)
[2017-07-22] MEDS: DOCUSATE SODIUM 50 MG/SENNA 8.6 MG TAB PO SCH ×2 (08:50→20:33)
[2017-07-22] MEDS: SODIUM CHLORIDE 0.9% FLUSH 10 ML FLUSH IV FLUSH SCH ×2 (09:00→21:00)
[2017-07-22] MEDS: MORPHINE SULFATE 4 MG/ML INJ IV PRN ×2 (11:26→16:23)
[2017-07-22] MEDS: SODIUM CHLORIDE 0.9% FLUSH 10 ML FLUSH IV FLUSH PRN ×2 (11:27→16:24)
--- NOTE | 2017-07-22 14:44 | HHI.IDPN ---
Subjective Subjective Remarks Patient is a 71-year-old male, with known history of peripheral vascular disease , admitted to the hospital for further evaluation of his left foot. Patient has been in a rehabilitation facility, and being followed by a radiation protection specialist. He has wounds on the medial aspect of his left foot as well as the 4th and fifth toes. According to the patient over the last 2 weeks he has noted some odor coming out of the left foot. He has not really seen what his foot looks like post day always have a dressing around the foot. He has not had any fever or chills or sweats. His complaining of pain on the left foot. Patient has not been ambulating in the rehabilitation facility. He had undergone a right [id number] amputation back in February 2017 for gangrene. During that admission he was septic and had positive blood cultures. The stump healed without any problem. Since admission he has not had any fever. His WBC is elevated. Patient has end-stage renal disease, and gets hemodialysis every Tuesday and Tuesday. He received 1 dose of Vanco and Zosyn yesterday , and has not been on any antibiotics since. Vascular surgery has seen the patient and surgical plans have been noted. Infectious disease consultation has been requested to evaluate the patient. Notes reviewed Temps ok S/P L AKA yesterday Pain under control Antibiotics Cefepime Vancomycin Lines PIV Past Medical History Hypertension Hyperlipidemia Diabetes Atrial fibrillation GERD End-stage renal disease Thyroid disease, hypothyroidism Past Surgical History Previous tracheostomy and removal Right AKA February 2017 AV fistula in the right upper extremity, not functional Right IJ permacath Allergies: Coded Allergies: No Known Allergies (Unverified , 07/15/17) Objective . Vital Signs Date Time Temp Pulse Resp B/P (MAP) Pulse Ox O2 Delivery O2 Flow Rate FiO2 07/22/17 12:00 98.3 110 17 145/74 (97) 97 07/22/17 09:50 20 07/22/17 08:00 97.9 106 18 145/86 (105) 97 07/22/17 04:00 96.8 94 18 151/78 (102) 99 07/22/17 00:00 96.1 89 18 162/89 (113) 98 07/21/17 20:00 96.5 85 18 133/80 (97) 98 07/21/17 19:00 80 07/21/17 17:20 14 07/21/17 17:15 97.7 95 14 147/83 (104) 98 Nasal Cannula 2 07/21/17 17:00 92 15 144/78 (100) 99 Nasal Cannula 2 07/21/17 16:45 91 15 148/77 (100) 99 Nasal Cannula 2 07/21/17 16:30 85 20 155/80 (105) 98 Nasal Cannula 2 07/21/17 16:17 97.8 92 18 176/87 (116) 99 Simple Mask 5 . Laboratory Tests Test 07/21/17 05:17 07/22/17 06:08 White Blood Count 9.4 TH/MM3 17.2 TH/MM3 Red Blood Count 3.35 MIL/MM3 3.32 MIL/MM3 Hemoglobin 10.0 GM/DL 9.9 GM/DL Hematocrit 30.5 % 30.6 % Mean Corpuscular Volume 91.2 FL 92.2 FL Mean Corpuscular Hemoglobin 29.7 PG 29.7 PG Mean Corpuscular Hemoglobin Concent 32.6 % 32.2 % Red Cell Distribution Width 14.4 % 14.5 % Platelet Count 221 TH/MM3 188 TH/MM3 Mean Platelet Volume 8.2 FL 9.0 FL Laboratory Tests Test 07/21/17 05:17 07/22/17 06:08 Blood Urea Nitrogen 35 MG/DL 25 MG/DL Creatinine 4.22 MG/DL 3.73 MG/DL Random Glucose 120 MG/DL 113 MG/DL Calcium Level 8.1 MG/DL 8.3 MG/DL Sodium Level 133 MEQ/L 135 MEQ/L Potassium Level 3.6 MEQ/L 3.5 MEQ/L Chloride Level 97 MEQ/L 100 MEQ/L Carbon Dioxide Level 27.3 MEQ/L 27.0 MEQ/L Anion Gap 9 MEQ/L 8 MEQ/L Estimat Glomerular Filtration Rate 14 ML/MIN 16 ML/MIN Imaging Last Impressions Chest X-Ray 07/16/17 0000 Signed Impressions: Service Date/Time: Sunday, July 16, 2017 19:20 - CONCLUSION: No acute disease. There is no evidence of pneumonia. Filiberto Viramontes MD Tibia/Fibula X-Ray 07/15/17 0000 Signed Impressions: Service Date/Time: Saturday, July 15, 2017 13:32 - CONCLUSION: Extensive vascular calcifications, negative for fracture. Torres Hurtado MD FACR Foot X-Ray 07/15/17 0000 Signed Impressions: Service Date/Time: Saturday, July 15, 2017 13:40 - CONCLUSION: Extensive vascular calcifications with disuse osteopenia. Torres Hurtado MD FACR Physical Exam GENERAL: awake and alert, NAD SKIN: Warm and dry. No generalized rash. HEAD: Atraumatic. Normocephalic. No temporal wasting, or tenderness. EYES: Novice conjunctiva. No petechia or hemorrhage. No scleral icterus. No injection or drainage. EARS, NOSE AND THROAT: Nose without bleeding or purulent nasal discharge. Mucous membranes pink and moist. No oral lesions noted. NECK: Trachea midline. Supple and not tender, no meningeal signs CARDIOVASCULAR: Regular rate and rhythm. No murmurs, rubs or gallops heard. Permacath R chest, no evidence of infection RESPIRATORY: Clear to auscultation. Breath sounds equal bilaterally. No rales , wheezing or rhonchi ABDOMEN: Soft, non-tender, nondistended. Bowel sounds present and normoactive. No guarding. No rebound. No organomegaly. EXTREMITIES: S/P RAKA - well healed stump. LLE - has dressing to his AKA. NEUROLOGICAL: grossly non-focal. PSYCHIATRIC: Normal affect, calm and cooperative. LINE: No evidence of infection Assessment & Plan Remarks IMPRESSION Multiple ischemic and infected wounds L foot, with gangrenous changes PVD Previous RAKA for gangrene ESRD, on HD RECOMMENDATION Stop cefepime Continue IV vanco - will dose with HD - will not need Abx when he gets D/C from the hospital - give Vanco dose with HD on Tuesday, Tuesday then D/C Clinically stable from ID standpoint I will sign off Please call if with any new ID issue or question Connie Cerna MD Jul 22, 2017 14:44
[2017-07-22] MEDS ORDERED: DO NOT ADM ANY ANTICOAGULANT DRUGS OTHER PRN (16:00)
[2017-07-22] MEDS: WARFARIN SOD 2.5 MG TAB PO SCH (16:24)
[2017-07-22] MEDS: CEFEPIME INJ 2,000 MG in SODIUM CHLORIDE 0.9% INJ 100 ML IV SCH (16:24)
[2017-07-22] MEDS: ATORVASTATIN 40 MG TAB PO SCH (20:33)
[2017-07-23] VITALS (7 sets, daily range): BP systolic 119–162; BP diastolic 61–84; PULSE 87–107; RESP 17–20; TEMP 97.2–99.4; O2SAT 94–98
[2017-07-23] MEDS: LEVOTHYROXINE SODIUM 100 MCG TAB PO SCH (05:34)
[2017-07-23] MEDS: metroNIDAZOLE 500 MG TAB PO SCH ×3 (05:34→21:29)
[2017-07-23] MEDS: LEVOTHYROXINE SODIUM 75 MCG TAB PO SCH (05:34)
[2017-07-23] MEDS: HEPARIN SODIUM - SQ 10,000 UNITS/ML VIAL SQ SCH ×2 (05:36→16:30)
[2017-07-23 07:11] LABS: AUTOMATED NEUTROPHIL # 14.3 TH/MM3 (1.8-7.7); BASOPHIL # 0.1 TH/MM3 (0-0.2); BASOPHIL % 0.8 % (0.0-2.0); EOSINOPHIL # 0.5 TH/MM3 (0-0.4); HEMATOCRIT 29.5 % (39.0-51.0); HEMO FLAGS DIFF FINAL; INTERNATIONAL NORMALIZED RATIO 1.4 RATIO; LYMPH % 3.8 % (9.0-44.0); LYMPHOCYTE # 0.6 TH/MM3 (1.0-4.8); MEAN CELL VOLUME 91.9 FL (80.0-100.0); MEAN CORPUSCULAR HEMOGLOBIN 29.1 PG (27.0-34.0); MEAN CORPUSCULAR HGB CONC 31.6 % (32.0-36.0); MONO % 7.7 % (0.0-8.0); NEUT % 84.7 % (16.0-70.0); PLATELET COUNT 206 TH/MM3 (150-450); RED BLOOD COUNT 3.21 MIL/MM3 (4.50-5.90); RED CELL DISTRIBUTION WIDTH 14.3 % (11.6-17.2); WHITE BLOOD COUNT 16.8 TH/MM3 (4.0-11.0)
--- NOTE | 2017-07-23 07:14 | HHI.PR ---
Subjective Remarks aka complete resting quietly pain controlled stump warm dry Objective Vital Signs Date Time Temp Pulse Resp B/P (MAP) Pulse Ox O2 Delivery O2 Flow Rate FiO2 07/23/17 00:14 98.5 96 18 162/71 (101) 97 07/22/17 20:00 97.6 84 16 131/72 (91) 96 07/22/17 16:00 96.4 90 18 107/60 (76) 96 07/22/17 12:00 98.3 110 17 145/74 (97) 97 07/22/17 09:50 20 07/22/17 08:30 106 07/22/17 08:00 97.9 106 18 145/86 (105) 97 I/O 07/22/17 07/22/17 07/22/17 07/23/17 07/23/17 07/23/17 07:00 15:00 23:00 07:00 15:00 23:00 Intake Total 940 ml Output Total 600 ml 275 ml Balance -600 ml 665 ml Intake Oral 940 ml Output Urine Total 600 ml 275 ml # Bowel Movements 0 Result Diagram: 07/22/17 0608 07/22/17 0608 Procedures left BKA on 07/17 Objective Remarks GENERAL: Well-nourished, well-developed patient. SKIN: Warm and dry. HEAD: Normocephalic. EYES: No scleral icterus. No injection or drainage. NECK: Supple, trachea midline. No JVD or lymphadenopathy. CARDIOVASCULAR: Regular rate and rhythm without murmurs, gallops, or rubs. RESPIRATORY: Breath sounds equal bilaterally. No accessory muscle use. GASTROINTESTINAL: Abdomen soft, non-tender, nondistended. EXTREMITIES: R aboveknee amp well healed new left above knee amp healing well NEUROLOGICAL: Awake, alert, and oriented x 3. Non-focal. Medications and IVs Inpatient Medications Acetaminophen (Tylenol) 650 mg UNSCH PRN PO for headach, pain, temp > 101F; Start 07/15/17 at 15:15 Al Hydrox/Mg Hydrox/Simethicone (Mag-Al Plus Susp Liq) 30 ml QID PRN PO INDIGESTION Last administered on 07/18/17t 17:33; Start 07/18/17 at 18:00 Albumin Human (Albumin 25% Inj) 25 gm UNSCH PRN IV WITH DIALYSIS; Start at 15:15 Atorvastatin Calcium (Lipitor) 40 mg HS PO Last administered on 07/22/17 20:33 ; Start 07/15/17 at 21:00 Bisacodyl (Dulcolax Supp) 10 mg DAILY PRN RECTAL SEVERE CONSITIPATION; Start at 14:30 Calcium Acetate (Phoslo) 667 mg TID PO Last administered on 07/20/17 13:25; Start 07/15/17 at 18:00; Stop 07/20/17 at 15:57; Status DC Cefepime HCl 2000 mg/Sodium Chloride 100 ml @ 200 mls/hr Q24H IV Last administered on 07/22/17 16:24; Start 07/16/17 at 16:00 Chlorhexidine Gluconate (Chlorhexidine 2% Cloth) 3 pack HEMATOLOGY TECHNOLOGIST PRN TOPICAL SEE LABEL COMMENTS; Start 07/21/17 at 01:15; Stop 07/24/17 at 01:14 Clonidine (Catapres) 0.1 mg UNSCH PRN PO for BP > 180/100 X 2 readings; Start 07/15/17 at 15:15 Diltiazem HCl (Cardizem Cd) 240 mg DAILY PO Last administered on 07/22/17 08:48 ; Start 07/16/17 at 09:00 Diphenhydramine HCl (Benadryl) 25 mg UNSCH PRN PO for hives/itching/ anaphylaxis Last administered on 07/16/17 22:54; Start 07/15/17 at 15:15 Furosemide (Lasix) 40 mg DAILY PO Last administered on 07/22/17 08:48; Start at 09:00 Gelatin (Gelfoam 12 Mm/7 Mm Top) 1 foam UNSCH PRN TOP SEE LABEL COMMENTS; Start 07/15/17 at 15:15 Gentamicin Sulfate (Gentamicin (Dialysis) Inj) 20 mg UNSCH PRN IV WITH DIALYSIS Last administered on 07/21/17 12:45; Start 07/15/17 at 15:15 Glipizide (Glucotrol) 2.5 mg AC BREAKFAST PO ; Start 07/16/17 at 07:00; Stop 07/16/17 at 07:00; Status DC Heparin Sodium (Porcine) (Heparin Inj) UNSCH PRN .XX WITH DIALYSIS Last administered on 07/19/17 12:30; Start 07/15/17 at 15:15 Hydromorphone HCl (Dilaudid) 2 mg Q4H PRN PO PAIN SCALE 6 TO 10 Last administered on 07/22/17 14:10; Start 07/21/17 at 16:00 Insulin Human Regular (NovoLIN R INJ) See Protocol Table ... HEMATOLOGY TECHNOLOGIST PRN SQ SEE PROTOCOL TABLE; Start 07/16/17 at 21:15; Stop 07/19/17 at 21:14; Status DC Lactated Ringer's 1,000 ml @ 30 mls/hr Q24H PRN IV SEE LABEL COMMENTS; Start at 01:15; Stop 07/24/17 at 01:14 Lactulose (Lactulose Liq) 30 ml DAILY PRN PO SEVERE CONSITIPATION; Start at 14:30 Levothyroxine Sodium (Synthroid) 75 mcg DAILY@0600 PO Last administered on 05:34; Start 07/16/17 at 06:00 Magnesium Hydroxide (Milk Of Magnesia Liq) 30 ml Q12H PRN PO MILD - MODERATE CONSTIPATION; Start 07/15/17 at 14:30 Mannitol (Mannitol Inj) 12.5 gm UNSCH PRN IV WITH DIALYSIS; Start 07/15/17 at 15 :15 Metoprolol Tartrate (Lopressor) 25 mg HEMATOLOGY TECHNOLOGIST PRN PO SEE LABEL COMMENTS; Start 07/16/17 at 21:15; Stop 07/19/17 at 21:14; Status DC Metronidazole (Flagyl) 500 mg Q8HR PO Last administered on 07/23/17 05:34; Start 07/16/17 at 14:30 Miscellaneous Information ALL NURSING DEPARTME... UNSCH PRN OTHER SEE LABEL COMMENTS; Start 07/22/17 at 16:00; Stop 07/23/17 at 15:59 Morphine Sulfate (Morphine Inj) 2 mg Q1H PRN IV BREAKTHROUGH PAIN Last administered on 07/22/17 16:23; Start 07/21/17 at 16:00 Naloxone HCl (Narcan Inj) 0.4 mg UNSCH PRN IV SEE LABEL COMMENTS; Start at 14:30 Nitroglycerin (Nitrostat Sl) 0.4 mg UNSCH PRN SL CHEST PAIN; Start 07/15/17 at 15:15 Ondansetron HCl (Zofran Inj) 4 mg UNSCH PRN IV WITH DIALYSIS; Start 07/15/17 at 15:15 Oxycodone HCl (Roxicodone) 5 mg Q4H PRN PO PAIN SCALE 1 TO 5; Start 07/21/17 at 16:00 Oxycodone/ Acetaminophen (Percocet 5-325 Mg) 1 tab Q4H PRN PO pain 1-10 Last administered on 07/18/17 12:24; Start 07/17/17 at 11:30 Pantoprazole Sodium (Protonix) 40 mg DAILY PO Last administered on 07/22/17 08: 48; Start 07/16/17 at 09:00 Patient Medication Teaching (Coumadin Booklet) 1 ONCE ONCE OTHER Last administered on 07/22/17 17:16; Start 07/22/17 at 16:00; Stop 07/22/17 at 16:01; Status DC Piperacillin Sod/ Tazobactam Sod 50 ml @ 100 mls/hr Q8H IV ; Start 07/16/17 at 17:00; Stop 07/16/17 at 17:00; Status DC Povidone Iodine (Betadine 5% Antisepsis Kit) 1 applic HEMATOLOGY TECHNOLOGIST PRN EACH NARE SEE LABEL COMMENTS; Start 07/16/17 at 21:15; Stop 07/19/17 at 21:14; Status DC Senna/Docusate Sodium (Mary-Colace) 1 tab BID PO Last administered on 07/22/17 20:33; Start 07/15/17 at 21:00 Sennosides (Senokot) 17.2 mg Q12H PRN PO MODERATE - SEVERE CONSTIPATION; Start 07/15/17 at 14:30 Sitagliptin Phosphate (Januvia) 50 mg DAILY PO ; Start 07/16/17 at 09:00; Stop at 09:00; Status DC Sodium Chloride 250 ml @ 250 mls/hr Q1H ONCE IV Last administered on 07/21/17 15:21; Start 07/21/17 at 15:50; Stop 07/21/17 at 16:49; Status DC Sodium Chloride (NS Flush) 5 ml UNSCH PRN IV FLUSH WITH DIALYSIS; Start at 15:15 Vancomycin HCl 1000 mg/Sodium Chloride 250 ml @ 250 mls/hr WITH DIALYSIS IV Last administered on 07/19/17 12:51; Start 07/19/17 at 08:00 Warfarin Sodium (Coumadin) 2.5 mg DAILY@16 PO Last administered on 07/22/17 16: 24; Start 07/22/17 at 16:00 Assessment and Plan Problem List: (1) Osteomyelitis ICD Codes: M86.9 - Osteomyelitis, unspecified Status: Acute (2) PVD (peripheral vascular disease) ICD Codes: I73.9 - Peripheral vascular disease, unspecified Status: Acute Plan: discussed rehab with patient he requests [facility] await placement after PÉREZ Assessment and Plan advance diet ck lab am Problem Qualifiers (1) Osteomyelitis: Qualified Codes: M86.9 - Osteomyelitis, unspecified Antoni Bird DO Jul 23, 2017 07:14
--- NOTE | 2017-07-23 07:28 | PD.VS.PN ---
Subjective POD #: 2 Procedure(s): completion L AKA Subjective/Hospital Course complains of stump pain but appears more comfortably than before No phantom pain pallavi diet scheduled for HD today Objective Vitals/I&O Date Time Temp Pulse Resp B/P (MAP) Pulse Ox O2 Delivery O2 Flow Rate FiO2 07/23/17 04:00 97.5 107 18 162/84 (110) 98 07/23/17 00:14 98.5 96 18 162/71 (101) 97 07/22/17 20:00 97.6 84 16 131/72 (91) 96 07/22/17 16:00 96.4 90 18 107/60 (76) 96 07/22/17 12:00 98.3 110 17 145/74 (97) 97 07/22/17 09:50 20 07/22/17 08:30 106 07/22/17 08:00 97.9 106 18 145/86 (105) 97 07/23/17 07/23/17 07/23/17 07:00 15:00 23:00 Output Total 400 ml Balance -400 ml Exam: L AKA without edema - DREW wrap removed today; dressing with minimal serous drainage Laboratory Laboratory Tests Test 07/23/17 06:46 White Blood Count 16.8 Red Blood Count 3.21 Hemoglobin 9.3 Hematocrit 29.5 Mean Corpuscular Volume 91.9 Mean Corpuscular Hemoglobin 29.1 Mean Corpuscular Hemoglobin Concent 31.6 Red Cell Distribution Width 14.3 Platelet Count 206 Mean Platelet Volume 8.4 Neutrophils (%) (Auto) 84.7 Lymphocytes (%) (Auto) 3.8 Monocytes (%) (Auto) 7.7 Eosinophils (%) (Auto) 3.0 Basophils (%) (Auto) 0.8 Neutrophils # (Auto) 14.3 Lymphocytes # (Auto) 0.6 Monocytes # (Auto) 1.3 Eosinophils # (Auto) 0.5 Basophils # (Auto) 0.1 CBC Comment DIFF FINAL Differential Comment Prothrombin Time 16.0 Prothromb Time International Ratio 1.4 Date/Time Source Procedure Growth Status 07/15/17 12:50 Blood Peripheral Aerobic Blood Culture - Final NO GROWTH IN 5 DAYS Complete 07/15/17 12:50 Blood Peripheral Anaerobic Blood Culture - Final NO GROWTH IN 5 DAYS Complete 07/15/17 12:40 Wound Foot Gram Stain - Final Complete 07/15/17 12:40 Wound Culture - Final S. Aureus Mrsa Complete Assessment and Plan Plan leave occlusive dressing on incision but ok to have DREW wrap off given improved comfort with it removed Ok to get OOB with PT pain control - ok to add gabapentin or similar to help control pain with non- narcotic options Discharge Planning cleared from vascular surgery standpoint likely tomorrow (POD#3) Malick Field MD Jul 23, 2017 07:28
[2017-07-23 07:33] LABS: BICARBONATE 26.3 MEQ/L (21.0-32.0); POTASSIUM 3.4 MEQ/L (3.5-5.1)
[2017-07-23] MEDS: PANTOPRAZOLE SOD 40 MG DELAYED RELEASE TAB PO SCH (07:52)
[2017-07-23] MEDS: DOCUSATE SODIUM 50 MG/SENNA 8.6 MG TAB PO SCH ×2 (07:53→21:00)
[2017-07-23] MEDS: DILTIAZEM-CD 240 MG CAP ER PO SCH (07:53)
[2017-07-23] MEDS: SODIUM CHLORIDE 0.9% FLUSH 10 ML FLUSH IV FLUSH SCH ×2 (07:53→21:29)
[2017-07-23] MEDS: FUROSEMIDE 40 MG TAB PO SCH (07:53)
--- NOTE | 2017-07-23 11:15 | HHI.NPPN ---
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 Patient also has a history of hypertension, atrial fibrillation, peripheral vascular disease, CHF status post right AKA a few months ago now presenting with gangrene of the left foot and is scheduled unfortunately for another amputation. Patient was also being treated prior to admission for urinary tract infection with cefepime and in the dialysis unit secondary to Morganella morganii which was sensitive to cefepime but resistant to several antibiotics including Cipro, levofloxacin, piperacillin/azobactam. Patient was seen during dialysis today. No verbal complaints. Interval History Patient was seen during dialysis today. No verbal complaints. Objective Data Data Vital Signs Date Time Temp Pulse Resp B/P (MAP) Pulse Ox O2 Delivery O2 Flow Rate FiO2 07/23/17 08:00 99.4 99 20 132/75 (94) 96 07/23/17 04:00 97.5 107 18 162/84 (110) 98 07/23/17 00:14 98.5 96 18 162/71 (101) 97 07/22/17 20:00 97.6 84 16 131/72 (91) 96 07/22/17 16:00 96.4 90 18 107/60 (76) 96 07/22/17 12:00 98.3 110 17 145/74 (97) 97 -: 07/23/17 0646 07/23/17 0646 Physical Exam General Appearance: Well Developed, No Acute Distress, Comfortable Eyes Eye Exam: Pupils Equal, Pupils Reactive Pulmonary Resp Exam: Clear Bilaterally, Breath Sounds Equal, No Distress Cardiology CV Exam: Regular, Normal Sinus Rhythm Gastrointestinal/Abdomen GI Exam: Soft, Non-Tender Integumentary Skin Exam: Clear, Warm, Normal Turgor Extremeties Extremities Exam: No Edema Neurologic Neuro Exam: Alert, Awake, Speech Clear Assessment/Plan Discussed Condition With: Patient, Spouse Problem List: (1) ESRD (end stage renal disease) on dialysis ICD Codes: N18.6 - End stage renal disease; Z99.2 - Dependence on renal dialysis Plan: Patient appears to be stable on dialysis today. Noted tentative plans for discharge after Hurricaine has passed. Continue TTS schedule. Infectious disease indicating antibiotics will not be required post discharge. Permanent Comment: Patient receives hemodialysis Tuesday and Tuesday as an outpatient. Medication should be adjusted for the patient's end-stage renal disease when indicated. Avoid gadolinium. Last Edited By: Kimber Hagan on Jul 16, 2017 14: 24 (2) UTI (urinary tract infection) ICD Codes: N39.0 - Urinary tract infection, site not specified Plan: Patient was receiving cefepime and in the dialysis unit for UTI related to Morganella morganii. Multiple drug resistances but sensitive to cefepime. Treatment per infectious disease. (3) Anemia of renal disease ICD Codes: D63.1 - Anemia in chronic kidney disease Plan: Epogen for for anemia renal disease as indicated. (4) Hypertension ICD Codes: I10 - Hypertension Status: Acute (5) Diabetes ICD Codes: E11.9 - Diabetes Status: Acute (6) Hypophosphatemia ICD Codes: E83.39 - Other disorders of phosphorus metabolism Plan: Patient has a low phosphate level despite having end-stage renal disease most likely related to diminished nutritional intake in association with phosphate binders. We'll discontinue PhosLo at this time Plan The exam, history, and the medical decision-making described in the above note were completed with the assistance of the JOSEPH Goncalves reviewed and agree with the findings presented. Jeremiah Hagan MD Jul 23, 2017 11:15
[2017-07-23] MEDS: VANCOMYCIN INJ 1,000 MG in SODIUM CHLOR 0.9% 250 ML INJ 250 ML IV SCH (12:18)
[2017-07-23] MEDS: HEPARIN SODIUM - IV 10,000 UNITS/10 ML VIAL PRN (12:19)
[2017-07-23] MEDS: GENTAMICIN SULFATE (DIALYSIS USE ONLY) 20 MG/2 ML VIAL IV PRN (12:19)
[2017-07-23] MEDS: CEFEPIME INJ 2,000 MG in SODIUM CHLORIDE 0.9% INJ 100 ML IV SCH (16:28)
[2017-07-23] MEDS: WARFARIN SOD 2.5 MG TAB PO SCH (16:29)
[2017-07-23] MEDS: HYDROmorphone HCL 2 MG TAB PO PRN (16:40)
[2017-07-23] MEDS: ATORVASTATIN 40 MG TAB PO SCH (21:29)
[2017-07-24] VITALS: BP 121/62; PULSE 81; RESP 17; TEMP 98.7; O2SAT 98
[2017-07-24 04:00] VITALS: BP 126/62; PULSE 72; RESP 17; TEMP 98.6; O2SAT 98
[2017-07-24] MEDS: LEVOTHYROXINE SODIUM 75 MCG TAB PO SCH (04:56)
[2017-07-24] MEDS: LEVOTHYROXINE SODIUM 100 MCG TAB PO SCH (04:56)
[2017-07-24] MEDS: metroNIDAZOLE 500 MG TAB PO SCH ×3 (04:56→19:34)
[2017-07-24] MEDS: HEPARIN SODIUM - SQ 10,000 UNITS/ML VIAL SQ SCH ×2 (04:57→16:16)
[2017-07-24 07:26] LABS: AUTOMATED NEUTROPHIL # 9.3 TH/MM3 (1.8-7.7); BASOPHIL % 0.4 % (0.0-2.0); EOSINOPHIL # 0.6 TH/MM3 (0-0.4); HEMO FLAGS DIFF FINAL; LYMPH % 7.7 % (9.0-44.0); MEAN CELL VOLUME 91.5 FL (80.0-100.0); MEAN CORPUSCULAR HEMOGLOBIN 29.9 PG (27.0-34.0); MEAN CORPUSCULAR HGB CONC 32.6 % (32.0-36.0); MONO % 11.7 % (0.0-8.0); NEUT % 75.2 % (16.0-70.0); PLATELET COUNT 207 TH/MM3 (150-450); RED BLOOD COUNT 3.28 MIL/MM3 (4.50-5.90); RED CELL DISTRIBUTION WIDTH 14.7 % (11.6-17.2); WHITE BLOOD COUNT 12.4 TH/MM3 (4.0-11.0)
[2017-07-24 07:46] LABS: INTERNATIONAL NORMALIZED RATIO 1.5 RATIO; PROTHROMBIN TIME - PATIENT 16.3 SEC (9.8-11.6)
[2017-07-24 07:58] LABS: POTASSIUM 3.3 MEQ/L (3.5-5.1)
[2017-07-24 08:00] VITALS: BP 155/91; PULSE 98; RESP 17; TEMP 98; O2SAT 96
[2017-07-24] MEDS: DILTIAZEM-CD 240 MG CAP ER PO SCH (08:01)
[2017-07-24] MEDS: PANTOPRAZOLE SOD 40 MG DELAYED RELEASE TAB PO SCH (08:01)
[2017-07-24] MEDS: DOCUSATE SODIUM 50 MG/SENNA 8.6 MG TAB PO SCH ×2 (08:02→19:36)
[2017-07-24] MEDS: SODIUM CHLORIDE 0.9% FLUSH 10 ML FLUSH IV FLUSH SCH ×2 (08:02→19:33)
[2017-07-24] MEDS: FUROSEMIDE 40 MG TAB PO SCH (08:02)
--- NOTE | 2017-07-24 08:21 | PD.VS.PN ---
Subjective POD #: 3 Procedure(s): completion L AKA Subjective/Hospital Course doing well notes pain is better hasn't been OOB had HD yesterday (TTS usually) Objective Vitals/I&O Date Time Temp Pulse Resp B/P (MAP) Pulse Ox O2 Delivery O2 Flow Rate FiO2 07/24/17 04:00 98.6 72 17 126/62 (83) 98 07/24/17 00:00 98.7 81 17 121/62 (81) 98 07/23/17 20:08 91 07/23/17 20:00 99.2 89 17 128/69 (88) 97 07/23/17 16:00 99.4 87 18 131/61 (84) 96 07/23/17 12:00 97.2 89 18 119/68 (85) 94 07/24/17 07/24/17 07/24/17 07:00 15:00 23:00 Intake Total 240 ml Balance 240 ml Exam: L AKA incision c/d/i - dressings removed today no hematoma no incisional erythema sayra intact Laboratory Laboratory Tests Test 07/24/17 06:04 White Blood Count 12.4 Red Blood Count 3.28 Hemoglobin 9.8 Hematocrit 30.0 Mean Corpuscular Volume 91.5 Mean Corpuscular Hemoglobin 29.9 Mean Corpuscular Hemoglobin Concent 32.6 Red Cell Distribution Width 14.7 Platelet Count 207 Mean Platelet Volume 9.0 Neutrophils (%) (Auto) 75.2 Lymphocytes (%) (Auto) 7.7 Monocytes (%) (Auto) 11.7 Eosinophils (%) (Auto) 5.0 Basophils (%) (Auto) 0.4 Neutrophils # (Auto) 9.3 Lymphocytes # (Auto) 1.0 Monocytes # (Auto) 1.4 Eosinophils # (Auto) 0.6 Basophils # (Auto) 0.0 CBC Comment DIFF FINAL Differential Comment Prothrombin Time 16.3 Prothromb Time International Ratio 1.5 Blood Urea Nitrogen 19 Creatinine 3.50 Random Glucose 83 Calcium Level 7.5 Sodium Level 134 Potassium Level 3.3 Chloride Level 96 Carbon Dioxide Level 29.0 Anion Gap 9 Estimat Glomerular Filtration Rate 17 Date/Time Source Procedure Growth Status 07/15/17 12:50 Blood Peripheral Aerobic Blood Culture - Final NO GROWTH IN 5 DAYS Complete 07/15/17 12:50 Blood Peripheral Anaerobic Blood Culture - Final NO GROWTH IN 5 DAYS Complete 07/15/17 12:40 Wound Foot Gram Stain - Final Complete 07/15/17 12:40 Wound Culture - Final S. Aureus Mrsa Complete Assessment and Plan Plan healing nicely needs PT/OOB at least to chair pain meds d/c planning - ok to d/c to rehab from a vascular surgery standpoint Discharge Planning cleared from vascular surgery standpoint likely today (POD#3) Malick Field MD Jul 24, 2017 08:21
--- NOTE | 2017-07-24 08:35 | HHI.PR ---
Subjective Remarks aka complete resting quietly pain controlled stump warm dry able to position self in bed await rehab placement Objective Vital Signs Date Time Temp Pulse Resp B/P (MAP) Pulse Ox O2 Delivery O2 Flow Rate FiO2 07/24/17 08:00 98.0 98 17 155/91 (112) 96 07/24/17 04:00 98.6 72 17 126/62 (83) 98 07/24/17 00:00 98.7 81 17 121/62 (81) 98 07/23/17 20:08 91 07/23/17 20:00 99.2 89 17 128/69 (88) 97 07/23/17 16:00 99.4 87 18 131/61 (84) 96 07/23/17 12:00 97.2 89 18 119/68 (85) 94 I/O 07/23/17 07/23/17 07/23/17 07/24/17 07/24/17 07/24/17 07:00 15:00 23:00 07:00 15:00 23:00 Intake Total 450 ml 240 ml Output Total 400 ml 2000 ml 450 ml Balance -400 ml -2000 ml 0 ml 240 ml Intake Oral 450 ml 240 ml Output Urine Total 400 ml 450 ml Hemodialysis 2000 ml # Voids 1 2 # Bowel Movements 0 Result Diagram: 07/24/17 0604 07/24/17 06 Procedures left BKA on 07/17 Objective Remarks GENERAL: Well-nourished, well-developed patient. SKIN: Warm and dry. HEAD: Normocephalic. EYES: No scleral icterus. No injection or drainage. NECK: Supple, trachea midline. No JVD or lymphadenopathy. CARDIOVASCULAR: Regular rate and rhythm without murmurs, gallops, or rubs. RESPIRATORY: Breath sounds equal bilaterally. No accessory muscle use. GASTROINTESTINAL: Abdomen soft, non-tender, nondistended. EXTREMITIES: R aboveknee amp well healed new left above knee amp healing well NEUROLOGICAL: Awake, alert, and oriented x 3. Non-focal. Assessment and Plan Problem List: (1) Osteomyelitis ICD Codes: M86.9 - Osteomyelitis, unspecified Status: Acute (2) PVD (peripheral vascular disease) ICD Codes: I73.9 - Peripheral vascular disease, unspecified Status: Acute Plan: discussed rehab with patient he requests [facility] HR await placement after PÉREZ Assessment and Plan advance diet ck lab am sugar hgb a1c Problem Qualifiers (1) Osteomyelitis: Qualified Codes: M86.9 - Osteomyelitis, unspecified Antoni Bird DO Jul 24, 2017 08:35
[2017-07-24 12:00] VITALS: BP 137/76; PULSE 97; RESP 18; TEMP 97.6; O2SAT 97
[2017-07-24] MEDS: HYDROmorphone HCL 2 MG TAB PO PRN ×2 (12:51→19:34)
[2017-07-24] MEDS ORDERED: POTASSIUM CHLORIDE 10 MEQ CONTROLLED RELEASE TAB PO ONE (13:45)
[2017-07-24 16:00] VITALS: BP 154/82; PULSE 104; RESP 17; TEMP 97.9; O2SAT 97
[2017-07-24] MEDS: WARFARIN SOD 2.5 MG TAB PO SCH (16:13)
[2017-07-24] MEDS: CEFEPIME INJ 2,000 MG in SODIUM CHLORIDE 0.9% INJ 100 ML IV SCH (16:13)
[2017-07-24] MEDS: ATORVASTATIN 40 MG TAB PO SCH (19:34)
[2017-07-24] MEDS: diphenhydrAMINE HCL 25 MG CAP PO PRN (19:34)
[2017-07-24 20:00] VITALS: BP 137/80; PULSE 95; RESP 19; TEMP 96.8; O2SAT 98
[2017-07-25] VITALS: BP 143/83; PULSE 95; RESP 19; TEMP 97; O2SAT 95
[2017-07-25 04:00] VITALS: BP 142/89; PULSE 100; RESP 19; TEMP 96.6; O2SAT 89
[2017-07-25 05:42] LABS: AUTOMATED NEUTROPHIL # 6.8 TH/MM3 (1.8-7.7); BASOPHIL # 0.2 TH/MM3 (0-0.2); BASOPHIL % 2.4 % (0.0-2.0); EOSINOPHIL # 0.6 TH/MM3 (0-0.4); EOSINOPHIL % 6.5 % (0.0-4.0); HEMATOCRIT 28.7 % (39.0-51.0); HEMO FLAGS DIFF FINAL; LYMPH % 9.9 % (9.0-44.0); MEAN CELL VOLUME 91.5 FL (80.0-100.0); MEAN CORPUSCULAR HEMOGLOBIN 30.5 PG (27.0-34.0); MEAN CORPUSCULAR HGB CONC 33.3 % (32.0-36.0); MONO % 11.1 % (0.0-8.0); NEUT % 70.1 % (16.0-70.0); PLATELET COUNT 246 TH/MM3 (150-450); RED BLOOD COUNT 3.13 MIL/MM3 (4.50-5.90); WHITE BLOOD COUNT 9.8 TH/MM3 (4.0-11.0)
[2017-07-25] MEDS: metroNIDAZOLE 500 MG TAB PO SCH ×3 (05:44→20:24)
[2017-07-25] MEDS: LEVOTHYROXINE SODIUM 100 MCG TAB PO SCH (05:44)
[2017-07-25] MEDS: HEPARIN SODIUM - SQ 10,000 UNITS/ML VIAL SQ SCH ×2 (05:44→15:23)
[2017-07-25] MEDS: LEVOTHYROXINE SODIUM 75 MCG TAB PO SCH (05:44)
[2017-07-25 05:53] LABS: INTERNATIONAL NORMALIZED RATIO 1.5 RATIO; PROTHROMBIN TIME - PATIENT 17.1 SEC (9.8-11.6)
[2017-07-25] MEDS: HYDROmorphone HCL 2 MG TAB PO PRN ×2 (06:13→15:22)
[2017-07-25 06:24] LABS: ANION GAP 10 MEQ/L (5-15); BLOOD UREA NITROGEN 26 MG/DL (7-18); CHLORIDE 97 MEQ/L (98-107); GLOMERULAR FILTRATION RATE 14 ML/MIN (>89); POTASSIUM 3.5 MEQ/L (3.5-5.1); SODIUM (NA) 134 MEQ/L (136-145)
[2017-07-25] MEDS: FUROSEMIDE 40 MG TAB PO SCH (08:30)
[2017-07-25] MEDS: SODIUM CHLORIDE 0.9% FLUSH 10 ML FLUSH IV FLUSH SCH ×2 (08:30→20:23)
[2017-07-25] MEDS: DILTIAZEM-CD 240 MG CAP ER PO SCH (08:30)
[2017-07-25] MEDS: PANTOPRAZOLE SOD 40 MG DELAYED RELEASE TAB PO SCH (08:30)
[2017-07-25] MEDS: DOCUSATE SODIUM 50 MG/SENNA 8.6 MG TAB PO SCH ×2 (08:31→20:23)
[2017-07-25 08:40] VITALS: BP 154/85; PULSE 84; RESP 20; TEMP 97.5; O2SAT 97
[2017-07-25 12:00] VITALS: BP 156/92; PULSE 97; RESP 16; TEMP 96.9; O2SAT 99
[2017-07-25 13:57] LABS: HEMOGLOBIN A1a 1.1 %; HEMOGLOBIN A1b 2.4 %; HEMOGLOBIN Ao 82.2 %; HEMOGLOBIN LA1C 2.8 %; HEMOGLOBIN P3 6.7 %
--- NOTE | 2017-07-25 14:13 | HHI.PR ---
Subjective Remarks Denies any CP or SOB. S/P Left AKA healing nicely. Objective Vital Signs Date Time Temp Pulse Resp B/P (MAP) Pulse Ox O2 Delivery O2 Flow Rate FiO2 07/25/17 12:00 96.9 97 16 156/92 (113) 99 07/25/17 08:40 97.5 84 20 154/85 (108) 97 07/25/17 04:00 96.6 100 19 142/89 (106) 89 07/25/17 00:00 97.0 95 19 143/83 (103) 95 07/24/17 20:00 96.8 95 19 137/80 (99) 98 07/24/17 16:00 97.9 104 17 154/82 (106) 97 I/O 07/24/17 07/24/17 07/24/17 07/25/17 07/25/17 07/25/17 07:00 15:00 23:00 07:00 15:00 23:00 Intake Total 240 ml 1300 ml 240 ml Output Total 700 ml 150 ml Balance 240 ml 600 ml 90 ml Intake Oral 240 ml 1200 ml 240 ml IV Total 100 ml Output Urine Total 700 ml 150 ml # Voids 2 0 # Bowel Movements 0 Result Diagram: 07/25/17 0501 07/25/17 0501 Procedures left BKA on 07/17 Objective Remarks GENERAL: alert SKIN: Warm and dry. Left below knee amputation with drew on. HEAD: Normocephalic. EYES: No scleral icterus. No injection or drainage. NECK: Supple, trachea midline. No JVD or lymphadenopathy. CARDIOVASCULAR: Regular rate and rhythm without murmurs, gallops, or rubs. RESPIRATORY: Breath sounds equal bilaterally. No accessory muscle use. GASTROINTESTINAL: Abdomen soft, non-tender, nondistended. MUSCULOSKELETAL: No cyanosis, or edema. Right AKA BACK: Nontender without obvious deformity. No CVA tenderness. Medications and IVs Current Medications Medications (Trade) Dose Ordered Sig/Libia Route Start Time Stop Time Status Last Admin (NS Flush) 2 ml UNSCH PRN IV FLUSH 07/15/17 14:30 07/22/17 16:24 (NS Flush) 2 ml BID IV FLUSH 07/15/17 21:00 07/25/17 08:30 (Tylenol) 650 mg Q4H PRN PO 07/15/17 14:30 (Zofran Inj) 4 mg Q6H PRN IVP 07/15/17 14:30 (Heparin Inj) 5,000 units Q12H SQ 07/15/17 18:00 07/25/17 05:44 (Narcan Inj) 0.4 mg UNSCH PRN IV 07/15/17 14:30 (Mary-Colace) 1 tab BID PO 07/15/17 21:00 07/22/17 20:33 (Milk Of Magnesia Liq) 30 ml Q12H PRN PO 07/15/17 14:30 (Senokot) 17.2 mg Q12H PRN PO 07/15/17 14:30 (Dulcolax Supp) 10 mg DAILY PRN RECTAL 07/15/17 14:30 (Lactulose Liq) 30 ml DAILY PRN PO 07/15/17 14:30 (Lipitor) 40 mg HS PO 07/15/17 21:00 07/24/17 19:34 (Cardizem Cd) 240 mg DAILY PO 07/16/17 09:00 07/25/17 08:30 (Lasix) 40 mg DAILY PO 07/16/17 09:00 07/25/17 08:30 (Protonix) 40 mg DAILY PO 07/16/17 09:00 07/25/17 08:30 (Synthroid) 100 mcg DAILY@0600 PO 07/16/17 06:00 07/25/17 05:44 Sodium Chloride 1,000 ml @ 0 mls/hr Q0M PRN OTHER 07/15/17 15:03 (Heparin Inj) 8,000 units UNSCH PRN IVF 07/15/17 15:15 Sodium Chloride 1,000 ml @ 200 mls/hr Q5H PRN IV 07/15/17 15:03 Sodium Chloride 1,000 ml @ 0 mls/hr Q0M PRN OTHER 07/15/17 15:03 (Mannitol Inj) 12.5 gm UNSCH PRN IV 07/15/17 15:15 (Albumin 25% Inj) 25 gm UNSCH PRN IV 07/15/17 15:15 (NS Flush) 5 ml UNSCH PRN IV FLUSH 07/15/17 15:15 (Heparin Inj) UNSCH PRN .XX 07/15/17 15:15 07/23/17 12:19 (Gentamicin (Dialysis) Inj) 20 mg UNSCH PRN IV 07/15/17 15:15 07/23/17 12:19 (Zofran Inj) 4 mg UNSCH PRN IV 07/15/17 15:15 (Tylenol) 650 mg UNSCH PRN PO 07/15/17 15:15 (Benadryl) 25 mg UNSCH PRN PO 07/15/17 15:15 07/24/17 19:34 (Nitrostat Sl) 0.4 mg UNSCH PRN SL 07/15/17 15:15 (Catapres) 0.1 mg UNSCH PRN PO 07/15/17 15:15 (Gelfoam 12 Mm/7 Mm Top) 1 foam UNSCH PRN TOP 07/15/17 15:15 (Synthroid) 75 mcg DAILY@0600 PO 07/16/17 06:00 07/25/17 05:44 (Flagyl) 500 mg Q8HR PO 07/16/17 14:30 07/25/17 05:44 (Percocet 5-325 Mg) 1 tab Q4H PRN PO 07/17/17 11:30 07/18/17 12:24 Vancomycin HCl 1000 mg/Sodium Chloride 250 ml @ 250 mls/hr WITH DIALYSIS IV 07/19/17 08:00 07/23/17 12:18 (Mag-Al Plus Susp Liq) 30 ml QID PRN PO 07/18/17 18:00 07/18/17 17:33 (Roxicodone) 5 mg Q4H PRN PO 07/21/17 16:00 (Dilaudid) 2 mg Q4H PRN PO 07/21/17 16:00 07/25/17 06:13 (Morphine Inj) 2 mg Q1H PRN IV 07/21/17 16:00 07/22/17 16:23 (Coumadin) 2.5 mg DAILY@16 PO 07/22/17 16:00 07/24/17 16:13 Assessment and Plan Problem List: (1) Anemia of renal disease ICD Codes: D63.1 - Anemia in chronic kidney disease (2) ESRD (end stage renal disease) on dialysis ICD Codes: N18.6 - End stage renal disease; Z99.2 - Dependence on renal dialysis Permanent Comment: Patient receives hemodialysis Tuesday and Tuesday as an outpatient. Medication should be adjusted for the patient's end-stage renal disease when indicated. Avoid gadolinium. Last Edited By: Kimber Hagan on Jul 16, 2017 14: 24 (3) Hypertension ICD Codes: I10 - Hypertension Status: Acute (4) UTI (urinary tract infection) ICD Codes: N39.0 - Urinary tract infection, site not specified (5) Diabetes ICD Codes: E11.9 - Diabetes Status: Acute (6) Sepsis ICD Codes: A41.9 - Sepsis, unspecified organism Status: Acute (7) PVD (peripheral vascular disease) ICD Codes: I73.9 - Peripheral vascular disease, unspecified Status: Acute Assessment and Plan 07/19/17 Left BKA: POD # 2. DREW wrap on and pain well controlled. Wound culture positive on vancomycin and flagyl ESRD: nephrology managing. dialysis today., UTI: MDR UTI on cefepime per ID HTN: continue current therapy will monitor. Diabetes: Blood sugars well controlled On SS Hypothyroidism: Continue replacement will check TSH in AM Anemia of chronic disease: anemia of chronic disease on epogen. AFIB: Is currently on Heparin BID GI and DVT prophylaxis Labs in AM. 07/20/17 Left BKA: POD # 3. DREW wrap on and pain well controlled. Wound culture positive on vancomycin and flagyl. Surgery planned for tomorrow LKA ESRD: nephrology managing. UTI: MDR UTI on cefepime per ID HTN: continue Diltazem B/P 125/69 PRN clonidine Diabetes: Blood sugars well controlled over night with range between 104-138 On SS. Patient is very unhappy about carb restriction. BS are very good will increase the carb to 2200 ADA per day. Hypothyroidism: Continue replacement will TSH WNL Anemia of chronic disease: anemia of chronic disease on epogen. HGB today at9.9 AFIB: Is currently on Heparin BID GI and DVT prophylaxis Labs in AM. 07/21/17 Left BKA: POD # 4. DREW wrap on and pain well controlled. Wound culture positive on vancomycin and flagyl. Surgery planned for today left AKA ESRD: nephrology managing. UTI: MDR UTI on cefepime per ID HTN: continue Diltazem B/P 125/69 PRN clonidine Diabetes: Blood sugars well controlled over night. On SS. Patient is very unhappy about carb restriction. BS are very good will increase the carb to 2200 ADA per day. Hypothyroidism: Continue replacement will TSH WNL Anemia of chronic disease: anemia of chronic disease on epogen. HGB stable. AFIB: Is currently on Heparin BID 07/22/17 Left AKA: POD # 1. DREW wrap on and complaining of increased pain Dilaudid PRN for discomfort. On vancomycin with dialysis and flagyl. ID following. WBC elevated at 17.2 ESRD: nephrology managing. Dialysis MWF UTI: MDR UTI on cefepime per ID HTN: continue Diltazem and PRN clonidine elevated this AM with increased pain. Diabetes: Blood sugars well controlled over night. On SS. Hypothyroidism: Continue replacement. TSH WNL Anemia of chronic disease: anemia of chronic disease on epogen. HGB stable 9.9 AFIB: Is currently on Heparin BID will restart warfarin today and bridge with heparin. BMP pending this AM. Labs in AM 07/26/17 Left AKA: staple incision intact. ESRD: nephrology managing. Dialysis T//Sat UTI: MDR UTI on cefepime per ID HTN: continue Diltazem and PRN clonidine Diabetes: Blood sugars well controlled over night. On SS. Hypothyroidism: Continue replacement. TSH WNL Anemia of chronic disease: anemia of chronic disease on epogen. HGB stable 9.6 AFIB: Is currently on Heparin BID and warfarin today and bridge with heparin. \ Plan for discharge to [facility] rehab tomorrow will need antibiotic recommendations per ID. I and the STACK YIELD ENGINEER have both examined this patient and reviewed this note and I agree with these findings and plan of care. Antoni Bird DO Problem Qualifiers (1) Sepsis: Qualified Codes: A41.9 - Sepsis, unspecified organism Cherie Loyd STACK YIELD ENGINEER Jul 25, 2017 14:13
[2017-07-25] MEDS: WARFARIN SOD 2.5 MG TAB PO SCH (15:22)
[2017-07-25 16:00] VITALS: BP 136/80; PULSE 103; RESP 16; TEMP 97.8; O2SAT 98
--- NOTE | 2017-07-25 16:40 | HHI.NPPN ---
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 Patient also has a history of hypertension, atrial fibrillation, peripheral vascular disease, CHF status post right AKA a few months ago now presenting with gangrene of the left foot and is scheduled unfortunately for another amputation. Patient was also being treated prior to admission for urinary tract infection with cefepime and in the dialysis unit secondary to Morganella morganii which was sensitive to cefepime but resistant to several antibiotics including Cipro, levofloxacin, piperacillin/azobactam. Patient was seen during dialysis today. No verbal complaints. Interval History Patient had no verbal complaints. Objective Data Data Vital Signs Date Time Temp Pulse Resp B/P (MAP) Pulse Ox O2 Delivery O2 Flow Rate FiO2 07/25/17 16:00 97.8 103 16 136/80 (98) 98 07/25/17 12:00 96.9 97 16 156/92 (113) 99 07/25/17 08:40 97.5 84 20 154/85 (108) 97 07/25/17 04:00 96.6 100 19 142/89 (106) 89 07/25/17 00:00 97.0 95 19 143/83 (103) 95 07/24/17 20:00 96.8 95 19 137/80 (99) 98 -: 07/25/17 0501 07/25/17 0501 Physical Exam General Appearance: Well Developed, No Acute Distress, Comfortable Eyes Eye Exam: Pupils Equal, Pupils Reactive Pulmonary Resp Exam: Clear Bilaterally, Breath Sounds Equal, No Distress Cardiology CV Exam: Regular, Normal Sinus Rhythm Gastrointestinal/Abdomen GI Exam: Soft, Non-Tender Integumentary Skin Exam: Clear, Warm, Normal Turgor Extremeties Extremities Exam: No Edema Neurologic Neuro Exam: Alert, Awake, Speech Clear Assessment/Plan Discussed Condition With: Patient, Spouse Problem List: (1) ESRD (end stage renal disease) on dialysis ICD Codes: N18.6 - End stage renal disease; Z99.2 - Dependence on renal dialysis Plan: Patient is stable from a renal point of view. Continue TTS dialysis schedule. Infectious disease indicating antibiotics will not be required post discharge. Discharge planning per primary care physician. Permanent Comment: Patient receives hemodialysis Tuesday and Tuesday as an outpatient. Medication should be adjusted for the patient's end-stage renal disease when indicated. Avoid gadolinium. Last Edited By: Kimber Hagan on Jul 16, 2017 14: 24 (2) UTI (urinary tract infection) ICD Codes: N39.0 - Urinary tract infection, site not specified Plan: Patient was receiving cefepime and in the dialysis unit for UTI related to Morganella morganii. Multiple drug resistances but sensitive to cefepime. Treatment per infectious disease. (3) Anemia of renal disease ICD Codes: D63.1 - Anemia in chronic kidney disease Plan: Epogen for for anemia renal disease as indicated. (4) Hypertension ICD Codes: I10 - Hypertension Status: Acute (5) Diabetes ICD Codes: E11.9 - Diabetes Status: Acute (6) Hypophosphatemia ICD Codes: E83.39 - Other disorders of phosphorus metabolism Plan: Patient has a low phosphate level despite having end-stage renal disease most likely related to diminished nutritional intake in association with phosphate binders. We'll discontinue PhosLo at this time Jeremiah Hagan MD Jul 25, 2017 16:40
[2017-07-25 20:00] VITALS: BP 169/66; PULSE 93; PULSE 98; RESP 17; TEMP 96.7; O2SAT 98
[2017-07-25] MEDS: ATORVASTATIN 40 MG TAB PO SCH (20:23)
[2017-07-26] VITALS: BP 120/83; PULSE 112; RESP 20; TEMP 96.7; O2SAT 97
[2017-07-26 04:00] VITALS: BP 135/90; PULSE 102; RESP 22; TEMP 96.1; O2SAT 97
[2017-07-26] MEDS: metroNIDAZOLE 500 MG TAB PO SCH ×3 (05:49→20:00)
[2017-07-26] MEDS: LEVOTHYROXINE SODIUM 75 MCG TAB PO SCH (05:49)
[2017-07-26] MEDS: LEVOTHYROXINE SODIUM 100 MCG TAB PO SCH (05:49)
[2017-07-26] MEDS: HEPARIN SODIUM - SQ 10,000 UNITS/ML VIAL SQ SCH ×2 (05:50→18:26)
--- NOTE | 2017-07-26 07:27 | HHI.PR ---
Subjective Remarks Denies any CP or SOB. S/P Left AKA healing nicely. No complaints or problems reported Objective Vital Signs Date Time Temp Pulse Resp B/P (MAP) Pulse Ox O2 Delivery O2 Flow Rate FiO2 07/26/17 04:00 96.1 102 22 135/90 (105) 97 07/26/17 00:00 96.7 112 20 120/83 (95) 97 07/25/17 20:00 98 07/25/17 20:00 96.7 93 17 169/66 (100) 98 07/25/17 16:00 97.8 103 16 136/80 (98) 98 07/25/17 12:00 96.9 97 16 156/92 (113) 99 07/25/17 08:40 97.5 84 20 154/85 (108) 97 I/O 07/25/17 07/25/17 07/25/17 07/26/17 07/26/17 07/26/17 07:00 15:00 23:00 07:00 15:00 23:00 Intake Total 240 ml 1200 ml 240 ml Output Total 150 ml 950 ml 300 ml Balance 90 ml 250 ml -60 ml Intake Oral 240 ml 1200 ml 240 ml Output Urine Total 150 ml 950 ml 300 ml # Voids 1 # Bowel Movements 0 Result Diagram: 07/25/17 0501 07/25/17 0501 Procedures left BKA on 07/17 Objective Remarks GENERAL: alert SKIN: Warm and dry. Left below knee amputation with drew on. HEAD: Normocephalic. EYES: No scleral icterus. No injection or drainage. NECK: Supple, trachea midline. No JVD or lymphadenopathy. CARDIOVASCULAR: Regular rate and rhythm without murmurs, gallops, or rubs. RESPIRATORY: Breath sounds equal bilaterally. No accessory muscle use. GASTROINTESTINAL: Abdomen soft, non-tender, nondistended. MUSCULOSKELETAL: No cyanosis, or edema. Right AKA BACK: Nontender without obvious deformity. No CVA tenderness. Medications and IVs Current Medications Medications (Trade) Dose Ordered Sig/Libia Route Start Time Stop Time Status Last Admin (NS Flush) 2 ml UNSCH PRN IV FLUSH 07/15/17 14:30 07/22/17 16:24 (NS Flush) 2 ml BID IV FLUSH 07/15/17 21:00 07/25/17 20:23 (Tylenol) 650 mg Q4H PRN PO 07/15/17 14:30 (Zofran Inj) 4 mg Q6H PRN IVP 07/15/17 14:30 (Heparin Inj) 5,000 units Q12H SQ 07/15/17 18:00 07/26/17 05:50 (Narcan Inj) 0.4 mg UNSCH PRN IV 07/15/17 14:30 (Mary-Colace) 1 tab BID PO 07/15/17 21:00 07/22/17 20:33 (Milk Of Magnesia Liq) 30 ml Q12H PRN PO 07/15/17 14:30 (Senokot) 17.2 mg Q12H PRN PO 07/15/17 14:30 (Dulcolax Supp) 10 mg DAILY PRN RECTAL 07/15/17 14:30 (Lactulose Liq) 30 ml DAILY PRN PO 07/15/17 14:30 (Lipitor) 40 mg HS PO 07/15/17 21:00 07/25/17 20:23 (Cardizem Cd) 240 mg DAILY PO 07/16/17 09:00 07/25/17 08:30 (Lasix) 40 mg DAILY PO 07/16/17 09:00 07/25/17 08:30 (Protonix) 40 mg DAILY PO 07/16/17 09:00 07/25/17 08:30 (Synthroid) 100 mcg DAILY@0600 PO 07/16/17 06:00 07/26/17 05:49 Sodium Chloride 1,000 ml @ 0 mls/hr Q0M PRN OTHER 07/15/17 15:03 (Heparin Inj) 8,000 units UNSCH PRN IVF 07/15/17 15:15 Sodium Chloride 1,000 ml @ 200 mls/hr Q5H PRN IV 07/15/17 15:03 Sodium Chloride 1,000 ml @ 0 mls/hr Q0M PRN OTHER 07/15/17 15:03 (Mannitol Inj) 12.5 gm UNSCH PRN IV 07/15/17 15:15 (Albumin 25% Inj) 25 gm UNSCH PRN IV 07/15/17 15:15 (NS Flush) 5 ml UNSCH PRN IV FLUSH 07/15/17 15:15 (Heparin Inj) UNSCH PRN .XX 07/15/17 15:15 07/23/17 12:19 (Gentamicin (Dialysis) Inj) 20 mg UNSCH PRN IV 07/15/17 15:15 07/23/17 12:19 (Zofran Inj) 4 mg UNSCH PRN IV 07/15/17 15:15 (Tylenol) 650 mg UNSCH PRN PO 07/15/17 15:15 (Benadryl) 25 mg UNSCH PRN PO 07/15/17 15:15 07/24/17 19:34 (Nitrostat Sl) 0.4 mg UNSCH PRN SL 07/15/17 15:15 (Catapres) 0.1 mg UNSCH PRN PO 07/15/17 15:15 (Gelfoam 12 Mm/7 Mm Top) 1 foam UNSCH PRN TOP 07/15/17 15:15 (Synthroid) 75 mcg DAILY@0600 PO 07/16/17 06:00 07/26/17 05:49 (Flagyl) 500 mg Q8HR PO 07/16/17 14:30 07/26/17 05:49 (Percocet 5-325 Mg) 1 tab Q4H PRN PO 07/17/17 11:30 07/18/17 12:24 Vancomycin HCl 1000 mg/Sodium Chloride 250 ml @ 250 mls/hr WITH DIALYSIS IV 07/19/17 08:00 07/23/17 12:18 (Mag-Al Plus Susp Liq) 30 ml QID PRN PO 07/18/17 18:00 07/18/17 17:33 (Roxicodone) 5 mg Q4H PRN PO 07/21/17 16:00 (Dilaudid) 2 mg Q4H PRN PO 07/21/17 16:00 07/25/17 15:22 (Morphine Inj) 2 mg Q1H PRN IV 07/21/17 16:00 07/22/17 16:23 (Coumadin) 2.5 mg DAILY@16 PO 07/22/17 16:00 07/25/17 15:22 Assessment and Plan Problem List: (1) Anemia of renal disease ICD Codes: D63.1 - Anemia in chronic kidney disease (2) ESRD (end stage renal disease) on dialysis ICD Codes: N18.6 - End stage renal disease; Z99.2 - Dependence on renal dialysis Permanent Comment: Patient receives hemodialysis Tuesday and Tuesday as an outpatient. Medication should be adjusted for the patient's end-stage renal disease when indicated. Avoid gadolinium. Last Edited By: Kimber Hagan on Jul 16, 2017 14: 24 (3) Hypertension ICD Codes: I10 - Hypertension Status: Acute (4) UTI (urinary tract infection) ICD Codes: N39.0 - Urinary tract infection, site not specified (5) Diabetes ICD Codes: E11.9 - Diabetes Status: Acute (6) Sepsis ICD Codes: A41.9 - Sepsis, unspecified organism Status: Acute (7) PVD (peripheral vascular disease) ICD Codes: I73.9 - Peripheral vascular disease, unspecified Status: Acute Assessment and Plan 07/19/17 Left BKA: POD # 2. DREW wrap on and pain well controlled. Wound culture positive on vancomycin and flagyl ESRD: nephrology managing. dialysis today., UTI: MDR UTI on cefepime per ID HTN: continue current therapy will monitor. Diabetes: Blood sugars well controlled On SS Hypothyroidism: Continue replacement will check TSH in AM Anemia of chronic disease: anemia of chronic disease on epogen. AFIB: Is currently on Heparin BID GI and DVT prophylaxis Labs in AM. 07/20/17 Left BKA: POD # 3. DREW wrap on and pain well controlled. Wound culture positive on vancomycin and flagyl. Surgery planned for tomorrow LKA ESRD: nephrology managing. UTI: MDR UTI on cefepime per ID HTN: continue Diltazem B/P 125/69 PRN clonidine Diabetes: Blood sugars well controlled over night with range between 104-138 On SS. Patient is very unhappy about carb restriction. BS are very good will increase the carb to 2200 ADA per day. Hypothyroidism: Continue replacement will TSH WNL Anemia of chronic disease: anemia of chronic disease on epogen. HGB today at9.9 AFIB: Is currently on Heparin BID GI and DVT prophylaxis Labs in AM. 07/21/17 Left BKA: POD # 4. DREW wrap on and pain well controlled. Wound culture positive on vancomycin and flagyl. Surgery planned for today left AKA ESRD: nephrology managing. UTI: MDR UTI on cefepime per ID HTN: continue Diltazem B/P 125/69 PRN clonidine Diabetes: Blood sugars well controlled over night. On SS. Patient is very unhappy about carb restriction. BS are very good will increase the carb to 2200 ADA per day. Hypothyroidism: Continue replacement will TSH WNL Anemia of chronic disease: anemia of chronic disease on epogen. HGB stable. AFIB: Is currently on Heparin BID 07/22/17 Left AKA: POD # 1. DREW wrap on and complaining of increased pain Dilaudid PRN for discomfort. On vancomycin with dialysis and flagyl. ID following. WBC elevated at 17.2 ESRD: nephrology managing. Dialysis MWF UTI: MDR UTI on cefepime per ID HTN: continue Diltazem and PRN clonidine elevated this AM with increased pain. Diabetes: Blood sugars well controlled over night. On SS. Hypothyroidism: Continue replacement. TSH WNL Anemia of chronic disease: anemia of chronic disease on epogen. HGB stable 9.9 AFIB: Is currently on Heparin BID will restart warfarin today and bridge with heparin. BMP pending this AM. Labs in AM 07/25/17 Left AKA: staple incision intact. ESRD: nephrology managing. Dialysis T/TH/Sat UTI: MDR UTI on cefepime per ID HTN: continue Diltazem and PRN clonidine Diabetes: Blood sugars well controlled over night. On SS. Hypothyroidism: Continue replacement. TSH WNL Anemia of chronic disease: anemia of chronic disease on epogen. HGB stable 9.6 AFIB: Is currently on Heparin BID and warfarin today and bridge with heparin. \ Plan for discharge to [facility] tomorrow will need antibiotic recommendations per ID. 07/26/17 Left AKA: staple incision intact. Healing nicely cleared by vascular for discharge ESRD: nephrology managing. Dialysis T/TH/Sat UTI: MDR UTI on cefepime per ID Will discontinue today HTN: Diltazem increased with heart rate in the 100's and PRN clonidine Diabetes: Blood sugars well controlled over night. On SS. Hypothyroidism: Continue replacement. TSH WNL Anemia of chronic disease: anemia of chronic disease on epogen. HGB stable AFIB: Is currently on warfarin has been subtherapeutic results pending today and heparin BID for bridge. Plan for discharge to [facility] tomorrow Vancomycin will be discontinued after today dose. I and the SCARFER OPERATOR have both examined this patient and reviewed this note and I agree with these findings and plan of care. Antoni Bird DO Problem Qualifiers (1) Sepsis: Qualified Codes: A41.9 - Sepsis, unspecified organism Cherie Loyd Jul 26, 2017 07:27
[2017-07-26 08:00] VITALS: BP 129/82; PULSE 102; RESP 19; TEMP 96.8; O2SAT 97
[2017-07-26] MEDS: PANTOPRAZOLE SOD 40 MG DELAYED RELEASE TAB PO SCH (09:07)
[2017-07-26] MEDS: DILTIAZEM-CD 300 MG CAP ER PO SCH (09:07)
[2017-07-26] MEDS: DOCUSATE SODIUM 50 MG/SENNA 8.6 MG TAB PO SCH ×2 (09:07→20:04)
[2017-07-26] MEDS: FUROSEMIDE 40 MG TAB PO SCH (09:08)
[2017-07-26] MEDS: HYDROmorphone HCL 2 MG TAB PO PRN ×2 (09:13→20:01)
[2017-07-26 12:00] VITALS: BP 151/79; PULSE 104; RESP 18; TEMP 97.6; O2SAT 98
--- NOTE | 2017-07-26 12:55 | HHI.NPPN ---
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 Patient also has a history of hypertension, atrial fibrillation, peripheral vascular disease, CHF status post right AKA a few months ago now presenting with gangrene of the left foot and is scheduled unfortunately for another amputation. Patient was also being treated prior to admission for urinary tract infection with cefepime and in the dialysis unit secondary to Morganella morganii which was sensitive to cefepime but resistant to several antibiotics including Cipro, levofloxacin, piperacillin/azobactam. Patient was seen during dialysis today. No verbal complaints. Interval History Pending HD. Denies any complaints (Vera June) Objective Data Data Vital Signs Date Time Temp Pulse Resp B/P (MAP) Pulse Ox O2 Delivery O2 Flow Rate FiO2 07/26/17 12:00 97.6 104 18 151/79 (103) 98 07/26/17 10:42 16 07/26/17 08:00 96.8 102 19 129/82 (98) 97 07/26/17 04:00 96.1 102 22 135/90 (105) 97 07/26/17 00:00 96.7 112 20 120/83 (95) 97 07/25/17 20:00 98 07/25/17 20:00 96.7 93 17 169/66 (100) 98 07/25/17 16:00 97.8 103 16 136/80 (98) 98 (Vera June) -: 07/25/17 0501 07/25/17 0501 Imaging Last Impressions Chest X-Ray 07/16/17 0000 Signed Impressions: Service Date/Time: Sunday, July 16, 2017 19:20 - CONCLUSION: No acute disease. There is no evidence of pneumonia. Filiberto Viramontes MD Tibia/Fibula X-Ray 07/15/17 0000 Signed Impressions: Service Date/Time: Saturday, July 15, 2017 13:32 - CONCLUSION: Extensive vascular calcifications, negative for fracture. Torres Hurtado MD FACR Foot X-Ray 07/15/17 0000 Signed Impressions: Service Date/Time: Saturday, July 15, 2017 13:40 - CONCLUSION: Extensive vascular calcifications with disuse osteopenia. Torres Hurtado MD FACR Medication Review Current Medications Medications (Trade) Dose Ordered Sig/Libia Route Start Time Stop Time Status Last Admin (NS Flush) 2 ml UNSCH PRN IV FLUSH 07/15/17 14:30 07/22/17 16:24 (NS Flush) 2 ml BID IV FLUSH 07/15/17 21:00 07/25/17 20:23 (Tylenol) 650 mg Q4H PRN PO 07/15/17 14:30 (Zofran Inj) 4 mg Q6H PRN IVP 07/15/17 14:30 (Heparin Inj) 5,000 units Q12H SQ 07/15/17 18:00 07/26/17 05:50 (Narcan Inj) 0.4 mg UNSCH PRN IV 07/15/17 14:30 (Mary-Colace) 1 tab BID PO 07/15/17 21:00 07/26/17 09:07 (Milk Of Magnesia Liq) 30 ml Q12H PRN PO 07/15/17 14:30 (Senokot) 17.2 mg Q12H PRN PO 07/15/17 14:30 (Dulcolax Supp) 10 mg DAILY PRN RECTAL 07/15/17 14:30 (Lactulose Liq) 30 ml DAILY PRN PO 07/15/17 14:30 (Lipitor) 40 mg HS PO 07/15/17 21:00 07/25/17 20:23 (Lasix) 40 mg DAILY PO 07/16/17 09:00 07/26/17 09:08 (Protonix) 40 mg DAILY PO 07/16/17 09:00 07/26/17 09:07 (Synthroid) 100 mcg DAILY@0600 PO 07/16/17 06:00 07/26/17 05:49 Sodium Chloride 1,000 ml @ 0 mls/hr Q0M PRN OTHER 07/15/17 15:03 (Heparin Inj) 8,000 units UNSCH PRN IVF 07/15/17 15:15 Sodium Chloride 1,000 ml @ 200 mls/hr Q5H PRN IV 07/15/17 15:03 Sodium Chloride 1,000 ml @ 0 mls/hr Q0M PRN OTHER 07/15/17 15:03 (Mannitol Inj) 12.5 gm UNSCH PRN IV 07/15/17 15:15 (Albumin 25% Inj) 25 gm UNSCH PRN IV 07/15/17 15:15 (NS Flush) 5 ml UNSCH PRN IV FLUSH 07/15/17 15:15 (Heparin Inj) UNSCH PRN .XX 07/15/17 15:15 07/23/17 12:19 (Gentamicin (Dialysis) Inj) 20 mg UNSCH PRN IV 07/15/17 15:15 07/23/17 12:19 (Zofran Inj) 4 mg UNSCH PRN IV 07/15/17 15:15 (Tylenol) 650 mg UNSCH PRN PO 07/15/17 15:15 (Benadryl) 25 mg UNSCH PRN PO 07/15/17 15:15 07/24/17 19:34 (Nitrostat Sl) 0.4 mg UNSCH PRN SL 07/15/17 15:15 (Catapres) 0.1 mg UNSCH PRN PO 07/15/17 15:15 (Gelfoam 12 Mm/7 Mm Top) 1 foam UNSCH PRN TOP 07/15/17 15:15 (Synthroid) 75 mcg DAILY@0600 PO 07/16/17 06:00 07/26/17 05:49 (Flagyl) 500 mg Q8HR PO 07/16/17 14:30 07/26/17 05:49 (Percocet 5-325 Mg) 1 tab Q4H PRN PO 07/17/17 11:30 07/18/17 12:24 Vancomycin HCl 1000 mg/Sodium Chloride 250 ml @ 250 mls/hr WITH DIALYSIS IV 07/19/17 08:00 07/23/17 12:18 (Mag-Al Plus Susp Liq) 30 ml QID PRN PO 07/18/17 18:00 07/18/17 17:33 (Roxicodone) 5 mg Q4H PRN PO 07/21/17 16:00 (Dilaudid) 2 mg Q4H PRN PO 07/21/17 16:00 07/26/17 09:13 (Morphine Inj) 2 mg Q1H PRN IV 07/21/17 16:00 07/22/17 16:23 (Cardizem Cd) 300 mg DAILY PO 07/26/17 09:00 07/26/17 09:07 (Coumadin) 3 mg DAILY@16 PO 07/26/17 16:00 (Vera June) Physical Exam General Appearance: Well Developed, No Acute Distress, Comfortable (Vera June) Eyes Eye Exam: Pupils Equal, Pupils Reactive (eVra June) Pulmonary Resp Exam: Clear Bilaterally, Breath Sounds Equal, No Distress (Vera June) Cardiology CV Exam: Regular, Normal Sinus Rhythm (Vera June) Gastrointestinal/Abdomen GI Exam: Soft, Non-Tender (Vera June) Integumentary Skin Exam: Clear, Warm, Normal Turgor (Vera June) Extremeties Extremities Exam: No Edema (Vera June) Neurologic Neuro Exam: Alert, Awake, Speech Clear (Vera June) Assessment/Plan Discussed Condition With: Patient, Spouse Problem List: (1) ESRD (end stage renal disease) on dialysis ICD Codes: N18.6 - End stage renal disease; Z99.2 - Dependence on renal dialysis Plan: Pending HD today. OK to be discharged after HD to the [facility]. Discharge planning per primary care physician. Permanent Comment: Patient receives hemodialysis Tuesday and Tuesday as an outpatient. Medication should be adjusted for the patient's end-stage renal disease when indicated. Avoid gadolinium. Last Edited By: Kimber Hagan on Jul 16, 2017 14: 24 (2) Anemia of renal disease ICD Codes: D63.1 - Anemia in chronic kidney disease Plan: Epogen for for anemia renal disease as indicated. (3) Hypertension ICD Codes: I10 - Hypertension Status: Acute (4) Diabetes ICD Codes: E11.9 - Diabetes Status: Acute (5) Hypophosphatemia ICD Codes: E83.39 - Other disorders of phosphorus metabolism Plan: Patient has a low phosphate level despite having end-stage renal disease most likely related to diminished nutritional intake in association with phosphate binders. We'll discontinue PhosLo at this time (Vera June) Plan The exam, history, and the medical decision-making described in the above note were completed with the assistance of the PAShawn. I reviewed and agree with the findings presented. (Jeremiah Hagan MD) Vera June Jul 26, 2017 12:55 Jeremiah Hagan MD Aug 17, 2017 16:47
[2017-07-26] MEDS: VANCOMYCIN INJ 1,000 MG in SODIUM CHLOR 0.9% 250 ML INJ 250 ML IV SCH (15:27)
[2017-07-26] MEDS: GENTAMICIN SULFATE (DIALYSIS USE ONLY) 20 MG/2 ML VIAL IV PRN (15:27)
[2017-07-26] MEDS ORDERED: WARFARIN SOD 3 MG TAB PO SCH (16:00)
[2017-07-26 20:00] VITALS: BP 131/65; PULSE 90; RESP 18; TEMP 98.6; O2SAT 96
[2017-07-26] MEDS: ATORVASTATIN 40 MG TAB PO SCH (20:01)
[2017-07-26] MEDS: SODIUM CHLORIDE 0.9% FLUSH 10 ML FLUSH IV FLUSH SCH (21:00)
[2017-07-26] MEDS: diphenhydrAMINE HCL 25 MG CAP PO PRN (23:08)
[2017-07-27] VITALS: BP 130/67; PULSE 96; RESP 18; TEMP 99.4; O2SAT 97
[2017-07-27 04:00] VITALS: BP 137/80; PULSE 93; RESP 18; TEMP 96.9; O2SAT 97
[2017-07-27 04:25] LABS: HEMATOCRIT 28.5 % (39.0-51.0); MEAN CELL VOLUME 91.4 FL (80.0-100.0); MEAN CORPUSCULAR HEMOGLOBIN 30.3 PG (27.0-34.0); MEAN CORPUSCULAR HGB CONC 33.2 % (32.0-36.0); PLATELET COUNT 282 TH/MM3 (150-450); RED BLOOD COUNT 3.11 MIL/MM3 (4.50-5.90); RED CELL DISTRIBUTION WIDTH 14.5 % (11.6-17.2); REVIEW FLAG FINAL; WHITE BLOOD COUNT 8.8 TH/MM3 (4.0-11.0)
[2017-07-27 04:30] LABS: PROTHROMBIN TIME - PATIENT 22.2 SEC (9.8-11.6)
[2017-07-27 04:40] LABS: POTASSIUM 3.4 MEQ/L (3.5-5.1)
[2017-07-27] MEDS: HEPARIN SODIUM - SQ 10,000 UNITS/ML VIAL SQ SCH (06:08)
[2017-07-27] MEDS: metroNIDAZOLE 500 MG TAB PO SCH (06:08)
[2017-07-27] MEDS: LEVOTHYROXINE SODIUM 75 MCG TAB PO SCH (06:08)
[2017-07-27] MEDS: LEVOTHYROXINE SODIUM 100 MCG TAB PO SCH (06:08)
[2017-07-27 08:00] VITALS: BP 138/90; PULSE 102; RESP 18; TEMP 97.3; O2SAT 99
[2017-07-27] MEDS: FUROSEMIDE 40 MG TAB PO SCH (08:16)
[2017-07-27] MEDS: DOCUSATE SODIUM 50 MG/SENNA 8.6 MG TAB PO SCH (08:16)
[2017-07-27] MEDS: DILTIAZEM-CD 300 MG CAP ER PO SCH (08:16)
[2017-07-27] MEDS: PANTOPRAZOLE SOD 40 MG DELAYED RELEASE TAB PO SCH (08:16)
[2017-07-27] MEDS: HYDROmorphone HCL 2 MG TAB PO PRN (08:16)
[2017-07-27] MEDS: SODIUM CHLORIDE 0.9% FLUSH 10 ML FLUSH IV FLUSH SCH (08:17)
--- NOTE | 2017-07-27 09:27 | PD.VS.PN ---
Subjective POD #: 6 Procedure(s): completion L AKA Subjective/Hospital Course Pt in bed w/o complaints Incision to L AKA intact Objective Vitals/I&O Date Time Temp Pulse Resp B/P (MAP) Pulse Ox O2 Delivery O2 Flow Rate FiO2 07/27/17 08:00 97.3 102 18 138/90 (106) 99 07/27/17 04:00 96.9 93 18 137/80 (99) 97 07/27/17 00:00 99.4 96 18 130/67 (88) 97 07/26/17 20:00 98.6 90 18 131/65 (87) 96 07/26/17 12:00 97.6 104 18 151/79 (103) 98 07/26/17 10:42 16 07/27/17 07/27/17 07/27/17 07:00 15:00 23:00 Intake Total 120 ml Balance 120 ml Exam: GENERAL: A&OX3,NAD,GCS15 SKIN: Warm and dry L AKA incision w/ staple closure Pt w/o R/D/S Laboratory Laboratory Tests Test 07/27/17 03:42 White Blood Count 8.8 Red Blood Count 3.11 Hemoglobin 9.5 Hematocrit 28.5 Mean Corpuscular Volume 91.4 Mean Corpuscular Hemoglobin 30.3 Mean Corpuscular Hemoglobin Concent 33.2 Red Cell Distribution Width 14.5 Platelet Count 282 Mean Platelet Volume 8.7 Prothrombin Time 22.2 Prothromb Time International Ratio 2.0 Blood Urea Nitrogen 18 Creatinine 3.42 Random Glucose 113 Calcium Level 7.9 Sodium Level 136 Potassium Level 3.4 Chloride Level 98 Carbon Dioxide Level 31.0 Anion Gap 7 Estimat Glomerular Filtration Rate 18 Date/Time Source Procedure Growth Status 07/15/17 12:50 Blood Peripheral Aerobic Blood Culture - Final NO GROWTH IN 5 DAYS Complete 07/15/17 12:50 Blood Peripheral Anaerobic Blood Culture - Final NO GROWTH IN 5 DAYS Complete 07/15/17 12:40 Wound Foot Gram Stain - Final Complete 07/15/17 12:40 Wound Culture - Final S. Aureus Mrsa Complete Assessment and Plan Plan Plan Pt cleared from a vascular standpoint Arranged for out patient follow up Discharge Planning cleared from vascular surgery standpoint Tasneem Palma Jul 27, 2017 09:27
[2017-07-27] MEDS ORDERED: POTASSIUM CHLORIDE 10 MEQ CONTROLLED RELEASE TAB PO ONE (11:30)
[2017-07-27 12:00] VITALS: BP 133/81; PULSE 105; RESP 18; TEMP 97.3; O2SAT 99
[2017-07-27] MEDS ORDERED: NEXI40CA PO (12:25)
[2017-07-27] MEDS ORDERED: LEVO175T2 PO (12:25)
[2017-07-27] MEDS ORDERED: VITATAB56 PO (12:25)
[2017-07-27] MEDS ORDERED: CALC667C PO (12:25)
[2017-07-27] MEDS ORDERED: FURO40TA PO (12:25)
[2017-07-27] MEDS ORDERED: ATOR40TA16 PO (12:25)
[2017-07-27] MEDS ORDERED: DILT300C3 PO (12:25)
[2017-07-27] MEDS ORDERED: PAXI25TA5 PO (12:25)
[2017-07-27] MEDS ORDERED: COUM3TAB PO (12:25)
--- NOTE | 2017-07-27 12:28 | HHI.FF ---
Face to Face Verification Diagnosis: (1) ESRD (end stage renal disease) on dialysis (2) Hypertension (3) Unilateral AKA Physical Therapy Order: Evaluate and Treat Occupational Therapy Order: Evaluate and Treat Home Health Nursing Order: Medical education Wound care and dressing changes Nursing assessment with vital signs I have seen patient Frank Zendejas on 07/27/17. My clinical findings support the need for the requested home health care services because: Ltd mobility - disease progression Deconditioned w/ increased weakness Impaired cognition/judgement I certify that my clinical findings support that this patient is homebound because: Post-op weakness Need for psychosocial assistance Cherie Loyd Jul 27, 2017 12:28
--- NOTE | 2017-07-27 12:34 | HHI.DS ---
Discharge Summary Admission Date Jul 15, 2017 at 13:58 Discharge Date: Jul 27, 2017 Admitting Diagnosis gangrene left foot with osteomyelitis, DM, ESRD Procedures left BKA on 07/17 Brief History 71-year-old male that presents to the ED for evaluation of left leg. Patient was seen by accounts payable specialist as well as Dr. Tinoco today and was told to come here to get evaluated for likely amputation of the leg. Patient has a history of diabetes with gangrene to the right leg which she had to have amputated area this year. Patient denies any complaints from the right leg. He states that he's been having this wounds on his left leg for the past 3 weeks. He is being given antibiotics through his dialysis Center as well as by mouth antibiotics but he is not sure what he takes. He apparently was sent here today by Dr. Tinoco for evaluation of the wounds that he wanted vascular surgeon to be consulted for likely surgery. Patient denies any fevers chills or sweats. He does have a history of diabetes as well as ESRD having had dialysis every Tuesday and Tuesday. No allergies to medication. States having no pain. No obvious injury to the like that he can tell. CBC/BMP: 07/27/17 0342 07/27/17 0342 Significant Findings Laboratory Tests Test 07/25/17 05:01 07/27/17 03:42 Red Blood Count 3.13 MIL/MM3 (4.50-5.90) 3.11 MIL/MM3 (4.50-5.90) Hemoglobin 9.6 GM/DL (13.0-17.0) 9.5 GM/DL (13.0-17.0) Hematocrit 28.7 % (39.0-51.0) 28.5 % (39.0-51.0) Neutrophils (%) (Auto) 70.1 % (16.0-70.0) Monocytes (%) (Auto) 11.1 % (0.0-8.0) Eosinophils (%) (Auto) 6.5 % (0.0-4.0) Basophils (%) (Auto) 2.4 % (0.0-2.0) Monocytes # (Auto) 1.1 TH/MM3 (0-0.9) Eosinophils # (Auto) 0.6 TH/MM3 (0-0.4) Prothrombin Time 17.1 SEC (9.8-11.6) 22.2 SEC (9.8-11.6) Blood Urea Nitrogen 26 MG/DL (7-18) Creatinine 4.21 MG/DL (0.60-1.30) 3.42 MG/DL (0.60-1.30) Calcium Level 8.3 MG/DL (8.5-10.1) 7.9 MG/DL (8.5-10.1) Sodium Level 134 MEQ/L (136-145) Chloride Level 97 MEQ/L (98-107) Estimat Glomerular Filtration Rate 14 ML/MIN (>89) 18 ML/MIN (>89) Random Glucose 113 MG/DL (74-106) Potassium Level 3.4 MEQ/L (3.5-5.1) PE at Discharge GENERAL: alert SKIN: Warm and dry. Left below knee amputation with larry on. HEAD: Normocephalic. EYES: No scleral icterus. No injection or drainage. NECK: Supple, trachea midline. No JVD or lymphadenopathy. CARDIOVASCULAR: Regular rate and rhythm without murmurs, gallops, or rubs. RESPIRATORY: Breath sounds equal bilaterally. No accessory muscle use. GASTROINTESTINAL: Abdomen soft, non-tender, nondistended. MUSCULOSKELETAL: No cyanosis, or edema. Right AKA BACK: Nontender without obvious deformity. No CVA tenderness. Hospital Course 71-year-old male that presented to the ED for evaluation of left leg. Patient was seen by accounts payable specialist as well as Dr. Tinoco today and was told to come here to get evaluated for likely amputation of the leg. Patient has a history of diabetes with gangrene to the right leg which she had to have amputated area this year. He stated that he's been having this wounds on his left leg for the past 3 weeks. He does have a history of diabetes as well as ESRD having had dialysis every Tuesday and Tuesday. He is s/p left BKA and then AKA which he tolerated well. His antibiotics are completed. He will follow up with vascular surgery and Dr. Bird. He is discharged home with [facility]. Pt Condition on Discharge: Fair Discharge Disposition: Disch w/ Home Health Serv Discharge Instructions DIET: Follow Instructions for: Renal Failure Diet Activities you can perform: Regular-No Restrictions Follow up Referrals: PCP Follow-up @ [facility] @ V[facility] Surgery with Malick Field MD New Medications: Diltiazem CD 24 HR (Diltiazem CD 24 HR) 300 Mg Caper 300 MG PO DAILY for Blood Pressure Management for 30 Days, CAP Paroxetine ER (Paxil CR) 25 Mg Tab 25 MG PO DAILY for Anxiety for 30 Days, #30 TAB Warfarin (Coumadin) 3 Mg Tab 3 MG PO DAILY@16 for Blood Clot Prevention for 30 Days, TAB Continued Medications: Atorvastatin (Atorvastatin) 40 Mg Tab 40 MG PO HS for Cholesterol Management for 30 Days, #30 TAB (This prescription has been renewed) Calcium Acetate (Phosphate Bin (Calcium Acetate) 667 Mg Cap 667 MG PO TID for Electrolyte Replacement for 30 Days, CAP (This prescription has been renewed) Take with meals Cholecalciferol (Vitamin D-400) 400 Unit Tab 400 UNITS PO DAILY for Nutritional Supplement, #1 BOTTLE 0 Refills (This prescription has been renewed) Esomeprazole DR (Nexium) 40 Mg Capdr 40 MG PO DAILY for Heartburn Management for 30 Days, CAP 0 Refills (This prescription has been renewed) Furosemide (Furosemide) 40 Mg Tab 40 MG PO DAILY for Blood Pressure Management, #30 TAB (This prescription has been renewed) Levothyroxine (Levothyroxine) 175 Mcg Tab 175 MCG PO DAILY for Thyroid, #30 TAB 0 Refills (This prescription has been renewed) Discontinued Medications: Diltiazem CD 24 HR (Cardizem CD 24 HR) 240 Mg Caper 240 MG PO DAILY for Blood Pressure Management, #30 CAP Glipizide ER (Glipizide ER) 2.5 Mg Arleen 2.5 MG PO DAILY for Blood Sugar Management, #30 TAB 0 Refills Take with breakfast or first main meal of the day Levofloxacin (Levaquin) 250 Mg Tablet 1 TAB PO q48hrs, #20 Sitagliptin (Januvia) 50 Mg Tab 50 MG PO DAILY for Blood Sugar Management, #30 TAB 0 Refills Warfarin (Coumadin) 2.5 Mg Tab 2.5 MG PO [id number] for Prevent Blood Clot, #30 TAB 0 Refills Take 1 tablet (2.5mg) daily in the pm on Tuesday,Tuesday,Tuesday,,Tuesday and Tuesday Warfarin (Coumadin) 2 Mg Tab 2 MG PO TUESDAY for Prevent Blood Clot, #30 TAB 0 Refills [Iv Antibiotic] () Additional Information dialysis CARMENF Cherie Loyd Jul 27, 2017 12:34
[2017-07-27] MEDS ORDERED: TEMAZEPAM 15 MG CAP PO PRN (14:00)
[2017-07-27] MEDS ORDERED: ACETAMINOPHEN/HYDROcodone 325 MG/10 MG TAB PO PRN (16:00)
[2017-07-28] MEDS ORDERED: PARoxetine 25 MG CONTROLLED RELEASE TAB PO SCH (09:00)
== END 2017-07-27 15:39 | disposition home health service (06) | DRG 853 ==
LOC: NEPC 11:47 → NEDA 13:58 → N07A 16:08
PROVIDERS: ADMIT Family Medicine; ATTEND Family Medicine
PROC: 5A1D60Z (ICD-10-PCS; 2017-07-17)
PROC: 0Y6J0Z1 Detachment at Left Lower Leg, High, Open Approach (ICD-10-PCS; principal; 2017-07-17 10:37)
PROC: 0Y6D0Z3 Detachment at Left Upper Leg, Low, Open Approach (ICD-10-PCS; 2017-07-21 14:53)
DX: A41.02 Sepsis due to Methicillin resistant Staphylococcus aureus (principal); N18.6 End stage renal disease; I13.2 Hypertensive heart and chronic kidney disease with heart failure and with stage 5 chronic kidney disease, or end stage renal disease; N17.9 Acute kidney failure, unspecified; E11.52 Type 2 diabetes mellitus with diabetic peripheral angiopathy with gangrene; E11.22 Type 2 diabetes mellitus with diabetic chronic kidney disease; I48.91 Unspecified atrial fibrillation; M86.9 Osteomyelitis, unspecified; N39.0 Urinary tract infection, site not specified; E83.39 Other disorders of phosphorus metabolism; E11.69 Type 2 diabetes mellitus with other specified complication; K21.9 Gastro-esophageal reflux disease without esophagitis; I50.9 Heart failure, unspecified; D63.1 Anemia in chronic kidney disease; E03.9 Hypothyroidism, unspecified; E78.5 Hyperlipidemia, unspecified; H91.90 Unspecified hearing loss, unspecified ear; Z79.01 Long term (current) use of anticoagulants; Z89.611 Acquired absence of right leg above knee; Z91.19 Patient's noncompliance with other medical treatment and regimen; Z79.84 Long term (current) use of oral hypoglycemic drugs; Z87.891 Personal history of nicotine dependence; Z99.2 Dependence on renal dialysis
CPT/HCPCS: 71020; 73590; 73630; 80048; 80053; 80069; 80202; 81001; 82948; 83036; 83605; 83735; 84443; 85025; 85027; 85610; 85730; 86140; 86403; 87040; 87070; 87147; 87186; 87205; 88307; 88311; 90935; 93005; 96365; 96374; 96375; 99212; G0463; J0131; J0692; J1170; J1580; J1644; J2250; J2270; J2370; J2405; J2543; J3010; J3370; J7050

== ENCOUNTER → 2018-03-06 | Day surgery (SDC) | payer MEDICARE, OTHER ==
[~2018-03-06] MED LIST changes: +AMLO5TAB2 PO; +ARMO90TA PO; -ATEN100T PO; +ATOR20TA15 PO; -ATOR40TA16 PO; +BUPIVACAINE HCL PF 0.5% 30 ML VIAL ONE; -CARD240C6 PO; +CHLORHEXIDINE GLUCONATE 2 % 1 PACK (2 CLOTHS) TOPICAL PRN; -CHOL5000 PO; -CLON.1 PO; +DILT240C44 PO; +DO NOT ADM ANY ANTICOAGULANT DRUGS PRN; -GABA100C4 PO; -HEPA10003 SQ; +HEPARIN SODIUM - IV 10,000 UNITS/10 ML VIAL ONE; +HEPARIN-NS/PF INJ 500 ML ONE; +HYDR-3133 PO; +LACTATED RINGER'S 1000 ML IV PRN; -LEVA250T14 PO; -LEVO.075 PO; -LEVO.1 PO; +LIDOCAINE HCL 1% PF 5 ML SYRINGE OTHER ONE; +METOPROLOL TARTRATE 25 MG TAB PO PRN; +MORPHINE SULFATE 4 MG/ML INJ IV PUSH PRN; -NEPHRO PO; +OMEP40CA2 PO; +ONDANSETRON HCL 4 MG/2 ML VIAL IV ONE; -PANT40TA3 PO; +PHENYLEPH/NS 1000 MCG/10 ML SYR IV ONE; +POVIDONE IODINE 5% (ANTISEPSIS KIT) 4 APPLICATIONS EACH NARE PRN; +PROPOFOL 200 MG/20 ML AMP IV ONE; +PROTAMINE SULFATE 50 MG/5 ML VIAL ONE; -SITA25 PO; +SITA50 PO; +SODIUM CHLOR 0.9% 250 ML INJ 250 ML IV ONE; +SODIUM CHLORID 0.9% 500 ML IV PRN; +THROMBIN (TOPICAL) 20,000 UNIT SPRAY KIT ONE; +TYLETAB36 PO; +VANCOMYCIN HCL 1000 MG VIAL ONE; +VITATAB56 PO; -[UNRECOGNIZED DRUG - CODE] TOPICAL; +ePHEDrine/NS 25 MG/5 ML SYRINGE IV ONE
[2018-03-06 10:41] LABS: AUTOMATED NEUTROPHIL # 8.9 TH/MM3 (1.8-7.7); BASOPHIL # 0.1 TH/MM3 (0-0.2); BASOPHIL % 1.2 % (0.0-2.0); EOSINOPHIL # 0.4 TH/MM3 (0-0.4); EOSINOPHIL % 3.7 % (0.0-4.0); HEMATOCRIT 39.3 % (39.0-51.0); LYMPH % 9.6 % (9.0-44.0); LYMPHOCYTE # 1.1 TH/MM3 (1.0-4.8); MEAN CELL VOLUME 91.4 FL (80.0-100.0); MEAN CORPUSCULAR HEMOGLOBIN 30.2 PG (27.0-34.0); MEAN PLATELET VOLUME 9.3 FL (7.0-11.0); MONOCYTE # 0.8 TH/MM3 (0-0.9); NEUT % 78.5 % (16.0-70.0); PLATELET COUNT 181 TH/MM3 (150-450); WHITE BLOOD COUNT 11.4 TH/MM3 (4.0-11.0)
[2018-03-06 10:57] LABS: INTERNATIONAL NORMALIZED RATIO 1.4 RATIO; PROTHROMBIN TIME - PATIENT 13.7 SEC (9.8-11.6)
--- NOTE | 2018-03-06 11:17 | HHI.HP ---
History of Present Illness Chief Complaint: ESRD, need for HD access History of Present Illness 72 yo male with ESRD currently on HD via catheter. No autogenous options. Presents for AVG in LEFT arm. Past/Family/Social History Past Medical History ESRD PAD HTN XOL GERD hypothyroid depression Past Surgical History B AKA Social History [place] former smoker Family History [place] Home Medications Active Scripts Warfarin (Coumadin) 3 Mg Tab, 3 MG PO DAILY@16 for Blood Clot Prevention for 30 Days, TAB Prov:Cherie Loyd [facility] 07/27/17 Cholecalciferol (Vitamin D-400) 400 Unit Tab, 400 UNITS PO DAILY for Nutritional Supplement, #1 BOTTLE 0 Refills Prov:Cherie LoydP 07/27/17 Furosemide (Furosemide) 40 Mg Tab, 40 MG PO DAILY for Blood Pressure Management , #30 TAB Prov:Cherie Loyd [facility] 07/27/17 Reported Medications Acetaminophen-Codeine (Tylenol-Codeine #4) 300-60 mg Tab, 1 TAB PO Q4H Y for PAIN, TAB 0 Refills 03/02/18 Hydroxyzine HCl (Hydroxyzine HCl) 25 Mg Tab, 25 MG PO BID Y for ITCHING, TAB 0 Refills 03/02/18 Amlodipine (Amlodipine) 5 Mg Tab, 5 MG PO DAILY for Blood Pressure Management, # 30 TAB 0 Refills 03/02/18 Sitagliptin (Januvia) 50 Mg Tab, 50 MG PO DAILY for Blood Sugar Management, #30 TAB 0 Refills 03/02/18 Thyroid ([place] Thyroid) 90 Mg Tab, 90 MG PO DAILY for Thyroid Supplement, #30 TAB 0 Refills 03/02/18 Omeprazole (Omeprazole) 40 Mg Cap, 40 MG PO DAILY, #30 CAP 0 Refills 03/02/18 Diltiazem CD 24 HR (Diltiazem CD 24 HR) 240 Mg Caper, 240 MG PO DAILY, #30 CAP 0 Refills 03/02/18 Atorvastatin (Atorvastatin) 20 Mg Tab, 20 MG PO HS for Cholesterol Management, # 30 TAB 0 Refills 03/02/18 Discontinued Scripts Paroxetine ER (Paxil CR) 25 Mg Tab, 25 MG PO DAILY for Anxiety for 30 Days, #30 TAB Prov:Cherie Loyd [facility] 07/27/17 Diltiazem CD 24 HR (Diltiazem CD 24 HR) 300 Mg Caper, 300 MG PO DAILY for Blood Pressure Management for 30 Days, CAP Prov:Cherie LoydLeon [facility] 07/27/17 Calcium Acetate (Phosphate Bin (Calcium Acetate) 667 Mg Cap, 667 MG PO TID for Electrolyte Replacement for 30 Days, CAP Take with meals Prov:Cherie LoydLeon [facility] 07/27/17 Levothyroxine (Levothyroxine) 175 Mcg Tab, 175 MCG PO DAILY for Thyroid, #30 TAB 0 Refills Prov:Cherie LoydLeon [facility] 07/27/[address] (Nexium) 40 Mg Capdr, 40 MG PO DAILY for Heartburn Management for 30 Days, CAP 0 Refills Prov:Cherie LoydLeon [facility] 07/27/17 Atorvastatin (Atorvastatin) 40 Mg Tab, 40 MG PO HS for Cholesterol Management for 30 Days, #30 TAB Prov:Cherie LyodLeon [facility] 07/27/17 Coded Allergies: No Known Allergies (Unverified Allergy, Unknown, 03/06/18) Review of Systems Constitutional: DENIES: Fever, Chills Physical Exam Vitals/I&O Date Time Temp Pulse Resp B/P (MAP) Pulse Ox O2 Delivery O2 Flow Rate FiO2 03/06/18 09:57 97.6 88 15 143/77 (99) 100 Neuro: alert, moves upper extremities well HEENT: NC/AT Neck: no JVD Heart: reg rate Lungs: clear B Vascular: L UE with palpable brachial pulse Extremities: no rashes L UE Laboratory Tests Test 03/06/18 09:54 White Blood Count 11.4 Red Blood Count 4.30 Hemoglobin 13.0 Hematocrit 39.3 Mean Corpuscular Volume 91.4 Mean Corpuscular Hemoglobin 30.2 Mean Corpuscular Hemoglobin Concent 33.0 Red Cell Distribution Width 14.0 Platelet Count 181 Mean Platelet Volume 9.3 Neutrophils (%) (Auto) 78.5 Lymphocytes (%) (Auto) 9.6 Monocytes (%) (Auto) 7.0 Eosinophils (%) (Auto) 3.7 Basophils (%) (Auto) 1.2 Neutrophils # (Auto) 8.9 Lymphocytes # (Auto) 1.1 Monocytes # (Auto) 0.8 Eosinophils # (Auto) 0.4 Basophils # (Auto) 0.1 CBC Comment DIFF FINAL Differential Comment Prothrombin Time 13.7 Prothromb Time International Ratio 1.4 Caprini VTE Risk Assessment Caprini VTE Risk Assessment: No/Low Risk (score <= 1) Caprini Risk Assessment Model Point Value = 1 Point Value = 2 Point Value = 3 Point Value = 5 Age 41-60 Minor surgery BMI > 25 kg/m2 Swollen legs Varicose veins or History of unexplained or recurrent spontaneous Oral contraceptives or hormone replacement Sepsis (< 1 month) Serious lung disease, including pneumonia (< 1 month) Abnormal pulmonary function Acute myocardial infarction Congestive heart failure (< 1 month) History of inflammatory bowel disease Medical patient at bed rest Age 61-74 Arthroscopic surgery Major open surgery (> 45 min) Laparoscopic surgery (> 45 min) Malignancy Confined to bed (> 72 hours) Immobilizing plaster cast Central venous access Age >= 75 History of VTE Family history of VTE Factor V Leiden Prothrombin [id number] Lupus anticoagulant Anticardiolipin antibodies Elevated serum homocysteine Heparin-induced thrombocytopenia Other congenital or acquired thrombophilia Stroke (< 1 month) Elective arthroplasty Hip, pelvis, or leg fracture Acute spinal cord injury (< 1 month) Prophylaxis Regimen Total Risk Factor Score Risk Level Prophylaxis Regimen 0-1 Low Early ambulation 2 Moderate Order ONE of the following: *Sequential Compression Device (SCD) *Heparin 5000 units SQ BID 3-4 Higher Order ONE of the following medications: *Heparin 5000 units SQ TID *Enoxaparin/Lovenox 40 mg SQ daily (WT < 150 kg, CrCl > 30 mL/min) *Enoxaparin/Lovenox 30 mg SQ daily (WT < 150 kg, CrCl > 10-29 mL/min) *Enoxaparin/Lovenox 30 mg SQ BID (WT < 150 kg, CrCl > 30 mL/min) AND/OR *Sequential Compression Device (SCD) 5 or more Highest Order ONE of the following medications: *Heparin 5000 units SQ TID (Preferred with Epidurals) *Enoxaparin/Lovenox 40 mg SQ daily (WT < 150 kg, CrCl > 30 mL/min) *Enoxaparin/Lovenox 30 mg SQ daily (WT < 150 kg, CrCl > 10-29 mL/min) *Enoxaparin/Lovenox 30 mg SQ BID (WT < 150 kg, CrCl > 30 mL/min) AND *Sequential Compression Device (SCD) Assessment and Plan Plan LEFT upper extremity AVF with prosthetic Discharge Planning Operative site marked. To OR. [phone] Malick Field MD Mar 06, 2018 11:17
[2018-03-06 12:15] LABS: BICARBONATE 23.5 MEQ/L (21.0-32.0); CALCIUM 9.2 MG/DL (8.5-10.1); CREATININE 5.14 MG/DL (0.60-1.30)
--- NOTE | 2018-03-06 13:22 | HHI.PR ---
cc: Malick Field MD Immediate Post Op Note Procedure Date: Mar 06, 2018 Pre Op Diagnosis: ESRD, need for HD access Post Op Diagnosis: ESRD, need for HD Access Surgeon: Malick Field Ethernet Network Architect(s): Malick Randhawa Procedure: LEFT brach-ax AVG with 6mm PTFE Findings: 4mm artery, 6mm vein Additional Information: good thrill + Doppler signal in wrist at end of case Complications: none Specimen(s) removed: none Estimated blood loss: 10mL Anesthesia: LMA Drains: None Fluids: 400mL IVF Patient to: PACU Patient Condition: Good Implant/Devices: SEE IMPLANT LOG (if applicable) Date/Time of Procedure: SEE SURGICAL CARE RECORD Malick Field MD Mar 06, 2018 13:22
--- NOTE | 2018-03-06 14:16 | MP ---
cc: Malick Field MD DATE OF OPERATION: 03/06/2018 PREOPERATIVE DIAGNOSIS: End-stage renal disease, in need of dialysis access. POSTOPERATIVE DIAGNOSIS: End-stage renal disease, in need of dialysis access. PROCEDURE PERFORMED: Left brachial artery axillary vein arteriovenous graft with a 6 mm PTFE. ATTENDING SURGEON: Malick Field MD GLASS INSTALLER SURGEON: Malick Randhawa ANESTHESIA: General. INDICATION: Mr. Zendejas is a 72-year-old gentleman with peripheral vascular disease and end-stage renal disease. He needs dialysis access and has no autogenous access options. He is taken to the operating room for access creation in the left arm. DESCRIPTION OF PROCEDURE: Informed consent was obtained from the patient. He was taken to the operating room and placed supine on the operating room table. An appropriate timeout was taken to ensure the patient's identity, operative site, and planned procedure. The administration of a gram of vancomycin was initiated prior to skin incision and will be discontinued after a single preoperative dose. Vancomycin was chosen because of the patient's end-stage renal disease. Everyone in the room agreed with timeout and we proceeded. His left arm was prepped and draped. An incision was made along the antecubital in a longitudinal fashion and carried down through subcutaneous tissue with electrocautery. The brachial artery was identified and dissected free. A transverse incision was made in the axilla, carried down to subcutaneous tissue and the axillary vein was identified. A tunnel was then created between these two and a 6 mm PTFE was passed through the tunnel, taking caution not to twist it. The patient was systemically heparinized with 3000 units of IV heparin. Proximal and distal control of the brachial artery was obtained with profunda clamps and a longitudinal arteriotomy was made with an 11 blade, extended with Tomas scissors. The graft was spatulated and sewn end-to-side with running 5-0 Prolene suture. At the completion it was flushed and noted to be hemostatic. The Nazario soft jaw was placed in the graft. Proximal and distal control of the axillary vein were obtained with profunda clamps and a longitudinal arteriotomy was made with an 11 blade, extended with [place] scissors. The graft was cut to appropriate length, spatulated and sewn end-to-side to the axillary vein with running 5-0 Prolene suture. At the completion it was flushed and noted to be hemostatic. There was a nice thrill in the fistula and Doppler signal in the wrist. Heparin was reversed with protamine. Wounds were infiltrated with Marcaine and closed with 2-0 Polysorb, 3-0 Polysorb and 4-0 Monocryl. The sponge and needle counts were correct at the end of the case. I was present and scrubbed for the entire procedure. MD DEBBIE Luna/TL/rr , 01:26 PM , 01:57 PM MTDDotty
[2018-03-06 14:45] VITALS: BP 126/70; PULSE 94; RESP 20; TEMP 97.4; O2SAT 99
== END | disposition home or self-care (01) ==
LOC: HCVO 08:56
PROVIDERS: ATTEND Surgery
DX: N18.6 End stage renal disease (principal); I12.0 Hypertensive chronic kidney disease with stage 5 chronic kidney disease or end stage renal disease; I73.9 Peripheral vascular disease, unspecified; K21.9 Gastro-esophageal reflux disease without esophagitis; E03.9 Hypothyroidism, unspecified; F32.9 Major depressive disorder, single episode, unspecified; Z87.891 Personal history of nicotine dependence; Z79.01 Long term (current) use of anticoagulants; Z79.899 Other long term (current) drug therapy
CPT/HCPCS: 01844; 36821; 80048; 85025; 85610; 86850; 86900; 86901; C1768; J1644; J2370; J2405; J2720; J3010; J3370; J7040; J7050

== ENCOUNTER 2018-10-18 10:34 | Inpatient (IN) ==
[2018-10-18 11:13] LABS: Baso # (Auto) 0.1 th/mm3 (0.0-0.2); Baso % (Auto) 0.8 % (0.0-2.0); Eos # (Auto) 0.2 th/mm3 (0.0-0.4); Eos % (Auto) 2.7 % (0.0-4.0); Hematocrit 22.1 % (39.0-51.0); Hemoglobin 7.4 gm/dL (13.0-17.0); Lymph # (Auto) 0.6 th/mm3 (1.0-4.8); Lymph % (Auto) 8.8 % (9.0-44.0); Mean Corpuscular HGB Conc 33.3 % (32.0-36.0); Mean Corpuscular Hemoglobin 34.7 pg (27.0-34.0); Mean Corpuscular Volume 104.5 fL (80.0-100.0); Mean Platelet Volume 8.4 fL (7.0-11.0); Mono # (Auto) 0.9 th/mm3 (0.0-0.9); Neut # (Auto) 5.6 th/mm3 (1.8-7.7); Neut % (Auto) 75.7 % (16.0-70.0); Platelet Count 210 th/mm3 (150-450); Red Blood Count 2.12 mil/mm3 (4.50-5.90); Red Cell Distribution Width 16.8 % (11.6-17.2); White Blood Count 7.4 th/mm3 (4.0-11.0)
[2018-10-18 11:32] LABS: Albumin 2.3 g/dL (3.4-5.0); Anion Gap 8 meq/L (5-15); Aspartate Aminotransferase 16 U/L (15-37); Blood Urea Nitrogen 18 mg/dL (7-18); Calcium 7.9 mg/dL (8.5-10.1); Carbon Dioxide 24.6 meq/L (21.0-32.0); Chloride 100 meq/L (98-107); Glomerular Filtration Rate 14 mL/min (>89); Glucose,Random 135 mg/dL (74-106); Potassium 4.4 meq/L (3.5-5.1); Sodium 133 meq/L (136-145)
[2018-10-18 11:34] LABS: Alkaline Phosphatase 133 U/L (45-117); Total Protein 6.5 g/dL (6.4-8.2)
[2018-10-18 12:02] LABS: Activated Partial Thrombo Time 83.3 sec (23.4-31.7)
[2018-10-18 12:12] LABS: INR 6.9 Ratio
--- NOTE | 2018-10-18 13:27 | ED ---
HPI General Chief complaint: Medical Clearance Stated complaint: abnl labs Time Seen by Provider: 10/18/18 10:46 Source: patient Mode of arrival: ambulatory Limitations: no limitations History of Present Illness HPI narrative: 73 yo M ESRD S//, afib on coumadin, dm, hld, htn, hypothyroid , GERD, bilateral BKA, arrives after outpt INR was critically elevated. Pt reports 2 weeks of hematuria. Pt was called 2 days prior for elevated INR and held coumadin last night. no bloody stool that he has seen. no cp/sob. pt follows with Dr Marko Hagan of nephrology and Dr Bird. Related Data Home Medications Medication Instructions Recorded Confirmed amlodipine 10 mg PO DAILY 10/18/18 10/18/18 atorvastatin 20 mg PO DAILY 10/18/18 10/18/18 diltiazem HCl 240 mg PO DAILY 10/18/18 10/18/18 esomeprazole magnesium 20 mg PO DAILY 10/18/18 10/18/18 furosemide 40 mg PO DAILY 10/18/18 10/18/18 levothyroxine [Synthroid] 137 mcg PO DAILY 10/18/18 10/18/18 sitagliptin [Januvia] 50 mg PO DAILY 10/18/18 10/18/18 warfarin [Jantoven] 2.5 mg PO DAILY 10/18/18 10/18/18 Allergies Allergy/AdvReac Type Severity Reaction Status Date / Time No Known Allergies Allergy Verified 10/18/18 10:48 Review of Systems ROS: all other systems reviewed are negative [facility] Medical History Medical History Atrial fibrillation (Acute) Diabetes (Acute) GERD (gastroesophageal reflux disease) (Acute) High triglycerides (Acute) Hypertension (Acute) Hypothyroidism (Acute) Presence of arterial-venous shunt (for dialysis) (Acute) Renal failure (Acute) Surgical History Surgical History S/P bilateral below knee amputation (Acute) Social History Social History Substance History: No History of Abuse Second Hand Smoke Exposure: Yes Smoking Status: Current every day smoker Tobacco Type: Cigarettes How Often Do You Have a Drink Containing Alcohol: 2 to 3 times a week Recent Travel in [facility] within the Last 8 Weeks: No Recent Out of Country Travel within the Last 8 Weeks: No Immunization History Tetanus Immunization: Unsure Exam Narrative Exam Narrative: GENERAL: 73 yo M, WNWD, NAD SKIN: Focused skin assessment warm/dry. Stage 2 ulcer sacrum. HEAD: Atraumatic. Normocephalic. EYES: Pupils equal and round. No scleral icterus. No injection or drainage. ENT: No nasal bleeding or discharge. Mucous membranes pink and moist. NECK: Trachea midline. No JVD. CARDIOVASCULAR: Regular rate and rhythm. No murmur appreciated. RESPIRATORY: No accessory muscle use. Clear to auscultation. Breath sounds equal bilaterally. GASTROINTESTINAL: Abdomen soft, non-tender, nondistended. Hepatic and splenic margins not palpable. MUSCULOSKELETAL: Bilateral BKA. LUE av fistula. No gross deformity otherwise. NEUROLOGICAL: Awake and alert. No obvious cranial nerve deficits. Motor grossly within normal limits. Normal speech. PSYCHIATRIC: Appropriate mood and affect; insight and judgment normal. Course Initial Documented Vital Signs Temperature 98.0 F 10/18/18 10:39 Pulse Rate 87 10/18/18 10:39 Respiratory Rate 18 10/18/18 10:39 Blood Pressure 116/56 L 10/18/18 10:39 Pulse Oximetry 97 10/18/18 10:39 Last Documented Vital Signs Temperature 98.0 F 10/18/18 10:39 Pulse Rate 87 10/18/18 11:13 Respiratory Rate 18 10/18/18 10:46 Blood Pressure 116/56 L 10/18/18 10:46 Pulse Oximetry 97 10/18/18 10:46 Critical Care Time Critical Care Time: Yes Total Critical Care Time: 35 Attestation: Aggregate critical care time was 40 minutes. Time to perform other separately billable procedures was not included in the critical care time. My time did not include minutes spent treating any other patients simultaneously or on activities that did not directly contribute to the patient's treatment. The services I provided to this patient were to treat and/or prevent clinically significant deterioration that could result in: hemorrhagic shock I provided critical care services requiring my management, as noted below: Chart data review, documentation time, medication orders and management, vital sign assessments/reviewing monitor data, ordering and reviewing lab tests, ordering and interpreting/reviewing x-rays and diagnostic studies, care of the patient and discussion of the patient with the admitting physicians. Medical Decision Making MDM Narrative Medical decision making narrative: INR is 6.9 Hgb is 7.4 with baseline of 9.5 approx with most recent actually at 13 from february Pt has stage II sacral ulcers unknown to him. RN raises concern for poor at home care. d/w Dr Hagan's HERNÁN d/w Dr Bird's HERNÁN - Zahida admission for INR correction and PRBC transfusion in setting of ESRD possible DFC or case management due to sacral wounds with possible poor home care Medical Screen Exam Complete: Yes Emergency Medical Condition: Yes Differential Diagnosis Differential Diagnosis: anemia, supratherapeutic INR, metabolic abnormality, infection Lab Data Result diagrams: 10/18/18 10:58 10/18/18 10:58 Lab Results 10/18/18 10/18/18 10/18/18 Range/Units 10:58 10:58 11:39 WBC 7.4 (4.0-11.0) th/mm3 RBC 2.12 L (4.50-5.90) mil/mm3 Hgb 7.4 L (13.0-17.0) gm/dL Hct 22.1 L (39.0-51.0) % MCV 104.5 H (80.0-100.0) fL MCH 34.7 H (27.0-34.0) pg MCHC 33.3 (32.0-36.0) % RDW 16.8 (11.6-17.2) % Plt Count 210 (150-450) th/mm3 MPV 8.4 (7.0-11.0) fL Neut % (Auto) 75.7 H (16.0-70.0) % Lymph % (Auto) 8.8 L (9.0-44.0) % [place] % (Auto) 12.0 H (0.0-8.0) % Eos % (Auto) 2.7 (0.0-4.0) % Baso % (Auto) 0.8 (0.0-2.0) % Neut # (Auto) 5.6 (1.8-7.7) th/mm3 Lymph # (Auto) 0.6 L (1.0-4.8) th/mm3 [place] # (Auto) 0.9 (0.0-0.9) th/mm3 Eos # (Auto) 0.2 (0.0-0.4) th/mm3 Baso # (Auto) 0.1 (0.0-0.2) th/mm3 WBC Differential . Differential Comment Auto diff final PT 69.0 H (9.8-11.6) sec INR 6.9 H* Ratio APTT 83.3 H (23.4-31.7) sec Sodium 133 L (136-145) meq/L Potassium 4.4 (3.5-5.1) meq/L Chloride 100 (98-107) meq/L Carbon Dioxide 24.6 (21.0-32.0) meq/L Anion Gap 8 (5-15) meq/L BUN 18 (7-18) mg/dL Creatinine 4.20 H (0.60-1.30) mg/dL Estimated GFR 14 L (>89) mL/min Random Glucose 135 H (74-106) mg/dL Calcium 7.9 L (8.5-10.1) mg/dL Total Bilirubin 0.4 (0.2-1.0) mg/dL AST 16 (15-37) U/L ALT Less than 6 L (12-78) U/L Alkaline Phosphatase 133 H (45-117) U/L Total Protein 6.5 (6.4-8.2) g/dL Albumin 2.3 L (3.4-5.0) g/dL Discharge Plan Discharge Disposition Patient Disposition: ED Admit(ED Internal Use Only) Discharge Order Discharge Orders: ED Use Only Admit Order (Routine); Ordered 10/18/18 Ordered By: Aleix Stanton Physicians Team ED Provider: Alexi Stanton Primary Care Provider: Antoni Bird Rxs /Orders / Referrals /Forms Prescriptions: No Action furosemide 40 mg Tablet 40 mg PO DAILY RF: 0 levothyroxine [Synthroid] 137 mcg Tablet 137 mcg PO DAILY RF: 0 atorvastatin 20 mg Tablet 20 mg PO DAILY RF: 0 warfarin [Jantoven] 2.5 mg Tablet 2.5 mg PO DAILY RF: 0 amlodipine 10 mg Tablet 10 mg PO DAILY RF: 0 esomeprazole magnesium 20 mg Capsule,Delayed Release(Dr/Ec) 20 mg PO DAILY RF: 0 diltiazem HCl 240 mg Tablet Extended Release 24 Hr 240 mg PO DAILY RF: 0 sitagliptin [Januvia] 50 mg Tablet 50 mg PO DAILY RF: 0 Discharge Interventions Interventions: Vital Signs Last Done: 10/18/18 10:46 Status ED Status: With Doctor
[2018-10-18] MEDS ORDERED: Sodium Chlor 0.9% Inj 250 ML IV.SIG SCH (14:00)
[2018-10-18 18:38] VITALS: RESP 18
--- NOTE | 2018-10-18 20:48 | MB ---
cc: Pablo Cramer MD DATE: 10/18/2018 NOTE FOR CHART: I went to see Mr. Zendejas in hematology consultation, as Dr. Bird has kindly asked me to see him for possible Coumadin overdose and further recommendations about his anticoagulation. By review of records, Mr. Zendejas is a 73-year-old gentleman with atrial fibrillation on Coumadin, admitted to the hospital for PT/INR of 6.9 and hemoglobin of 7.2. I was told by the RN before going into the room that he apparently had an injury to the right forearm and was dressed in the emergency room with no active exsanguination. He apparently did not have blood in his stool, but he also did not have a bowel movement for the last 2 days, according to the RN who was taking care of him. When I went to the room and introduced myself as a gis developer the patient was uncooperative, unpleasant, and frankly belligerent and yelling at me who I was (despite introducing myself to him by name and as a gis developer thrice) that he did not know me, and repeatedly telling me that he does not want to see me. This was despite my introducing myself as a gis developer who was asked to see him in consultation. He asked me multiple times who I was, despite introducing myself. In the end, he told me that he does not want to see me. At this point, I have advised him that I will not be his physician and called Dr. Bird his primary physician, who was very kind in acknowledging my visit to see the patient and was apologetic for patient 's uncooperativeness. We discussed his further options of therapy, including possible use of a small dose of vitamin K for reversal of PT/INR as needed, especially if he bleeds actively and drops his hemoglobin. Otherwise, he could be a candidate for alternative anticoagulation therapies including Eliquis or Xarelto as out patient to prevent supratherapeutic INR with Coumadin and risking bleeding in the future in this gentleman, who apparently is quite uncooperative with management. At this point, I have advised that I will not be able to do a formal consultation, and he appreciated my efforts very much. There will be no charges for this visit, as the consultation was not completed. Pablo MD BARBY Alejandre/patrick , 06:28 PM , 06:36 PM NILES
[2018-10-19] MEDS ORDERED: Levothyroxine 112 MCG Tablet PO SCH (06:00)
[2018-10-19 06:39] LABS: Hematocrit 23.8 % (39.0-51.0); Mean Corpuscular HGB Conc 33.8 % (32.0-36.0); Mean Corpuscular Hemoglobin 34.1 pg (27.0-34.0); Mean Corpuscular Volume 100.9 fL (80.0-100.0); Mean Platelet Volume 8.5 fL (7.0-11.0); Platelet Count 202 th/mm3 (150-450); Red Blood Count 2.36 mil/mm3 (4.50-5.90); Red Cell Distribution Width 17.3 % (11.6-17.2); White Blood Count 6.9 th/mm3 (4.0-11.0)
[2018-10-19 06:41] LABS: INR 4.7 Ratio; Prothrombin Time 47.5 sec (9.8-11.6)
[2018-10-19] MEDS ORDERED: Sodium Chlor 0.9% Inj 250 ML IV.SIG SCH (08:00)
[2018-10-19] MEDS ORDERED: Heparin 10,000 UNITS/10 ML Vial (for IV use) OTHER PRN (08:52)
[2018-10-19] MEDS ORDERED: Acetaminophen 325 MG Tablet PO PRN (08:52)
[2018-10-19] MEDS ORDERED: Sod Chloride 0.9% Inj 1,000 ML OTHER PRN ×2 (08:52)
[2018-10-19] MEDS ORDERED: Gelatin 12 MM/7 MM Topical Foam TOPICAL PRN (08:52)
[2018-10-19] MEDS ORDERED: Sod Chloride 0.9% Inj 1,000 ML IV.CONT PRN (08:52)
[2018-10-19] MEDS ORDERED: Albumin Human 25% Inj 100 ML IV.SIG PRN (08:52)
[2018-10-19] MEDS ORDERED: dilTIAZem CD 240 MG Capsule PO SCH (09:00)
[2018-10-19] MEDS ORDERED: Furosemide 40 MG Tablet PO SCH (09:00)
[2018-10-19] MEDS ORDERED: Pantoprazole Sodium 20 MG DR Tablet PO SCH (09:00)
[2018-10-19] MEDS ORDERED: LEVOTHYROXINE 137 MCG PO SCH ×2 (09:00)
[2018-10-19] MEDS ORDERED: amLODIPine 10 MG Tablet PO SCH (09:00)
--- NOTE | 2018-10-19 10:58 | P.HPFP ---
History of Present Illness Service: family medicine Primary Care Physician: Antoni Bird DO History of Present Illness: 73 yo M ESRD S//, afib on coumadin, dm, hld, htn, hypothyroid, GERD, bilateral BKA, arrives after outpt INR was critically elevated. Pt reports 2 weeks of hematuria. Pt was called 2 days prior for elevated INR and held coumadin last night. no bloody stool that he has seen. no cp/sob. pt follows with Dr Marko Hagan of nephrology and Dr Bird. - Diagnosis (1) Hypercoagulable state (2) ESRD (end stage renal disease) (3) Anemia Inpatient Certification: I certify that the inpatient services were ordered in accordance with Medicare regulations governing the order. This includes certification that hospital inpatient services are reasonable and necessary and in the case of services not specified as inpatient-only under 42 CFR 419.22(n), that they are appropriately provided as inpatient services in accordance to with the 2-midnight benchmark under 43 CFR 412.3(e) Estimated Total Length of Stay (Days): 3 Plans for Post Hospital Care: Home [facility] - History History Provided By: Patient - Medical History Medical History: Medical History (Last Updated 10/18/18 @ 10:46 by Kendall Billy) Atrial fibrillation Diabetes GERD (gastroesophageal reflux disease) High triglycerides Hypertension Hypothyroidism Presence of arterial-venous shunt (for dialysis) Renal failure - Surgical History Surgical History: Surgical History (Last Updated 10/18/18 @ 10:44 by Kendall Billy) S/P bilateral below knee amputation - Tobacco History Second Hand Smoke Exposure: No Tobacco Use In Past 30 Days: Yes Smoking Status: Heavy tobacco smoker Tobacco Type: Cigarettes - Alcohol History How Often Do You Have a Drink Containing Alcohol: 4 or more times a week - Substance Use History Substance History: No History of Abuse - Travel History Recent Travel in the [place] Within the Last 8 Weeks: No Recent Travel Out of the Country Within the Last 8 Weeks: No - Immunization History Tetanus Immunization: <5 Years Hx Influenza Vaccine This Season: Yes Medications and Allergies Active Medications: Active Medications Acetaminophen (Tylenol) 650 mg PO UNSCH X1 PRN PRN Reason: SEE LABEL COMMENTS Amlodipine Besylate (Norvasc) 10 mg PO DAILY [facility] Last Admin: 10/19/18 08:47 Dose: 10 mg Atorvastatin Calcium (Lipitor) 20 mg PO DAILY [facility] Last Admin: 10/19/18 08:48 Dose: 20 mg Clonidine HCl (Catapres) 0.1 mg PO UNSCH X1 PRN PRN Reason: SEE LABEL COMMENTS Diltiazem HCl (Cardizem Cd 24hr) 240 mg PO DAILY [facility] Last Admin: 10/19/18 08:47 Dose: 240 mg Diphenhydramine HCl (Benadryl) 25 mg PO UNSCH PRN PRN Reason: SEE LABEL COMMENTS Epoetin Deepak (Epogen Inj) 8,000 unit IV.PUSH UNSCH PRN PRN Reason: SEE LABEL COMMENTS Furosemide (Lasix) 40 mg PO DAILY [facility] Last Admin: 10/19/18 08:48 Dose: 40 mg Gelatin (Gelfoam 12 Mm/7 Mm Topical) 1 foam TOPICAL UNSCH PRN PRN Reason: help stop bleeding from site Gentamicin Sulfate (Gentamicin Inj) 20 mg OTHER WITH DIALYSIS PRN PRN Reason: Dwell Gentamycin Lock Heparin Sodium (Porcine) (Heparin Inj) 0 units OTHER WITH DIALYSIS PRN PRN Reason: Dwell Heparin to Fill Catheter Sodium Chloride (Ns Inj) 250 mls @ 15 mls/hr IV.SIG ONCE WIN Stop: 10/20/18 00:39 Last Admin: 10/19/18 10:46 Dose: Not Given Albumin Human (Flexbumin 25% Inj) 100 mls @ 60 mls/hr IV.SIG WITH DIALYSIS PRN PRN Reason: hypotension / volume replace Sodium Chloride (Ns Inj) 1,000 mls @ 0 mls/hr OTHER .Q0M PRN PRN Reason: for prime and rinse back Last Admin: 10/19/18 09:48 Dose: 100 mls/hr Sodium Chloride (Ns Inj) 1,000 mls @ 200 mls/hr OTHER .Q5H PRN PRN Reason: for dialyzer flush PRN Sodium Chloride (Ns Inj) 1,000 mls @ 0 mls/hr IV.CONT .Q0M PRN PRN Reason: hypotension / volume replace Levothyroxine Sodium (Synthroid) 25 mcg PO DAILY@0600 [facility] Last Admin: 10/19/18 06:19 Dose: 25 mcg Levothyroxine Sodium (Synthroid) 112 mcg PO DAILY@0600 [facility] Last Admin: 10/19/18 06:19 Dose: 112 mcg Mannitol (Mannitol Inj) 12.5 gm IV.PUSH UNSCH PRN PRN Reason: hypotension / volume replace Nitroglycerin (Nitrostat Sl) 0.4 mg SL Q5M PRN PRN Reason: CHEST PAIN Ondansetron HCl (Zofran Inj) 4 mg IV.PUSH UNSCH X1 PRN PRN Reason: WITH DIALYSIS Pantoprazole Sodium (Protonix) 20 mg PO DAILY [facility] Last Admin: 10/19/18 08:48 Dose: 20 mg Sitagliptin Phosphate (Januvia) 50 mg PO DAILY [facility] Last Admin: 10/19/18 08:48 Dose: 50 mg Sodium Chloride (Ns Flush) 2 ml IV.FLUSH PRN PRN PRN Reason: FLUSH AFTER USING IV ACCESS Sodium Chloride (Ns Flush) 5 ml IV.FLUSH UNSCH PRN PRN Reason: flush each lumen during HD Allergies Allergy/AdvReac Type Severity Reaction Status Date / Time No Known Allergies Allergy Verified 10/18/18 10:48 Home Medications Medication Instructions Recorded Confirmed Type amlodipine 10 mg PO DAILY 10/18/18 10/18/18 History atorvastatin 20 mg PO DAILY 10/18/18 10/18/18 History diltiazem HCl 240 mg PO DAILY 10/18/18 10/18/18 History esomeprazole magnesium 20 mg PO DAILY 10/18/18 10/18/18 History furosemide 40 mg PO DAILY 10/18/18 10/18/18 History levothyroxine [Synthroid] 137 mcg PO DAILY 10/18/18 10/18/18 History sitagliptin [Januvia] 50 mg PO DAILY 10/18/18 10/18/18 History warfarin [Jantoven] 2.5 mg PO DAILY 10/18/18 10/18/18 History Exam Vital signs: Vital Signs 10/18/18 11:13 10/18/18 14:41 10/18/18 17:30 Temperature 97.4 F L Pulse Rate 87 81 92 H Respiratory Rate 20 18 Blood Pressure 119/56 L 125/82 Pulse Oximetry 100 10/18/18 20:00 10/19/18 00:00 10/19/18 00:34 Temperature 97.5 F L 97.9 F 97.9 F Pulse Rate 94 H 86 86 Respiratory Rate 18 18 18 Blood Pressure 111/53 L 98/53 L 98/53 L Pulse Oximetry 93 L 97 97 10/19/18 00:58 10/19/18 04:00 10/19/18 04:09 Temperature 98.1 F 98.4 F 98.4 F Pulse Rate 100 H 90 90 Respiratory Rate 18 Blood Pressure 106/59 L 107/74 107/74 Pulse Oximetry 95 95 95 10/19/18 08:00 10/19/18 09:49 10/19/18 10:06 Temperature 98.5 F 98.1 F 98.6 F Pulse Rate 96 H 98 H 92 H Respiratory Rate 18 Blood Pressure 123/67 140/79 117/77 Pulse Oximetry 96 96 96 Intake & Output 10/18/18 10/19/18 10/19/18 18:59 06:59 18:59 Intake Total 415 / 415 250 / 250 Output Total 30 / 30 Balance 385 / 385 250 / 250 Weight 70.1 kg 67.2 kg Intake: IV 250 / 250 NS Inj 250 ML @ 15 mls/hr IV. 250 / 250 SIG ONCE WIN Rx#:[id number] Oral 0 / 0 Other 15 15 Rbc As-3 Leukoreduced Unit 15 15 [id number] Intake (Blood Product) Amt 400 / 400 0 / 0 Rbc As-3 Leukoreduced Unit 0 / 0 [id number] Rbc As-3 Leukoreduced Unit 400 / 400 [id number] Output: Urine 30 / 30 Other: # Bowel Movements 0 Weight On Admission 70.1 kg - Constitutional no acute distress - Routine HEENT Exam Eye: Present: PERRL ENT: Present: mucous membranes dry - Routine Neck Exam Present: supple - Routine Respiratory Exam Present: diminished air movement - Routine Cardiovascular Exam Present: S1, S2 - Routine Abdominal Exam Present: soft, normoactive bowel sounds - Routine Extremities Exam Present: amputation (B/L) - Routine Skin Exam Present: dry, warm - Routine Neurological Exam Present: alert, oriented X3 Results - Labs Result diagrams: 10/19/18 04:19 10/18/18 10:58 Abnormal lab results 10/18/18 10/18/18 10/18/18 Range/Units 10:58 10:58 11:39 RBC 2.12 L (4.50-5.90) mil/mm3 Hgb 7.4 L (13.0-17.0) gm/dL Hct 22.1 L (39.0-51.0) % MCV 104.5 H (80.0-100.0) fL MCH 34.7 H (27.0-34.0) pg RDW (11.6-17.2) % Neut % (Auto) 75.7 H (16.0-70.0) % Lymph % (Auto) 8.8 L (9.0-44.0) % Stanly % (Auto) 12.0 H (0.0-8.0) % Lymph # (Auto) 0.6 L (1.0-4.8) th/mm3 PT 69.0 H (9.8-11.6) sec INR 6.9 H* Ratio APTT 83.3 H (23.4-31.7) sec Sodium 133 L (136-145) meq/L Creatinine 4.20 H (0.60-1.30) mg/dL Estimated GFR 14 L (>89) mL/min Random Glucose 135 H (74-106) mg/dL Calcium 7.9 L (8.5-10.1) mg/dL ALT Less than 6 L (12-78) U/L Alkaline Phosphatase 133 H (45-117) U/L Albumin 2.3 L (3.4-5.0) g/dL MTS Gel Crossmatch 10/18/18 10/19/18 10/19/18 Range/Units 16:50 04:19 04:19 RBC 2.36 L (4.50-5.90) mil/mm3 Hgb 8.0 L (13.0-17.0) gm/dL Hct 23.8 L (39.0-51.0) % MCV 100.9 H D (80.0-100.0) fL MCH 34.1 H (27.0-34.0) pg RDW 17.3 H (11.6-17.2) % Neut % (Auto) (16.0-70.0) % Lymph % (Auto) (9.0-44.0) % Stanly % (Auto) (0.0-8.0) % Lymph # (Auto) (1.0-4.8) th/mm3 PT 47.5 H D (9.8-11.6) sec INR Ratio APTT (23.4-31.7) sec Sodium (136-145) meq/L Creatinine (0.60-1.30) mg/dL Estimated GFR (>89) mL/min Random Glucose (74-106) mg/dL Calcium (8.5-10.1) mg/dL ALT (12-78) U/L Alkaline Phosphatase (45-117) U/L Albumin (3.4-5.0) g/dL MTS Gel Crossmatch See Detail 10/19/18 Range/Units 07:55 RBC (4.50-5.90) mil/mm3 Hgb (13.0-17.0) gm/dL Hct (39.0-51.0) % MCV (80.0-100.0) fL MCH (27.0-34.0) pg RDW (11.6-17.2) % Neut % (Auto) (16.0-70.0) % Lymph % (Auto) (9.0-44.0) % Stanly % (Auto) (0.0-8.0) % Lymph # (Auto) (1.0-4.8) th/mm3 PT (9.8-11.6) sec INR Ratio APTT (23.4-31.7) sec Sodium (136-145) meq/L Creatinine (0.60-1.30) mg/dL Estimated GFR (>89) mL/min Random Glucose (74-106) mg/dL Calcium (8.5-10.1) mg/dL ALT (12-78) U/L Alkaline Phosphatase (45-117) U/L Albumin (3.4-5.0) g/dL MTS Gel Crossmatch See Detail Short CBC 10/18/18 10/19/18 Range/Units 10:58 04:19 WBC 7.4 6.9 (4.0-11.0) th/mm3 Hgb 7.4 L 8.0 L (13.0-17.0) gm/dL Hct 22.1 L 23.8 L (39.0-51.0) % Plt Count 210 202 (150-450) th/mm3 BMP 10/18/18 10:58 Sodium 133 L Potassium 4.4 Chloride 100 Carbon Dioxide 24.6 BUN 18 Creatinine 4.20 H Calcium 7.9 L Liver Function 10/18/18 Range/Units 10:58 Total Bilirubin 0.4 (0.2-1.0) mg/dL AST 16 (15-37) U/L ALT Less than 6 L (12-78) U/L Alkaline Phosphatase 133 H (45-117) U/L Albumin 2.3 L (3.4-5.0) g/dL Caprini VTE Risk Assessment Caprini VTE Risk Assessment: Moderate/High Risk (score >= 2) (coumadin,) Caprini Risk Assessment Model: Point Value = 1 Point Value = 2 Point Value = 3 Point Value = 5 Age 41-60 Minor surgery BMI > 25 kg/m2 Swollen legs Varicose veins or History of unexplained or recurrent spontaneous Oral contraceptives or hormone replacement Sepsis (< 1 month) Serious lung disease, including pneumonia (< 1 month) Abnormal pulmonary function Acute myocardial infarction Congestive heart failure (< 1 month) History of inflammatory bowel disease Medical patient at bed rest Age 61-74 Arthroscopic surgery Major open surgery (> 45 min) Laparoscopic surgery (> 45 min) Malignancy Confined to bed (> 72 hours) Immobilizing plaster cast Central venous access Age >= 75 History of VTE Family history of VTE Factor V Leiden Prothrombin [id number] Lupus anticoagulant Anticardiolipin antibodies Elevated serum homocysteine Heparin-induced thrombocytopenia Other congenital or acquired thrombophilia Stroke (< 1 month) Elective arthroplasty Hip, pelvis, or leg fracture Acute spinal cord injury (< 1 month) Prophylaxis Regimen: Total Risk Factor Score Risk Level Prophylaxis Regimen 0-1 Low Early ambulation 2 Moderate Order ONE of the following: *Sequential Compression Device (SCD) *Heparin 5000 units SQ BID 3-4 Higher Order ONE of the following medications: *Heparin 5000 units SQ TID *Enoxaparin/Lovenox 40 mg SQ daily (WT < 150 kg, CrCl > 30 mL/min) *Enoxaparin/Lovenox 30 mg SQ daily (WT < 150 kg, CrCl > 10-29 mL/min) *Enoxaparin/Lovenox 30 mg SQ BID (WT < 150 kg, CrCl > 30 mL/min) AND/OR *Sequential Compression Device (SCD) 5 or more Highest Order ONE of the following medications: *Heparin 5000 units SQ TID (Preferred with Epidurals) *Enoxaparin/Lovenox 40 mg SQ daily (WT < 150 kg, CrCl > 30 mL/min) *Enoxaparin/Lovenox 30 mg SQ daily (WT < 150 kg, CrCl > 10-29 mL/min) *Enoxaparin/Lovenox 30 mg SQ BID (WT < 150 kg, CrCl > 30 mL/min) AND *Sequential Compression Device (SCD) On Coumadin INR 6.8, currently on hold Assessment and Plan - Assessment (1) Hypercoagulable state Code(s): D68.59 - Other primary thrombophilia Status: Acute Plan: Coumadin on hold, Hematology consulted for rec's of using DOAC r/t non compliance w/ coumadin (2) ESRD (end stage renal disease) Code(s): N18.6 - End stage renal disease Status: Acute Plan: HD, Tues/ Th/ Sat Dr Hagan (3) Anemia Code(s): D64.9 - Anemia, unspecified Status: Acute Plan: transfuse, monitor HGB - Assessment and Plan Dialysis today, DC after H&P: Quality - VTE Deep Vein Thrombosis/Pulmonary Embolism Present on Admission: No
[2018-10-19 17:31] VITALS: PULSE 92
--- NOTE | 2018-10-19 18:00 | P.CONNP ---
History of Present Illness Reason for Consult: Hemodialysis Primary Care Provider: Antoni Bird DO Chief Complaint: End-stage renal disease History of Present Illness: 73-year-old male with a history of end-stage renal diabetic nephropathy also has a history of hypertension, atrial fibrillation, CHF and COPD as well as unfortunately noncompliance with dialysis despite repeated counseling regarding potential consequences of noncompliance including premature and increased morbidity and mortality. Patient was admitted to this institution with a history of hematuria apparently on Coumadin for atrial fibrillation and his INR on presentation was noted to be 6.9. Hematology consultation was placed but unfortunately could not be completed secondary to patient not cooperating but they were recommendations for modification of his anticoagulation regimen. Hemodialysis was arranged for the patient in house but apparently signed off the machine after about 1-1/2 hours of treatment. Presently with no verbal complaints. Review of Systems All other systems reviewed negative except as stated in [facility] - History History Provided By: Patient - Medical History Medical History: Medical History (Last Updated 10/18/18 @ 10:46 by Kendall Billy) Atrial fibrillation Diabetes GERD (gastroesophageal reflux disease) High triglycerides Hypertension Hypothyroidism Presence of arterial-venous shunt (for dialysis) Renal failure - Surgical History Surgical History: Surgical History (Last Updated 10/18/18 @ 10:44 by Kendall Billy) S/P bilateral below knee amputation - Tobacco History Second Hand Smoke Exposure: No Tobacco Use In Past 30 Days: Yes Smoking Status: Heavy tobacco smoker Tobacco Type: Cigarettes - Alcohol History How Often Do You Have a Drink Containing Alcohol: 4 or more times a week - Substance Use History Substance History: No History of Abuse - Travel History Recent Travel in the [place] Within the Last 8 Weeks: No Recent Travel Out of the Country Within the Last 8 Weeks: No - Immunization History Tetanus Immunization: <5 Years Hx Influenza Vaccine This Season: Yes Medications and Allergies Active Medications: Active Medications Acetaminophen (Tylenol) 650 mg PO UNSCH X1 PRN PRN Reason: SEE LABEL COMMENTS Amlodipine Besylate (Norvasc) 10 mg PO DAILY [facility] Last Admin: 10/19/18 08:47 Dose: 10 mg Atorvastatin Calcium (Lipitor) 20 mg PO DAILY [facility] Last Admin: 10/19/18 08:48 Dose: 20 mg Clonidine HCl (Catapres) 0.1 mg PO UNSCH X1 PRN PRN Reason: SEE LABEL COMMENTS Diltiazem HCl (Cardizem Cd 24hr) 240 mg PO DAILY [facility] Last Admin: 10/19/18 08:47 Dose: 240 mg Diphenhydramine HCl (Benadryl) 25 mg PO UNSCH PRN PRN Reason: SEE LABEL COMMENTS Epoetin Deepak (Epogen Inj) 8,000 unit IV.PUSH UNSCH PRN PRN Reason: SEE LABEL COMMENTS Furosemide (Lasix) 40 mg PO DAILY [facility] Last Admin: 10/19/18 08:48 Dose: 40 mg Gelatin (Gelfoam 12 Mm/7 Mm Topical) 1 foam TOPICAL UNSCH PRN PRN Reason: help stop bleeding from site Gentamicin Sulfate (Gentamicin Inj) 20 mg OTHER WITH DIALYSIS PRN PRN Reason: Dwell Gentamycin Lock Heparin Sodium (Porcine) (Heparin Inj) 0 units OTHER WITH DIALYSIS PRN PRN Reason: Dwell Heparin to Fill Catheter Sodium Chloride (Ns Inj) 250 mls @ 15 mls/hr IV.SIG ONCE WIN Stop: 10/20/18 00:39 Last Admin: 10/19/18 10:46 Dose: Not Given Albumin Human (Flexbumin 25% Inj) 100 mls @ 60 mls/hr IV.SIG WITH DIALYSIS PRN PRN Reason: hypotension / volume replace Sodium Chloride (Ns Inj) 1,000 mls @ 0 mls/hr OTHER .Q0M PRN PRN Reason: for prime and rinse back Last Admin: 10/19/18 09:48 Dose: 100 mls/hr Sodium Chloride (Ns Inj) 1,000 mls @ 200 mls/hr OTHER .Q5H PRN PRN Reason: for dialyzer flush PRN Sodium Chloride (Ns Inj) 1,000 mls @ 0 mls/hr IV.CONT .Q0M PRN PRN Reason: hypotension / volume replace Levothyroxine Sodium (Synthroid) 25 mcg PO DAILY@0600 [facility] Last Admin: 10/19/18 06:19 Dose: 25 mcg Levothyroxine Sodium (Synthroid) 112 mcg PO DAILY@0600 [facility] Last Admin: 10/19/18 06:19 Dose: 112 mcg Mannitol (Mannitol Inj) 12.5 gm IV.PUSH UNSCH PRN PRN Reason: hypotension / volume replace Nitroglycerin (Nitrostat Sl) 0.4 mg SL Q5M PRN PRN Reason: CHEST PAIN Ondansetron HCl (Zofran Inj) 4 mg IV.PUSH UNSCH X1 PRN PRN Reason: WITH DIALYSIS Pantoprazole Sodium (Protonix) 20 mg PO DAILY [facility] Last Admin: 10/19/18 08:48 Dose: 20 mg Sitagliptin Phosphate (Januvia) 25 mg PO DAILY [facility] Sodium Chloride (Ns Flush) 2 ml IV.FLUSH PRN PRN PRN Reason: FLUSH AFTER USING IV ACCESS Sodium Chloride (Ns Flush) 5 ml IV.FLUSH UNSCH PRN PRN Reason: flush each lumen during HD Allergies Allergy/AdvReac Type Severity Reaction Status Date / Time No Known Allergies Allergy Verified 10/18/18 10:48 Home Medications Medication Instructions Recorded Confirmed Type amlodipine 10 mg PO DAILY 10/18/18 10/18/18 History atorvastatin 20 mg PO DAILY 10/18/18 10/18/18 History diltiazem HCl 240 mg PO DAILY 10/18/18 10/18/18 History esomeprazole magnesium 20 mg PO DAILY 10/18/18 10/18/18 History furosemide 40 mg PO DAILY 10/18/18 10/18/18 History levothyroxine [Synthroid] 137 mcg PO DAILY 10/18/18 10/18/18 History sitagliptin [Januvia] 50 mg PO DAILY 10/18/18 10/18/18 History Exam Vital signs: Vital Signs 10/18/18 20:00 10/19/18 00:00 10/19/18 00:34 Temperature 97.5 F L 97.9 F 97.9 F Pulse Rate 94 H 86 86 Respiratory Rate 18 18 18 Blood Pressure 111/53 L 98/53 L 98/53 L Pulse Oximetry 93 L 97 97 10/19/18 00:58 10/19/18 04:00 10/19/18 04:09 Temperature 98.1 F 98.4 F 98.4 F Pulse Rate 100 H 90 90 Respiratory Rate 18 18 18 Blood Pressure 106/59 L 107/74 107/74 Pulse Oximetry 95 95 95 10/19/18 08:00 10/19/18 09:00 10/19/18 09:49 Temperature 97.4 F L 98.1 F Pulse Rate 116 H 100 H 98 H Respiratory Rate 18 18 Blood Pressure 143/63 H 140/79 Pulse Oximetry 97 96 10/19/18 10:06 10/19/18 12:00 12/06/18 12:44 Temperature 98.6 F Pulse Rate 92 H 82 Respiratory Rate 18 Blood Pressure 117/77 Pulse Oximetry 96 97 10/19/18 17:29 Temperature Pulse Rate 92 H Respiratory Rate Blood Pressure Pulse Oximetry Intake & Output 10/18/18 10/19/18 10/19/18 18:59 06:59 18:59 Intake Total 415 / 415 250 / 250 Output Total 30 / 30 1000 / 1000 Balance 385 / 385 -750 / -750 Weight 70.1 kg 67.2 kg Intake: IV 250 / 250 NS Inj 250 ML @ 15 mls/hr IV. 250 / 250 SIG ONCE WIN Rx#:[id number] Oral 0 / 0 Other 15 / 15 Rbc As-3 Leukoreduced Unit 15 / 15 [id number] Intake (Blood Product) Amt 400 / 400 0 / 0 Rbc As-3 Leukoreduced Unit 0 / 0 [id number] Rbc As-3 Leukoreduced Unit 400 / 400 [id number] Output: Urine 30 / 30 Hemodialysis Amount 1000 / 1000 Other: # Bowel Movements 0 Weight On Admission 70.1 kg Narrative: GENERAL: Patient presently pleasant not in respiratory distress. SKIN: Warm and dry. HEAD: Normocephalic. EYES: No scleral icterus. No injection or drainage. NECK: Supple, trachea midline. No JVD or lymphadenopathy. CARDIOVASCULAR: Regular rate and rhythm without murmurs, gallops, or rubs. RESPIRATORY: Breath sounds equal bilaterally. No accessory muscle use. GASTROINTESTINAL: Abdomen soft, non-tender, nondistended. MUSCULOSKELETAL: No cyanosis, or edema. Right AKA/left BKA Results - Lab Results 10/19/18 04:19 10/18/18 10:58 Most recent lab results Calcium 7.9 mg/dL (8.5-10.1) L 10/18/18 10:58 Assessment and Plan - Assessment (1) ESRD (end stage renal disease) Code(s): N18.6 - End stage renal disease Status: Acute Plan: Patient received a partial dialysis treatment today secondary to noncompliance with treatment duration which unfortunately is a reflection of his outpatient behavior also despite ongoing counseling. Patient not receptive to counseling and has been rude at times. Patient to continue dialysis as an outpatient Medication should be adjusted for the patient's end-stage renal disease when indicated. Januvia has been adjusted. Avoid gadolinium. (2) Atrial fibrillation Code(s): I48.91 - Unspecified atrial fibrillation Status: Acute Plan: As before deferred to primary MD in regard to management of anticoagulation. (3) Anemia Code(s): D64.9 - Anemia, unspecified Status: Acute (4) Noncompliance with renal dialysis Code(s): Z91.15 - Patient's noncompliance with renal dialysis Status: Acute - Plan Unfortunately I do not anticipate any improvement in the patient's noncompliant behavior as he is not responsive to ongoing counseling regarding potential consequences of noncompliance. In view of this his long-term prognosis is most likely poor.
[2018-10-19 18:10] VITALS: BP 136/68; TEMP 97.8; O2SAT 96
== END 2018-10-19 18:30 | disposition home or self-care (01) ==
LOC: NEPE 10:34 → NEDA 13:25 → N04 16:54
PROVIDERS: ADMIT Family Medicine; ATTEND Family Medicine